=== PATIENT | female | born 1930 | race Caucasian/White ===

== ENCOUNTER → 2016-07-20 | Outpatient (CLI) | payer MEDICARE, OTHER ==
--- NOTE | 2016-07-20 16:40 | WOMENS IMAGING REPORT ---
EXAM DESCRIPTION: BILAT SCREENING MAMMO W/CAD COMPLETED DATE/TIME: 07/20/2016 4:19 pm REASON FOR STUDY: Z12.31, ROUTINE SCREENING MAMMO Z12.31 ENCNTR SCREEN MAMMOGRAM FOR MALIGNANT NEOP LASM OF TAMERA COMPARISON: Annual priors dating back to February 2011. TECHNIQUE: Standard craniocaudal and mediolateral oblique views of each breast recorded using digita l acquisition. LIMITATIONS: Positioning. FINDINGS: Findings present which are benign by mammographic criteria. No suspicious masses, calcifi cations or architectural distortion. Read with the assistance of CAD. .[facility] - R2 Cenova Version 1.3 .[facility] - R2 Cenova Version 1.3 .[facility] - R2 Cenova Version 2.4 .[facility] - R2 Cenova Version 2.4 .[facility] - R2 Ems Educator Version 9.2 Benign mammographic findings may include one or more of the following: Smooth masses, popcorn/rim/co arse calcifications, asymmetries, post-procedure changes, and lesions with long-standing stability. BREAST DENSITY: a. The breasts are almost entirely fatty. BIRAD: 2 BENIGN FINDING(S) RECOMMENDATION: ROUTINE SCREENING COMMENT: PATIENT NOTIFIED BY LETTER. [employer] recommends an annual screening mammogram for women aged 40 years or over. Each patient will receive a reminder prior to the anniversary date of her mammogram. The [employer] [place] [employer] (ACR) has developed recommendations for screening MRI of the breast s in certain patient populations, to be used in conjunction with mammography. Breast MRI surveillanc e may be appropriate for women with more than 20% lifetime risk of developing breast cancer as deter mined by genetic testing, significant family history of the disease, or history of mantle radiation f or Hodgkins Disease. ACR Practice Guidelines 2008. TECHNICAL DOCUMENTATION: FINDING NUMBER: (1) ASSESSMENT: (1) JOB ID: [id number] [employer]- All Rights Reserved
== END ==
LOC: WI 14:49
PROVIDERS: ATTEND Specialist
DX: Z12.31 Encounter for screening mammogram for malignant neoplasm of breast (principal)
CPT/HCPCS: 77067; G0202

== ENCOUNTER 2016-12-11 21:00 | Inpatient (IN) | payer MEDICARE, OTHER ==
[2016-12-11] MEDS ORDERED: CEFEPIME 2 GM/D5W RTU 50 ML IV ONE (21:06)
[2016-12-11] MEDS ORDERED: NORMAL SALINE 1000 ML 1,000 ML IV ONE ×2 (21:06→22:24)
[2016-12-11] MEDS ORDERED: ACETAMINOPHEN 325 MG TABLET PO ONE (21:06)
[2016-12-11] MEDS ORDERED: ACETAMINOPHEN 650 MG SUPP.RECT PR ONE (21:08)
[2016-12-11] MEDS ORDERED: VANCOMYCIN HCL INJ 1000 MG VIAL IV ONE (21:23)
--- NOTE | 2016-12-11 21:26 | ER Document Report ---
ED General - General Stated Complaint: ALTERED MENTAL STATUS Time Seen by Provider: 12/11/16 21:04 Cannot obtain history due to: Unstable vital signs, Altered mental status Notes: Patient is an 86-year-old female presenting by EMS with altered mental status and a fever. Patient herself is unable to provide any meaningful history secondary to altered mental status at time of arrival. EMS reports that apparently they were called to the patient's house earlier this morning for episode of hypotension but transport was declined for unclear reasons. They state on arrival to the patient's house today she was effectively unresponsive, extremely ill in appearance. They note that she became somewhat more responsive , at least opening her eyes spontaneously after beginning to receive IV fluids. Her reports that she has a history of similar presentations in the past secondary to sepsis due to urinary tract infections. TRAVEL OUTSIDE OF THE [place] IN LAST 30 DAYS: No - Related Data Allergies/Adverse Reactions: diazepam [From Valium] Allergy (Verified 12/12/16 00:50) Past Medical History - General Information source: Emergency Med Personnel Cannot obtain history due to: Unstable vital signs, Altered mental status - Social History Smoking Status: Unknown if Ever Smoked Lives with: Family Family History: Reviewed & Not Pertinent - Past Medical History Cardiac Medical History: Reports: Hx Hypercholesterolemia, Hx Hypertension Denies: Hx Coronary Artery Disease, Hx Heart Attack Pulmonary Medical History: Reports: Hx Pneumonia Denies: Hx Asthma, Hx Bronchitis, Hx COPD, Hx Tuberculosis Neurological Medical History: Reports: Hx Cerebrovascular Accident. 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 HEAD: Atraumatic, normocephalic. EYES: Pupils equal round and reactive to light, extraocular movements intact, sclera anicteric, conjunctiva are normal. ENT: nares patent, oropharynx clear without exudates. Extremely dry mucous membranes. NECK: Normal range of motion, supple without lymphadenopathy LUNGS: Breath sounds clear to auscultation bilaterally and equal. No wheezes rales or rhonchi. HEART: Regular tachycardia without murmurs ABDOMEN: Soft, nontender, normoactive bowel sounds. No guarding, no rebound. No masses appreciated. EXTREMITIES: Normal range of motion, no pitting or edema. No cyanosis. NEUROLOGICAL: No focal neurological deficits. Moves all extremities spontaneously and on command. PSYCH: Lethargic, seems quite confused. Oriented to person only. SKIN: Warm, Dry, poor skin turgor Course - Re-evaluation Re-evalutation: 12/11/16 21:24 Patient presents altered, lethargic, ill in appearance with tachycardia, tachypnea, fever consistent with sepsis possibly severe sepsis given her altered mental status and apparent hypotension for EMS. Immediately upon arrival to point of access were obtained. Rectal acetaminophen administered. She will be started on both cefepime and vancomycin for broad-spectrum coverage. Blood cultures, venous gas, lactate, and appropriate laboratories have been drawn. A stat portable chest x-ray to be obtained. We will catheterized for a urine specimen as patient has been ill in the past for pyelonephritis with similar presentation. However, given her ill appearance and vitals at time of arrival she is critically ill and will require frequent reassessments. 12/11/16 22:23 Urinalysis demonstrates findings consistent with an acute pyelonephritis. Patient tachycardia has improved although she remains profoundly confused beyond her baseline. Will continue to assess frequently. 12/12/16 00:26 Patient's tachycardia remains improved, heart rate currently is 90. Blood pressure is also normalized at 119 and 79. Patient is no longer tachypneic. Mental status is improving closer to her baseline per her at the bedside. She is in stable condition at this time. Pending admission to the hospitalist - Vital Signs Vital signs: Temp Pulse Resp BP Pulse Ox 100.6 F H 19 103/66 97 12/12/16 00:11 12/12/16 02:00 12/12/16 02:00 12/12/16 02:00 - Laboratory Result Diagrams: 12/11/16 21:32 12/11/16 21:32 Laboratory results interpreted by me: 12/11/16 12/11/16 12/11/16 21:32 21:32 21:32 RDW 19.5 H Seg Neuts % (Manual) 90 H Lymphocytes % (Manual) 5 L Monocytes % (Manual) 2 L Abs Neuts (Manual) 9.0 H BUN 22 H Glucose 138 H Lactic Acid 2.3 H Urine Protein Urine Nitrite Ur Leukocyte Esterase Urine Ascorbic Acid 12/11/16 21:32 RDW Seg Neuts % (Manual) Lymphocytes % (Manual) Monocytes % (Manual) Abs Neuts (Manual) BUN Glucose Lactic Acid Urine Protein 100 H Urine Nitrite POSITIVE H Ur Leukocyte Esterase MODERATE H Urine Ascorbic Acid 40 H - Diagnostic Test Radiology reviewed: Image reviewed, Reports reviewed Radiology results interpreted by me: 12/12/16 02:44 Chest x-ray: No acute infiltrate or pneumothorax Critical Care Note - Critical Care Note Total time excluding time spent on procedures (mins): 40 Comments: Critical care time spent obtaining history from patient or surrogate, discussions with consultants, development of treatment plan with patient or surrogate, evaluation of patient's response to treatment, examination of patient , ordering and performing treatments and interventions, ordering and review of laboratory studies, re-evaluation of patient's condition, ordering and review of radiographic studies and review of old charts Discharge - Discharge Clinical Impression: Pyelonephritis, Encephalopathy Sepsis Qualifiers: Sepsis type: sepsis due to unspecified organism Qualified Code(s): A41.9 - Sepsis, unspecified organism Condition: Fair Disposition: ADMITTED INPATIENT Admitting Provider: [facility] Unit Admitted: [facility]
--- NOTE | 2016-12-11 21:50 | RADIOLOGY REPORT (SQ) ---
EXAM DESCRIPTION: CHEST SINGLE VIEW COMPLETED DATE/TIME: 12/11/2016 9:38 pm REASON FOR STUDY: fever COMPARISON: 12/29/2015 EXAM PARAMETERS: NUMBER OF VIEWS: One view. TECHNIQUE: Single frontal radiographic view of the chest acquired. RADIATION DOSE: NA LIMITATIONS: None. FINDINGS: LUNGS AND PLEURA: No opacities, masses or pneumothorax. No pleural effusion. MEDIASTINUM AND HILAR STRUCTURES: No masses. Contour normal. HEART AND VASCULAR STRUCTURES: Heart normal in size. Normal vasculature. BONES: No acute findings. HARDWARE: None in the chest. OTHER: No other significant finding. IMPRESSION: NO ACUTE RADIOGRAPHIC FINDING IN THE CHEST. TECHNICAL DOCUMENTATION: JOB ID: [id number]
[2016-12-11 22:00] LABS: HEMATOCRIT 38.7 % (36.0-47.0); HEMOGLOBIN 12.4 g/dL (12.0-15.5); HGB HCT DIFFERENCE -1.5; MEAN CORPUSCULAR HEMOGLOBIN 29.5 pg (27.0-33.4); MEAN CORPUSCULAR HGB CONC 32.1 g/dL (32.0-36.0); MEAN CORPUSCULAR VOLUME 92 fl (80-97); RED BLOOD COUNT 4.21 10^6/uL (3.72-5.28); RED CELL DISTRIBUTION WIDTH 19.5 % (11.5-14.0); WHITE BLOOD COUNT 9.7 10^3/uL (4.0-10.5)
[2016-12-11 22:02] LABS: VENOUS BLOOD BASE EXCESS -2.9 mmol/L; VENOUS BLOOD HCO3 22.3 mmol/L (20-32); VENOUS BLOOD PCO2 40.5 mmHg (35-63); VENOUS BLOOD PH 7.36 (7.30-7.42)
[2016-12-11 22:11] LABS: ANION GAP 13 (5-19); BLOOD UREA NITROGEN 22 mg/dL (7-20); CARBON DIOXIDE 22 mmol/L (22-30); CHLORIDE 104 mmol/L (98-107); CREATININE RESULT 0.69 mg/dL (0.52-1.25); GLUCOSE 138 mg/dL (75-110); POTASSIUM 4.2 mmol/L (3.6-5.0); SODIUM 139.3 mmol/L (137-145)
[2016-12-11 22:21] LABS: APPEARANCE,URINE CLOUDY; BILIRUBIN,URINE NEGATIVE (NEGATIVE); GLUCOSE, URINE NEGATIVE (NEGATIVE); KETONES,URINE NEGATIVE (NEGATIVE); LEUKOCYTE ESTERASE,URINE MODERATE (NEGATIVE); NITRITE,URINE POSITIVE (NEGATIVE); PROTEIN,URINE 100 mg/dL (NEGATIVE); URINE SPECIFIC GRAVITY 1.013; UROBILINOGEN,URINE NEGATIVE mg/dL (<2.0)
[2016-12-11 22:24] LABS: BAND NEUTROPHILS % (MANUAL) 3 % (3-5); BASOPHILS % (MANUAL) 0 % (0-2); EOSINOPHILS % (MANUAL) 0 % (0-6); LYMPHOCYTES % (MANUAL) 5 % (13-45); TOTAL CELLS COUNTED 100
[2016-12-11 22:27] LABS: ANISOCYTOSIS 2+; OVALOCYTES SLIGHT; POIKILOCYTOSIS 1+; SCHISTOCYTES SLIGHT; TOXIC GRANULATION SLIGHT; TOXIC VACUOLATION PRESENT
[2016-12-12] MEDS ORDERED: GLUCAGON,HUMAN RECOMB 1 MG INJ IM PRN (04:28)
[2016-12-12] MEDS ORDERED: DEXTROSE 40% GEL 15 GM TUBE PO PRN ×2 (04:28)
[2016-12-12] MEDS ORDERED: DEXTROSE 50%-WATER 25 GM/50 ML DISP.SYRIN IV PRN ×2 (04:28)
[2016-12-12] MEDS ORDERED: NORMAL SALINE 1000 ML 1,000 ML IV PRN (04:30)
[2016-12-12] MEDS ORDERED: MAGNESIUM HYDROXIDE SUSP 30 ML UDCUP PO PRN (04:31)
[2016-12-12] MEDS ORDERED: PROMETHAZINE HCL 25 MG TABLET PO PRN (04:33)
[2016-12-12] MEDS ORDERED: VANCOMYCIN HCL 0 MG in DEXTROSE 5%-WATER 250 ML IV NR (04:45)
--- NOTE | 2016-12-12 04:47 | PDOC H&P ---
History of Present Illness Admission Date/PCP: 12/12/16 03:38 CORAZON CARRION PA-C Patient complains of: ams History of Present Illness: SANDY DANG is a 86 year old female with underlying hyperlipidemia, hypertension, hypothyroidism, and restless leg syndrome, along with a history of sepsis secondary to urinary tract infections, who presents to the emergency room for evaluation of above complaints. Patient has been discussed with emergency room physician who evaluated the patient. Patient is oriented to location and year, but not sure why she is in the hospital and is able to provide no history whatsoever in terms of acute or chronic events, review of systems, personal habits, family history, etc. No friends or family are present. Old inpatient records are reviewed. Intermittent confused answers to basic questions. EMS reportedly called to patient's house earlier the morning of December 11 for an episode of hypotension, but transport was declined for unclear reasons. EMS stated on arrival to the patient's house for their second trip, she was effectively unresponsive, extremely ill in appearance. She became somewhat more responsive, at least opening her eyes spontaneously, after IV fluids were started. Initial clinical picture upon emergency room arrival remained quite concerning, consistent with sepsis of unknown origin. Per emergency room physician and nursing staff, she has improved considerably with treatment. reportedly stated patient has had similar appearances in the past with sepsis due to urinary tract infections. She currently denies pain. Hospitalized on our service December 22- of last year, with final diagnoses including hypoglycemia in setting of patient with diabetes mellitus type 2, and urinary tract infection, responsive to Levaquin. History and physical and discharge summary have been reviewed Laboratory results are listed in [facility] and are reviewed. X-ray summary results are listed below, with full report(s) reviewed. . Social history/personal habits: . Reportedly no use of tobacco alcohol or illicit drugs. No further information available this point in time. Allergies/adverse reactions are listed in [facility] and are reviewed. Home medications initially autopopulated into IM5 may not accurately reflect patient's true medications, dosages, and/or frequencies. dyno technician to reconcile medications. Unfortunately, patient not able to provide any information related to medications/dosages/frequencies. REVIEW OF SYSTEMS: See history and present illness. No further information available this point in time. PHYSICAL EXAMINATION: 5 feet tall. 72.6 kg. BMI 31.2 kg/m. Blood pressure 129/58. Pulse 75 and regular. 97% saturation on 3 L oxygen per nasal cannula. Respirations are 22 and unlabored. Slightly obese otherwise well-nourished well-developed female appearing a number of years younger than her stated age. Pleasant awake alert and cooperative. Appears somewhat anxious, and to feel a bit under the weather , so to speak. Female emergency room nurse Mary Ellen is present, along with male emergency room nursing educator Tavo. Skin is warm and dry. No grossly obvious evidence of rash in areas of skin examined. No subcutaneous nodules palpated. ENT: Hearing grossly normal to normal conversation. Tongue midline on protrusion pink and slightly tacky. Eyes: No scleral icterus. Pupils equal and reactive to light at 4 mm. [place] conjunctivae. No raccoon eyes. Neck is supple and nontender to gentle active range of motion and palpation. Midline trachea. No palpable thyroid nodule mass enlargement or tenderness. Lymphatic: No palpable cervical or clavicular nodes. Neck and lymphatic exams limited by patient body habitus. Psychiatric: Somewhat limited evaluation, due to above issues. Please see History and present illness. Lungs: Auscultation reveals clear and equal breath sounds bilaterally. No use of accessory respiratory muscles. Patient is noted to have an intermittent slightly productive cough. Cardiovascular: Heart regular rate and rhythm, without gallop murmur or rub. No carotid or abdominal aortic bruits. Mild bilateral slightly pitting symmetric calf ankle and pedal edema. Faintly palpable dorsalis pedis pulses. Abdomen:soft somewhat obese nontender with positive bowel sounds. Unable to adequately evaluate abdomen for masses or organomegaly due to body habitus. Extremities: Feet are warm and dry. No calf tenderness to compression. Gentle manipulation of lower extremities fails to reveal any obvious evidence of injury or instability to knees hips or ankles. Neurologic: Moves all 4 extremities grossly normally. Patellar reflexes absent. Absent Babinski. Light touch somewhat difficult to adequately determine due to her mental status. Dorsiflexion and plantarflexion of feet 5 / 5 and symmetric. Past Medical History Past Medical History: Information obtained from review of current and old records. Patient not able to provide any information herself. Cardiac Medical History: Reports: Hyperlipidema, Hypertension Denies: Coronary Artery Disease, Myocardial Infarction Pulmonary Medical History: Reports: Pneumonia Denies: Asthma, Bronchitis, Chronic Obstructive Pulmonary Disease (COPD), Tuberculosis Neurological Medical History: Denies: Seizures Endocrine Medical History: Reports: Diabetes Mellitus Type 2 Musculoskeltal Medical History: Reports: Arthritis - Neck Hematology: Denies: Anemia Past Surgical History Past Surgical History: Information obtained from review of current and old records. Patient not able to provide any information herself. Past Surgical History: Reports: Appendectomy, Cholecystectomy Social History Information Source: Emergency Med Personnel, [facility] Records Lives with: Family Smoking Status: Unknown if Ever Smoked Frequency of Alcohol Use: None Hx Recreational Drug Use: No Hx Prescription Drug Abuse: No - Advance Directive Resuscitation Status: Full Code Surrogate healthcare decision maker:: Uncertain; likely . Family History Family History: Reviewed & Not Pertinent Parental Family History Reviewed: Yes - Father of coronary artery disease. Mother of complications of DM Children Family History Reviewed: No - No further information available this point in time. Sibling(s) Family History Reviewed.: No - No further information available this point in time. Medication/Allergy Home Medications: Amlodipine Besylate [Norvasc 10 mg Tablet] 10 mg PO QHS 12/12/16 Anastrozole [Arimidex 1 mg Tablet] 1 mg PO DAILY 12/12/16 Ascorbic Acid [Vitamin C 500 mg Tablet] 500 mg PO BID 12/12/16 Aspirin [Aspirin 325 mg Tablet] 325 mg PO QHS 12/12/16 Atorvastatin Calcium [Lipitor 20 mg Tablet] 20 mg PO QHS 12/12/16 Calcium Carbonate/Vitamin D3 [Oyster Shell 500-Vit D3 200 Tb] 1 tab PO QPM 12/12 Donepezil HCl [Aricept] 10 mg PO QPM 12/12/16 Eplerenone [Inspra] 50 mg PO QAM 12/12/16 Escitalopram Oxalate [Lexapro] 20 mg PO QPM 12/12/16 Ferrous Sulfate [Feosol 325 mg Tablet] 325 mg PO BID 12/12/16 Glimepiride [Amaryl 1 mg Tablet] 1 mg PO BID 12/12/16 Levothyroxine Sodium [Synthroid] 137 mcg PO QAM 12/12/16 Losartan Potassium [Cozaar 50 mg Tablet] 50 mg PO QHS 12/12/16 Metformin HCl [Glucophage] 500 mg PO BID 12/12/16 Omeprazole 20 mg PO QHS 12/12/16 Ropinirole HCl [Requip 2 mg Tablet] 2 mg PO BID 07/01/17 Sitagliptin Phosphate [Januvia 50 mg Tablet] 50 mg PO BID 12/12/16 Allergies/Adverse Reactions: diazepam [From Valium] Allergy (Verified 12/12/16 00:50) Physical Exam Vital Signs: Temp Pulse Resp BP Pulse Ox 100.6 F H 19 103/66 97 12/12/16 00:11 12/12/16 02:00 12/12/16 02:00 12/12/16 02:00 Results Impressions: Chest X-Ray 12/11/16 21:06 IMPRESSION: NO ACUTE RADIOGRAPHIC FINDING IN THE CHEST. Assessment & Plan - Diagnosis (1) Acute encephalopathy Is this a current diagnosis for this admission?: YesPlan: Likely secondary to underlying urinary tract infection. Should clear with time and treatment. (2) UTI (urinary tract infection) Qualifiers: Urinary tract infection type: site unspecified Is this a current diagnosis for this admission?: YesPlan: Urine culture results from December 2015 revealed. Antibiotics will consist of cefepime and intravenous vancomycin; pharmacy to assist with vancomycin dosing. I have strongly encouraged patient not to get out of bed, to avoid a fall with injury. Knee high SCDs for DVT prophylaxis, along with subcutaneous Lovenox. Impression and plans were discussed with patient. Time spent in evaluation and management of patient: 59 minutes. (3) HLD (hyperlipidemia) Qualifiers: Hyperlipidemia type: unspecified Qualified Code(s): E78.5 - Hyperlipidemia, unspecified Is this a current diagnosis for this admission?: YesPlan: Resume home medications as appropriate once these have been determined and reviewed. (4) HTN (hypertension) Qualifiers: Hypertension type: essential hypertension Qualified Code(s): I10 - Essential (primary) hypertension Is this a current diagnosis for this admission?: YesPlan: Resume home medications as appropriate once these have been determined and reviewed. - Inpatient Certification Based on my medical assessment, after consideration of the patient's comorbidities, presenting symptoms, or acuity I expect that the services needed warrant INPATIENT care.: Yes I certify that my determination is in accordance with my understanding of Medicare's requirements for reasonable and necessary INPATIENT services [42 CFR 412.3e].: Yes Medical Necessity: Need Close Monitoring Due to Risk of Patient Decompensation, Need For IV Fluids, Need For Continuous Telemetry Monitoring, Need for IV Antibiotics, Risk of Complication if Not Cared For in Hospital, Risk of Diagnosis Which Will Require Inpatient Eval/Care/Monitoring Post Hospital Care: D/C or Transfer Summary
[2016-12-12 07:03] LABS: ABSOLUTE LYMPHOCYTES (AUTO) 1.2 10^3/uL (0.5-4.7); BASOPHILS % (AUTO) 0.1 % (0-2); EOSINOPHILS % (AUTO) 0.1 % (0-6); HEMATOCRIT 35.6 % (36.0-47.0); HEMOGLOBIN 11.4 g/dL (12.0-15.5); HGB HCT DIFFERENCE -1.4; LYMPHOCYTES % (AUTO) 7.7 % (13-45); MEAN CORPUSCULAR HEMOGLOBIN 29.2 pg (27.0-33.4); MEAN CORPUSCULAR HGB CONC 31.9 g/dL (32.0-36.0); MEAN CORPUSCULAR VOLUME 92 fl (80-97); MONOCYTES % (AUTO) 12.3 % (3-13); RED CELL DISTRIBUTION WIDTH 20.1 % (11.5-14.0); SEGMENTED NEUTROPHILS % (AUTO) 79.8 % (42-78); WHITE BLOOD COUNT 16.3 10^3/uL (4.0-10.5)
[2016-12-12 07:14] LABS: ALANINE AMINOTRANSFERASE 105 U/L (9-52); ALBUMIN 3.3 g/dL (3.5-5.0); ALKALINE PHOSPHATASE 129 U/L (38-126); ANION GAP 7 (5-19); ASPARTATE AMINO TRANSFERASE 102 U/L (14-36); BILIRUBIN,DIRECT 0.3 mg/dL (0.0-0.4); BILIRUBIN,TOTAL 0.5 mg/dL (0.2-1.3); BLOOD UREA NITROGEN 17 mg/dL (7-20); CALCIUM 8.8 mg/dL (8.4-10.2); CARBON DIOXIDE 27 mmol/L (22-30); CHLORIDE 105 mmol/L (98-107); CREATININE RESULT 0.68 mg/dL (0.52-1.25); GLUCOSE 148 mg/dL (75-110); MAGNESIUM 1.8 mg/dL (1.6-2.3); TOTAL PROTEIN 5.9 g/dL (6.3-8.2)
[2016-12-12 07:18] LABS: ANISOCYTOSIS 2+; POIKILOCYTOSIS SLIGHT; POLYCHROMASIA SLIGHT; TARGET CELLS SLIGHT; TOXIC GRANULATION 1+
[2016-12-12] MEDS: DOCUSATE SODIUM 100 MG CAPSULE PO SCH ×2 (10:30→17:54)
[2016-12-12] MEDS: ENOXAPARIN SODIUM INJ 40 MG/0.4 ML DISP.SYRIN SUBCUT SCH (10:31)
[2016-12-12] MEDS: CEFEPIME 2 GM/D5W RTU 50 ML IV SCH ×2 (10:35→22:04)
[2016-12-12] MEDS ORDERED: LEVOTHYROXINE SODIUM 0.025 MG TABLET PO ONE (14:30)
[2016-12-12] MEDS ORDERED: LEVOTHYROXINE SODIUM 0.112 MG TABLET PO ONE (14:30)
[2016-12-12] MEDS: ACETAMINOPHEN 325 MG TABLET PO PRN (15:38)
[2016-12-12] MEDS: DONEPEZIL HCL 5 MG TABLET PO SCH (17:53)
[2016-12-12] MEDS: ESCITALOPRAM OXALATE 10 MG TABLET PO SCH (17:54)
[2016-12-12] MEDS ORDERED: (PENDING PHARMACY ID) (Donepezil Hcl [Aricept] 10 MG) PO SCH (18:00)
[2016-12-12] MEDS: ASPIRIN 325 MG TABLET PO SCH (22:03)
[2016-12-13 07:04] LABS: ALANINE AMINOTRANSFERASE 79 U/L (9-52); ALBUMIN 3.5 g/dL (3.5-5.0); ALKALINE PHOSPHATASE 107 U/L (38-126); ANION GAP 7 (5-19); ASPARTATE AMINO TRANSFERASE 64 U/L (14-36); BILIRUBIN,DIRECT 0.3 mg/dL (0.0-0.4); BILIRUBIN,TOTAL 0.5 mg/dL (0.2-1.3); BLOOD UREA NITROGEN 16 mg/dL (7-20); CALCIUM 8.9 mg/dL (8.4-10.2); CARBON DIOXIDE 27 mmol/L (22-30); CHLORIDE 106 mmol/L (98-107); CREATININE RESULT 0.64 mg/dL (0.52-1.25); GLUCOSE 118 mg/dL (75-110); POTASSIUM 4.4 mmol/L (3.6-5.0); SODIUM 140.4 mmol/L (137-145); TOTAL PROTEIN 6.4 g/dL (6.3-8.2)
[2016-12-13 07:15] LABS: ABSOLUTE EOSINOPHILS # (AUTO) 0.1 10^3/uL (0.0-0.6); ABSOLUTE LYMPHOCYTES (AUTO) 1.2 10^3/uL (0.5-4.7); ABSOLUTE MONOCYTES (AUTO) 1.6 10^3/uL (0.1-1.4); ABSOLUTE NEUT (AUTO) 6.4 10^3/uL (1.7-8.2); BASOPHILS % (AUTO) 0.4 % (0-2); EOSINOPHILS % (AUTO) 0.9 % (0-6); HEMATOCRIT 39.5 % (36.0-47.0); HEMOGLOBIN 12.7 g/dL (12.0-15.5); HGB HCT DIFFERENCE -1.4; LYMPHOCYTES % (AUTO) 13.1 % (13-45); MEAN CORPUSCULAR HEMOGLOBIN 29.7 pg (27.0-33.4); MEAN CORPUSCULAR HGB CONC 32.1 g/dL (32.0-36.0); MEAN CORPUSCULAR VOLUME 92 fl (80-97); MONOCYTES % (AUTO) 16.9 % (3-13); RED BLOOD COUNT 4.27 10^6/uL (3.72-5.28); RED CELL DISTRIBUTION WIDTH 19.8 % (11.5-14.0); SEGMENTED NEUTROPHILS % (AUTO) 68.7 % (42-78); WHITE BLOOD COUNT 9.3 10^3/uL (4.0-10.5)
[2016-12-13 07:23] LABS: ANISOCYTOSIS 2+; BURR CELLS SLIGHT; OVALOCYTES SLIGHT; PLATELET CLUMPS PRESENT; POIKILOCYTOSIS 1+
[2016-12-13] MEDS ORDERED: (PENDING PHARMACY ID) (Levothyroxine Sodium [Synthroid] 137 MCG) PO SCH (08:00)
[2016-12-13] MEDS: LEVOTHYROXINE SODIUM 0.025 MG TABLET PO SCH (08:02)
[2016-12-13] MEDS: LEVOTHYROXINE SODIUM 0.112 MG TABLET PO SCH (08:02)
[2016-12-13] MEDS: CEFEPIME 2 GM/D5W RTU 50 ML IV SCH ×2 (09:05→21:46)
[2016-12-13] MEDS: DOCUSATE SODIUM 100 MG CAPSULE PO SCH ×2 (09:06→17:08)
[2016-12-13] MEDS: ENOXAPARIN SODIUM INJ 40 MG/0.4 ML DISP.SYRIN SUBCUT SCH (09:07)
--- NOTE | 2016-12-13 14:04 | PDOC PROGRESS REPORT ---
Subjective Progress Note for:: 12/13/16 Subjective:: reason for visit: f/u bacteremia, UTI, encephalopathy hospital course: per H&P "SANDY DANG is a 86 year old female with underlying hyperlipidemia, hypertension, hypothyroidism, and restless leg syndrome, along with a history of sepsis secondary to urinary tract infections, who presents to the emergency room for evaluation of above complaints. Patient has been discussed with emergency room physician who evaluated the patient. Patient is oriented to location and year, but not sure why she is in the hospital and is able to provide no history whatsoever in terms of acute or chronic events, review of systems, personal habits, family history, etc. No friends or family are present. Old inpatient records are reviewed. Intermittent confused answers to basic questions. EMS reportedly called the patient's house earlier the morning of December 11 for an episode of hypotension, but transport was declined for unclear reasons. EMS stated on arrival to the patient's house for her second trip, she was effectively unresponsive, extremely ill in appearance. She became somewhat more responsive, at least opening her eyes spontaneously, after IV fluids were started. Initial clinical picture upon emergency room arrival remained quite concerning, consistent with sepsis of unknown origin. Per emergency room physician and nursing staff, she has improved considerably with treatment. reportedly stated patient has had similar appearances in the past with sepsis due to urinary tract infections. She currently denies pain. Hospitalized on our service December 22- of last year, with final diagnoses including hypoglycemia in setting of patient with diabetes mellitus type 2, and urinary tract infection, responsive to Levaquin. History and physical and discharge summary have been reviewed. " cultures are showing a probable ecoli as the source for her ills. she has returned to baseline with treatment as for her strength and mental state. she is now afebrile. I suspect she can d/c home in the morning, once her final cultures are noted. ROS: denies chest pain, palpitations, n/v/d; all systems reviewed, see above, remaining systems negative. Physical Exam Vital Signs: Temp Pulse Resp BP Pulse Ox 99.0 F 69 20 120/85 100 12/13/16 12:08 12/13/16 12:08 12/13/16 12:08 12/13/16 12:08 12/13/16 12:08 Intake & Output 12/12/16 12/13/16 12/14/16 06:59 06:59 06:59 Intake Total 2160 500 Balance 2160 500 Weight 75 kg General appearance: PRESENT: no acute distress, well-developed, well-nourished Head exam: PRESENT: atraumatic, normocephalic Eye exam: PRESENT: EOMI. ABSENT: conjunctival injection, scleral icterus Mouth exam: PRESENT: moist, neck supple Neck exam: ABSENT: carotid bruit, JVD, lymphadenopathy, tenderness Respiratory exam: PRESENT: clear to auscultation stella. ABSENT: accessory muscle use Cardiovascular exam: PRESENT: RRR. ABSENT: systolic murmur Pulses: PRESENT: normal radial pulses, normal dorsalis pedis pul GI/Abdominal exam: PRESENT: normal bowel sounds, soft. ABSENT: tenderness Extremities exam: ABSENT: calf tenderness, pedal edema Musculoskeletal exam: PRESENT: ambulatory, full ROM Neurological exam: PRESENT: alert, awake, oriented to person, oriented to place , oriented to time Psychiatric exam: PRESENT: appropriate affect, normal mood Skin exam: PRESENT: warm, other - pale Results Laboratory Results: 12/13/16 06:25 12/13/16 06:25 12/13/16 12/13/16 12/13/16 06:25 06:25 06:25 WBC 9.3 RBC 4.27 Hgb 12.7 Hct 39.5 MCV 92 MCH 29.7 MCHC 32.1 RDW 19.8 H Plt Count 218 Seg Neutrophils % 68.7 Lymphocytes % 13.1 Monocytes % 16.9 H Eosinophils % 0.9 Basophils % 0.4 Absolute Neutrophils 6.4 Absolute Lymphocytes 1.2 Absolute Monocytes 1.6 H Absolute Eosinophils 0.1 Absolute Basophils 0.0 Sodium 140.4 Potassium 4.4 Chloride 106 Carbon Dioxide 27 Anion Gap 7 BUN 16 Creatinine 0.64 Est GFR ( Amer) > 60 Est GFR (Non-Af Amer) > 60 Glucose 118 H Calcium 8.9 Total Bilirubin 0.5 AST 64 H ALT 79 H Alkaline Phosphatase 107 Ammonia 9.5 Total Protein 6.4 Albumin 3.5 Assessment & Plan - Diagnosis (1) Bacteremia Is this a current diagnosis for this admission?: YesPlan: probable e coli from UTI. continue cefepime until final culx's negative. will need 2 wks abx (2) Acute encephalopathy Is this a current diagnosis for this admission?: YesPlan: resolved; 2/2 above (3) UTI (urinary tract infection) Qualifiers: Urinary tract infection type: site unspecified Is this a current diagnosis for this admission?: YesPlan: e coli; continue abx - Time Time Spent with patient: 25-34 minutes Medications reviewed and adjusted accordingly: Yes Anticipated discharge: Home Within: within 24 hours
[2016-12-13] MEDS: DONEPEZIL HCL 5 MG TABLET PO SCH (17:08)
[2016-12-13] MEDS: ESCITALOPRAM OXALATE 10 MG TABLET PO SCH (17:08)
[2016-12-13] MEDS: ASPIRIN 325 MG TABLET PO SCH (21:45)
[2016-12-14] MEDS ORDERED: GUAIFENESIN SYRP 200 MG/10 ML UDC PO PRN (00:44)
[2016-12-14] MEDS: LEVOTHYROXINE SODIUM 0.112 MG TABLET PO SCH (07:34)
[2016-12-14] MEDS: LEVOTHYROXINE SODIUM 0.025 MG TABLET PO SCH (07:34)
--- NOTE | 2016-12-14 08:28 | EKG REPORT ---
SEVERITY:- OTHERWISE NORMAL ECG - SINUS RHYTHM LEFT AXIS DEVIATION : Confirmed by: Regino Aguayo MD 14-Dec-2016 08:28:04
[2016-12-14] MEDS ORDERED: MAGNESIUM HYDROXIDE SUSP 30 ML UDCUP PO PRN (08:57)
[2016-12-14 09:20] LABS: BLOOD UREA NITROGEN 12 mg/dL (7-20); CALCIUM 9.1 mg/dL (8.4-10.2); CARBON DIOXIDE 29 mmol/L (22-30); CHLORIDE 100 mmol/L (98-107); CREATININE RESULT 0.58 mg/dL (0.52-1.25); GLUCOSE 119 mg/dL (75-110); POTASSIUM 4.1 mmol/L (3.6-5.0)
[2016-12-14 09:21] LABS: ANION GAP 8 (5-19); SODIUM 137.4 mmol/L (137-145)
[2016-12-14 09:31] LABS: TROPONIN I 0.067 ng/mL
[2016-12-14] MEDS: DOCUSATE SODIUM 100 MG CAPSULE PO SCH ×2 (10:12→17:32)
[2016-12-14] MEDS: CEFEPIME 2 GM/D5W RTU 50 ML IV SCH ×2 (10:12→22:22)
[2016-12-14] MEDS: ENOXAPARIN SODIUM INJ 40 MG/0.4 ML DISP.SYRIN SUBCUT SCH (10:12)
--- NOTE | 2016-12-14 10:32 | RADIOLOGY REPORT (SQ) ---
EXAM DESCRIPTION: CHEST PA/LAT COMPLETED DATE/TIME: 12/14/2016 9:50 am REASON FOR STUDY: wheezing COMPARISON: 12/29/2015 EXAM PARAMETERS: NUMBER OF VIEWS: two views TECHNIQUE: Digital Frontal and Lateral radiographic views of the chest acquired. RADIATION DOSE: NA LIMITATIONS: none FINDINGS: LUNGS AND PLEURA: No opacities, masses or pneumothorax. No pleural effusion. MEDIASTINUM AND HILAR STRUCTURES: No masses or contour abnormalities. HEART AND VASCULAR STRUCTURES: Mild cardiomegaly. No evidence failure. BONES: No acute findings. HARDWARE: None in the chest. OTHER: Chronic elevation of the right hemidiaphragm. IMPRESSION: Mild cardiomegaly without evidence of acute cardiopulmonary disease. TECHNICAL DOCUMENTATION: JOB ID: [id number] [employer]- All Rights Reserved
[2016-12-14] MEDS: IPRATROPIUM/ALBUTEROL 0.5-2.5 MG/3 ML AMPUL NEB PRN (11:43)
--- NOTE | 2016-12-14 12:48 | EKG REPORT ---
SEVERITY:- ABNORMAL ECG - SINUS RHYTHM LEFT AXIS DEVIATION LEFT VENTRICULAR HYPERTROPHY CONSIDER ANTERIOR INFARCT NONSPECIFIC ST-T CHANGES- INFERIOR LEADS : Confirmed by: Regino Aguayo MD 14-Dec-2016 12:47:49
--- NOTE | 2016-12-14 14:40 | PDOC PROGRESS REPORT ---
Subjective Progress Note for:: 12/14/16 Subjective:: reason for visit: f/u bacteremia, UTI, encephalopathy hospital course: per H&P "SANDY DANG is a 86 year old female with underlying hyperlipidemia, hypertension, hypothyroidism, and restless leg syndrome, along with a history of sepsis secondary to urinary tract infections, who presents to the emergency room for evaluation of above complaints. Patient has been discussed with emergency room physician who evaluated the patient. Patient is oriented to location and year, but not sure why she is in the hospital and is able to provide no history whatsoever in terms of acute or chronic events, review of systems, personal habits, family history, etc. No friends or family are present. Old inpatient records are reviewed. Intermittent confused answers to basic questions. EMS reportedly called the patient's house earlier the morning of December 11 for an episode of hypotension, but transport was declined for unclear reasons. EMS stated on arrival to the patient's house for her second trip, she was effectively unresponsive, extremely ill in appearance. She became somewhat more responsive, at least opening her eyes spontaneously, after IV fluids were started. Initial clinical picture upon emergency room arrival remained quite concerning, consistent with sepsis of unknown origin. Per emergency room physician and nursing staff, she has improved considerably with treatment. reportedly stated patient has had similar appearances in the past with sepsis due to urinary tract infections. She currently denies pain. Hospitalized on our service December 22- of last year, with final diagnoses including hypoglycemia in setting of patient with diabetes mellitus type 2, and urinary tract infection, responsive to Levaquin. History and physical and discharge summary have been reviewed. " cultures are showing a pansens ecoli as the source for her ills. she has returned to baseline with treatment as for her strength and mental state. she is now afebrile. she had a very difficult night, nursing reports she was confused and became combative however she reports to me that she lost IV access and the staff had a very difficult time replacing and she got tired of being a pin cushion and told them to stop. She reports they continued to press her and ultimately restrained her with soft wrist restraints until they could get a Rt AC line in place. she has clear recollection of the night's events, at least her version. Night nurse not available to me but report given to day shift was that she pulled her IV's out repeatedly prompting the multiple needle sticks to replace them and finally restrained to keep her from doing so again. Nevertheless she is awake, alert and appropriate for me this morning and out of restraints for several hours. unfortunately she is now wheezing and dyspneic. she denies chest pain, palpitations, cough with phlegm, fevers have broken. ROS: denies chest pain, palpitations, n/v/d; all systems reviewed, see above, remaining systems negative. Physical Exam Vital Signs: Temp Pulse Resp BP Pulse Ox 98.2 F 60 20 130/40 H 96 12/14/16 11:58 12/14/16 11:58 12/14/16 11:58 12/14/16 11:58 12/14/16 11:58 Intake & Output 12/13/16 12/14/16 12/15/16 06:59 06:59 06:59 Intake Total 2160 1533 480 Balance 2160 1533 480 Weight 75 kg 75.2 kg General appearance: PRESENT: no acute distress, well-developed, well-nourished, appropriate Head exam: PRESENT: atraumatic, normocephalic Eye exam: PRESENT: EOMI. ABSENT: conjunctival injection, scleral icterus Mouth exam: PRESENT: moist, neck supple Neck exam: ABSENT: carotid bruit, JVD, lymphadenopathy, tenderness Respiratory exam: PRESENT: bilat exp wheezes and crackles, no rales or dullness to percusion Cardiovascular exam: PRESENT: RRR. ABSENT: systolic murmur Pulses: PRESENT: normal radial pulses, normal dorsalis pedis pul GI/Abdominal exam: PRESENT: normal bowel sounds, soft. ABSENT: tenderness Extremities exam: ABSENT: calf tenderness, pedal edema Musculoskeletal exam: PRESENT: ambulatory, full ROM Neurological exam: PRESENT: alert, awake, oriented to person, oriented to place , oriented to time Psychiatric exam: PRESENT: appropriate affect, normal mood Skin exam: PRESENT: warm, other - pale Results Laboratory Results: 12/13/16 06:25 12/14/16 08:56 12/14/16 08:56 Sodium 137.4 Potassium 4.1 Chloride 100 Carbon Dioxide 29 Anion Gap 8 BUN 12 Creatinine 0.58 Est GFR ( Amer) > 60 Est GFR (Non-Af Amer) > 60 Glucose 119 H Calcium 9.1 12/14/16 08:56 Troponin I 0.067 NT-Pro-B Natriuret Pep 2230 H Impressions: Chest X-Ray 12/14/16 00:00 IMPRESSION: Mild cardiomegaly without evidence of acute cardiopulmonary disease. Status: Imported from PACS Assessment & Plan - Diagnosis (1) Wheezing Is this a current diagnosis for this admission?: YesPlan: new; unclear source, cxr unrevealing. start nebs, IS and monitor for improvement (2) Bacteremia Is this a current diagnosis for this admission?: YesPlan: probable e coli from UTI. continue cefepime, repeat bld culxs to confirm adequate treatment. will need 2 wks abx, consider chg to levaquin at d/c. (3) UTI (urinary tract infection) Qualifiers: Urinary tract infection type: site unspecified Is this a current diagnosis for this admission?: YesPlan: e coli; continue abx (4) Acute encephalopathy Is this a current diagnosis for this admission?: YesPlan: resolved; 2/2 above. It is not clear to me what happened last night, will continue to monitor. (5) Elevated troponin Is this a current diagnosis for this admission?: YesPlan: unclear significance as she is chest pain free and only nonspecific findings on her ecg. will repeat in am but likely related to the infection and troponin leak. - Time Time Spent with patient: 25-34 minutes Medications reviewed and adjusted accordingly: Yes Within: within 24 hours - Plan Summary Plan Summary: hopefully home in am if resp status clears back to normal; if not may need ct scan to further investigate
[2016-12-14] MEDS ORDERED: ALBUTEROL SULFATE 0.083% NEB 2.5 MG/3 ML AMPUL NEB ONE (15:00)
[2016-12-14] MEDS: ESCITALOPRAM OXALATE 10 MG TABLET PO SCH (17:31)
[2016-12-14] MEDS: DONEPEZIL HCL 5 MG TABLET PO SCH (17:32)
[2016-12-14] MEDS: ALBUTEROL SULFATE 0.083% NEB 2.5 MG/3 ML AMPUL NEB SCH (20:47)
[2016-12-14] MEDS: ASPIRIN 325 MG TABLET PO SCH (22:22)
[2016-12-15 06:15] LABS: ANION GAP 9 (5-19); BLOOD UREA NITROGEN 13 mg/dL (7-20); CALCIUM 9.4 mg/dL (8.4-10.2); CARBON DIOXIDE 29 mmol/L (22-30); CHLORIDE 104 mmol/L (98-107); CREATININE RESULT 0.66 mg/dL (0.52-1.25); GLUCOSE 137 mg/dL (75-110); SODIUM 142.4 mmol/L (137-145)
[2016-12-15 06:30] LABS: TROPONIN I 0.043 ng/mL
[2016-12-15 06:53] LABS: ABSOLUTE EOSINOPHILS # (AUTO) 0.1 10^3/uL (0.0-0.6); ABSOLUTE LYMPHOCYTES (AUTO) 1.6 10^3/uL (0.5-4.7); ABSOLUTE MONOCYTES (AUTO) 1.2 10^3/uL (0.1-1.4); ABSOLUTE NEUT (AUTO) 4.7 10^3/uL (1.7-8.2); BASOPHILS % (AUTO) 0.4 % (0-2); EOSINOPHILS % (AUTO) 0.8 % (0-6); HEMATOCRIT 35.3 % (36.0-47.0); HEMOGLOBIN 11.6 g/dL (12.0-15.5); HGB HCT DIFFERENCE -0.5; LYMPHOCYTES % (AUTO) 21.2 % (13-45); MEAN CORPUSCULAR HEMOGLOBIN 29.8 pg (27.0-33.4); MEAN CORPUSCULAR HGB CONC 32.9 g/dL (32.0-36.0); MEAN CORPUSCULAR VOLUME 90 fl (80-97); MONOCYTES % (AUTO) 15.3 % (3-13); RED CELL DISTRIBUTION WIDTH 15.4 % (11.5-14.0); SEGMENTED NEUTROPHILS % (AUTO) 62.3 % (42-78); WHITE BLOOD COUNT 7.6 10^3/uL (4.0-10.5)
[2016-12-15 07:04] LABS: ANISOCYTOSIS SLIGHT; OVALOCYTES SLIGHT; POLYCHROMASIA SLIGHT
[2016-12-15 07:06] LABS: TARGET CELLS SLIGHT; TEAR DROP CELLS SLIGHT
[2016-12-15] MEDS: LEVOTHYROXINE SODIUM 0.112 MG TABLET PO SCH (07:54)
[2016-12-15] MEDS: LEVOTHYROXINE SODIUM 0.025 MG TABLET PO SCH (07:55)
[2016-12-15] MEDS: DOCUSATE SODIUM 100 MG CAPSULE PO SCH ×2 (09:51→17:45)
[2016-12-15] MEDS: ENOXAPARIN SODIUM INJ 40 MG/0.4 ML DISP.SYRIN SUBCUT SCH (09:52)
[2016-12-15] MEDS: CEFEPIME 2 GM/D5W RTU 50 ML IV SCH ×2 (09:53→21:17)
[2016-12-15] MEDS: ALBUTEROL SULFATE 0.083% NEB 2.5 MG/3 ML AMPUL NEB SCH ×3 (10:31→20:57)
[2016-12-15] MEDS: ESCITALOPRAM OXALATE 10 MG TABLET PO SCH (17:45)
[2016-12-15] MEDS: DONEPEZIL HCL 5 MG TABLET PO SCH (17:45)
--- NOTE | 2016-12-15 18:41 | PDOC PROGRESS REPORT ---
Subjective Progress Note for:: 12/15/16 Subjective:: Patient presented to the hospital with sepsis consisting of altered mental status. She has E. coli in her urine and bacteremia. Her admission troponin is positive. Physical Exam Vital Signs: Temp Pulse Resp BP Pulse Ox 97.7 F 66 18 142/49 H 97 12/15/16 16:12 12/15/16 16:12 12/15/16 16:12 12/15/16 16:12 12/15/16 16:12 Intake & Output 12/14/16 12/15/16 12/16/16 06:59 06:59 06:59 Intake Total 1533 1272 708 Output Total 200 Balance 1533 1072 708 Weight 75.2 kg 81.3 kg Additional comments: Skin appears healthy for her age. She does have a right sided facial droop. She denies dyspnea but she is mildly tachypneic with conversation. Per the patient and her this is her baseline. She does have bibasilar crackles about a third of the way up. Her cardiac exam is regular without murmurs, gallops or rubs. The abdomen is soft and flat. Bowel sounds are present. The lower extremities demonstrate only trace edema. The skin is warm dry and intact. Review of systems. Overnight, the patient did have a night sweats and she has been coughing up some yellow-green phlegm. Results Laboratory Results: 12/15/16 05:11 12/15/16 05:11 12/15/16 12/15/16 05:11 05:11 WBC 7.6 RBC 3.90 Hgb 11.6 L Hct 35.3 L MCV 90 MCH 29.8 MCHC 32.9 RDW 15.4 H Plt Count 270 Seg Neutrophils % 62.3 Lymphocytes % 21.2 Monocytes % 15.3 H Eosinophils % 0.8 Basophils % 0.4 Absolute Neutrophils 4.7 Absolute Lymphocytes 1.6 Absolute Monocytes 1.2 Absolute Eosinophils 0.1 Absolute Basophils 0.0 Sodium 142.4 Potassium 5.0 Chloride 104 Carbon Dioxide 29 Anion Gap 9 BUN 13 Creatinine 0.66 Est GFR ( Amer) > 60 Est GFR (Non-Af Amer) > 60 Glucose 137 H Calcium 9.4 12/14/16 06:50 Sputum Gram Stain - Final 12/14/16 12/15/16 08:56 05:11 Troponin I 0.067 0.043 NT-Pro-B Natriuret Pep 2230 H 1640 H Impressions: Chest X-Ray 12/14/16 00:00 IMPRESSION: Mild cardiomegaly without evidence of acute cardiopulmonary disease. Assessment & Plan - Diagnosis (1) Bacteremia Is this a current diagnosis for this admission?: Yes (2) Wheezing Is this a current diagnosis for this admission?: Yes (3) Elevated troponin Is this a current diagnosis for this admission?: Yes (4) HLD (hyperlipidemia) Qualifiers: Hyperlipidemia type: unspecified Qualified Code(s): E78.5 - Hyperlipidemia, unspecified Is this a current diagnosis for this admission?: Yes (5) HTN (hypertension) Qualifiers: Hypertension type: essential hypertension Qualified Code(s): I10 - Essential (primary) hypertension Is this a current diagnosis for this admission?: Yes (6) UTI (urinary tract infection) Qualifiers: Urinary tract infection type: site unspecified Is this a current diagnosis for this admission?: Yes (7) Acute encephalopathy Is this a current diagnosis for this admission?: Yes (8) Acute UTI Is this a current diagnosis for this admission?: Yes - Time Time Spent with patient: 15-24 minutes - Inpatient Certification Medical Necessity: Need for IV Antibiotics - Plan Summary Plan Summary: Patient's encephalopathy appears to have cleared. At this point in time she will remain on intravenous antibiotics secondary to the fact that she had a drenching night sweats. Hopefully, I will be able to transition her to oral antibiotics possibly tomorrow. The patient has had frequent urinary tract infections. The is currently unhappy with their current urologist. I suggested that he discuss this and the patient discuss this with their primary prompt care rn and perhaps she can recommend a new urologist. Discharge is anticipated in 24-48 hours.
[2016-12-15] MEDS: ASPIRIN 325 MG TABLET PO SCH (21:17)
[2016-12-15] MEDS: INSULIN LISPRO 100 UNIT/ML 3 ML VIAL SUBCUT PRN (22:22)
[2016-12-16 06:31] LABS: ANION GAP 10 (5-19); BLOOD UREA NITROGEN 13 mg/dL (7-20); CARBON DIOXIDE 29 mmol/L (22-30); CHLORIDE 99 mmol/L (98-107); CREATININE RESULT 0.59 mg/dL (0.52-1.25); GLUCOSE 137 mg/dL (75-110); POTASSIUM 4.8 mmol/L (3.6-5.0); SODIUM 137.8 mmol/L (137-145)
[2016-12-16] MEDS: ALBUTEROL SULFATE 0.083% NEB 2.5 MG/3 ML AMPUL NEB SCH ×3 (08:05→20:21)
[2016-12-16] MEDS: LEVOTHYROXINE SODIUM 0.025 MG TABLET PO SCH (08:25)
[2016-12-16] MEDS: LEVOTHYROXINE SODIUM 0.112 MG TABLET PO SCH (08:25)
[2016-12-16] MEDS: DOCUSATE SODIUM 100 MG CAPSULE PO SCH ×2 (10:31→17:12)
[2016-12-16] MEDS: ENOXAPARIN SODIUM INJ 40 MG/0.4 ML DISP.SYRIN SUBCUT SCH (10:33)
[2016-12-16] MEDS: CEFEPIME 2 GM/D5W RTU 50 ML IV SCH ×2 (10:34→22:49)
--- NOTE | 2016-12-16 11:33 | PDOC PROGRESS REPORT ---
Subjective Progress Note for:: 12/16/16 Subjective:: Patient presented to the hospital with sepsis consisting of altered mental status. She has E. coli in her urine and bacteremia. Her admission troponin is positive. The patient has been receiving cefepime. Her encephalopathy has cleared. I was preparing to discharge the patient, but, reviewing her culture data again she is now growing Enterobacter cloaca PA in her sputum. I do not have the susceptibilities back. The patient continues to have wheezing and rales. She has an elevated pro and BNP. I have ordered an echocardiogram. However, the patient and her called me that Dr. Berman in [place] told her that her heart is normal during evaluation in August 2016. On review of systems the patient does cough with eating. This has been going on since her strokes. She denies wanting an evaluation from speech therapy. Physical Exam Vital Signs: Temp Pulse Resp BP Pulse Ox 98.9 F 62 18 122/48 L 98 12/16/16 08:18 12/16/16 08:18 12/16/16 08:18 12/16/16 08:18 12/16/16 08:18 Intake & Output 12/15/16 12/16/16 12/17/16 06:59 06:59 06:59 Intake Total 1272 1473 Output Total 200 200 Balance 1072 1273 Weight 81.3 kg 80.7 kg General appearance: PRESENT: no acute distress, cooperative Head exam: PRESENT: atraumatic Eye exam: PRESENT: EOMI Mouth exam: PRESENT: neck supple Respiratory exam: PRESENT: accessory muscle use, crackles, wheezes Cardiovascular exam: PRESENT: RRR GI/Abdominal exam: PRESENT: normal bowel sounds, soft Rectal exam: PRESENT: deferred Neurological exam: PRESENT: alert, awake Psychiatric exam: PRESENT: appropriate affect Skin exam: PRESENT: normal color Results Laboratory Results: 12/15/16 05:11 12/16/16 05:09 12/16/16 05:09 Sodium 137.8 Potassium 4.8 Chloride 99 Carbon Dioxide 29 Anion Gap 10 BUN 13 Creatinine 0.59 Est GFR ( Amer) > 60 Est GFR (Non-Af Amer) > 60 Glucose 137 H Calcium 9.0 12/14/16 06:50 Sputum Gram Stain - Final 12/14/16 06:50 Sputum Sputum Culture - Final Enterobacter Cloacae C.albicans/C.dubliniensis Normal [place] Absent 12/14/16 12/15/16 08:56 05:11 Troponin I 0.067 0.043 NT-Pro-B Natriuret Pep 2230 H 1640 H Impressions: Chest X-Ray 12/14/16 00:00 IMPRESSION: Mild cardiomegaly without evidence of acute cardiopulmonary disease. Assessment & Plan - Diagnosis (1) Bacteremia Is this a current diagnosis for this admission?: YesPlan: Was hoping to switch the patient to oral antibiotics today, however, based on the sputum culture results I will continue cefepime for now. (2) Wheezing Is this a current diagnosis for this admission?: YesPlan: Patient may have a component of acute bronchitis and/or asthma. Alternatively, she may also have a component of aspiration. We will continue bronchodilators. I will try to avoid corticosteroids. (3) Elevated troponin Is this a current diagnosis for this admission?: YesPlan: Not significantly elevated. Echocardiogram has been ordered not continue to the troponin but due to the clinical exam. (4) HLD (hyperlipidemia) Qualifiers: Hyperlipidemia type: unspecified Qualified Code(s): E78.5 - Hyperlipidemia, unspecified Is this a current diagnosis for this admission?: Yes (5) HTN (hypertension) Qualifiers: Hypertension type: essential hypertension Qualified Code(s): I10 - Essential (primary) hypertension Is this a current diagnosis for this admission?: Yes (6) UTI (urinary tract infection) Qualifiers: Urinary tract infection type: site unspecified Is this a current diagnosis for this admission?: YesPlan: Continue cefepime. (7) Acute encephalopathy Is this a current diagnosis for this admission?: YesPlan: Resolved (8) Acute UTI Is this a current diagnosis for this admission?: Yes (9) Enterobacter cloacae pneumonia Is this a current diagnosis for this admission?: YesPlan: Fortunately, this precludes discharge. Will continue cefepime. Await culture and sensitivity results. Repeat chest x-ray performed on December 14, 2016. There was no evidence of acute infiltrate. Therefore, the diagnosis is possibly most consistent with tracheobronchitis.. - Time Time Spent with patient: 25-34 minutes - Inpatient Certification Medical Necessity: Need for IV Antibiotics, Risk of Complication if Not Cared For in Hospital
[2016-12-16] MEDS: INSULIN LISPRO 100 UNIT/ML 3 ML VIAL SUBCUT PRN ×3 (12:43→23:46)
[2016-12-16] MEDS: IPRATROPIUM/ALBUTEROL 0.5-2.5 MG/3 ML AMPUL NEB PRN (14:43)
[2016-12-16] MEDS: ACETAMINOPHEN 325 MG TABLET PO PRN (15:54)
[2016-12-16] MEDS: DONEPEZIL HCL 5 MG TABLET PO SCH (17:13)
[2016-12-16] MEDS: ESCITALOPRAM OXALATE 10 MG TABLET PO SCH (17:13)
[2016-12-16] MEDS ORDERED: POLYETHYLENE GLYCOL 3350 POWDER 17 GM/1 PACKET PO PRN (17:19)
[2016-12-16] MEDS ORDERED: POLYETHYLENE GLYCOL 3350 POWDER 17 GM/1 PACKET PO ONE (17:30)
--- NOTE | 2016-12-16 17:46 | XCELERA REPORT ---
[address] [address] Transthoracic Echocardiogram Report Name: SANDY DANG Age: 86 yrs Gender: Female : 1930 Patient Status: Inpatient Patient Location: [id number]\S\334\S\A Study Date: 12/16/2016 11:09 AM Height: 63 in Weight: 179 lb BSA: 1.8 m2 Reason For Study: dyspnea Ordering Physician: ALVIN PHILLIPS Performed By: Deirdre Ng Interpretation Summary AV showed calcified 3 cusps with mild , peak grad 23 mm Hg, with mild AR PHT 445 ms, no LV enlargement. Mod mitral annular calcification, with no MS, no MVP, some thickening of MV leaflets, mild MR with mod LA enlargment by M-Mode 49 mm, no LA clot. LV is abnormal showing asymmetric septal hypertrophy of the LV with subaortic hypertrophy and LVOT gradient 6 mm Hg. No segmental regional wall motion abnormality. LVEF 70-75% with stage I LV diastolic dysfunction. RH not enlarged, mod TR with RVSP 47 mm Hg. MMode/2D Measurements \T\ Calculations RVDd: 3.6 cm LVIDd: 5.2 cm FS: 51.1 % Ao root diam: 3.3 cm IVSd: 1.1 cm LVIDs: 2.6 cm EDV(Teich): 130.9 ml LVPWd: 1.0 cm ESV(Teich): 23.6 ml Ao root area: 8.3 cm2 EF(Teich): 82.0 % Doppler Measurements \T\ Calculations MV E max mathew: MV dec slope: Ao V2 max: AI max mathew: 88.5 cm/sec 237.6 cm/sec 429.6 cm/sec MV A max mathew: 345.9 cm/sec2 Ao max PG: AI max P.0 cm/sec MV dec time: 22.6 mmHg 73.8 mmHg MV E/A: 0.68 0.26 sec AI dec slope: 254.7 cm/sec2 AI P1/2t: 493.9 msec LV V1 max PG: PA V2 max: PI end-d mathew: TR max mathew: 6.4 mmHg 139.4 cm/sec 115.8 cm/sec 309.8 cm/sec LV V1 max: PA max P.8 mmHg TR max P.8 cm/sec 38.6 mmHg Left Ventricle The left ventricle is normal in size. There is moderate asymmetric left ventricular hypertrophy. Proximal septal thickening is noted. IVS 13, subaortic IVS 17mm. Post wall 11. The left ventricle is hyperdynamic. Doppler measurements suggest impaired left ventricular relaxation, which is associated with grade I/IV or mild diastolic dysfunction. No regional wall motion abnormalities noted. There is no thrombus. Right Ventricle The right ventricle is normal size. The right ventricular systolic function is normal. Atria The right atrium is normal in size. The left atrium is moderately dilated. The interatrial septum is intact with no evidence for an atrial septal defect. Mitral Valve There is moderate mitral annular calcification. The mitral valve leaflets are sclerotic and show some degree of functional abnormality. There is no evidence of mitral valve prolapse. There is no vegetation seen on the mitral valve. There is no mitral valve stenosis. There is a mild amount of mitral regurgitation. Aortic Valve The aortic valve is trileaflet. There is systolic doming of the aortic valve leaflets(s). The aortic valve is moderately calcified. There is no aortic valvular vegetation. There is moderate aortic stenosis. There is a peak gradient of 23 mm of Hg. There is a mild amount of aortic regurgitation. PHT 445ms. Tricuspid Valve The tricuspid valve is not well visualized, but is grossly normal. There is no tricuspid valve prolapse. There is no tricuspid stenosis. There is a moderate amount of tricuspid regurgitation. Right ventricular systolic pressure is estimated to be elevated at 40-50mmHg. Pulmonic Valve The pulmonic valve is not well seen, but is grossly normal. There is a mild amount of pulmonic regurgitation. Great Vessels The aortic root is normal size. Effusions There is no pericardial effusion. I WMSI = 1.00 % Normal = 100 Segments Size X - Cannot 2 - 4 - 1-2 small Interpret 1 - Normal Hypokinetic 3 - AkineticDyskinetic 3-5 moderate 5 - 6-14 large Aneurysmal 15-16 diffuse : ALVIN PHILLIPS > Regino Aguayo
[2016-12-16] MEDS: ASPIRIN 325 MG TABLET PO SCH (22:49)
[2016-12-17] MEDS: ALBUTEROL SULFATE 0.083% NEB 2.5 MG/3 ML AMPUL NEB SCH ×2 (07:45→13:55)
[2016-12-17] MEDS: LEVOTHYROXINE SODIUM 0.112 MG TABLET PO SCH (09:48)
[2016-12-17] MEDS: DOCUSATE SODIUM 100 MG CAPSULE PO SCH (09:48)
[2016-12-17] MEDS: CEFEPIME 2 GM/D5W RTU 50 ML IV SCH (09:49)
[2016-12-17] MEDS: LEVOTHYROXINE SODIUM 0.025 MG TABLET PO SCH (09:49)
[2016-12-17] MEDS: ENOXAPARIN SODIUM INJ 40 MG/0.4 ML DISP.SYRIN SUBCUT SCH (09:49)
[2016-12-17] MEDS: INSULIN LISPRO 100 UNIT/ML 3 ML VIAL SUBCUT PRN (11:58)
[2016-12-17 12:58] VITALS: BP 145/51
--- NOTE | 2016-12-17 14:03 | PDOC DISCHARGE SUMMARY ---
General - Admit/Disc Date/PCP Admission Date/Primary Care Provider: 12/12/16 04:31 CORAZON ARANGO PA-C Discharge Date: 12/17/16 - Discharge Diagnosis (1) Bacteremia Is this a current diagnosis for this admission?: Yes (2) Wheezing Is this a current diagnosis for this admission?: Yes (3) Elevated troponin Is this a current diagnosis for this admission?: Yes (4) HLD (hyperlipidemia) Is this a current diagnosis for this admission?: Yes (5) HTN (hypertension) Is this a current diagnosis for this admission?: Yes (6) UTI (urinary tract infection) Is this a current diagnosis for this admission?: Yes (7) Acute encephalopathy Is this a current diagnosis for this admission?: Yes (8) Acute UTI Is this a current diagnosis for this admission?: Yes (9) Enterobacter cloacae pneumonia Is this a current diagnosis for this admission?: Yes - Additional Information Resuscitation Status: Full Code Discharge Diet: Regular Discharge Activity: Activity As Tolerated Home Medications: Amlodipine Besylate [Norvasc 10 mg Tablet] 10 mg PO QHS 12/12/16 Anastrozole [Arimidex 1 mg Tablet] 1 mg PO DAILY 12/12/16 Ascorbic Acid [Vitamin C 500 mg Tablet] 500 mg PO BID 12/12/16 Aspirin [Aspirin 325 mg Tablet] 325 mg PO QHS 12/12/16 Atorvastatin Calcium [Lipitor 20 mg Tablet] 20 mg PO QHS 12/12/16 Calcium Carbonate/Vitamin D3 [Oyster Shell 500-Vit D3 200 Tb] 1 tab PO QPM 12/12 Donepezil HCl [Aricept] 10 mg PO QPM 12/12/16 Eplerenone [Inspra] 50 mg PO QAM 12/12/16 Escitalopram Oxalate [Lexapro] 20 mg PO QPM 12/12/16 Ferrous Sulfate [Feosol 325 mg Tablet] 325 mg PO BID 12/12/16 Glimepiride [Amaryl 1 mg Tablet] 1 mg PO BID 12/12/16 Levothyroxine Sodium [Synthroid] 137 mcg PO QAM 12/12/16 Losartan Potassium [Cozaar 50 mg Tablet] 50 mg PO QHS 12/12/16 Metformin HCl [Glucophage] 500 mg PO BID 12/12/16 Omeprazole 20 mg PO QHS 12/12/16 Ropinirole HCl [Requip 2 mg Tablet] 2 mg PO BID 12/12/16 Sitagliptin Phosphate [Januvia 50 mg Tablet] 50 mg PO BID 12/12/16 Sulfamethoxazole/Trimethoprim [Bactrim Ds Tablet] 2 each PO BID #28 tablet 12/17 History of Present Illness Patient complains of: SANDY DANG is a 86 year old female with underlying hyperlipidemia, hypertension, hypothyroidism, and restless leg syndrome, along with a history of sepsis secondary to urinary tract infections, who presents to the emergency room for evaluation of above complaints. Patient has been discussed with emergency room physician who evaluated the patient. Patient is oriented to location and year, but not sure why she is in the hospital and is able to provide no history whatsoever in terms of acute or chronic events, review of systems, personal habits, family history, etc. No friends or family are present. Old inpatient records are reviewed. Intermittent confused answers to basic questions. EMS reportedly called to patient's house earlier the morning of December 11 for an episode of hypotension, but transport was declined for unclear reasons. EMS stated on arrival to the patient's house for their second trip, she was effectively unresponsive, extremely ill in appearance. She became somewhat more responsive, at least opening her eyes spontaneously, after IV fluids were started. Initial clinical picture upon emergency room arrival remained quite concerning, consistent with sepsis of unknown origin. Per emergency room physician and nursing staff, she has improved considerably with treatment. reportedly stated patient has had similar appearances in the past with sepsis due to urinary tract infections. She currently denies pain. History of Present Illness: SANDY DANG is a 86 year old female Hospital Course Hospital Course: Patient is an 86-year-old female who presented to the hospital with encephalopathy due to a urinary tract infection. Her blood cultures were positive. Her urine and blood cultures grew E. coli. The patient was treated with cefepime to good effect. The patient was being prepared for discharge yesterday, however, she did have a fever at approximately 3 PM. In addition, her respiratory culture demonstrated Enterobacter cloaca PA. I elected to keep the patient overnight to watch her fever and to ensure that I have the sensitivities back to the Enterobacter species. The Enterobacter species was sensitive to Bactrim. The E. coli species was sensitive to Bactrim. I could not place the patient on a fluoroquinolone secondary to a drug interaction with donezepil. Patient evidence of mild tachypnea during this hospitalization.. Her chest x-ray showed mild cardiomegaly but no infiltrates. On admission her troponins were slightly elevated. I did elect to order an echocardiogram. This demonstrated grade 1 diastolic dysfunction, moderate aortic stenosis and an elevated RVSP. The patient recently had an evaluation by a linter operator in [place]. I do not think that any further evaluation is needed. The patient denied any trouble with shortness of breath. She may have had some mild bronchitis. She did receive nebulizer treatments in the hospital but they will not be continued on discharge. Upon discharge she did have a repeat blood culture. It is negative at this time but it has not yet been finalized. This was taken yesterday during her fever. Physical Exam Vital Signs: Temp Pulse Resp BP Pulse Ox 97.6 F 65 21 H 145/51 H 97 12/17/16 11:55 12/17/16 11:55 12/17/16 11:55 12/17/16 11:55 12/17/16 11:55 Intake & Output 12/16/16 12/17/16 12/18/16 06:59 06:59 06:59 Intake Total 1473 975 353 Output Total 200 200 Balance 1273 775 353 Weight 80.7 kg 80.6 kg 80.6 kg Additional comments: Patient is an extremely pleasant 86-year-old female. Her cognition is normal. She is noted to be mildly hearing impaired. She has a slight right facial weakness which is old. She has slight right sided upper extremity weakness. She has not been having any difficulty with ambulation. Her facial appearance is otherwise normal. Her neck is supple. She does not have any JVD. The patient's lungs show some scattered rhonchi particularly in the posterior lung acosta at the bases. Her cardiac exam demonstrates a regular rate and rhythm without murmurs, gallops or rubs. The abdomen is soft and flat. Bowel sounds are present in the lower quadrants. She does not have any guarding or rebound present and there are no hernias or masses present. The lower extremities are warm to touch without any edema. The skin is warm, dry, intact. Results Laboratory Results: 12/15/16 05:11 12/16/16 05:09 12/14/16 12/15/16 08:56 05:11 Troponin I 0.067 0.043 NT-Pro-B Natriuret Pep 2230 H 1640 H Impressions: Chest X-Ray 12/14/16 00:00 IMPRESSION: Mild cardiomegaly without evidence of acute cardiopulmonary disease. Plan Discharge Plan: . Follow-up with patient's primary care provider Corazon arango in 1 week. The patient will be discharged on a 7 day course of Bactrim. This will complete 10 days of therapy. The patient will need to follow-up for the final results of the blood culture obtained on 12/16/[address] alfaro office. The patient will be counseled to avoid the sun secondary to Bactrim. Time Spent: Greater than 30 Minutes
[2016-12-17] MEDS ORDERED: SULFAMETHOXAZOLE/TRIMETHOPRIM 800-160 MG TABLET PO SCH (18:00)
== END 2016-12-17 15:26 | disposition home or self-care (01) | DRG 871 ==
LOC: ER 21:00 → EH 12-12 03:38 → UNDOADMIN 12-12 03:38 → EH 12-12 04:31 → 3S 12-12 07:29
PROVIDERS: ADMIT Family Medicine; ATTEND Family Medicine
DX: A41.9 Sepsis, unspecified organism (principal); G93.40 Encephalopathy, unspecified; J15.6 Pneumonia due to other Gram-negative bacteria; N10 Acute pyelonephritis; R41.82 Altered mental status, unspecified; E78.5 Hyperlipidemia, unspecified; I10 Essential (primary) hypertension; E11.9 Type 2 diabetes mellitus without complications; B96.20 Unspecified Escherichia coli [E. coli] as the cause of diseases classified elsewhere; B96.89 Other specified bacterial agents as the cause of diseases classified elsewhere; J45.909 Unspecified asthma, uncomplicated; M19.90 Unspecified osteoarthritis, unspecified site; Z86.73 Personal history of transient ischemic attack (TIA), and cerebral infarction without residual deficits; Z79.82 Long term (current) use of aspirin; Z79.84 Long term (current) use of oral hypoglycemic drugs; Z79.4 Long term (current) use of insulin; Z79.899 Other long term (current) drug therapy
CPT/HCPCS: 36415; 71010; 71020; 80048; 80053; 81001; 82140; 82803; 82962; 83605; 83735; 83880; 84443; 84484; 85025; 87040; 87070; 87077; 87086; 87088; 87186; 87205; 93005; 93010; 93306; 94640; 94799; 96361; 96365; 96366; 96367; 99291; J0692; J1650; J1815; J3370; J3490; J7030; J7620

== ENCOUNTER 2017-01-07 13:12 | Emergency (ER) | payer MEDICARE, OTHER ==
--- NOTE | 2017-01-07 13:40 | ER Document Report ---
ED Medical Screen (RME) - General Chief Complaint: Abnormal Lab Results Stated Complaint: ABNORMAL RESULTS Time Seen by Provider: 01/07/17 13:38 Notes: states that patient was recently diagnosed with a urinary tract infection. Patient states she has been on several different antibiotics but tests continue to show infection. He states patient continues to be weak and dizzy and off balance. He states talked with the primary care physician today who recommended that the patient be sent to the emergency department. TRAVEL OUTSIDE OF THE [place] IN LAST 30 DAYS: No - Related Data Allergies/Adverse Reactions: diazepam [From Valium] Allergy (Verified 01/07/17 13:15) Past Medical History - Past Medical History Cardiac Medical History: Reports: Hx Hypercholesterolemia, Hx Hypertension Denies: Hx Coronary Artery Disease, Hx Heart Attack Pulmonary Medical History: Reports: Hx Pneumonia Denies: Hx Asthma, Hx Bronchitis, Hx COPD, Hx Tuberculosis Neurological Medical History: Reports: Hx Cerebrovascular Accident. 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
[2017-01-07 14:10] LABS: APPEARANCE,URINE SLIGHTLY-CLOUDY; BILIRUBIN,URINE NEGATIVE (NEGATIVE); CALCIUM OXALATE CRYSTALS,URINE FEW /HPF; GLUCOSE, URINE NEGATIVE (NEGATIVE); KETONES,URINE NEGATIVE (NEGATIVE); LEUKOCYTE ESTERASE,URINE NEGATIVE (NEGATIVE); NITRITE,URINE NEGATIVE (NEGATIVE); PROTEIN,URINE NEGATIVE (NEGATIVE); URINE SPECIFIC GRAVITY 1.019; UROBILINOGEN,URINE NEGATIVE mg/dL (<2.0)
[2017-01-07 14:17] LABS: ABSOLUTE LYMPHOCYTES (AUTO) 1.9 10^3/uL (0.5-4.7); ABSOLUTE MONOCYTES (AUTO) 0.7 10^3/uL (0.1-1.4); ABSOLUTE NEUT (AUTO) 2.4 10^3/uL (1.7-8.2); BASOPHILS % (AUTO) 0.4 % (0-2); EOSINOPHILS % (AUTO) 0.4 % (0-6); HEMATOCRIT 39.3 % (36.0-47.0); HEMOGLOBIN 13.4 g/dL (12.0-15.5); HGB HCT DIFFERENCE 0.9; MEAN CORPUSCULAR HEMOGLOBIN 31.7 pg (27.0-33.4); MEAN CORPUSCULAR HGB CONC 34.2 g/dL (32.0-36.0); MEAN CORPUSCULAR VOLUME 93 fl (80-97); MONOCYTES % (AUTO) 13.4 % (3-13); RED BLOOD COUNT 4.24 10^6/uL (3.72-5.28); RED CELL DISTRIBUTION WIDTH 15.1 % (11.5-14.0); SEGMENTED NEUTROPHILS % (AUTO) 48.8 % (42-78)
[2017-01-07 14:32] LABS: ALANINE AMINOTRANSFERASE 37 U/L (9-52); ALBUMIN 4.5 g/dL (3.5-5.0); ALKALINE PHOSPHATASE 116 U/L (38-126); ANION GAP 14 (5-19); ASPARTATE AMINO TRANSFERASE 33 U/L (14-36); BILIRUBIN,DIRECT 0.5 mg/dL (0.0-0.4); BILIRUBIN,TOTAL 0.6 mg/dL (0.2-1.3); BLOOD UREA NITROGEN 49 mg/dL (7-20); CALCIUM 10.9 mg/dL (8.4-10.2); CARBON DIOXIDE 21 mmol/L (22-30); CHLORIDE 101 mmol/L (98-107); CREATININE RESULT 1.32 mg/dL (0.52-1.25); GLUCOSE 124 mg/dL (75-110); POTASSIUM 5.2 mmol/L (3.6-5.0); SODIUM 136.3 mmol/L (137-145); TOTAL PROTEIN 7.3 g/dL (6.3-8.2)
[2017-01-07] MEDS ORDERED: NORMAL SALINE 1000 ML 1,000 ML IV PRN (14:46)
[2017-01-07] MEDS ORDERED: ONDANSETRON HCL INJ/PF 4 MG/2 ML SDV IV ONE (14:54)
--- NOTE | 2017-01-07 14:54 | ER Document Report ---
ED General - General Chief Complaint: Abnormal Lab Results Stated Complaint: ABNORMAL RESULTS Time Seen by Provider: 01/07/17 13:38 Mode of Arrival: Ambulatory Information source: Patient TRAVEL OUTSIDE OF THE [place] IN LAST 30 DAYS: No - HPI Patient complains to provider of: Generalized weakness Onset: This morning Quality of pain: No pain Associated symptoms: Productive cough, Nausea, Vomiting, Weakness Similar symptoms previously: Yes Recently seen / treated by doctor: Yes Notes: Patient is an 86-year-old female who presents to the emergency room for complaints of generalized weakness, when I asked her why she came to the emergency room she stated "because I feel lousy", however she was unable to provide me with any specific details as to what was bothering her, she does report one episode of vomiting upon awakening this morning but has been tolerating p.o. intake since, she denies a fever, she reports a cough that is productive of clear phlegm, patient denies any abdominal pain, she denies any dysuria or hematuria, she denies urinary frequency, her does report that she was recently treated for a urinary tract infection but he does not believe that the medication is working because she continues to have generalized weakness - Related Data Allergies/Adverse Reactions: diazepam [From Valium] Allergy (Verified 01/07/17 13:15) Past Medical History - General Information source: Patient - Social History Smoking Status: Never Smoker Family History: Reviewed & Not Pertinent Patient has suicidal ideation: No Patient has homicidal ideation: No - Past Medical History Cardiac Medical History: Reports: Hx Hypercholesterolemia, Hx Hypertension Denies: Hx Coronary Artery Disease, Hx Heart Attack Pulmonary Medical History: Reports: Hx Pneumonia Denies: Hx Asthma, Hx Bronchitis, Hx COPD, Hx Tuberculosis Neurological Medical History: Reports: Hx Cerebrovascular Accident. 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 Past Surgical History: Reports: Hx Appendectomy, Hx Breast Surgery - R breast, Hx Cholecystectomy, Hx Mastectomy - right - Immunizations Hx Diphtheria, Pertussis, Tetanus Vaccination: No Hx Pneumococcal Vaccination: 06/14/12 Review of Systems - Review of Systems Constitutional: See HPI EENT: No symptoms reported Cardiovascular: No symptoms reported Respiratory: No symptoms reported Gastrointestinal: See HPI Genitourinary: No symptoms reported Female Genitourinary: No symptoms reported Musculoskeletal: No symptoms reported Skin: No symptoms reported Hematologic/Lymphatic: No symptoms reported Neurological/Psychological: No symptoms reported -: Yes All other systems reviewed and negative Physical Exam - Vital signs Vitals: Pulse Resp BP Pulse Ox 87 20 105/49 L 95 01/07/17 13:25 01/07/17 13:25 01/07/17 13:25 01/07/17 13:25 Interpretation: Normal - General General appearance: Appears well, Alert - HEENT Head: Normocephalic, Atraumatic Eyes: Normal Pupils: PERRL - Respiratory Respiratory status: No respiratory distress Chest status: Nontender Breath sounds: Normal Chest palpation: Normal - Cardiovascular Rhythm: Regular Heart sounds: Normal auscultation Murmur: No - Abdominal Inspection: Normal Distension: No distension Bowel sounds: Normal Tenderness: Nontender Organomegaly: No organomegaly - Back Back: Normal, Nontender - Extremities General upper extremity: Normal inspection, Nontender, Normal color, Normal ROM , Normal temperature General lower extremity: Normal inspection, Nontender, Normal color, Normal ROM , Normal temperature, Normal weight bearing. No: Desmond's sign - Neurological Neuro grossly intact: Yes Cognition: Normal Orientation: AAOx4 Fide Coma Scale Eye Opening: Spontaneous [place] Coma Scale Verbal: Oriented [place] Coma Scale Motor: Obeys Commands Fide Coma Scale Total: 15 Speech: Normal Motor strength normal: LUE, RUE, LLE, RLE Sensory: Normal - Psychological Associated symptoms: Normal affect, Normal mood - Skin Skin Temperature: Warm Skin Moisture: Dry Skin Color: Normal Course - Re-evaluation Re-evalutation: 01/07/17 17:24 Patient was able to ambulate with assistance in the department, she does report feeling better after receiving IV fluids, labs are consistent with dehydration, she was advised to drink plenty of fluids at home, follow-up with her primary care provider or return if symptoms worsen, patient and at bedside acknowledge understanding and agreement with this plan - Vital Signs Vital signs: Temp Pulse Resp BP Pulse Ox 97.2 F 65 17 105/82 100 01/07/17 17:36 01/07/17 17:36 01/07/17 17:36 01/07/17 17:36 01/07/17 17:36 - Laboratory Result Diagrams: 01/07/17 13:15 01/07/17 13:15 Laboratory results interpreted by me: 01/07/17 01/07/17 01/07/17 13:15 13:15 13:15 RDW 15.1 H Monocytes % 13.4 H Sodium 136.3 L Potassium 5.2 H Carbon Dioxide 21 L BUN 49 H Creatinine 1.32 H Est GFR ( Amer) 46 L Est GFR (Non-Af Amer) 38 L Glucose 124 H Calcium 10.9 H Direct Bilirubin 0.5 H Urine Ascorbic Acid 40 H Discharge - Discharge Clinical Impression: Weakness, Dehydration Condition: Stable Disposition: HOME, SELF-CARE Instructions: Dehydration ([facility]), Weakness ([facility]) Additional Instructions: Follow up with your primary care provider in one to 2 days. Return to the emergency room immediately if symptoms worsen or any additional concerns. Referrals: CORAZON CARRION PA-C [Primary Care Provider] - Follow up as needed
[2017-01-07 17:37] VITALS: BP 105/82
== END 2017-01-07 17:37 | disposition home or self-care (01) ==
LOC: ER 13:12
DX: E86.0 Dehydration (principal); R53.1 Weakness; R05 Cough; R11.2 Nausea with vomiting, unspecified; I10 Essential (primary) hypertension; E11.9 Type 2 diabetes mellitus without complications; Z87.440 Personal history of urinary (tract) infections; Z88.8 Allergy status to other drugs, medicaments and biological substances; Z87.01 Personal history of pneumonia (recurrent)
CPT/HCPCS: 99284; 96361; 96374; 36415; 87086; 85025; 87088; 80053; 81001; 87186; J2405; J7030

== ENCOUNTER 2017-03-07 18:19 | Emergency (ER) | payer MEDICARE, OTHER ==
--- NOTE | 2017-03-07 18:39 | ER Document Report ---
ED Medical Screen (RME) - General Chief Complaint: Leg Swelling Stated Complaint: LEG PAIN, SWELLING Time Seen by Provider: 03/07/17 18:37 Mode of Arrival: Wheelchair Information source: Patient, Relative Notes: 87-year-old female presents with concerns of bilateral lower extremity swelling. Patient notes symptoms have been ongoing for 1 week right worse than left I have greeted and performed a rapid initial assessment of this patient. A comprehensive ED assessment and evaluation of the patient, analysis of test results and completion of the medical decision making process will be conducted by additional ED providers. PHYSICAL EXAMINATION: GENERAL: Well-appearing, well-nourished and in no acute distress. HEAD: Atraumatic, normocephalic. EYES: Pupils equal round extraocular movements intact, conjunctiva are normal. ENT: Nares patent NECK: Normal range of motion LUNGS: No respiratory distress Musculoskeletal: Normal range of motion NEUROLOGICAL: Normal speech, normal gait. PSYCH: Normal mood, normal affect. SKIN: right leg edema erythema TRAVEL OUTSIDE OF THE [place] IN LAST 30 DAYS: No - Related Data Allergies/Adverse Reactions: diazepam [From Valium] Allergy (Verified 03/07/17 18:24) Past Medical History - Past Medical History Cardiac Medical History: Reports: Hx Hypercholesterolemia, Hx Hypertension Denies: Hx Coronary Artery Disease, Hx Heart Attack Pulmonary Medical History: Reports: Hx Pneumonia Denies: Hx Asthma, Hx Bronchitis, Hx COPD, Hx Tuberculosis Neurological Medical History: Reports: Hx Cerebrovascular Accident. 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
[2017-03-07 19:15] LABS: ABSOLUTE EOSINOPHILS # (AUTO) 0.1 10^3/uL (0.0-0.6); ABSOLUTE LYMPHOCYTES (AUTO) 1.4 10^3/uL (0.5-4.7); ABSOLUTE MONOCYTES (AUTO) 0.7 10^3/uL (0.1-1.4); ABSOLUTE NEUT (AUTO) 2.6 10^3/uL (1.7-8.2); BASOPHILS % (AUTO) 0.9 % (0-2); EOSINOPHILS % (AUTO) 2.3 % (0-6); HEMATOCRIT 31.5 % (36.0-47.0); HEMOGLOBIN 10.4 g/dL (12.0-15.5); HGB HCT DIFFERENCE -0.3; LYMPHOCYTES % (AUTO) 28.8 % (13-45); MEAN CORPUSCULAR HEMOGLOBIN 29.8 pg (27.0-33.4); MEAN CORPUSCULAR HGB CONC 33.1 g/dL (32.0-36.0); MEAN CORPUSCULAR VOLUME 90 fl (80-97); RED CELL DISTRIBUTION WIDTH 15.3 % (11.5-14.0); WHITE BLOOD COUNT 4.8 10^3/uL (4.0-10.5)
[2017-03-07 19:26] LABS: ALANINE AMINOTRANSFERASE 27 U/L (9-52); ALBUMIN 3.4 g/dL (3.5-5.0); ALKALINE PHOSPHATASE 133 U/L (38-126); ANION GAP 11 (5-19); ASPARTATE AMINO TRANSFERASE 28 U/L (14-36); BILIRUBIN,DIRECT 0.2 mg/dL (0.0-0.4); BILIRUBIN,TOTAL 0.3 mg/dL (0.2-1.3); BLOOD UREA NITROGEN 10 mg/dL (7-20); CALCIUM 8.9 mg/dL (8.4-10.2); CARBON DIOXIDE 34 mmol/L (22-30); CHLORIDE 99 mmol/L (98-107); CREATINE KINASE 127 U/L (30-135); CREATININE RESULT 0.61 mg/dL (0.52-1.25); GLUCOSE 157 mg/dL (75-110); SODIUM 143.9 mmol/L (137-145); TOTAL PROTEIN 5.3 g/dL (6.3-8.2)
[2017-03-07 19:28] LABS: POTASSIUM 2.9 mmol/L (3.6-5.0)
[2017-03-07 19:38] LABS: CREATINE KINASE MB 1.63 ng/mL (<4.55)
[2017-03-07 19:40] LABS: TROPONIN I < 0.012 ng/mL
[2017-03-07] MEDS ORDERED: POTASSIUM CHLORIDE 10 MEQ TABLET.SA PO ONE (19:50)
--- NOTE | 2017-03-07 19:56 | EKG REPORT ---
SEVERITY:- ABNORMAL ECG - SINUS RHYTHM VENTRICULAR PREMATURE COMPLEX INCOMPLETE RIGHT BUNDLE BRANCH BLOCK CONSIDER ANTERIOR INFARCT : Confirmed by: Regino Aguayo MD 07-Mar-2017 19:55:51
--- NOTE | 2017-03-07 20:02 | ER Document Report ---
ED General - General Chief Complaint: Leg Swelling Stated Complaint: LEG PAIN, SWELLING Time Seen by Provider: 03/07/17 18:37 Mode of Arrival: Wheelchair Information source: Patient TRAVEL OUTSIDE OF THE [place] IN LAST 30 DAYS: No - HPI Notes: Patient is a 87-year-old female history of recently being seen for dehydration a month and a half ago and was cut back on her diuretic presents with report of lower extremity swelling right greater than left with some redness to the right leg. She denies any pain to the leg or injury. She reports no chest pain or difficulty breathing or fever or chills or nausea or vomiting. No insect bites. - Related Data Allergies/Adverse Reactions: diazepam [From Valium] Allergy (Verified 03/07/17 18:24) Past Medical History - General Information source: Patient, Relative - Social History Smoking Status: Never Smoker Chew tobacco use (# tins/day): No Frequency of alcohol use: None Drug Abuse: None Family History: Reviewed & Not Pertinent - Past Medical History Cardiac Medical History: Reports: Hx Hypercholesterolemia, Hx Hypertension Denies: Hx Coronary Artery Disease, Hx Heart Attack Pulmonary Medical History: Reports: Hx Pneumonia Denies: Hx Asthma, Hx Bronchitis, Hx COPD, Hx Tuberculosis Neurological Medical History: Reports: Hx Cerebrovascular Accident. 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 Denies recent illness. EENT: Denies eye, ear, throat, or mouth pain or symptoms. Denies nasal or sinus congestion or discharge. Denies throat, tongue, or mouth swelling or difficulty swallowing. CARDIOVASCULAR: Denies chest pain. Denies palpitations or racing or irregular heart beat. Reports increasing lower extremity swelling. RESPIRATORY: Denies cough, cold, or chest congestion. Denies shortness of breath, difficulty breathing, or wheezing. GASTROINTESTINAL: Denies abdominal pain or distention. Denies nausea, vomiting , or diarrhea. Denies blood in vomitus, stools, or per rectum. Denies black, tarry stools. Denies constipation. GENITOURINARY: Denies difficulty urinating, painful urination, burning, frequency, blood in urine, or discharge. FEMALE GENITOURINARY: Denies vaginal bleeding, heavy or abnormal periods, irregular periods. Denies vaginal discharge or odor. MUSCULOSKELETAL: Denies back or neck pain or stiffness. Denies joint pain or swelling. SKIN: Denies rash, lesions or sores. HEMATOLOGIC : Denies easy bruising or bleeding. LYMPHATIC: Denies swollen, enlarged glands. NEUROLOGICAL: Denies confusion or altered mental status. Denies passing out or loss of consciousness. Denies dizziness or lightheadedness. Denies headache. Denies weakness or paralysis or loss of use of either side. Denies problems with gait or speech. Denies sensory loss, numbness, or tingling. Denies seizures. PSYCHIATRIC: Denies anxiety or stress. Denies depression, suicidal ideation, or homicidal ideation. ALL OTHER SYSTEMS REVIEWED AND NEGATIVE. Dictation was performed using [employer] voice recognition software Physical Exam - Vital signs Vitals: Temp Pulse Resp BP Pulse Ox 97.3 F 71 20 132/58 H 97 03/07/17 18:24 03/07/17 18:24 03/07/17 18:24 03/07/17 18:24 03/07/17 18:24 - Notes Notes: PHYSICAL EXAMINATION: GENERAL: Well-appearing, well-nourished and in no acute distress. HEAD: Atraumatic, normocephalic. EYES: Pupils equal round and reactive to light, extraocular movements intact, conjunctiva are normal. ENT: Nares patent, oropharynx clear without exudates. Moist mucous membranes. NECK: Normal range of motion, supple without lymphadenopathy LUNGS: Breath sounds clear to auscultation bilaterally and equal. No wheezes rales or rhonchi. HEART: Regular rate and rhythm without murmurs ABDOMEN: Soft, nontender, nondistended abdomen. No guarding, no rebound. No masses appreciated. Female : deferred Musculoskeletal: Normal range of motion. No cyanosis. Patient has 1+ edema left lower extremity and 2+ edema right lower extremity. Negative Homans. No palpable cord. No proximal erythema or adenopathy. Patient does have some mild erythema and cellulitis to the right lower extremity. Distally, patient is neurovascularly intact. NEUROLOGICAL: Cranial nerves grossly intact. Normal speech, normal gait. Normal sensory, motor exams PSYCH: Normal mood, normal affect. SKIN: Warm, Dry, normal turgor, no rashes or lesions noted. Course - Re-evaluation Re-evalutation: 03/07/17 20:02 Renal insufficiency was corrected from a month and a half ago on repeat lab testing done today. No evidence for diabetic complication. 03/07/17 20:02 Potassium replaced by mouth. No evidence for congestive heart failure or significant renal insufficiency or DVT or abscess or neurovascular compromise. Patient has adequate distal pulses. No evidence for significant skin breakdown. 03/07/17 20:49 - Vital Signs Vital signs: Temp Pulse Resp BP Pulse Ox 97.3 F 71 20 132/58 H 97 03/07/17 18:24 03/07/17 18:24 03/07/17 18:24 03/07/17 18:24 03/07/17 18:24 - Laboratory Result Diagrams: 03/07/17 19:00 03/07/17 19:00 Laboratory results interpreted by me: 03/07/17 03/07/17 19:00 19:00 RBC 3.50 L Hgb 10.4 L Hct 31.5 L RDW 15.3 H Plt Count 481 H Monocytes % 14.0 H Potassium 2.9 L* Carbon Dioxide 34 H Glucose 157 H Alkaline Phosphatase 133 H Total Protein 5.3 L Albumin 3.4 L - EKG Interpretation by Tn EKG shows normal: Sinus rhythm Additional EKG results interpreted by me: 03/07/17 20:03 EKG as interpreted by vt showed normal sinus rhythm heart rate of 65 there is a incomplete right bundle branch block which is unchanged from previous. There are no acute ST or T segment changes noted. There is 1 PVC appreciated. There is no change from previous EKG reviewed from 12/14/16. Discharge - Discharge Clinical Impression: Hypokalemia Edema Qualifiers: Edema type: unspecified Qualified Code(s): R60.9 - Edema, unspecified Cellulitis Qualifiers: Site of cellulitis: extremity Site of cellulitis of extremity: lower extremity Laterality: right Qualified Code(s): L03.115 - Cellulitis of right lower limb Condition: Stable Disposition: HOME, SELF-CARE Instructions: Cellulitis ([facility]), Dependent Edema ([facility]) Additional Instructions: Elevate your legs for swelling. Consider using support hose on the legs for continued swelling. Return to the emergency department case of fever, severe pain or redness. Start taking your potassium supplement tomorrow. Prescriptions: Cephalexin Monohydrate [Keflex 500 mg Capsule] 500 mg PO TID 10 Days capsule Referrals: CORAZON CARRION PA-C [Primary Care Provider] - Follow up as needed
--- NOTE | 2017-03-07 20:32 | RADIOLOGY REPORT (SQ) ---
EXAM DESCRIPTION: CHEST PA/LAT COMPLETED DATE/TIME: 03/07/2017 8:11 pm REASON FOR STUDY: bilateral lower extremity edema COMPARISON: 12/14/2016, 11/29/2012 NUMBER OF VIEWS: Two view. TECHNIQUE: Frontal and lateral radiographic views of the chest acquired. LIMITATIONS: None. FINDINGS: LUNGS AND PLEURA: No opacities, masses or pneumothorax. No pleural effusion. MEDIASTINUM AND HILAR STRUCTURES: No masses. No contour abnormalities. Elevated right hemidiaphragm . HEART AND VASCULAR STRUCTURES: Heart enlarged without failure. Aorta normal for age. BONES: No acute findings. HARDWARE: None in the chest. OTHER: No other significant finding. IMPRESSION: CARDIAC ENLARGEMENT WITHOUT FAILURE. TECHNICAL DOCUMENTATION: JOB ID: [id number] [employer]- All Rights Reserved
[2017-03-07] MEDS ORDERED: CEPHALEXIN 500 MG CAPSULE PO ONE (20:44)
[2017-03-07 21:13] VITALS: BP 155/88
--- NOTE | 2017-03-08 07:20 | XCELERA REPORT ---
[address] [address] Lower Extremity Venous Evaluation Name: SANDY DANG Age: 87 yrs Gender: Female : 1930 Patient Status: Emergency Patient Location: ER Study Date: 03/07/2017 08:07 PM Procedure: Color flow and duplex imaging of the veins of the right lower extremity as well as the left Common Femoral vein. Reason For Study: RLE edema Ordering Physician: TOM FAITH Performed By: Mercedez Thompson Right Sided Venous Evaluation Normal vessel filling wall to wall, compression and augmentation as well as Colour flow down to the infrageniculate veins. Mild subcutaneous edema is noted in the leg. Left Sided Venous Evaluation The left common femoral vein is fully compressible. Spontaneous and phasic flow is present in the left common femoral vein. Interpretation Summary No duplex evidence of DVT or obstruction in the right lower extremity nor in the left Common Femoral vein. : TOM FAITH > Elijah Garcia
== END 2017-03-07 21:21 | disposition home or self-care (01) ==
LOC: ER 18:19
DX: E87.6 Hypokalemia (principal); R60.9 Edema, unspecified; L03.115 Cellulitis of right lower limb; M79.89 Other specified soft tissue disorders; E78.00 Pure hypercholesterolemia, unspecified; I10 Essential (primary) hypertension; E11.9 Type 2 diabetes mellitus without complications; E88.09 Other disorders of plasma-protein metabolism, not elsewhere classified; Z90.49 Acquired absence of other specified parts of digestive tract; Z90.11 Acquired absence of right breast and nipple
CPT/HCPCS: 93005; 99284; 36415; 82553; 82550; 85025; 80053; 84484; 83880; 93971 ×2; 71020; 93010; A9270 ×2

== ENCOUNTER 2017-03-13 00:19 | Emergency (ER) | payer MEDICARE, OTHER ==
--- NOTE | 2017-03-13 01:12 | ER Document Report ---
ED General - General TRAVEL OUTSIDE OF THE [place] IN LAST 30 DAYS: No <PASQUALE MASON - Last Filed: 03/13/17 05:51> <GABRIELA TOWNSEND - Last Filed: 03/13/17 05:54> - General Chief Complaint: Leg Pain Stated Complaint: RIGHT LEG PAIN Time Seen by Provider: 03/13/17 00:31 - Related Data Allergies/Adverse Reactions: diazepam [From Valium] Allergy (Verified 03/07/17 18:24) Past Medical History - Social History Smoking Status: Unknown if Ever Smoked Family History: Reviewed & Not Pertinent - Past Medical History Cardiac Medical History: Reports: Hx Hypercholesterolemia, Hx Hypertension Denies: Hx Coronary Artery Disease, Hx Heart Attack Pulmonary Medical History: Reports: Hx Pneumonia Denies: Hx Asthma, Hx Bronchitis, Hx COPD, Hx Tuberculosis Neurological Medical History: Reports: Hx Cerebrovascular Accident. 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 Past Surgical History: Reports: Hx Appendectomy, Hx Breast Surgery - R breast, Hx Cholecystectomy, Hx Mastectomy - right - Immunizations Hx Diphtheria, Pertussis, Tetanus Vaccination: No Hx Pneumococcal Vaccination: 06/14/12 <PASQUALE MASON - Last Filed: 03/13/17 05:51> - Vital signs Vitals: Temp Pulse Resp BP Pulse Ox 98.2 F 73 16 149/58 H 100 03/13/17 00:38 03/13/17 00:38 03/13/17 00:38 03/13/17 00:38 03/13/17 00:38 Course - Laboratory Result Diagrams: 03/13/17 01:35 03/13/17 01:35 <PASQUALE MASON - Last Filed: 03/13/17 05:51> - Laboratory Result Diagrams: 03/13/17 01:35 03/13/17 01:35 <GABRIELA TOWNSEND - Last Filed: 03/13/17 05:54> - Re-evaluation Re-evalutation: 03/13/17 1:35 (PASQUALE MASON) 03/13/17 01:30 Pt seen and evaluated with PA. Patient presents with fatigue. Labs, urine, chest x-ray are all unremarkable. is at bedside is the primary caregiver. He said that she is back to baseline and she has no complaints at this time. Patient has oxygen at home and told to wear it. Offered admission, but would like to take patient home. No emergent condition identified at this time. (GABRIELA TOWNSEND) - Vital Signs Vital signs: Temp Pulse Resp BP Pulse Ox 98.4 F 69 22 H 139/59 H 94 03/13/17 03:55 03/13/17 03:55 03/13/17 03:55 03/13/17 03:55 03/13/17 03:55 - Laboratory Laboratory results interpreted by me: 03/13/17 03/13/17 03/13/17 01:35 01:35 03:10 RBC 3.15 L Hgb 9.5 L Hct 28.0 L RDW 15.6 H Monocytes % 15.0 H Potassium 3.4 L Carbon Dioxide 35 H AST 40 H Total Protein 5.7 L Albumin 3.3 L Urine Protein 100 H Urine Ascorbic Acid 40 H Discharge <PASQUALE MASON - Last Filed: 03/13/17 05:51> <GABRIELA TOWNSEND - Last Filed: 03/13/17 05:54> - Discharge Clinical Impression: Cellulitis Qualifiers: Site of cellulitis: extremity Site of cellulitis of extremity: lower extremity Laterality: right Qualified Code(s): L03.115 - Cellulitis of right lower limb Edema Qualifiers: Edema type: unspecified Qualified Code(s): R60.9 - Edema, unspecified COPD (chronic obstructive pulmonary disease) Qualifiers: COPD type: unspecified COPD Qualified Code(s): J44.9 - Chronic obstructive pulmonary disease, unspecified Instructions: Cellulitis ([facility]) Additional Instructions: Continue to wear oxygen as prescribed at home. Please take your antibiotic as prescribed. Please follow-up with your primary care provider as scheduled on Wednesday. Please return to the emergency department with any worsening shortness of breath, altered mental status, confusion, fever, chills.
[2017-03-13 01:57] LABS: ABSOLUTE BASOPHILS # (AUTO) 0.1 10^3/uL (0.0-0.2); ABSOLUTE EOSINOPHILS # (AUTO) 0.1 10^3/uL (0.0-0.6); ABSOLUTE LYMPHOCYTES (AUTO) 0.9 10^3/uL (0.5-4.7); ABSOLUTE MONOCYTES (AUTO) 0.7 10^3/uL (0.1-1.4); ABSOLUTE NEUT (AUTO) 2.9 10^3/uL (1.7-8.2); BASOPHILS % (AUTO) 1.4 % (0-2); EOSINOPHILS % (AUTO) 2.3 % (0-6); HEMOGLOBIN 9.5 g/dL (12.0-15.5); HGB HCT DIFFERENCE 0.5; LYMPHOCYTES % (AUTO) 19.9 % (13-45); MEAN CORPUSCULAR HGB CONC 33.8 g/dL (32.0-36.0); MEAN CORPUSCULAR VOLUME 89 fl (80-97); RED BLOOD COUNT 3.15 10^6/uL (3.72-5.28); RED CELL DISTRIBUTION WIDTH 15.6 % (11.5-14.0); SEGMENTED NEUTROPHILS % (AUTO) 61.4 % (42-78); WHITE BLOOD COUNT 4.8 10^3/uL (4.0-10.5)
[2017-03-13 02:13] LABS: ALANINE AMINOTRANSFERASE 32 U/L (9-52); ALBUMIN 3.3 g/dL (3.5-5.0); ALKALINE PHOSPHATASE 114 U/L (38-126); ANION GAP 6 (5-19); ASPARTATE AMINO TRANSFERASE 40 U/L (14-36); BILIRUBIN,DIRECT 0.3 mg/dL (0.0-0.4); BILIRUBIN,TOTAL 0.4 mg/dL (0.2-1.3); BLOOD UREA NITROGEN 13 mg/dL (7-20); CARBON DIOXIDE 35 mmol/L (22-30); CHLORIDE 102 mmol/L (98-107); CREATININE RESULT 0.61 mg/dL (0.52-1.25); GLUCOSE 103 mg/dL (75-110); MAGNESIUM 1.7 mg/dL (1.6-2.3); POTASSIUM 3.4 mmol/L (3.6-5.0); SODIUM 142.5 mmol/L (137-145); TOTAL PROTEIN 5.7 g/dL (6.3-8.2)
--- NOTE | 2017-03-13 02:30 | RADIOLOGY REPORT (SQ) ---
EXAM DESCRIPTION: CT HEAD WITHOUT COMPLETED DATE/TIME: 03/13/2017 2:18 am REASON FOR STUDY: lethargic COMPARISON: 01/07/2014 TECHNIQUE: Axial images acquired through the brain without intravenous contrast. Images reviewed wi th bone, brain and subdural windows. Images stored on PACS. All CT scanners at this facility use dose modulation, iterative reconstruction, and/or weight based d osing when appropriate to reduce radiation dose to as low as reasonably achievable (ALARA). [facility]: Dose Right [facility]: CareDose [facility]: Dose Right [facility]: Teradose 4D [facility]: Smart [employer] RADIATION DOSE: Up-to-date CT equipment and radiation dose reduction techniques were employed. CTDIv ol: 64.6 mGy. DLP: 1163 mGy-cm. mGy. LIMITATIONS: Mild to moderate motion artifact FINDINGS: VENTRICLES: Normal size and contour. CEREBRUM: No masses. No hemorrhage. No midline shift. No evidence for acute infarction. Moderate c erebral volume loss, moderate confluent white matter microangiopathy pattern, multiple lacunar infarc ts of bilateral basal ganglia including the right external capsule and bilateral parietal white matte r, chronic. CEREBELLUM: No masses. No hemorrhage. No alteration of density. No evidence for acute infarction. EXTRAAXIAL SPACES: No fluid collections. No masses. Atherosclerosis. ORBITS AND GLOBE: No intra- or extraconal masses. Normal contour of globe without masses. CALVARIUM: No fracture. PARANASAL SINUSES: No fluid or mucosal thickening. SOFT TISSUES: No mass or hematoma. OTHER: No other significant finding. IMPRESSION: No acute findings. Limitation. EVIDENCE OF ACUTE STROKE: NO. COMMENT: Quality ID # [id number]: Final reports with documentation of one or more dose reduction techniques (e.g., Automated exposure control, adjustment of the mA and/or kV according to patient size, use of iterative reconstruction technique) TECHNICAL DOCUMENTATION: JOB ID: [id number] [employer]- All Rights Reserved
--- NOTE | 2017-03-13 03:18 | RADIOLOGY REPORT (SQ) ---
CORRECTED REPORT EXAM DESCRIPTION: CHEST SINGLE VIEW COMPLETED DATE/TIME: 03/13/2017 2:18 am REASON FOR STUDY: lethargic COMPARISON: 03/07/2017. CT, 11/14/2013. EXAM PARAMETERS: NUMBER OF VIEWS: One view TECHNIQUE: Digital Frontal radiographic view of the chest acquired. RADIATION DOSE: NA LIMITATIONS: none FINDINGS: LUNGS AND PLEURA: Moderate interstitial markings. MEDIASTINUM AND HILAR STRUCTURES: Mild bi hilar fullness. HEART AND VASCULAR STRUCTURES: Prominent cardiac silhouette. Atherosclerosis. BONES: No acute findings. HARDWARE: Surgical clips of the right axilla. OTHER: No other significant finding. IMPRESSION: No significant interval change. TECHNICAL DOCUMENTATION: JOB ID: [id number] [employer]- All Rights Reserved <Electronically signed by THIERRY LUND MD in [place]> 03/13/17 0318 MTDD
[2017-03-13 03:29] LABS: APPEARANCE,URINE SLIGHTLY-CLOUDY; BILIRUBIN,URINE NEGATIVE (NEGATIVE); GLUCOSE, URINE NEGATIVE (NEGATIVE); KETONES,URINE NEGATIVE (NEGATIVE); LEUKOCYTE ESTERASE,URINE NEGATIVE (NEGATIVE); NITRITE,URINE NEGATIVE (NEGATIVE); PROTEIN,URINE 100 mg/dL (NEGATIVE); URINE SPECIFIC GRAVITY 1.013; UROBILINOGEN,URINE NEGATIVE mg/dL (<2.0)
[2017-03-13 03:59] VITALS: BP 139/59
--- NOTE | 2017-03-13 09:51 | EKG REPORT ---
SEVERITY:- ABNORMAL ECG - SINUS RHYTHM INCOMPLETE RIGHT BUNDLE BRANCH BLOCK LEFT VENTRICULAR HYPERTROPHY : Confirmed by: Roel Cordero 13-Mar-2017 09:49:57
== END 2017-03-13 05:30 | disposition home or self-care (01) ==
LOC: ER 00:19
DX: L03.115 Cellulitis of right lower limb (principal); J44.9 Chronic obstructive pulmonary disease, unspecified; R60.9 Edema, unspecified; M79.604 Pain in right leg
CPT/HCPCS: 36415; 70450; 71010; 71020; 80053; 81001; 83735; 85025; 87086; 87088; 87186; 93005; 93010; 99284

== ENCOUNTER → 2017-03-15 | Outpatient (CLI) | payer MEDICARE, OTHER ==
--- NOTE | 2017-03-15 15:51 | RADIOLOGY REPORT (SQ) ---
EXAM DESCRIPTION: CT RT LOWER EXTREMITY WITH COMPLETED DATE/TIME: 03/15/2017 3:30 pm REASON FOR STUDY: LOCALIZED SWELLING, MASS AND LUMP R22.41 LOCALIZED SWELLING, MASS AND LUMP, RIGHT LOWER LIMB COMPARISON: None. TECHNIQUE: Axial imaging performed through the right lower extremity after intravenous contrast with reformatted coronal and sagittal imaging windowed for bone and soft tissues. Images saved to PACS. 3D IMAGING: Were 3D images as MIP, SSD, or volume rendering performed at the work station? Yes. Contrast dose not recorded by technologist. BUN [address] scanners at this facility use dose modulation, iterative reconstruction, and/or weight based d osing when appropriate to reduce radiation dose to as low as reasonably achievable (ALARA). [facility]: Dose Right [facility]: CareDose [facility]: Dose Right [facility]: Teradose 4D [facility]: [employer] LIMITATIONS: None. RADIATION DOSE: Up-to-date CT equipment and radiation dose reduction techniques were employed. CTDIv ol: 4.7 mGy. DLP: 263 mGy-cm. mGy. FINDINGS: SOFT TISSUES: Diffuse subcutaneous edema. No gas fluid collection. Superficial varicosit ies. Extensive vascular calcifications. BONES: No evidence of periosteal reaction or bone abscess. MINERALIZATION: Osteopenia. OTHER: No other significant finding. IMPRESSION: No evidence of abscess or osteomyelitis. TECHNICAL DOCUMENTATION: JOB ID: [id number] Quality ID # [id number]: Final reports with documentation of one or more dose reduction techniques (e.g., Au tomated exposure control, adjustment of the mA and/or kV according to patient size, use of iterative reconstruction technique) 2010 [employer]- All Rights Reserved
== END ==
LOC: RAD 14:36
PROVIDERS: ATTEND Physician Assistant
DX: R22.41 Localized swelling, mass and lump, right lower limb (principal)

== ENCOUNTER 2017-03-25 11:56 | Inpatient (IN) | payer MEDICARE, OTHER ==
--- NOTE | 2017-03-25 12:06 | ER Document Report ---
ED Respiratory Problem - General Mode of Arrival: Ambulatory Information source: Patient TRAVEL OUTSIDE OF THE [place] IN LAST 30 DAYS: No <SHILOH LENTZ - Last Filed: 03/25/17 13:48> <STEPHENIE GARCIA - Last Filed: 03/25/17 15:23> - General Stated Complaint: DIFFICULTY BREATHING Time Seen by Provider: 03/25/17 12:01 Notes: Patient is an 87-year-old female who presents to the emergency department today secondary to possible aspiration. states that this morning the patient was normal however today at around 1100 the patient was in bed with difficulty breathing. According to , the patient vomited prior to this. Patient has yellow staining around her mouth consistent with bilious vomiting. (SHILOH LENTZ) - Related Data Allergies/Adverse Reactions: diazepam [From Valium] Allergy (Verified 03/07/17 18:24) Home Medications: Current Home Medications Amlodipine Besylate [Norvasc 10 mg Tablet] 10 mg PO DAILY 03/25/17 [History] Anastrozole [Arimidex 1 mg Tablet] 1 mg PO DAILY 03/25/17 [History] Atorvastatin Calcium [Lipitor 20 mg Tablet] 20 mg PO QHS 03/25/17 [History] Calcium Carbonate/Vitamin D3 [Calcium 500 + Vit D Caplet] 1 tab PO DAILY [History] Donepezil HCl [Aricept] 10 mg PO QHS 03/25/17 [History] Glimepiride [Amaryl 1 mg Tablet] 1 mg PO BID 03/25/17 [History] Ketotifen Fumarate [Refresh] 1 drop OU QIDP PRN 03/25/17 [History] Losartan Potassium [Cozaar 50 mg Tablet] 50 mg PO DAILY 03/25/17 [History] Omeprazole 20 mg PO DAILY 03/25/17 [History] Potassium Chloride [Klor-Con 10 Meq Tablet.sa] 10 meq PO BID 03/25/17 [History] Sitagliptin Phosphate [Januvia] 50 mg PO BID 03/25/17 [History] Solifenacin Succinate [Vesicare] 10 mg PO DAILY 03/25/17 [History] Past Medical History - General Information source: Patient - Social History Smoking Status: Never Smoker Cigarette use (# per day): No Frequency of alcohol use: None Drug Abuse: None Lives with: Family Family History: Reviewed & Not Pertinent - Past Medical History Cardiac Medical History: Reports: Hx Hypercholesterolemia, Hx Hypertension Pulmonary Medical History: Reports: Hx Pneumonia Neurological Medical History: Reports: Hx Cerebrovascular Accident Endocrine Medical History: Reports: Hx Diabetes Mellitus Type 2 Musculoskeltal Medical History: 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 Past Surgical History: Reports: Hx Appendectomy, Hx Breast Surgery - R breast, Hx Cholecystectomy, Hx Mastectomy - right - Immunizations Hx Diphtheria, Pertussis, Tetanus Vaccination: No Hx Pneumococcal Vaccination: 06/14/12 <SHILOH LENTZ - Last Filed: 03/25/17 13:48> Review of Systems - Review of Systems -: Yes ROS unobtainable due to patient's medical condition <SHILOH LENTZ - Last Filed: 03/25/17 13:48> Physical Exam <SHILOH LENTZ - Last Filed: 03/25/17 13:48> <STEPHENIE GARCIA - Last Filed: 03/25/17 15:23> - Notes Notes: Physical Exam: General: Alert, appears short of breath and uncomfortable. HEENT: Normocephalic. Atraumatic. PERRL. Extraocular movements intact. Oropharynx clear. Yellow staining around mouth consistent with bilious vomiting. Neck: Supple. Non-tender. Respiratory: Moderate respiratory distress. Rhonchi in the upper airway consistent with aspiration. Cardiovascular: Regular rate and rhythm. Abdominal: Normal Inspection. Non-tender. No distension. Normal Bowel Sounds. Back: Non-tender. No deformity or step off. Extremities: Moves all four extremities. Upper extremities: Normal inspection. Normal ROM. Lower extremities: Normal inspection. No edema. Normal ROM. Neurological: unable to assess Psychological: unable to assess Skin: Warm. Dry. Normal color. (SHILOH LENTZ) Course - Laboratory Result Diagrams: 03/25/17 12:05 03/25/17 12:05 <SHILOH LENTZ - Last Filed: 03/25/17 13:48> - Laboratory Result Diagrams: 03/25/17 12:05 03/25/17 12:05 - Diagnostic Test Radiology reviewed: Image reviewed - Appears to be a rather dense right upper lobe infiltrate consistent with aspiration pneumonia - EKG Interpretation by Ia EKG shows normal: Sinus rhythm, [place], Intervals, QRS Complexes. abnormal: ST-T Waves - Lateral T-wave abnormalities Rate: Tachycardia - 108 Rhythm: APC's [place]/QRS: RBBB P Waves: LAE <STEPHENIE GARCIA - Last Filed: 03/25/17 15:23> - Re-evaluation Re-evalutation: 03/25/17 14:39 The patient was changed from the nonrebreather mask to a nasal cannula at 3-1/2 L. She is maintaining O2 sats at 95% on this regimen. She does mostly mouth breathe. We had her sit up fully where she could breathe deep and take big breaths and cough. She states that she does feel better like this and particularly prefers the nasal cannula over the mask. 03/25/17 15:23 The nurse just informed me that the patient was vomiting greenish appearing liquid whenever she is stimulated. An NG tube suction was ordered and an upright abdominal film was ordered. (STEPHENIE GARCIA) - Laboratory Laboratory results interpreted by me: 03/25/17 03/25/17 03/25/17 12:05 12:05 12:05 WBC 17.2 H RBC 3.61 L Hgb 10.4 L Hct 32.0 L RDW 16.4 H Plt Count 497 H Seg Neuts % (Manual) 84 H Band Neutrophils % 9 H Lymphocytes % (Manual) 5 L Monocytes % (Manual) 2 L Abs Neuts (Manual) 16.0 H ABG pO2 ABG Total CO2 ABG O2 Saturation Potassium 2.9 L* Glucose 130 H Lactic Acid 2.6 H Alkaline Phosphatase 152 H Total Protein 5.9 L Urine Protein 03/25/17 03/25/17 12:15 12:50 WBC RBC Hgb Hct RDW Plt Count Seg Neuts % (Manual) Band Neutrophils % Lymphocytes % (Manual) Monocytes % (Manual) Abs Neuts (Manual) ABG pO2 174.2 H ABG Total CO2 26.1 H ABG O2 Saturation 99.2 H Potassium Glucose Lactic Acid Alkaline Phosphatase Total Protein Urine Protein 100 H Critical Care Note - Critical Care Note Total time excluding time spent on procedures (mins): 40 <STEPHENIE GARCIA - Last Filed: 03/25/17 15:23> Discharge <SHILOH LENTZ - Last Filed: 03/25/17 13:48> - Discharge Admitting Provider: Hospitalist Unit Admitted: IMCU <STEPHENIE GARCIA - Last Filed: 03/25/17 15:23> - Discharge Clinical Impression: Hypokalemia Fever Qualifiers: Fever type: unspecified Qualified Code(s): R50.9 - Fever, unspecified Aspiration pneumonia due to regurgitated gastric secretions Qualifiers: Laterality: right Lung location: upper lobe of lung Qualified Code(s): J69.0 - Pneumonitis due to inhalation of food and vomit Leukocytosis Qualifiers: Leukocytosis type: bandemia Qualified Code(s): D72.825 - Bandemia Condition: Stable Disposition: ADMITTED INPATIENT
[2017-03-25] MEDS ORDERED: ACETAMINOPHEN 650 MG SUPP.RECT PR ONE (12:19)
[2017-03-25 12:25] LABS: HEMOGLOBIN 10.4 g/dL (12.0-15.5); HGB HCT DIFFERENCE -0.8; MEAN CORPUSCULAR HEMOGLOBIN 28.9 pg (27.0-33.4); MEAN CORPUSCULAR HGB CONC 32.6 g/dL (32.0-36.0); MEAN CORPUSCULAR VOLUME 89 fl (80-97); RED BLOOD COUNT 3.61 10^6/uL (3.72-5.28); RED CELL DISTRIBUTION WIDTH 16.4 % (11.5-14.0); WHITE BLOOD COUNT 17.2 10^3/uL (4.0-10.5)
[2017-03-25 12:34] LABS: PROTHROMBIN TIME 13.6 SEC (11.4-15.4)
[2017-03-25] MEDS ORDERED: LEVOFLOXACIN 750 MG/D5W RTU 750 MG/150 ML RTUPB IV ONE (12:39)
[2017-03-25 12:40] LABS: BAND NEUTROPHILS % (MANUAL) 9 % (3-5); BASOPHILS % (MANUAL) 0 % (0-2); EOSINOPHILS % (MANUAL) 0 % (0-6); LYMPHOCYTES % (MANUAL) 5 % (13-45); NUCLEATED RED BLOOD CELLS 1 /100 WBC (0); TOTAL CELLS COUNTED 100
[2017-03-25 12:41] LABS: ALANINE AMINOTRANSFERASE 30 U/L (9-52); ALBUMIN 3.5 g/dL (3.5-5.0); ALKALINE PHOSPHATASE 152 U/L (38-126); ANION GAP 15 (5-19); ANISOCYTOSIS 1+; ASPARTATE AMINO TRANSFERASE 36 U/L (14-36); BILIRUBIN,DIRECT 0.3 mg/dL (0.0-0.4); BILIRUBIN,TOTAL 0.6 mg/dL (0.2-1.3); BLOOD UREA NITROGEN 9 mg/dL (7-20); CALCIUM 8.8 mg/dL (8.4-10.2); CARBON DIOXIDE 27 mmol/L (22-30); CHLORIDE 102 mmol/L (98-107); CREATININE RESULT 0.69 mg/dL (0.52-1.25); GLUCOSE 130 mg/dL (75-110); OVALOCYTES 1+; POIKILOCYTOSIS 1+; POLYCHROMASIA SLIGHT; SODIUM 144.3 mmol/L (137-145); TOTAL PROTEIN 5.9 g/dL (6.3-8.2); TOXIC GRANULATION 1+; TOXIC VACUOLATION PRESENT
[2017-03-25 12:45] LABS: ARTERIAL BLOOD BASE EXCESS 0.5 mmol/L; ARTERIAL BLOOD O2 SATURATION 99.2 % (94-98)
[2017-03-25] MEDS ORDERED: POTASSI CL 20 MEQ/50 ML RIDER 20 MEQ/50 ML RTUPB IV ONE (12:45)
[2017-03-25 12:46] LABS: POTASSIUM 2.9 mmol/L (3.6-5.0)
[2017-03-25 13:23] LABS: APPEARANCE,URINE CLEAR; BILIRUBIN,URINE NEGATIVE (NEGATIVE); GLUCOSE, URINE NEGATIVE (NEGATIVE); KETONES,URINE NEGATIVE (NEGATIVE); LEUKOCYTE ESTERASE,URINE NEGATIVE (NEGATIVE); NITRITE,URINE NEGATIVE (NEGATIVE); PROTEIN,URINE 100 mg/dL (NEGATIVE); URINE SPECIFIC GRAVITY 1.008; UROBILINOGEN,URINE NEGATIVE mg/dL (<2.0)
--- NOTE | 2017-03-25 13:57 | RADIOLOGY REPORT (SQ) ---
EXAM DESCRIPTION: CHEST SINGLE VIEW COMPLETED DATE/TIME: 03/25/2017 12:45 pm REASON FOR STUDY: t1 sepsis protocol COMPARISON: Chest films 12/14/2016, 03/13/2017 CT chest 11/14/2013 EXAM PARAMETERS: NUMBER OF VIEWS: One view. TECHNIQUE: Single frontal radiographic view of the chest acquired. RADIATION DOSE: NA LIMITATIONS: None. FINDINGS: LUNGS AND PLEURA: Dense consolidation in the anterior aspect right upper lobe from pneumon ia. This should be followed to radiographic clearing to ensure no underlying right hilar mass or end obronchial lesion. Lungs are otherwise well inflated and free of focal infiltrates. No pleural effusion. No pneumothor ax. MEDIASTINUM AND HILAR STRUCTURES: No masses. Contour normal. HEART AND VASCULAR STRUCTURES: Heart normal in size. Normal vasculature. BONES: No acute findings. HARDWARE: None in the chest. Clips right upper quadrant post cholecystectomy. OTHER: No other significant finding. IMPRESSION: Anterior right upper lobe pneumonia. TECHNICAL DOCUMENTATION: JOB ID: [id number]
[2017-03-25] MEDS ORDERED: ACETAMINOPHEN 325 MG TABLET PO PRN (14:48)
[2017-03-25] MEDS ORDERED: ONDANSETRON 4 MG TAB.RAPDIS PO PRN (14:48)
[2017-03-25] MEDS ORDERED: ONDANSETRON HCL INJ/PF 4 MG/2 ML SDV IV PRN (14:48)
[2017-03-25] MEDS ORDERED: (PENDING PHARMACY ID) (Ketotifen Fumarate [Refresh] 1 DROP) OU PRN (14:58)
[2017-03-25] MEDS ORDERED: DEXTROSE 50%-WATER 25 GM/50 ML DISP.SYRIN IV PRN ×2 (15:06)
[2017-03-25] MEDS ORDERED: GLUCAGON,HUMAN RECOMB 1 MG INJ IM PRN (15:06)
[2017-03-25] MEDS ORDERED: DEXTROSE 40% GEL 15 GM TUBE PO PRN ×2 (15:06)
--- NOTE | 2017-03-25 15:17 | PDOC H&P ---
History of Present Illness Admission Date/PCP: 03/25/17 13:47 CORAZON CARRION PA-C Patient complains of: Vomiting History of Present Illness: SANDY DANG is a 87 year old female with mild dementia who presented to the emergency room after vomiting. The patient's reports that this morning she woke up she was feeling fine and then she vomited and aspirated. She was having some shortness of breath and cough. She was found to have some hypoxia and some relatively low blood pressures. Chest x-ray shows her to have a right middle lobe consistent with aspiration. Patient has been given Levaquin already in the emergency room. The patient has mild dementia and she denies any chest pain. She does report feeling short of breath and has had a productive cough. She denies having any fevers or chills. She denies any orthopnea PND or lower extremity edema. 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 Psychiatric Medical History: Reports: Dementia Hematology: Denies: Anemia Infectious Medical History: Reports: None Past Surgical History Past Surgical History: Reports: Appendectomy, Cholecystectomy, Mastectomy - right Social History Information Source: Patient Lives with: Family, Spouse/Significant other Smoking Status: Never Smoker Frequency of Alcohol Use: None Hx Recreational Drug Use: No Drugs: None Hx Prescription Drug Abuse: No - Advance Directive Resuscitation Status: Full Code Surrogate healthcare decision maker:: Her Family History Family History: Congestive heart failure and coronary artery disease Parental Family History Reviewed: Yes Children Family History Reviewed: No Sibling(s) Family History Reviewed.: No Medication/Allergy Home Medications: Amlodipine Besylate [Norvasc 10 mg Tablet] 10 mg PO DAILY 03/25/17 Anastrozole [Arimidex 1 mg Tablet] 1 mg PO DAILY 03/25/17 Atorvastatin Calcium [Lipitor 20 mg Tablet] 20 mg PO QHS 03/25/17 Calcium Carbonate/Vitamin D3 [Calcium 500 + Vit D Caplet] 1 tab PO DAILY Donepezil HCl [Aricept] 10 mg PO QHS 03/25/17 Glimepiride [Amaryl 1 mg Tablet] 1 mg PO BID 03/25/17 Ketotifen Fumarate [Refresh] 1 drop OU QIDP PRN 03/25/17 Losartan Potassium [Cozaar 50 mg Tablet] 50 mg PO DAILY 03/25/17 Omeprazole 20 mg PO DAILY 03/25/17 Potassium Chloride [Klor-Con 10 Meq Tablet.sa] 10 meq PO BID 03/25/17 Sitagliptin Phosphate [Januvia] 50 mg PO BID 03/25/17 Solifenacin Succinate [Vesicare] 10 mg PO DAILY 03/25/17 Allergies/Adverse Reactions: diazepam [From Valium] Allergy (Verified 03/07/17 18:24) Review of Systems Constitutional: ABSENT: chills, fever(s), headache(s), weight gain, weight loss Eyes: ABSENT: visual disturbances Ears: ABSENT: hearing changes Cardiovascular: ABSENT: chest pain, dyspnea on exertion, edema, orthropnea, palpitations Respiratory: PRESENT: as per HPI Gastrointestinal: ABSENT: abdominal pain, constipation, diarrhea, hematemesis, hematochezia, nausea, vomiting Genitourinary: ABSENT: dysuria, hematuria Musculoskeletal: ABSENT: joint swelling Integumentary: ABSENT: rash, wounds Neurological: PRESENT: memory loss. ABSENT: abnormal gait, abnormal speech, confusion, dizziness, focal weakness, syncope Psychiatric: ABSENT: anxiety, depression Endocrine: ABSENT: cold intolerance, heat intolerance, polydipsia, polyuria Hematologic/Lymphatic: ABSENT: easy bleeding, easy bruising Physical Exam Vital Signs: Intake & Output 03/24/17 03/25/17 03/26/17 06:59 06:59 06:59 Weight 87 kg General appearance: PRESENT: no acute distress, obese Head exam: PRESENT: atraumatic, normocephalic Eye exam: PRESENT: conjunctiva pink, EOMI, PERRLA. ABSENT: scleral icterus Ear exam: PRESENT: normal external ear exam Mouth exam: PRESENT: moist, tongue midline Neck exam: ABSENT: carotid bruit, JVD, lymphadenopathy, thyromegaly Respiratory exam: PRESENT: rales - Right basilar inspiratory rales. ABSENT: rhonchi, wheezes Cardiovascular exam: PRESENT: RRR. ABSENT: diastolic murmur, rubs, systolic murmur GI/Abdominal exam: PRESENT: normal bowel sounds, soft. ABSENT: distended, guarding, mass, organolmegaly, rebound, tenderness Rectal exam: PRESENT: deferred Extremities exam: ABSENT: calf tenderness, clubbing, pedal edema Neurological exam: PRESENT: alert, awake, oriented to person, oriented to place , CN II-XII grossly intact. ABSENT: oriented to time, oriented to situation, motor sensory deficit Psychiatric exam: PRESENT: flat affect Skin exam: PRESENT: dry, intact, warm. ABSENT: cyanosis, rash Results Impressions: Chest X-Ray 03/25/17 12:01 IMPRESSION: Anterior right upper lobe pneumonia. Assessment & Plan - Diagnosis (1) Aspiration pneumonia due to regurgitated gastric secretions Qualifiers: Laterality: right Lung location: upper lobe of lung Qualified Code(s): J69.0 - Pneumonitis due to inhalation of food and vomit Is this a current diagnosis for this admission?: Yes Plan: Patient has what appears to be right middle lobe pneumonia secondary to aspiration. Will treat with Levaquin. Will give oxygen and nebulizers as needed. (2) Diabetes mellitus Is this a current diagnosis for this admission?: Yes Plan: We will cover with sliding scale insulin. (3) Dementia Is this a current diagnosis for this admission?: Yes Plan: Patient has mild dementia but has been more confused today according to the . (4) Acute encephalopathy Is this a current diagnosis for this admission?: Yes Plan: Most likely secondary to the underlying infection. (5) HLD (hyperlipidemia) Qualifiers: Hyperlipidemia type: unspecified Qualified Code(s): E78.5 - Hyperlipidemia , unspecified Is this a current diagnosis for this admission?: Yes (6) HTN (hypertension) Qualifiers: Hypertension type: essential hypertension Qualified Code(s): I10 - Essential (primary) hypertension Is this a current diagnosis for this admission?: Yes (7) Hypokalemia Is this a current diagnosis for this admission?: Yes Plan: We will replace and continue to monitor. - Time Time Spent: 50 to 70 Minutes - Inpatient Certification Medical Necessity: Need For IV Fluids, Need for IV Antibiotics
[2017-03-25] MEDS ORDERED: POLYVINYL ALCOHOL 1.4% OPH SOLN 15 ML OU PRN (15:21)
--- NOTE | 2017-03-25 16:42 | RADIOLOGY REPORT (SQ) ---
EXAM DESCRIPTION: KUB/ABDOMEN (SINGLE VIEW) COMPLETED DATE/TIME: 03/25/2017 4:24 pm REASON FOR STUDY: upright/NGT PLACEMENT COMPARISON: Chest films 03/13/2017, 03/07/2017, , 12/29/2015 NUMBER OF VIEWS: One view. TECHNIQUE: Supine film of the chest and abdomen for nasogastric tube placement LIMITATIONS: None. FINDINGS: Nasogastric tube tip and side port in the stomach. Small amount of air in the stomach fun dus. There is mass versus consolidation in the right perihilar region. Lungs are otherwise grossly clear. Stable moderate cardiomegaly. IMPRESSION: Nasogastric tube tip and side port in the stomach TECHNICAL DOCUMENTATION: JOB ID: [id number] [email or web address]- All Rights Reserved
[2017-03-25] MEDS: NORMAL SALINE 1000 ML 1,000 ML IV PRN (17:05)
[2017-03-25] MEDS ORDERED: POTASSIUM CHLORIDE 10 MEQ TABLET.SA PO SCH (18:00)
[2017-03-25] MEDS: SITAGLIPTIN PHOSPHATE 50 MG TABLET PO SCH (18:13)
--- NOTE | 2017-03-25 19:57 | EKG REPORT ---
SEVERITY:- ABNORMAL ECG - SINUS TACHYCARDIA MULTIPLE ATRIAL PREMATURE COMPLEXES PROBABLE LEFT ATRIAL ABNORMALITY INCOMPLETE RIGHT BUNDLE BRANCH BLOCK ABNORMAL T, CONSIDER ISCHEMIA, LATERAL LEADS : Confirmed by: Regino Aguayo MD 25-Mar-2017 19:56:39
[2017-03-25] MEDS: DONEPEZIL HCL 5 MG TABLET PO SCH (21:22)
[2017-03-25] MEDS: TOLTERODINE TARTRATE 1 MG TABLET PO SCH (21:22)
[2017-03-25] MEDS: ATORVASTATIN CALCIUM 20 MG TABLET PO SCH (21:22)
[2017-03-25] MEDS: FAMOTIDINE 20 MG TABLET PO SCH (21:22)
[2017-03-25] MEDS ORDERED: (PENDING PHARMACY ID) (Donepezil Hcl [Aricept] 10 MG) PO SCH (22:00)
[2017-03-25] MEDS ORDERED: FAMOTIDINE 20 MG TABLET PO SCH (22:00)
[2017-03-26] MEDS ORDERED: ACETAMINOPHEN 650 MG SUPP.RECT PR PRN (01:18)
[2017-03-26 05:31] LABS: HEMATOCRIT 28.6 % (36.0-47.0); HEMOGLOBIN 9.2 g/dL (12.0-15.5); MEAN CORPUSCULAR HEMOGLOBIN 28.6 pg (27.0-33.4); MEAN CORPUSCULAR HGB CONC 32.2 g/dL (32.0-36.0); MEAN CORPUSCULAR VOLUME 89 fl (80-97); RED BLOOD COUNT 3.21 10^6/uL (3.72-5.28); RED CELL DISTRIBUTION WIDTH 16.7 % (11.5-14.0); WHITE BLOOD COUNT 28.8 10^3/uL (4.0-10.5)
[2017-03-26 05:40] LABS: ANION GAP 11 (5-19); BLOOD UREA NITROGEN 13 mg/dL (7-20); CALCIUM 8.3 mg/dL (8.4-10.2); CARBON DIOXIDE 28 mmol/L (22-30); CHLORIDE 106 mmol/L (98-107); CREATININE RESULT 0.72 mg/dL (0.52-1.25); GLUCOSE 87 mg/dL (75-110); POTASSIUM 3.3 mmol/L (3.6-5.0); SODIUM 145.1 mmol/L (137-145)
[2017-03-26 06:00] LABS: BASOPHILS % (MANUAL) 0 % (0-2); EOSINOPHILS % (MANUAL) 0 % (0-6); LYMPHOCYTES % (MANUAL) 2 % (13-45); TOTAL CELLS COUNTED 100
[2017-03-26 06:05] LABS: TOXIC GRANULATION 1+
[2017-03-26 06:06] LABS: ANISOCYTOSIS 1+; HYPOCHROMASIA SLIGHT; OVALOCYTES SLIGHT; POIKILOCYTOSIS SLIGHT; POLYCHROMASIA SLIGHT; TARGET CELLS 1+; TEAR DROP CELLS SLIGHT; TOXIC VACUOLATION PRESENT
[2017-03-26 06:07] LABS: BAND NEUTROPHILS % (MANUAL) 23 % (3-5)
[2017-03-26] MEDS: LANSOPRAZOLE 15 MG TAB.RAP.DR PO SCH (06:49)
[2017-03-26] MEDS: CALCIUM CARBONATE 250 MG/VITAMIN D3 125 UNIT TABLET PO SCH (07:44)
[2017-03-26] MEDS ORDERED: POTASSI CL 20 MEQ/50 ML RIDER 20 MEQ/50 ML RTUPB IV ONE (09:00)
[2017-03-26] MEDS: NORMAL SALINE 1000 ML 1,000 ML IV PRN (09:23)
[2017-03-26] MEDS ORDERED: DEXTROSE IV SCH (10:00)
[2017-03-26] MEDS ORDERED: (PENDING PHARMACY ID) (Solifenacin Succinate [Vesicare] 10 MG) PO SCH (10:00)
[2017-03-26] MEDS ORDERED: LEVOFLOXACIN IV SCH (10:00)
[2017-03-26] MEDS ORDERED: (PENDING PHARMACY ID) (Calcium Carbonate/Vitamin D3 [Calcium 500 + Vit D Caplet] 1 TAB) PO SCH (10:00)
[2017-03-26] MEDS: LEVOFLOXACIN 750 MG/D5W RTU 750 MG/150 ML RTUPB IV SCH (10:55)
[2017-03-26] MEDS: ENOXAPARIN SODIUM INJ 40 MG/0.4 ML DISP.SYRIN SUBCUT SCH (10:57)
[2017-03-26] MEDS: FAMOTIDINE 20 MG TABLET PO SCH ×2 (11:16→22:03)
[2017-03-26] MEDS: SITAGLIPTIN PHOSPHATE 50 MG TABLET PO SCH ×2 (11:16→17:28)
[2017-03-26] MEDS: TOLTERODINE TARTRATE 1 MG TABLET PO SCH ×2 (11:16→22:03)
[2017-03-26] MEDS: POTASSIUM CHLORIDE 10 MEQ TABLET.SA PO SCH ×2 (11:17→17:28)
[2017-03-26] MEDS: LOSARTAN POTASSIUM 50 MG TABLET PO SCH (11:18)
[2017-03-26] MEDS: AMLODIPINE BESYLATE 10 MG TABLET PO SCH (11:18)
[2017-03-26] MEDS: ANASTROZOLE 1 MG TABLET PO SCH (11:19)
--- NOTE | 2017-03-26 11:54 | PDOC PROGRESS REPORT ---
Subjective Progress Note for:: 03/26/17 Subjective:: Patient is more alert and denies any nausea or vomiting. She wants to see if she can eat. Physical Exam Vital Signs: Temp Pulse Resp BP Pulse Ox 100.0 F 95 24 H 146/57 H 94 03/26/17 07:35 03/26/17 07:35 03/26/17 07:35 03/26/17 07:35 03/26/17 07:35 Intake & Output 03/25/17 03/26/17 03/27/17 06:59 06:59 06:59 Intake Total 2513 Output Total 1360 Balance 1153 Weight 89.7 kg General appearance: PRESENT: no acute distress Eye exam: PRESENT: conjunctiva pink. ABSENT: scleral icterus Mouth exam: PRESENT: moist, tongue midline Neck exam: ABSENT: JVD Respiratory exam: PRESENT: rhonchi - Right lower rhonchi.. ABSENT: rales, wheezes Cardiovascular exam: PRESENT: RRR. ABSENT: diastolic murmur, rubs, systolic murmur GI/Abdominal exam: PRESENT: normal bowel sounds, soft. ABSENT: distended, guarding, mass, organolmegaly, rebound, tenderness Extremities exam: ABSENT: calf tenderness, clubbing, pedal edema Neurological exam: PRESENT: alert, awake, oriented to person, oriented to place , oriented to time, oriented to situation, CN II-XII grossly intact. ABSENT: motor sensory deficit Psychiatric exam: PRESENT: appropriate affect Skin exam: PRESENT: dry, intact, warm. ABSENT: cyanosis, rash Results Laboratory Results: 03/26/17 04:43 03/26/17 04:43 03/25/17 03/26/17 03/26/17 16:13 04:43 04:43 WBC 28.8 H RBC 3.21 L Hgb 9.2 L Hct 28.6 L MCV 89 MCH 28.6 MCHC 32.2 RDW 16.7 H Plt Count 415 Seg Neutrophils % Not Reportable Lymphocytes % Not Reportable Monocytes % Not Reportable Eosinophils % Not Reportable Basophils % Not Reportable Absolute Neutrophils Not Reportable Absolute Lymphocytes Not Reportable Absolute Monocytes Not Reportable Absolute Eosinophils Not Reportable Absolute Basophils Not Reportable Sodium 145.1 H Potassium 3.3 L Chloride 106 Carbon Dioxide 28 Anion Gap 11 BUN 13 Creatinine 0.72 Est GFR ( Amer) > 60 Est GFR (Non-Af Amer) > 60 Glucose 87 Lactic Acid 3.9 H Calcium 8.3 L Impressions: Chest X-Ray 03/25/17 12:01 IMPRESSION: Anterior right upper lobe pneumonia. KUB X-Ray 03/25/17 15:22 IMPRESSION: Nasogastric tube tip and side port in the stomach Assessment & Plan - Diagnosis (1) Aspiration pneumonia due to regurgitated gastric secretions Qualifiers: Laterality: right Lung location: upper lobe of lung Qualified Code(s): J69.0 - Pneumonitis due to inhalation of food and vomit Is this a current diagnosis for this admission?: Yes Plan: Patient has what appears to be right middle lobe pneumonia secondary to aspiration. Will continue with Levaquin. Will also continue oxygen and nebulizers as needed. Patient is feeling much better and would like to try to eat. Will start with liquids and see how she does. (2) Diabetes mellitus Is this a current diagnosis for this admission?: Yes Plan: We will cover with sliding scale insulin. (3) Dementia Is this a current diagnosis for this admission?: Yes Plan: Patient has mild dementia but is much more alert today. (4) Acute encephalopathy Is this a current diagnosis for this admission?: Yes Plan: Most likely secondary to the underlying infection. It has improved since yesterday. (5) HLD (hyperlipidemia) Qualifiers: Hyperlipidemia type: unspecified Qualified Code(s): E78.5 - Hyperlipidemia , unspecified Is this a current diagnosis for this admission?: Yes (6) HTN (hypertension) Qualifiers: Hypertension type: essential hypertension Qualified Code(s): I10 - Essential (primary) hypertension Is this a current diagnosis for this admission?: Yes (7) Hypokalemia Is this a current diagnosis for this admission?: Yes Plan: We will replace and continue to monitor. - Time Time Spent with patient: 25-34 minutes - Inpatient Certification Medical Necessity: Need for IV Antibiotics
[2017-03-26] MEDS: IPRATROPIUM/ALBUTEROL 0.5-2.5 MG/3 ML AMPUL NEB PRN (12:26)
[2017-03-26 13:04] LABS: PATH REVIEW PATHOLOGIST REVIEWED
[2017-03-26] MEDS: ROPINIROLE HCL 2 MG TABLET PO SCH (17:28)
[2017-03-26] MEDS: DONEPEZIL HCL 5 MG TABLET PO SCH (22:02)
[2017-03-26] MEDS: ATORVASTATIN CALCIUM 20 MG TABLET PO SCH (22:03)
[2017-03-27] MEDS: IPRATROPIUM/ALBUTEROL 0.5-2.5 MG/3 ML AMPUL NEB PRN ×2 (01:56→17:38)
[2017-03-27] MEDS ORDERED: FUROSEMIDE INJ/PF 20 MG/2 ML SDV ONE (03:57)
[2017-03-27] MEDS ORDERED: FUROSEMIDE INJ/PF 20 MG/2 ML SDV IV ONE (04:00)
[2017-03-27 05:13] LABS: HEMATOCRIT 28.9 % (36.0-47.0); HEMOGLOBIN 9.2 g/dL (12.0-15.5); HGB HCT DIFFERENCE -1.3; MEAN CORPUSCULAR HEMOGLOBIN 28.6 pg (27.0-33.4); MEAN CORPUSCULAR HGB CONC 31.9 g/dL (32.0-36.0); MEAN CORPUSCULAR VOLUME 90 fl (80-97); RED BLOOD COUNT 3.23 10^6/uL (3.72-5.28); RED CELL DISTRIBUTION WIDTH 16.2 % (11.5-14.0); WHITE BLOOD COUNT 24.9 10^3/uL (4.0-10.5)
[2017-03-27 05:39] LABS: ANION GAP 11 (5-19); BLOOD UREA NITROGEN 20 mg/dL (7-20); CALCIUM 8.9 mg/dL (8.4-10.2); CARBON DIOXIDE 29 mmol/L (22-30); CHLORIDE 105 mmol/L (98-107); CREATININE RESULT 0.72 mg/dL (0.52-1.25); GLUCOSE 121 mg/dL (75-110); POTASSIUM 4.1 mmol/L (3.6-5.0); SODIUM 144.5 mmol/L (137-145)
[2017-03-27 06:19] LABS: BAND NEUTROPHILS % (MANUAL) 12 % (3-5); BASOPHILS % (MANUAL) 0 % (0-2); EOSINOPHILS % (MANUAL) 0 % (0-6); LYMPHOCYTES % (MANUAL) 4 % (13-45); TOTAL CELLS COUNTED 100
[2017-03-27 06:21] LABS: HYPOCHROMASIA 1+; MICROCYTOSIS 1+; POLYCHROMASIA 1+
[2017-03-27 06:22] LABS: ANISOCYTOSIS 1+; POIKILOCYTOSIS 1+
[2017-03-27 06:23] LABS: SCHISTOCYTES SLIGHT
[2017-03-27] MEDS: LANSOPRAZOLE 15 MG TAB.RAP.DR PO SCH (06:50)
--- NOTE | 2017-03-27 10:57 | PDOC PROGRESS REPORT ---
Subjective Progress Note for:: 03/27/17 Subjective:: Complains of pain in her bilateral feet. Physical Exam Vital Signs: Temp Pulse Resp BP Pulse Ox 100.4 F 59 L 24 H 121/56 L 94 03/27/17 07:24 03/27/17 07:24 03/27/17 07:24 03/27/17 07:24 03/27/17 07:24 Intake & Output 03/26/17 03/27/17 03/28/17 06:59 06:59 06:59 Intake Total 2513 2467 Output Total 1360 1600 Balance 1153 867 Weight 89.7 kg 91.6 kg General appearance: PRESENT: no acute distress Eye exam: PRESENT: conjunctiva pink. ABSENT: scleral icterus Mouth exam: PRESENT: moist, tongue midline Neck exam: ABSENT: JVD Respiratory exam: PRESENT: rhonchi - Bibasilar rhonchi. ABSENT: rales, wheezes Cardiovascular exam: PRESENT: RRR. ABSENT: diastolic murmur, rubs, systolic murmur GI/Abdominal exam: PRESENT: normal bowel sounds, soft. ABSENT: distended, guarding, mass, organolmegaly, rebound, tenderness Extremities exam: ABSENT: calf tenderness, clubbing, pedal edema Neurological exam: PRESENT: alert, awake, oriented to person, oriented to place. ABSENT: oriented to time, oriented to situation Psychiatric exam: PRESENT: appropriate affect Skin exam: PRESENT: dry, intact, warm. ABSENT: cyanosis, rash Results Laboratory Results: 03/27/17 04:16 03/27/17 04:16 03/27/17 03/27/17 04:16 04:16 WBC 24.9 H RBC 3.23 L Hgb 9.2 L Hct 28.9 L MCV 90 MCH 28.6 MCHC 31.9 L RDW 16.2 H Plt Count 407 Seg Neutrophils % Not Reportable Lymphocytes % Not Reportable Monocytes % Not Reportable Eosinophils % Not Reportable Basophils % Not Reportable Absolute Neutrophils Not Reportable Absolute Lymphocytes Not Reportable Absolute Monocytes Not Reportable Absolute Eosinophils Not Reportable Absolute Basophils Not Reportable Sodium 144.5 Potassium 4.1 Chloride 105 Carbon Dioxide 29 Anion Gap 11 BUN 20 Creatinine 0.72 Est GFR ( Amer) > 60 Est GFR (Non-Af Amer) > 60 Glucose 121 H Calcium 8.9 03/27/17 02:38 NT-Pro-B Natriuret Pep 3040 H Impressions: Chest X-Ray 03/25/17 12:01 IMPRESSION: Anterior right upper lobe pneumonia. KUB X-Ray 03/25/17 15:22 IMPRESSION: Nasogastric tube tip and side port in the stomach Assessment & Plan - Diagnosis (1) Aspiration pneumonia due to regurgitated gastric secretions Qualifiers: Laterality: right Lung location: upper lobe of lung Qualified Code(s): J69.0 - Pneumonitis due to inhalation of food and vomit Is this a current diagnosis for this admission?: Yes Plan: Patient has what appears to be right middle lobe pneumonia secondary to aspiration. Will continue with Levaquin. Will also continue oxygen and nebulizers as needed. Growing E. coli from blood cultures (2) Diabetes mellitus Is this a current diagnosis for this admission?: Yes Plan: We will cover with sliding scale insulin. (3) Dementia Is this a current diagnosis for this admission?: Yes Plan: Patient has mild dementia but is much more alert today. (4) Acute encephalopathy Is this a current diagnosis for this admission?: Yes Plan: Most likely secondary to the underlying infection. It has improved (5) HLD (hyperlipidemia) Qualifiers: Hyperlipidemia type: unspecified Qualified Code(s): E78.5 - Hyperlipidemia , unspecified Is this a current diagnosis for this admission?: Yes (6) HTN (hypertension) Qualifiers: Hypertension type: essential hypertension Qualified Code(s): I10 - Essential (primary) hypertension Is this a current diagnosis for this admission?: Yes (7) Hypokalemia Is this a current diagnosis for this admission?: Yes Plan: Resolved (8) Neuropathy Is this a current diagnosis for this admission?: Yes Plan: Patient complains of bilateral foot pain that suggestive of peripheral neuropathy. Will try her on gabapentin. - Time Time Spent with patient: 25-34 minutes - Inpatient Certification Medical Necessity: Need for IV Antibiotics
[2017-03-27] MEDS: POTASSIUM CHLORIDE 10 MEQ TABLET.SA PO SCH ×2 (11:01→17:24)
[2017-03-27] MEDS: SITAGLIPTIN PHOSPHATE 50 MG TABLET PO SCH ×2 (11:01→17:24)
[2017-03-27] MEDS: FAMOTIDINE 20 MG TABLET PO SCH ×2 (11:01→22:04)
[2017-03-27] MEDS: AMLODIPINE BESYLATE 10 MG TABLET PO SCH (11:02)
[2017-03-27] MEDS: LOSARTAN POTASSIUM 50 MG TABLET PO SCH (11:02)
[2017-03-27] MEDS: TOLTERODINE TARTRATE 1 MG TABLET PO SCH ×2 (11:03→22:04)
[2017-03-27] MEDS: ENOXAPARIN SODIUM INJ 40 MG/0.4 ML DISP.SYRIN SUBCUT SCH (11:03)
[2017-03-27] MEDS: LEVOFLOXACIN 750 MG/D5W RTU 750 MG/150 ML RTUPB IV SCH (11:04)
[2017-03-27] MEDS: CALCIUM CARBONATE 250 MG/VITAMIN D3 125 UNIT TABLET PO SCH (11:05)
[2017-03-27] MEDS: ROPINIROLE HCL 2 MG TABLET PO SCH ×2 (11:06→17:24)
[2017-03-27] MEDS: ANASTROZOLE 1 MG TABLET PO SCH (11:06)
[2017-03-27] MEDS: DONEPEZIL HCL 5 MG TABLET PO SCH (22:04)
[2017-03-27] MEDS: GABAPENTIN 100 MG CAPSULE PO SCH (22:04)
[2017-03-27] MEDS: ATORVASTATIN CALCIUM 20 MG TABLET PO SCH (22:04)
[2017-03-27] MEDS: INSULIN LISPRO 100 UNIT/ML 3 ML VIAL SUBCUT PRN (22:04)
[2017-03-28] MEDS: LANSOPRAZOLE 15 MG TAB.RAP.DR PO SCH (05:28)
[2017-03-28] MEDS: AMLODIPINE BESYLATE 10 MG TABLET PO SCH (10:55)
[2017-03-28] MEDS: CALCIUM CARBONATE 250 MG/VITAMIN D3 125 UNIT TABLET PO SCH (10:55)
[2017-03-28] MEDS: FAMOTIDINE 20 MG TABLET PO SCH ×2 (10:55→21:38)
[2017-03-28] MEDS: POTASSIUM CHLORIDE 10 MEQ TABLET.SA PO SCH ×2 (10:56→18:03)
[2017-03-28] MEDS: GABAPENTIN 100 MG CAPSULE PO SCH ×2 (10:56→21:39)
[2017-03-28] MEDS: LOSARTAN POTASSIUM 50 MG TABLET PO SCH (10:57)
[2017-03-28] MEDS: ENOXAPARIN SODIUM INJ 40 MG/0.4 ML DISP.SYRIN SUBCUT SCH (10:57)
[2017-03-28] MEDS: ANASTROZOLE 1 MG TABLET PO SCH (10:57)
[2017-03-28] MEDS: TOLTERODINE TARTRATE 1 MG TABLET PO SCH ×2 (10:57→21:39)
[2017-03-28] MEDS: SITAGLIPTIN PHOSPHATE 50 MG TABLET PO SCH ×2 (10:58→18:03)
[2017-03-28] MEDS: ROPINIROLE HCL 2 MG TABLET PO SCH ×2 (10:58→18:03)
[2017-03-28] MEDS: LEVOFLOXACIN 750 MG/D5W RTU 750 MG/150 ML RTUPB IV SCH (10:58)
[2017-03-28] MEDS: IPRATROPIUM/ALBUTEROL 0.5-2.5 MG/3 ML AMPUL NEB PRN (12:22)
--- NOTE | 2017-03-28 13:36 | PDOC PROGRESS REPORT ---
Subjective Progress Note for:: 03/28/17 Subjective:: Reports that her foot pain is improved. Physical Exam Vital Signs: Temp Pulse Resp BP Pulse Ox 98.5 F 78 20 141/60 H 95 03/28/17 11:39 03/28/17 12:24 03/28/17 12:24 03/28/17 11:39 03/28/17 12:24 Intake & Output 03/27/17 03/28/17 03/29/17 06:59 06:59 06:59 Intake Total 2467 1009 Output Total 1600 1150 Balance 867 -141 Weight 91.6 kg 90.8 kg General appearance: PRESENT: no acute distress Eye exam: PRESENT: conjunctiva pink. ABSENT: scleral icterus Mouth exam: PRESENT: moist, tongue midline Neck exam: ABSENT: JVD Respiratory exam: PRESENT: clear to auscultation stella. ABSENT: rales, rhonchi, wheezes Cardiovascular exam: PRESENT: RRR. ABSENT: diastolic murmur, rubs, systolic murmur GI/Abdominal exam: PRESENT: normal bowel sounds, soft. ABSENT: distended, guarding, mass, organolmegaly, rebound, tenderness Extremities exam: ABSENT: calf tenderness, clubbing, pedal edema Neurological exam: PRESENT: alert, awake, oriented to person, oriented to place , oriented to time, CN II-XII grossly intact. ABSENT: oriented to situation, motor sensory deficit Psychiatric exam: PRESENT: appropriate affect Skin exam: PRESENT: dry, intact, warm. ABSENT: cyanosis, rash Results Laboratory Results: 03/27/17 04:16 03/27/17 04:16 03/27/17 02:38 NT-Pro-B Natriuret Pep 3040 H Impressions: Chest X-Ray 03/25/17 12:01 IMPRESSION: Anterior right upper lobe pneumonia. KUB X-Ray 03/25/17 15:22 IMPRESSION: Nasogastric tube tip and side port in the stomach Assessment & Plan - Diagnosis (1) Aspiration pneumonia due to regurgitated gastric secretions Qualifiers: Laterality: right Lung location: upper lobe of lung Qualified Code(s): J69.0 - Pneumonitis due to inhalation of food and vomit Is this a current diagnosis for this admission?: Yes Plan: Patient has what appears to be right middle lobe pneumonia secondary to aspiration. Will continue with Levaquin. Will also continue oxygen and nebulizers as needed. Growing E. coli from blood cultures (2) Diabetes mellitus Is this a current diagnosis for this admission?: Yes Plan: We will cover with sliding scale insulin. (3) Dementia Is this a current diagnosis for this admission?: Yes Plan: Patient has mild dementia but is alert today. (4) Acute encephalopathy Is this a current diagnosis for this admission?: Yes Plan: Most likely secondary to the underlying infection. It has improved (5) HLD (hyperlipidemia) Qualifiers: Hyperlipidemia type: unspecified Qualified Code(s): E78.5 - Hyperlipidemia , unspecified Is this a current diagnosis for this admission?: Yes (6) HTN (hypertension) Qualifiers: Hypertension type: essential hypertension Qualified Code(s): I10 - Essential (primary) hypertension Is this a current diagnosis for this admission?: Yes (7) Hypokalemia Is this a current diagnosis for this admission?: Yes Plan: Resolved (8) Neuropathy Is this a current diagnosis for this admission?: Yes Plan: Patient complains of bilateral foot pain that suggestive of peripheral neuropathy. Will continue her on gabapentin. - Time Time Spent with patient: 25-34 minutes - Inpatient Certification Medical Necessity: Need for IV Antibiotics
[2017-03-28] MEDS: ATORVASTATIN CALCIUM 20 MG TABLET PO SCH (21:38)
[2017-03-28] MEDS: DONEPEZIL HCL 5 MG TABLET PO SCH (21:38)
[2017-03-29 05:16] LABS: ABSOLUTE BASOPHILS # (AUTO) 0.1 10^3/uL (0.0-0.2); ABSOLUTE MONOCYTES (AUTO) 1.5 10^3/uL (0.1-1.4); ABSOLUTE NEUT (AUTO) 10.1 10^3/uL (1.7-8.2); BASOPHILS % (AUTO) 0.9 % (0-2); EOSINOPHILS % (AUTO) 0.4 % (0-6); HEMATOCRIT 26.8 % (36.0-47.0); HEMOGLOBIN 8.6 g/dL (12.0-15.5); LYMPHOCYTES % (AUTO) 7.7 % (13-45); MEAN CORPUSCULAR HEMOGLOBIN 28.6 pg (27.0-33.4); MEAN CORPUSCULAR HGB CONC 32.3 g/dL (32.0-36.0); MEAN CORPUSCULAR VOLUME 89 fl (80-97); MONOCYTES % (AUTO) 11.7 % (3-13); RED BLOOD COUNT 3.02 10^6/uL (3.72-5.28); RED CELL DISTRIBUTION WIDTH 16.6 % (11.5-14.0); SEGMENTED NEUTROPHILS % (AUTO) 79.3 % (42-78); WHITE BLOOD COUNT 12.8 10^3/uL (4.0-10.5)
[2017-03-29 05:40] LABS: ANION GAP 5 (5-19); BLOOD UREA NITROGEN 12 mg/dL (7-20); CALCIUM 8.9 mg/dL (8.4-10.2); CARBON DIOXIDE 34 mmol/L (22-30); CHLORIDE 102 mmol/L (98-107); CREATININE RESULT 0.57 mg/dL (0.52-1.25); GLUCOSE 142 mg/dL (75-110); POTASSIUM 4.3 mmol/L (3.6-5.0); SODIUM 141.4 mmol/L (137-145)
[2017-03-29] MEDS: LANSOPRAZOLE 15 MG TAB.RAP.DR PO SCH (06:18)
[2017-03-29] MEDS: IPRATROPIUM/ALBUTEROL 0.5-2.5 MG/3 ML AMPUL NEB PRN (08:49)
[2017-03-29] MEDS: ENOXAPARIN SODIUM INJ 40 MG/0.4 ML DISP.SYRIN SUBCUT SCH (10:22)
[2017-03-29] MEDS: LEVOFLOXACIN 750 MG/D5W RTU 750 MG/150 ML RTUPB IV SCH (10:22)
[2017-03-29] MEDS: CALCIUM CARBONATE 250 MG/VITAMIN D3 125 UNIT TABLET PO SCH (10:23)
[2017-03-29] MEDS: SITAGLIPTIN PHOSPHATE 50 MG TABLET PO SCH ×2 (10:23→17:38)
[2017-03-29] MEDS: ROPINIROLE HCL 2 MG TABLET PO SCH ×2 (10:23→17:38)
[2017-03-29] MEDS: LACTULOSE SYRUP 20 GM/30 ML UDCUP PO PRN ×2 (10:23→17:50)
[2017-03-29] MEDS: AMLODIPINE BESYLATE 10 MG TABLET PO SCH (10:23)
[2017-03-29] MEDS: TOLTERODINE TARTRATE 1 MG TABLET PO SCH ×2 (10:24→21:56)
[2017-03-29] MEDS: GABAPENTIN 100 MG CAPSULE PO SCH ×2 (10:24→21:56)
[2017-03-29] MEDS: FAMOTIDINE 20 MG TABLET PO SCH ×2 (10:24→21:56)
[2017-03-29] MEDS: LOSARTAN POTASSIUM 50 MG TABLET PO SCH (10:24)
--- NOTE | 2017-03-29 10:24 | PDOC PROGRESS REPORT ---
Subjective Progress Note for:: 03/29/17 Subjective:: Patient denies any complaints. Physical Exam Vital Signs: Temp Pulse Resp BP Pulse Ox 98.1 F 81 24 H 140/64 H 98 03/29/17 07:25 03/29/17 08:49 03/29/17 09:00 03/29/17 07:25 03/29/17 09:00 Intake & Output 03/28/17 03/29/17 03/30/17 06:59 06:59 06:59 Intake Total 1009 1312 Output Total 1150 1200 Balance -141 112 Weight 90.8 kg 91.6 kg General appearance: PRESENT: no acute distress Eye exam: PRESENT: conjunctiva pink. ABSENT: scleral icterus Mouth exam: PRESENT: moist, tongue midline Neck exam: ABSENT: JVD Respiratory exam: PRESENT: rhonchi - Coarse rhonchi bilaterally.. ABSENT: rales , wheezes Cardiovascular exam: PRESENT: RRR. ABSENT: diastolic murmur, rubs, systolic murmur GI/Abdominal exam: PRESENT: normal bowel sounds, soft. ABSENT: distended, guarding, mass, organolmegaly, rebound, tenderness Extremities exam: ABSENT: calf tenderness, clubbing, pedal edema Neurological exam: PRESENT: alert, awake, oriented to person, oriented to place , oriented to time, oriented to situation, CN II-XII grossly intact. ABSENT: motor sensory deficit Psychiatric exam: PRESENT: appropriate affect Skin exam: PRESENT: dry, intact, warm. ABSENT: cyanosis, rash Results Laboratory Results: 03/29/17 04:49 03/29/17 04:49 03/29/17 03/29/17 04:49 04:49 WBC 12.8 H RBC 3.02 L Hgb 8.6 L Hct 26.8 L MCV 89 MCH 28.6 MCHC 32.3 RDW 16.6 H Plt Count 338 Seg Neutrophils % 79.3 H Lymphocytes % 7.7 L Monocytes % 11.7 Eosinophils % 0.4 Basophils % 0.9 Absolute Neutrophils 10.1 H Absolute Lymphocytes 1.0 Absolute Monocytes 1.5 H Absolute Eosinophils 0.0 Absolute Basophils 0.1 Sodium 141.4 Potassium 4.3 Chloride 102 Carbon Dioxide 34 H Anion Gap 5 BUN 12 Creatinine 0.57 Est GFR ( Amer) > 60 Est GFR (Non-Af Amer) > 60 Glucose 142 H Calcium 8.9 03/27/17 02:38 NT-Pro-B Natriuret Pep 3040 H Impressions: Chest X-Ray 03/25/17 12:01 IMPRESSION: Anterior right upper lobe pneumonia. KUB X-Ray 03/25/17 15:22 IMPRESSION: Nasogastric tube tip and side port in the stomach Assessment & Plan - Diagnosis (1) Aspiration pneumonia due to regurgitated gastric secretions Qualifiers: Laterality: right Lung location: upper lobe of lung Qualified Code(s): J69.0 - Pneumonitis due to inhalation of food and vomit Is this a current diagnosis for this admission?: Yes Plan: Patient has what appears to be right middle lobe pneumonia secondary to aspiration. Will continue with Levaquin. Will also continue oxygen and nebulizers as needed. Patient is still requiring BiPAP intermittently. Growing E. coli from blood cultures (2) Diabetes mellitus Is this a current diagnosis for this admission?: Yes Plan: We will cover with sliding scale insulin. (3) Dementia Is this a current diagnosis for this admission?: Yes Plan: Patient has mild dementia but is alert today. (4) Acute encephalopathy Is this a current diagnosis for this admission?: Yes Plan: Most likely secondary to the underlying infection. It has improved (5) HLD (hyperlipidemia) Qualifiers: Hyperlipidemia type: unspecified Qualified Code(s): E78.5 - Hyperlipidemia , unspecified Is this a current diagnosis for this admission?: Yes (6) HTN (hypertension) Qualifiers: Hypertension type: essential hypertension Qualified Code(s): I10 - Essential (primary) hypertension Is this a current diagnosis for this admission?: Yes (7) Hypokalemia Is this a current diagnosis for this admission?: Yes Plan: Resolved (8) Neuropathy Is this a current diagnosis for this admission?: Yes Plan: Patient had complains of bilateral foot pain that suggestive of peripheral neuropathy. Will continue her on gabapentin. (9) Optic neuritis Is this a current diagnosis for this admission?: Yes Plan: Patient was diagnosed with optic neuritis as an outpatient. We will get a head CT along with orbital and sella CT. - Time Time Spent with patient: 25-34 minutes - Inpatient Certification Medical Necessity: Need for IV Antibiotics
[2017-03-29] MEDS: POTASSIUM CHLORIDE 10 MEQ TABLET.SA PO SCH ×2 (10:25→17:18)
[2017-03-29] MEDS: ANASTROZOLE 1 MG TABLET PO SCH (10:25)
--- NOTE | 2017-03-29 14:51 | RADIOLOGY REPORT (SQ) ---
EXAM DESCRIPTION: CT HEAD WITH COMPLETED DATE/TIME: 03/29/2017 2:31 pm REASON FOR STUDY: optic neuritis COMPARISON: 03/13/2017 TECHNIQUE: Axial images acquired through the brain with intravenous contrast. Images reviewed with b one, brain and subdural windows. Images stored on PACS. All CT scanners at this facility use dose modulation, iterative reconstruction, and/or weight based d osing when appropriate to reduce radiation dose to as low as reasonably achievable (ALARA). [facility]: Dose Right [facility]: CareDose [facility]: Dose Right [facility]: Teradose 4D [facility]: [facility] CONTRAST TYPE AND DOSE: contrast/concentration: Isovue 370.00 mg/ml; Total Contrast Delivered: 50.0 ml; Total Saline Delivered: 55.0 ml RENAL FUNCTION: BUN 12 creatinine 0.6 RADIATION DOSE: Up-to-date CT equipment and radiation dose reduction techniques were employed. CTDIv ol: 14.3 - 49.0 mGy. DLP: 993 mGy-cm.. LIMITATIONS: None. FINDINGS: VENTRICLES: Prominent. CEREBRUM: No masses. No hemorrhage. No midline shift. Areas of low density in the white matter mos t likely due to chronic micro-vascular ischemic change. No evidence for acute infarction. No enhanci ng lesions. CEREBELLUM: No masses. No hemorrhage. No alteration of density. No evidence for acute infarction. N o enhancing lesions. EXTRAAXIAL SPACES: Age-related involutional change. No fluid collections. No masses. ORBITS AND GLOBE: No intra- or extraconal masses. Normal contour of globe without masses. CALVARIUM: No fracture. PARANASAL SINUSES: No fluid or mucosal thickening. SOFT TISSUES: No mass or hematoma. OTHER: No other significant finding. IMPRESSION: CHRONIC CHANGES OF ATROPHY AND MICROVASCULAR ISCHEMIA. NO ACUTE PROCESS. EVIDENCE OF ACUTE STROKE: NO. TECHNICAL DOCUMENTATION: JOB ID: [id number] Quality ID # [id number]: Final reports with documentation of one or more dose reduction techniques (e.g., Au tomated exposure control, adjustment of the mA and/or kV according to patient size, use of iterative reconstruction technique) 2010 [employer]- All Rights Reserved
--- NOTE | 2017-03-29 15:03 | RADIOLOGY REPORT (SQ) ---
EXAM DESCRIPTION: CT ORBIT/SELLA WITH COMPLETED DATE/TIME: 03/29/2017 2:31 pm REASON FOR STUDY: optic neuritis COMPARISON: CT facial bones 01/19/2012 CT brain 03/09/2010, 01/19/2012, 01/07/2014, 03/29/2017 TECHNIQUE: Post contrast images through the orbits windowed for bone and soft tissue. Additional co ivette and sagittal reconstructed images reviewed. All images stored on PACS. All CT scanners at this facility use dose modulation, iterative reconstruction, and/or weight based d osing when appropriate to reduce radiation dose to as low as reasonably achievable (ALARA). [facility]: Dose Right [facility]: CareDose [facility]: Dose Right [facility]: Teradose 4D [facility]: [employer] CONTRAST TYPE AND DOSE: 15 mL Isovue 370- low osmolar. RENAL FUNCTION: Creatinine 0.6 RADIATION DOSE: 14.3 mGy . LIMITATIONS: None. FINDINGS: FACIAL BONES: Old bilateral nasal bone fractures. No acute facial fractures. ORBITS: Intact. No fracture. Symmetric intact globes and retroorbital soft tissues. Globes are pos t cataract surgery. Slight asymmetric prominence of the right superior ophthalmic vein is present si milar compared to multiple previous studies. This is of doubtful clinical significance. PARANASAL SINUSES: Clear. No significant mucosal thickening, mass or fluid. SOFT TISSUES: No mass or edema. No abnormal enhancement. No CT evidence of acute sinusitis. 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 IMPRESSION: NORMAL STUDY. TECHNICAL DOCUMENTATION: JOB ID: [id number] Quality ID # [id number]: Final reports with documentation of one or more dose reduction techniques (e.g., Au tomated exposure control, adjustment of the mA and/or kV according to patient size, use of iterative reconstruction technique) 2010 [employer]- All Rights Reserved
[2017-03-29] MEDS: DONEPEZIL HCL 5 MG TABLET PO SCH (21:55)
[2017-03-29] MEDS: ATORVASTATIN CALCIUM 20 MG TABLET PO SCH (21:56)
[2017-03-30 05:47] LABS: ANION GAP 8 (5-19); BLOOD UREA NITROGEN 9 mg/dL (7-20); CARBON DIOXIDE 32 mmol/L (22-30); CHLORIDE 99 mmol/L (98-107); CREATININE RESULT 0.49 mg/dL (0.52-1.25); GLUCOSE 141 mg/dL (75-110); POTASSIUM 4.2 mmol/L (3.6-5.0); SODIUM 139.2 mmol/L (137-145)
[2017-03-30 05:54] LABS: HEMATOCRIT 28.1 % (36.0-47.0); HEMOGLOBIN 9.1 g/dL (12.0-15.5); HGB HCT DIFFERENCE -0.8; MEAN CORPUSCULAR HEMOGLOBIN 28.1 pg (27.0-33.4); MEAN CORPUSCULAR HGB CONC 32.3 g/dL (32.0-36.0); MEAN CORPUSCULAR VOLUME 87 fl (80-97); RED BLOOD COUNT 3.23 10^6/uL (3.72-5.28); RED CELL DISTRIBUTION WIDTH 16.4 % (11.5-14.0); WHITE BLOOD COUNT 12.9 10^3/uL (4.0-10.5)
[2017-03-30] MEDS: LANSOPRAZOLE 15 MG TAB.RAP.DR PO SCH (06:09)
[2017-03-30 07:03] LABS: BASOPHILS % (MANUAL) 0 % (0-2); EOSINOPHILS % (MANUAL) 0 % (0-6); LYMPHOCYTES % (MANUAL) 6 % (13-45); TOTAL CELLS COUNTED 100
[2017-03-30 07:04] LABS: ANISOCYTOSIS 1+; HYPOCHROMASIA SLIGHT; POLYCHROMASIA SLIGHT
[2017-03-30 07:05] LABS: TARGET CELLS SLIGHT
[2017-03-30] MEDS: POTASSIUM CHLORIDE 10 MEQ TABLET.SA PO SCH ×2 (10:18→18:05)
[2017-03-30] MEDS: CALCIUM CARBONATE 250 MG/VITAMIN D3 125 UNIT TABLET PO SCH (10:18)
[2017-03-30] MEDS: ENOXAPARIN SODIUM INJ 40 MG/0.4 ML DISP.SYRIN SUBCUT SCH (10:18)
[2017-03-30] MEDS: GABAPENTIN 100 MG CAPSULE PO SCH ×2 (10:19→21:31)
[2017-03-30] MEDS: LOSARTAN POTASSIUM 50 MG TABLET PO SCH (10:19)
[2017-03-30] MEDS: TOLTERODINE TARTRATE 1 MG TABLET PO SCH ×2 (10:19→21:31)
[2017-03-30] MEDS: FAMOTIDINE 20 MG TABLET PO SCH ×2 (10:19→21:31)
[2017-03-30] MEDS: ROPINIROLE HCL 2 MG TABLET PO SCH ×2 (10:20→18:05)
[2017-03-30] MEDS: ANASTROZOLE 1 MG TABLET PO SCH (10:20)
[2017-03-30] MEDS: SITAGLIPTIN PHOSPHATE 50 MG TABLET PO SCH ×2 (10:20→18:05)
[2017-03-30] MEDS: AMLODIPINE BESYLATE 10 MG TABLET PO SCH (10:20)
[2017-03-30] MEDS: LEVOFLOXACIN 750 MG/D5W RTU 750 MG/150 ML RTUPB IV SCH (10:27)
--- NOTE | 2017-03-30 11:57 | PDOC PROGRESS REPORT ---
Subjective Progress Note for:: 03/30/17 Subjective:: Patient reports he is doing better. He denies shortness of breath, chills or fever, nausea or vomiting, nor diarrhea. Patient noted with increasing edema on the left hand and wrist as well as the forearm. Mild edema noted on the right side. Patient reports pain on the wrist. Physical Exam Vital Signs: Temp Pulse Resp BP Pulse Ox 99.1 F 79 22 H 149/57 H 92 03/30/17 08:44 03/30/17 08:44 03/30/17 08:44 03/30/17 08:44 03/30/17 08:44 Intake & Output 03/29/17 03/30/17 03/31/17 06:59 06:59 06:59 Intake Total 1312 710 Output Total 1200 1250 Balance 112 -540 Weight 91.6 kg 91 kg General appearance: PRESENT: no acute distress, cooperative Eye exam: PRESENT: EOMI Mouth exam: PRESENT: moist, neck supple Neck exam: ABSENT: JVD Respiratory exam: PRESENT: rhonchi - Bilateral, unlabored. ABSENT: wheezes Cardiovascular exam: PRESENT: RRR. ABSENT: gallop GI/Abdominal exam: PRESENT: normal bowel sounds, soft. ABSENT: distended - Obese Extremities exam: PRESENT: +1 edema - Left upper extremity more than the right Neurological exam: PRESENT: alert, awake Skin exam: PRESENT: dry, warm. ABSENT: cyanosis Results Laboratory Results: 03/30/17 05:05 03/30/17 05:05 03/30/17 03/30/17 05:05 05:05 WBC 12.9 H RBC 3.23 L Hgb 9.1 L Hct 28.1 L MCV 87 MCH 28.1 MCHC 32.3 RDW 16.4 H Plt Count 343 Seg Neutrophils % Not Reportable Lymphocytes % Not Reportable Monocytes % Not Reportable Eosinophils % Not Reportable Basophils % Not Reportable Absolute Neutrophils Not Reportable Absolute Lymphocytes Not Reportable Absolute Monocytes Not Reportable Absolute Eosinophils Not Reportable Absolute Basophils Not Reportable Sodium 139.2 Potassium 4.2 Chloride 99 Carbon Dioxide 32 H Anion Gap 8 BUN 9 Creatinine 0.49 L Est GFR ( Amer) > 60 Est GFR (Non-Af Amer) > 60 Glucose 141 H Calcium 9.0 03/27/17 02:38 NT-Pro-B Natriuret Pep 3040 H Impressions: Chest X-Ray 03/25/17 12:01 IMPRESSION: Anterior right upper lobe pneumonia. KUB X-Ray 03/25/17 15:22 IMPRESSION: Nasogastric tube tip and side port in the stomach Head CT 03/29/17 00:00 IMPRESSION: CHRONIC CHANGES OF ATROPHY AND MICROVASCULAR ISCHEMIA. NO ACUTE PROCESS. EVIDENCE OF ACUTE STROKE: NO. Orbit CT 03/29/17 00:00 IMPRESSION: NORMAL STUDY. Assessment & Plan - Diagnosis (1) Sepsis Qualifiers: Sepsis type: sepsis due to unspecified organism Qualified Code(s): A41.9 - Sepsis, unspecified organism Is this a current diagnosis for this admission?: Yes (2) Aspiration pneumonia due to regurgitated gastric secretions Qualifiers: Laterality: right Lung location: upper lobe of lung Qualified Code(s): J69.0 - Pneumonitis due to inhalation of food and vomit Is this a current diagnosis for this admission?: Yes (3) Metabolic encephalopathy Is this a current diagnosis for this admission?: Yes (4) Anemia of chronic disease Is this a current diagnosis for this admission?: Yes (5) Dementia Qualifiers: Dementia type: unspecified type Dementia behavioral disturbance: without behavioral disturbance Qualified Code(s): F03.90 - Unspecified dementia without behavioral disturbance Is this a current diagnosis for this admission?: Yes (6) Diabetes mellitus Qualifiers: Diabetes mellitus type: type 2 Diabetes mellitus complication status: with unspecified complications Diabetes mellitus long term care pharmacist insulin use: with long term care pharmacist use Qualified Code(s): E11.8 - Type 2 diabetes mellitus with unspecified complications; Z79.4 - exterminator (current) use of insulin; Z79.4 - penitentiary ( current) use of insulin; Z79.4 - exterminator (current) use of insulin; Z79.4 - exterminator (current) use of insulin Is this a current diagnosis for this admission?: Yes (7) Neuropathy Is this a current diagnosis for this admission?: Yes (8) Optic neuritis Is this a current diagnosis for this admission?: Yes (9) HLD (hyperlipidemia) Qualifiers: Hyperlipidemia type: unspecified Qualified Code(s): E78.5 - Hyperlipidemia , unspecified Is this a current diagnosis for this admission?: Yes (10) HTN (hypertension) Qualifiers: Hypertension type: essential hypertension Qualified Code(s): I10 - Essential (primary) hypertension Is this a current diagnosis for this admission?: Yes - Time Time Spent with patient: 25-34 minutes - Plan Summary Plan Summary: Obtain x-ray of the extremity. Continue antibiotics. Increase activity and begin physical therapy. Continue other medications and supportive care. Resume Synthroid.
[2017-03-30] MEDS: IPRATROPIUM/ALBUTEROL 0.5-2.5 MG/3 ML AMPUL NEB PRN (13:45)
--- NOTE | 2017-03-30 18:37 | RADIOLOGY REPORT (SQ) ---
EXAM DESCRIPTION: WRIST LEFT 2 VIEWS COMPLETED DATE/TIME: 03/30/2017 6:10 pm REASON FOR STUDY: wrist swelling COMPARISON: None. NUMBER OF VIEWS: Two views. TECHNIQUE: AP and lateral radiographic images acquired of the left wrist. LIMITATIONS: None. FINDINGS: MINERALIZATION: Osteopenia. BONES: No fracture is seen. On the lateral view erosions can be seen at the 1st carpometacarpal join t. SOFT TISSUES: No soft tissue swelling. No foreign body. OTHER: No other significant finding. IMPRESSION: Cannot exclude an inflammatory arthritis at 1st carpometacarpal joint. TECHNICAL DOCUMENTATION: JOB ID: [id number] 1903 [employer]- All Rights Reserved
[2017-03-30] MEDS: DONEPEZIL HCL 5 MG TABLET PO SCH (21:31)
[2017-03-30] MEDS: ATORVASTATIN CALCIUM 20 MG TABLET PO SCH (21:31)
[2017-03-31] MEDS: LANSOPRAZOLE 15 MG TAB.RAP.DR PO SCH (05:25)
[2017-03-31] MEDS ORDERED: (PENDING PHARMACY ID) (Levothyroxine Sodium [Synthroid] 137 MCG) PO SCH (08:00)
[2017-03-31] MEDS: LEVOTHYROXINE SODIUM 0.112 MG TABLET PO SCH (08:07)
[2017-03-31] MEDS: CALCIUM CARBONATE 250 MG/VITAMIN D3 125 UNIT TABLET PO SCH (08:07)
[2017-03-31] MEDS: LEVOTHYROXINE SODIUM 0.025 MG TABLET PO SCH (08:07)
[2017-03-31] MEDS: LOSARTAN POTASSIUM 50 MG TABLET PO SCH (09:41)
[2017-03-31] MEDS: POTASSIUM CHLORIDE 10 MEQ TABLET.SA PO SCH ×2 (09:41→17:19)
[2017-03-31] MEDS: TOLTERODINE TARTRATE 1 MG TABLET PO SCH ×2 (09:42→21:29)
[2017-03-31] MEDS: AMLODIPINE BESYLATE 10 MG TABLET PO SCH (09:42)
[2017-03-31] MEDS: ROPINIROLE HCL 2 MG TABLET PO SCH ×2 (09:42→17:20)
[2017-03-31] MEDS: GABAPENTIN 100 MG CAPSULE PO SCH ×2 (09:42→21:29)
[2017-03-31] MEDS: FAMOTIDINE 20 MG TABLET PO SCH ×2 (09:43→21:29)
[2017-03-31] MEDS: SITAGLIPTIN PHOSPHATE 50 MG TABLET PO SCH ×2 (09:43→17:19)
[2017-03-31] MEDS: ANASTROZOLE 1 MG TABLET PO SCH (09:43)
[2017-03-31] MEDS: ENOXAPARIN SODIUM INJ 40 MG/0.4 ML DISP.SYRIN SUBCUT SCH (09:44)
[2017-03-31] MEDS: LEVOFLOXACIN 750 MG/D5W RTU 750 MG/150 ML RTUPB IV SCH (09:51)
--- NOTE | 2017-03-31 11:51 | PDOC PROGRESS REPORT ---
Subjective Progress Note for:: 03/31/17 Subjective:: Patient is doing well. No reported diarrhea, in particular spikes, worsening respirations, nausea or vomiting, nor any pain and discomfort. Left upper extremity edema persist. Patient's breathing reportedly back to baseline. Physical Exam Vital Signs: Temp Pulse Resp BP Pulse Ox 98.8 F 72 22 H 144/46 H 95 03/31/17 07:54 03/31/17 07:54 03/31/17 07:54 03/31/17 07:54 03/31/17 07:54 Intake & Output 03/30/17 03/31/17 04/01/17 06:59 06:59 06:59 Intake Total 710 870 Output Total 1250 450 Balance -540 420 Weight 91 kg 91.2 kg General appearance: PRESENT: morbidly obese Head exam: PRESENT: normocephalic Eye exam: PRESENT: EOMI Mouth exam: PRESENT: moist, neck supple Neck exam: ABSENT: JVD Respiratory exam: PRESENT: rhonchi - Bilateral. ABSENT: wheezes Cardiovascular exam: PRESENT: RRR. ABSENT: gallop GI/Abdominal exam: PRESENT: hypoactive bowel sounds, soft. ABSENT: distended - Obese Extremities exam: PRESENT: +1 edema - Left upper extremity, other - Trace pretibial edema, lower extremities Neurological exam: PRESENT: alert, awake Skin exam: PRESENT: dry, warm. ABSENT: cyanosis Results Laboratory Results: 03/30/17 05:05 03/30/17 05:05 03/27/17 02:38 NT-Pro-B Natriuret Pep 3040 H Impressions: Chest X-Ray 03/25/17 12:01 IMPRESSION: Anterior right upper lobe pneumonia. KUB X-Ray 03/25/17 15:22 IMPRESSION: Nasogastric tube tip and side port in the stomach Head CT 03/29/17 00:00 IMPRESSION: CHRONIC CHANGES OF ATROPHY AND MICROVASCULAR ISCHEMIA. NO ACUTE PROCESS. EVIDENCE OF ACUTE STROKE: NO. Orbit CT 03/29/17 00:00 IMPRESSION: NORMAL STUDY. Wrist X-Ray 03/30/17 17:14 IMPRESSION: Cannot exclude an inflammatory arthritis at 1st carpometacarpal joint. Assessment & Plan - Diagnosis (1) Sepsis Qualifiers: Sepsis type: sepsis due to unspecified organism Qualified Code(s): A41.9 - Sepsis, unspecified organism Is this a current diagnosis for this admission?: Yes (2) Aspiration pneumonia due to regurgitated gastric secretions Qualifiers: Laterality: right Lung location: upper lobe of lung Qualified Code(s): J69.0 - Pneumonitis due to inhalation of food and vomit Is this a current diagnosis for this admission?: Yes (3) Metabolic encephalopathy Is this a current diagnosis for this admission?: Yes (4) Anemia of chronic disease Is this a current diagnosis for this admission?: Yes (5) Dementia Qualifiers: Dementia type: unspecified type Dementia behavioral disturbance: without behavioral disturbance Qualified Code(s): F03.90 - Unspecified dementia without behavioral disturbance Is this a current diagnosis for this admission?: Yes (6) Diabetes mellitus Qualifiers: Diabetes mellitus type: type 2 Diabetes mellitus complication status: with unspecified complications Diabetes mellitus skilled nursing insulin use: with skilled nursing use Qualified Code(s): E11.8 - Type 2 diabetes mellitus with unspecified complications; Z79.4 - 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 wrapping 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 (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) use of insulin; Z79.4 - long-term ( current) use of insulin; Z79.4 - candy wrapping 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 (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) 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 of insulin; Z79.4 - candy wrapping 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 (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) 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 of insulin Is this a current diagnosis for this admission?: Yes (7) Neuropathy Is this a current diagnosis for this admission?: Yes (8) Optic neuritis Is this a current diagnosis for this admission?: Yes (9) HLD (hyperlipidemia) Qualifiers: Hyperlipidemia type: unspecified Qualified Code(s): E78.5 - Hyperlipidemia , unspecified Is this a current diagnosis for this admission?: Yes (10) HTN (hypertension) Qualifiers: Hypertension type: essential hypertension Qualified Code(s): I10 - Essential (primary) hypertension Is this a current diagnosis for this admission?: Yes - Time Time Spent with patient: 25-34 minutes - Plan Summary Plan Summary: Continue antibiotics for now. Check a follow-up chest x-ray. Obtain left upper extremity ultrasound. Continue other medications and supportive care.
[2017-03-31] MEDS ORDERED: MELOXICAM 15 MG TABLET PO ONE (11:53)
[2017-03-31] MEDS: IPRATROPIUM/ALBUTEROL 0.5-2.5 MG/3 ML AMPUL NEB PRN (12:21)
--- NOTE | 2017-03-31 13:31 | RADIOLOGY REPORT (SQ) ---
EXAM DESCRIPTION: CHEST SINGLE VIEW COMPLETED DATE/TIME: 03/31/2017 12:38 pm REASON FOR STUDY: Follow-up pneumonia COMPARISON: 03/25/2017 EXAM PARAMETERS: NUMBER OF VIEWS: One view. TECHNIQUE: Single frontal radiographic view of the chest acquired. RADIATION DOSE: NA LIMITATIONS: None. FINDINGS: LUNGS AND PLEURA: Extensive airspace disease is present in both upper lobes and in the lef t lower lobe. The infiltrates on the left have increased since the earlier study. There is slight i mprovement the appearance of the right upper lobe. MEDIASTINUM AND HILAR STRUCTURES: No masses. Contour normal. HEART AND VASCULAR STRUCTURES: Heart normal in size. Normal vasculature. BONES: No acute findings. HARDWARE: None in the chest. OTHER: No other significant finding. IMPRESSION: Multicentric pneumonia. TECHNICAL DOCUMENTATION: JOB ID: [id number]
[2017-03-31] MEDS ORDERED: ACETAMINOPHEN 325 MG TABLET PO PRN (16:23)
[2017-03-31] MEDS: INSULIN LISPRO 100 UNIT/ML 3 ML VIAL SUBCUT PRN (18:40)
[2017-03-31] MEDS: DONEPEZIL HCL 5 MG TABLET PO SCH (21:29)
[2017-03-31] MEDS: ATORVASTATIN CALCIUM 20 MG TABLET PO SCH (21:29)
[2017-04-01] MEDS: LANSOPRAZOLE 15 MG TAB.RAP.DR PO SCH (05:18)
[2017-04-01 05:52] LABS: HEMATOCRIT 26.9 % (36.0-47.0); HEMOGLOBIN 9.1 g/dL (12.0-15.5); HGB HCT DIFFERENCE 0.4; MEAN CORPUSCULAR VOLUME 85 fl (80-97); RED BLOOD COUNT 3.15 10^6/uL (3.72-5.28); RED CELL DISTRIBUTION WIDTH 16.5 % (11.5-14.0); WHITE BLOOD COUNT 7.2 10^3/uL (4.0-10.5)
[2017-04-01] MEDS: LEVOTHYROXINE SODIUM 0.025 MG TABLET PO SCH (08:09)
[2017-04-01] MEDS: CALCIUM CARBONATE 250 MG/VITAMIN D3 125 UNIT TABLET PO SCH (08:09)
[2017-04-01] MEDS: LEVOTHYROXINE SODIUM 0.112 MG TABLET PO SCH (08:09)
--- NOTE | 2017-04-01 08:13 | XCELERA REPORT ---
[address] [address] Upper Extremity Venous Evaluation Name: SANDY DANG Age: 87 yrs Gender: Female : 1930 Patient Status: Inpatient Patient Location: [address] [place], [place] [address] Study Date: 03/31/2017 03:13 PM Procedure: Unilateral duplex scan of the left upper extremity veins was performed, including responses to compression and other maneuvers. Reason For Study: (LEFT) Edema of the upper extremity Ordering Physician: KIMI CONTRERAS Performed By: Deirdre Ng Left Sided Venous Evaluation Normal vessel filling wall to wall, compression and augmentation as well as Colour flow down to the forearm veins. Interpretation Summary No duplex evidence of DVT or obstruction in the left upper extremity. : KIMI CONTRERAS > Elijah Garcia
[2017-04-01] MEDS: SITAGLIPTIN PHOSPHATE 50 MG TABLET PO SCH ×2 (09:29→17:11)
[2017-04-01] MEDS: ROPINIROLE HCL 2 MG TABLET PO SCH ×2 (09:29→17:11)
[2017-04-01] MEDS: TOLTERODINE TARTRATE 1 MG TABLET PO SCH ×2 (09:29→21:35)
[2017-04-01] MEDS: GABAPENTIN 100 MG CAPSULE PO SCH ×2 (09:30→21:35)
[2017-04-01] MEDS: POTASSIUM CHLORIDE 10 MEQ TABLET.SA PO SCH ×2 (09:30→17:11)
[2017-04-01] MEDS: AMLODIPINE BESYLATE 10 MG TABLET PO SCH (09:30)
[2017-04-01] MEDS: LOSARTAN POTASSIUM 50 MG TABLET PO SCH (09:30)
[2017-04-01] MEDS: ANASTROZOLE 1 MG TABLET PO SCH (09:31)
[2017-04-01] MEDS: FAMOTIDINE 20 MG TABLET PO SCH ×2 (09:31→21:36)
[2017-04-01] MEDS: ENOXAPARIN SODIUM INJ 40 MG/0.4 ML DISP.SYRIN SUBCUT SCH (09:32)
[2017-04-01] MEDS: LEVOFLOXACIN 750 MG/D5W RTU 750 MG/150 ML RTUPB IV SCH (09:33)
--- NOTE | 2017-04-01 10:48 | PDOC PROGRESS REPORT ---
Subjective Progress Note for:: 04/01/17 Subjective:: Patient's breathing is about the same no worsening was reported. No reported temperature spikes nor diarrhea. No nausea or vomiting. Patient reports she is doing okay. She voices no complaints at this time. Family does not want her to go to rehabilitation or subacute care. Physical Exam Vital Signs: Temp Pulse Resp BP Pulse Ox 97.8 F 62 20 129/50 H 90 L 04/01/17 08:11 04/01/17 08:11 04/01/17 08:11 04/01/17 08:11 04/01/17 08:11 Intake & Output 03/31/17 04/01/17 04/02/17 06:59 06:59 06:59 Intake Total 870 1806 Output Total 450 3075 Balance 420 -1269 Weight 91.2 kg 89.9 kg General appearance: PRESENT: cooperative, obese Head exam: PRESENT: normocephalic Eye exam: PRESENT: EOMI Mouth exam: PRESENT: moist, neck supple Neck exam: ABSENT: JVD Respiratory exam: PRESENT: rhonchi. ABSENT: wheezes Cardiovascular exam: PRESENT: RRR. ABSENT: gallop GI/Abdominal exam: PRESENT: hypoactive bowel sounds, soft. ABSENT: distended - Obese Extremities exam: PRESENT: other - Left upper extremity edema +1 is less Neurological exam: PRESENT: alert, awake Skin exam: PRESENT: dry, warm. ABSENT: cyanosis Results Laboratory Results: 04/01/17 05:00 03/30/17 05:05 04/01/17 05:00 WBC 7.2 RBC 3.15 L Hgb 9.1 L Hct 26.9 L MCV 85 MCH 29.0 MCHC 34.0 RDW 16.5 H Plt Count 428 03/27/17 02:38 NT-Pro-B Natriuret Pep 3040 H Impressions: KUB X-Ray 03/25/17 15:22 IMPRESSION: Nasogastric tube tip and side port in the stomach Head CT 03/29/17 00:00 IMPRESSION: CHRONIC CHANGES OF ATROPHY AND MICROVASCULAR ISCHEMIA. NO ACUTE PROCESS. EVIDENCE OF ACUTE STROKE: NO. Orbit CT 03/29/17 00:00 IMPRESSION: NORMAL STUDY. Wrist X-Ray 03/30/17 17:14 IMPRESSION: Cannot exclude an inflammatory arthritis at 1st carpometacarpal joint. Chest X-Ray 03/31/17 00:00 IMPRESSION: Multicentric pneumonia. Assessment & Plan - Diagnosis (1) Sepsis Qualifiers: Sepsis type: sepsis due to unspecified organism Qualified Code(s): A41.9 - Sepsis, unspecified organism Is this a current diagnosis for this admission?: Yes (2) Aspiration pneumonia due to regurgitated gastric secretions Qualifiers: Laterality: right Lung location: upper lobe of lung Qualified Code(s): J69.0 - Pneumonitis due to inhalation of food and vomit Is this a current diagnosis for this admission?: Yes (3) Metabolic encephalopathy Is this a current diagnosis for this admission?: Yes (4) Anemia of chronic disease Is this a current diagnosis for this admission?: Yes (5) Dementia Qualifiers: Dementia type: unspecified type Dementia behavioral disturbance: without behavioral disturbance Qualified Code(s): F03.90 - Unspecified dementia without behavioral disturbance Is this a current diagnosis for this admission?: Yes (6) Diabetes mellitus Qualifiers: Diabetes mellitus type: type 2 Diabetes mellitus complication status: with unspecified complications Diabetes mellitus terminal carman insulin use: with terminal carman use Qualified Code(s): E11.8 - Type 2 diabetes mellitus with unspecified complications; Z79.4 - superintendent marine oil terminal (current) use of insulin; Z79.4 - [facility] ( current) use of insulin; Z79.4 - [facility] (current) use of insulin; Z79.4 - superintendent marine oil terminal (current) use of insulin Is this a current diagnosis for this admission?: Yes (7) Neuropathy Is this a current diagnosis for this admission?: Yes (8) Optic neuritis Is this a current diagnosis for this admission?: Yes (9) HLD (hyperlipidemia) Qualifiers: Hyperlipidemia type: unspecified Qualified Code(s): E78.5 - Hyperlipidemia , unspecified Is this a current diagnosis for this admission?: Yes (10) HTN (hypertension) Qualifiers: Hypertension type: essential hypertension Qualified Code(s): I10 - Essential (primary) hypertension Is this a current diagnosis for this admission?: Yes - Time Time Spent with patient: 25-34 minutes - Plan Summary Plan Summary: Continue current antibiotics. We are going to begin the patient on Lasix and recheck chest x-ray in 48 hours. In the meantime begin physical therapy. Continue supportive care. We will try to arrange for home health if family agrees. Continue supportive care. Recheck electrolytes in the morning.
[2017-04-01] MEDS ORDERED: FUROSEMIDE INJ/PF 40 MG/4 ML SDV IV ONE (11:30)
[2017-04-01] MEDS: ATORVASTATIN CALCIUM 20 MG TABLET PO SCH (21:36)
[2017-04-01] MEDS: DONEPEZIL HCL 5 MG TABLET PO SCH (21:36)
[2017-04-02 05:27] LABS: ANION GAP 7 (5-19); BLOOD UREA NITROGEN 10 mg/dL (7-20); CALCIUM 8.5 mg/dL (8.4-10.2); CARBON DIOXIDE 31 mmol/L (22-30); CHLORIDE 96 mmol/L (98-107); CREATININE RESULT 0.62 mg/dL (0.52-1.25); GLUCOSE 101 mg/dL (75-110); POTASSIUM 4.9 mmol/L (3.6-5.0); SODIUM 133.8 mmol/L (137-145)
[2017-04-02] MEDS: LANSOPRAZOLE 15 MG TAB.RAP.DR PO SCH (05:57)
[2017-04-02] MEDS: TOLTERODINE TARTRATE 1 MG TABLET PO SCH ×2 (09:50→22:35)
[2017-04-02] MEDS: CALCIUM CARBONATE 250 MG/VITAMIN D3 125 UNIT TABLET PO SCH (09:50)
[2017-04-02] MEDS: AMLODIPINE BESYLATE 10 MG TABLET PO SCH (09:51)
[2017-04-02] MEDS: FAMOTIDINE 20 MG TABLET PO SCH ×2 (09:51→22:36)
[2017-04-02] MEDS: POTASSIUM CHLORIDE 10 MEQ TABLET.SA PO SCH ×2 (09:51→19:01)
[2017-04-02] MEDS: GABAPENTIN 100 MG CAPSULE PO SCH ×2 (09:51→22:35)
[2017-04-02] MEDS: LOSARTAN POTASSIUM 50 MG TABLET PO SCH (09:51)
[2017-04-02] MEDS: FUROSEMIDE INJ/PF 40 MG/4 ML SDV IV SCH (09:52)
[2017-04-02] MEDS: LEVOTHYROXINE SODIUM 0.112 MG TABLET PO SCH (09:52)
[2017-04-02] MEDS: LEVOTHYROXINE SODIUM 0.025 MG TABLET PO SCH (09:52)
[2017-04-02] MEDS: SITAGLIPTIN PHOSPHATE 50 MG TABLET PO SCH ×2 (09:52→19:02)
[2017-04-02] MEDS: ENOXAPARIN SODIUM INJ 40 MG/0.4 ML DISP.SYRIN SUBCUT SCH (09:53)
[2017-04-02] MEDS: ROPINIROLE HCL 2 MG TABLET PO SCH ×2 (10:02→19:02)
[2017-04-02] MEDS: ANASTROZOLE 1 MG TABLET PO SCH (10:03)
--- NOTE | 2017-04-02 11:30 | PDOC PROGRESS REPORT ---
Subjective Progress Note for:: 04/02/17 Subjective:: Patient respiration is better. Patient denies any shortness of breath, proximal nocturnal dyspnea, chest pain, diarrhea nausea or vomiting. No temperature spikes reported. Patient is not on oxygen at home. Physical Exam Vital Signs: Temp Pulse Resp BP Pulse Ox 98.1 F 70 20 141/53 H 95 04/02/17 07:32 04/02/17 07:32 04/02/17 07:32 04/02/17 07:32 04/02/17 07:32 Intake & Output 04/01/17 04/02/17 04/03/17 06:59 06:59 06:59 Intake Total 1806 2777 Output Total 3075 4050 Balance -1269 -1273 Weight 89.9 kg 88.9 kg General appearance: PRESENT: no acute distress, cooperative Head exam: PRESENT: normocephalic Eye exam: PRESENT: EOMI Mouth exam: PRESENT: moist, neck supple Neck exam: ABSENT: JVD Respiratory exam: PRESENT: rhonchi - Few bilateral. ABSENT: wheezes Cardiovascular exam: PRESENT: RRR. ABSENT: gallop GI/Abdominal exam: PRESENT: hypoactive bowel sounds, soft. ABSENT: distended Extremities exam: ABSENT: pedal edema Neurological exam: PRESENT: alert, awake Skin exam: PRESENT: dry, warm. ABSENT: cyanosis Results Laboratory Results: 04/01/17 05:00 04/02/17 04:49 04/02/17 04:49 Sodium 133.8 L Potassium 4.9 Chloride 96 L Carbon Dioxide 31 H Anion Gap 7 BUN 10 Creatinine 0.62 Est GFR ( Amer) > 60 Est GFR (Non-Af Amer) > 60 Glucose 101 Calcium 8.5 03/27/17 02:38 NT-Pro-B Natriuret Pep 3040 H Impressions: KUB X-Ray 03/25/17 15:22 IMPRESSION: Nasogastric tube tip and side port in the stomach Head CT 03/29/17 00:00 IMPRESSION: CHRONIC CHANGES OF ATROPHY AND MICROVASCULAR ISCHEMIA. NO ACUTE PROCESS. EVIDENCE OF ACUTE STROKE: NO. Orbit CT 03/29/17 00:00 IMPRESSION: NORMAL STUDY. Wrist X-Ray 03/30/17 17:14 IMPRESSION: Cannot exclude an inflammatory arthritis at 1st carpometacarpal joint. Chest X-Ray 03/31/17 00:00 IMPRESSION: Multicentric pneumonia. Assessment & Plan - Diagnosis (1) Sepsis Qualifiers: Sepsis type: sepsis due to unspecified organism Qualified Code(s): A41.9 - Sepsis, unspecified organism Is this a current diagnosis for this admission?: Yes (2) Aspiration pneumonia due to regurgitated gastric secretions Qualifiers: Laterality: right Lung location: upper lobe of lung Qualified Code(s): J69.0 - Pneumonitis due to inhalation of food and vomit Is this a current diagnosis for this admission?: Yes (3) Metabolic encephalopathy Is this a current diagnosis for this admission?: Yes (4) Anemia of chronic disease Is this a current diagnosis for this admission?: Yes (5) Dementia Qualifiers: Dementia type: unspecified type Dementia behavioral disturbance: without behavioral disturbance Qualified Code(s): F03.90 - Unspecified dementia without behavioral disturbance Is this a current diagnosis for this admission?: Yes (6) Diabetes mellitus Qualifiers: Diabetes mellitus type: type 2 Diabetes mellitus complication status: with unspecified complications Diabetes mellitus prison insulin use: with prison use Qualified Code(s): E11.8 - Type 2 diabetes mellitus with unspecified complications; Z79.4 - tank terminal 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 (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) 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 of insulin; Z79.4 - tank terminal gauger ( current) use of insulin; Z79.4 - tank terminal gauger (current) use of insulin; Z79.4 - intermediate (current) use of insulin Is this a current diagnosis for this admission?: Yes (7) Neuropathy Is this a current diagnosis for this admission?: Yes (8) Optic neuritis Is this a current diagnosis for this admission?: Yes (9) HLD (hyperlipidemia) Qualifiers: Hyperlipidemia type: unspecified Qualified Code(s): E78.5 - Hyperlipidemia , unspecified Is this a current diagnosis for this admission?: Yes (10) HTN (hypertension) Qualifiers: Hypertension type: essential hypertension Qualified Code(s): I10 - Essential (primary) hypertension Is this a current diagnosis for this admission?: Yes - Time Time Spent with patient: 25-34 minutes - Plan Summary Plan Summary: We are going to wean the oxygen. We will transition to oral antibiotics. Patient continues to improve and stable be able to be discharged home in the morning. Continue supportive care. Family does not want patient to go to any facility for subacute care or rehab.
[2017-04-02] MEDS: DONEPEZIL HCL 5 MG TABLET PO SCH (22:35)
[2017-04-02] MEDS: ATORVASTATIN CALCIUM 20 MG TABLET PO SCH (22:36)
[2017-04-03] MEDS: LANSOPRAZOLE 15 MG TAB.RAP.DR PO SCH (06:39)
[2017-04-03] MEDS: LEVOTHYROXINE SODIUM 0.025 MG TABLET PO SCH (09:20)
[2017-04-03] MEDS: CALCIUM CARBONATE 250 MG/VITAMIN D3 125 UNIT TABLET PO SCH (09:20)
[2017-04-03] MEDS: ANASTROZOLE 1 MG TABLET PO SCH (09:21)
[2017-04-03] MEDS: TOLTERODINE TARTRATE 1 MG TABLET PO SCH ×2 (09:21→21:33)
[2017-04-03] MEDS: GABAPENTIN 100 MG CAPSULE PO SCH ×2 (09:24→21:32)
[2017-04-03] MEDS: SITAGLIPTIN PHOSPHATE 50 MG TABLET PO SCH ×2 (09:24→18:37)
[2017-04-03] MEDS: AMLODIPINE BESYLATE 10 MG TABLET PO SCH (09:24)
[2017-04-03] MEDS: FAMOTIDINE 20 MG TABLET PO SCH ×2 (09:24→21:32)
[2017-04-03] MEDS: ROPINIROLE HCL 2 MG TABLET PO SCH ×2 (09:25→18:37)
[2017-04-03] MEDS: POTASSIUM CHLORIDE 10 MEQ TABLET.SA PO SCH ×2 (09:25→18:37)
[2017-04-03] MEDS: LOSARTAN POTASSIUM 50 MG TABLET PO SCH (09:25)
[2017-04-03] MEDS: LEVOTHYROXINE SODIUM 0.112 MG TABLET PO SCH (09:25)
[2017-04-03] MEDS: FUROSEMIDE INJ/PF 40 MG/4 ML SDV IV SCH (09:25)
[2017-04-03] MEDS: ENOXAPARIN SODIUM INJ 40 MG/0.4 ML DISP.SYRIN SUBCUT SCH (09:26)
[2017-04-03] MEDS ORDERED: LEVOFLOXACIN 750 MG TABLET PO SCH (10:00)
--- NOTE | 2017-04-03 10:41 | EKG REPORT ---
SEVERITY:- ABNORMAL ECG - SINUS RHYTHM LEFT AXIS DEVIATION LEFT VENTRICULAR HYPERTROPHY : Confirmed by: Sharron Borrero MD 03-Apr-2017 10:40:28
--- NOTE | 2017-04-03 11:06 | PDOC PROGRESS REPORT ---
Subjective Progress Note for:: 04/03/17 Subjective:: Patient overall improved. However oxygen saturation on room air is low. Reportedly in the 80s. No temperature spikes, respiratory distress, nausea or vomiting, no diarrhea. Physical Exam Vital Signs: Temp Pulse Resp BP Pulse Ox 98.4 F 64 18 133/52 H 97 04/03/17 07:08 04/03/17 07:08 04/03/17 07:08 04/03/17 07:08 04/03/17 07:08 Intake & Output 04/02/17 04/03/17 04/04/17 06:59 06:59 06:59 Intake Total 2777 1530 Output Total 4050 9175 Balance -1273 -2245 Weight 88.9 kg 90.1 kg General appearance: PRESENT: no acute distress, cooperative Head exam: PRESENT: normocephalic Eye exam: PRESENT: EOMI Mouth exam: PRESENT: moist, neck supple Neck exam: ABSENT: JVD Respiratory exam: PRESENT: decreased breath sounds - Bilateral but with poor effort Cardiovascular exam: PRESENT: RRR. ABSENT: gallop GI/Abdominal exam: PRESENT: hypoactive bowel sounds, soft Extremities exam: ABSENT: pedal edema Neurological exam: PRESENT: alert, awake Skin exam: PRESENT: dry, warm. ABSENT: cyanosis Results Laboratory Results: 04/01/17 05:00 04/02/17 04:49 03/27/17 02:38 NT-Pro-B Natriuret Pep 3040 H Impressions: KUB X-Ray 03/25/17 15:22 IMPRESSION: Nasogastric tube tip and side port in the stomach Head CT 03/29/17 00:00 IMPRESSION: CHRONIC CHANGES OF ATROPHY AND MICROVASCULAR ISCHEMIA. NO ACUTE PROCESS. EVIDENCE OF ACUTE STROKE: NO. Orbit CT 03/29/17 00:00 IMPRESSION: NORMAL STUDY. Wrist X-Ray 03/30/17 17:14 IMPRESSION: Cannot exclude an inflammatory arthritis at 1st carpometacarpal joint. Chest X-Ray 03/31/17 00:00 IMPRESSION: Multicentric pneumonia. Assessment & Plan - Diagnosis (1) Sepsis Qualifiers: Sepsis type: sepsis due to unspecified organism Qualified Code(s): A41.9 - Sepsis, unspecified organism Is this a current diagnosis for this admission?: Yes (2) Aspiration pneumonia due to regurgitated gastric secretions Qualifiers: Laterality: right Lung location: upper lobe of lung Qualified Code(s): J69.0 - Pneumonitis due to inhalation of food and vomit Is this a current diagnosis for this admission?: Yes (3) Metabolic encephalopathy Is this a current diagnosis for this admission?: Yes (4) Anemia of chronic disease Is this a current diagnosis for this admission?: Yes (5) Dementia Qualifiers: Dementia type: unspecified type Dementia behavioral disturbance: without behavioral disturbance Qualified Code(s): F03.90 - Unspecified dementia without behavioral disturbance Is this a current diagnosis for this admission?: Yes (6) Diabetes mellitus Qualifiers: Diabetes mellitus type: type 2 Diabetes mellitus complication status: with unspecified complications Diabetes mellitus shelter insulin use: with shelter use Qualified Code(s): E11.8 - Type 2 diabetes mellitus with unspecified complications; Z79.4 - assisted (current) use of insulin; Z79.4 - supervisor intermediates ( current) use of insulin; Z79.4 - supervisor intermediates (current) use of insulin; Z79.4 - supervisor intermediates (current) use of insulin Is this a current diagnosis for this admission?: Yes (7) Neuropathy Is this a current diagnosis for this admission?: Yes (8) Optic neuritis Is this a current diagnosis for this admission?: Yes (9) HLD (hyperlipidemia) Qualifiers: Hyperlipidemia type: unspecified Qualified Code(s): E78.5 - Hyperlipidemia , unspecified Is this a current diagnosis for this admission?: Yes (10) HTN (hypertension) Qualifiers: Hypertension type: essential hypertension Qualified Code(s): I10 - Essential (primary) hypertension Is this a current diagnosis for this admission?: Yes - Time Time Spent with patient: 25-34 minutes - Plan Summary Plan Summary: Continue oral antibiotics. Consult development planner for home oxygen. Repeat chest x-ray. IV Lasix. Continue supportive care.
--- NOTE | 2017-04-03 12:30 | RADIOLOGY REPORT (SQ) ---
EXAM DESCRIPTION: CHEST SINGLE VIEW COMPLETED DATE/TIME: 04/03/2017 12:03 pm REASON FOR STUDY: hypoxia COMPARISON: 03/31/2017 EXAM PARAMETERS: NUMBER OF VIEWS: One view. TECHNIQUE: Single frontal radiographic view of the chest acquired. RADIATION DOSE: NA LIMITATIONS: Patient has made a shallow inspiration FINDINGS: LUNGS AND PLEURA: The previously described multicentric pneumonia appears minimally improv ed with decreasing confluence. Extensive residual changes are identified. MEDIASTINUM AND HILAR STRUCTURES: No masses. Contour normal. HEART AND VASCULAR STRUCTURES: The configuration of the heart mediastinal structures is unchanged. BONES: No acute findings. HARDWARE: None in the chest. OTHER: No other significant finding. IMPRESSION: The previously described multicentric pneumonia appears minimally improved with decreasi ng confluence. Extensive residual changes are identified. Other findings as noted above TECHNICAL DOCUMENTATION: JOB ID: [id number]
[2017-04-03] MEDS: ATORVASTATIN CALCIUM 20 MG TABLET PO SCH (21:33)
[2017-04-03] MEDS: DONEPEZIL HCL 5 MG TABLET PO SCH (21:33)
[2017-04-04] MEDS: LANSOPRAZOLE 15 MG TAB.RAP.DR PO SCH (05:30)
[2017-04-04] MEDS: LEVOTHYROXINE SODIUM 0.112 MG TABLET PO SCH (08:25)
[2017-04-04] MEDS: CALCIUM CARBONATE 250 MG/VITAMIN D3 125 UNIT TABLET PO SCH (08:25)
[2017-04-04] MEDS: LEVOTHYROXINE SODIUM 0.025 MG TABLET PO SCH (08:25)
[2017-04-04] MEDS: INSULIN LISPRO 100 UNIT/ML 3 ML VIAL SUBCUT PRN (08:26)
--- NOTE | 2017-04-04 11:01 | PDOC DISCHARGE SUMMARY ---
General - Admit/Disc Date/PCP Admission Date/Primary Care Provider: 03/25/17 14:48 CORAZON CARRION PA-C Discharge Date: 04/04/17 - Discharge Diagnosis (1) Sepsis Is this a current diagnosis for this admission?: Yes (2) Aspiration pneumonia due to regurgitated gastric secretions Is this a current diagnosis for this admission?: Yes (3) Metabolic encephalopathy Is this a current diagnosis for this admission?: Yes (4) Anemia of chronic disease Is this a current diagnosis for this admission?: Yes (5) Dementia Is this a current diagnosis for this admission?: Yes (6) Diabetes mellitus Is this a current diagnosis for this admission?: Yes (7) Neuropathy Is this a current diagnosis for this admission?: Yes (8) Optic neuritis Is this a current diagnosis for this admission?: Yes (9) HLD (hyperlipidemia) Is this a current diagnosis for this admission?: Yes (10) HTN (hypertension) Is this a current diagnosis for this admission?: Yes - Additional Information Resuscitation Status: Full Code Home Medications: Amlodipine Besylate [Norvasc 10 mg Tablet] 10 mg PO DAILY 03/25/17 Anastrozole [Arimidex 1 mg Tablet] 1 mg PO DAILY 03/25/17 Atorvastatin Calcium [Lipitor 20 mg Tablet] 20 mg PO QHS 03/25/17 Calcium Carbonate/Vitamin D3 [Calcium 500 + Vit D Caplet] 1 tab PO DAILY Donepezil HCl [Aricept] 10 mg PO QHS 03/25/17 Eplerenone [Inspra] 50 mg PO QAM 03/25/17 Ketotifen Fumarate [Refresh] 1 drop OU QIDP PRN 03/25/17 Levothyroxine Sodium [Synthroid] 137 mcg PO QAM 03/25/17 Losartan Potassium [Cozaar 50 mg Tablet] 50 mg PO DAILY 03/25/17 Metformin HCl [Glucophage 500 mg Tablet] 500 mg PO BID 03/25/17 Omeprazole 20 mg PO DAILY 03/25/17 Ropinirole HCl [Requip 2 mg Tablet] 2 mg PO Q12 03/25/17 Sitagliptin Phosphate [Januvia] 50 mg PO BID 03/25/17 Solifenacin Succinate [Vesicare] 10 mg PO DAILY 03/25/17 Levofloxacin [Levaquin 750 mg Tablet] 750 mg PO Q2DAYS #7 tablet 04/04/17 Additional Information: Return to the emergency room if symptoms recur History of Present Illness Patient complains of: Vomiting History of Present Illness: SANDY DANG is a 87 year old female with mild dementia who presented to the emergency room after vomiting. The patient's reports that this morning she woke up she was feeling fine and then she vomited and aspirated. She was having some shortness of breath and cough. She was found to have some hypoxia and some relatively low blood pressures. Chest x-ray shows her to have a right middle lobe consistent with aspiration. Patient has been given Levaquin already in the emergency room. The patient has mild dementia and she denies any chest pain. She does report feeling short of breath and has had a productive cough. She denies having any fevers or chills. She denies any orthopnea PND or lower extremity edema. For details please refer to history and physical examination performed by the admitting physician. Hospital Course Hospital Course: The patient was admitted to [facility]. The patient was placed on supplemental oxygen. Patient reportedly aspirated and therefore started on antibiotics. Chest x-ray showed infiltrates suggestive of pneumonia. Nasogastric tube was placed. Patient was kept n.p.o. given laxatives and patient did have bowel movement. Bronchodilators were likewise given cultures were performed showing E. coli in the blood. Antibiotics were therefore tailored towards culture result. Subsequently the patient improved. Patient nasogastric tube was discontinued and patient was tried on oral intake and did well. Course was noted for swelling on the upper extremity where an x-ray of the wrist on the left suggestive of inflammation. Patient was given anti-inflammatory and it started to improve. Ultrasound was likewise performed showing no deep venous thrombosis. Patient still requires oxygen and therefore started on diuretics. Follow-up chest x-ray shows persistence of the infiltrate but is improving. The patient then was transitioned to oral antibiotic after a week of IV antibiotics. Patient had significant debility and the recommendation of subacute rehabilitation was made to the family if not long-term care but refused totally. Other workups include head CT and orbital CT scan which did not reveal any acute abnormality. The rest of the hospital stay is unremarkable. Physical Exam Vital Signs: Temp Pulse Resp BP Pulse Ox 98.4 F 63 18 125/36 L 100 04/04/17 07:35 04/04/17 07:35 04/04/17 07:35 04/04/17 07:35 04/04/17 07:35 Intake & Output 04/03/17 04/04/17 04/05/17 06:59 06:59 06:59 Intake Total 1530 2109 Output Total 3775 4000 Balance -2245 -1897 Weight 90.1 kg 85.2 kg General appearance: PRESENT: no acute distress, cooperative, other - Nasal cannula oxygen Head exam: PRESENT: normocephalic Eye exam: PRESENT: EOMI Mouth exam: PRESENT: moist, neck supple Neck exam: ABSENT: JVD Respiratory exam: PRESENT: rhonchi - Few bilateral Cardiovascular exam: PRESENT: RRR. ABSENT: gallop GI/Abdominal exam: PRESENT: soft. ABSENT: distended, tenderness Extremities exam: PRESENT: other - Trace edema Neurological exam: PRESENT: alert, awake Skin exam: PRESENT: dry, warm. ABSENT: cyanosis Results Laboratory Results: 04/01/17 05:00 04/02/17 04:49 03/27/17 02:38 NT-Pro-B Natriuret Pep 3040 H Impressions: KUB X-Ray 03/25/17 15:22 IMPRESSION: Nasogastric tube tip and side port in the stomach Head CT 03/29/17 00:00 IMPRESSION: CHRONIC CHANGES OF ATROPHY AND MICROVASCULAR ISCHEMIA. NO ACUTE PROCESS. EVIDENCE OF ACUTE STROKE: NO. Orbit CT 03/29/17 00:00 IMPRESSION: NORMAL STUDY. Wrist X-Ray 03/30/17 17:14 IMPRESSION: Cannot exclude an inflammatory arthritis at 1st carpometacarpal joint. Chest X-Ray 04/03/17 00:00 IMPRESSION: The previously described multicentric pneumonia appears minimally improved with decreasing confluence. Extensive residual changes are identified. Other findings as noted above Qualifiers PATEINT BEING DISCHARGED WITH ANY OF THE FOLLOWING DIAGNOSIS?: No Plan Discharge Plan: Follow-up with primary care physician in 1 week. Time Spent: Less than 30 Minutes
[2017-04-04] MEDS: ANASTROZOLE 1 MG TABLET PO SCH (12:06)
[2017-04-04] MEDS: ENOXAPARIN SODIUM INJ 40 MG/0.4 ML DISP.SYRIN SUBCUT SCH (12:07)
[2017-04-04] MEDS: FAMOTIDINE 20 MG TABLET PO SCH (12:08)
[2017-04-04] MEDS: SITAGLIPTIN PHOSPHATE 50 MG TABLET PO SCH (12:08)
[2017-04-04] MEDS: LOSARTAN POTASSIUM 50 MG TABLET PO SCH (12:08)
[2017-04-04] MEDS: GABAPENTIN 100 MG CAPSULE PO SCH (12:09)
[2017-04-04] MEDS: AMLODIPINE BESYLATE 10 MG TABLET PO SCH (12:09)
[2017-04-04] MEDS: TOLTERODINE TARTRATE 1 MG TABLET PO SCH (12:09)
[2017-04-04] MEDS: POTASSIUM CHLORIDE 10 MEQ TABLET.SA PO SCH (12:09)
[2017-04-04] MEDS: ROPINIROLE HCL 2 MG TABLET PO SCH (12:09)
[2017-04-04] MEDS: FUROSEMIDE INJ/PF 40 MG/4 ML SDV IV SCH (12:10)
[2017-04-04 15:44] VITALS: BP 110/50
== END 2017-04-04 16:07 | disposition home or self-care (01) | DRG 871 ==
LOC: ER 11:56 → EH 13:47 → UNDOADMIN 13:47 → EH 14:48 → 3W 16:44
PROVIDERS: ADMIT Internal Medicine; ATTEND Internal Medicine
PROC: 3E0F73Z Introduction of Anti-inflammatory into Respiratory Tract, Via Natural or Artificial Opening (ICD-10-PCS; 2017-03-25)
PROC: 5A09457 Assistance with Respiratory Ventilation, 24-96 Consecutive Hours, Continuous Positive Airway Pressure (ICD-10-PCS; principal; 2017-03-27)
DX: A41.9 Sepsis, unspecified organism (principal); J69.0 Pneumonitis due to inhalation of food and vomit; G93.41 Metabolic encephalopathy; H46.9 Unspecified optic neuritis; D63.8 Anemia in other chronic diseases classified elsewhere; F03.90 Unspecified dementia, unspecified severity, without behavioral disturbance, psychotic disturbance, mood disturbance, and anxiety; E11.42 Type 2 diabetes mellitus with diabetic polyneuropathy; E78.5 Hyperlipidemia, unspecified; I10 Essential (primary) hypertension; B96.20 Unspecified Escherichia coli [E. coli] as the cause of diseases classified elsewhere; E87.6 Hypokalemia; Z79.4 Long term (current) use of insulin; Z79.899 Other long term (current) drug therapy; Z90.11 Acquired absence of right breast and nipple; Z90.49 Acquired absence of other specified parts of digestive tract; Z86.73 Personal history of transient ischemic attack (TIA), and cerebral infarction without residual deficits; Z88.8 Allergy status to other drugs, medicaments and biological substances; Z82.49 Family history of ischemic heart disease and other diseases of the circulatory system
CPT/HCPCS: 36415; 70460; 70481; 71010; 74000; 80048; 80053; 81001; 82803; 82962; 83605; 83735; 83880; 85025; 85027; 85610; 87040; 87077; 87086; 87186; 93005; 93010; 93971; 94640; 94660; 96365; 96368; 99291; G8978-GP; G8979-GP; G8996-GN; G8997-GN; G8998-GN; J1650; J1815; J1940; J1956; J3480; J3490; J7030; J7620

== ENCOUNTER 2017-05-14 09:56 | Emergency (ER) | payer MEDICARE, OTHER ==
--- NOTE | 2017-05-14 10:27 | RADIOLOGY REPORT (SQ) ---
EXAM DESCRIPTION: WRIST LEFT 3 VIEWS COMPLETED DATE/TIME: 05/14/2017 10:15 am REASON FOR STUDY: fall COMPARISON: None. NUMBER OF VIEWS: Three views. TECHNIQUE: AP, lateral, and oblique radiographic images acquired of the left wrist. LIMITATIONS: None. FINDINGS: MINERALIZATION: Normal. BONES: There is a comminuted fracture of the distal radius with radial displacement of distal fragmen ts and with volar angulation SOFT TISSUES: No soft tissue swelling. No foreign body. OTHER: No other significant finding. IMPRESSION: Comminuted fracture of the distal radius. TECHNICAL DOCUMENTATION: JOB ID: [id number] [employer]- All Rights Reserved
--- NOTE | 2017-05-14 10:41 | RADIOLOGY REPORT (SQ) ---
EXAM DESCRIPTION: CHEST PA/LAT COMPLETED DATE/TIME: 05/14/2017 10:28 am REASON FOR STUDY: aspiration pneumonia COMPARISON: 04/03/2017, 03/31/2017, and 03/09/2010. EXAM PARAMETERS: NUMBER OF VIEWS: two views TECHNIQUE: Digital Frontal and Lateral radiographic views of the chest acquired. RADIATION DOSE: NA LIMITATIONS: none FINDINGS: LUNGS AND PLEURA: Chronic elevation of the right hemidiaphragm. Generally improved aerati on with clearing of the previously seen parenchymal infiltrates. There is a residual spiculated area in the right mid lung. No large pleural effusion. No pneumothorax. MEDIASTINUM AND HILAR STRUCTURES: No masses or contour abnormalities. Right paratracheal fullness st able since 2009 and presumably due to overlapping soft tissue structures. HEART AND VASCULAR STRUCTURES: Heart normal size. No evidence for failure. BONES: No acute findings. HARDWARE: None in the chest. OTHER: No other significant finding. IMPRESSION: IMPROVED AERATION WITH CLEARING OF THE PREVIOUSLY SEEN PARENCHYMAL INFILTRATES. RESIDUA L SPICULATED AREA IN THE RIGHT MID LUNG COULD REPRESENT SCARRING OR FOCAL RESIDUAL INFILTRATE ALTHOUG H UNDERLYING LUNG MASS CANNOT BE EXCLUDED. SHOULD CONSIDER CT OF THE CHEST FOR FURTHER EVALUATION IF CLINICALLY INDICATED. TECHNICAL DOCUMENTATION: JOB ID: [id number] [employer]- All Rights Reserved
--- NOTE | 2017-05-14 11:19 | ER Document Report ---
ED Fall - General Chief Complaint: Fall Stated Complaint: FALL LEFT WRIST PAIN Time Seen by Provider: 05/14/17 10:33 Mode of Arrival: Ambulatory Information source: Patient TRAVEL OUTSIDE OF THE [place] IN LAST 30 DAYS: No - HPI Patient complains to provider of: fall Occurred: Just prior to arrival Where: Home Context: Tripped Associated symptoms: None Location of injury/pain: Wrist Quality of pain: Dull, Throbbing Severity: Moderate Pain Level: 3 - Related data Allergies/Adverse Reactions: diazepam [From Valium] Allergy (Verified 05/14/17 09:58) Past Medical History - Social History Smoking Status: Never Smoker Chew tobacco use (# tins/day): No Frequency of alcohol use: None Drug Abuse: None Lives with: Family Family History: Reviewed & Not Pertinent Patient has suicidal ideation: No Patient has homicidal ideation: No - Past Medical History Cardiac Medical History: Reports: Hx Hypercholesterolemia, Hx Hypertension Denies: Hx Coronary Artery Disease, Hx Heart Attack Pulmonary Medical History: Reports: Hx Pneumonia Denies: Hx Asthma, Hx Bronchitis, Hx COPD, Hx Tuberculosis Neurological Medical History: Reports: Hx Cerebrovascular Accident. 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 Psychiatric Medical History: Reports: Hx Dementia Past Surgical History: Reports: Hx Appendectomy, Hx Breast Surgery - R breast, Hx Cholecystectomy, Hx Mastectomy - right - Immunizations Hx Diphtheria, Pertussis, Tetanus Vaccination: No Hx Pneumococcal Vaccination: 06/14/12 Review of Systems - Review of Systems Constitutional: No symptoms reported EENT: No symptoms reported Cardiovascular: No symptoms reported Respiratory: No symptoms reported Gastrointestinal: No symptoms reported Genitourinary: No symptoms reported Musculoskeletal: Joint swelling Skin: No symptoms reported Hematologic/Lymphatic: No symptoms reported Neurological/Psychological: No symptoms reported Physical Exam - Vital signs Vitals: Pulse Resp BP Pulse Ox 72 20 179/62 H 94 05/14/17 10:05 05/14/17 10:05 05/14/17 10:05 05/14/17 10:05 - Notes Notes: PHYSICAL EXAMINATION: GENERAL: Well-appearing, well-nourished and in no acute distress. HEAD: Atraumatic, normocephalic. EYES: Pupils equal round and reactive to light, extraocular movements intact, conjunctiva are normal. ENT: Nares patent, oropharynx clear without exudates. Moist mucous membranes. NECK: Normal range of motion, supple without lymphadenopathy LUNGS: Breath sounds clear to auscultation bilaterally and equal. No wheezes rales or rhonchi. HEART: Regular rate and rhythm without murmurs ABDOMEN: Soft, nontender, nondistended abdomen. No guarding, no rebound. No masses appreciated. Female : deferred Musculoskeletal: The wrist grossly deformed. Positive radial pulse neurovascularly intact. NEUROLOGICAL: Cranial nerves grossly intact. Normal speech, normal gait. Normal sensory, motor exams PSYCH: Normal mood, normal affect. SKIN: Warm, Dry, normal turgor, no rashes or lesions noted. Course - Vital Signs Vital signs: Temp Pulse Resp BP Pulse Ox 77 16 180/66 H 99 05/14/17 14:26 05/14/17 14:26 05/14/17 14:26 05/14/17 14:26 - Transfer of Care Notes: 05/14/17 11:28 I did speak with Lauren Liang's office and they will see her Wednesday at 930, patient and were notified 05/14/17 14:57 Also did talk to the as well as the patient in regards to the chest x- ray that was ordered. Corazon SELBY had ordered this as an outpatient and the patient's had it done while he was here in the emergency department. I did tell him that it was abnormal results and he needs to follow-up with Corazon SELBY to have further studies done. I did attempt to call her but she was off today. I discussed xray findings with the [facility] nurse Linette (read impression to her)and she is to let Corazon know regarding the results and need for further follow up. 05/14/17 15:02 Procedures - Joint Reduction/Fracture Care Left Wrist Consent obtained: Yes Conscious sedation: No Pre-procedure NV exam: Yes - nv intact Fracture: Closed Post-procedure NV exam: Yes Post-reduction x-ray: Joint reduced Reduction attempts: 1 Notes: 05/14/17 14:52 Hematoma block to left wrist performed with 10cc 1% lido under sterile conditions. Traction applied ten minutes after block performed. Wrist reduced. N /V intact following reduction. Volar splint applied by RN with my direct observation. N/v intact following splint application. 05/14/17 14:53 Discharge - Discharge Clinical Impression: fracture, Fracture of left wrist Condition: Stable Disposition: HOME, SELF-CARE Instructions: Fractured Radius ([facility]), Splint Pending Casting ([facility]) Additional Instructions: Please follow-up with your nurse practitioner Corazon arango regarding your chest x -ray results. You may need further studies. Prescriptions: Hydrocodone/Acetaminophen [Vicodin 5-300 mg Tablet] 1 tab PO Q4HP PRN #20 tab PRN Reason: Referrals: CORAZON ARANGO PA-C [Primary Care Provider] - Follow up as needed THOM LIANG DO [ACTIVE STAFF] - 05/17/17 9:30 am
[2017-05-14] MEDS ORDERED: LIDOCAINE 1% INJ (10 MG/ML) 10 ML MDV INJ ONE (11:25)
[2017-05-14] MEDS ORDERED: HYDROCODONE/ACETAMINOPHEN 10-325 MG TABLET PO ONE (11:27)
[2017-05-14] MEDS ORDERED: LIDOCAINE 2% INJ (20 MG/ML) 20 ML MDV INJ ONE (11:54)
--- NOTE | 2017-05-14 13:51 | RADIOLOGY REPORT (SQ) ---
EXAM DESCRIPTION: WRIST LEFT 2 VIEWS COMPLETED DATE/TIME: 05/14/2017 1:41 pm REASON FOR STUDY: post reduction COMPARISON: 05/14/2017. NUMBER OF VIEWS: Two views. TECHNIQUE: AP and lateral radiographic images acquired of the left wrist. LIMITATIONS: None. FINDINGS: MINERALIZATION: Normal. BONES: Comminuted fracture of the distal radius. Alignment slightly improved. SOFT TISSUES: No soft tissue swelling. No foreign body. OTHER: No other significant finding. IMPRESSION: COMMINUTED FRACTURE OF THE DISTAL RADIUS WITH SLIGHT IMPROVEMENT OF ALIGNMENT. TECHNICAL DOCUMENTATION: JOB ID: [id number] [employer]- All Rights Reserved
[2017-05-14 14:27] VITALS: BP 180/66
== END 2017-05-14 14:27 | disposition home or self-care (01) ==
LOC: ER 09:56
PROC: 0PSJXZZ Reposition Left Radius, External Approach (ICD-10-PCS; principal; 2017-05-14)
DX: S62.102A Fracture of unspecified carpal bone, left wrist, initial encounter for closed fracture (principal); W01.0XXA Fall on same level from slipping, tripping and stumbling without subsequent striking against object, initial encounter; Y92.009 Unspecified place in unspecified non-institutional (private) residence as the place of occurrence of the external cause; E78.00 Pure hypercholesterolemia, unspecified; I10 Essential (primary) hypertension; E11.9 Type 2 diabetes mellitus without complications; Z86.73 Personal history of transient ischemic attack (TIA), and cerebral infarction without residual deficits
CPT/HCPCS: 99283; 71020; 73100; 73110; 25605; J3490; A9270

== ENCOUNTER → 2017-06-04 | Outpatient (CLI) | payer MEDICARE, OTHER ==
--- NOTE | 2017-06-04 12:27 | RADIOLOGY REPORT (SQ) ---
EXAM DESCRIPTION: CHEST PA/LAT COMPLETED DATE/TIME: 06/04/2017 12:17 pm REASON FOR STUDY: J69.0 PNEUMONITIS DUE TO INHALATION OF FOOD AND VOMIT COMPARISON: 05/14/2017 and 04/03/2017. EXAM PARAMETERS: NUMBER OF VIEWS: two views TECHNIQUE: Digital Frontal and Lateral radiographic views of the chest acquired. RADIATION DOSE: NA LIMITATIONS: none FINDINGS: LUNGS AND PLEURA: Chronic interstitial changes chronic elevation of the right hemidiaphrag m. Again seen are irregular prominent densities in the right hilar region. No lobar infiltrates. N o large pleural effusion. No pneumothorax. MEDIASTINUM AND HILAR STRUCTURES: Stable right paratracheal fullness. HEART AND VASCULAR STRUCTURES: Heart normal size. No evidence for failure. BONES: No acute findings. HARDWARE: None in the chest. OTHER: No other significant finding. IMPRESSION: CHRONIC INTERSTITIAL CHANGES. NO APPARENT ACUTE FINDINGS. IRREGULAR DENSITIES IN THE M EDIAL RIGHT LUNG. RECOMMEND FOLLOW-UP CHEST CT. TECHNICAL DOCUMENTATION: JOB ID: [id number]- All Rights Reserved
== END ==
LOC: RAD 12:03
PROVIDERS: ATTEND Physician Assistant
DX: J69.0 Pneumonitis due to inhalation of food and vomit (principal)
CPT/HCPCS: 71020

== ENCOUNTER → 2017-06-15 | Outpatient (CLI) | payer MEDICARE, OTHER ==
--- NOTE | 2017-06-15 16:34 | RADIOLOGY REPORT (SQ) ---
EXAM DESCRIPTION: CT CHEST WITH COMPLETED DATE/TIME: 06/15/2017 2:12 pm REASON FOR STUDY: ABN CXR (R93.8) R93.8 ABNORMAL FINDINGS ON DIAGNOSTIC IMAGING OF BODY STRUCT COMPARISON: Chest x-ray dated 06/04/2017. Chest CT dated 11/14/2013. TECHNIQUE: CT scan of the chest performed using helical scanning technique with dynamic intravenous contrast injection. Images reviewed with lung, soft tissue and bone windows. Reconstructed coronal and sagittal MPR images reviewed. All images stored on PACS. All CT scanners at this facility use dose modulation, iterative reconstruction, and/or weight based d osing when appropriate to reduce radiation dose to as low as reasonably achievable (ALARA). [facility]: Dose Right [facility]: CareDose [facility]: Dose Right [facility]: Teradose 4D [facility]: [employer] [facility] CONTRAST TYPE AND DOSE: contrast/concentration: Isovue 370.00 mg/ml; Total Contrast Delivered: 68.2 ml; Total Saline Delivered: 20.0 ml RENAL FUNCTION: Creatinine 0.6. RADIATION DOSE: CT Rad equipment meets quality standard of care and radiation dose reduction techniq ues were employed. CTDIvol: 11.6 mGy. DLP: 393 mGy-cm. . LIMITATIONS: Limited by motion artifact. FINDINGS: LUNGS AND PLEURA: Chronic elevation of the right hemidiaphragm. Extensive parenchymal sca rring. No focal nodules or masses. No focal infiltrates. No pleural effusion, pleural thickening, or pleural calcification. HILAR AND MEDIASTINAL STRUCTURES: No identified masses or abnormal nodes. HEART AND VASCULAR STRUCTURES: Cardiomegaly. No aneurysm or dissection. No central pulmonary emboli . No pericardial effusion. HARDWARE: None in the chest. Surgical clips in the soft tissues of the right breast. UPPER ABDOMEN: No significant findings. Numerous calcified granulomas in the spleen. Limited exam. THYROID AND OTHER SOFT TISSUES: No masses. No adenopathy. BONES: No significant finding. OTHER: No other significant finding. IMPRESSION: STUDY SOMEWHAT LIMITED BY MOTION ARTIFACT. THERE IS CARDIOMEGALY. THERE IS CHRONIC WINTER VATION OF THE RIGHT HEMIDIAPHRAGM WITH EXTENSIVE CHRONIC SCARRING. NO FOCAL MASSES OR ACUTE FINDINGS . FULLNESS IN THE RIGHT HILUM ON RECENT CHEST X-RAY APPEARS TO BE DUE TO PROMINENT PULMONARY VESSELS . TECHNICAL DOCUMENTATION: JOB ID: [id number] Quality ID # [id number]: Final reports with documentation of one or more dose reduction techniques (e.g., Au tomated exposure control, adjustment of the mA and/or kV according to patient size, use of iterative reconstruction technique) 2010 [employer]- All Rights Reserved
== END ==
LOC: RAD 13:04
PROVIDERS: ATTEND Physician Assistant
DX: R93.8 Abnormal findings on diagnostic imaging of other specified body structures (principal)
CPT/HCPCS: 71260; 82565

== ENCOUNTER 2017-10-08 01:18 | Inpatient (IN) | payer MEDICARE, OTHER ==
[2017-10-08] MEDS ORDERED: CEFTRIAXONE 1 GM/D5W RTU 1 GM/50 ML RTUPB IV ONE (01:27)
--- NOTE | 2017-10-08 01:29 | ER Document Report ---
ED Respiratory Problem - General Chief Complaint: Shortness Of Breath Stated Complaint: SHORTNESS OF BREATH Time Seen by Provider: 10/08/17 01:26 Notes: The patient is an 87-year-old female, past medical history mild dementia, hypertension, diabetes, CHF (EF 70-75%), presents with 1 day of worsening shortness of breath and dry cough. EMS arrived and her oxygen was 70% on room air. She does not wear oxygen at home. She was placed on 5 L nasal cannula with improvement of her oxygen saturation to 95%. Patient has outpatient labs and urine from 2 days ago that shows evidence of a UTI, but she is not on any antibiotics. Her primary care provider is Soraida Tee. She is full code. Patient denies chest pain, fevers, abdominal pain, nausea, vomiting, headache, neck stiffness or rash. TRAVEL OUTSIDE OF THE [place] IN LAST 30 DAYS: No - Related Data Allergies/Adverse Reactions: diazepam [From Valium] Allergy (Verified 05/14/17 09:58) Past Medical History - General Information source: Patient - Social History Smoking Status: Unknown if Ever Smoked Family History: Reviewed & Not Pertinent - Past Medical History Cardiac Medical History: Reports: Hx Hypercholesterolemia, Hx Hypertension Denies: Hx Coronary Artery Disease, Hx Heart Attack Pulmonary Medical History: Reports: Hx Pneumonia Denies: Hx Asthma, Hx Bronchitis, Hx COPD, Hx Tuberculosis Neurological Medical History: Reports: Hx Cerebrovascular Accident. 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 RESPIRATORY: +cough, +SOB GASTROINTESTINAL: -abdominal pain, -nausea, -vomiting, -diarrhea GENITOURINARY: -dysuria, -hematuria MUSCULOSKELETAL: -back pain, -neck pain SKIN: -rash or skin lesions. HEMATOLOGIC: -easy bruising or bleeding. LYMPHATIC: -swollen, enlarged glands. NEUROLOGICAL: -altered mental status or loss of consciousness, -headache, - neurologic symptoms PSYCHIATRIC: -anxiety, -depression. ALL OTHER SYSTEMS REVIEWED AND NEGATIVE. Physical Exam - Vital signs Vitals: Temp Pulse Ox 97.5 F 82 L 10/08/17 01:25 10/08/17 01:25 - Notes Notes: PHYSICAL EXAMINATION: GENERAL: Elderly-appearing. HEAD: Atraumatic, normocephalic. EYES: Pupils equal round and reactive to light, extraocular movements intact, sclera anicteric, conjunctiva are normal. ENT: nares patent, oropharynx clear without exudates. Moist mucous membranes. NECK: Normal range of motion, supple without lymphadenopathy LUNGS: Tachypnea, diffuse crackles HEART: Regular rate and rhythm with murmur ABDOMEN: Soft, nontender, normoactive bowel sounds. No guarding, no rebound. No masses appreciated. EXTREMITIES: Normal range of motion, no pitting or edema. No cyanosis. NEUROLOGICAL: Cranial nerves grossly intact. Normal sensory and motor exams. SKIN: Warm, Dry, normal turgor, no rashes or lesions noted. Course - Re-evaluation Re-evalutation: Patient arrives mildly tachypneic and hypoxic down to 70% on room air, which improved with 5 L nasal cannula. Chest x-ray showed diffuse multi-airspace disease. CTA ordered due to her history of lung cancer, tachypnea and hypoxia, but no evidence of PE was seen. With her elevated proBNP, suspect that her CTA results are consistent with pulmonary edema and pulmonary artery hypertension. No fever, leukocytosis, elevated lactate or productive cough to suggest pneumonia. Patient also has a UTI and will begin Rocephin. Her primary care provider is Soraida Tee. Patient requires admission for diuresis for her CHF and due to her hypoxia. 10/08/17 04:[address] Parada and will admit patient to [facility] as Inpatient. - Vital Signs Vital signs: Temp Pulse Resp BP Pulse Ox 97.5 F 14 163/78 H 96 10/08/17 01:25 10/08/17 05:01 10/08/17 05:01 10/08/17 05:01 - Laboratory Result Diagrams: 10/08/17 02:22 10/08/17 02:22 Laboratory results interpreted by me: 10/08/17 10/08/17 10/08/17 02:22 02:22 02:22 RBC 3.43 L Hgb 10.2 L Hct 31.4 L RDW 23.4 H Plt Count 556 H Carbon Dioxide 31 H Creatinine 0.49 L Glucose 118 H NT-Pro-B Natriuret Pep 5970 H Total Protein 5.4 L Albumin 3.0 L Urine Protein Urine Nitrite Ur Leukocyte Esterase Urine Ascorbic Acid 10/08/17 03:42 RBC Hgb Hct RDW Plt Count Carbon Dioxide Creatinine Glucose NT-Pro-B Natriuret Pep Total Protein Albumin Urine Protein >=500 H Urine Nitrite POSITIVE H Ur Leukocyte Esterase TRACE H Urine Ascorbic Acid 40 H - Diagnostic Test Radiology reviewed: Image reviewed, Reports reviewed Radiology results interpreted by me: CXR: Moderate airspace opacities. Differential diagnosis includes CHF, pulmonary edema and multifocal pneumonia. CTA Chest: 1. Moderate airspace opacities. Differential diagnosis includes CHF, pulmonary edema and multifocal pneumonia. 2. Pulmonary arterial hypertension pattern. No pulmonary embolus. - EKG Interpretation by Me EKG shows normal: Sinus rhythm, [place], Intervals, QRS Complexes, ST-T Waves When compared to previous EKG there are: No significant change Critical Care Note - Critical Care Note Total time excluding time spent on procedures (mins): 35 Discharge - Discharge Clinical Impression: Hypoxia UTI (urinary tract infection) Qualifiers: Urinary tract infection type: acute cystitis Hematuria presence: without hematuria Qualified Code(s): N30.00 - Acute cystitis without hematuria Pulmonary edema Qualifiers: Chronicity: acute Qualified Code(s): J81.0 - Acute pulmonary edema Condition: Stable Disposition: ADMITTED INPATIENT Admitting Provider: [facility] Unit Admitted: [facility]
[2017-10-08] MEDS ORDERED: LEVOFLOXACIN 750 MG/D5W RTU 750 MG/150 ML RTUPB IV ONE (02:08)
[2017-10-08] MEDS ORDERED: AZITHROMYCIN INJ 500 MG VIAL IV ONE (02:08)
--- NOTE | 2017-10-08 02:09 | RADIOLOGY REPORT (SQ) ---
EXAM DESCRIPTION: CHEST SINGLE VIEW CLINICAL HISTORY: 87 years Female, SOB COMPARISON: 12.22.17. NUMBER OF VIEWS/TECHNIQUE: 1/AP FINDINGS: Moderate airspace and mild interstitial opacities worse in the right upper lobe, mild enlargement of the cardiac silhouette, atherosclerosis, lateral right hemithoracic clips, and mild scoliotic curvature. IMPRESSION: Moderate airspace opacities. Differential diagnosis includes CHF, pulmonary edema and multifocal pneumonia.
[2017-10-08 02:41] LABS: INTERNATIONAL RATION (INR) 0.92; PROTHROMBIN TIME 12.8 SEC (11.4-15.4)
[2017-10-08 02:43] LABS: VENOUS BLOOD BASE EXCESS 4.2 mmol/L; VENOUS BLOOD HCO3 30.1 mmol/L (20-32); VENOUS BLOOD PCO2 51.3 mmHg (35-63); VENOUS BLOOD PH 7.39 (7.30-7.42)
[2017-10-08 02:44] LABS: ABSOLUTE BASOPHILS # (AUTO) 0.1 10^3/uL (0.0-0.2); ABSOLUTE EOSINOPHILS # (AUTO) 0.2 10^3/uL (0.0-0.6); ABSOLUTE LYMPHOCYTES (AUTO) 1.3 10^3/uL (0.5-4.7); ABSOLUTE MONOCYTES (AUTO) 0.9 10^3/uL (0.1-1.4); ABSOLUTE NEUT (AUTO) 6.4 10^3/uL (1.7-8.2); BASOPHILS % (AUTO) 0.7 % (0-2); EOSINOPHILS % (AUTO) 1.9 % (0-6); HEMATOCRIT 31.4 % (36.0-47.0); HEMOGLOBIN 10.2 g/dL (12.0-15.5); LYMPHOCYTES % (AUTO) 14.2 % (13-45); MEAN CORPUSCULAR HEMOGLOBIN 29.7 pg (27.0-33.4); MEAN CORPUSCULAR HGB CONC 32.5 g/dL (32.0-36.0); MEAN CORPUSCULAR VOLUME 92 fl (80-97); MONOCYTES % (AUTO) 10.7 % (3-13); PLATELET COUNT 556 10^3/uL (150-450); RED BLOOD COUNT 3.43 10^6/uL (3.72-5.28); RED CELL DISTRIBUTION WIDTH 23.4 % (11.5-14.0); SEGMENTED NEUTROPHILS % (AUTO) 72.5 % (42-78); TOTAL CELLS COUNTED % (AUTO) 100 %; WHITE BLOOD COUNT 8.9 10^3/uL (4.0-10.5)
[2017-10-08 02:55] LABS: ALANINE AMINOTRANSFERASE 37 U/L (9-52); ALKALINE PHOSPHATASE 121 U/L (38-126); ANION GAP 9 (5-19); ASPARTATE AMINO TRANSFERASE 27 U/L (14-36); BILIRUBIN,DIRECT 0.2 mg/dL (0.0-0.4); BILIRUBIN,TOTAL 0.3 mg/dL (0.2-1.3); BLOOD UREA NITROGEN 18 mg/dL (7-20); CALCIUM 9.3 mg/dL (8.4-10.2); CARBON DIOXIDE 31 mmol/L (22-30); CHLORIDE 103 mmol/L (98-107); GLUCOSE 118 mg/dL (75-110); SODIUM 143.2 mmol/L (137-145); TOTAL PROTEIN 5.4 g/dL (6.3-8.2)
[2017-10-08 04:01] LABS: APPEARANCE,URINE SLIGHTLY-CLOUDY; BILIRUBIN,URINE NEGATIVE (NEGATIVE); COLOR,URINE YELLOW; GLUCOSE, URINE NEGATIVE (NEGATIVE); KETONES,URINE NEGATIVE (NEGATIVE); LEUKOCYTE ESTERASE,URINE TRACE (NEGATIVE); NITRITE,URINE POSITIVE (NEGATIVE); PROTEIN,URINE >=500 mg/dL (NEGATIVE); URINE SPECIFIC GRAVITY 1.058; UROBILINOGEN,URINE NEGATIVE mg/dL (<2.0)
--- NOTE | 2017-10-08 04:05 | RADIOLOGY REPORT (SQ) ---
EXAM DESCRIPTION: CTA CHEST CLINICAL HISTORY: 87 years Female, hypoxia, Hx breast cancer, SOB COMPARISON: 1.2.18 TECHNIQUE: IV contrast. Multiplanar reformat. This exam was performed according to our departmental dose-optimization program, which includes automated exposure control, adjustment of the mA and/or kV according to patient size and/or use of iterative reconstruction technique. FINDINGS: Bilateral confluent airspace opacities of both lung acosta worse in the right upper lobe new compared with prior CT from June 2017. Small right pleural effusion. No pulmonary embolus. No right ventricular strain. Prominent pulmonary arterial system includes a 3.2 cm diameter left main pulmonary artery suggests pulmonary arterial hypertension. Moderate cardiac enlargement. Moderate coronary arterial calcification. Splenic calcified granulomata. Cholecystectomy clips. IMPRESSION: 1. Moderate airspace opacities. Differential diagnosis includes CHF, pulmonary edema and multifocal pneumonia. 2. Pulmonary arterial hypertension pattern. No pulmonary embolus.
[2017-10-08] MEDS ORDERED: FUROSEMIDE INJ/PF 40 MG/4 ML SDV IV ONE (04:11)
[2017-10-08] MEDS ORDERED: CEFTRIAXONE INJ 1000 MG VIAL IV ONE (04:25)
[2017-10-08] MEDS ORDERED: ENALAPRILAT DIHYDRATE INJ/PF 1.25 MG/1 ML SDV IV PRN (04:34)
[2017-10-08] MEDS ORDERED: ACETAMINOPHEN 325 MG TABLET PO PRN (04:34)
[2017-10-08] MEDS ORDERED: MAGNESIUM HYDROXIDE SUSP 30 ML UDCUP PO PRN (04:34)
[2017-10-08] MEDS ORDERED: MAG HYDROX/AL HYDROX/SIMETH SUSP 30 ML UDCUP PO PRN (04:34)
[2017-10-08] MEDS ORDERED: NITROGLYCERIN 5 MG (0.2 MG/HR) PATCH.TD24 TD ONE (05:00)
[2017-10-08] MEDS: HEPARIN SOD (PORCINE) 5,000 UNIT/ML 1 ML SYRINGE SUBCUT SCH ×3 (05:01→21:33)
--- NOTE | 2017-10-08 05:40 | PDOC H&P ---
History of Present Illness Admission Date/PCP: 10/08/17 04:47 CORAZON CARRION PA-C Patient complains of: Shortness of breath History of Present Illness: SANDY DANG is a 87 year old female with a past medical history of dementia , diastolic heart failure, hypertension, diabetes, generalized debility and remote breast cancer. She presents with 12 hours of shortness of breath and a nonproductive cough denying chest pain, palpitations, nausea vomiting or diaphoresis. Spouse at bedside verifies blood pressure in the 140 range systolic, blood sugars 160-120. No new medications. In the emergency room she is found to have pulmonary edema and receives supplemental oxygen and Lasix. She further denies rhinorrhea, sore throat, acid reflux and is admittedly feeling better. 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 Psychiatric Medical History: Reports: Dementia Hematology: Denies: Anemia Past Surgical History Past Surgical History: Reports: Appendectomy, Cholecystectomy, Mastectomy - right Social History Information Source: Patient, Relative Lives with: Spouse/Significant other Smoking Status: Never Smoker Frequency of Alcohol Use: None Hx Recreational Drug Use: No Drugs: None Hx Prescription Drug Abuse: No - Advance Directive Resuscitation Status: Full Code Family History Family History: CAD Parental Family History Reviewed: Yes Children Family History Reviewed: Yes Sibling(s) Family History Reviewed.: Yes Medication/Allergy Home Medications: Amlodipine Besylate [Norvasc 10 mg Tablet] 10 mg PO DAILY 03/25/17 Anastrozole [Arimidex 1 mg Tablet] 1 mg PO DAILY 03/25/17 Atorvastatin Calcium [Lipitor 20 mg Tablet] 20 mg PO QHS 03/25/17 Calcium Carbonate/Vitamin D3 [Calcium 500 + Vit D Caplet] 1 tab PO DAILY Donepezil HCl [Aricept] 10 mg PO QHS 03/25/17 Eplerenone [Inspra] 50 mg PO QAM 03/25/17 Ketotifen Fumarate [Refresh] 1 drop OU QIDP PRN 03/25/17 Levothyroxine Sodium [Synthroid] 137 mcg PO QAM 03/25/17 Losartan Potassium [Cozaar 50 mg Tablet] 50 mg PO DAILY 03/25/17 Metformin HCl [Glucophage 500 mg Tablet] 500 mg PO BID 03/25/17 Omeprazole 20 mg PO DAILY 03/25/17 Ropinirole HCl [Requip 2 mg Tablet] 2 mg PO Q12 03/25/17 Sitagliptin Phosphate [Januvia] 50 mg PO BID 03/25/17 Solifenacin Succinate [Vesicare] 10 mg PO DAILY 03/25/17 Levofloxacin [Levaquin 750 mg Tablet] 750 mg PO Q2DAYS #7 tablet 04/04/17 Hydrocodone/Acetaminophen [Vicodin 5-300 mg Tablet] 1 tab PO Q4HP PRN #20 tab Allergies/Adverse Reactions: diazepam [From Valium] Allergy (Verified 05/14/17 09:58) Review of Systems Constitutional: ABSENT: chills, fever(s), headache(s), weight gain, weight loss Eyes: ABSENT: visual disturbances Ears: ABSENT: hearing changes Cardiovascular: ABSENT: chest pain, dyspnea on exertion, edema, orthropnea, palpitations Respiratory: ABSENT: cough, hemoptysis Gastrointestinal: ABSENT: abdominal pain, constipation, diarrhea, hematemesis, hematochezia, nausea, vomiting Genitourinary: ABSENT: dysuria, hematuria Musculoskeletal: ABSENT: joint swelling Integumentary: ABSENT: rash, wounds Neurological: ABSENT: abnormal gait, abnormal speech, confusion, dizziness, focal weakness, syncope Psychiatric: ABSENT: anxiety, depression, homidical ideation, suicidal ideation Endocrine: ABSENT: cold intolerance, heat intolerance, polydipsia, polyuria Hematologic/Lymphatic: ABSENT: easy bleeding, easy bruising Physical Exam Vital Signs: Temp Pulse Resp BP Pulse Ox 97.5 F 14 163/78 H 96 10/08/17 01:25 10/08/17 05:01 10/08/17 05:01 10/08/17 05:01 General appearance: PRESENT: cooperative, mild distress, obese Head exam: PRESENT: atraumatic, normocephalic Eye exam: PRESENT: conjunctiva pink, EOMI, PERRLA. ABSENT: scleral icterus Ear exam: PRESENT: normal external ear exam Mouth exam: PRESENT: moist, tongue midline Neck exam: ABSENT: carotid bruit, JVD, lymphadenopathy, thyromegaly Respiratory exam: PRESENT: accessory muscle use, crackles, tachypnea. ABSENT: rales, rhonchi, symmetrical, wheezes Cardiovascular exam: PRESENT: RRR. ABSENT: diastolic murmur, rubs, systolic murmur Pulses: PRESENT: normal dorsalis pedis pul Vascular exam: PRESENT: normal capillary refill GI/Abdominal exam: PRESENT: normal bowel sounds, soft. ABSENT: distended, guarding, mass, organolmegaly, rebound, tenderness Rectal exam: PRESENT: deferred Extremities exam: PRESENT: +1 edema Neurological exam: PRESENT: alert, awake, oriented to person, oriented to place , oriented to situation, CN II-XII grossly intact. ABSENT: motor sensory deficit Psychiatric exam: PRESENT: appropriate affect, normal mood. ABSENT: homicidal ideation, suicidal ideation Skin exam: PRESENT: dry, intact, skin tears, warm. ABSENT: cyanosis, rash Results Impressions: Chest X-Ray 10/08/17 01:27 IMPRESSION: Moderate airspace opacities. Differential diagnosis includes CHF, pulmonary edema and multifocal pneumonia. Chest/Abdomen CTA 10/08/17 01:44 IMPRESSION: 1. Moderate airspace opacities. Differential diagnosis includes CHF, pulmonary edema and multifocal pneumonia. 2. Pulmonary arterial hypertension pattern. No pulmonary embolus. Assessment & Plan - Diagnosis (1) Acute exacerbation of congestive heart failure Is this a current diagnosis for this admission?: Yes Plan: CHF care set, BiPAP, supplemental oxygen, serial cardiac enzymes. She has a new prolonged QT, medications are under reconciliation. (2) Dementia Qualifiers: Dementia type: unspecified type Dementia behavioral disturbance: without behavioral disturbance Qualified Code(s): F03.90 - Unspecified dementia without behavioral disturbance Is this a current diagnosis for this admission?: Yes Plan: Supportive care (3) Diabetes mellitus Qualifiers: Diabetes mellitus type: type 2 Diabetes mellitus terminologist insulin use: with terminologist use Diabetes mellitus complication status: with unspecified complications Qualified Code(s): E11.8 - Type 2 diabetes mellitus with unspecified complications; Z79.4 - [employer] (current) use of insulin; Z79.4 - [facility] (current) use of insulin; Z79.4 - [employer] (current) use of insulin; Z79.4 - [facility] (current) use of insulin Is this a current diagnosis for this admission?: Yes Plan: Outpatient regiment and Humalog sliding scale. (4) HTN (hypertension) Qualifiers: Hypertension type: essential hypertension Qualified Code(s): I10 - Essential (primary) hypertension Is this a current diagnosis for this admission?: Yes Plan: Nitrates, hydralazine and Lasix initiated - Time Time Spent: 30 to 50 Minutes - Inpatient Certification Medical Necessity: Need Close Monitoring Due to Risk of Patient Decompensation
--- NOTE | 2017-10-08 07:52 | EKG REPORT ---
SEVERITY:- ABNORMAL ECG - SINUS RHYTHM VENTRICULAR PREMATURE COMPLEX LEFT AXIS DEVIATION CONSIDER ANTERIOR INFARCT BORDERLINE T ABNORMALITIES, ANTERIOR LEADS BORDERLINE PROLONGED QT INTERVAL : Confirmed by: Regino Aguayo MD 08-Oct-2017 07:51:15
[2017-10-08] MEDS ORDERED: LEVOTHYROXINE SODIUM 0.112 MG TABLET PO SCH (08:00)
[2017-10-08] MEDS ORDERED: (PENDING PHARMACY ID) (Levothyroxine Sodium [Synthroid] 137 MCG) PO SCH (08:00)
[2017-10-08] MEDS ORDERED: LEVOTHYROXINE SODIUM 0.025 MG TABLET PO SCH (08:00)
[2017-10-08] MEDS ORDERED: LEVOTHYROXINE SODIUM 0.025 MG TABLET PO ONE (09:00)
[2017-10-08] MEDS ORDERED: LEVOTHYROXINE SODIUM 0.112 MG TABLET PO ONE (09:00)
[2017-10-08] MEDS: DOCUSATE SODIUM 100 MG CAPSULE PO SCH (09:28)
[2017-10-08] MEDS: FUROSEMIDE INJ/PF 40 MG/4 ML SDV IV SCH (09:28)
[2017-10-08] MEDS: POTASSIUM CHLORIDE 10 MEQ TABLET.SA PO SCH ×2 (09:28→21:32)
[2017-10-08] MEDS: ASPIRIN 81 MG TABLET, ENT COATED PO SCH (09:28)
[2017-10-08] MEDS: ANASTROZOLE 1 MG TABLET PO SCH (09:40)
[2017-10-08] MEDS: EPLERENONE 25 MG TABLET PO SCH (09:41)
--- NOTE | 2017-10-08 18:27 | EKG REPORT ---
SEVERITY:- ABNORMAL ECG - SINUS RHYTHM MULTIPLE ATRIAL PREMATURE COMPLEXES BORDERLINE LEFT AXIS DEVIATION CONSIDER ANTERIOR INFARCT BORDERLINE T ABNORMALITIES, ANTERIOR LEADS BORDERLINE PROLONGED QT INTERVAL : Confirmed by: Regino Aguayo MD 08-Oct-2017 18:26:56
[2017-10-08] MEDS ORDERED: CEFTRIAXONE 1 GM/D5W RTU 1 GM/50 ML RTUPB IV SCH (19:00)
[2017-10-08] MEDS: CEFTRIAXONE SODIUM 1,000 MG in DEXTROSE 5%-WATER 100 ML IV SCH (21:31)
[2017-10-08] MEDS: DONEPEZIL HCL 5 MG TABLET PO SCH (21:31)
[2017-10-08] MEDS: ATORVASTATIN CALCIUM 20 MG TABLET PO SCH (21:32)
[2017-10-09 05:59] LABS: ABSOLUTE BASOPHILS # (AUTO) 0.1 10^3/uL (0.0-0.2); ABSOLUTE EOSINOPHILS # (AUTO) 0.1 10^3/uL (0.0-0.6); ABSOLUTE LYMPHOCYTES (AUTO) 1.1 10^3/uL (0.5-4.7); ABSOLUTE MONOCYTES (AUTO) 1.3 10^3/uL (0.1-1.4); BASOPHILS % (AUTO) 0.7 % (0-2); HEMATOCRIT 33.2 % (36.0-47.0); HEMOGLOBIN 10.9 g/dL (12.0-15.5); LYMPHOCYTES % (AUTO) 10.4 % (13-45); MEAN CORPUSCULAR HEMOGLOBIN 29.8 pg (27.0-33.4); MEAN CORPUSCULAR HGB CONC 32.9 g/dL (32.0-36.0); MEAN CORPUSCULAR VOLUME 91 fl (80-97); MONOCYTES % (AUTO) 12.4 % (3-13); PLATELET COUNT 600 10^3/uL (150-450); RED BLOOD COUNT 3.66 10^6/uL (3.72-5.28); RED CELL DISTRIBUTION WIDTH 22.2 % (11.5-14.0); SEGMENTED NEUTROPHILS % (AUTO) 75.5 % (42-78); TOTAL CELLS COUNTED % (AUTO) 100 %; WHITE BLOOD COUNT 10.6 10^3/uL (4.0-10.5)
[2017-10-09 06:25] LABS: ANION GAP 13 (5-19); BLOOD UREA NITROGEN 9 mg/dL (7-20); CALCIUM 8.8 mg/dL (8.4-10.2); CARBON DIOXIDE 32 mmol/L (22-30); CHLORIDE 95 mmol/L (98-107); CREATINE KINASE 40 U/L (30-135); GLUCOSE 199 mg/dL (75-110); POTASSIUM 4.5 mmol/L (3.6-5.0); SODIUM 139.7 mmol/L (137-145)
[2017-10-09] MEDS: LEVOTHYROXINE SODIUM 0.025 MG TABLET PO SCH (06:46)
[2017-10-09] MEDS: LEVOTHYROXINE SODIUM 0.112 MG TABLET PO SCH (06:46)
[2017-10-09] MEDS: HEPARIN SOD (PORCINE) 5,000 UNIT/ML 1 ML SYRINGE SUBCUT SCH ×3 (06:46→22:24)
[2017-10-09] MEDS: EPLERENONE 25 MG TABLET PO SCH (07:34)
[2017-10-09] MEDS: DOCUSATE SODIUM 100 MG CAPSULE PO SCH (09:49)
[2017-10-09] MEDS: POTASSIUM CHLORIDE 10 MEQ TABLET.SA PO SCH ×2 (09:49→22:23)
[2017-10-09] MEDS: ASPIRIN 81 MG TABLET, ENT COATED PO SCH (09:49)
[2017-10-09] MEDS: NITROGLYCERIN 5 MG (0.2 MG/HR) PATCH.TD24 TD SCH (09:49)
[2017-10-09] MEDS: FUROSEMIDE INJ/PF 40 MG/4 ML SDV IV SCH (09:50)
[2017-10-09] MEDS: ANASTROZOLE 1 MG TABLET PO SCH (09:52)
--- NOTE | 2017-10-09 10:15 | PDOC PROGRESS REPORT ---
Subjective Progress Note for:: 10/09/17 Subjective:: Difficulty breathing Reason For Visit: DIASTOLIC HEART FAILURE, PULMONARY HTN is a 87 year old female with a past medical history of dementia, diastolic heart failure, hypertension, diabetes, generalized debility and remote breast cancer. She presents with 12 hours of shortness of breath and a nonproductive cough denying chest pain, palpitations, nausea vomiting or diaphoresis. Spouse at bedside verifies blood pressure in the 140 range systolic, blood sugars 160- 120. No new medications. In the emergency room she is found to have pulmonary edema and receives supplemental oxygen and Lasix. She further denies rhinorrhea , sore throat, acid reflux and is admittedly feeling better. Physical Exam Vital Signs: Temp Pulse Resp BP Pulse Ox 98.3 F 80 16 101/59 L 96 10/09/17 07:23 10/09/17 07:23 10/09/17 07:23 10/09/17 07:23 10/09/17 07:23 Intake & Output 10/08/17 10/09/17 10/10/17 06:59 06:59 06:59 Intake Total 1322 Balance 1322 Weight 77.9 kg 77 kg General appearance: PRESENT: no acute distress, thin, other - elderly, kyphotic and frail Head exam: PRESENT: atraumatic Neck exam: ABSENT: carotid bruit, JVD Respiratory exam: PRESENT: rales - R >L, tachypnea Cardiovascular exam: PRESENT: RRR, +S1, +S2 GI/Abdominal exam: PRESENT: normal bowel sounds, soft. ABSENT: distended, guarding, mass, organolmegaly, rebound, tenderness Rectal exam: PRESENT: deferred Extremities exam: PRESENT: full ROM. ABSENT: calf tenderness, clubbing, pedal edema Neurological exam: PRESENT: alert, awake, oriented to situation Psychiatric exam: PRESENT: appropriate affect Results Laboratory Results: 10/09/17 05:24 10/09/17 05:24 10/09/17 10/09/17 05:24 05:24 WBC 10.6 H RBC 3.66 L Hgb 10.9 L Hct 33.2 L MCV 91 MCH 29.8 MCHC 32.9 RDW 22.2 H Plt Count 600 H Seg Neutrophils % 75.5 Lymphocytes % 10.4 L Monocytes % 12.4 Eosinophils % 1.0 Basophils % 0.7 Absolute Neutrophils 8.0 Absolute Lymphocytes 1.1 Absolute Monocytes 1.3 Absolute Eosinophils 0.1 Absolute Basophils 0.1 Sodium 139.7 Potassium 4.5 Chloride 95 L Carbon Dioxide 32 H Anion Gap 13 BUN 9 Creatinine 0.45 L Est GFR ( Amer) > 60 Est GFR (Non-Af Amer) > 60 Glucose 199 H Calcium 8.8 10/08/17 10/09/17 10/09/17 09:33 05:24 05:24 Creatine Kinase 40 CK-MB (CK-2) 1.59 Troponin I 0.024 Impressions: Chest X-Ray 10/08/17 01:27 IMPRESSION: Moderate airspace opacities. Differential diagnosis includes CHF, pulmonary edema and multifocal pneumonia. Chest/Abdomen CTA 10/08/17 01:44 IMPRESSION: 1. Moderate airspace opacities. Differential diagnosis includes CHF, pulmonary edema and multifocal pneumonia. 2. Pulmonary arterial hypertension pattern. No pulmonary embolus. Assessment & Plan - Diagnosis (1) Acute exacerbation of congestive heart failure Is this a current diagnosis for this admission?: Yes (3) Acute UTI Is this a current diagnosis for this admission?: Yes Plan: Urine culture from PCP office 10/05 yielded Klebsiella with good sensitivities to FQ, and Ceftriaxone. (4) Dementia Qualifiers: Dementia type: unspecified type Dementia behavioral disturbance: without behavioral disturbance Qualified Code(s): F03.90 - Unspecified dementia without behavioral disturbance Is this a current diagnosis for this admission?: Yes - Time Time Spent with patient: 15-24 minutes Medications reviewed and adjusted accordingly: Yes Anticipated discharge: Home Within: within 72 hours - Inpatient Certification Based on my medical assessment, after consideration of the patient's comorbidities, presenting symptoms, or acuity I expect that the services needed warrant INPATIENT care.: Yes Medical Necessity: Risk of Complication if Not Cared For in Hospital, Risk of Diagnosis Which Will Require Inpatient Eval/Care/Monitoring
[2017-10-09] MEDS: CEFTRIAXONE SODIUM 1,000 MG in DEXTROSE 5%-WATER 100 ML IV SCH (20:31)
[2017-10-09] MEDS: ATORVASTATIN CALCIUM 20 MG TABLET PO SCH (22:23)
[2017-10-09] MEDS: DONEPEZIL HCL 5 MG TABLET PO SCH (22:23)
[2017-10-10] MEDS: LEVOTHYROXINE SODIUM 0.025 MG TABLET PO SCH (06:15)
[2017-10-10] MEDS: HEPARIN SOD (PORCINE) 5,000 UNIT/ML 1 ML SYRINGE SUBCUT SCH ×3 (06:15→22:30)
[2017-10-10] MEDS: LEVOTHYROXINE SODIUM 0.112 MG TABLET PO SCH (06:15)
[2017-10-10] MEDS: EPLERENONE 25 MG TABLET PO SCH (08:55)
[2017-10-10] MEDS: DOCUSATE SODIUM 100 MG CAPSULE PO SCH (09:33)
[2017-10-10] MEDS: NITROGLYCERIN 5 MG (0.2 MG/HR) PATCH.TD24 TD SCH (09:33)
[2017-10-10] MEDS: POTASSIUM CHLORIDE 10 MEQ TABLET.SA PO SCH ×2 (09:33→22:28)
[2017-10-10] MEDS: ASPIRIN 81 MG TABLET, ENT COATED PO SCH (09:34)
[2017-10-10] MEDS: FUROSEMIDE INJ/PF 40 MG/4 ML SDV IV SCH (09:34)
[2017-10-10] MEDS: ANASTROZOLE 1 MG TABLET PO SCH (09:36)
--- NOTE | 2017-10-10 12:00 | PDOC PROGRESS REPORT ---
Subjective Progress Note for:: 10/10/17 Subjective:: Seems more lethargic today although answering questions appropriately and arousable No reports of nausea vomiting or fever. Reason For Visit: DIASTOLIC HEART FAILURE, PULMONARY HTN Physical Exam Vital Signs: Temp Pulse Resp BP Pulse Ox 100.5 F H 82 18 131/65 H 97 10/10/17 08:19 10/10/17 08:19 10/10/17 08:19 10/10/17 08:19 10/10/17 08:19 Intake & Output 10/09/17 10/10/17 10/11/17 06:59 06:59 06:59 Intake Total 1322 528 Balance 1322 528 Weight 77 kg 69.8 kg General appearance: PRESENT: no acute distress, other - Elderly and frail Head exam: PRESENT: atraumatic Eye exam: PRESENT: conjunctiva pink, EOMI, PERRLA. ABSENT: scleral icterus Respiratory exam: PRESENT: decreased breath sounds, rhonchi. ABSENT: unlabored , wheezes Cardiovascular exam: PRESENT: RRR. ABSENT: diastolic murmur, rubs, systolic murmur GI/Abdominal exam: PRESENT: normal bowel sounds, soft. ABSENT: distended, guarding, mass, organolmegaly, rebound, tenderness Rectal exam: PRESENT: deferred Neurological exam: PRESENT: other - Easily arousable. ABSENT: oriented to place , oriented to time Psychiatric exam: PRESENT: appropriate affect Results Laboratory Results: 10/09/17 05:24 10/09/17 05:24 10/08/17 10/09/17 10/09/17 09:33 05:24 05:24 Creatine Kinase 40 CK-MB (CK-2) 1.59 Troponin I 0.024 Impressions: Chest X-Ray 10/08/17 01:27 IMPRESSION: Moderate airspace opacities. Differential diagnosis includes CHF, pulmonary edema and multifocal pneumonia. Chest/Abdomen CTA 10/08/17 01:44 IMPRESSION: 1. Moderate airspace opacities. Differential diagnosis includes CHF, pulmonary edema and multifocal pneumonia. 2. Pulmonary arterial hypertension pattern. No pulmonary embolus. Assessment & Plan - Diagnosis (1) Acute exacerbation of congestive heart failure Qualifiers: Heart failure type: diastolic Qualified Code(s): I50.33 - Acute on chronic diastolic (congestive) heart failure Is this a current diagnosis for this admission?: Yes Plan: We will decrease Lasix to once a day.Echocardiogram done in December 2016 reveals an ejection fraction of 70% with mild aortic stenosis or regurgitation and stage I diastolic dysfunction. At this point I see no need to repeat echo patient appears to be euvolemic (2) Hypoxia Is this a current diagnosis for this admission?: Yes Plan: This has improved (3) Acute UTI Is this a current diagnosis for this admission?: Yes Plan: Urine culture from PCP office 10/05 yielded Klebsiella with good sensitivities to FQ, and Ceftriaxone. Current culture also yielded Klebsiella and have changed her antibiotics to ciprofloxacin as this appears to be more appropriate than ceftriaxone given the SUDHA (4) Dementia Qualifiers: Dementia type: unspecified type Dementia behavioral disturbance: without behavioral disturbance Qualified Code(s): F03.90 - Unspecified dementia without behavioral disturbance Is this a current diagnosis for this admission?: Yes Plan: Chronic - Time Time Spent with patient: 15-24 minutes Smoking Cessation Education: 3 to 10 minutes Medications reviewed and adjusted accordingly: Yes Anticipated discharge: Home with Homehealth Within: within 48 hours - Inpatient Certification Based on my medical assessment, after consideration of the patient's comorbidities, presenting symptoms, or acuity I expect that the services needed warrant INPATIENT care.: Yes Medical Necessity: Significant Comorbidiites Make Outpatient Treatment Too Risky , Need for IV Antibiotics, Risk of Complication if Not Cared For in Hospital
[2017-10-10] MEDS: CIPROFLOXACIN 400 MG/D5W RTU 400 MG/200 ML RTUPB IV SCH (22:27)
[2017-10-10] MEDS: DONEPEZIL HCL 5 MG TABLET PO SCH (22:29)
[2017-10-10] MEDS: ATORVASTATIN CALCIUM 20 MG TABLET PO SCH (22:29)
[2017-10-11 05:48] LABS: ABSOLUTE BASOPHILS # (AUTO) 0.1 10^3/uL (0.0-0.2); ABSOLUTE EOSINOPHILS # (AUTO) 0.1 10^3/uL (0.0-0.6); ABSOLUTE MONOCYTES (AUTO) 1.7 10^3/uL (0.1-1.4); ABSOLUTE NEUT (AUTO) 7.4 10^3/uL (1.7-8.2); BASOPHILS % (AUTO) 0.7 % (0-2); EOSINOPHILS % (AUTO) 0.6 % (0-6); HEMATOCRIT 34.5 % (36.0-47.0); LYMPHOCYTES % (AUTO) 9.7 % (13-45); MEAN CORPUSCULAR HEMOGLOBIN 29.5 pg (27.0-33.4); MEAN CORPUSCULAR VOLUME 92 fl (80-97); MONOCYTES % (AUTO) 16.9 % (3-13); PLATELET COUNT 551 10^3/uL (150-450); RED BLOOD COUNT 3.74 10^6/uL (3.72-5.28); SEGMENTED NEUTROPHILS % (AUTO) 72.1 % (42-78); TOTAL CELLS COUNTED % (AUTO) 100 %; WHITE BLOOD COUNT 10.3 10^3/uL (4.0-10.5)
[2017-10-11] MEDS: LEVOTHYROXINE SODIUM 0.112 MG TABLET PO SCH (05:55)
[2017-10-11] MEDS: LEVOTHYROXINE SODIUM 0.025 MG TABLET PO SCH (05:55)
[2017-10-11] MEDS: HEPARIN SOD (PORCINE) 5,000 UNIT/ML 1 ML SYRINGE SUBCUT SCH ×3 (05:56→22:20)
[2017-10-11 06:13] LABS: ANION GAP 9 (5-19); BLOOD UREA NITROGEN 19 mg/dL (7-20); CALCIUM 8.8 mg/dL (8.4-10.2); CARBON DIOXIDE 32 mmol/L (22-30); CHLORIDE 99 mmol/L (98-107); GLUCOSE 138 mg/dL (75-110); POTASSIUM 4.9 mmol/L (3.6-5.0); SODIUM 139.8 mmol/L (137-145)
[2017-10-11] MEDS: FUROSEMIDE INJ/PF 40 MG/4 ML SDV IV SCH (09:34)
[2017-10-11] MEDS: EPLERENONE 25 MG TABLET PO SCH (09:34)
[2017-10-11] MEDS: ASPIRIN 81 MG TABLET, ENT COATED PO SCH (10:53)
[2017-10-11] MEDS: CIPROFLOXACIN 400 MG/D5W RTU 400 MG/200 ML RTUPB IV SCH ×2 (10:53→22:20)
[2017-10-11] MEDS: DOCUSATE SODIUM 100 MG CAPSULE PO SCH (10:53)
[2017-10-11] MEDS: POTASSIUM CHLORIDE 10 MEQ TABLET.SA PO SCH ×2 (10:53→22:20)
[2017-10-11] MEDS: ANASTROZOLE 1 MG TABLET PO SCH (10:54)
--- NOTE | 2017-10-11 12:29 | PDOC PROGRESS REPORT ---
Subjective Progress Note for:: 10/11/17 Subjective:: Patient is awke and alert today. She states she sleeps a lot. She denies any chest pain nausea vomiting. No reports of nausea vomiting or fever. Reason For Visit: DIASTOLIC HEART FAILURE, PULMONARY HTN Physical Exam Vital Signs: Temp Pulse Resp BP Pulse Ox 98.1 F 82 20 112/62 100 10/11/17 10:49 10/11/17 10:49 10/11/17 10:49 10/11/17 10:49 10/11/17 10:49 Intake & Output 10/10/17 10/11/17 10/12/17 06:59 06:59 06:59 Intake Total 528 1301 585 Balance 528 1301 585 Weight 69.8 kg 70.9 kg General appearance: PRESENT: thin - Kyphotic elderly and frail Mouth exam: PRESENT: dry mucosa, other - Mouth breather Respiratory exam: PRESENT: clear to auscultation stella. ABSENT: rales, rhonchi, wheezes Cardiovascular exam: PRESENT: RRR, +S1, +S2. ABSENT: tachycardia Pulses: PRESENT: normal dorsalis pedis pul GI/Abdominal exam: PRESENT: normal bowel sounds, soft. ABSENT: distended, guarding, mass, organolmegaly, rebound, tenderness Rectal exam: PRESENT: deferred Neurological exam: PRESENT: alert, awake, oriented to place. ABSENT: oriented to person, oriented to time Psychiatric exam: PRESENT: appropriate affect Results Laboratory Results: 10/11/17 04:37 10/11/17 04:37 10/11/17 10/11/17 04:37 04:37 WBC 10.3 RBC 3.74 Hgb 11.0 L Hct 34.5 L MCV 92 MCH 29.5 MCHC 32.0 RDW 20.0 H Plt Count 551 H Seg Neutrophils % 72.1 Lymphocytes % 9.7 L Monocytes % 16.9 H Eosinophils % 0.6 Basophils % 0.7 Absolute Neutrophils 7.4 Absolute Lymphocytes 1.0 Absolute Monocytes 1.7 H Absolute Eosinophils 0.1 Absolute Basophils 0.1 Sodium 139.8 Potassium 4.9 Chloride 99 Carbon Dioxide 32 H Anion Gap 9 BUN 19 Creatinine 0.50 L Est GFR ( Amer) > 60 Est GFR (Non-Af Amer) > 60 Glucose 138 H Calcium 8.8 10/08/17 10/09/1718 09:33 05:24 05:24 Creatine Kinase 40 CK-MB (CK-2) 1.59 Troponin I 0.024 NT-Pro-B Natriuret Pep 10/11/17 04:37 Creatine Kinase CK-MB (CK-2) Troponin I NT-Pro-B Natriuret Pep 2550 H Impressions: Chest X-Ray 10/08/17 01:27 IMPRESSION: Moderate airspace opacities. Differential diagnosis includes CHF, pulmonary edema and multifocal pneumonia. Chest/Abdomen CTA 10/08/17 01:44 IMPRESSION: 1. Moderate airspace opacities. Differential diagnosis includes CHF, pulmonary edema and multifocal pneumonia. 2. Pulmonary arterial hypertension pattern. No pulmonary embolus. Assessment & Plan - Diagnosis (1) Acute exacerbation of congestive heart failure Qualifiers: Heart failure type: diastolic Qualified Code(s): I50.33 - Acute on chronic diastolic (congestive) heart failure Is this a current diagnosis for this admission?: Yes Plan: Lasix held today due to borderline hypotension. Have discontinued her Nitropaste as there is no indication for this at this time.Echocardiogram done in December 2016 reveals an ejection fraction of 70% with mild aortic stenosis or regurgitation and stage I diastolic dysfunction. At this point I see no need to repeat echo patient appears to be euvolemic. I will reduce her Lasix to 20 mg daily however this needs to be reevaluated as full needs to discharge home on Lasix (2) Hypoxia Is this a current diagnosis for this admission?: Yes Plan: This has improved (3) Acute UTI Is this a current diagnosis for this admission?: Yes Plan: Urine culture from PCP office 10/05 yielded Klebsiella with good sensitivities to FQ, and Ceftriaxone. Current culture also yielded Klebsiella and have changed her antibiotics to ciprofloxacin as this appears to be more appropriate than ceftriaxone given the SUDHA (4) Dementia Qualifiers: Dementia type: unspecified type Dementia behavioral disturbance: without behavioral disturbance Qualified Code(s): F03.90 - Unspecified dementia without behavioral disturbance Is this a current diagnosis for this admission?: Yes Plan: Chronic - Time Time Spent with patient: 15-24 minutes Medications reviewed and adjusted accordingly: Yes Anticipated discharge: Home Within: within 48 hours - Plan Summary Plan Summary: Disposition?- will possible want to take her home. Will consult PT and discharge planning in preparation for home hopefully in another day or 2
[2017-10-11] MEDS: ATORVASTATIN CALCIUM 20 MG TABLET PO SCH (22:20)
[2017-10-11] MEDS: DONEPEZIL HCL 5 MG TABLET PO SCH (22:20)
[2017-10-12] MEDS: LEVOTHYROXINE SODIUM 0.025 MG TABLET PO SCH (05:51)
[2017-10-12] MEDS: LEVOTHYROXINE SODIUM 0.112 MG TABLET PO SCH (05:51)
[2017-10-12] MEDS: HEPARIN SOD (PORCINE) 5,000 UNIT/ML 1 ML SYRINGE SUBCUT SCH ×3 (05:51→21:49)
[2017-10-12] MEDS: EPLERENONE 25 MG TABLET PO SCH (08:38)
[2017-10-12] MEDS: ANASTROZOLE 1 MG TABLET PO SCH (10:32)
[2017-10-12] MEDS: ASPIRIN 81 MG TABLET, ENT COATED PO SCH (10:34)
[2017-10-12] MEDS: DOCUSATE SODIUM 100 MG CAPSULE PO SCH (10:34)
[2017-10-12] MEDS: CIPROFLOXACIN 400 MG/D5W RTU 400 MG/200 ML RTUPB IV SCH (10:35)
[2017-10-12] MEDS: POTASSIUM CHLORIDE 10 MEQ TABLET.SA PO SCH ×2 (10:35→21:49)
[2017-10-12] MEDS: FUROSEMIDE INJ/PF 40 MG/4 ML SDV IV SCH (10:35)
[2017-10-12] MEDS ORDERED: ALBUTEROL SULFATE 0.083% NEB 2.5 MG/3 ML AMPUL NEB PRN (12:18)
[2017-10-12] MEDS ORDERED: DEXTROSE 40% GEL 15 GM TUBE PO PRN ×2 (12:30)
[2017-10-12] MEDS ORDERED: GLUCAGON,HUMAN RECOMB 1 MG INJ IM PRN (12:30)
[2017-10-12] MEDS ORDERED: DEXTROSE 50%-WATER 25 GM/50 ML DISP.SYRIN IV PRN ×2 (12:30)
--- NOTE | 2017-10-12 12:37 | PDOC PROGRESS REPORT ---
Subjective Progress Note for:: 10/12/17 Subjective:: Patient refers that feels better. When inquired she states that she wants to go back home since her is the best nurse Review of systems All organ systems evaluated and negative except as in subjective All laboratories and diagnostics had reviewed. Reason For Visit: DIASTOLIC HEART FAILURE, PULMONARY HTN Physical Exam Vital Signs: Temp Pulse Resp BP Pulse Ox 97.5 F 78 22 H 114/67 95 10/12/17 03:14 10/12/17 03:14 10/12/17 03:14 10/12/17 03:14 10/12/17 03:14 Intake & Output 10/11/17 10/12/17 10/13/17 06:59 06:59 06:59 Intake Total 1301 1715 Balance 1301 1715 Weight 70.9 kg 68.9 kg General appearance: PRESENT: no acute distress, cooperative, well-developed, well-nourished Head exam: PRESENT: atraumatic, normocephalic Eye exam: PRESENT: conjunctiva pink, EOMI, PERRLA Ear exam: PRESENT: normal external ear exam Mouth exam: PRESENT: moist Neck exam: PRESENT: full ROM. ABSENT: JVD, lymphadenopathy, tenderness Respiratory exam: PRESENT: clear to auscultation stella Cardiovascular exam: PRESENT: RRR. ABSENT: diastolic murmur, systolic murmur Vascular exam: PRESENT: normal capillary refill GI/Abdominal exam: PRESENT: normal bowel sounds, soft. ABSENT: tenderness Extremities exam: PRESENT: full ROM. ABSENT: pedal edema Musculoskeletal exam: PRESENT: ambulatory Neurological exam: PRESENT: alert, awake, oriented to person, oriented to place Psychiatric exam: PRESENT: appropriate affect, normal mood Skin exam: PRESENT: intact, normal color Results Laboratory Results: 10/11/17 04:37 10/11/17 04:37 10/08/17 10/09/17 10/09/17 09:33 05:24 05:24 Creatine Kinase 40 CK-MB (CK-2) 1.59 Troponin I 0.024 NT-Pro-B Natriuret Pep 10/11/17 04:37 Creatine Kinase CK-MB (CK-2) Troponin I NT-Pro-B Natriuret Pep 2550 H Impressions: Chest X-Ray 10/08/17 01:27 IMPRESSION: Moderate airspace opacities. Differential diagnosis includes CHF, pulmonary edema and multifocal pneumonia. Chest/Abdomen CTA 10/08/17 01:44 IMPRESSION: 1. Moderate airspace opacities. Differential diagnosis includes CHF, pulmonary edema and multifocal pneumonia. 2. Pulmonary arterial hypertension pattern. No pulmonary embolus. Assessment & Plan - Diagnosis (1) Acute respiratory failure Qualifiers: Respiratory failure complication: hypoxia Qualified Code(s): J96.01 - Acute respiratory failure with hypoxia Is this a current diagnosis for this admission?: Yes Plan: Wean off oxygen as tolerated (2) Acute exacerbation of congestive heart failure Qualifiers: Heart failure type: diastolic Qualified Code(s): I50.33 - Acute on chronic diastolic (congestive) heart failure Is this a current diagnosis for this admission?: Yes Plan: Continue current management. Order echocardiogram to evaluate for any changes (3) UTI (urinary tract infection) Qualifiers: Urinary tract infection type: acute cystitis Hematuria presence: without hematuria Qualified Code(s): N30.00 - Acute cystitis without hematuria Is this a current diagnosis for this admission?: Yes Plan: To change to Ceftin and discontinue Cipro (4) Diabetes mellitus Qualifiers: Diabetes mellitus type: type 2 Diabetes mellitus long wall mining machine helper insulin use: with chcf use Diabetes mellitus complication status: with unspecified complications Qualified Code(s): E11.8 - Type 2 diabetes mellitus with unspecified complications; Z79.4 - [facility] (current) use of insulin; Z79.4 - [facility] (current) use of insulin; Z79.4 - [facility] (current) use of insulin; Z79.4 - remote computer terminal operator (current) use of insulin Is this a current diagnosis for this admission?: Yes Plan: Patient will be placed on Humalog sliding scale and check bedside glucose before meals and at bedtime (5) Dementia Qualifiers: Dementia type: unspecified type Dementia behavioral disturbance: without behavioral disturbance Qualified Code(s): F03.90 - Unspecified dementia without behavioral disturbance Is this a current diagnosis for this admission?: Yes Plan: Continue outpatient regimen (6) HTN (hypertension) Qualifiers: Hypertension type: essential hypertension Qualified Code(s): I10 - Essential (primary) hypertension Is this a current diagnosis for this admission?: Yes Plan: Patient is off amlodipine which she uses as outpatient and blood pressure had been fairly controlled. Will add low-dose lisinopril and will follow up response (7) Pulmonary hypertension Is this a current diagnosis for this admission?: Yes Plan: Continue diuresis. Will order echocardiogram to evaluate for worsening of pulmonary hypertension when compared to 2017. Patient will be placed on DuoNeb' s. She states that she quit smoking many years ago. - Time Time Spent with patient: 15-24 minutes Medications reviewed and adjusted accordingly: Yes Anticipated discharge: Home with Homehealth Within: within 48 hours - Inpatient Certification Based on my medical assessment, after consideration of the patient's comorbidities, presenting symptoms, or acuity I expect that the services needed warrant INPATIENT care.: Yes I certify that my determination is in accordance with my understanding of Medicare's requirements for reasonable and necessary INPATIENT services [42 CFR 412.3e].: Yes Medical Necessity: Significant Comorbidiites Make Outpatient Treatment Too Risky , Need Close Monitoring Due to Risk of Patient Decompensation, Need for Nebulizer Therapy and Monitoring of Response
[2017-10-12] MEDS: IPRATROPIUM/ALBUTEROL 0.5-2.5 MG/3 ML AMPUL NEB SCH ×2 (14:24→20:10)
[2017-10-12] MEDS: INSULIN LISPRO 100 UNIT/ML 3 ML VIAL SUBCUT PRN ×2 (16:53→21:49)
[2017-10-12] MEDS: CEFUROXIME 500 MG TABLET PO SCH (17:11)
[2017-10-12] MEDS: ATORVASTATIN CALCIUM 20 MG TABLET PO SCH (21:49)
[2017-10-12] MEDS: DONEPEZIL HCL 5 MG TABLET PO SCH (21:50)
[2017-10-13] MEDS: LEVOTHYROXINE SODIUM 0.025 MG TABLET PO SCH (06:26)
[2017-10-13] MEDS: LEVOTHYROXINE SODIUM 0.112 MG TABLET PO SCH (06:26)
[2017-10-13] MEDS: HEPARIN SOD (PORCINE) 5,000 UNIT/ML 1 ML SYRINGE SUBCUT SCH ×3 (06:26→21:32)
[2017-10-13] MEDS: EPLERENONE 25 MG TABLET PO SCH (07:49)
[2017-10-13] MEDS: IPRATROPIUM/ALBUTEROL 0.5-2.5 MG/3 ML AMPUL NEB SCH ×3 (08:10→19:53)
[2017-10-13] MEDS: ANASTROZOLE 1 MG TABLET PO SCH (10:25)
[2017-10-13] MEDS: DOCUSATE SODIUM 100 MG CAPSULE PO SCH (10:25)
[2017-10-13] MEDS: INSULIN LISPRO 100 UNIT/ML 3 ML VIAL SUBCUT PRN ×3 (10:25→21:57)
[2017-10-13] MEDS: LISINOPRIL 5 MG TABLET PO SCH (10:25)
[2017-10-13] MEDS: CEFUROXIME 500 MG TABLET PO SCH ×2 (10:26→17:23)
[2017-10-13] MEDS: ASPIRIN 81 MG TABLET, ENT COATED PO SCH (10:26)
[2017-10-13] MEDS: FUROSEMIDE INJ/PF 40 MG/4 ML SDV IV SCH (10:27)
[2017-10-13] MEDS: POTASSIUM CHLORIDE 10 MEQ TABLET.SA PO SCH ×2 (10:27→21:33)
--- NOTE | 2017-10-13 11:13 | PDOC PROGRESS REPORT ---
Subjective Progress Note for:: 10/13/17 Subjective:: No complaints. is at bedside and is concerned about fluid buildup in her legs. He would like to be checked before she gets discharged. Patient still uses oxygen and accordingly she does not use oxygen at home Review of systems All organ systems evaluated and negative except as in subjective All laboratories and diagnostics had reviewed. Reason For Visit: DIASTOLIC HEART FAILURE, PULMONARY HTN Physical Exam Vital Signs: Temp Pulse Resp BP Pulse Ox 97.5 F 64 16 132/67 H 100 10/13/17 08:16 10/13/17 08:16 10/13/17 08:16 10/13/17 08:16 10/13/17 08:16 Intake & Output 10/12/17 10/13/17 10/14/17 06:59 06:59 06:59 Intake Total 1715 1398 Balance 1715 1398 Weight 68.9 kg 70.2 kg General appearance: PRESENT: cooperative, well-developed, well-nourished Head exam: PRESENT: atraumatic, normocephalic Eye exam: PRESENT: conjunctiva pink, EOMI, PERRLA Mouth exam: PRESENT: moist Neck exam: PRESENT: full ROM. ABSENT: JVD, lymphadenopathy, tenderness Respiratory exam: PRESENT: crackles - crackles noted left sided Cardiovascular exam: PRESENT: RRR. ABSENT: diastolic murmur, systolic murmur Vascular exam: PRESENT: normal capillary refill GI/Abdominal exam: PRESENT: normal bowel sounds, soft. ABSENT: tenderness Extremities exam: PRESENT: full ROM. ABSENT: pedal edema Musculoskeletal exam: PRESENT: ambulatory Neurological exam: PRESENT: alert, awake, oriented to person Psychiatric exam: PRESENT: appropriate affect, normal mood Skin exam: PRESENT: intact, normal color Results Laboratory Results: 10/11/17 04:37 10/11/17 04:37 10/08/17 10/09/17 10/09/17 09:33 05:24 05:24 Creatine Kinase 40 CK-MB (CK-2) 1.59 Troponin I 0.024 NT-Pro-B Natriuret Pep 10/11/17 04:37 Creatine Kinase CK-MB (CK-2) Troponin I NT-Pro-B Natriuret Pep 2550 H Impressions: Chest X-Ray 10/08/17 01:27 IMPRESSION: Moderate airspace opacities. Differential diagnosis includes CHF, pulmonary edema and multifocal pneumonia. Chest/Abdomen CTA 10/08/17 01:44 IMPRESSION: 1. Moderate airspace opacities. Differential diagnosis includes CHF, pulmonary edema and multifocal pneumonia. 2. Pulmonary arterial hypertension pattern. No pulmonary embolus. Assessment & Plan - Diagnosis (1) Acute respiratory failure Qualifiers: Respiratory failure complication: hypoxia Qualified Code(s): J96.01 - Acute respiratory failure with hypoxia Is this a current diagnosis for this admission?: Yes Plan: Wean off oxygen as tolerated (2) Acute exacerbation of congestive heart failure Qualifiers: Heart failure type: diastolic Qualified Code(s): I50.33 - Acute on chronic diastolic (congestive) heart failure Is this a current diagnosis for this admission?: Yes Plan: Continue current management. Echocardiogram pending. 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 insulin use: with petroleum terminal plant operator use Diabetes mellitus complication status: with unspecified complications Qualified Code(s): E11.8 - Type 2 diabetes mellitus with unspecified complications; Z79.4 - termite exterminator helper (current) use of insulin; Z79.4 - termite exterminator helper (current) use of insulin; Z79.4 - termite exterminator helper (current) use of insulin; Z79.4 - termite exterminator helper (current) use of insulin Is this a current diagnosis for this admission?: Yes Plan: Continue current treatment (5) Dementia Qualifiers: Dementia type: unspecified type Dementia behavioral disturbance: without behavioral disturbance Qualified Code(s): F03.90 - Unspecified dementia without behavioral disturbance Is this a current diagnosis for this admission?: Yes Plan: Continue outpatient regimen (6) HTN (hypertension) Qualifiers: Hypertension type: essential hypertension Qualified Code(s): I10 - Essential (primary) hypertension Is this a current diagnosis for this admission?: Yes Plan: Continue current management and to add amlodipine 5 mg p.o. daily (7) Pulmonary hypertension Is this a current diagnosis for this admission?: Yes Plan: Continue diuresis. Echocardiogram ordered and pending to evaluate for worsening of pulmonary hypertension when compared to 2017. Continue DuoNeb's. She states that she quit smoking many years ago. - Time Time Spent with patient: 15-24 minutes Medications reviewed and adjusted accordingly: Yes Anticipated discharge: Home with Homehealth Within: within 24 hours - Inpatient Certification Based on my medical assessment, after consideration of the patient's comorbidities, presenting symptoms, or acuity I expect that the services needed warrant INPATIENT care.: Yes I certify that my determination is in accordance with my understanding of Medicare's requirements for reasonable and necessary INPATIENT services [42 CFR 412.3e].: Yes Medical Necessity: Need Close Monitoring Due to Risk of Patient Decompensation, Need For Continuous Telemetry Monitoring
--- NOTE | 2017-10-13 12:17 | RADIOLOGY REPORT (SQ) ---
EXAM DESCRIPTION: CHEST SINGLE VIEW COMPLETED DATE/TIME: 10/13/2017 11:37 am REASON FOR STUDY: follow up COMPARISON: CT chest 10/08/2017, 06/15/2017 Chest films 10/08/2017, 06/04/2017 EXAM PARAMETERS: NUMBER OF VIEWS: One view. TECHNIQUE: Single frontal radiographic view of the chest acquired. RADIATION DOSE: NA LIMITATIONS: None. FINDINGS: LUNGS AND PLEURA: Partial clearing of the dense right upper lobe airspace disease compared to CT chest 10/08/2017. Resolved fluid in the major fissures bilaterally. Baseline appearance of the lungs with pulmonary fibrosis and low lung volumes. MEDIASTINUM AND HILAR STRUCTURES: No masses. Contour normal. HEART AND VASCULAR STRUCTURES: Moderate cardiomegaly. BONES: No acute findings. HARDWARE: Clips right breast post surgery. OTHER: No other significant finding. IMPRESSION: Partial clearing of the right upper lobe airspace disease compared to CT chest 10/08/2017 . Resolved bilateral pleural effusions. TECHNICAL DOCUMENTATION: JOB ID: [id number] [employer]- All Rights Reserved Reading location - IP/workstation name: [email or web address]
[2017-10-13] MEDS: AMLODIPINE BESYLATE 5 MG TABLET PO SCH (21:33)
[2017-10-13] MEDS: DONEPEZIL HCL 5 MG TABLET PO SCH (21:33)
[2017-10-13] MEDS: ATORVASTATIN CALCIUM 20 MG TABLET PO SCH (21:33)
[2017-10-14] MEDS: HEPARIN SOD (PORCINE) 5,000 UNIT/ML 1 ML SYRINGE SUBCUT SCH ×3 (05:27→22:31)
[2017-10-14] MEDS: LEVOTHYROXINE SODIUM 0.025 MG TABLET PO SCH (05:29)
[2017-10-14] MEDS: LEVOTHYROXINE SODIUM 0.112 MG TABLET PO SCH (05:30)
[2017-10-14 06:20] LABS: ABSOLUTE EOSINOPHILS # (AUTO) 0.2 10^3/uL (0.0-0.6); ABSOLUTE LYMPHOCYTES (AUTO) 1.2 10^3/uL (0.5-4.7); ABSOLUTE MONOCYTES (AUTO) 0.8 10^3/uL (0.1-1.4); ABSOLUTE NEUT (AUTO) 4.9 10^3/uL (1.7-8.2); BASOPHILS % (AUTO) 0.2 % (0-2); HEMATOCRIT 34.1 % (36.0-47.0); HEMOGLOBIN 11.3 g/dL (12.0-15.5); LYMPHOCYTES % (AUTO) 17.4 % (13-45); MEAN CORPUSCULAR VOLUME 91 fl (80-97); MONOCYTES % (AUTO) 11.5 % (3-13); PLATELET COUNT 676 10^3/uL (150-450); RED BLOOD COUNT 3.76 10^6/uL (3.72-5.28); RED CELL DISTRIBUTION WIDTH 18.7 % (11.5-14.0); SEGMENTED NEUTROPHILS % (AUTO) 67.9 % (42-78); TOTAL CELLS COUNTED % (AUTO) 100 %; WHITE BLOOD COUNT 7.1 10^3/uL (4.0-10.5)
[2017-10-14 06:37] LABS: ANION GAP 8 (5-19); BLOOD UREA NITROGEN 14 mg/dL (7-20); CARBON DIOXIDE 33 mmol/L (22-30); CHLORIDE 100 mmol/L (98-107); GLUCOSE 152 mg/dL (75-110); POTASSIUM 5.1 mmol/L (3.6-5.0); SODIUM 141.4 mmol/L (137-145)
[2017-10-14] MEDS: EPLERENONE 25 MG TABLET PO SCH (08:15)
[2017-10-14] MEDS: IPRATROPIUM/ALBUTEROL 0.5-2.5 MG/3 ML AMPUL NEB SCH ×3 (08:20→20:02)
[2017-10-14] MEDS: INSULIN LISPRO 100 UNIT/ML 3 ML VIAL SUBCUT PRN ×4 (08:25→22:31)
--- NOTE | 2017-10-14 08:40 | XCELERA REPORT ---
[address] [address] Transthoracic Echocardiogram Report Name: SANDY DANG Age: 87 yrs Gender: Female : 1930 Patient Status: Inpatient Patient Location: [address] [place] [address] Study Date: 10/13/2017 01:22 PM Height: 65 in Weight: 151 lb BSA: 1.8 m2 Procedure: A complete two-dimensional transthoracic echocardiogram was performed (2D, M-mode, spectral and color flow Doppler). The study was technically adequate with some images being suboptimal in quality. Reason For Study: eval for pulmonay hypertension Ordering Physician: CINDI GARCIA Performed By: Mercedez Thompson Interpretation Summary The left ventricular ejection fraction is within normal limits. There is moderate concentric left ventricular hypertrophy. The left ventricle is grossly normal size. Doppler measurements suggest pseudonormalized left ventricular relaxation, which is associated with grade II/IV or mild to moderate diastolic dysfunction Wall motion cannot be accurately commented on, but no definite regional wall motion abnormalities noted. The right ventricular systolic function is normal. The left atrium is moderately dilated. The right atrium is mildly dilated. There is a mild to moderate amount of mitral regurgitation There is no mitral valve stenosis. There is mild aortic stenosis There is a peak gradient of 25 mm of Hg. There is a mild amount of aortic regurgitation There is a mild amount of tricuspid regurgitation There is mild pulmonary hypertension by echo Right ventricular systolic pressure is estimated to be elevated at 30- 40mmHg. The aortic root is not well visualized but is probably normal size. The inferior vena cava appeared normal and decreased > 50% with respiration (RAP 5-10 mmHg) There is no pericardial effusion. MMode/2D Measurements & Calculations RVDd: 3.2 cm LVIDd: 4.5 cm FS: 35.0 % Ao root diam: 3.5 cm IVSd: 1.4 cm LVIDs: 2.9 cm EDV(Teich): 92.7 ml LVPWd: 1.4 cm ESV(Teich): 32.9 ml Ao root area: 9.4 cm2 EF(Teich): 64.5 % LA dimension: 5.3 cm LVOT diam: 1.7 cm LVOT area: 2.2 cm2 Doppler Measurements & Calculations MV E max mathew: MV P1/2t max mathew: Ao V2 max: AI max mathew: 72.1 cm/sec 72.1 cm/sec 245.1 cm/sec 417.1 cm/sec MV A max mathew: MV P1/2t: 53.7 msec Ao max PG: AI max P.3 cm/sec MVA(P1/2t): 4.1 cm2 24.0 mmHg 69.6 mmHg MV E/A: 0.54 MV dec slope: Ao V2 mean: AI dec slope: 393.1 cm/sec2 169.0 cm/sec 166.6 cm/sec2 Ao mean PG: AI P1/2t: 13.0 mmHg 733.2 msec Ao V2 VTI: 54.7 cm ROSALBA(I,D): 0.94 cm2 ROSALBA(V,D): 0.90 cm2 LV V1 max PG: SV(LVOT): 51.6 ml PA V2 max: PI end-d mathew: 4.0 mmHg 87.9 cm/sec 115.5 cm/sec LV V1 mean PG: PA max P.0 mmHg 3.1 mmHg LV V1 max: 100.3 cm/sec LV V1 mean: 63.8 cm/sec LV V1 VTI: 23.3 cm TR max mathew: 261.5 cm/sec TR max P.3 mmHg Left Ventricle The left ventricle is grossly normal size. There is moderate concentric left ventricular hypertrophy. The left ventricular ejection fraction is within normal limits. Doppler measurements suggest pseudonormalized left ventricular relaxation, which is associated with grade II/IV or mild to moderate diastolic dysfunction. Wall motion cannot be accurately commented on, but no definite regional wall motion abnormalities noted. Right Ventricle The right ventricle is grossly normal size. There is normal right ventricular wall thickness. The right ventricular systolic function is normal. Atria The right atrium is mildly dilated. The left atrium is moderately dilated. Interarterial septum not well visualized and not well dopplered. Cannot comment on ASD/PFO presence. Mitral Valve There is moderate mitral leaflet calcification. There is moderate mitral annular calcification. There is no mitral valve stenosis. There is a mild to moderate amount of mitral regurgitation. Aortic Valve The aortic valve is moderately calcified. There is mild aortic stenosis. There is a peak gradient of 25 mm of Hg. There is a mild amount of aortic regurgitation. Tricuspid Valve The tricuspid valve is not well visualized, but is grossly normal. There is no tricuspid stenosis. There is a mild amount of tricuspid regurgitation. There is mild pulmonary hypertension by echo. Right ventricular systolic pressure is estimated to be elevated at 30-40mmHg. Pulmonic Valve The pulmonic valve is not well visualized. Great Vessels The aortic root is not well visualized but is probably normal size. The inferior vena cava appeared normal and decreased > 50% with respiration (RAP 5-10 mmHg). Effusions There is no pericardial effusion. : CINDI GARCIA > Roel Cordero
[2017-10-14] MEDS: ANASTROZOLE 1 MG TABLET PO SCH (10:06)
[2017-10-14] MEDS: LISINOPRIL 5 MG TABLET PO SCH (10:07)
[2017-10-14] MEDS: DOCUSATE SODIUM 100 MG CAPSULE PO SCH (10:07)
[2017-10-14] MEDS: ASPIRIN 81 MG TABLET, ENT COATED PO SCH (10:07)
[2017-10-14] MEDS: CEFUROXIME 500 MG TABLET PO SCH ×2 (10:07→17:22)
[2017-10-14] MEDS: FUROSEMIDE INJ/PF 40 MG/4 ML SDV IV SCH ×2 (10:07→22:32)
[2017-10-14] MEDS: POTASSIUM CHLORIDE 10 MEQ TABLET.SA PO SCH (10:08)
--- NOTE | 2017-10-14 17:52 | PDOC PROGRESS REPORT ---
Subjective Progress Note for:: 10/14/17 Subjective:: No complaints. Patient appears to be more confused today than on previous assessment Review of systems All organ systems evaluated and negative except as in subjective All laboratories and diagnostics had reviewed. Reason For Visit: DIASTOLIC HEART FAILURE, PULMONARY HTN Physical Exam Vital Signs: Temp Pulse Resp BP Pulse Ox 97.7 F 88 18 132/61 H 94 10/14/17 16:15 10/14/17 16:15 10/14/17 16:15 10/14/17 16:15 10/14/17 16:15 Intake & Output 10/13/17 10/14/17 10/15/17 06:59 06:59 06:59 Intake Total 1398 1154 473 Balance 1398 1154 473 Weight 70.2 kg 68.1 kg General appearance: PRESENT: no acute distress, cooperative, well-developed, well-nourished Head exam: PRESENT: atraumatic, normocephalic Eye exam: PRESENT: conjunctiva pink, EOMI, PERRLA Ear exam: PRESENT: normal external ear exam Neck exam: PRESENT: full ROM. ABSENT: JVD, lymphadenopathy, tenderness Respiratory exam: PRESENT: crackles, decreased breath sounds Cardiovascular exam: PRESENT: RRR. ABSENT: diastolic murmur, systolic murmur Vascular exam: PRESENT: normal capillary refill GI/Abdominal exam: PRESENT: normal bowel sounds, soft. ABSENT: tenderness Extremities exam: PRESENT: full ROM. ABSENT: pedal edema Musculoskeletal exam: PRESENT: ambulatory Neurological exam: PRESENT: alert, oriented to person, other - Somnolent Psychiatric exam: PRESENT: appropriate affect, normal mood Skin exam: PRESENT: intact, normal color Results Laboratory Results: 10/14/17 05:39 10/14/17 05:39 10/14/17 10/14/17 05:39 05:39 WBC 7.1 RBC 3.76 Hgb 11.3 L Hct 34.1 L MCV 91 MCH 30.0 MCHC 33.0 RDW 18.7 H Plt Count 676 H Seg Neutrophils % 67.9 Lymphocytes % 17.4 Monocytes % 11.5 Eosinophils % 3.0 Basophils % 0.2 Absolute Neutrophils 4.9 Absolute Lymphocytes 1.2 Absolute Monocytes 0.8 Absolute Eosinophils 0.2 Absolute Basophils 0.0 Sodium 141.4 Potassium 5.1 H Chloride 100 Carbon Dioxide 33 H Anion Gap 8 BUN 14 Creatinine 0.48 L Est GFR ( Amer) > 60 Est GFR (Non-Af Amer) > 60 Glucose 152 H Calcium 9.0 Magnesium 1.9 10/08/17 10/09/17 10/09/17 09:33 05:24 05:24 Creatine Kinase 40 CK-MB (CK-2) 1.59 Troponin I 0.024 NT-Pro-B Natriuret Pep 10/11/17 04:37 Creatine Kinase CK-MB (CK-2) Troponin I NT-Pro-B Natriuret Pep 2550 H Impressions: Chest/Abdomen CTA 10/08/17 01:44 IMPRESSION: 1. Moderate airspace opacities. Differential diagnosis includes CHF, pulmonary edema and multifocal pneumonia. 2. Pulmonary arterial hypertension pattern. No pulmonary embolus. Chest X-Ray 10/13/17 00:00 IMPRESSION: Partial clearing of the right upper lobe airspace disease compared to CT chest 10/08/2017. Resolved bilateral pleural effusions. Assessment & Plan - Diagnosis (1) Acute respiratory failure Qualifiers: Respiratory failure complication: hypoxia Qualified Code(s): J96.01 - Acute respiratory failure with hypoxia Is this a current diagnosis for this admission?: Yes Plan: Wean off oxygen as tolerated. Order swallowing study since I am concerned that patient may also be aspirating (2) Acute exacerbation of congestive heart failure Qualifiers: Heart failure type: diastolic Qualified Code(s): I50.33 - Acute on chronic diastolic (congestive) heart failure Is this a current diagnosis for this admission?: Yes Plan: Continue current management. Echocardiogram result noted and demonstrate pulmonary hypertension. Chest x-ray noted demonstrating persistent right-sided infiltrate with some slight improvement (3) UTI (urinary tract infection) Qualifiers: Urinary tract infection type: acute cystitis Hematuria presence: without hematuria Qualified Code(s): N30.00 - Acute cystitis without hematuria Is this a current diagnosis for this admission?: Yes Plan: Continue Ceftin (4) Diabetes mellitus Qualifiers: Diabetes mellitus type: type 2 Diabetes mellitus termite inspector insulin use: with fpc use Diabetes mellitus complication status: with unspecified complications Qualified Code(s): E11.8 - Type 2 diabetes mellitus with unspecified complications; Z79.4 - shelter (current) use of insulin; Z79.4 - shelter (current) use of insulin; Z79.4 - tank terminal gauger (current) use of insulin; Z79.4 - shelter (current) use of insulin Is this a current diagnosis for this admission?: Yes Plan: Continue current treatment (5) Dementia Qualifiers: Dementia type: unspecified type Dementia behavioral disturbance: without behavioral disturbance Qualified Code(s): F03.90 - Unspecified dementia without behavioral disturbance Is this a current diagnosis for this admission?: Yes Plan: Continue outpatient regimen (6) HTN (hypertension) Qualifiers: Hypertension type: essential hypertension Qualified Code(s): I10 - Essential (primary) hypertension Is this a current diagnosis for this admission?: Yes Plan: Continue current management (7) Pulmonary hypertension Is this a current diagnosis for this admission?: Yes Plan: Continue diuresis. Echocardiogram noted. - Time Time Spent with patient: 15-24 minutes Medications reviewed and adjusted accordingly: Yes Anticipated discharge: Home with Homehealth Within: within 48 hours - Inpatient Certification Based on my medical assessment, after consideration of the patient's comorbidities, presenting symptoms, or acuity I expect that the services needed warrant INPATIENT care.: Yes I certify that my determination is in accordance with my understanding of Medicare's requirements for reasonable and necessary INPATIENT services [42 CFR 412.3e].: Yes Medical Necessity: Significant Comorbidiites Make Outpatient Treatment Too Risky , Need Close Monitoring Due to Risk of Patient Decompensation
[2017-10-14] MEDS: AMLODIPINE BESYLATE 5 MG TABLET PO SCH (22:32)
[2017-10-14] MEDS: ATORVASTATIN CALCIUM 20 MG TABLET PO SCH (22:32)
[2017-10-14] MEDS: DONEPEZIL HCL 5 MG TABLET PO SCH (22:32)
[2017-10-15] MEDS: LEVOTHYROXINE SODIUM 0.112 MG TABLET PO SCH (05:30)
[2017-10-15] MEDS: LEVOTHYROXINE SODIUM 0.025 MG TABLET PO SCH (05:30)
[2017-10-15] MEDS: HEPARIN SOD (PORCINE) 5,000 UNIT/ML 1 ML SYRINGE SUBCUT SCH ×3 (05:31→22:16)
[2017-10-15] MEDS: IPRATROPIUM/ALBUTEROL 0.5-2.5 MG/3 ML AMPUL NEB SCH ×3 (08:22→21:04)
[2017-10-15] MEDS: FUROSEMIDE INJ/PF 40 MG/4 ML SDV IV SCH (09:30)
[2017-10-15] MEDS: ANASTROZOLE 1 MG TABLET PO SCH (09:30)
[2017-10-15] MEDS: EPLERENONE 25 MG TABLET PO SCH (09:31)
[2017-10-15] MEDS: CEFUROXIME 500 MG TABLET PO SCH ×2 (09:31→17:44)
[2017-10-15] MEDS: DOCUSATE SODIUM 100 MG CAPSULE PO SCH (09:32)
[2017-10-15] MEDS: LISINOPRIL 5 MG TABLET PO SCH (09:32)
[2017-10-15] MEDS: ASPIRIN 81 MG TABLET, ENT COATED PO SCH (09:32)
[2017-10-15] MEDS ORDERED: FUROSEMIDE INJ/PF 40 MG/4 ML SDV IV SCH (10:52)
--- NOTE | 2017-10-15 14:17 | PDOC PROGRESS REPORT ---
Subjective Progress Note for:: 10/15/17 Subjective:: No complaints. Patient appears quite somnolent Review of systems Unable to obtain due to patient's mental status All laboratories and diagnostics had reviewed. Reason For Visit: DIASTOLIC HEART FAILURE, PULMONARY HTN Physical Exam Vital Signs: Temp Pulse Resp BP Pulse Ox 98.0 F 80 16 119/72 93 10/15/17 04:03 10/15/17 07:00 10/15/17 04:03 10/15/17 04:03 10/15/17 04:03 Intake & Output 10/14/17 10/15/17 10/16/17 06:59 06:59 06:59 Intake Total 1154 1438 Balance 1154 1438 Weight 68.1 kg 68.8 kg General appearance: PRESENT: no acute distress, cooperative, well-developed, well-nourished Head exam: PRESENT: atraumatic, normocephalic Eye exam: PRESENT: conjunctiva pink, EOMI, PERRLA Ear exam: PRESENT: normal external ear exam Mouth exam: PRESENT: moist Neck exam: PRESENT: full ROM. ABSENT: JVD, lymphadenopathy, tenderness Respiratory exam: PRESENT: crackles Cardiovascular exam: PRESENT: RRR. ABSENT: diastolic murmur, systolic murmur Vascular exam: ABSENT: normal capillary refill GI/Abdominal exam: PRESENT: normal bowel sounds, soft. ABSENT: tenderness Extremities exam: PRESENT: full ROM. ABSENT: pedal edema Musculoskeletal exam: ABSENT: ambulatory Neurological exam: PRESENT: altered, oriented to person Psychiatric exam: PRESENT: appropriate affect, normal mood Skin exam: PRESENT: normal color Results Laboratory Results: 10/14/17 05:39 10/14/17 05:39 10/08/17 10/09/17 10/09/17 09:33 05:24 05:24 Creatine Kinase 40 CK-MB (CK-2) 1.59 Troponin I 0.024 NT-Pro-B Natriuret Pep 10/11/17 04:37 Creatine Kinase CK-MB (CK-2) Troponin I NT-Pro-B Natriuret Pep 2550 H Impressions: Chest/Abdomen CTA 10/08/17 01:44 IMPRESSION: 1. Moderate airspace opacities. Differential diagnosis includes CHF, pulmonary edema and multifocal pneumonia. 2. Pulmonary arterial hypertension pattern. No pulmonary embolus. Chest X-Ray 10/13/17 00:00 IMPRESSION: Partial clearing of the right upper lobe airspace disease compared to CT chest 10/08/2017. Resolved bilateral pleural effusions. Assessment & Plan - Diagnosis (1) Acute respiratory failure Qualifiers: Respiratory failure complication: hypoxia Qualified Code(s): J96.01 - Acute respiratory failure with hypoxia Is this a current diagnosis for this admission?: Yes Plan: Patient saturating well at room air. Evaluated by speech therapy and recommended changing consistency of food. (2) Acute exacerbation of congestive heart failure Qualifiers: Heart failure type: diastolic Qualified Code(s): I50.33 - Acute on chronic diastolic (congestive) heart failure Is this a current diagnosis for this admission?: Yes Plan: Continue current management. Echocardiogram result noted and demonstrated pulmonary hypertension. Repeat chest x-ray to follow-up on right-sided infiltrate however suspect that may be long-standing finding due to advanced pulmonary hypertension. Anticipate to discharge in a.m. (3) UTI (urinary tract infection) Qualifiers: Urinary tract infection type: acute cystitis Hematuria presence: without hematuria Qualified Code(s): N30.00 - Acute cystitis without hematuria Is this a current diagnosis for this admission?: Yes Plan: Grew higher than 100,000 colonies of Klebsiella pneumonia. Continue Ceftin (4) Diabetes mellitus Qualifiers: Diabetes mellitus type: type 2 Diabetes mellitus mcfp insulin use: with mcfp use Diabetes mellitus complication status: with unspecified complications Qualified Code(s): E11.8 - Type 2 diabetes mellitus with unspecified complications; Z79.4 - superintendent marine oil terminal (current) use of insulin; Z79.4 - detention (current) use of insulin; Z79.4 - superintendent marine oil terminal (current) use of insulin; Z79.4 - superintendent marine oil terminal (current) use of insulin Is this a current diagnosis for this admission?: Yes Plan: Continue current treatment (5) Dementia Qualifiers: Dementia type: unspecified type Dementia behavioral disturbance: without behavioral disturbance Qualified Code(s): F03.90 - Unspecified dementia without behavioral disturbance Is this a current diagnosis for this admission?: Yes Plan: Continue outpatient regimen (6) HTN (hypertension) Qualifiers: Hypertension type: essential hypertension Qualified Code(s): I10 - Essential (primary) hypertension Is this a current diagnosis for this admission?: Yes Plan: Continue current management (7) Pulmonary hypertension Is this a current diagnosis for this admission?: Yes Plan: Continue diuresis. Echocardiogram noted. - Time Time Spent with patient: 15-24 minutes Medications reviewed and adjusted accordingly: Yes Anticipated discharge: Home with Homehealth Within: within 24 hours - Inpatient Certification Based on my medical assessment, after consideration of the patient's comorbidities, presenting symptoms, or acuity I expect that the services needed warrant INPATIENT care.: Yes I certify that my determination is in accordance with my understanding of Medicare's requirements for reasonable and necessary INPATIENT services [42 CFR 412.3e].: Yes Medical Necessity: Need Close Monitoring Due to Risk of Patient Decompensation
[2017-10-15] MEDS: AMLODIPINE BESYLATE 5 MG TABLET PO SCH (21:55)
[2017-10-15] MEDS: DONEPEZIL HCL 5 MG TABLET PO SCH (22:16)
[2017-10-15] MEDS: ATORVASTATIN CALCIUM 20 MG TABLET PO SCH (22:16)
[2017-10-15] MEDS: INSULIN LISPRO 100 UNIT/ML 3 ML VIAL SUBCUT PRN (22:16)
[2017-10-16 05:40] LABS: ABSOLUTE EOSINOPHILS # (AUTO) 0.2 10^3/uL (0.0-0.6); ABSOLUTE LYMPHOCYTES (AUTO) 1.1 10^3/uL (0.5-4.7); ABSOLUTE MONOCYTES (AUTO) 1.2 10^3/uL (0.1-1.4); ABSOLUTE NEUT (AUTO) 5.7 10^3/uL (1.7-8.2); BASOPHILS % (AUTO) 0.6 % (0-2); EOSINOPHILS % (AUTO) 2.4 % (0-6); HEMATOCRIT 31.4 % (36.0-47.0); HEMOGLOBIN 10.5 g/dL (12.0-15.5); LYMPHOCYTES % (AUTO) 13.4 % (13-45); MEAN CORPUSCULAR HEMOGLOBIN 30.6 pg (27.0-33.4); MEAN CORPUSCULAR HGB CONC 33.6 g/dL (32.0-36.0); MEAN CORPUSCULAR VOLUME 91 fl (80-97); PLATELET COUNT 722 10^3/uL (150-450); RED BLOOD COUNT 3.45 10^6/uL (3.72-5.28); RED CELL DISTRIBUTION WIDTH 18.5 % (11.5-14.0); SEGMENTED NEUTROPHILS % (AUTO) 69.6 % (42-78); TOTAL CELLS COUNTED % (AUTO) 100 %; WHITE BLOOD COUNT 8.2 10^3/uL (4.0-10.5)
[2017-10-16 06:00] LABS: ANION GAP 9 (5-19); BLOOD UREA NITROGEN 24 mg/dL (7-20); CARBON DIOXIDE 30 mmol/L (22-30); CHLORIDE 101 mmol/L (98-107); GLUCOSE 172 mg/dL (75-110); POTASSIUM 4.9 mmol/L (3.6-5.0); SODIUM 140.4 mmol/L (137-145)
[2017-10-16] MEDS: LEVOTHYROXINE SODIUM 0.025 MG TABLET PO SCH (06:02)
[2017-10-16] MEDS: LEVOTHYROXINE SODIUM 0.112 MG TABLET PO SCH (06:02)
[2017-10-16] MEDS: HEPARIN SOD (PORCINE) 5,000 UNIT/ML 1 ML SYRINGE SUBCUT SCH (06:02)
--- NOTE | 2017-10-16 08:13 | RADIOLOGY REPORT (SQ) ---
EXAM DESCRIPTION: CHEST SINGLE VIEW COMPLETED DATE/TIME: 10/16/2017 7:27 am REASON FOR STUDY: follow up COMPARISON: 10/13/2017 EXAM PARAMETERS: NUMBER OF VIEWS: One view. TECHNIQUE: Single frontal radiographic view of the chest acquired. RADIATION DOSE: NA LIMITATIONS: None. FINDINGS: LUNGS AND PLEURA: Stable patchy right upper lobe airspace disease. No new opacities. No significant pleural effusion or pneumothorax. MEDIASTINUM AND HILAR STRUCTURES: No masses. Contour normal. HEART AND VASCULAR STRUCTURES: Heart stable in size. Normal vasculature. BONES: No acute findings. HARDWARE: None in the chest. OTHER: No other significant finding. IMPRESSION: STABLE PATCHY RIGHT UPPER LOBE AIRSPACE DISEASE. TECHNICAL DOCUMENTATION: JOB ID: [id number] [employer]- All Rights Reserved Reading location - IP/workstation name: [email or web address]
[2017-10-16] MEDS: IPRATROPIUM/ALBUTEROL 0.5-2.5 MG/3 ML AMPUL NEB SCH (08:41)
[2017-10-16] MEDS: CEFUROXIME 500 MG TABLET PO SCH (09:52)
[2017-10-16] MEDS: LISINOPRIL 5 MG TABLET PO SCH (09:52)
[2017-10-16] MEDS: ASPIRIN 81 MG TABLET, ENT COATED PO SCH (09:52)
[2017-10-16] MEDS: ANASTROZOLE 1 MG TABLET PO SCH (09:55)
[2017-10-16] MEDS: EPLERENONE 25 MG TABLET PO SCH (09:58)
[2017-10-16] MEDS: DOCUSATE SODIUM 100 MG CAPSULE PO SCH (09:58)
[2017-10-16] MEDS ORDERED: FUROSEMIDE INJ/PF 40 MG/4 ML SDV IV SCH (10:00)
[2017-10-16 11:13] VITALS: BP 124/50
[2017-10-16] MEDS ORDERED: AMLODIPINE BESYLATE 5 MG TABLET PO SCH (22:00)
--- NOTE | 2017-10-17 18:33 | PDOC DISCHARGE SUMMARY ---
General - Admit/Disc Date/PCP Admission Date/Primary Care Provider: 10/08/17 04:47 CORAZON CARRION PA-C Discharge Date: 10/16/17 - Discharge Diagnosis (1) Acute on chronic diastolic CHF (congestive heart failure) Is this a current diagnosis for this admission?: Yes (2) Pulmonary hypertension Is this a current diagnosis for this admission?: Yes (3) Acute respiratory failure Is this a current diagnosis for this admission?: Yes (4) UTI (urinary tract infection) Is this a current diagnosis for this admission?: Yes (5) Diabetes mellitus Is this a current diagnosis for this admission?: Yes (6) Dementia Is this a current diagnosis for this admission?: Yes (7) HTN (hypertension) Is this a current diagnosis for this admission?: Yes (8) Debility Is this a current diagnosis for this admission?: Yes (9) HTN (hypertension) Is this a current diagnosis for this admission?: Yes - Additional Information Resuscitation Status: Full Code Discharge Diet: Cardiac, Diabetic Discharge Activity: Activity As Tolerated, Balance Activity w/Rest, Weigh Daily Prescriptions: Cefuroxime Axetil [Ceftin 500 mg Tablet] 500 mg PO BID #12 tablet Furosemide 20 mg PO DAILY #30 tablet Home Medications: Amlodipine Besylate [Norvasc 10 mg Tablet] 10 mg PO DAILY 10/08/17 Calcium Carbonate/Vitamin D3 [Oyster Shell 500-Vit D3 200 Tb] 1 tab PO DAILY Cholestyramine/Aspartame [Prevalite Packet] 4 gm PO DAILY 10/08/17 Donepezil HCl [Aricept] 10 mg PO QHS 10/08/17 Glimepiride [Amaryl 1 mg Tablet] 1 mg PO BID 10/08/17 Levothyroxine Sodium [Synthroid] 137 mcg PO DAILY 10/08/17 Losartan Potassium [Cozaar 100 mg Tablet] 100 mg PO DAILY 10/08/17 Metformin HCl [Glucophage 500 mg Tablet] 500 mg PO BIDBS 10/08/17 Omeprazole 20 mg PO DAILY 10/08/17 Potassium Chloride [Klor-Con Sprinkle] 10 meq PO DAILY 10/08/17 Anastrozole [Arimidex 1 mg Tablet] 1 mg PO DAILY tablet 10/16/17 Atorvastatin Calcium [Lipitor 20 mg Tablet] 20 mg PO QHS tablet 10/16/17 Cefuroxime Axetil [Ceftin 500 mg Tablet] 500 mg PO BID #12 tablet 10/16/17 Donepezil HCl [Aricept 5 mg Tablet] 10 mg PO QHS tablet 10/16/17 Eplerenone [Inspra 25 mg Tablet] 50 mg PO QAM tablet 10/16/17 Furosemide 20 mg PO DAILY #30 tablet 10/16/17 History of Present Illness History of Present Illness: SANDY DANG is a 87 year old female with a past medical history of dementia , diastolic heart failure, hypertension, diabetes, generalized debility and remote breast cancer. She presented with 12 hours of shortness of breath and a nonproductive cough denying chest pain, palpitations, nausea vomiting or diaphoresis. Spouse was at bedside verifies blood pressure in the 140 range systolic, blood sugars 160-120. No new medications. In the emergency room she is found to have pulmonary edema and received supplemental oxygen and Lasix. Hospital Course Hospital Course: Patient was admitted to [facility] with an initial impression of acute on chronic diastolic congestive heart failure. Patient was diuresed and blood pressure was controlled improving complaints of shortness of breath and edema. Patient also has pulmonary hypertension which is deemed to be due to diastolic dysfunction. Patient was treated for urinary tract infection due to Klebsiella pneumonia. She was transitioned to Ceftin 500 mg 1 p.o. twice daily and she is to continue on this medicine for 5 days following discharge. Swallowing was evaluated and food consistency was changed to soft mechanical.Patient suffers from chronic debility and patient was offered as well as for her to go to half-way facility versus home health.Her declined both avenues since he felt he was perfectly capable of taking care of his and did not want any intruders in the home. Since patient had achieved maximum benefit of hospitalization stay prompted to discharge Physical Exam Vital Signs: Temp Pulse Resp BP Pulse Ox 98.2 F 72 16 131/57 H 93 10/16/17 07:17 10/16/17 08:41 10/16/17 08:41 10/16/17 07:17 10/16/17 07:17 Intake & Output 10/15/17 10/16/17 10/17/17 06:59 06:59 06:59 Intake Total 1438 1974 Balance 1438 1974 Weight 68.8 kg 67.4 kg General appearance: PRESENT: no acute distress, cooperative, well-developed, well-nourished Head exam: PRESENT: atraumatic, normocephalic Eye exam: PRESENT: conjunctiva pink, EOMI, PERRLA Ear exam: PRESENT: normal external ear exam Mouth exam: PRESENT: moist Neck exam: PRESENT: full ROM. ABSENT: JVD, lymphadenopathy, tenderness Respiratory exam: PRESENT: other - Soft crackles heard throughout right side with adequate movement of air Cardiovascular exam: PRESENT: RRR. ABSENT: diastolic murmur, systolic murmur Vascular exam: PRESENT: normal capillary refill GI/Abdominal exam: PRESENT: normal bowel sounds, soft. ABSENT: tenderness Extremities exam: PRESENT: full ROM. ABSENT: pedal edema Musculoskeletal exam: ABSENT: ambulatory Neurological exam: PRESENT: alert, awake, oriented to person, oriented to place. ABSENT: oriented to time Psychiatric exam: PRESENT: appropriate affect, normal mood Skin exam: PRESENT: intact, normal color Results Laboratory Results: 10/16/17 05:19 10/16/17 05:19 10/16/17 10/16/17 05:19 05:19 WBC 8.2 RBC 3.45 L Hgb 10.5 L Hct 31.4 L MCV 91 MCH 30.6 MCHC 33.6 RDW 18.5 H Plt Count 722 H Seg Neutrophils % 69.6 Lymphocytes % 13.4 Monocytes % 14.0 H Eosinophils % 2.4 Basophils % 0.6 Absolute Neutrophils 5.7 Absolute Lymphocytes 1.1 Absolute Monocytes 1.2 Absolute Eosinophils 0.2 Absolute Basophils 0.0 Sodium 140.4 Potassium 4.9 Chloride 101 Carbon Dioxide 30 Anion Gap 9 BUN 24 H Creatinine 0.46 L Est GFR ( Amer) > 60 Est GFR (Non-Af Amer) > 60 Glucose 172 H Calcium 9.0 10/08/17 10/09/17 10/09/17 09:33 05:24 05:24 Creatine Kinase 40 CK-MB (CK-2) 1.59 Troponin I 0.024 NT-Pro-B Natriuret Pep 10/11/17 04:37 Creatine Kinase CK-MB (CK-2) Troponin I NT-Pro-B Natriuret Pep 2550 H Impressions: Chest/Abdomen CTA 10/08/17 01:44 IMPRESSION: 1. Moderate airspace opacities. Differential diagnosis includes CHF, pulmonary edema and multifocal pneumonia. 2. Pulmonary arterial hypertension pattern. No pulmonary embolus. Chest X-Ray 10/16/17 00:00 IMPRESSION: STABLE PATCHY RIGHT UPPER LOBE AIRSPACE DISEASE. Qualifiers - * PATIENT BEING DISCHARGED WITH ANY OF THE FOLLOWING DIAGNOSIS: Heart Failure HF Pt being discharged on ACEI for LVEF less than 40%?: Yes HF Pt being discharged on ARBS for LVEF less than 40%?: No Reason(s) for not prescribing ARBS:: Tx not tolerated HF Pt with Afib discharged with Warfarin?: No Reason(s) for not prescribing Warfarin:: Procedure Contraindicated HF Pt discharged on evidence-based Beta Kofi:: Yes Plan Discharge Plan: Discharge to home Time Spent: Greater than 30 Minutes
== END 2017-10-16 12:20 | disposition home or self-care (01) | DRG 189 ==
LOC: ER 01:18 → EH 04:47 → 3W 06:17
PROVIDERS: ADMIT Internal Medicine; ATTEND Internal Medicine
DX: J96.01 Acute respiratory failure with hypoxia (principal); J81.0 Acute pulmonary edema; I50.33 Acute on chronic diastolic (congestive) heart failure; N30.00 Acute cystitis without hematuria; I11.0 Hypertensive heart disease with heart failure; E11.9 Type 2 diabetes mellitus without complications; E78.00 Pure hypercholesterolemia, unspecified; F03.90 Unspecified dementia, unspecified severity, without behavioral disturbance, psychotic disturbance, mood disturbance, and anxiety; I27.20 Pulmonary hypertension, unspecified; C50.911 Malignant neoplasm of unspecified site of right female breast; B96.1 Klebsiella pneumoniae [K. pneumoniae] as the cause of diseases classified elsewhere; Z90.11 Acquired absence of right breast and nipple; Z79.84 Long term (current) use of oral hypoglycemic drugs; Z79.899 Other long term (current) drug therapy
CPT/HCPCS: 36415; 51701; 71045; 71275; 80048; 80053; 81001; 82550; 82553; 82803; 82962; 83605; 83735; 83880; 84484; 85025; 85610; 87040; 87086; 87088; 87186; 93005; 93010; 93306; 94640; 99291; G8978-GP; G8979-GP; G8996-GN; G8997-GN; G8998-GN; J0696; J0744; J1644; J1815; J1940; J3490; J7620

== ENCOUNTER 2017-12-14 02:28 | Inpatient (IN) | payer MEDICARE, OTHER ==
--- NOTE | 2017-12-14 02:36 | ER Document Report ---
ED Respiratory Problem - General Chief Complaint: Shortness Of Breath Stated Complaint: SHORTNESS OF BREATH Time Seen by Provider: 12/14/17 02:33 Notes: The patient is a 87 year old female with a past medical history of dementia, diastolic heart failure, hypertension, diabetes, generalized debility and remote breast cancer, presents with increased shortness of breath over the past hour, according to EMS and her . Her placed a home pulse ox, which revealed a O2 sat of 70%. This improved when EMS placed a NRB. Patient denies cough, fevers, chest pain or increased leg swelling. History is difficult to obtain from the patient due to her underlying dementia. TRAVEL OUTSIDE OF THE [place] IN LAST 30 DAYS: No - Related Data Allergies/Adverse Reactions: diazepam [From Valium] Allergy (Verified 05/14/17 09:58) Past Medical History - General Information source: Patient, Relative, Emergency Med Personnel Cannot obtain history due to: Dementia - Social History Smoking Status: Unknown if Ever Smoked Family History: CAD - Past Medical History Cardiac Medical History: Reports: Hx Congestive Heart Failure, Hx Hypercholesterolemia, Hx Hypertension Denies: Hx Coronary Artery Disease, Hx Heart Attack Pulmonary Medical History: Reports: Hx Pneumonia Denies: Hx Asthma, Hx Bronchitis, Hx COPD, Hx Tuberculosis Neurological Medical History: Reports: Hx Cerebrovascular Accident. 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 RESPIRATORY: -cough, +SOB GASTROINTESTINAL: -abdominal pain, -nausea, -vomiting, -diarrhea NEUROLOGICAL: -altered mental status or loss of consciousness, -headache, - neurologic symptoms ALL OTHER SYSTEMS REVIEWED AND NEGATIVE. -: Yes ROS unobtainable due to patient's medical condition Physical Exam - Vital signs Vitals: Pulse Resp BP Pulse Ox 81 20 165/71 H 100 12/14/17 02:37 12/14/17 02:37 12/14/17 02:37 12/14/17 02:37 - Notes Notes: PHYSICAL EXAMINATION: GENERAL: Elderly-appearing. No acute distress. HEAD: Atraumatic, normocephalic. EYES: Pupils equal round and reactive to light, extraocular movements intact, sclera anicteric, conjunctiva are normal. ENT: nares patent, oropharynx clear without exudates. Moist mucous membranes. NECK: Normal range of motion, supple without lymphadenopathy LUNGS: Rhonchi and rales in B/L lung acosta. HEART: Regular rate and rhythm without murmurs ABDOMEN: Soft, nontender, normoactive bowel sounds. No guarding, no rebound. No masses appreciated. EXTREMITIES: Normal range of motion, 3+ pitting edema up to knees in B/L legs. No cyanosis. NEUROLOGICAL: Moving all 4 extremities. AAOx3. SKIN: Warm, Dry, normal turgor, no rashes or lesions noted. Course - Re-evaluation Re-evalutation: Pt with hypoxia down to the low 80s on room air. She does not wear oxygen at home. She does not appear to be in any respiratory distress. Suspect a component of her pulmonary hypertension and pulmonary edema. Provided her with IV Lasix. She is afebrile and does not have a leukocytosis. Do not suspect multifocal pneumonia at this time. Spoke to Dr. Parada and he has accepted patient to IMCU. - Vital Signs Vital signs: Temp Pulse Resp BP Pulse Ox 97.6 F 80 18 132/61 H 98 12/14/17 04:10 12/14/17 04:10 12/14/17 06:00 12/14/17 06:01 12/14/17 06:01 - Laboratory Result Diagrams: 12/14/17 02:43 12/14/17 02:43 Laboratory results interpreted by me: 12/14/17 12/14/17 12/14/17 02:43 02:43 02:43 Hgb 11.7 L RDW 16.8 H Plt Count 633 H Seg Neutrophils % 80.3 H Lymphocytes % 11.0 L Creatinine 0.44 L Glucose 187 H Magnesium Alkaline Phosphatase 182 H NT-Pro-B Natriuret Pep 483 H Total Protein 6.1 L TSH Urine Protein Urine Glucose (UA) Urine Ketones 12/14/17 12/14/17 12/14/17 02:43 02:43 03:25 Hgb RDW Plt Count Seg Neutrophils % Lymphocytes % Creatinine Glucose Magnesium 1.5 L Alkaline Phosphatase NT-Pro-B Natriuret Pep Total Protein TSH 28.50 H Urine Protein 100 H Urine Glucose (UA) 50 H Urine Ketones TRACE H - Diagnostic Test Radiology reviewed: Image reviewed, Reports reviewed Radiology results interpreted by me: CXR (Prelim read by ED MD): Pulmonary edema Discharge - Discharge Clinical Impression: Hypoxia Condition: Stable Disposition: ADMITTED INPATIENT Admitting Provider: Hospitalist - [facility] Unit Admitted: [facility]
[2017-12-14 03:01] LABS: ABSOLUTE EOSINOPHILS # (AUTO) 0.2 10^3/uL (0.0-0.6); ABSOLUTE LYMPHOCYTES (AUTO) 1.1 10^3/uL (0.5-4.7); ABSOLUTE MONOCYTES (AUTO) 0.7 10^3/uL (0.1-1.4); BASOPHILS % (AUTO) 0.3 % (0-2); EOSINOPHILS % (AUTO) 1.8 % (0-6); HEMATOCRIT 36.4 % (36.0-47.0); HEMOGLOBIN 11.7 g/dL (12.0-15.5); MEAN CORPUSCULAR HEMOGLOBIN 28.2 pg (27.0-33.4); MEAN CORPUSCULAR HGB CONC 32.2 g/dL (32.0-36.0); MEAN CORPUSCULAR VOLUME 88 fl (80-97); MONOCYTES % (AUTO) 6.6 % (3-13); PLATELET COUNT 633 10^3/uL (150-450); RED BLOOD COUNT 4.16 10^6/uL (3.72-5.28); RED CELL DISTRIBUTION WIDTH 16.8 % (11.5-14.0); SEGMENTED NEUTROPHILS % (AUTO) 80.3 % (42-78); TOTAL CELLS COUNTED % (AUTO) 100 %; WHITE BLOOD COUNT 9.9 10^3/uL (4.0-10.5)
[2017-12-14 03:02] LABS: VENOUS BLOOD HCO3 27.5 mmol/L (20-32); VENOUS BLOOD PCO2 51.6 mmHg (35-63); VENOUS BLOOD PH 7.35 (7.30-7.42)
[2017-12-14 03:16] LABS: ALANINE AMINOTRANSFERASE 40 U/L (9-52); ALBUMIN 3.7 g/dL (3.5-5.0); ALKALINE PHOSPHATASE 182 U/L (38-126); ANION GAP 12 (5-19); ASPARTATE AMINO TRANSFERASE 34 U/L (14-36); BILIRUBIN,DIRECT 0.3 mg/dL (0.0-0.4); BILIRUBIN,TOTAL 0.4 mg/dL (0.2-1.3); BLOOD UREA NITROGEN 10 mg/dL (7-20); CALCIUM 9.1 mg/dL (8.4-10.2); CARBON DIOXIDE 29 mmol/L (22-30); CHLORIDE 99 mmol/L (98-107); GLUCOSE 187 mg/dL (75-110); INTERNATIONAL RATION (INR) 0.98; POTASSIUM 3.6 mmol/L (3.6-5.0); PROTHROMBIN TIME 13.5 SEC (11.4-15.4); TOTAL PROTEIN 6.1 g/dL (6.3-8.2)
[2017-12-14 03:27] LABS: TROPONIN I 0.012 ng/mL
[2017-12-14 03:41] LABS: APPEARANCE,URINE CLEAR; BILIRUBIN,URINE NEGATIVE (NEGATIVE); COLOR,URINE STRAW; GLUCOSE, URINE 50 mg/dL (NEGATIVE); KETONES,URINE TRACE mg/dL (NEGATIVE); LEUKOCYTE ESTERASE,URINE NEGATIVE (NEGATIVE); NITRITE,URINE NEGATIVE (NEGATIVE); PROTEIN,URINE 100 mg/dL (NEGATIVE); URINE SPECIFIC GRAVITY 1.009; UROBILINOGEN,URINE NEGATIVE mg/dL (<2.0)
[2017-12-14] MEDS ORDERED: FUROSEMIDE INJ/PF 40 MG/4 ML SDV IV ONE (05:01)
[2017-12-14] MEDS ORDERED: HYDRALAZINE HCL INJ/PF 20 MG/1 ML SDV IV PRN (05:25)
[2017-12-14] MEDS ORDERED: HYDRALAZINE HCL 10 MG TABLET PO ONE (05:25)
[2017-12-14] MEDS ORDERED: DEXTROSE 40% GEL 15 GM TUBE PO PRN ×2 (05:27)
[2017-12-14] MEDS ORDERED: IPRATROPIUM/ALBUTEROL 0.5-2.5 MG/3 ML AMPUL NEB PRN (05:27)
[2017-12-14] MEDS ORDERED: GLUCAGON,HUMAN RECOMB 1 MG INJ IM PRN (05:27)
[2017-12-14] MEDS ORDERED: ACETAMINOPHEN 325 MG TABLET PO PRN (05:27)
[2017-12-14] MEDS ORDERED: MAG HYDROX/AL HYDROX/SIMETH SUSP 30 ML UDCUP PO PRN (05:27)
[2017-12-14] MEDS ORDERED: DEXTROSE 50%-WATER 25 GM/50 ML DISP.SYRIN IV PRN ×2 (05:27)
--- NOTE | 2017-12-14 05:49 | PDOC H&P ---
History of Present Illness Admission Date/PCP: 12/14/17 05:13 CORAZON CARRION PA-C Patient complains of: Shortness of breath History of Present Illness: SANDY DANG is a 87 year old female with a past medical history of dementia, diastolic heart failure, hypertension, generalized debility and remote breast cancer. She presents with 8 hours of uncontrolled blood pressure and shortness of breath with a nonproductive cough. Her is at bedside and able to verify history as the patient herself is unable to provide meaningful history secondary to dementia. He denies her complaining of pain, recent change in medications or diet. In the emergency room she is found to have a systolic blood pressure in the 180s and severely tachypneic and hypoxic off supplemental oxygen. She receives IV Lasix and referred to the hospitalist for admission. 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 Psychiatric Medical History: Reports: Dementia Hematology: Denies: Anemia Past Surgical History Past Surgical History: Reports: Appendectomy, Cholecystectomy, Mastectomy - right Social History Information [facility] Lives with: Spouse/Significant other Smoking Status: Unknown if Ever Smoked Frequency of Alcohol Use: None Hx Recreational Drug Use: No Drugs: None Hx Prescription Drug Abuse: No - Advance Directive Resuscitation Status: Full Code Family History Family History: CAD, Hypertension Parental Family History Reviewed: Yes Children Family History Reviewed: Yes Sibling(s) Family History Reviewed.: Yes Medication/Allergy Home Medications: Amlodipine Besylate [Norvasc 10 mg Tablet] 10 mg PO DAILY 10/08/17 Calcium Carbonate/Vitamin D3 [Oyster Shell 500-Vit D3 200 Tb] 1 tab PO DAILY Cholestyramine/Aspartame [Prevalite Packet] 4 gm PO DAILY 10/08/17 Donepezil HCl [Aricept] 10 mg PO QHS 10/08/17 Glimepiride [Amaryl 1 mg Tablet] 1 mg PO BID 10/08/17 Levothyroxine Sodium [Synthroid] 137 mcg PO DAILY 10/08/17 Losartan Potassium [Cozaar 100 mg Tablet] 100 mg PO DAILY 10/08/17 Metformin HCl [Glucophage 500 mg Tablet] 500 mg PO BIDBS 10/08/17 Omeprazole 20 mg PO DAILY 10/08/17 Potassium Chloride [Klor-Con Sprinkle] 10 meq PO DAILY 10/08/17 Anastrozole [Arimidex 1 mg Tablet] 1 mg PO DAILY tablet 10/16/17 Atorvastatin Calcium [Lipitor 20 mg Tablet] 20 mg PO QHS tablet 10/16/17 Cefuroxime Axetil [Ceftin 500 mg Tablet] 500 mg PO BID #12 tablet 10/16/17 Donepezil HCl [Aricept 5 mg Tablet] 10 mg PO QHS tablet 10/16/17 Eplerenone [Inspra 25 mg Tablet] 50 mg PO QAM tablet 10/16/17 Furosemide 20 mg PO DAILY #30 tablet 10/16/17 Allergies/Adverse Reactions: diazepam [From Valium] Allergy (Verified 05/14/17 09:58) Review of Systems ROS unobtainable: Due to mental status Physical Exam Vital Signs: Temp Pulse Resp BP Pulse Ox 97.6 F 80 20 173/70 H 99 12/14/17 04:10 12/14/17 04:10 12/14/17 04:10 12/14/17 04:10 12/14/17 04:10 General appearance: PRESENT: cooperative, disheveled, severe distress. ABSENT: hard of hearing Head exam: PRESENT: atraumatic, normocephalic Eye exam: PRESENT: conjunctiva pink, EOMI, PERRLA. ABSENT: scleral icterus Ear exam: PRESENT: normal external ear exam Mouth exam: PRESENT: moist, tongue midline Neck exam: PRESENT: JVD. ABSENT: meningismus, tenderness, thyromegaly, tracheal deviation Respiratory exam: PRESENT: accessory muscle use, crackles, prolonged expiratory phas, retraction, symmetrical, tachypnea. ABSENT: rhonchi, stridor, wheezes Cardiovascular exam: PRESENT: gallop, RRR. ABSENT: diastolic murmur, rubs, systolic murmur Pulses: PRESENT: normal dorsalis pedis pul Vascular exam: PRESENT: normal capillary refill GI/Abdominal exam: PRESENT: normal bowel sounds, soft Rectal exam: PRESENT: deferred Extremities exam: PRESENT: full ROM, +1 edema. ABSENT: calf tenderness, clubbing, pedal edema, tenderness Neurological exam: PRESENT: alert, awake, oriented to person, CN II-XII grossly intact. ABSENT: motor sensory deficit Psychiatric exam: PRESENT: appropriate affect, normal mood. ABSENT: homicidal ideation, suicidal ideation Skin exam: PRESENT: dry, intact, warm. ABSENT: cyanosis, rash Assessment & Plan - Diagnosis (1) Hypoxia Is this a current diagnosis for this admission?: Yes Plan: Secondary to exacerbation of diastolic heart failure.. Optimize blood pressure control, loop diuretic, supplemental oxygen as needed BiPAP (2) Acute encephalopathy Is this a current diagnosis for this admission?: Yes Plan: Secondary to #1, supplemental oxygen and supportive care (3) Acute on chronic diastolic CHF (congestive heart failure) Is this a current diagnosis for this admission?: Yes Plan: Secondary to uncontrolled blood pressure. Optimize outpatient regiment, as needed IV hydralazine and was diuresis. Follow-up cardiac enzymes and TSH (4) Dementia Qualifiers: Is this a current diagnosis for this admission?: Yes Plan: Supportive care - Time Time Spent: 30 to 50 Minutes - Inpatient Certification Medical Necessity: Need Close Monitoring Due to Risk of Patient Decompensation
[2017-12-14 05:57] LABS: PHOSPHORUS 3.5 mg/dL (2.5-4.5)
--- NOTE | 2017-12-14 06:18 | EKG REPORT ---
SEVERITY:- ABNORMAL ECG - SINUS RHYTHM MULTIPLE ATRIAL PREMATURE COMPLEXES PROBABLE LEFT ATRIAL ABNORMALITY INCOMPLETE RBBB AND LAFB LEFT VENTRICULAR HYPERTROPHY : Confirmed by: Regino Aguayo MD 14-Dec-2017 06:17:24
[2017-12-14] MEDS: HEPARIN SOD (PORCINE) 5,000 UNIT/ML 1 ML SYRINGE SUBCUT SCH ×3 (06:22→22:37)
[2017-12-14] MEDS: HYDRALAZINE HCL 50 MG TABLET PO SCH ×3 (06:23→17:34)
[2017-12-14] MEDS: EPLERENONE 25 MG TABLET PO SCH (08:12)
[2017-12-14] MEDS: IPRATROPIUM/ALBUTEROL 0.5-2.5 MG/3 ML AMPUL NEB SCH ×2 (08:13→19:46)
--- NOTE | 2017-12-14 09:06 | RADIOLOGY REPORT (SQ) ---
EXAM DESCRIPTION: XR CHEST 1 VIEW COMPLETED DATE/TME: 12/14/2017 02:37 CLINICAL HISTORY: 87 years Female, hypoxia COMPARISON: 5.5.18 NUMBER OF VIEWS/TECHNIQUE: 1/AP FINDINGS: Moderate mixed interstitial and airspace opacity, moderate right lung volume, moderately enlarged cardiac silhouette, atherosclerosis. Right lateral hemithoracic clips. Intact bony thorax. IMPRESSION: Mild/moderate CHF pattern. Differential diagnosis includes multifocal pneumonia.
[2017-12-14 11:49] LABS: CREATINE KINASE MB 1.95 ng/mL (<4.55); TROPONIN I 0.018 ng/mL
[2017-12-14] MEDS: AMLODIPINE BESYLATE 10 MG TABLET PO SCH (12:03)
[2017-12-14] MEDS: DOCUSATE SODIUM 100 MG CAPSULE PO SCH ×2 (12:04→17:34)
[2017-12-14] MEDS: LOSARTAN POTASSIUM 50 MG TABLET PO SCH (12:05)
--- NOTE | 2017-12-14 13:44 | Physician Advisory Note ---
Physician Advisor ProgressNote .: Pursuant to the plan for Ivanna Gutierrez, I have reviewed the medical record for this patient. Physician Advisor Statement: Very nice documentation of "Ac on chr diast CHF" w/ supporting findings of BLE edema, crackles, CXR showing cardiomegaly ("enlarged cardiac silhouette") w/" CHF pattern". Please consider documenting, if you agree: 1. "Acute hypoxemic respiratory failure, evidenced by " (H&P notes hypoxemia off O2, accessory muscle use/retractions. ED note states O2 sats low 80s on RA, pt doesn't need O2 at home.) 2. "mild pulmonary hypertension" & "mild-mod mitral regurg" (per ECHO 10/13/17) 3. Supportive findings for dx of "acute ___ type encephalopathy" (explicitly stating what has been acutely different about her mental status compared to her baseline level of dementia) - or whether this dx is ruled out. 4. Medical necessity (see below) Status: Medicare pt, has stayed no midnights yet in hospital, has Ac on chr diast CHF (=Obs to start), possible acute encephalopathy (= Obs to start), & Acute Resp Failure requiring low amounts of O2. Given 1 dose IV LAsix in ED, but the only diuretic ordered by attending so far is pt's esplerenone 50mg qam ( which he usually takes bid); there is as yet no order for further IV Lasix or pt 's usual Lasix 20mg po qday. - Should be Obs status 'til she shows she doesn't improve quickly enough for safe d/c home 12/14 PM or 12/15, unless attending can document clear clinical reasons he/she definitely expects pt to require 2 MNs of hospital care & monitoring (through ). - IF attending can document, today or tomorrow, full expectation of pt needing continued hospital care & monitoring 'til at least 12/16 (clinical reasons/ concerns), THEN pt will be appropriate for Inpatient status. Thanks! CK
--- NOTE | 2017-12-14 14:46 | Progress Note ---
Provider Note Provider Note: I seen patient while she is resting in bed comfortably she is not in pain or distress but admitted this morning for hypertensive urgency and diastolic congestive heart failure. Results mentions that patient hypoxia her ABG is normal and for her congestive heart failure there is no lab work for BNP. Her blood pressure is normalized at. I will assume primary attending role.
[2017-12-14 17:33] LABS: ARTERIAL BLOOD BASE EXCESS 9.7 mmol/L; ARTERIAL BLOOD H2CO3 1.41 mmol/L (1.05-1.35); ARTERIAL BLOOD HCO3 34.4 mmol/L (20-26); ARTERIAL BLOOD O2 SATURATION 94.7 % (94-98); ARTERIAL BLOOD PH 7.48 (7.35-7.45); ARTERIAL BLOOD PO2 68.6 mmHg (80-100); ARTERIAL BLOOD TOTAL CO2 35.8 mmol/L (21-25)
[2017-12-14 17:35] LABS: ARTERIAL BLOOD FIO2 28%
[2017-12-14 18:15] LABS: CREATINE KINASE MB 2.13 ng/mL (<4.55); TROPONIN I 0.023 ng/mL
[2017-12-14 21:39] LABS: CREATINE KINASE MB 2.03 ng/mL (<4.55); TROPONIN I 0.022 ng/mL
[2017-12-14] MEDS: ATORVASTATIN CALCIUM 20 MG TABLET PO SCH (22:37)
[2017-12-15] MEDS: HYDRALAZINE HCL 50 MG TABLET PO SCH ×4 (00:19→17:15)
[2017-12-15] MEDS: HEPARIN SOD (PORCINE) 5,000 UNIT/ML 1 ML SYRINGE SUBCUT SCH ×3 (06:02→22:00)
[2017-12-15 07:39] LABS: ABSOLUTE BASOPHILS # (AUTO) 0.1 10^3/uL (0.0-0.2); ABSOLUTE EOSINOPHILS # (AUTO) 0.2 10^3/uL (0.0-0.6); ABSOLUTE LYMPHOCYTES (AUTO) 1.5 10^3/uL (0.5-4.7); ABSOLUTE NEUT (AUTO) 7.1 10^3/uL (1.7-8.2); BASOPHILS % (AUTO) 0.8 % (0-2); EOSINOPHILS % (AUTO) 2.2 % (0-6); HEMOGLOBIN 12.2 g/dL (12.0-15.5); LYMPHOCYTES % (AUTO) 15.3 % (13-45); MEAN CORPUSCULAR HEMOGLOBIN 28.8 pg (27.0-33.4); MEAN CORPUSCULAR HGB CONC 32.9 g/dL (32.0-36.0); MEAN CORPUSCULAR VOLUME 87 fl (80-97); MONOCYTES % (AUTO) 10.5 % (3-13); PLATELET COUNT 648 10^3/uL (150-450); RED BLOOD COUNT 4.23 10^6/uL (3.72-5.28); RED CELL DISTRIBUTION WIDTH 16.9 % (11.5-14.0); SEGMENTED NEUTROPHILS % (AUTO) 71.2 % (42-78); TOTAL CELLS COUNTED % (AUTO) 100 %; WHITE BLOOD COUNT 9.9 10^3/uL (4.0-10.5)
[2017-12-15 07:52] LABS: ANION GAP 11 (5-19); BLOOD UREA NITROGEN 10 mg/dL (7-20); CALCIUM 8.6 mg/dL (8.4-10.2); CARBON DIOXIDE 36 mmol/L (22-30); CHLORIDE 93 mmol/L (98-107); GLUCOSE 116 mg/dL (75-110); POTASSIUM 4.1 mmol/L (3.6-5.0)
[2017-12-15] MEDS: EPLERENONE 25 MG TABLET PO SCH (08:46)
[2017-12-15] MEDS: IPRATROPIUM/ALBUTEROL 0.5-2.5 MG/3 ML AMPUL NEB SCH ×2 (09:26→20:28)
[2017-12-15] MEDS: AMLODIPINE BESYLATE 10 MG TABLET PO SCH (10:04)
[2017-12-15] MEDS: DOCUSATE SODIUM 100 MG CAPSULE PO SCH ×2 (10:04→17:15)
[2017-12-15] MEDS: LOSARTAN POTASSIUM 50 MG TABLET PO SCH (10:05)
[2017-12-15] MEDS: INSULIN LISPRO 100 UNIT/ML 3 ML VIAL SUBCUT PRN (18:11)
[2017-12-15] MEDS: ATORVASTATIN CALCIUM 20 MG TABLET PO SCH (21:10)
[2017-12-16] MEDS: HYDRALAZINE HCL 50 MG TABLET PO SCH ×4 (00:48→17:04)
[2017-12-16] MEDS: HEPARIN SOD (PORCINE) 5,000 UNIT/ML 1 ML SYRINGE SUBCUT SCH ×3 (05:12→21:22)
[2017-12-16] MEDS: IPRATROPIUM/ALBUTEROL 0.5-2.5 MG/3 ML AMPUL NEB SCH ×2 (07:35→20:09)
[2017-12-16] MEDS: EPLERENONE 25 MG TABLET PO SCH (08:34)
[2017-12-16] MEDS: LOSARTAN POTASSIUM 50 MG TABLET PO SCH (09:28)
[2017-12-16] MEDS: AMLODIPINE BESYLATE 10 MG TABLET PO SCH (09:28)
[2017-12-16] MEDS: DOCUSATE SODIUM 100 MG CAPSULE PO SCH ×2 (10:18→17:04)
--- NOTE | 2017-12-16 13:31 | PDOC PROGRESS REPORT ---
Subjective Progress Note for:: 12/15/17 Subjective:: I seen patient resting in bed. She has been doing relatively better but still she has some dyspnea. No nausea vomiting, diarrhea, fever, chest pain or abdominal pain. Hopefully she is potential discharge for tomorrow. Reason For Visit: HTN URGENCY DIATOLIC HF, SOB DIABETES, DEMENTIA Physical Exam Vital Signs: Temp Pulse Resp BP Pulse Ox 99.0 F 97 16 115/59 L 94 12/15/17 12:00 12/15/17 12:00 12/15/17 12:00 12/15/17 12:00 12/15/17 12:00 Intake & Output 12/14/17 12/15/17 12/16/17 06:59 06:59 06:59 Intake Total 1305 Balance 1305 Weight 70.2 kg General appearance: PRESENT: mild distress Head exam: PRESENT: atraumatic Mouth exam: PRESENT: moist Neck exam: ABSENT: carotid bruit, JVD, lymphadenopathy, thyromegaly Respiratory exam: PRESENT: clear to auscultation stella. ABSENT: rales, rhonchi, wheezes Cardiovascular exam: PRESENT: RRR. ABSENT: diastolic murmur, rubs, systolic murmur Neurological exam: PRESENT: alert, awake Results Laboratory Results: 12/15/17 05:25 12/15/17 05:25 12/14/17 12/15/17 12/15/17 16:55 05:25 05:25 WBC 9.9 RBC 4.23 Hgb 12.2 Hct 37.0 MCV 87 MCH 28.8 MCHC 32.9 RDW 16.9 H Plt Count 648 H Seg Neutrophils % 71.2 Lymphocytes % 15.3 Monocytes % 10.5 Eosinophils % 2.2 Basophils % 0.8 Absolute Neutrophils 7.1 Absolute Lymphocytes 1.5 Absolute Monocytes 1.0 Absolute Eosinophils 0.2 Absolute Basophils 0.1 Carbonic Acid 1.41 H HCO3/H2CO3 Ratio 24:1 ABG pH 7.48 H ABG pCO2 47.0 H ABG pO2 68.6 L ABG HCO3 34.4 H ABG O2 Saturation 94.7 ABG Base Excess 9.7 FiO2 28% Sodium Potassium Chloride Carbon Dioxide Anion Gap BUN Creatinine Est GFR ( Amer) Est GFR (Non-Af Amer) Glucose Calcium Free T4 0.70 L 12/15/17 05:25 WBC RBC Hgb Hct MCV MCH MCHC RDW Plt Count Seg Neutrophils % Lymphocytes % Monocytes % Eosinophils % Basophils % Absolute Neutrophils Absolute Lymphocytes Absolute Monocytes Absolute Eosinophils Absolute Basophils Carbonic Acid HCO3/H2CO3 Ratio ABG pH ABG pCO2 ABG pO2 ABG HCO3 ABG O2 Saturation ABG Base Excess FiO2 Sodium 140.0 Potassium 4.1 Chloride 93 L Carbon Dioxide 36 H Anion Gap 11 BUN 10 Creatinine 0.45 L Est GFR ( Amer) > 60 Est GFR (Non-Af Amer) > 60 Glucose 116 H Calcium 8.6 Free T4 12/14/17 12/14/17 12/14/17 11:06 11:06 17:19 Creatine Kinase 35 61 CK-MB (CK-2) 1.95 Troponin I 0.018 NT-Pro-B Natriuret Pep 12/14/17 12/14/17 12/14/17 17:19 20:47 20:47 Creatine Kinase 60 CK-MB (CK-2) 2.13 2.03 Troponin I 0.023 0.022 NT-Pro-B Natriuret Pep 12/15/17 05:25 Creatine Kinase CK-MB (CK-2) Troponin I NT-Pro-B Natriuret Pep 756 H Impressions: Chest X-Ray 12/14/17 02:37 IMPRESSION: Mild/moderate CHF pattern. Differential diagnosis includes multifocal pneumonia. Assessment & Plan - Diagnosis (1) Acute respiratory failure with hypoxia Is this a current diagnosis for this admission?: Yes Plan: Patient has been on supplemental oxygen. (2) Altered mental status Qualifiers: Altered mental status type: disorientation Qualified Code(s): R41.0 - Disorientation, unspecified Is this a current diagnosis for this admission?: Yes Plan: Probably due to metabolic encephalopathy secondary to hypoxia. (3) Acute on chronic diastolic congestive heart failure, NYHA class 2 Is this a current diagnosis for this admission?: Yes Plan: Patient has been on Lasix and cardioprotective medications (4) Hypertensive urgency Is this a current diagnosis for this admission?: Yes Plan: Continue current regimen. (5) Type 2 diabetes mellitus Is this a current diagnosis for this admission?: Yes Plan: Continue sliding scale (6) Dementia Qualifiers: Dementia type: unspecified type Is this a current diagnosis for this admission?: Yes Plan: Stable
--- NOTE | 2017-12-16 13:35 | PDOC PROGRESS REPORT ---
Subjective Progress Note for:: 12/16/17 Subjective:: Patient is somewhat sleepy. No significant changes overnight except this morning patient become hypoxic after they try to remove her oxygen and her oxygen saturation dropped to 87%. Since patient is not wearing oxygen at home, I stop her oxygen and observe her overnight. Reason For Visit: HTN URGENCY DIATOLIC HF, SOB DIABETES, DEMENTIA Physical Exam Vital Signs: Temp Pulse Resp BP Pulse Ox 98.7 F 80 20 104/40 L 98 12/16/17 08:06 12/16/17 08:06 12/16/17 08:06 12/16/17 08:06 12/16/17 08:06 Intake & Output 12/15/17 12/16/17 12/17/17 06:59 06:59 06:59 Intake Total 1305 Balance 1305 Weight 70.2 kg 67.6 kg General appearance: PRESENT: no acute distress Head exam: PRESENT: atraumatic Eye exam: PRESENT: conjunctiva pink Neck exam: ABSENT: carotid bruit, JVD, lymphadenopathy, thyromegaly Respiratory exam: PRESENT: clear to auscultation stella. ABSENT: rales, rhonchi, wheezes Cardiovascular exam: PRESENT: RRR. ABSENT: diastolic murmur, rubs, systolic murmur GI/Abdominal exam: PRESENT: normal bowel sounds, soft. ABSENT: distended, guarding, mass, organolmegaly, rebound, tenderness Neurological exam: PRESENT: alert, awake Psychiatric exam: PRESENT: normal mood Results Laboratory Results: 12/15/17 05:25 12/15/17 05:25 12/14/17 12/14/17 12/14/17 11:06 11:06 17:19 Creatine Kinase 35 61 CK-MB (CK-2) 1.95 Troponin I 0.018 NT-Pro-B Natriuret Pep 12/14/17 12/14/17 12/14/17 17:19 20:47 20:47 Creatine Kinase 60 CK-MB (CK-2) 2.13 2.03 Troponin I 0.023 0.022 NT-Pro-B Natriuret Pep 12/15/17 05:25 Creatine Kinase CK-MB (CK-2) Troponin I NT-Pro-B Natriuret Pep 756 H Impressions: Chest X-Ray 12/14/17 02:37 IMPRESSION: Mild/moderate CHF pattern. Differential diagnosis includes multifocal pneumonia. Assessment & Plan - Diagnosis (1) Acute respiratory failure with hypoxia Is this a current diagnosis for this admission?: Yes Plan: Her O2 saturation dropped to 87% when her oxygen is removed. We will keep her without oxygen and observe her overnight if she remains stable she is potential discharge for tomorrow. (2) Altered mental status Qualifiers: Altered mental status type: disorientation Qualified Code(s): R41.0 - Disorientation, unspecified Is this a current diagnosis for this admission?: Yes Plan: Currently patient is at her baseline (3) Acute on chronic diastolic congestive heart failure, NYHA class 2 Is this a current diagnosis for this admission?: Yes Plan: Continue current regimen (4) Hypertensive urgency Is this a current diagnosis for this admission?: Yes Plan: Improved (5) Type 2 diabetes mellitus Is this a current diagnosis for this admission?: Yes Plan: Continue sliding scale (6) Dementia Qualifiers: Dementia type: unspecified type Is this a current diagnosis for this admission?: Yes Plan: Stable
[2017-12-16] MEDS: INSULIN LISPRO 100 UNIT/ML 3 ML VIAL SUBCUT PRN (17:04)
[2017-12-16] MEDS: ATORVASTATIN CALCIUM 20 MG TABLET PO SCH (21:22)
[2017-12-17] MEDS: HYDRALAZINE HCL 50 MG TABLET PO SCH ×2 (00:20→06:28)
[2017-12-17] MEDS: HEPARIN SOD (PORCINE) 5,000 UNIT/ML 1 ML SYRINGE SUBCUT SCH (06:28)
[2017-12-17] MEDS: EPLERENONE 25 MG TABLET PO SCH (08:14)
[2017-12-17] MEDS: IPRATROPIUM/ALBUTEROL 0.5-2.5 MG/3 ML AMPUL NEB SCH (08:15)
--- NOTE | 2017-12-17 08:42 | PDOC DISCHARGE SUMMARY ---
General - Admit/Disc Date/PCP Admission Date/Primary Care Provider: 12/14/17 05:13 CORAZON CARRION PA-C Discharge Date: 12/17/17 - Discharge Diagnosis (1) Acute respiratory failure with hypoxia Is this a current diagnosis for this admission?: Yes (2) Altered mental status Is this a current diagnosis for this admission?: Yes (3) Acute on chronic diastolic congestive heart failure, NYHA class 2 Is this a current diagnosis for this admission?: Yes (4) Hypertensive urgency Is this a current diagnosis for this admission?: Yes (5) Type 2 diabetes mellitus Is this a current diagnosis for this admission?: Yes (6) Dementia Is this a current diagnosis for this admission?: Yes - Additional Information Resuscitation Status: Full Code Home Medications: Amlodipine Besylate [Norvasc 10 mg Tablet] 10 mg PO DAILY 12/14/17 Anastrozole [Arimidex 1 mg Tablet] 1 mg PO DAILY 12/14/17 Ascorbic Acid [Vitamin C 500 mg Tablet] 500 mg PO DAILY 12/14/17 Aspirin [Aspirin 325 mg Tablet] 325 mg PO DAILY 12/14/17 Atorvastatin Calcium [Lipitor 20 mg Tablet] 20 mg PO DAILY 12/14/17 Calcium Carbonate/Vitamin D3 [Calcium 500 + Vit D Caplet] 1 tab PO DAILY Cholestyramine (with Sugar) [Cholestyramine Packet] 4 gm PO MEALS 12/14/17 Donepezil HCl [Aricept] 10 mg PO QPM 12/14/17 Eplerenone [Inspra] 50 mg PO Q12 12/14/17 Ergocalciferol (Vitamin D2) [Drisdol 50,000 unit (1.25MG) Capsule] 50,000 unit PO [id number] 12/14/17 Escitalopram Oxalate [Lexapro] 20 mg PO DAILY 12/14/17 Ferrous Sulfate [Feosol 325 mg Tablet] 325 mg PO DAILY 12/14/17 Furosemide [Lasix 20 mg Tablet] 20 mg PO DAILY 12/14/17 Glimepiride 2 mg PO BID 12/14/17 Levothyroxine Sodium [Synthroid] 137 mcg PO Q6AM 12/14/17 Losartan Potassium [Cozaar 100 mg Tablet] 100 mg PO DAILY 12/14/17 Metformin HCl [Glucophage 500 mg Tablet] 500 mg PO BIDBS 12/14/17 Multivitamin [Tab-A-Amrik (Multiple Vitamin) Tablet] 1 tab PO DAILY 12/14/17 Omeprazole 20 mg PO DAILY 12/14/17 Potassium Chloride [Klor-Con 10 Meq Capsule ER] 10 meq PO DAILY 12/14/17 Ropinirole HCl [Requip] 2 mg PO Q12 12/14/17 History of Present Illness History of Present Illness: SANDY DANG is a 87 year old female with a past medical history of dementia, diastolic heart failure, hypertension, generalized debility and remote breast cancer. She presents with 8 hours of uncontrolled blood pressure and shortness of breath with a nonproductive cough. Her is at bedside and able to verify history as the patient herself is unable to provide meaningful history secondary to dementia. He denies her complaining of pain, recent change in medications or diet. In the emergency room she is found to have a systolic blood pressure in the 180s and severely tachypneic and hypoxic off supplemental oxygen. She receives IV Lasix and referred to the hospitalist for admission. Hospital Course Hospital Course: This is 87 years old female patient admitted with the impression of acute hypoxic respiratory failure and also hypertensive emergency. Patient has been managed with supplemental oxygen and bronchodilators. Yesterday she had an episode of hypoxia her O2 saturation desaturated to 87% when she is taken off her oxygen but today on the day of discharge her O2 saturation is 95% on room air. Her blood pressure also normalized. Patient is awake alert and responsive. Her vital signs are within normal limits and her labs are okay and patient is good to go home. I will continue all her home medications. Physical Exam Vital Signs: Temp Pulse Resp BP Pulse Ox 98.5 F 92 22 H 119/52 L 93 12/17/17 03:25 12/17/17 03:25 12/17/17 03:25 12/17/17 03:25 12/17/17 03:25 Intake & Output 12/16/17 12/17/17 12/18/17 06:59 06:59 06:59 Intake Total 758 Balance 758 Weight 67.6 kg 67.5 kg General appearance: PRESENT: no acute distress, well-developed, well-nourished Head exam: PRESENT: atraumatic Eye exam: PRESENT: conjunctiva pink Mouth exam: PRESENT: moist Respiratory exam: PRESENT: clear to auscultation stella. ABSENT: rales, rhonchi, wheezes Cardiovascular exam: PRESENT: RRR. ABSENT: diastolic murmur, rubs, systolic murmur GI/Abdominal exam: PRESENT: normal bowel sounds, soft. ABSENT: distended, guarding, mass, organolmegaly, rebound, tenderness Neurological exam: PRESENT: alert, awake Psychiatric exam: PRESENT: normal mood Results Laboratory Results: 12/15/17 05:25 12/15/17 05:25 12/14/17 12/14/17 12/14/17 11:06 11:06 17:19 Creatine Kinase 35 61 CK-MB (CK-2) 1.95 Troponin I 0.018 NT-Pro-B Natriuret Pep 12/14/17 12/14/17 12/14/17 17:19 20:47 20:47 Creatine Kinase 60 CK-MB (CK-2) 2.13 2.03 Troponin I 0.023 0.022 NT-Pro-B Natriuret Pep 12/15/17 05:25 Creatine Kinase CK-MB (CK-2) Troponin I NT-Pro-B Natriuret Pep 756 H Impressions: Chest X-Ray 12/14/17 02:37 IMPRESSION: Mild/moderate CHF pattern. Differential diagnosis includes multifocal pneumonia. Qualifiers - * PATIENT BEING DISCHARGED WITH ANY OF THE FOLLOWING DIAGNOSIS: Heart Failure VTE patient discharged on overlapping Therapy?: No Reason(s) for not prescribing Overlap Therapy:: Not indicated Stroke Pt being discharged on Anti-thrombolytic therapy?: No Reason(s) for not prescribing Anti-thrombolytic therapy:: Not indicated Stroke Pt being discharged on Anti-coagulation therapy?: No Reason(s) for not prescribing Anti-coagulation therapy:: Not indicated Stroke Pt being discharged on Statins?: No Reason(s) for not prescribing Statins therapy:: Not indicated W[place] Pt being discharged on Aspirin therapy?: No Reason(s) for not prescribing Aspirin therapy:: Not indicated W[place] Pt being discharged on Statins?: No Reason(s) for not prescribing Statin therapy:: Not indicated [place] Pt discharged ACEI/ARBS?: No Reason(s) for not prescribing ACEI/ARBS:: Not indicated HF Pt being discharged on ACEI for LVEF less than 40%?: No Reason(s) for not prescribing ACEI:: Not indicated HF Pt being discharged on ARBS for LVEF less than 40%?: No Reason(s) for not prescribing ARBS:: Not indicated HF Pt with Afib discharged with Warfarin?: No Reason(s) for not prescribing Warfarin:: Not indicated HF Pt discharged on evidence-based Beta Kofi:: Yes
[2017-12-17] MEDS: DOCUSATE SODIUM 100 MG CAPSULE PO SCH (09:59)
[2017-12-17] MEDS: LOSARTAN POTASSIUM 50 MG TABLET PO SCH (09:59)
[2017-12-17] MEDS: AMLODIPINE BESYLATE 10 MG TABLET PO SCH (09:59)
[2017-12-17 10:45] VITALS: BP 110/52
== END 2017-12-17 11:00 | disposition home or self-care (01) | DRG 291 ==
LOC: ER 02:28 → EH 05:13 → 4W 10:03 → 4S 12:30
PROVIDERS: ADMIT Internal Medicine; ATTEND Internal Medicine
DX: I11.0 Hypertensive heart disease with heart failure (principal); J96.01 Acute respiratory failure with hypoxia; G93.40 Encephalopathy, unspecified; I50.33 Acute on chronic diastolic (congestive) heart failure; F03.90 Unspecified dementia, unspecified severity, without behavioral disturbance, psychotic disturbance, mood disturbance, and anxiety; E11.9 Type 2 diabetes mellitus without complications; M19.90 Unspecified osteoarthritis, unspecified site; I16.0 Hypertensive urgency; Z85.3 Personal history of malignant neoplasm of breast; Z88.8 Allergy status to other drugs, medicaments and biological substances; Z86.73 Personal history of transient ischemic attack (TIA), and cerebral infarction without residual deficits; Z90.49 Acquired absence of other specified parts of digestive tract
CPT/HCPCS: 36415; 36600; 71045; 80048; 80053; 81001; 82550; 82553; 82803; 82962; 83036; 83605; 83735; 83880; 84100; 84439; 84443; 84484; 85025; 85610; 87040; 87086; 87088; 87186; 93005; 93010; 99285; J1644; J1815; J1940; J3490; J7620

== ENCOUNTER → 2018-01-05 | Outpatient (CLI) | payer MEDICARE ==
--- NOTE | 2018-01-05 13:39 | WOMENS IMAGING REPORT ---
EXAM DESCRIPTION: BONE DENSITY HIP/SPINE COMPLETED DATE/TIME: 01/05/2018 1:24 pm REASON FOR STUDY: OSTEOPOROSIS M81.0 AGE-RELATED OSTEOPOROSIS W/O CURRENT PATHOLOGICAL FRAC COMPARISON: June 2015 TECHNIQUE: Dual-Energy X-ray Absorptiometry (DEXA) of the AP Spine and Hip. LIMITATIONS: None. FINDINGS: LUMBAR SPINE: The bone mineral density (BMD) measured from L1-L4 in the AP projection correlates with a T-score of 1.2, which is normal as defined by the World Health Organization. 0.3% increase as compared to the p revious study HIP: The bone mineral density (BMD) measured in the left hip correlates with a T-score of -0.5, which is n ormal as defined by the World Health Organization. 4.0% increase as compared to the previous study. IMPRESSION: 1. LUMBAR SPINE: Normal 2. HIP: Normal COMMENT: The World Health Organization defines low BMD as follows: T-score: Normal: Greater than -1.0 Osteopenia: Between -1.0 and -2.5 Osteoporosis: Less than -2.5 without fractures Established osteoporosis: Less than -2.5 with fractures In general, you may wish to consider: Diagnosis Treatment Follow-up DEXA Normal BMD Prevention 2-3 years Osteopenia Prevention/Therapy 1-2 years Osteoporosis Therapy Yearly TECHNICAL DOCUMENTATION: JOB ID: [id number] [employer]- All Rights Reserved Reading location - IP/workstation name: [email or web address]
--- NOTE | 2018-01-05 13:56 | WOMENS IMAGING REPORT ---
EXAM DESCRIPTION: 3D SCREENING MAMMO BILAT COMPLETED DATE/TIME: 01/05/2018 1:24 pm REASON FOR STUDY: SCREENING MAMMO M81.0 AGE-RELATED OSTEOPOROSIS W/O CURRENT PATHOLOGICAL FRAC COMPARISON: July 2016 and March 20062015 TECHNIQUE: Standard craniocaudal and mediolateral oblique views of each breast recorded using digita l acquisition and breast tomosynthesis. LIMITATIONS: None. FINDINGS: Findings present which are benign by mammographic criteria. No suspicious masses, calcifi cations or architectural distortion. Pertinent benign findings: Postsurgical and postradiation changes are identified in the right breast Read with the assistance of CAD. .[facility] - R2 Cenova Version 1.3 .[facility] - R2 Cenova Version 1.3 .[facility] - R2 Cenova Version 2.4 .[facility] - R2 Cenova Version 2.4 .[facility] - R2 Funder Version 9.2 Benign mammographic findings may include one or more of the following: Smooth masses, popcorn/rim/co arse calcifications, asymmetries, post-procedure changes, and lesions with long-standing stability. IMPRESSION: BENIGN MAMMOGRAPHIC FINDINGS. BIRADS 2 BREAST DENSITY: b. There are scattered areas of fibroglandular density. BIRAD: 2 BENIGN FINDING(S) RECOMMENDATION: RECOMMENDATION: ROUTINE SCREENING COMMENT: The patient has been notified of the results by letter per MQSA requirements. Additional no tification policies are in place for contacting patient with suspicious or incomplete findings. Quality ID #225: The [employer] recommends an annual screening mammogram for women aged 40 years or over. This facility utilizes a reminder system to ensure that all patients receive reminder letters, and/or direct phone calls for appointments. This includes reminders for routine scr eening mammograms, diagnostic mammograms, or other Breast Imaging Interventions when appropriate. Th is patient will be placed in the appropriate reminder system. The [employer] (ACR) has developed recommendations for screening MRI of the breast s in certain patient populations, to be used in conjunction with mammography. Breast MRI surveillanc e may be appropriate for women with more than 20% lifetime risk of developing breast cancer as deter mined by genetic testing, significant family history of the disease, or history of mantle radiation f or Hodgkins Disease. ACR Practice Guidelines 2008. DBT Technology DBT is a type of tomographic mammography. With conventional mammography, overlapping breast tissue ma y make lesions difficult to detect, even with good compression. DBT uses an x-ray tube that rotates a round the breast, taking images at different angles. These images are then combined to create thin sl ices of the breast that the radiologist can view as a 3D reconstruction. The [employer] unit can perform full-field digital mammograms (2D imaging); or DBT (3D imaging); or both, in a combination mode that quickly performs both the mammogram and the tomosynthesis scan while the breast is still compressed. PQRS 6045F: Fluoroscopic imaging is not utilized for breast tomosynthesis. TECHNICAL DOCUMENTATION: FINDING NUMBER: (1) ASSESSMENT: (1) JOB ID: [id number] [employer]- All Rights Reserved Reading location - IP/workstation name: [email or web address]
== END ==
LOC: WI 12:55
PROVIDERS: ATTEND Internal Medicine Hematology & Oncology
DX: Z12.31 Encounter for screening mammogram for malignant neoplasm of breast (principal); M81.0 Age-related osteoporosis without current pathological fracture
CPT/HCPCS: 77063; 77067; 77080

== ENCOUNTER 2018-02-15 09:34 | Emergency (ER) | payer MEDICARE, OTHER ==
[2018-02-15 09:55] VITALS: BP 134/51
--- NOTE | 2018-02-15 10:36 | RADIOLOGY REPORT (SQ) ---
EXAM DESCRIPTION: HAND LEFT 3 VIEWS COMPLETED DATE/TIME: 02/15/2018 10:23 am REASON FOR STUDY: left hand injury fell over the weekend, continued pain and swelling COMPARISON: Left wrist films 05/14/2017, 02/15/2018 EXAM PARAMETERS: NUMBER OF VIEWS: Three views. TECHNIQUE: AP, lateral and oblique radiographic images acquired of the left hand. LIMITATIONS: None. FINDINGS: MINERALIZATION: Osteopenic BONES: Hairline nondisplaced fracture, base left 5th metacarpal extending into the CMC joint. Old comminuted distal left radius metaphysis fracture JOINTS: No effusions. SOFT TISSUES: Diffuse dorsal left hand soft tissue swelling. No radiopaque foreign body or soft tiss ue gas OTHER: No other significant finding. IMPRESSION: Old healed distal left radius fracture Acute hairline nondisplaced fracture, left 5th metacarpal base extending into the CMC joint TECHNICAL DOCUMENTATION: JOB ID: [id number] [employer]- All Rights Reserved Reading location - IP/workstation name: [email or web address]
--- NOTE | 2018-02-15 10:37 | RADIOLOGY REPORT (SQ) ---
EXAM DESCRIPTION: WRIST LEFT 3 VIEWS COMPLETED DATE/TIME: 02/15/2018 10:23 am REASON FOR STUDY: left wrist injury COMPARISON: 05/14/2017 NUMBER OF VIEWS: Three views. TECHNIQUE: AP, lateral, and oblique radiographic images acquired of the left wrist. LIMITATIONS: None. FINDINGS: MINERALIZATION: Osteopenic BONES: Acute hairline nondisplaced fracture, left 5th metacarpal base extending into the CMC joint. Old healed comminuted left distal radius metaphysis fracture SOFT TISSUES: Diffuse left wrist soft tissue swelling. No soft tissue gas or radiopaque foreign body OTHER: No other significant finding. IMPRESSION: Acute hairline nondisplaced fracture, left 5th metacarpal base extending into the CMC john int TECHNICAL DOCUMENTATION: JOB ID: [id number] [employer]- All Rights Reserved Reading location - IP/workstation name: [email or web address]
--- NOTE | 2018-02-15 10:41 | ER Document Report ---
ED General - General Chief Complaint: Hand Injury Stated Complaint: LEFT HAND SWELLING Time Seen by Provider: 02/15/18 10:06 Notes: Patient is a an 88 year old female that presents to the emergency department for chief complaint of left hand pain and swelling after a fall. The patient reports that she fell yesterday morning. She tried to catch herself with her hands when she fell. She denies any significant pain, but noticed more swelling in her hand today so they decided to come to the emergency department to have this evaluated. She denies any loss of consciousness, head injury, or neck injury. She denies any numbness, tingling, or weakness in any limb. 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 Past Medical History: CHF, CAD, HTN, HLD, hypothyroidism, dementia, TIA Past Surgical History: appendectomy, mastectomy, cholecystectomy Social History: denies tobacco, ETOH, or drug use. Family History: Reviewed and noncontributory for presenting illness Allergies: Reviewed, see documented allergy list. REVIEW OF SYSTEMS: Unless otherwise stated in this report the patient's positive and negative responses for review of systems for constitutional, eyes, ENT, cardiovascular, respiratory, gastrointestinal, neurological, genitourinary, musculoskeletal, and integumentary systems and related systems to the presenting problem are either as stated in the HPI or were not pertinent or were negative for the symptoms and/or complaints related to the presenting medical problem. PHYSICAL EXAMINATION: Vital signs reviewed, nursing noted reviewed. GENERAL: Elderly female, no acute distress, wearing chronic oxygen therapy HEAD: Atraumatic, normocephalic. EYES: Eyes appear normal, extraocular movements intact, sclera anicteric, conjunctiva are normal. ENT: nares patent, oropharynx clear without exudates. Moist mucous membranes. NECK: Normal range of motion, supple without lymphadenopathy LUNGS: Breath sounds clear, slightly diminished to auscultation bilaterally and equal. No wheezes rales or rhonchi. HEART: Regular rate and rhythm without murmurs ABDOMEN: Soft, nontender, normoactive bowel sounds. No rebound, guarding, or rigidity. No masses appreciated. EXTREMITIES: Left hand is ecchymotic and edematous, there is tenderness with palpation over the mid to lateral palm. Noted is a deformity to the left distal radius, however there is no tenderness or ecchymosis to this area. Sensation intact distally in all fingers, ROM of the fingers is intact. MMS +5/ 5 in all digits. The remainder of the patient's extremity exam is grossly unremarkable. Good ROM of all other limbs and joints without tenderness or pain with ROM. NEUROLOGICAL: No focal neurological deficits. Moves all extremities spontaneously Motor and sensory grossly intact on exam. PSYCH: Normal mood, normal affect. SKIN: Warm, Dry, normal turgor, no rashes or lesions noted on exposed skin, some areas of ecchymosis in varying degrees of healing on the arms. TRAVEL OUTSIDE OF THE [place] IN LAST 30 DAYS: No - Related Data Allergies/Adverse Reactions: diazepam [From Valium] Allergy (Verified 02/15/18 09:37) Past Medical History - Social History Smoking Status: Never Smoker Family History: CAD, None, Reviewed & Not Pertinent Patient has suicidal ideation: No Patient has homicidal ideation: No - Past Medical History Cardiac Medical History: Reports: Hx Congestive Heart Failure, Hx Hypercholesterolemia, Hx Hypertension Denies: Hx Coronary Artery Disease, Hx Heart Attack Pulmonary Medical History: Reports: Hx Pneumonia Denies: Hx Asthma, Hx Bronchitis, Hx COPD, Hx Tuberculosis Neurological Medical History: Reports: Hx Cerebrovascular Accident. 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 Denies: Hx Hysterectomy - Immunizations Hx Diphtheria, Pertussis, Tetanus Vaccination: No Hx Pneumococcal Vaccination: 06/14/12 Review of Systems - Review of Systems Notes: dictated. Physical Exam - Vital signs Vitals: Pulse Resp BP Pulse Ox 64 24 H 134/51 H 93 02/15/18 09:53 02/15/18 09:53 02/15/18 09:53 02/15/18 09:53 - Notes Notes: dictated Course - Re-evaluation Re-evalutation: Patient seen and examined. Left hand swelling and ecchymosis as noted above. Patient declined any need for pain medication during her entire ED course. Xray obtained of the left hand and wrist and demonstrated an acute fracture of the 5th metacarpal, non-displaced. Patient was placed in an ulnar gutter splint and sling, and given referral to orthopedic surgery. Patient was offered a prescription for pain medication, but declined at this time and would prefer to take tylenol if needed for pain. at bedside vocalized he will assist her in the home and is familiar with splint care from her prior fracture. Hand X-Ray 02/15/18 10:14 IMPRESSION: Old healed distal left radius fracture Acute hairline nondisplaced fracture, left 5th metacarpal base extending into the CMC joint Wrist X-Ray 02/15/18 10:14 IMPRESSION: Acute hairline nondisplaced fracture, left 5th metacarpal base extending into the CMC joint - Vital Signs Vital signs: Temp Pulse Resp BP Pulse Ox 98.7 F 64 24 H 134/51 H 93 02/15/18 10:29 02/15/18 09:53 02/15/18 09:53 02/15/18 09:53 02/15/18 09:53 - Diagnostic Test Radiology reviewed: Image reviewed, Reports reviewed Procedures - Additional Procedures Splinting Notes: 02/15/18 11:12 Left ulnar gutter splint placed, neurovascular intact after placing splint, patient placed in a sling as well. Tolerated well. Discharge - Discharge Clinical Impression: Fracture of fifth metacarpal bone of left hand Qualifiers: Encounter type: initial encounter Fracture type: closed Metacarpal location: unspecified portion of metacarpal Fracture alignment: nondisplaced Qualified Code(s): S62.307A - Unspecified fracture of fifth metacarpal bone, left hand, initial encounter for closed fracture Condition: Good Disposition: HOME, SELF-CARE Instructions: Fractured Fifth Metacarpal ([facility]) Additional Instructions: Please return to the emergency department if you have any worsening, or concern of your symptoms. Please return to the emergency department if you develop chest pain, difficulty breathing, severe abdominal pain, or ongoing vomiting. Please follow-up with your primary care physician in 2-3 days and any other recommended physicians. If prescribed, take all medications as directed. If you have any questions or concerns do not hesitate to return the emergency department for evaluation. Please keep your left arm elevated as much as possible, please follow-up with orthopedic surgery. Referrals: CORAZON CARRION PA-C [Primary Care Provider] - Follow up as needed AC GUNTER MD [ACTIVE STAFF] - Follow up as needed
== END 2018-02-15 11:25 | disposition home or self-care (01) ==
LOC: ER 09:34
PROC: 2W3DX1Z Immobilization of Left Lower Arm using Splint (ICD-10-PCS; principal; 2018-02-15)
DX: S62.307A Unspecified fracture of fifth metacarpal bone, left hand, initial encounter for closed fracture (principal); W18.30XA Fall on same level, unspecified, initial encounter
CPT/HCPCS: 99283

== ENCOUNTER 2018-03-01 01:48 | Inpatient (IN) | payer MEDICARE, OTHER ==
--- NOTE | 2018-03-01 02:21 | ER Document Report ---
ED General - General Stated Complaint: BLOOD PRESSURE PROBLEMS Time Seen by Provider: 03/01/18 02:04 Notes: Patient is an 88-year-old female that comes to the emergency department for chief complaint of vomiting, diarrhea, and weakness. She comes by EMS, she lives at home with her who called EMS. Patient states that she feels bad but she denies any area of particular pain, she specifically denies headache , chest pain, abdominal pain, she denies shortness of breath. She is unable to tell me how much diarrhea or vomiting she has had. Past medical history includes hypertension, CHF, type 2 diabetes, dementia. TRAVEL OUTSIDE OF THE [place] IN LAST 30 DAYS: No - Related Data Allergies/Adverse Reactions: diazepam [From Valium] Allergy (Verified 02/15/18 09:37) Past Medical History - General Information source: Patient, Relative - Social History Smoking Status: Never Smoker Frequency of alcohol use: None Drug Abuse: None Lives with: Family Family History: CAD, None, Reviewed & Not Pertinent - Past Medical History Cardiac Medical History: Reports: Hx Congestive Heart Failure, Hx Hypercholesterolemia, Hx Hypertension Denies: Hx Coronary Artery Disease, Hx Heart Attack Pulmonary Medical History: Reports: Hx Pneumonia Denies: Hx Asthma, Hx Bronchitis, Hx COPD, Hx Tuberculosis Neurological Medical History: Reports: Hx Cerebrovascular Accident. 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 Denies: Hx Hysterectomy - Immunizations Hx Diphtheria, Pertussis, Tetanus Vaccination: No Hx Pneumococcal Vaccination: 06/14/12 Review of Systems - Review of Systems Constitutional: See HPI EENT: No symptoms reported Cardiovascular: No symptoms reported Respiratory: No symptoms reported Gastrointestinal: See HPI Genitourinary: No symptoms reported Female Genitourinary: No symptoms reported Musculoskeletal: No symptoms reported Skin: No symptoms reported Hematologic/Lymphatic: No symptoms reported Neurological/Psychological: No symptoms reported Physical Exam - Vital signs Vitals: Temp Pulse Resp BP Pulse Ox 96.0 F L 91 24 H 227/89 H 95 03/01/18 01:58 03/01/18 01:58 03/01/18 01:58 03/01/18 01:58 03/01/18 01:58 - Notes Notes: GENERAL: Patient pale, diaphoretic, and well-appearing, she still responsive and cooperative HEAD: Normocephalic, atraumatic. EYES: Pupils equal, round, and reactive to light. Extraocular movements intact. ENT: Oral mucosa dry, tongue midline. NECK: Full range of motion. Supple. Trachea midline. LUNGS: Clear to auscultation bilaterally, no wheezes, rales, or rhonchi. No respiratory distress. HEART: Regular rate and rhythm. No murmur ABDOMEN: Soft, non-tender. Non-distended. Bowel sounds present in all 4 quadrants. EXTREMITIES: Moves all 4 extremities spontaneously. No edema, normal radial and dorsalis pedis pulses bilaterally. No cyanosis. BACK: no cervical, thoracic, lumbar midline tenderness. No saddle anesthesia, normal distal neurovascular exam. NEUROLOGICAL: Alert and oriented x3. Normal speech. [cranial nerves II through XII grossly intact]. SKIN: Pale and diaphoretic Course - Re-evaluation Re-evalutation: On my initial evaluation patient is pale, diaphoretic, marked hypertension noted , unable to obtain oral temperature, will obtain rectal temperature. She is denying anything other than feeling generally "bad" and weak. Her abdomen is soft. Switching from pediatric cuff to regular cuff to reobtain blood pressure , workup initiated. 03/01/18 02:49 came to bedside, he states that she started vomiting and having diarrhea persistently, about 5 episodes, nonbloody, her blood pressure started trending up, he called the ambulance. He denies any other symptoms or any other abnormalities noted. He does state that she has a history of C. difficile. CBC shows mild leukocytosis, no shift, nonspecific. Chemistry showing minimal elevation of LFTs and alk phos, bilirubin is normal. Lipase is significantly elevated at 1400. Urinalysis unremarkable. Chest x-ray unremarkable. Troponin is not elevated. Patient has already had a cholecystectomy. CAT scan was performed, does not show abscess or acute concerning abnormality. Patient much more comfortable after pain and nausea medication, she was given 500 cc bolus but not more fluids because of her congestive heart failure. Blood pressure initially markedly elevated, this improved down to 170 systolic, it is starting to trend upwards again. No chest pain or headache reported. Because of patient's age, pancreatitis, and ill appearance discussed with , will discuss with hospitalist for admission. Discussed with Dr. Parada, patient will be admitted to telemetry full admission. - Vital Signs Vital signs: Temp Pulse Resp BP Pulse Ox 96.0 F L 67 22 H 194/84 H 98 03/01/18 01:58 03/01/18 05:07 03/01/18 05:07 03/01/18 05:07 03/01/18 05:07 - Laboratory Result Diagrams: 03/01/18 02:00 03/01/18 06:37 Laboratory results interpreted by me: 03/01/18 03/01/18 03/01/18 02:00 02:00 02:00 WBC 10.7 H RDW 19.0 H Carbon Dioxide 31 H Creatinine 0.49 L Glucose 280 H AST 72 H ALT 54 H Alkaline Phosphatase 245 H Lipase 1322.7 H TSH 10.60 H Urine Protein Urine Glucose (UA) 03/01/18 02:32 WBC RDW Carbon Dioxide Creatinine Glucose AST ALT Alkaline Phosphatase Lipase TSH Urine Protein >=500 H Urine Glucose (UA) 500 H Discharge - Discharge Clinical Impression: Nausea vomiting and diarrhea Acute pancreatitis Qualifiers: Pancreatitis type: unspecified pancreatitis type Acute pancreatitis complication: unspecified Qualified Code(s): K85.90 - Acute pancreatitis without necrosis or infection, unspecified Condition: Stable Disposition: ADMITTED INPATIENT Admitting Provider: Hospitalist Unit Admitted: Telemetry
[2018-03-01 02:24] LABS: ABSOLUTE BASOPHILS # (AUTO) 0.1 10^3/uL (0.0-0.2); ABSOLUTE EOSINOPHILS # (AUTO) 0.1 10^3/uL (0.0-0.6); ABSOLUTE LYMPHOCYTES (AUTO) 1.8 10^3/uL (0.5-4.7); ABSOLUTE MONOCYTES (AUTO) 0.7 10^3/uL (0.1-1.4); BASOPHILS % (AUTO) 0.7 % (0-2); HEMATOCRIT 45.3 % (36.0-47.0); MEAN CORPUSCULAR HEMOGLOBIN 28.5 pg (27.0-33.4); MEAN CORPUSCULAR HGB CONC 33.2 g/dL (32.0-36.0); MEAN CORPUSCULAR VOLUME 86 fl (80-97); MONOCYTES % (AUTO) 6.4 % (3-13); PLATELET COUNT 427 10^3/uL (150-450); RED BLOOD COUNT 5.27 10^6/uL (3.72-5.28); SEGMENTED NEUTROPHILS % (AUTO) 74.9 % (42-78); TOTAL CELLS COUNTED % (AUTO) 100 %; WHITE BLOOD COUNT 10.7 10^3/uL (4.0-10.5)
[2018-03-01 02:52] LABS: ALANINE AMINOTRANSFERASE 54 U/L (9-52); ALBUMIN 4.2 g/dL (3.5-5.0); ALKALINE PHOSPHATASE 245 U/L (38-126); ANION GAP 9 (5-19); ASPARTATE AMINO TRANSFERASE 72 U/L (14-36); BILIRUBIN,DIRECT 0.4 mg/dL (0.0-0.4); BILIRUBIN,TOTAL 0.5 mg/dL (0.2-1.3); BLOOD UREA NITROGEN 8 mg/dL (7-20); CALCIUM 9.3 mg/dL (8.4-10.2); CARBON DIOXIDE 31 mmol/L (22-30); CHLORIDE 101 mmol/L (98-107); GLUCOSE 280 mg/dL (75-110); LIPASE 1322.7 U/L (23-300); POTASSIUM 3.6 mmol/L (3.6-5.0); SODIUM 141.3 mmol/L (137-145); TOTAL PROTEIN 7.4 g/dL (6.3-8.2)
--- NOTE | 2018-03-01 03:00 | RADIOLOGY REPORT (SQ) ---
EXAM DESCRIPTION: XR CHEST 1 VIEW COMPLETED DATE/TME: 03/01/2018 02:09 CLINICAL HISTORY: diaphoresis, abnormal right lung sounds COMPARISON: 12/14/2017 FINDINGS: Single frontal view of the chest. Atherosclerotic calcification aortic arch. Cardiomegaly. Elevation the right hemidiaphragm. Leads overlie the chest. Postoperative change in the right axillary region. No consolidation, pneumothorax, or pleural effusion. No acute osseous abnormalities. Upper abdominal soft tissues are unremarkable. IMPRESSION: 1. No acute pulmonary process identified. Cardiomegaly.
[2018-03-01 03:08] LABS: APPEARANCE,URINE CLEAR; BILIRUBIN,URINE NEGATIVE (NEGATIVE); COLOR,URINE STRAW; GLUCOSE, URINE 500 mg/dL (NEGATIVE); KETONES,URINE NEGATIVE (NEGATIVE); PROTEIN,URINE >=500 mg/dL (NEGATIVE); URINE SPECIFIC GRAVITY 1.009; UROBILINOGEN,URINE NEGATIVE mg/dL (<2.0)
[2018-03-01 03:09] LABS: LEUKOCYTE ESTERASE,URINE NEGATIVE (NEGATIVE); NITRITE,URINE NEGATIVE (NEGATIVE)
[2018-03-01] MEDS ORDERED: ONDANSETRON HCL INJ/PF 4 MG/2 ML SDV IV ONE (03:59)
[2018-03-01] MEDS ORDERED: NORMAL SALINE 1000 ML 500 ML IV ONE (04:00)
[2018-03-01] MEDS ORDERED: MORPHINE SULFATE 10 MG/ML INJ IV ONE (04:04)
--- NOTE | 2018-03-01 05:31 | RADIOLOGY REPORT (SQ) ---
EXAM DESCRIPTION: CT ABDOMEN PELVIS WITH IV CONTRAST COMPLETED DATE/TME: 03/01/2018 03:59 CLINICAL HISTORY: elevated lipase, abdominal pain, vomiting. CREAT 0.49 COMPARISON: None Available. TECHNIQUE: CT of the abdomen and pelvis performed following IV administration of 69 mL of Omnipaque 350. DLP: 1081.90 mGycm FINDINGS: Lung Bases: Chronic appearing interstitial opacities in the lung bases bilaterally. Cardiomegaly. Enlarged pulmonary arteries to be seen with pulmonary arterial hypertension. Coronary artery atherosclerosis. Calcified hilar lymph nodes. Bones: No destructive bone lesions identified. Degenerative change of the spine. Ill-defined cyst in the right lumbar paraspinous musculature which may represent a synovial cyst. Abdomen: Liver: The liver has normal size and density. No intrahepatic mass. Mild intrahepatic biliary dilatation . Dilation of the common bile duct measuring 0.9 cm. Calcified granulomas. Gallbladder: Prior cholecystectomy. Spleen, Pancreas, and Adrenal Glands: Calcified splenic granulomas. Mild prominence of the pancreatic duct. No abnormalities of the adrenal glands. No peripancreatic inflammatory change identified. Kidneys: The kidneys have normal size and contour without evidence of solid mass or hydronephrosis. Bosniak class I bilateral renal cysts. No hydronephrosis. Vasculature: Aortoiliac atherosclerosis. IVC is unremarkable. The portal vein is patent. The proximal visceral and renal arteries are patent. Stomach: The stomach and duodenum have normal course. Other: No free intraperitoneal air. No free fluid or lymphadenopathy. Pelvis: Bladder: Urinary bladder is unremarkable. Bowel: No dilated loops of large or small bowel. Scattered diverticula throughout the colon. No definite pericolic inflammatory change. Appendix: Not visualized. Pelvis: Uterus is not enlarged. IMPRESSION: 1. Mild dilatation of the common bile duct measuring 0.9 cm as well as mild intrahepatic biliary dilatation and mild dilatation of the pancreatic duct. These findings could be related to prior cholecystectomy. If there is concern for biliary obstruction MRCP could provide additional characterization. 2. No peripancreatic inflammatory change. 3. Cardiomegaly with coronary artery atherosclerosis. 4. Diverticulosis without evidence of acute diverticulitis. 5. Cystic structure in the right lumbar paraspinous muscles measuring 2.9 cm. This could represent a synovial cyst. This exam was performed according to our departmental dose-optimization program, which includes automated exposure control, adjustment of the mA and/or kV according to patient size and/or use of iterative reconstruction technique.
[2018-03-01] MEDS ORDERED: NITROGLYCERIN 2% OINTMENT 1 GM PACKET TP ONE (05:44)
[2018-03-01] MEDS ORDERED: KETOROLAC TROMETHAMINE INJ/PF 30 MG/1 ML SDV IV PRN (05:51)
[2018-03-01] MEDS ORDERED: ACETAMINOPHEN 650 MG SUPP.RECT PR PRN (05:52)
[2018-03-01] MEDS ORDERED: ENALAPRILAT DIHYDRATE INJ/PF 2.5 MG/2 ML SDV IV ONE (05:52)
[2018-03-01] MEDS ORDERED: MAG HYDROX/AL HYDROX/SIMETH SUSP 30 ML UDCUP PO PRN (05:52)
--- NOTE | 2018-03-01 06:41 | PDOC H&P ---
History of Present Illness Admission Date/PCP: 03/01/18 06:00 CORAZON CARRION PA-C History of Present Illness: SANDY DANG is a 88 year old female with a past medical history of moderate diastolic heart failure, hypertension, dyslipidemia, COPD, diabetes, generalized debility, dementia and remote breast cancer. She presents with her who is able to provide history stating 24 hours of nausea and epigastric pain associated with foul-smelling loose stool. She denies prior complaints, fever, suspect meals, infectious contacts or new medication. In the emergency room she is found to have hyperglycemia, hypertensive urgency and acute pancreatitis. She started on Nitropaste and referred to the hospitalist for admission. 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 Psychiatric Medical History: Reports: Dementia Denies: Depression Hematology: Reports: Anemia Past Surgical History Past Surgical History: Reports: Appendectomy, Cholecystectomy, Mastectomy - right, Other - Unknown Denies: Hysterectomy Social History Information Source: Relative, Emergency Med Personnel, [facility] Records Lives with: Spouse/Significant other Smoking Status: Unknown if Ever Smoked Frequency of Alcohol Use: None Hx Recreational Drug Use: No Drugs: None Hx Prescription Drug Abuse: No - Advance Directive Resuscitation Status: Do Not Resuscitate Family History Family History: CAD Parental Family History Reviewed: Yes Children Family History Reviewed: Yes Sibling(s) Family History Reviewed.: Yes Medication/Allergy Home Medications: Amlodipine Besylate [Norvasc 10 mg Tablet] 10 mg PO QHS 07/06/17 Anastrozole [Arimidex 1 mg Tablet] 1 mg PO DAILY 07/06/17 Atorvastatin Calcium [Lipitor 20 mg Tablet] 20 mg PO QHS 07/06/17 Calcium Carbonate/Vitamin D3 [Oyster Shell 500-Vit D3 200 Tb] 1 each PO QPM Donepezil HCl [Aricept] 10 mg PO QPM 07/06/17 Eplerenone [Inspra] 50 mg PO DAILY 07/06/17 Escitalopram Oxalate [Lexapro 10 mg Tablet] 10 mg PO QPM 07/06/17 Levothyroxine Sodium [Synthroid] 137 mcg PO Q6AM 07/06/17 Losartan Potassium [Cozaar 50 mg Tablet] 50 mg PO QHS 07/06/17 Metformin HCl [Glucophage 500 mg Tablet] 500 mg PO BID 07/06/17 Ropinirole HCl [Requip 2 mg Tablet] 2 mg PO Q12 07/06/17 Acetaminophen [Tylenol Soln 325 mg/10.15 ml Udcup] 325 mg NG Q4HP PRN udc 07/22 Docusate Sodium [Colace 100 mg Capsule] 100 mg PO DAILY capsule 07/22/17 Ferrous Sulfate 325 mg PO BID 60 Days tablet 07/22/17 Ferrous Sulfate [Feosol 325 mg Tablet] 325 mg PO BIDPCBS tablet 07/22/17 Insulin Glargine,Hum.rec.anlog [Lantus Insulin 100 Unit/mL] 8 unit SUBCUT DAILY insuln.pen 07/22/17 Insulin Lispro [Humalog Insulin (Lispro) 100 unit/mL] 0 - 12 unit SUBCUT ACHSP PRN unit 07/22/17 Ipratropium/Albuterol Sulfate [Duoneb 3 ml Ampul] 3 ml NEB RTQ6 vial.neb Vancomycin HCl 250 mg PO Q6H #40 capsule 07/22/17 Amlodipine Besylate [Norvasc 10 mg Tablet] 10 mg PO DAILY 12/14/17 Anastrozole [Arimidex 1 mg Tablet] 1 mg PO DAILY 12/14/17 Ascorbic Acid [Vitamin C 500 mg Tablet] 500 mg PO DAILY 12/14/17 Aspirin [Aspirin 325 mg Tablet] 325 mg PO DAILY 12/14/17 Atorvastatin Calcium [Lipitor 20 mg Tablet] 20 mg PO DAILY 12/14/17 Calcium Carbonate/Vitamin D3 [Calcium 500 + Vit D Caplet] 1 tab PO DAILY Cholestyramine (with Sugar) [Cholestyramine Packet] 4 gm PO MEALS 12/14/17 Donepezil HCl [Aricept] 10 mg PO QPM 12/14/17 Eplerenone [Inspra] 50 mg PO Q12 12/14/17 Ergocalciferol (Vitamin D2) [Drisdol 50,000 unit (1.25MG) Capsule] 50,000 unit PO [id number] 12/14/17 Escitalopram Oxalate [Lexapro] 20 mg PO DAILY 12/14/17 Ferrous Sulfate [Feosol 325 mg Tablet] 325 mg PO DAILY 12/14/17 Furosemide [Lasix 20 mg Tablet] 20 mg PO DAILY 12/14/17 Glimepiride 2 mg PO BID 12/14/17 Levothyroxine Sodium [Synthroid] 137 mcg PO Q6AM 12/14/17 Losartan Potassium [Cozaar 100 mg Tablet] 100 mg PO DAILY 12/14/17 Metformin HCl [Glucophage 500 mg Tablet] 500 mg PO BIDBS 12/14/17 Multivitamin [Tab-A-Amrik (Multiple Vitamin) Tablet] 1 tab PO DAILY 12/14/17 Omeprazole 20 mg PO DAILY 12/14/17 Potassium Chloride [Klor-Con 10 Meq Capsule ER] 10 meq PO DAILY 12/14/17 Ropinirole HCl [Requip] 2 mg PO Q12 12/14/17 Carvedilol [Coreg 12.5 mg Tablet] 12.5 mg PO Q12 #60 tablet 12/17/17 Anastrozole [Arimidex] 1 mg PO DAILY 01/06/18 Aspirin [Aspirin 81 mg Chewable Tablet] 81 mg PO QHS 01/06/18 Atorvastatin Calcium [Lipitor 20 mg Tablet] 20 mg PO QHS 01/06/18 Calcium Carbonate/Vitamin D3 [Oyster Shell 500-Vit D3 200 Tb] 1 each PO QPM Carvedilol [Coreg] 12.5 mg PO Q12 01/06/18 Donepezil HCl [Aricept] 10 mg PO QPM 01/06/18 Eplerenone [Inspra] 50 mg PO DAILY 01/06/18 Escitalopram Oxalate [Lexapro] 20 mg PO QPM 01/06/18 Furosemide [Lasix 20 mg Tablet] 20 mg PO DAILY 01/06/18 Glimepiride [Amaryl 1 mg Tablet] 1 mg PO BID 01/06/18 Levothyroxine Sodium [Synthroid] 150 mcg PO Q6AM 01/06/18 Losartan Potassium [Cozaar 100 mg Tablet] 100 mg PO QHS 01/06/18 Metformin HCl [Glucophage] 500 mg PO BIDACBS 01/06/18 Nifedipine [Nifedipine ER] 30 mg PO QHS 07/26/18 Omeprazole 20 mg PO QHS 01/06/18 Ropinirole HCl [Requip 2 mg Tablet] 2 mg PO Q12 01/06/18 Sulfamethoxazole/Trimethoprim [Septra-Ds 800-160 mg Tablet] 1 tab PO Q12A #10 tablet 01/09/18 Allergies/Adverse Reactions: diazepam [From Valium] Allergy (Verified 02/15/18 09:37) Review of Systems ROS unobtainable: Due to mental status Constitutional: ABSENT: chills, fever(s), headache(s), weight gain, weight loss Eyes: ABSENT: visual disturbances Ears: ABSENT: hearing changes Cardiovascular: ABSENT: chest pain, dyspnea on exertion, edema, orthropnea, palpitations Respiratory: ABSENT: cough, hemoptysis Gastrointestinal: ABSENT: abdominal pain, constipation, diarrhea, hematemesis, hematochezia, nausea, vomiting Genitourinary: ABSENT: dysuria, hematuria Musculoskeletal: ABSENT: joint swelling Integumentary: ABSENT: rash, wounds Neurological: ABSENT: abnormal gait, abnormal speech, confusion, dizziness, focal weakness, syncope Psychiatric: ABSENT: anxiety, depression, homidical ideation, suicidal ideation Endocrine: ABSENT: cold intolerance, heat intolerance, polydipsia, polyuria Hematologic/Lymphatic: ABSENT: easy bleeding, easy bruising Physical Exam Vital Signs: Temp Pulse Resp BP Pulse Ox 96.0 F L 67 22 H 194/84 H 98 03/01/18 01:58 03/01/18 05:07 03/01/18 05:07 03/01/18 05:07 03/01/18 05:07 General appearance: PRESENT: cooperative, disheveled, hard of hearing, mild distress, thin, other - Chronically ill appearing with cachexia and temporal wasting Head exam: PRESENT: atraumatic, normocephalic Eye exam: PRESENT: conjunctiva pink, EOMI, PERRLA. ABSENT: scleral icterus Ear exam: PRESENT: normal external ear exam Mouth exam: PRESENT: dry mucosa, tongue midline Neck exam: ABSENT: carotid bruit, JVD, lymphadenopathy, thyromegaly Respiratory exam: PRESENT: clear to auscultation stella. ABSENT: rales, rhonchi, wheezes Cardiovascular exam: PRESENT: RRR. ABSENT: diastolic murmur, rubs, systolic murmur Pulses: PRESENT: normal dorsalis pedis pul Vascular exam: PRESENT: normal capillary refill GI/Abdominal exam: PRESENT: hyperactive bowel sounds, tenderness - Epigastric. ABSENT: distended, firm, guarding Rectal exam: PRESENT: deferred Extremities exam: PRESENT: full ROM. ABSENT: calf tenderness, clubbing, pedal edema Neurological exam: PRESENT: alert, altered, awake, oriented to person, CN II- XII grossly intact. ABSENT: motor sensory deficit Psychiatric exam: PRESENT: appropriate affect, normal mood. ABSENT: homicidal ideation, suicidal ideation Skin exam: PRESENT: dry, intact, warm. ABSENT: cyanosis, rash Results Impressions: Chest X-Ray 03/01/18 02:09 IMPRESSION: 1. No acute pulmonary process identified. Cardiomegaly. Abdomen/Pelvis CT 03/01/18 03:59 IMPRESSION: 1. Mild dilatation of the common bile duct measuring 0.9 cm as well as mild intrahepatic biliary dilatation and mild dilatation of the pancreatic duct. These findings could be related to prior cholecystectomy. If there is concern for biliary obstruction MRCP could provide additional characterization. 2. No peripancreatic inflammatory change. 3. Cardiomegaly with coronary artery atherosclerosis. 4. Diverticulosis without evidence of acute diverticulitis. 5. Cystic structure in the right lumbar paraspinous muscles measuring 2.9 cm. This could represent a synovial cyst. This exam was performed according to our departmental dose-optimization program, which includes automated exposure control, adjustment of the mA and/or kV according to patient size and/or use of iterative reconstruction technique. Assessment & Plan - Diagnosis (1) Acute pancreatitis Qualifiers: Pancreatitis type: unspecified pancreatitis type Acute pancreatitis complication: unspecified Qualified Code(s): K85.90 - Acute pancreatitis without necrosis or infection, unspecified Is this a current diagnosis for this admission?: Yes Plan: Unclear cause, evaluate triglycerides, bowel rest, IV fluids and symptomatic management (2) Nausea vomiting and diarrhea Is this a current diagnosis for this admission?: Yes Plan: Secondary to #1, symptomatic management, follow-up chemistry electrolyte repletion as needed (3) Hypertensive urgency Is this a current diagnosis for this admission?: Yes Plan: Comp gated by dementia, IV PEPE inhibitor, hydralazine and nitrates. (4) Dyslipidemia Is this a current diagnosis for this admission?: Yes Plan: Evaluate triglycerides for possible cause of acute pancreatitis. 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 (6) Aspiration into lower respiratory tract Is this a current diagnosis for this admission?: No Plan: Patient has risk of aspiration when p.o. resumed requires nectar thickened liquids and pured diet - Time Time Spent: 50 to 70 Minutes - Inpatient Certification Medical Necessity: Need Close Monitoring Due to Risk of Patient Decompensation
[2018-03-01] MEDS: LEVOTHYROXINE SODIUM 0.075 MG TABLET PO SCH (06:48)
[2018-03-01] MEDS: HEPARIN SOD (PORCINE) 5,000 UNIT/ML 1 ML SYRINGE SUBCUT SCH ×3 (06:49→21:52)
[2018-03-01] MEDS ORDERED: CARVEDILOL 12.5 MG TABLET PO ONE (07:00)
[2018-03-01] MEDS ORDERED: AMLODIPINE BESYLATE 10 MG TABLET PO ONE (07:00)
[2018-03-01 07:09] LABS: ALANINE AMINOTRANSFERASE 70 U/L (9-52); ALBUMIN 3.2 g/dL (3.5-5.0); ALKALINE PHOSPHATASE 198 U/L (38-126); ANION GAP 8 (5-19); ASPARTATE AMINO TRANSFERASE 145 U/L (14-36); BILIRUBIN,DIRECT 0.4 mg/dL (0.0-0.4); BILIRUBIN,TOTAL 0.4 mg/dL (0.2-1.3); BLOOD UREA NITROGEN 8 mg/dL (7-20); CALCIUM 8.3 mg/dL (8.4-10.2); CARBON DIOXIDE 30 mmol/L (22-30); CHLORIDE 101 mmol/L (98-107); GLUCOSE 176 mg/dL (75-110); POTASSIUM 3.8 mmol/L (3.6-5.0); SODIUM 138.9 mmol/L (137-145)
[2018-03-01] MEDS ORDERED: EPLERENONE 50 MG PO SCH (08:30)
[2018-03-01] MEDS: LEVOTHYROXINE SODIUM 0.1 MG TABLET PO SCH (09:18)
[2018-03-01] MEDS: NORMAL SALINE 1000 ML 1,000 ML IV PRN ×2 (09:34→20:23)
[2018-03-01] MEDS ORDERED: (PENDING PHARMACY ID) (Eplerenone [Inspra] 50 MG) PO SCH (10:00)
[2018-03-01] MEDS ORDERED: EPLERENONE 25 MG TABLET PO SCH (10:00)
[2018-03-01] MEDS: DOCUSATE SODIUM 100 MG CAPSULE PO SCH (11:50)
[2018-03-01] MEDS: ASPIRIN 325 MG TABLET PO SCH (11:50)
[2018-03-01] MEDS: ATORVASTATIN CALCIUM 20 MG TABLET PO SCH (11:50)
[2018-03-01] MEDS: EPLERENONE 25 MG TABLET PO SCH (11:51)
--- NOTE | 2018-03-01 15:33 | EKG REPORT ---
SEVERITY:- ABNORMAL ECG - SINUS RHYTHM VENTRICULAR BIGEMINY INCOMPLETE RIGHT BUNDLE BRANCH BLOCK LVH WITH IVCD AND SECONDARY REPOL ABNRM : Confirmed by: Sharron Borrero MD 01-Mar-2018 15:32:28
[2018-03-01] MEDS: ESCITALOPRAM OXALATE 10 MG TABLET PO SCH (18:38)
[2018-03-01] MEDS: HYDRALAZINE HCL INJ/PF 20 MG/1 ML SDV IV PRN (18:38)
--- NOTE | 2018-03-01 19:01 | PDOC PROGRESS REPORT ---
Subjective Progress Note for:: 03/01/18 Subjective:: SANDY DANG is a 88 year old female who presented with her who was able to detail 24 hours of nausea and epigastric pain associated with foul- smelling loose stool. He denied prior complaints, fever, suspect meals, infectious contacts or new medication. In the emergency room she was found to have hyperglycemia, hypertensive urgency and acute pancreatitis. She started on Nitropaste and referred to the hospitalist for admission. She has continued to improve symptomatically since her admission with reduction in her abdominal pain and a significant desire to eat. Her nausea and vomiting have resolved. Will be started on an oral diet today and further evaluation will be undertaken as appropriate. Reason For Visit: HTN EMERGENCY PANCREATITIS, DEMENTIA Physical Exam Vital Signs: Temp Pulse Resp BP Pulse Ox 98.0 F 56 L 16 167/74 H 99 03/01/18 17:23 03/01/18 17:23 03/01/18 17:23 03/01/18 17:23 03/01/18 17:23 Intake & Output 02/28/18 03/01/18 03/02/18 06:59 06:59 06:59 Intake Total 1100 Balance 1100 General appearance: PRESENT: no acute distress, cooperative Head exam: PRESENT: atraumatic, normocephalic Eye exam: PRESENT: conjunctiva pink. ABSENT: conjunctival injection Ear exam: PRESENT: normal external ear exam. ABSENT: bleeding, drainage Mouth exam: PRESENT: neck supple, tongue midline Neck exam: ABSENT: thyromegaly, tracheal deviation Respiratory exam: PRESENT: clear to auscultation stella, symmetrical, unlabored Cardiovascular exam: PRESENT: RRR. ABSENT: clicks, diastolic murmur, gallop, rubs, systolic murmur Pulses: PRESENT: normal carotid pulses, normal radial pulses, normal dorsalis pedis pul Vascular exam: PRESENT: normal capillary refill. ABSENT: pallor GI/Abdominal exam: PRESENT: normal bowel sounds, soft Rectal exam: PRESENT: deferred Extremities exam: ABSENT: joint swelling, pedal edema Musculoskeletal exam: PRESENT: full ROM, normal inspection Neurological exam: PRESENT: alert, awake, oriented to person, CN II-XII grossly intact. ABSENT: oriented to place, oriented to time, oriented to situation, motor sensory deficit Psychiatric exam: PRESENT: appropriate affect, normal mood, other - Seems somewhat confused. Skin exam: ABSENT: jaundice, rash, urticaria Results Laboratory Results: 03/01/18 06:37 03/01/18 03/01/18 06:37 06:37 Sodium 138.9 Potassium 3.8 Chloride 101 Carbon Dioxide 30 Anion Gap 8 BUN 8 Creatinine 0.43 L Est GFR ( Amer) > 60 Est GFR (Non-Af Amer) > 60 Glucose 176 H Lactic Acid 2.2 H Calcium 8.3 L Total Bilirubin 0.4 AST 145 H ALT 70 H Alkaline Phosphatase 198 H Total Protein 6.0 L Albumin 3.2 L Impressions: Chest X-Ray 03/01/18 02:09 IMPRESSION: 1. No acute pulmonary process identified. Cardiomegaly. Abdomen/Pelvis CT 03/01/18 03:59 IMPRESSION: 1. Mild dilatation of the common bile duct measuring 0.9 cm as well as mild intrahepatic biliary dilatation and mild dilatation of the pancreatic duct. These findings could be related to prior cholecystectomy. If there is concern for biliary obstruction MRCP could provide additional characterization. 2. No peripancreatic inflammatory change. 3. Cardiomegaly with coronary artery atherosclerosis. 4. Diverticulosis without evidence of acute diverticulitis. 5. Cystic structure in the right lumbar paraspinous muscles measuring 2.9 cm. This could represent a synovial cyst. This exam was performed according to our departmental dose-optimization program, which includes automated exposure control, adjustment of the mA and/or kV according to patient size and/or use of iterative reconstruction technique. Assessment & Plan - Diagnosis (1) Acute pancreatitis Qualifiers: Pancreatitis type: unspecified pancreatitis type Acute pancreatitis complication: unspecified Qualified Code(s): K85.90 - Acute pancreatitis without necrosis or infection, unspecified Is this a current diagnosis for this admission?: Yes Plan: Patient appears to be recovering nicely from her nausea and vomiting symptoms of her pancreatitis. She was started on oral diet and observe for continued resolution. (2) Hypothyroidism Qualifiers: Hypothyroidism type: unspecified Qualified Code(s): E03.9 - Hypothyroidism , unspecified Is this a current diagnosis for this admission?: Yes Plan: We will recheck thyroid levels in the morning and initiate/adjust therapy as appropriate - Time Time Spent with patient: 25-34 minutes Medications reviewed and adjusted accordingly: Yes
[2018-03-02] MEDS: AMLODIPINE BESYLATE 10 MG TABLET PO SCH ×2 (00:37→22:08)
[2018-03-02] MEDS: CARVEDILOL 12.5 MG TABLET PO SCH ×3 (00:38→22:08)
[2018-03-02 04:51] LABS: ABSOLUTE EOSINOPHILS # (AUTO) 0.1 10^3/uL (0.0-0.6); ABSOLUTE LYMPHOCYTES (AUTO) 1.8 10^3/uL (0.5-4.7); ABSOLUTE MONOCYTES (AUTO) 0.7 10^3/uL (0.1-1.4); ABSOLUTE NEUT (AUTO) 3.2 10^3/uL (1.7-8.2); BASOPHILS % (AUTO) 0.8 % (0-2); EOSINOPHILS % (AUTO) 1.6 % (0-6); HEMATOCRIT 35.5 % (36.0-47.0); LYMPHOCYTES % (AUTO) 30.6 % (13-45); MEAN CORPUSCULAR HEMOGLOBIN 28.5 pg (27.0-33.4); MEAN CORPUSCULAR HGB CONC 33.4 g/dL (32.0-36.0); MEAN CORPUSCULAR VOLUME 85 fl (80-97); MONOCYTES % (AUTO) 12.3 % (3-13); PLATELET COUNT 307 10^3/uL (150-450); RED BLOOD COUNT 4.17 10^6/uL (3.72-5.28); SEGMENTED NEUTROPHILS % (AUTO) 54.7 % (42-78); TOTAL CELLS COUNTED % (AUTO) 100 %; WHITE BLOOD COUNT 5.9 10^3/uL (4.0-10.5)
[2018-03-02 04:52] LABS: HEMOGLOBIN 11.9 g/dL (12.0-15.5)
[2018-03-02 05:06] LABS: ALANINE AMINOTRANSFERASE 108 U/L (9-52); ALBUMIN 2.5 g/dL (3.5-5.0); ALKALINE PHOSPHATASE 151 U/L (38-126); AMYLASE 56 U/L (30-110); ASPARTATE AMINO TRANSFERASE 199 U/L (14-36); BILIRUBIN,DIRECT 0.4 mg/dL (0.0-0.4); BILIRUBIN,TOTAL 0.4 mg/dL (0.2-1.3); BLOOD UREA NITROGEN 9 mg/dL (7-20); CALCIUM 8.2 mg/dL (8.4-10.2); CHOLESTEROL 93.75 mg/dL (0-200); GLUCOSE 99 mg/dL (75-110); POTASSIUM 3.4 mmol/L (3.6-5.0); TOTAL PROTEIN 4.9 g/dL (6.3-8.2); TRIGLYCERIDES 99 mg/dL (<150)
[2018-03-02 05:11] LABS: CARBON DIOXIDE 32 mmol/L (22-30); CHLORIDE 102 mmol/L (98-107); SODIUM 138.1 mmol/L (137-145)
[2018-03-02 05:17] LABS: DIRECT LDL 34 mg/dL (<100)
[2018-03-02 05:18] LABS: ANION GAP 4 (5-19)
[2018-03-02] MEDS: LEVOTHYROXINE SODIUM 0.1 MG TABLET PO SCH (06:28)
[2018-03-02] MEDS: LEVOTHYROXINE SODIUM 0.075 MG TABLET PO SCH (06:28)
[2018-03-02] MEDS: HEPARIN SOD (PORCINE) 5,000 UNIT/ML 1 ML SYRINGE SUBCUT SCH ×3 (06:29→22:08)
[2018-03-02] MEDS: HYDRALAZINE HCL INJ/PF 20 MG/1 ML SDV IV PRN (08:36)
[2018-03-02] MEDS: LIPASE/PROTEASE/AMYLASE 1 CAP CAPSULE.DR PO SCH ×3 (08:36→19:14)
[2018-03-02] MEDS: DOCUSATE SODIUM 100 MG CAPSULE PO SCH (11:24)
[2018-03-02] MEDS: ATORVASTATIN CALCIUM 20 MG TABLET PO SCH (11:24)
[2018-03-02] MEDS: EPLERENONE 25 MG TABLET PO SCH (11:25)
[2018-03-02] MEDS: ASPIRIN 325 MG TABLET PO SCH (11:25)
[2018-03-02 14:15] LABS: FREE T3 2.68 pg/mL (2.77-5.27); FREE T4 (FREE THYROXINE) 0.97 ng/dL (0.78-2.19)
[2018-03-02] MEDS ORDERED: INSULIN LISPRO 100 UNIT/ML 3 ML VIAL SUBCUT PRN (14:16)
--- NOTE | 2018-03-02 17:40 | PDOC PROGRESS REPORT ---
Subjective Progress Note for:: 03/02/18 Subjective:: ARIANA DANG is a 88 year old female who presented with her who was able to detail 24 hours of nausea and epigastric pain associated with foul- smelling loose stool. He denied prior complaints, fever, suspect meals, infectious contacts or new medication. In the emergency room she was found to have hyperglycemia, hypertensive urgency and acute pancreatitis. She started on Nitropaste and referred to the hospitalist for admission. She has continued to improve symptomatically since her admission with reduction in her abdominal pain and a significant desire to eat. Her nausea and vomiting have resolved. Will be started on an oral diet today and further evaluation will be undertaken as appropriate. 03/02/18: Ariana continues to show good improvement and her lipase is back to near normal levels. She is tolerating oral diet well and is ready to be discharged as soon as discharge planning determines that she has either a safe place to be discharged to at home or make arrangements for her to be discharged to an appropriate facility. Reason For Visit: HTN EMERGENCY PANCREATITIS, DEMENTIA Physical Exam Vital Signs: Temp Pulse Resp BP Pulse Ox 98.6 F 67 17 183/67 H 96 03/02/18 15:41 03/02/18 15:41 03/02/18 15:41 03/02/18 15:41 03/02/18 15:41 Intake & Output 03/01/18 03/02/18 03/03/18 06:59 06:59 06:59 Intake Total 2700 0 Balance 2700 0 Weight 64.5 kg General appearance: PRESENT: no acute distress, cooperative Head exam: PRESENT: atraumatic, normocephalic Eye exam: PRESENT: conjunctiva pink. ABSENT: conjunctival injection Ear exam: PRESENT: normal external ear exam. ABSENT: drainage Mouth exam: PRESENT: moist, neck supple Neck exam: ABSENT: thyromegaly, tracheal deviation Respiratory exam: PRESENT: clear to auscultation stella, symmetrical, unlabored Cardiovascular exam: PRESENT: RRR. ABSENT: clicks, diastolic murmur, gallop, rubs, systolic murmur, tachycardia Pulses: PRESENT: normal radial pulses, normal dorsalis pedis pul Vascular exam: PRESENT: normal capillary refill. ABSENT: pallor GI/Abdominal exam: PRESENT: normal bowel sounds, soft. ABSENT: distended, tenderness Rectal exam: PRESENT: deferred Extremities exam: ABSENT: joint swelling, pedal edema Musculoskeletal exam: PRESENT: full ROM, normal inspection Neurological exam: PRESENT: alert, awake, oriented to person, CN II-XII grossly intact. ABSENT: oriented to place, oriented to time, oriented to situation, motor sensory deficit Psychiatric exam: PRESENT: appropriate affect - Affable and smiling, other - Significantly confused with short and long-term memory deficits Skin exam: ABSENT: jaundice, rash, urticaria Results Laboratory Results: 03/02/18 04:06 03/02/18 04:06 03/02/18 03/02/18 03/02/18 04:06 04:06 04:06 WBC 5.9 RBC 4.17 Hgb 11.9 L D Hct 35.5 L MCV 85 MCH 28.5 MCHC 33.4 RDW 19.0 H Plt Count 307 Seg Neutrophils % 54.7 Lymphocytes % 30.6 Monocytes % 12.3 Eosinophils % 1.6 Basophils % 0.8 Absolute Neutrophils 3.2 Absolute Lymphocytes 1.8 Absolute Monocytes 0.7 Absolute Eosinophils 0.1 Absolute Basophils 0.0 Sodium 138.1 Potassium 3.4 L Chloride 102 Carbon Dioxide 32 H Anion Gap 4 L BUN 9 Creatinine 0.56 Est GFR ( Amer) > 60 Est GFR (Non-Af Amer) > 60 Glucose 99 Calcium 8.2 L Total Bilirubin 0.4 AST 199 H ALT 108 H Alkaline Phosphatase 151 H Total Protein 4.9 L Albumin 2.5 L Triglycerides 99 Cholesterol 93.75 LDL Cholesterol Direct 34 VLDL Cholesterol 20.0 HDL Cholesterol 45 Amylase 56 Lipase 332.0 H Free T4 0.97 Free T3 pg/mL 2.68 L Impressions: Chest X-Ray 03/01/18 02:09 IMPRESSION: 1. No acute pulmonary process identified. Cardiomegaly. Abdomen/Pelvis CT 03/01/18 03:59 IMPRESSION: 1. Mild dilatation of the common bile duct measuring 0.9 cm as well as mild intrahepatic biliary dilatation and mild dilatation of the pancreatic duct. These findings could be related to prior cholecystectomy. If there is concern for biliary obstruction MRCP could provide additional characterization. 2. No peripancreatic inflammatory change. 3. Cardiomegaly with coronary artery atherosclerosis. 4. Diverticulosis without evidence of acute diverticulitis. 5. Cystic structure in the right lumbar paraspinous muscles measuring 2.9 cm. This could represent a synovial cyst. This exam was performed according to our departmental dose-optimization program, which includes automated exposure control, adjustment of the mA and/or kV according to patient size and/or use of iterative reconstruction technique. Assessment & Plan - Diagnosis (1) Acute pancreatitis Qualifiers: Pancreatitis type: unspecified pancreatitis type Acute pancreatitis complication: unspecified Qualified Code(s): K85.90 - Acute pancreatitis without necrosis or infection, unspecified Is this a current diagnosis for this admission?: Yes Plan: Patient symptoms have resolved and her pancreatic enzymes have returned to or near normal. She is tolerating diet very well and is appropriate for discharge as soon as discharge planning can determine a safe environment upon her arrival at home or to whatever facility she will be sent. (2) Hypothyroidism Qualifiers: Hypothyroidism type: unspecified Qualified Code(s): E03.9 - Hypothyroidism , unspecified Is this a current diagnosis for this admission?: Yes Plan: We will recheck thyroid levels in the morning and initiate/adjust therapy as appropriate. Thyroid level was slightly low for the free T3 and on the low end of normal for the free T4. With an elevated TSH is appropriate to increase the patient's levothyroxine dosage at this time and follow this up again in 3-6 weeks. - Time Time Spent with patient: 25-34 minutes Medications reviewed and adjusted accordingly: Yes Within: within 24 hours
[2018-03-02] MEDS: ESCITALOPRAM OXALATE 10 MG TABLET PO SCH (19:13)
[2018-03-03] MEDS: HYDRALAZINE HCL INJ/PF 20 MG/1 ML SDV IV PRN (00:42)
[2018-03-03] MEDS ORDERED: METOPROLOL TARTRATE PF/INJ 5 MG/5 ML SDV IV ONE (03:30)
[2018-03-03] MEDS ORDERED: LEVOTHYROXINE SODIUM 0.1 MG TABLET PO SCH (06:00)
[2018-03-03] MEDS ORDERED: LEVOTHYROXINE SODIUM 0.075 MG TABLET PO SCH (06:00)
[2018-03-03] MEDS: HEPARIN SOD (PORCINE) 5,000 UNIT/ML 1 ML SYRINGE SUBCUT SCH (06:06)
[2018-03-03 08:48] LABS: ABSOLUTE BASOPHILS # (AUTO) 0.1 10^3/uL (0.0-0.2); ABSOLUTE EOSINOPHILS # (AUTO) 0.1 10^3/uL (0.0-0.6); ABSOLUTE LYMPHOCYTES (AUTO) 1.5 10^3/uL (0.5-4.7); ABSOLUTE NEUT (AUTO) 3.6 10^3/uL (1.7-8.2); EOSINOPHILS % (AUTO) 1.1 % (0-6); HEMATOCRIT 41.4 % (36.0-47.0); HEMOGLOBIN 13.6 g/dL (12.0-15.5); LYMPHOCYTES % (AUTO) 24.1 % (13-45); MEAN CORPUSCULAR HEMOGLOBIN 28.2 pg (27.0-33.4); MEAN CORPUSCULAR HGB CONC 32.9 g/dL (32.0-36.0); MEAN CORPUSCULAR VOLUME 86 fl (80-97); MONOCYTES % (AUTO) 15.5 % (3-13); PLATELET COUNT 322 10^3/uL (150-450); RED BLOOD COUNT 4.83 10^6/uL (3.72-5.28); RED CELL DISTRIBUTION WIDTH 19.6 % (11.5-14.0); SEGMENTED NEUTROPHILS % (AUTO) 58.3 % (42-78); TOTAL CELLS COUNTED % (AUTO) 100 %; WHITE BLOOD COUNT 6.2 10^3/uL (4.0-10.5)
[2018-03-03] MEDS: ASPIRIN 325 MG TABLET PO SCH (09:08)
[2018-03-03] MEDS: ATORVASTATIN CALCIUM 20 MG TABLET PO SCH (09:08)
[2018-03-03] MEDS: CARVEDILOL 12.5 MG TABLET PO SCH (09:08)
[2018-03-03] MEDS: DOCUSATE SODIUM 100 MG CAPSULE PO SCH (09:08)
[2018-03-03] MEDS: EPLERENONE 25 MG TABLET PO SCH (09:09)
[2018-03-03] MEDS: LIPASE/PROTEASE/AMYLASE 1 CAP CAPSULE.DR PO SCH ×2 (09:09→13:12)
[2018-03-03 09:11] LABS: ALANINE AMINOTRANSFERASE 143 U/L (9-52); ALKALINE PHOSPHATASE 180 U/L (38-126); ASPARTATE AMINO TRANSFERASE 204 U/L (14-36); BILIRUBIN,DIRECT 0.4 mg/dL (0.0-0.4); BILIRUBIN,TOTAL 0.6 mg/dL (0.2-1.3); BLOOD UREA NITROGEN 9 mg/dL (7-20); CALCIUM 8.8 mg/dL (8.4-10.2); CARBON DIOXIDE 34 mmol/L (22-30); CHLORIDE 101 mmol/L (98-107); GLUCOSE 149 mg/dL (75-110); POTASSIUM 3.4 mmol/L (3.6-5.0); TOTAL PROTEIN 5.6 g/dL (6.3-8.2)
[2018-03-03 09:17] LABS: SODIUM 138.3 mmol/L (137-145)
[2018-03-03 09:18] LABS: ANION GAP 3 (5-19)
--- NOTE | 2018-03-03 14:42 | PDOC DISCHARGE SUMMARY ---
General - Admit/Disc Date/PCP Admission Date/Primary Care Provider: 03/01/18 06:00 CORAZON CARRION PA-C Discharge Date: 03/03/18 - Discharge Diagnosis (1) Acute pancreatitis Is this a current diagnosis for this admission?: Yes Summary: Patient was admitted with a mildly elevated lipase which resolved with fluid therapy and supportive and symptomatic cares. Early feeding was employed with the use of supplemental pancreatic enzymes. Patient tolerated the treatment quite well and will be discharged home in improved and stable condition with this problem resolved. (2) Hypothyroidism Is this a current diagnosis for this admission?: Yes Summary: Patient was found to have a elevated TSH with a low free T3 and a low normal free T4. This would define "euthyroid sick syndrome" her levothyroxine dosage was adjusted and her lab work should be followed up in 3-6 weeks by her primary care provider. 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 - Additional Information Resuscitation Status: Do Not Resuscitate Discharge Diet: Cardiac, Diabetic Discharge Activity: Activity As Tolerated Prescriptions: Amlodipine Besylate [Norvasc 10 mg Tablet] 10 mg PO QHS 30 Days #30 tablet Docusate Sodium [Colace 100 mg Capsule] 100 mg PO DAILY 30 Days #30 capsule Home Medications: Aspirin [Aspirin EC] 81 mg PO QHS 03/01/18 Atorvastatin Calcium [Lipitor 20 mg Tablet] 20 mg PO QHS 03/01/18 Carvedilol [Coreg 12.5 mg Tablet] 12.5 mg PO Q12 03/01/18 Eplerenone [Inspra] 50 mg PO DAILY 03/01/18 Escitalopram Oxalate [Lexapro] 20 mg PO QPM 03/01/18 Amlodipine Besylate [Norvasc 10 mg Tablet] 10 mg PO QHS 30 Days #30 tablet 03/03 Docusate Sodium [Colace 100 mg Capsule] 100 mg PO DAILY 30 Days #30 capsule History of Present Illness History of Present Illness: SANDY DANG is a 88 year old female who presented with her who was able to detail 24 hours of nausea and epigastric pain associated with foul- smelling loose stool. He denied prior complaints, fever, suspect meals, infectious contacts or new medication. In the emergency room she was found to have hyperglycemia, hypertensive urgency and acute pancreatitis. She was started on Nitropaste and referred to the hospitalist for admission. Hospital Course Hospital Course: She has continued to improve symptomatically since her admission with reduction in her abdominal pain and a significant desire to eat. Her nausea and vomiting have resolved. She was started on an oral diet and tolerated it well. Recommendations were made to the family that she be considered for penitentiary placement. Her insisted that she be discharged home and refused offers of home health care and offers of consideration for hospice care. Given her overall state of improvement is felt she could be discharged home in improved and stable condition and follow-up with her primary care physician in 1-2 weeks for reevaluation. Her indicated that he was not rested and having any surgical evaluation or surgery other procedure related to any of her medical problems. Patient was noted to have a guaiac positive stool 2 prior to discharge but her hemoglobin remained stable and given her 's interest in not having any further procedures or evaluation done it was determined the patient should be discharged home for outpatient follow-up. Physical Exam Vital Signs: Temp Pulse Resp BP Pulse Ox 99.1 F 74 20 170/64 H 93 03/03/18 12:09 03/03/18 14:00 03/03/18 12:09 03/03/18 12:09 03/03/18 12:09 Intake & Output 03/02/18 03/03/18 03/04/18 06:59 06:59 06:59 Intake Total 2700 355 240 Balance 2700 355 240 Weight 64.5 kg 62.4 kg General appearance: PRESENT: no acute distress, cooperative Head exam: PRESENT: atraumatic, normocephalic Eye exam: PRESENT: conjunctiva pink. ABSENT: conjunctival injection Ear exam: PRESENT: normal external ear exam. ABSENT: drainage Mouth exam: PRESENT: moist, tongue midline Neck exam: ABSENT: thyromegaly, tracheal deviation Respiratory exam: PRESENT: clear to auscultation stella, symmetrical, unlabored Cardiovascular exam: PRESENT: RRR. ABSENT: clicks, gallop, rubs Vascular exam: PRESENT: normal capillary refill. ABSENT: pallor GI/Abdominal exam: PRESENT: normal bowel sounds, soft. ABSENT: tenderness Rectal exam: PRESENT: deferred Extremities exam: ABSENT: joint swelling, pedal edema Musculoskeletal exam: PRESENT: full ROM, normal inspection Neurological exam: PRESENT: alert, awake, oriented to person, CN II-XII grossly intact. ABSENT: oriented to place, oriented to time, oriented to situation, motor sensory deficit Psychiatric exam: PRESENT: other - Patient is significantly confused and does not follow commands well and is unable to answer questions meaningfully. Skin exam: ABSENT: jaundice, rash, urticaria Results Laboratory Results: 03/03/18 08:37 03/03/18 08:37 03/03/18 03/03/18 03/03/18 08:37 08:37 09:08 WBC 6.2 RBC 4.83 Hgb 13.6 Hct 41.4 MCV 86 MCH 28.2 MCHC 32.9 RDW 19.6 H Plt Count 322 Seg Neutrophils % 58.3 Lymphocytes % 24.1 Monocytes % 15.5 H Eosinophils % 1.1 Basophils % 1.0 Absolute Neutrophils 3.6 Absolute Lymphocytes 1.5 Absolute Monocytes 1.0 Absolute Eosinophils 0.1 Absolute Basophils 0.1 Sodium 138.3 Potassium 3.4 L Chloride 101 Carbon Dioxide 34 H Anion Gap 3 L BUN 9 Creatinine 0.47 L Est GFR ( Amer) > 60 Est GFR (Non-Af Amer) > 60 Glucose 149 H Calcium 8.8 Total Bilirubin 0.6 AST 204 H ALT 143 H Alkaline Phosphatase 180 H Total Protein 5.6 L Albumin 3.0 L Stool Occult Blood POSITIVE Impressions: Chest X-Ray 03/01/18 02:09 IMPRESSION: 1. No acute pulmonary process identified. Cardiomegaly. Abdomen/Pelvis CT 03/01/18 03:59 IMPRESSION: 1. Mild dilatation of the common bile duct measuring 0.9 cm as well as mild intrahepatic biliary dilatation and mild dilatation of the pancreatic duct. These findings could be related to prior cholecystectomy. If there is concern for biliary obstruction MRCP could provide additional characterization. 2. No peripancreatic inflammatory change. 3. Cardiomegaly with coronary artery atherosclerosis. 4. Diverticulosis without evidence of acute diverticulitis. 5. Cystic structure in the right lumbar paraspinous muscles measuring 2.9 cm. This could represent a synovial cyst. This exam was performed according to our departmental dose-optimization program, which includes automated exposure control, adjustment of the mA and/or kV according to patient size and/or use of iterative reconstruction technique. Qualifiers - * PATIENT BEING DISCHARGED WITH ANY OF THE FOLLOWING DIAGNOSIS: No Plan Discharge Plan: Discharge to home in improved and stable condition. Time Spent: Greater than 30 Minutes
[2018-03-03 15:42] VITALS: BP 149/54
== END 2018-03-03 16:10 | disposition home or self-care (01) | DRG 439 ==
LOC: ER 01:48 → EH 06:00 → 3N 17:48
PROVIDERS: ADMIT Internal Medicine; ATTEND Internal Medicine
DX: K85.90 Acute pancreatitis without necrosis or infection, unspecified (principal); I50.32 Chronic diastolic (congestive) heart failure; Z66 Do not resuscitate; I16.0 Hypertensive urgency; E07.81 Sick-euthyroid syndrome; E03.9 Hypothyroidism, unspecified; I11.0 Hypertensive heart disease with heart failure; E11.8 Type 2 diabetes mellitus with unspecified complications; E78.00 Pure hypercholesterolemia, unspecified; F03.90 Unspecified dementia, unspecified severity, without behavioral disturbance, psychotic disturbance, mood disturbance, and anxiety; Z79.84 Long term (current) use of oral hypoglycemic drugs; Z79.4 Long term (current) use of insulin; Z79.899 Other long term (current) drug therapy
CPT/HCPCS: 36415; 71045; 74177; 80053; 80061; 81001; 82150; 82272; 82962; 83036; 83605; 83690; 84439; 84443; 84481; 84484; 85025; 87040; 87045; 87205; 87493; 93005; 93010; 96361; 96374; 96375; 99285; J0360; J1644; J2270; J2405; J3490

== ENCOUNTER 2018-03-06 20:33 | Emergency (ER) | payer MEDICARE ==
[2018-03-06 20:41] VITALS: BP 155/53
== END 2018-03-06 22:18 | disposition left against medical advice (07) ==
LOC: ER 20:33
DX: Z53.21 Procedure and treatment not carried out due to patient leaving prior to being seen by health care provider (principal)

== ENCOUNTER → 2018-03-11 | Outpatient (CLI) | payer MEDICARE ==
--- NOTE | 2018-03-11 19:30 | RADIOLOGY REPORT (SQ) ---
EXAM DESCRIPTION: HAND LEFT 3 VIEWS COMPLETED DATE/TIME: 03/11/2018 5:56 pm REASON FOR STUDY: R07.81 PLEURODYNIA M9.642 PAIN IN LEFT HAND R07.81 PLEURODYNIA M79.642 PAIN IN L EFT HAND COMPARISON: None. EXAM PARAMETERS: NUMBER OF VIEWS: Three views. TECHNIQUE: AP, lateral and oblique radiographic images acquired of the left hand. LIMITATIONS: None. FINDINGS: MINERALIZATION: Normal. BONES: Fracture of the base of the 5th metacarpal. Degenerative joint changes in the 1st carpometaca rpal joint. There is a small calcification or fragment of bone adjacent to the waist of the navicula r. Cannot entirely exclude a nondisplaced navicular fracture. JOINTS: No effusions. SOFT TISSUES: No soft tissue swelling. No foreign body. OTHER: No other significant finding. IMPRESSION: Fracture at the base of the 5th metacarpal. Cannot exclude fracture of the waist of the navicular. Degenerative joint changes. TECHNICAL DOCUMENTATION: JOB ID: [id number] [employer]- All Rights Reserved Reading location - IP/workstation name: [email or web address]
--- NOTE | 2018-03-11 19:33 | RADIOLOGY REPORT (SQ) ---
EXAM DESCRIPTION: RIBS LEFT W/PA CHEST COMPLETED DATE/TIME: 03/11/2018 5:56 pm REASON FOR STUDY: R07.81 PLEURODYNIA M79.642 PAIN IN LEFT HAND R07.81 PLEURODYNIA M79.642 PAIN IN LEFT HAND COMPARISON: None. TECHNIQUE: Frontal view of the chest and additional views of the left ribs acquired. NUMBER OF VIEWS: Three views LIMITATIONS: None. FINDINGS: FRONTAL CXR: No pneumothorax. No pleural effusion. No atelectasis or infiltrates. RIBS: There are fractures of the left 7th and 8th ribs anteriorly. Possible 9th rib involvement. OTHER: No other significant finding. IMPRESSION: Rib fractures. COMMENT: SITE OF TRAUMA/COMPLAINT MARKED/STAMP COMPLETED: No TECHNICAL DOCUMENTATION: JOB ID: [id number] [employer]- All Rights Reserved Reading location - IP/workstation name: [email or web address]
== END ==
LOC: RAD 17:38
PROVIDERS: ATTEND Physician Assistant
DX: M79.642 Pain in left hand (principal); R07.81 Pleurodynia

== ENCOUNTER → 2018-04-26 | Outpatient (CLI) | payer MEDICARE, OTHER ==
[2018-04-26 14:59] LABS: ABSOLUTE EOSINOPHILS # (AUTO) 0.1 10^3/uL (0.0-0.6); ABSOLUTE LYMPHOCYTES (AUTO) 1.5 10^3/uL (0.5-4.7); ABSOLUTE MONOCYTES (AUTO) 0.5 10^3/uL (0.1-1.4); ABSOLUTE NEUT (AUTO) 2.5 10^3/uL (1.7-8.2); BASOPHILS % (AUTO) 0.6 % (0-2); EOSINOPHILS % (AUTO) 1.4 % (0-6); HEMATOCRIT 37.7 % (36.0-47.0); HEMOGLOBIN 12.8 g/dL (12.0-15.5); LYMPHOCYTES % (AUTO) 32.5 % (13-45); MEAN CORPUSCULAR HEMOGLOBIN 30.7 pg (27.0-33.4); MEAN CORPUSCULAR VOLUME 90 fl (80-97); MONOCYTES % (AUTO) 11.2 % (3-13); PLATELET COUNT 326 10^3/uL (150-450); RED BLOOD COUNT 4.17 10^6/uL (3.72-5.28); RED CELL DISTRIBUTION WIDTH 17.2 % (11.5-14.0); SEGMENTED NEUTROPHILS % (AUTO) 54.3 % (42-78); TOTAL CELLS COUNTED % (AUTO) 100 %; WHITE BLOOD COUNT 4.6 10^3/uL (4.0-10.5)
[2018-04-26 15:15] LABS: ALANINE AMINOTRANSFERASE 32 U/L (9-52); ALBUMIN 3.2 g/dL (3.5-5.0); ALKALINE PHOSPHATASE 177 U/L (38-126); ANION GAP 9 (5-19); ASPARTATE AMINO TRANSFERASE 44 U/L (14-36); BILIRUBIN,DIRECT 0.2 mg/dL (0.0-0.4); BILIRUBIN,TOTAL 0.3 mg/dL (0.2-1.3); BLOOD UREA NITROGEN 10 mg/dL (7-20); CALCIUM 9.4 mg/dL (8.4-10.2); CARBON DIOXIDE 31 mmol/L (22-30); CHLORIDE 102 mmol/L (98-107); GLUCOSE 107 mg/dL (75-110); PHOSPHORUS 4.1 mg/dL (2.5-4.5); POTASSIUM 4.1 mmol/L (3.6-5.0); SODIUM 141.6 mmol/L (137-145); TOTAL PROTEIN 5.7 g/dL (6.3-8.2)
== END ==
LOC: OD 14:15
PROVIDERS: ATTEND Internal Medicine Nephrology
DX: I50.9 Heart failure, unspecified (principal); E11.9 Type 2 diabetes mellitus without complications; I10 Essential (primary) hypertension; R19.7 Diarrhea, unspecified; N39.0 Urinary tract infection, site not specified
CPT/HCPCS: 36415; 80053; 83735; 84100; 85025; 87086; 87088; 87186

== ENCOUNTER 2018-05-18 01:46 | Inpatient (IN) | payer MEDICARE, OTHER ==
--- NOTE | 2018-05-18 01:57 | ER Document Report ---
ED General - General Stated Complaint: SHORTNESS OF BREATH Time Seen by Provider: 05/18/18 01:55 Notes: Patient is a pleasant 88-year-old female who was brought in by ambulance because patient was found to be hypoxic and weak. Patient has been sick for the last several days. She is been more weak than normal according to the patient's . He said that today she developed shortness of breath and difficulty months. When the firefighters arrived there is told the paramedics that she was 66% on room air and therefore they placed her nonrebreather. Paramedics took off the nonrebreather to see what her oxygen would do and her SPO2 went down to 80% therefore they placed her on 6 L nasal cannula and brought her to the ER. Patient denies any recent fevers. She denies any pain at this time. No chest pain or abdominal pain. She had some nausea but no vomiting. She has had recurrent diarrhea the last several days and does have history of C. difficile in the past. says that the patient was recently placed on an antibiotic for UTI. This was started by Dr. Urrutia, her street sprinkler. TRAVEL OUTSIDE OF THE [place] IN LAST 30 DAYS: No - Related Data Allergies/Adverse Reactions: diazepam [From Valium] Allergy (Verified 05/18/18 04:54) Past Medical History - Social History Smoking Status: Unknown if Ever Smoked Frequency of alcohol use: None Drug Abuse: None Family History: CAD, None, Reviewed & Not Pertinent - Past Medical History Cardiac Medical History: Reports: Hx Congestive Heart Failure, Hx Hypercholesterolemia, Hx Hypertension Denies: Hx Coronary Artery Disease, Hx Heart Attack Pulmonary Medical History: Reports: Hx Pneumonia Denies: Hx Asthma, Hx Bronchitis, Hx COPD, Hx Tuberculosis Neurological Medical History: Reports: Hx Cerebrovascular Accident. 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 Denies: Hx Hysterectomy - Immunizations Hx Diphtheria, Pertussis, Tetanus Vaccination: No Hx Pneumococcal Vaccination: 06/14/12 Review of Systems - Review of Systems Notes: My Normal Review Basic REVIEW OF SYSTEMS: CONSTITUTIONAL : Denies fever, chills, or sweats. Generalized weakness EENT: Denies eye, ear, throat, or mouth pain or symptoms. Denies nasal or sinus congestion. CARDIOVASCULAR: Denies chest pain. RESPIRATORY: Breathing starting tonight. GASTROINTESTINAL: Denies abdominal pain. Denies nausea, vomiting, or diarrhea. GENITOURINARY: Some dysuria and recent diagnosis of UTI. MUSCULOSKELETAL: Denies neck or back pain or joint pain or swelling. SKIN: Denies rash or skin lesions. NEUROLOGICAL: Denies altered mental status or loss of consciousness. Denies headache. Denies weakness or paralysis or loss of use of either side. Denies problems with gait or speech. Denies sensory or motor loss. ALL OTHER SYSTEMS REVIEWED AND NEGATIVE. Physical Exam - Vital signs Vitals: Pulse Ox 94 05/18/18 01:49 - Notes Notes: General Appearance: Well nourished, alert, cooperative, no acute distress, moderate obvious discomfort. Vitals: reviewed, See vital signs table. Head: no swelling or tenderness to the head Eyes: PERRL, EOMI, Conjuctiva clear Mouth: No decreasd moisture Throat: No tonsillar inflammation, No airway obstruction, No lymphadenopathy Neck: Supple, no neck tenderness, No thyromegaly Lungs: Rhonchorous breath sounds in the right base. Remainder of lung acosta are clear to auscultation. Mild accessory muscle use. Some tachypnea. Heart: Normal rate, Regular rythm, No murmur, no rub Abdomen: Normal BS, soft, No rigidity, No abdominal tenderness, No guarding, no rebound, no abdominal masses, no organomegaly Extremities: good pulses in all extremities, no swelling or tenderness in the extremities, 1+ bilateral lower extremity edema. Skin: warm, dry, appropriate color, no rash Neuro: speech clear, oriented x 3, normal affect, responds appropriately to questions. Course - Re-evaluation Re-evalutation: 05/18/18 01:57 I suspect patient probably has an underlying pneumonia because she as focal rhoncorous breath sounds in the right base with hypoxemia. She does have some edema in her extremities. We will not do any fluid boluses at this time to see the chest x-ray to confirm that she does not have any type of pulmonary edema associate with this. Currently her blood pressure and heart rate are normal. She is requiring supplemental oxygen. I will place her on BiPAP being that her oxygen saturations anywhere from 88-92% on 6 L nasal cannula. 05/18/18 03:19 Chest x-ray does not show an obvious pneumonia however were here decreased lung sounds and crackles is mainly the right lung base and patient is a large elevated right hemidiaphragm. Patient was recently in the hospital. She does not have a fever or leukocytosis. She does have a UTI on a cath urinalysis. Will start on broad-spectrum antibiotics as she does have returned to suspect she likely will have a pneumonia. Patient does not have a fever white count I will still go forward with CT of the chest to make sure she does not have a PE and also to better evaluate that right lung base. After that patient will be admitted. I did explain this plan to the and he is agreeable to it. 05/18/18 05:46 CTa was negative. I spoke with Dr. Parada, hospitalist, who agreed to evaluate the patient for admission. Dictation of this chart was performed using voice recognition software; therefore, there may be some unintended grammatical errors. - Vital Signs Vital signs: Temp Pulse Resp BP Pulse Ox 98.0 F 18 111/55 L 98 05/18/18 05:05 05/18/18 05:05 05/18/18 05:05 05/18/18 05:05 - Laboratory Result Diagrams: 05/18/18 01:55 05/18/18 01:55 Laboratory results interpreted by me: 05/18/18 05/18/18 05/18/18 01:55 01:55 02:27 RDW 15.8 H Seg Neutrophils % 78.2 H Lymphocytes % 12.2 L Carbon Dioxide 31 H Glucose 152 H AST 46 H Alkaline Phosphatase 136 H Total Protein 5.5 L Albumin 3.1 L Urine Protein 100 H Ur Leukocyte Esterase TRACE H Urine Ascorbic Acid 40 H - EKG Interpretation by Me Additional EKG results interpreted by me: 05/18/18 02:09 EKG is reviewed and interpreted by me. EKG shows sinus rhythm with rate of [address] segment elevation or depression. No ischemic T wave inversions. AL interval, QRS duration are within normal range. QT interval slightly prolonged. Discharge - Discharge Clinical Impression: Hypoxemia Dyspnea Qualifiers: Dyspnea type: unspecified Qualified Code(s): R06.00 - Dyspnea, unspecified UTI (urinary tract infection) Qualifiers: Urinary tract infection type: site unspecified Hematuria presence: without hematuria Qualified Code(s): N39.0 - Urinary tract infection, site not specified Condition: Stable Disposition: ADMITTED INPATIENT Admitting Provider: Hospitalist Unit Admitted: IMCU Referrals: Bartolo URRUTIA MD [Primary Care Provider] - Follow up as needed
[2018-05-18 02:11] LABS: VENOUS BLOOD BASE EXCESS 1.4 mmol/L; VENOUS BLOOD HCO3 27.4 mmol/L (20-32); VENOUS BLOOD PCO2 48.6 mmHg (35-63); VENOUS BLOOD PH 7.37 (7.30-7.42)
[2018-05-18 02:18] LABS: ABSOLUTE EOSINOPHILS # (AUTO) 0.1 10^3/uL (0.0-0.6); ABSOLUTE MONOCYTES (AUTO) 0.7 10^3/uL (0.1-1.4); ABSOLUTE NEUT (AUTO) 6.4 10^3/uL (1.7-8.2); BASOPHILS % (AUTO) 0.5 % (0-2); EOSINOPHILS % (AUTO) 1.2 % (0-6); HEMATOCRIT 36.6 % (36.0-47.0); HEMOGLOBIN 12.1 g/dL (12.0-15.5); LYMPHOCYTES % (AUTO) 12.2 % (13-45); MEAN CORPUSCULAR HEMOGLOBIN 30.9 pg (27.0-33.4); MEAN CORPUSCULAR HGB CONC 33.1 g/dL (32.0-36.0); MEAN CORPUSCULAR VOLUME 93 fl (80-97); MONOCYTES % (AUTO) 7.9 % (3-13); PLATELET COUNT 354 10^3/uL (150-450); RED BLOOD COUNT 3.92 10^6/uL (3.72-5.28); RED CELL DISTRIBUTION WIDTH 15.8 % (11.5-14.0); SEGMENTED NEUTROPHILS % (AUTO) 78.2 % (42-78); TOTAL CELLS COUNTED % (AUTO) 100 %; WHITE BLOOD COUNT 8.2 10^3/uL (4.0-10.5)
[2018-05-18 02:26] LABS: ALANINE AMINOTRANSFERASE 46 U/L (9-52); ALBUMIN 3.1 g/dL (3.5-5.0); ALKALINE PHOSPHATASE 136 U/L (38-126); ANION GAP 8 (5-19); ASPARTATE AMINO TRANSFERASE 46 U/L (14-36); BILIRUBIN,DIRECT 0.2 mg/dL (0.0-0.4); BILIRUBIN,TOTAL 0.6 mg/dL (0.2-1.3); BLOOD UREA NITROGEN 9 mg/dL (7-20); CALCIUM 9.4 mg/dL (8.4-10.2); CARBON DIOXIDE 31 mmol/L (22-30); CHLORIDE 102 mmol/L (98-107); GLUCOSE 152 mg/dL (75-110); SODIUM 141.3 mmol/L (137-145); TOTAL PROTEIN 5.5 g/dL (6.3-8.2)
[2018-05-18 02:58] LABS: APPEARANCE,URINE SLIGHTLY-CLOUDY; BILIRUBIN,URINE NEGATIVE (NEGATIVE); COLOR,URINE YELLOW; GLUCOSE, URINE NEGATIVE (NEGATIVE); KETONES,URINE NEGATIVE (NEGATIVE); LEUKOCYTE ESTERASE,URINE TRACE (NEGATIVE); NITRITE,URINE NEGATIVE (NEGATIVE); PROTEIN,URINE 100 mg/dL (NEGATIVE); URINE SPECIFIC GRAVITY 1.013; UROBILINOGEN,URINE NEGATIVE mg/dL (<2.0)
[2018-05-18] MEDS ORDERED: VANCOMYCIN HCL INJ 1000 MG VIAL IV ONE (03:05)
[2018-05-18] MEDS ORDERED: PIPERACILLIN/TAZOBACTAM 3.375 GM VIAL IV ONE (03:05)
--- NOTE | 2018-05-18 03:10 | RADIOLOGY REPORT (SQ) ---
CLINICAL HISTORY: hypoxia COMPARISON: None. 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 There are mild interstitial changes throughout both lungs. There is no pleural effusion. There is no pneumothorax. There are no acute osseous findings. Right diaphragm is elevated. IMPRESSION: Cardiomegaly with mild interstitial changes throughout both lungs. These could relate to fibrosis or edema.
--- NOTE | 2018-05-18 05:25 | RADIOLOGY REPORT (SQ) ---
CT angiogram chest with contrast on 05/18/2018 at 4:55 AM CLINICAL INDICATION: Hypoxia TECHNIQUE: Multiple axial images are obtained throughout the chest following the administration of IV contrast. Computer generated 3D reconstructions/MIPS were performed. This exam was performed according to our departmental dose-optimization program, which includes automated exposure control, adjustment of the mA and/or kV according to patient size and/or use of iterative reconstruction technique. Total DLP is 668.07 mGy*cm. COMPARISON: 10/08/2017 FINDINGS: There is elevation of the right hemidiaphragm. There is no aortic aneurysm or dissection. Cardiomegaly is noted. There are trace bilateral pleural effusions. The patient is status post cholecystectomy. Limited visualized upper abdomen is otherwise unremarkable. There is no pericardial effusion. There is no thoracic adenopathy. There are no filling defects within the pulmonary arteries to suggest pulmonary embolus. There is evidence of calcified granulomatous disease in the chest. There is anterior to posterior narrowing of the trachea again noted consistent with changes of tracheomalacia. Patchy bilateral groundglass opacities with septal thickening is suggestive of mild edema. There is mild bilateral lower lung atelectasis. No acute bony abnormality is noted. IMPRESSION: 1. No evidence of pulmonary embolus. 2. Findings suggesting mild changes of CHF. 3. Findings suggestive of tracheomalacia.
[2018-05-18] MEDS ORDERED: IPRATROPIUM/ALBUTEROL 0.5-2.5 MG/3 ML AMPUL NEB PRN (05:34)
[2018-05-18] MEDS ORDERED: ACETAMINOPHEN 325 MG TABLET PO PRN (05:34)
[2018-05-18 06:13] LABS: CREATINE KINASE MB 1.45 ng/mL (<4.55); TROPONIN I 0.017 ng/mL
[2018-05-18] MEDS: HEPARIN SOD (PORCINE) 5,000 UNIT/ML 1 ML SYRINGE SUBCUT SCH ×3 (06:39→22:34)
--- NOTE | 2018-05-18 07:39 | PDOC H&P ---
History of Present Illness Admission Date/PCP: 05/18/18 06:33 K Anne DANG MD Patient complains of: Shortness of breath History of Present Illness: SANDY DANG is a 88 year old female with a past medical history of moderate diastolic heart failure, hypertension, dyslipidemia, COPD, diabetes, generalized debility, pancreatitis, remote breast cancer and dementia. She presents with 24 hours of shortness of breath and a nonproductive cough. In the emergency room she is found to have upper airway rhonchi, CTA chest negative for infiltrate, pulmonary emboli but suggestive of congestive heart failure and tracheomalacia. Patient has moderate dementia and is unhelpful as a historian but comfortable on BiPAP. History is obtained by the record 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 Psychiatric Medical History: Reports: Dementia Denies: Depression Hematology: Reports: Anemia Past Surgical History Past Surgical History: Reports: Appendectomy, Cholecystectomy, Mastectomy - right, Other - Unknown Denies: Hysterectomy Social History Information Source: Emergency Med Personnel, [facility] Records Lives with: Family Smoking Status: Unknown if Ever Smoked Frequency of Alcohol Use: None Hx Recreational Drug Use: No Drugs: None Hx Prescription Drug Abuse: No - Advance Directive Resuscitation Status: Full Code Family History Family History: CAD Parental Family History Reviewed: Yes - Unobtainable Children Family History Reviewed: Yes - Unobtainable Sibling(s) Family History Reviewed.: Yes Medication/Allergy Home Medications: Aspirin [Aspirin EC] 81 mg PO QHS 03/01/18 Atorvastatin Calcium [Lipitor 20 mg Tablet] 20 mg PO QHS 03/01/18 Carvedilol [Coreg 12.5 mg Tablet] 12.5 mg PO Q12 03/01/18 Eplerenone [Inspra] 50 mg PO DAILY 03/01/18 Escitalopram Oxalate [Lexapro] 20 mg PO QPM 03/01/18 Amlodipine Besylate [Norvasc 10 mg Tablet] 10 mg PO QHS 30 Days #30 tablet 03/03 Docusate Sodium [Colace 100 mg Capsule] 100 mg PO DAILY 30 Days #30 capsule Allergies/Adverse Reactions: diazepam [From Valium] Allergy (Verified 05/18/18 04:54) Review of Systems ROS unobtainable: Due to mental status Physical Exam Vital Signs: Temp Pulse Resp BP Pulse Ox 97.4 F 14 116/60 92 05/18/18 06:01 05/18/18 06:01 05/18/18 06:00 05/18/18 06:01 General appearance: PRESENT: cooperative, hard of hearing, mild distress Head exam: PRESENT: atraumatic, normocephalic Eye exam: PRESENT: conjunctiva pink, EOMI, PERRLA. ABSENT: scleral icterus Ear exam: PRESENT: normal external ear exam Mouth exam: PRESENT: moist, tongue midline Neck exam: ABSENT: carotid bruit, JVD, lymphadenopathy, thyromegaly Respiratory exam: PRESENT: accessory muscle use, crackles, rales, rhonchi, tachypnea. ABSENT: chest wall tenderness Cardiovascular exam: PRESENT: RRR. ABSENT: diastolic murmur, rubs, systolic murmur Pulses: PRESENT: normal dorsalis pedis pul Vascular exam: PRESENT: normal capillary refill GI/Abdominal exam: PRESENT: normal bowel sounds, soft. ABSENT: distended, guarding, mass, organolmegaly, rebound, tenderness Rectal exam: PRESENT: deferred Extremities exam: PRESENT: full ROM. ABSENT: calf tenderness, clubbing, pedal edema Neurological exam: PRESENT: alert, altered, oriented to person, CN II-XII grossly intact. ABSENT: oriented to place, oriented to time, oriented to situation Psychiatric exam: PRESENT: appropriate affect, normal mood. ABSENT: homicidal ideation, suicidal ideation Skin exam: PRESENT: dry, intact, warm. ABSENT: cyanosis, rash Results Impressions: Chest X-Ray 05/18/18 01:55 IMPRESSION: Cardiomegaly with mild interstitial changes throughout both lungs. These could relate to fibrosis or edema. Chest/Abdomen CTA 05/18/18 03:17 IMPRESSION: 1. No evidence of pulmonary embolus. 2. Findings suggesting mild changes of CHF. 3. Findings suggestive of tracheomalacia. Assessment & Plan - Diagnosis (1) Hypoxemia Is this a current diagnosis for this admission?: Yes Plan: Likely multifactorial secondary to tracheomalacia, COPD and congestive heart failure exacerbation. Supplemental oxygen, BiPAP and supportive care. (2) Dyspnea Qualifiers: Dyspnea type: unspecified Qualified Code(s): R06.00 - Dyspnea, unspecified Is this a current diagnosis for this admission?: Yes Plan: Supplemental oxygen, consider hospice or palliative care given advanced comorbidities (3) Acute exacerbation of congestive heart failure Qualifiers: Is this a current diagnosis for this admission?: Yes Plan: Follow-up BNP, fluid restriction, trial of IV Lasix. - Time Time Spent: 50 to 70 Minutes - Inpatient Certification Medical Necessity: Need Close Monitoring Due to Risk of Patient Decompensation
[2018-05-18] MEDS ORDERED: LEVOFLOXACIN 750 MG/D5W RTU 750 MG/150 ML RTUPB IV SCH (08:00)
[2018-05-18] MEDS: IPRATROPIUM/ALBUTEROL 0.5-2.5 MG/3 ML AMPUL NEB SCH ×2 (08:32→16:58)
[2018-05-18] MEDS: FUROSEMIDE INJ/PF 40 MG/4 ML SDV IV SCH ×2 (08:47→22:31)
[2018-05-18 08:56] LABS: CREATINE KINASE MB 1.03 ng/mL (<4.55)
[2018-05-18 09:02] LABS: TROPONIN I < 0.012 ng/mL
[2018-05-18] MEDS: EPLERENONE 25 MG TABLET PO SCH (12:00)
[2018-05-18] MEDS: CARVEDILOL 12.5 MG TABLET PO SCH ×2 (12:01→22:32)
--- NOTE | 2018-05-18 12:01 | EKG REPORT ---
SEVERITY:- ABNORMAL ECG - SINUS RHYTHM INCOMPLETE RIGHT BUNDLE BRANCH BLOCK CONSIDER ANTERIOR INFARCT : Confirmed by: Roel Cordero 18-May-2018 12:00:36
[2018-05-18] MEDS: DOCUSATE SODIUM 100 MG CAPSULE PO SCH (12:02)
[2018-05-18 15:44] LABS: CREATINE KINASE MB 1.16 ng/mL (<4.55)
[2018-05-18 15:48] LABS: TROPONIN I < 0.012 ng/mL
[2018-05-18] MEDS: ESCITALOPRAM OXALATE 10 MG TABLET PO SCH (20:11)
[2018-05-18] MEDS: ATORVASTATIN CALCIUM 20 MG TABLET PO SCH (22:32)
[2018-05-18] MEDS: ASPIRIN 81 MG TABLET, ENT COATED PO SCH (22:32)
[2018-05-19] MEDS: IPRATROPIUM/ALBUTEROL 0.5-2.5 MG/3 ML AMPUL NEB SCH ×4 (00:25→23:51)
[2018-05-19] MEDS ORDERED: HYDRALAZINE HCL INJ/PF 20 MG/1 ML SDV IV PRN (03:42)
[2018-05-19] MEDS: HEPARIN SOD (PORCINE) 5,000 UNIT/ML 1 ML SYRINGE SUBCUT SCH ×3 (06:27→23:37)
[2018-05-19 07:02] LABS: ABSOLUTE BASOPHILS # (AUTO) 0.1 10^3/uL (0.0-0.2); ABSOLUTE EOSINOPHILS # (AUTO) 0.1 10^3/uL (0.0-0.6); ABSOLUTE LYMPHOCYTES (AUTO) 1.3 10^3/uL (0.5-4.7); ABSOLUTE MONOCYTES (AUTO) 0.9 10^3/uL (0.1-1.4); ABSOLUTE NEUT (AUTO) 5.5 10^3/uL (1.7-8.2); BASOPHILS % (AUTO) 0.9 % (0-2); HEMOGLOBIN 12.3 g/dL (12.0-15.5); LYMPHOCYTES % (AUTO) 16.3 % (13-45); MEAN CORPUSCULAR HEMOGLOBIN 31.4 pg (27.0-33.4); MEAN CORPUSCULAR HGB CONC 34.1 g/dL (32.0-36.0); MEAN CORPUSCULAR VOLUME 92 fl (80-97); PLATELET COUNT 373 10^3/uL (150-450); RED BLOOD COUNT 3.91 10^6/uL (3.72-5.28); RED CELL DISTRIBUTION WIDTH 15.2 % (11.5-14.0); SEGMENTED NEUTROPHILS % (AUTO) 69.8 % (42-78); TOTAL CELLS COUNTED % (AUTO) 100 %; WHITE BLOOD COUNT 7.8 10^3/uL (4.0-10.5)
[2018-05-19 07:24] LABS: BLOOD UREA NITROGEN 8 mg/dL (7-20); CALCIUM 8.5 mg/dL (8.4-10.2); CHLORIDE 96 mmol/L (98-107); GLUCOSE 127 mg/dL (75-110); POTASSIUM 3.3 mmol/L (3.6-5.0); SODIUM 141.4 mmol/L (137-145)
[2018-05-19 07:38] LABS: ANION GAP 7 (5-19)
[2018-05-19 07:44] LABS: CARBON DIOXIDE 38 mmol/L (22-30)
[2018-05-19] MEDS: DOCUSATE SODIUM 100 MG CAPSULE PO SCH (11:09)
[2018-05-19] MEDS: EPLERENONE 25 MG TABLET PO SCH (11:22)
[2018-05-19] MEDS: CARVEDILOL 12.5 MG TABLET PO SCH ×2 (11:22→23:37)
[2018-05-19] MEDS: FUROSEMIDE INJ/PF 40 MG/4 ML SDV IV SCH (11:23)
[2018-05-19] MEDS ORDERED: POTASSIUM CHLORIDE 10 MEQ CAPSULE.ER PO ONE ×3 (12:00→23:59)
[2018-05-19] MEDS: VANCOMYCIN HCL INJ 500 MG VIAL PO SCH ×3 (13:13→23:37)
[2018-05-19 14:56] LABS: INTERNATIONAL RATION (INR) 0.95; PROTHROMBIN TIME 13.2 SEC (11.4-15.4)
[2018-05-19 14:57] LABS: PARTIAL THROMBOPLASTIN TIME 27.8 SEC (23.5-35.8)
--- NOTE | 2018-05-19 17:28 | PDOC PROGRESS REPORT ---
Subjective Progress Note for:: 05/19/18 Subjective:: MS. DANG is a 88 year old female with a past medical history of moderate diastolic heart failure, hypertension, dyslipidemia, COPD, diabetes, generalized debility, pancreatitis, remote breast cancer and dementia who presented with increasing shortness of breath and nonproductive cough. Chest CT showed congestive changes. Patient was admitted for CHF exacerbation. Patient reportedly had an episode of watery stools overnight. C. difficile testing was sent and came back positive. Per RN, patient's stool this morning was better formed and more chunky. Patient says her breathing has improved from yesterday. He does not appear to be in distress. She currently denies chest pain. Reason For Visit: PNEUMONIA Physical Exam Vital Signs: Temp Pulse Resp BP Pulse Ox 98.3 F 74 20 150/68 H 96 05/19/18 14:00 05/19/18 14:00 05/19/18 14:00 05/19/18 14:00 05/19/18 14:00 Intake & Output 05/18/18 05/19/18 05/20/18 06:59 06:59 06:59 Intake Total 828 Output Total 900 Balance -72 Weight 151 lb 10.848 oz General appearance: PRESENT: no acute distress, well-developed, well-nourished Head exam: PRESENT: atraumatic, normocephalic Eye exam: PRESENT: conjunctiva pink, EOMI, PERRLA. ABSENT: scleral icterus Ear exam: PRESENT: normal external ear exam Mouth exam: PRESENT: moist, tongue midline Neck exam: ABSENT: carotid bruit, JVD, lymphadenopathy, thyromegaly Respiratory exam: PRESENT: clear to auscultation stella, rhonchi - Occasional rhonchi. ABSENT: rales, wheezes Cardiovascular exam: PRESENT: RRR. ABSENT: diastolic murmur, rubs, systolic murmur Pulses: PRESENT: normal dorsalis pedis pul GI/Abdominal exam: PRESENT: normal bowel sounds, soft. ABSENT: distended, guarding, mass, organolmegaly, rebound, tenderness Rectal exam: PRESENT: deferred Neurological exam: PRESENT: alert, awake, oriented to person, CN II-XII grossly intact. ABSENT: motor sensory deficit Results Laboratory Results: 05/19/18 06:41 05/19/18 06:41 05/19/18 05/19/18 06:41 06:41 WBC 7.8 RBC 3.91 Hgb 12.3 Hct 36.0 MCV 92 MCH 31.4 MCHC 34.1 RDW 15.2 H Plt Count 373 Seg Neutrophils % 69.8 Lymphocytes % 16.3 Monocytes % 12.0 Eosinophils % 1.0 Basophils % 0.9 Absolute Neutrophils 5.5 Absolute Lymphocytes 1.3 Absolute Monocytes 0.9 Absolute Eosinophils 0.1 Absolute Basophils 0.1 Sodium 141.4 Potassium 3.3 L Chloride 96 L Carbon Dioxide 38 H Anion Gap 7 BUN 8 Creatinine 0.58 Est GFR ( Amer) > 60 Est GFR (Non-Af Amer) > 60 Glucose 127 H Calcium 8.5 05/18/18 05/18/18 05/18/18 08:04 08:04 15:04 Creatine Kinase < 20 L 31 CK-MB (CK-2) 1.03 Troponin I < 0.012 05/18/18 15:04 Creatine Kinase CK-MB (CK-2) 1.16 Troponin I < 0.012 Impressions: Chest X-Ray 05/18/18 01:55 IMPRESSION: Cardiomegaly with mild interstitial changes throughout both lungs. These could relate to fibrosis or edema. Chest/Abdomen CTA 05/18/18 03:17 IMPRESSION: 1. No evidence of pulmonary embolus. 2. Findings suggesting mild changes of CHF. 3. Findings suggestive of tracheomalacia. Assessment & Plan - Diagnosis (1) Acute on chronic diastolic CHF (congestive heart failure) Is this a current diagnosis for this admission?: Yes Plan: Patient was started on Lasix IV 40 mg every 12. She does appear to have significantly improved. Will decrease Lasix to 40 mg daily. Continue I&O's. Continue fluid restriction. Coreg resumed. Continue eplerenone. Recent echo showed normal EF with grade 2 diastolic dysfunction. (2) C. difficile diarrhea Is this a current diagnosis for this admission?: Yes Plan: Appears to have improved. Per RN, patient's stool this morning was better formed and more chunky. Oral vancomycin started. (3) Hypokalemia Is this a current diagnosis for this admission?: Yes Plan: Likely secondary to diuretics. Ordered oral replacement. Lasix dose reduced today. Will repeat BMP tomorrow. (4) Pyuria Is this a current diagnosis for this admission?: Yes Plan: Patient denies lower urinary tract symptoms. Will not treat pyuria at this time especially in the setting of C. difficile diarrhea. - Time Time Spent with patient: 25-34 minutes
[2018-05-19] MEDS: ESCITALOPRAM OXALATE 10 MG TABLET PO SCH (18:41)
[2018-05-19] MEDS: ATORVASTATIN CALCIUM 20 MG TABLET PO SCH (23:37)
[2018-05-19] MEDS: ASPIRIN 81 MG TABLET, ENT COATED PO SCH (23:37)
[2018-05-20] MEDS: VANCOMYCIN HCL INJ 500 MG VIAL PO SCH ×2 (06:23→12:19)
[2018-05-20] MEDS: HEPARIN SOD (PORCINE) 5,000 UNIT/ML 1 ML SYRINGE SUBCUT SCH ×2 (06:23→15:00)
[2018-05-20 07:02] LABS: ANION GAP 9 (5-19); BLOOD UREA NITROGEN 16 mg/dL (7-20); CALCIUM 8.8 mg/dL (8.4-10.2); CARBON DIOXIDE 35 mmol/L (22-30); CHLORIDE 96 mmol/L (98-107); GLUCOSE 151 mg/dL (75-110); SODIUM 140.3 mmol/L (137-145)
[2018-05-20 07:10] LABS: POTASSIUM 4.6 mmol/L (3.6-5.0)
[2018-05-20] MEDS: IPRATROPIUM/ALBUTEROL 0.5-2.5 MG/3 ML AMPUL NEB SCH ×2 (07:58→15:56)
[2018-05-20] MEDS: DOCUSATE SODIUM 100 MG CAPSULE PO SCH (09:24)
[2018-05-20] MEDS: EPLERENONE 25 MG TABLET PO SCH (09:28)
[2018-05-20] MEDS: CARVEDILOL 12.5 MG TABLET PO SCH (09:28)
[2018-05-20] MEDS ORDERED: FUROSEMIDE INJ/PF 40 MG/4 ML SDV IV SCH (10:00)
[2018-05-20 16:07] VITALS: BP 148/89
--- NOTE | 2018-05-22 18:52 | PDOC DISCHARGE SUMMARY ---
General - Admit/Disc Date/PCP Admission Date/Primary Care Provider: 05/18/18 06:33 K Anne DANG MD Discharge Date: 05/20/18 - Discharge Diagnosis (1) Acute on chronic diastolic CHF (congestive heart failure) Is this a current diagnosis for this admission?: Yes (2) C. difficile diarrhea Is this a current diagnosis for this admission?: Yes (3) Hypokalemia Is this a current diagnosis for this admission?: Yes (4) Pyuria Is this a current diagnosis for this admission?: Yes - Additional Information Resuscitation Status: Full Code Discharge Diet: As Tolerated Discharge Activity: Activity As Tolerated, Balance Activity w/Rest Prescriptions: Vancomycin HCl [Vancocin Inj 500 mg Vial] 250 mg PO Q6 10 Days #20 vial Home Medications: Aspirin [Aspirin EC] 81 mg PO QHS 03/01/18 Atorvastatin Calcium [Lipitor 20 mg Tablet] 20 mg PO QHS 03/01/18 Carvedilol [Coreg 12.5 mg Tablet] 12.5 mg PO Q12 03/01/18 Eplerenone [Inspra] 50 mg PO DAILY 03/01/18 Escitalopram Oxalate [Lexapro] 20 mg PO QPM 03/01/18 Anastrozole [Arimidex 1 mg Tablet] 1 mg PO DAILY 05/18/18 Calcium Carbonate/Vitamin D3 [Oyster Shell 500-Vit D3 200 Tb] 1 each PO DAILY Clonidine HCl [Catapres] 0.1 mg PO DAILY 05/18/18 Donepezil HCl [Aricept] 10 mg PO QPM 05/18/18 Furosemide [Lasix 20 mg Tablet] 20 mg PO QAM 05/18/18 Hydralazine HCl [Apresoline 25 mg Tablet] 50 mg PO TID 05/18/18 Levothyroxine Sodium [Synthroid 0.15 mg Tablet] 0.15 mg PO DAILY 05/18/18 Losartan Potassium [Cozaar 100 mg Tablet] 100 mg PO QHS 05/18/18 Magnesium Oxide [Mag-Ox 400 mg Tablet] 400 mg PO DAILY 05/18/18 Metformin HCl 500 mg PO BID 05/18/18 Nifedipine [Nifedipine ER] 60 mg PO QHS 05/18/18 Omeprazole Magnesium [Prilosec Otc] 20 mg PO QHS 05/18/18 Ropinirole HCl [Requip] 2 mg PO BID 05/18/18 Acetaminophen [Tylenol 325 mg Tablet] 650 mg PO Q4HP PRN tablet 05/20/18 Docusate Sodium [Colace 100 mg Capsule] 100 mg PO DAILY capsule 05/20/18 Vancomycin HCl [Vancocin Inj 500 mg Vial] 250 mg PO Q6 10 Days #20 vial History of Present Illness Patient complains of: SOB History of Present Illness: Admitting hospitalist's H&P: SANDY DANG is a 88 year old female with a past medical history of moderate diastolic heart failure, hypertension, dyslipidemia, COPD, diabetes, generalized debility, pancreatitis, remote breast cancer and dementia. She presents with 24 hours of shortness of breath and a nonproductive cough. In the emergency room she is found to have upper airway rhonchi, CTA chest negative for infiltrate, pulmonary emboli but suggestive of congestive heart failure and tracheomalacia. Patient has moderate dementia and is unhelpful as a historian but comfortable on BiPAP. History is obtained by the record. Hospital Course Hospital Course: MS. DANG is a 88 year old female with a past medical history of moderate diastolic heart failure, hypertension, dyslipidemia, COPD, diabetes, generalized debility, pancreatitis, remote breast cancer and dementia who presented with increasing shortness of breath and nonproductive cough. Chest CT showed congestive changes. Patient was admitted for CHF exacerbation. She was started on IV Lasix. She had a few episodes of loose stools which did resolve. C. difficile testing was sent and came back positive. Patient did significantly improve. Her lung sounds also improved and she had clear breath sounds on day of discharge. Her stools are also became more well formed. She will be sent back on her and will be sent on a prescription for 10- day course of oral vancomycin as well. Physical Exam Vital Signs: Temp Pulse Resp BP Pulse Ox 98.9 F 72 20 148/89 H 99 05/20/18 15:59 05/20/18 15:59 05/20/18 15:59 05/20/18 15:59 05/20/18 15:59 General appearance: PRESENT: no acute distress, well-developed, well-nourished Head exam: PRESENT: atraumatic, normocephalic Eye exam: PRESENT: conjunctiva pink, EOMI, PERRLA. ABSENT: scleral icterus Ear exam: PRESENT: normal external ear exam Mouth exam: PRESENT: moist, tongue midline Neck exam: ABSENT: carotid bruit, JVD, lymphadenopathy, thyromegaly Respiratory exam: PRESENT: clear to auscultation stella. ABSENT: rales, rhonchi, wheezes Cardiovascular exam: PRESENT: RRR. ABSENT: diastolic murmur, rubs, systolic murmur Pulses: PRESENT: normal dorsalis pedis pul GI/Abdominal exam: PRESENT: normal bowel sounds, soft. ABSENT: distended, guarding, mass, organolmegaly, rebound, tenderness Rectal exam: PRESENT: deferred Neurological exam: PRESENT: alert, awake, oriented to person, oriented to place Results Laboratory Results: 05/19/18 06:41 05/20/18 06:18 05/18/18 05/18/18 05/18/18 08:04 08:04 15:04 Creatine Kinase < 20 L 31 CK-MB (CK-2) 1.03 Troponin I < 0.012 05/18/18 15:04 Creatine Kinase CK-MB (CK-2) 1.16 Troponin I < 0.012 Impressions: Chest X-Ray 05/18/18 01:55 IMPRESSION: Cardiomegaly with mild interstitial changes throughout both lungs. These could relate to fibrosis or edema. Chest/Abdomen CTA 05/18/18 03:17 IMPRESSION: 1. No evidence of pulmonary embolus. 2. Findings suggesting mild changes of CHF. 3. Findings suggestive of tracheomalacia. Qualifiers - * PATIENT BEING DISCHARGED WITH ANY OF THE FOLLOWING DIAGNOSIS: No
== END 2018-05-20 16:20 | disposition home or self-care (01) | DRG 292 ==
LOC: ER 01:46 → EH 06:33 → 5 19:28
PROVIDERS: ADMIT Internal Medicine; ATTEND Internal Medicine
DX: I11.0 Hypertensive heart disease with heart failure (principal); A04.72 Enterocolitis due to Clostridium difficile, not specified as recurrent; N39.0 Urinary tract infection, site not specified; I50.33 Acute on chronic diastolic (congestive) heart failure; E78.5 Hyperlipidemia, unspecified; J44.9 Chronic obstructive pulmonary disease, unspecified; E11.9 Type 2 diabetes mellitus without complications; J39.8 Other specified diseases of upper respiratory tract; F03.90 Unspecified dementia, unspecified severity, without behavioral disturbance, psychotic disturbance, mood disturbance, and anxiety; E87.6 Hypokalemia; Z85.3 Personal history of malignant neoplasm of breast; E03.9 Hypothyroidism, unspecified; M47.812 Spondylosis without myelopathy or radiculopathy, cervical region; Z79.899 Other long term (current) drug therapy; Z79.84 Long term (current) use of oral hypoglycemic drugs; Z82.49 Family history of ischemic heart disease and other diseases of the circulatory system; Z79.82 Long term (current) use of aspirin; Z88.8 Allergy status to other drugs, medicaments and biological substances; Z23 Encounter for immunization
CPT/HCPCS: 36415; 51702; 71045; 71275; 80048; 80053; 81001; 82550; 82553; 82803; 83605; 83690; 83880; 84443; 84484; 85025; 85610; 85730; 87040; 87493; 90471; 90686; 93005; 93010; 94640; 94660; 96365; 96366; 96367; 99285; G0008; J0360; J1644; J1940; J2543; J3370; J3490; J7620

== ENCOUNTER → 2018-05-27 | Outpatient (CLI) | payer MEDICARE, OTHER ==
[2018-05-27 15:43] LABS: ANION GAP 7 (5-19); BLOOD UREA NITROGEN 10 mg/dL (7-20); CALCIUM 9.6 mg/dL (8.4-10.2); CARBON DIOXIDE 28 mmol/L (22-30); CHLORIDE 102 mmol/L (98-107); GLUCOSE 126 mg/dL (75-110); POTASSIUM 4.2 mmol/L (3.6-5.0); SODIUM 137.4 mmol/L (137-145)
== END ==
LOC: OD 14:40
PROVIDERS: ATTEND Internal Medicine Nephrology
DX: I11.0 Hypertensive heart disease with heart failure (principal); I50.9 Heart failure, unspecified; E83.42 Hypomagnesemia
CPT/HCPCS: 36415; 80048; 83735

== ENCOUNTER 2018-07-07 12:58 | Inpatient (IN) | payer MEDICARE, OTHER ==
[2018-07-07] MEDS ORDERED: METHYLPREDNISOLONE INJ 125 MG/2 ML SDV IV ONE (13:22)
[2018-07-07] MEDS ORDERED: IPRATROPIUM/ALBUTEROL 0.5-2.5 MG/3 ML AMPUL NEB ONE (13:22)
[2018-07-07] MEDS ORDERED: ALBUTEROL SULFATE 0.083% NEB 2.5 MG/3 ML AMPUL NEB ONE (13:22)
--- NOTE | 2018-07-07 13:29 | ER Document Report ---
ED General - General Chief Complaint: Respiratory Distress Stated Complaint: DIFFICULTY BREATHING Time Seen by Provider: 07/07/18 13:16 Primary Care Provider: Bartolo DANG MD [Primary Care Provider] - Follow up as needed TRAVEL OUTSIDE OF THE [place] IN LAST 30 DAYS: No - HPI Notes: Patient is a 88-year-old female that presents to the emergency department for chief complaint of shortness of breath. Patient presented by EMS for shortness of breath. She called EMS from home and told them she had been feeling more short of breath for a while. EMS states when they found her she was tripoding with a respiratory rate of 35. They state her oxygen was 74% on room air. Patient was started on CPAP and transferred to the emergency room. Patient is currently somnolent which limits HPI. She denies any chest pain to me. She states her shortness of breath has been getting worse for a while. She does not know if she has congestive heart failure or COPD. She also is not sure if she wears home oxygen Past Medical History: COPD, CHF, diabetes, hypertension, hypothyroidism, breast cancer Past Surgical History: Reviewed in chart Social History: Reviewed in chart Family History: Reviewed and noncontributory for presenting illness Allergies: Reviewed, see documented allergy list. REVIEW OF SYSTEMS: CONSTITUTIONAL : No fever No chills No diaphoresis No recent illness EENT: No vision changes No congestion No sore throat CARDIOVASCULAR: No chest pain No palpitations RESPIRATORY: shortness of breath No cough difficulty breathing GASTROINTESTINAL: No abdominal pain No nausea No vomiting No diarrhea GENITOURINARY: No dysuria No hematuria No difficulty urinating MUSCULOSKELETAL: No back pain No leg pain No arm pain SKIN: No rashes No lesions LYMPHATIC: No swollen, enlarged glands. NEUROLOGICAL: No lightheadedness No headache No weakness No paresthesias PSYCHIATRIC: No anxiety No depression PHYSICAL EXAMINATION: Vital signs reviewed, nursing noted reviewed. GENERAL: Somnolent, obese, moderate distress HEAD: Atraumatic, normocephalic. EYES: Eyes appear normal, extraocular movements intact, sclera anicteric, conjunctiva are normal. ENT: nares patent, oropharynx clear without exudates. Moist mucous membranes. NECK: Normal range of motion, supple without lymphadenopathy LUNGS: Breath sounds diminished with wheezing diffusely. Tachypneic. HEART: Tachycardic rate and regular rhythm without murmurs ABDOMEN: Soft, nontender, normoactive bowel sounds. No rebound, guarding, or rigidity. No masses appreciated. EXTREMITIES: Nontender, good range of motion, trace pretibial edema bilaterally NEUROLOGICAL: No focal neurological deficits. Moves all extremities spontaneously Motor and sensory grossly intact on exam. PSYCH: Normal mood, normal affect. SKIN: Warm, Dry, normal turgor, no rashes or lesions noted on exposed skin - Related Data Allergies/Adverse Reactions: diazepam [From Valium] Allergy (Verified 05/18/18 04:54) Past Medical History - Social History Smoking Status: Unknown if Ever Smoked Family History: CAD Patient has suicidal ideation: No Patient has homicidal ideation: No - Past Medical History Cardiac Medical History: Reports: Hx Congestive Heart Failure, Hx Hypercholesterolemia, Hx Hypertension Denies: Hx Coronary Artery Disease, Hx Heart Attack Pulmonary Medical History: Reports: Hx Pneumonia Denies: Hx Asthma, Hx Bronchitis, Hx COPD, Hx Tuberculosis Neurological Medical History: Reports: Hx Cerebrovascular Accident. 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 Denies: Hx Hysterectomy - Immunizations Hx Diphtheria, Pertussis, Tetanus Vaccination: No Hx Pneumococcal Vaccination: 06/14/12 Physical Exam - Vital signs Vitals: Resp Pulse Ox 19 97 07/07/18 13:00 07/07/18 13:00 Course - Re-evaluation Re-evalutation: 07/07/18 13:25 Vitals reviewed. Nursing notes reviewed. Patient presented on CPAP and was transitioned to BiPAP in the ED. When she got on BiPAP she did calm way down and is now somnolent and falling asleep during her conversation. She does wake with minor verbal stimuli. 07/07/18 14:54 Patient reevaluated and is resting comfortably on the BiPAP. She is markedly improved from time of arrival in the emergency room. Her ABG shows no hypercapn ia with a normal pH. Chest x-ray shows some pulmonary vascular congestion and she was given a dose of Lasix for CHF exacerbation. The remainder of her workup is unremarkable. She will be admitted to the hospital for her respiratory failure. Case discussed with Dr. Mcclain who accepts admission. Laboratory 07/07/18 07/07/18 07/07/18 12:44 12:44 12:44 WBC 6.2 RBC 3.73 Hgb 11.8 L Hct 34.6 L MCV 93 MCH 31.6 MCHC 34.0 RDW 14.8 H Plt Count 394 Seg Neutrophils % 71.5 Lymphocytes % 16.1 Monocytes % 10.9 Eosinophils % 0.8 Basophils % 0.7 Absolute Neutrophils 4.4 Absolute Lymphocytes 1.0 Absolute Monocytes 0.7 Absolute Eosinophils 0.0 Absolute Basophils 0.0 Carbonic Acid HCO3/H2CO3 Ratio ABG pH ABG pCO2 ABG pO2 ABG HCO3 ABG Total CO2 ABG O2 Saturation ABG Base Excess FiO2 Sodium 138.8 Potassium 3.5 L Chloride 100 Carbon Dioxide 32 H Anion Gap 7 BUN 11 Creatinine 0.53 Est GFR ( Amer) > 60 Est GFR (Non-Af Amer) > 60 Glucose 151 H Calcium 9.3 Total Bilirubin 0.4 Direct Bilirubin 0.1 Neonat Total Bilirubin Not Reportable Neonat Direct Bilirubin Not Reportable Neonat Indirect Bili Not Reportable AST 40 H ALT 32 Alkaline Phosphatase 101 Troponin I < 0.012 Total Protein 6.6 Albumin 3.9 07/07/18 13:48 WBC RBC Hgb Hct MCV MCH MCHC RDW Plt Count Seg Neutrophils % Lymphocytes % Monocytes % Eosinophils % Basophils % Absolute Neutrophils Absolute Lymphocytes Absolute Monocytes Absolute Eosinophils Absolute Basophils Carbonic Acid 1.29 HCO3/H2CO3 Ratio 20:1 ABG pH 7.41 ABG pCO2 42.9 ABG pO2 83.6 ABG HCO3 26.7 H ABG Total CO2 28.0 H ABG O2 Saturation 96.3 ABG Base Excess 1.8 FiO2 40 Sodium Potassium Chloride Carbon Dioxide Anion Gap BUN Creatinine Est GFR ( Amer) Est GFR (Non-Af Amer) Glucose Calcium Total Bilirubin Direct Bilirubin Neonat Total Bilirubin Neonat Direct Bilirubin Neonat Indirect Bili AST ALT Alkaline Phosphatase Troponin I Total Protein Albumin Chest X-Ray 07/07/18 13:16 IMPRESSION: Cardiomegaly. Cannot exclude mild pulmonary edema. - Vital Signs Vital signs: Temp Pulse Resp BP Pulse Ox 97.7 F 66 18 154/59 H 97 07/07/18 13:15 07/07/18 13:15 07/07/18 13:15 07/07/18 13:15 07/07/18 13:00 - Laboratory Result Diagrams: 07/07/18 12:44 07/07/18 12:44 Laboratory results interpreted by me: 07/07/18 07/07/18 07/07/18 12:44 12:44 13:48 Hgb 11.8 L Hct 34.6 L RDW 14.8 H ABG HCO3 26.7 H ABG Total CO2 28.0 H Potassium 3.5 L Carbon Dioxide 32 H Glucose 151 H AST 40 H - EKG Interpretation by Me Additional EKG results interpreted by me: 07/07/18 13:28 Interpreted by myself 06/16/2002: Normal sinus rhythm, rate 75, incomplete right bundle branch block, normal axis, no significant change from 05/18/18 Critical Care Note - Critical Care Note Total time excluding time spent on procedures (mins): 35 Comments: 35 Minutes of critical care time spent in direct contact evaluating and reevaluating the patient, treating symptoms, reviewing labs and studies and speaking with family and consultants excluding any procedures. Patient in respiratory distress requiring stabilization, potential for respiratory decompensation Discharge - Discharge Clinical Impression: Respiratory distress, COPD exacerbation CHF exacerbation Qualifiers: Heart failure type: unspecified Qualified Code(s): I50.9 - Heart failure, unspecified Pulmonary edema Qualifiers: Chronicity: acute Qualified Code(s): J81.0 - Acute pulmonary edema Condition: Stable Disposition: ADMITTED INPATIENT Admitting Provider: Hospitalist Unit Admitted: IMCU Referrals: Bartolo DANG MD [Primary Care Provider] - Follow up as needed
[2018-07-07 14:07] LABS: ARTERIAL BLOOD BASE EXCESS 1.8 mmol/L; ARTERIAL BLOOD H2CO3 1.29 mmol/L (1.05-1.35); ARTERIAL BLOOD HCO3 26.7 mmol/L (20-24); ARTERIAL BLOOD O2 SATURATION 96.3 % (94-98); ARTERIAL BLOOD PCO2 42.9 mmHg (35-45); ARTERIAL BLOOD PH 7.41 (7.35-7.45); ARTERIAL BLOOD PO2 83.6 mmHg (80-100)
[2018-07-07 14:08] LABS: ARTERIAL BLOOD FIO2 40
[2018-07-07 14:08] LABS: ABSOLUTE MONOCYTES (AUTO) 0.7 10^3/uL (0.1-1.4); ABSOLUTE NEUT (AUTO) 4.4 10^3/uL (1.7-8.2); BASOPHILS % (AUTO) 0.7 % (0-2); EOSINOPHILS % (AUTO) 0.8 % (0-6); HEMATOCRIT 34.6 % (36.0-47.0); HEMOGLOBIN 11.8 g/dL (12.0-15.5); LYMPHOCYTES % (AUTO) 16.1 % (13-45); MEAN CORPUSCULAR HEMOGLOBIN 31.6 pg (27.0-33.4); MEAN CORPUSCULAR VOLUME 93 fl (80-97); MONOCYTES % (AUTO) 10.9 % (3-13); PLATELET COUNT 394 10^3/uL (150-450); RED BLOOD COUNT 3.73 10^6/uL (3.72-5.28); RED CELL DISTRIBUTION WIDTH 14.8 % (11.5-14.0); SEGMENTED NEUTROPHILS % (AUTO) 71.5 % (42-78); TOTAL CELLS COUNTED % (AUTO) 100 %; WHITE BLOOD COUNT 6.2 10^3/uL (4.0-10.5)
--- NOTE | 2018-07-07 14:13 | RADIOLOGY REPORT (SQ) ---
EXAM DESCRIPTION: CHEST SINGLE VIEW COMPLETED DATE/TIME: 07/07/2018 2:04 pm REASON FOR STUDY: sob COMPARISON: 05/18/2018 EXAM PARAMETERS: NUMBER OF VIEWS: One view. TECHNIQUE: Single frontal radiographic view of the chest acquired. RADIATION DOSE: NA LIMITATIONS: None. FINDINGS: LUNGS AND PLEURA: Chronic interstitial changes. Cannot exclude mild pulmonary edema. MEDIASTINUM AND HILAR STRUCTURES: No masses. Contour normal. HEART AND VASCULAR STRUCTURES: Cardiomegaly. BONES: No acute findings. HARDWARE: None in the chest. OTHER: No other significant finding. IMPRESSION: Cardiomegaly. Cannot exclude mild pulmonary edema. TECHNICAL DOCUMENTATION: JOB ID: [id number]- All Rights Reserved Reading location - IP/workstation name: [email or web address]
[2018-07-07 14:19] LABS: ALANINE AMINOTRANSFERASE 32 U/L (9-52); ALBUMIN 3.9 g/dL (3.5-5.0); ALKALINE PHOSPHATASE 101 U/L (38-126); ANION GAP 7 (5-19); ASPARTATE AMINO TRANSFERASE 40 U/L (14-36); BILIRUBIN,DIRECT 0.1 mg/dL (0.0-0.4); BILIRUBIN,TOTAL 0.4 mg/dL (0.2-1.3); BLOOD UREA NITROGEN 11 mg/dL (7-20); CALCIUM 9.3 mg/dL (8.4-10.2); CARBON DIOXIDE 32 mmol/L (22-30); CHLORIDE 100 mmol/L (98-107); GLUCOSE 151 mg/dL (75-110); POTASSIUM 3.5 mmol/L (3.6-5.0); SODIUM 138.8 mmol/L (137-145); TOTAL PROTEIN 6.6 g/dL (6.3-8.2)
[2018-07-07] MEDS ORDERED: FUROSEMIDE INJ/PF 40 MG/4 ML SDV IV ONE (14:50)
[2018-07-07] MEDS ORDERED: LEVALBUTEROL HCL NEB 0.63 MG/3 ML AMPUL NEB PRN (16:33)
[2018-07-07] MEDS ORDERED: ACETAMINOPHEN 325 MG TABLET PO PRN (16:33)
[2018-07-07] MEDS ORDERED: ONDANSETRON HCL INJ/PF 4 MG/2 ML SDV IV PRN (16:33)
[2018-07-07] MEDS ORDERED: IPRATROPIUM/ALBUTEROL 0.5-2.5 MG/3 ML AMPUL NEB PRN (16:33)
--- NOTE | 2018-07-07 16:33 | PDOC H&P ---
History of Present Illness Admission Date/PCP: 07/07/18 15:28 CORAZON CARRION PA-C Patient complains of: Shortness of breath History of Present Illness: SANDY DANG is a 88 year old female 88-year-old female with history of COPD/congestive heart failure history of multiple mini strokes hypertension hyperlipidemia diabetes mellitus right breast cancer status post radiation chemotherapy and mastectomy brought to the emergency room with increased shortness of breath. is providing history. Patient is having the shortness of breath on and off for several months it is getting worse from this morning she has a difficulty in breathing this morning patient is family decided to bring her to the hospital for further evaluation. As per the family no history of cold cough fever no nausea no vomiting no diarrhea no chest pains. He is not on oxygen at home patient is ex- smoker. The emergency room patient was placed on BiPAP and chest x-ray does not show any fluid overload ABG shows PCO2 42 and medical consult was called for admission. Went to the ER evaluated the patient spoke to extensively he is telling me the patient has a living will she is a DNR/DNI. 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 Psychiatric Medical History: Reports: Dementia Denies: Depression Hematology: Reports: Anemia Past Surgical History Past Surgical History: Reports: Appendectomy, Cholecystectomy, Mastectomy - right, Other - Unknown Denies: Hysterectomy Social History Smoking Status: Unknown if Ever Smoked Frequency of Alcohol Use: None Hx Recreational Drug Use: No Drugs: None Hx Prescription Drug Abuse: No - Advance Directive Resuscitation Status: Do Not Resuscitate Family History Family History: CAD Parental Family History Reviewed: Yes Children Family History Reviewed: Yes Sibling(s) Family History Reviewed.: Yes Medication/Allergy Home Medications: Aspirin [Aspirin EC] 81 mg PO QHS 03/01/18 Atorvastatin Calcium [Lipitor 20 mg Tablet] 20 mg PO QHS 03/01/18 Carvedilol [Coreg 12.5 mg Tablet] 12.5 mg PO Q12 03/01/18 Eplerenone [Inspra] 50 mg PO DAILY 03/01/18 Escitalopram Oxalate [Lexapro] 20 mg PO QPM 03/01/18 Anastrozole [Arimidex 1 mg Tablet] 1 mg PO DAILY 05/18/18 Calcium Carbonate/Vitamin D3 [Oyster Shell 500-Vit D3 200 Tb] 1 each PO DAILY 05/18/18 Clonidine HCl [Catapres] 0.1 mg PO DAILY 05/18/18 Donepezil HCl [Aricept] 10 mg PO QPM 05/18/18 Furosemide [Lasix 20 mg Tablet] 20 mg PO QAM 05/18/18 Hydralazine HCl [Apresoline 25 mg Tablet] 50 mg PO TID 05/18/18 Levothyroxine Sodium [Synthroid 0.15 mg Tablet] 0.15 mg PO DAILY 05/18/18 Losartan Potassium [Cozaar 100 mg Tablet] 100 mg PO QHS 05/18/18 Magnesium Oxide [Mag-Ox 400 mg Tablet] 400 mg PO DAILY 05/18/18 Metformin HCl 500 mg PO BID 05/18/18 Nifedipine [Nifedipine ER] 60 mg PO QHS 05/18/18 Omeprazole Magnesium [Prilosec Otc] 20 mg PO QHS 05/18/18 Ropinirole HCl [Requip] 2 mg PO BID 05/18/18 Acetaminophen [Tylenol 325 mg Tablet] 650 mg PO Q4HP PRN tablet 05/20/18 Docusate Sodium [Colace 100 mg Capsule] 100 mg PO DAILY capsule 05/20/18 Vancomycin HCl [Vancocin Inj 500 mg Vial] 250 mg PO Q6 10 Days #20 vial 05/20/18 Allergies/Adverse Reactions: diazepam [From Valium] Allergy (Verified 05/18/18 04:54) Review of Systems Constitutional: ABSENT: fever(s), headache(s) Eyes: ABSENT: visual disturbances Ears: ABSENT: hearing changes Cardiovascular: ABSENT: chest pain Respiratory: PRESENT: dyspnea Gastrointestinal: ABSENT: abdominal pain, constipation, diarrhea, hematemesis, hematochezia, nausea, vomiting Neurological: ABSENT: abnormal gait, abnormal speech, confusion, dizziness, focal weakness, syncope Psychiatric: ABSENT: anxiety, depression, homidical ideation, suicidal ideation Physical Exam Vital Signs: Temp Pulse Resp BP Pulse Ox 97.7 F 66 18 154/59 H 97 07/07/18 13:15 07/07/18 13:15 07/07/18 13:15 07/07/18 13:15 07/07/18 13:00 Intake & Output 07/06/18 07/07/18 07/08/18 06:59 06:59 06:59 Weight 66.678 kg Neck exam: ABSENT: carotid bruit, JVD, lymphadenopathy, thyromegaly Respiratory exam: PRESENT: decreased breath sounds Cardiovascular exam: PRESENT: tachycardia GI/Abdominal exam: PRESENT: normal bowel sounds, soft. ABSENT: distended, guarding, mass, organolmegaly, rebound, tenderness Extremities exam: PRESENT: full ROM. ABSENT: calf tenderness, clubbing, pedal edema Neurological exam: PRESENT: alert, awake, oriented to person, oriented to place, oriented to time, oriented to situation, CN II-XII grossly intact. ABSENT: motor sensory deficit Psychiatric exam: PRESENT: appropriate affect, normal mood. ABSENT: homicidal ideation, suicidal ideation Results Laboratory Results: 07/07/18 12:44 07/07/18 12:44 07/07/18 07/07/18 07/07/18 12:44 12:44 13:48 WBC 6.2 RBC 3.73 Hgb 11.8 L Hct 34.6 L MCV 93 MCH 31.6 MCHC 34.0 RDW 14.8 H Plt Count 394 Seg Neutrophils % 71.5 Lymphocytes % 16.1 Monocytes % 10.9 Eosinophils % 0.8 Basophils % 0.7 Absolute Neutrophils 4.4 Absolute Lymphocytes 1.0 Absolute Monocytes 0.7 Absolute Eosinophils 0.0 Absolute Basophils 0.0 Carbonic Acid 1.29 HCO3/H2CO3 Ratio 20:1 ABG pH 7.41 ABG pCO2 42.9 ABG pO2 83.6 ABG HCO3 26.7 H ABG O2 Saturation 96.3 ABG Base Excess 1.8 FiO2 40 Sodium 138.8 Potassium 3.5 L Chloride 100 Carbon Dioxide 32 H Anion Gap 7 BUN 11 Creatinine 0.53 Est GFR ( Amer) > 60 Est GFR (Non-Af Amer) > 60 Glucose 151 H Calcium 9.3 Total Bilirubin 0.4 AST 40 H ALT 32 Alkaline Phosphatase 101 Total Protein 6.6 Albumin 3.9 07/07/18 07/07/18 12:44 12:44 Troponin I < 0.012 NT-Pro-B Natriuret Pep 2530 H Impressions: Chest X-Ray 07/07/18 13:16 IMPRESSION: Cardiomegaly. Cannot exclude mild pulmonary edema. Assessment & Plan - Diagnosis (1) Acute exacerbation of congestive heart failure Qualifiers: Heart failure type: unspecified Qualified Code(s): I50.9 - Heart failure, unspecified Is this a current diagnosis for this admission?: Yes Plan: 07/07/2018-patient came in with respiratory distress. She was placed on BiPAP pulse ox are in the 70s when she came to the emergency room. Patient is going to be placed in IMCU. Plan is to continue the BiPAP. Plan to do the regular ABGs. Plan to put a consult for cardiology and nephrology. Start on nebulizer treatments. And check for the echocardiogram. I am going to send to serial cardiac enzymes x3 along with a BNP. Plan to arrange for strict input output chart. GI prophylaxis implemented started on DVT prophylaxis. (2) COPD exacerbation Is this a current diagnosis for this admission?: Yes Plan: 07/07/2018-patient has history of COPD not on home oxygen. Going to start her on IV steroids, Xopenex nebulizations ipratropium nebulizations , flutter valve therapy. pt going to put her on a BiPAP on as needed basis. We going to do the follow-up chest x-ray. (3) Stroke Is this a current diagnosis for this admission?: Yes Plan: 07/07/2018-patient has multiple strokes before, patient walks with the help of a rolling walker. No new neurological problems were noticed by the family. We are going to closely follow the patient on regular basis. (4) Diabetes 1.5, managed as type 2 Is this a current diagnosis for this admission?: Yes Plan: 07/07/2018-patient has history of diabetes mellitus type 2 she is on metformin 500 mg p.o. twice a day. We are going to put her on a sliding scale while she was in the hospital will be going to withhold metformin. I am going to check her hemoglobin A1c. (5) Hypothyroidism Is this a current diagnosis for this admission?: Yes Plan: 07/07/2018-patient has history of hypothyroidism she is on Synthyroid 150 mcg p.o. daily at home we plan to resume the medication here. (6) Hypertension Is this a current diagnosis for this admission?: Yes Plan: 07/07/2018-patient has history of hypertension she is on eplerenone 50 mg p.o. daily, Cozaar 100 mg p.o. daily furosemide 20 mg p.o. daily and Coreg 12.5 mg p.o. twice a day, nifedipine 60 mg p.o. daily, clonidine 0.2 mg in the morning 0.1 mg in the p.m. and also hydralazine 100 mg p.o. a day . plan is to resume her home medications during the hospital stay. - Time Time Spent: 50 to 70 Minutes Medications reviewed and adjusted accordingly: Yes Anticipated discharge: Home
[2018-07-07] MEDS ORDERED: (PENDING PHARMACY ID) (Donepezil Hcl [Aricept] 10 MG) PO SCH (18:00)
[2018-07-07] MEDS: HYDRALAZINE HCL 25 MG TABLET PO SCH (18:17)
[2018-07-07] MEDS: ESCITALOPRAM OXALATE 10 MG TABLET PO SCH (18:17)
[2018-07-07] MEDS: DONEPEZIL HCL 5 MG TABLET PO SCH (18:17)
[2018-07-07] MEDS: ROPINIROLE HCL 2 MG TABLET PO SCH (18:17)
[2018-07-07 19:09] LABS: APPEARANCE,URINE SLIGHTLY-CLOUDY; BILIRUBIN,URINE NEGATIVE (NEGATIVE); COLOR,URINE STRAW; GLUCOSE, URINE NEGATIVE (NEGATIVE); KETONES,URINE NEGATIVE (NEGATIVE); LEUKOCYTE ESTERASE,URINE MODERATE (NEGATIVE); NITRITE,URINE NEGATIVE (NEGATIVE); PROTEIN,URINE 30 mg/dL (NEGATIVE); URINE SPECIFIC GRAVITY 1.005; UROBILINOGEN,URINE NEGATIVE mg/dL (<2.0)
[2018-07-07 20:20] LABS: URINE AMPHETAMINES SCREEN NEGATIVE; URINE BARBITURATES SCREEN NEGATIVE; URINE BENZODIAZEPINES SCREEN NEGATIVE; URINE COCAINE SCREEN NEGATIVE; URINE MARIJUANA (THC) SCREEN NEGATIVE; URINE METHADONE SCREEN NEGATIVE; URINE PHENCYCLIDINE SCREEN NEGATIVE
[2018-07-07 20:22] LABS: CREATINE KINASE MB 1.56 ng/mL (<4.55)
[2018-07-07 20:29] LABS: TROPONIN I < 0.012 ng/mL
[2018-07-07] MEDS ORDERED: (PENDING PHARMACY ID) (Nifedipine [Nifedipine Er] 60 MG) PO SCH (22:00)
[2018-07-07] MEDS: NIFEDIPINE 30 MG TAB.ER.24 PO SCH (22:49)
[2018-07-07] MEDS: FAMOTIDINE INJ/PF 20 MG/2 ML SDV IV SCH (22:49)
[2018-07-07] MEDS: METHYLPREDNISOLONE INJ 40 MG/1 ML SDV IV SCH (22:49)
[2018-07-07] MEDS: LOSARTAN POTASSIUM 50 MG TABLET PO SCH (22:50)
[2018-07-07] MEDS: ATORVASTATIN CALCIUM 20 MG TABLET PO SCH (22:50)
[2018-07-07] MEDS: CARVEDILOL 12.5 MG TABLET PO SCH (22:50)
[2018-07-07] MEDS: ASPIRIN 81 MG TABLET, ENT COATED PO SCH (22:50)
[2018-07-08 02:03] LABS: CREATINE KINASE MB 1.88 ng/mL (<4.55)
[2018-07-08 02:06] LABS: TROPONIN I < 0.012 ng/mL
[2018-07-08 06:53] LABS: ARTERIAL BLOOD HCO3 32.3 mmol/L (20-24); ARTERIAL BLOOD O2 SATURATION 90.3 % (94-98); ARTERIAL BLOOD PCO2 49.7 mmHg (35-45); ARTERIAL BLOOD PH 7.43 (7.35-7.45); ARTERIAL BLOOD PO2 57.4 mmHg (80-100); ARTERIAL BLOOD TOTAL CO2 33.8 mmol/L (21-25)
[2018-07-08 06:54] LABS: ARTERIAL BLOOD FIO2 36%
--- NOTE | 2018-07-08 09:08 | EKG REPORT ---
SEVERITY:- ABNORMAL ECG - SINUS RHYTHM VENTRICULAR PREMATURE COMPLEX NONSPECIFIC INTRAVENTRICULAR CONDUCTION DELAY CONSIDER ANTERIOR INFARCT : Confirmed by: Sharron Borrero MD 08-Jul-2018 09:07:21
[2018-07-08] MEDS: HYDRALAZINE HCL 25 MG TABLET PO SCH ×3 (09:28→18:05)
[2018-07-08] MEDS: DOCUSATE SODIUM 100 MG CAPSULE PO SCH (09:29)
[2018-07-08] MEDS: ENOXAPARIN SODIUM INJ 40 MG/0.4 ML DISP.SYRIN SUBCUT SCH (09:29)
[2018-07-08] MEDS: ANASTROZOLE 1 MG TABLET PO SCH (09:29)
[2018-07-08] MEDS: CLONIDINE HCL 0.1 MG TABLET PO SCH (09:29)
[2018-07-08] MEDS: CARVEDILOL 12.5 MG TABLET PO SCH ×2 (09:29→21:56)
[2018-07-08] MEDS: FAMOTIDINE INJ/PF 20 MG/2 ML SDV IV SCH ×2 (09:30→22:02)
[2018-07-08] MEDS: METHYLPREDNISOLONE INJ 40 MG/1 ML SDV IV SCH ×2 (09:30→21:56)
[2018-07-08] MEDS: LEVOTHYROXINE SODIUM 0.15 MG TABLET PO SCH (09:30)
[2018-07-08] MEDS: CALCIUM CARBONATE 250 MG/VITAMIN D3 125 UNIT TABLET PO SCH (09:30)
[2018-07-08] MEDS: ROPINIROLE HCL 2 MG TABLET PO SCH ×2 (09:30→18:36)
[2018-07-08] MEDS ORDERED: DOCUSATE SODIUM 100 MG CAPSULE PO SCH (10:00)
[2018-07-08] MEDS ORDERED: (PENDING PHARMACY ID) (Calcium Carbonate/Vitamin D3 [Oyster Shell 500-Vit D3 200 Tb] 1 EAC PO SCH (10:00)
[2018-07-08] MEDS ORDERED: (PENDING PHARMACY ID) (Eplerenone [Inspra] 50 MG) PO SCH (10:00)
--- NOTE | 2018-07-08 10:38 | RADIOLOGY REPORT (SQ) ---
EXAM DESCRIPTION: CHEST SINGLE VIEW COMPLETED DATE/TIME: 07/08/2018 10:28 am REASON FOR STUDY: resp failure COMPARISON: CT angio chest 05/18/2018 Chest films 07/07/2018, 05/18/2018 EXAM PARAMETERS: NUMBER OF VIEWS: One view. TECHNIQUE: Single frontal radiographic view of the chest acquired. RADIATION DOSE: NA LIMITATIONS: None. FINDINGS: LUNGS AND PLEURA: Chronic elevation right hemidiaphragm. Diffuse alveolar opacities from fluid overload or congestive failure. No pleural effusions. No pneu mothorax. MEDIASTINUM AND HILAR STRUCTURES: No masses. Contour normal. HEART AND VASCULAR STRUCTURES: Stable moderate cardiomegaly BONES: No acute findings. HARDWARE: Clips right axilla. OTHER: No other significant finding. IMPRESSION: Diffuse ground-glass opacities throughout both lungs worrisome for alveolar edema TECHNICAL DOCUMENTATION: JOB ID: [id number] [employer]- All Rights Reserved Reading location - IP/workstation name: [email or web address]
--- NOTE | 2018-07-08 11:51 | PDOC PROGRESS REPORT ---
Subjective Progress Note for:: 07/08/18 Subjective:: 07/08/1997 [id number] female with history of COPD/congestive heart failure, multiple mini strokes hypertension diabetes mellitus right breast cancer status post radiation, chemotherapy and mastectomy came to the emergency room increasing shortness of breath. Chest x-ray shows increasing pulmonary edema. Patient pulse ox is 97% on 4 L. Afebrile. Alert and awake communicating better today. ABG today on 36% oxygen pH 7.43/PCO2 49 PO2 57.4 pulse ox is 90%. Reason For Visit: RESPIRATORY FAILURE Physical Exam Vital Signs: Temp Pulse Resp BP Pulse Ox 98.6 F 37 L 20 118/55 L 97 07/08/18 10:51 07/08/18 10:51 07/08/18 10:51 07/08/18 10:51 07/08/18 10:51 Intake & Output 07/07/18 07/08/18 07/09/18 06:59 06:59 06:59 Intake Total 474 Output Total 1425 325 Balance -1425 149 Weight 67.2 kg General appearance: PRESENT: no acute distress Head exam: PRESENT: atraumatic Eye exam: PRESENT: PERRLA Mouth exam: PRESENT: dry mucosa Neck exam: ABSENT: carotid bruit, JVD, lymphadenopathy, thyromegaly Respiratory exam: PRESENT: crackles, decreased breath sounds Cardiovascular exam: PRESENT: systolic murmur, tachycardia GI/Abdominal exam: PRESENT: normal bowel sounds, soft. ABSENT: distended, guarding, mass, organolmegaly, rebound, tenderness Extremities exam: PRESENT: full ROM. ABSENT: calf tenderness, clubbing, pedal edema Neurological exam: PRESENT: alert, awake, oriented to person, oriented to place, oriented to time, oriented to situation. ABSENT: motor sensory deficit Psychiatric exam: PRESENT: appropriate affect, normal mood. ABSENT: homicidal ideation, suicidal ideation Results Laboratory Results: 07/07/18 12:44 07/07/18 12:44 07/07/18 07/07/18 07/07/18 12:44 12:44 13:48 WBC 6.2 RBC 3.73 Hgb 11.8 L Hct 34.6 L MCV 93 MCH 31.6 MCHC 34.0 RDW 14.8 H Plt Count 394 Seg Neutrophils % 71.5 Lymphocytes % 16.1 Monocytes % 10.9 Eosinophils % 0.8 Basophils % 0.7 Absolute Neutrophils 4.4 Absolute Lymphocytes 1.0 Absolute Monocytes 0.7 Absolute Eosinophils 0.0 Absolute Basophils 0.0 Carbonic Acid 1.29 HCO3/H2CO3 Ratio 20:1 ABG pH 7.41 ABG pCO2 42.9 ABG pO2 83.6 ABG HCO3 26.7 H ABG O2 Saturation 96.3 ABG Base Excess 1.8 FiO2 40 Sodium 138.8 Potassium 3.5 L Chloride 100 Carbon Dioxide 32 H Anion Gap 7 BUN 11 Creatinine 0.53 Est GFR ( Amer) > 60 Est GFR (Non-Af Amer) > 60 Glucose 151 H Calcium 9.3 Total Bilirubin 0.4 AST 40 H ALT 32 Alkaline Phosphatase 101 Total Protein 6.6 Albumin 3.9 Urine Color Urine Appearance Urine pH Ur Specific [place] Urine Protein Urine Glucose (UA) Urine Ketones Urine Blood Urine Nitrite Ur Leukocyte Esterase Urine WBC (Auto) Urine RBC (Auto) 07/07/18 07/08/18 18:50 06:34 WBC RBC Hgb Hct MCV MCH MCHC RDW Plt Count Seg Neutrophils % Lymphocytes % Monocytes % Eosinophils % Basophils % Absolute Neutrophils Absolute Lymphocytes Absolute Monocytes Absolute Eosinophils Absolute Basophils Carbonic Acid 1.50 H HCO3/H2CO3 Ratio 21:1 ABG pH 7.43 ABG pCO2 49.7 H ABG pO2 57.4 L ABG HCO3 32.3 H ABG O2 Saturation 90.3 L ABG Base Excess 7.0 FiO2 36% Sodium Potassium Chloride Carbon Dioxide Anion Gap BUN Creatinine Est GFR ( Amer) Est GFR (Non-Af Amer) Glucose Calcium Total Bilirubin AST ALT Alkaline Phosphatase Total Protein Albumin Urine Color STRAW Urine Appearance SLIGHTLY-CLOUDY Urine pH 5.0 Ur Specific [place] 1.005 Urine Protein 30 H Urine Glucose (UA) NEGATIVE Urine Ketones NEGATIVE Urine Blood NEGATIVE Urine Nitrite NEGATIVE Ur Leukocyte Esterase MODERATE H Urine WBC (Auto) 58 Urine RBC (Auto) 3 07/07/18 07/07/18 07/07/18 12:44 12:44 19:26 CK-MB (CK-2) 1.56 Troponin I < 0.012 < 0.012 NT-Pro-B Natriuret Pep 2530 H 07/08/18 01:18 CK-MB (CK-2) 1.88 Troponin I < 0.012 NT-Pro-B Natriuret Pep Impressions: Chest X-Ray 07/08/18 06:00 IMPRESSION: Diffuse ground-glass opacities throughout both lungs worrisome for alveolar edema Assessment & Plan - Diagnosis (1) Acute exacerbation of congestive heart failure Qualifiers: Heart failure type: unspecified Qualified Code(s): I50.9 - Heart failure, unspecified Is this a current diagnosis for this admission?: Yes Plan: 07/07/2018-patient came in with respiratory distress. She was placed on BiPAP pulse ox are in the 70s when she came to the emergency room. Patient is going to be placed in IMCU. Plan is to continue the BiPAP. Plan to do the regular ABGs. Plan to put a consult for cardiology and nephrology. Start on nebulizer treatments. And check for the echocardiogram. I am going to send to serial cardiac enzymes x3 along with a BNP. Plan to arrange for strict input output chart. GI prophylaxis implemented started on DVT prophylaxis. 07/08/2018-patient pulse ox is a 97% on 4 L. Chest x-ray shows alveolar edema. ABG on 36% oxygen pH is 7.43/PCO2 49/PO2 57.4 oxygen saturation is 90%. Started on Lasix 40 mg p.o. daily. And placed on potassium supplementation 20 mg p.o. daily. BNP is 2530. Cardiac enzymes negative so far. Echocardiogram was requested report is pending. Follow-up chest x-ray will be done tomorrow. (2) COPD exacerbation Is this a current diagnosis for this admission?: Yes Plan: 07/07/2018-patient has history of COPD not on home oxygen. Going to start her on IV steroids, Xopenex nebulizations ipratropium nebulizations , flutter valve therapy. pt going to put her on a BiPAP on as needed basis. We going to do the follow-up chest x-ray. 07/08/2018 patient has history of COPD not on home oxygen. Pulse ox is 97% on 4 L. Chest x-ray shows pulmonary edema. Presently she is on IV steroids, Xopenex, ipratropium nebulizations. Flutter valve therapy is also requested. She is off the BiPAP right now. plan is to continue the present management. During the hospital stay we will check for the home oxygen requirements. (3) Stroke Is this a current diagnosis for this admission?: Yes Plan: 07/07/2018-patient has multiple strokes before, patient walks with the help of a rolling walker. No new neurological problems were noticed by the family. We are going to closely follow the patient on regular basis. 07/08/2018-patient was admitted with multiple strokes as per , patient uses rolling walker at home. Patient neuro status is stable. Managed to continue the present management. (4) Diabetes 1.5, managed as type 2 Is this a current diagnosis for this admission?: Yes Plan: 07/07/2018-patient has history of diabetes mellitus type 2 she is on metformin 500 mg p.o. twice a day. We are going to put her on a sliding scale while she was in the hospital will be going to withhold metformin. I am going to check her hemoglobin A1c. 07/08/2018 patient has history of diabetes mellitus she is on metformin 500 mg twice a day at home old, started on insulin sliding scale. Plan is to check the hemoglobin A1c. Latest blood sugars are 151. Stable. (5) Hypothyroidism Is this a current diagnosis for this admission?: Yes Plan: 07/07/2018-patient has history of hypothyroidism she is on Synthyroid 150 mcg p.o. daily at home we plan to resume the medication here. 07/08/2018 patient has history of hypothyroidism, she is on Synthroid 150 mcg p.o. daily. Plan is to check her TSH levels tomorrow morning. (6) Hypertension Is this a current diagnosis for this admission?: Yes Plan: 07/07/2018-patient has history of hypertension she is on eplerenone 50 mg p.o. daily, Cozaar 100 mg p.o. daily furosemide 20 mg p.o. daily and Coreg 12.5 mg p.o. twice a day, nifedipine 60 mg p.o. daily, clonidine 0.2 mg in the morning 0.1 mg in the p.m. and also hydralazine 100 mg p.o. a day . plan is to resume her home medications during the hospital stay. 07/08/2018 patient is on multiple antihypertensive medications. Dr. Alfie Urrutia is managing the blood pressure medications as an outpatient. Blood p ressure today is 118/55. Stable. Plan is to continue the present management. - Time Time Spent with patient: 15-24 minutes Anticipated discharge: Home
[2018-07-08 12:16] LABS: ABSOLUTE LYMPHOCYTES (AUTO) 0.7 10^3/uL (0.5-4.7); ABSOLUTE MONOCYTES (AUTO) 0.4 10^3/uL (0.1-1.4); ABSOLUTE NEUT (AUTO) 7.2 10^3/uL (1.7-8.2); BASOPHILS % (AUTO) 0.1 % (0-2); HEMATOCRIT 30.4 % (36.0-47.0); HEMOGLOBIN 10.3 g/dL (12.0-15.5); LYMPHOCYTES % (AUTO) 8.5 % (13-45); MEAN CORPUSCULAR HEMOGLOBIN 31.4 pg (27.0-33.4); MEAN CORPUSCULAR HGB CONC 33.8 g/dL (32.0-36.0); MEAN CORPUSCULAR VOLUME 93 fl (80-97); MONOCYTES % (AUTO) 4.8 % (3-13); PLATELET COUNT 357 10^3/uL (150-450); RED BLOOD COUNT 3.27 10^6/uL (3.72-5.28); SEGMENTED NEUTROPHILS % (AUTO) 86.6 % (42-78); TOTAL CELLS COUNTED % (AUTO) 100 %; WHITE BLOOD COUNT 8.3 10^3/uL (4.0-10.5)
[2018-07-08 12:37] LABS: ALANINE AMINOTRANSFERASE 26 U/L (9-52); ALBUMIN 3.1 g/dL (3.5-5.0); ALKALINE PHOSPHATASE 83 U/L (38-126); ANION GAP 7 (5-19); ASPARTATE AMINO TRANSFERASE 26 U/L (14-36); BILIRUBIN,DIRECT 0.2 mg/dL (0.0-0.4); BILIRUBIN,TOTAL 0.3 mg/dL (0.2-1.3); BLOOD UREA NITROGEN 15 mg/dL (7-20); CALCIUM 8.3 mg/dL (8.4-10.2); CARBON DIOXIDE 33 mmol/L (22-30); CHLORIDE 96 mmol/L (98-107); CHOLESTEROL 78.28 mg/dL (0-200); GLUCOSE 242 mg/dL (75-110); SODIUM 136.2 mmol/L (137-145); TOTAL PROTEIN 5.2 g/dL (6.3-8.2); TRIGLYCERIDES 81 mg/dL (<150)
[2018-07-08] MEDS: POTASSIUM CHLORIDE 20 MEQ/15 ML UDCUP PO SCH (12:42)
[2018-07-08] MEDS: EPLERENONE 25 MG TABLET PO SCH (12:42)
[2018-07-08] MEDS: FUROSEMIDE 40 MG TABLET PO SCH (12:42)
[2018-07-08 12:48] LABS: CREATINE KINASE MB 1.92 ng/mL (<4.55); DIRECT LDL 37 mg/dL (<100); TROPONIN I 0.014 ng/mL
[2018-07-08] MEDS ORDERED: GLUCAGON,HUMAN RECOMB 1 MG INJ IM PRN (14:30)
[2018-07-08] MEDS ORDERED: DEXTROSE 50%-WATER 25 GM/50 ML DISP.SYRIN IV PRN ×2 (14:30)
[2018-07-08] MEDS ORDERED: DEXTROSE 40% GEL 15 GM TUBE PO PRN ×2 (14:30)
[2018-07-08] MEDS: ESCITALOPRAM OXALATE 10 MG TABLET PO SCH (18:36)
[2018-07-08] MEDS: DONEPEZIL HCL 5 MG TABLET PO SCH (18:36)
[2018-07-08] MEDS: LOSARTAN POTASSIUM 50 MG TABLET PO SCH (21:56)
[2018-07-08] MEDS: ASPIRIN 81 MG TABLET, ENT COATED PO SCH (21:56)
[2018-07-08] MEDS: NIFEDIPINE 30 MG TAB.ER.24 PO SCH (21:56)
[2018-07-08] MEDS: ATORVASTATIN CALCIUM 20 MG TABLET PO SCH (21:56)
--- NOTE | 2018-07-08 23:00 | EKG REPORT ---
SEVERITY:- ABNORMAL ECG - SINUS RHYTHM INCOMPLETE RIGHT BUNDLE BRANCH BLOCK CONSIDER ANTERIOR INFARCT : Confirmed by: Sharron Borrero MD 08-Jul-2018 22:59:20
[2018-07-09] MEDS ORDERED: CARVEDILOL 12.5 MG TABLET PO ONE (01:00)
[2018-07-09] MEDS: HYDRALAZINE HCL 25 MG TABLET PO SCH ×3 (09:36→18:12)
[2018-07-09] MEDS: POTASSIUM CHLORIDE 20 MEQ/15 ML UDCUP PO SCH (09:37)
[2018-07-09] MEDS: FAMOTIDINE INJ/PF 20 MG/2 ML SDV IV SCH ×2 (09:37→23:17)
[2018-07-09] MEDS: FUROSEMIDE 40 MG TABLET PO SCH (09:37)
[2018-07-09] MEDS: DOCUSATE SODIUM 100 MG CAPSULE PO SCH (09:37)
[2018-07-09] MEDS: CALCIUM CARBONATE 250 MG/VITAMIN D3 125 UNIT TABLET PO SCH (09:37)
[2018-07-09] MEDS: METHYLPREDNISOLONE INJ 40 MG/1 ML SDV IV SCH (09:37)
[2018-07-09] MEDS: INSULIN REG, HUMAN 100 UNIT/ML 3 ML VIAL (PYX) SUBCUT PRN ×4 (09:37→23:17)
[2018-07-09] MEDS: ENOXAPARIN SODIUM INJ 40 MG/0.4 ML DISP.SYRIN SUBCUT SCH (09:38)
[2018-07-09] MEDS: ANASTROZOLE 1 MG TABLET PO SCH (09:38)
[2018-07-09] MEDS: ROPINIROLE HCL 2 MG TABLET PO SCH ×2 (09:38→18:18)
[2018-07-09] MEDS: CLONIDINE HCL 0.1 MG TABLET PO SCH (09:38)
[2018-07-09] MEDS: LEVOTHYROXINE SODIUM 0.15 MG TABLET PO SCH (09:38)
[2018-07-09] MEDS: EPLERENONE 25 MG TABLET PO SCH (09:38)
[2018-07-09] MEDS ORDERED: CARVEDILOL 12.5 MG TABLET PO SCH (10:00)
[2018-07-09] MEDS: CARVEDILOL 12.5 MG TABLET PO SCH ×2 (10:05→23:17)
--- NOTE | 2018-07-09 13:08 | RADIOLOGY REPORT (SQ) ---
EXAM DESCRIPTION: CHEST SINGLE VIEW COMPLETED DATE/TIME: 07/09/2018 12:11 pm REASON FOR STUDY: pul edema COMPARISON: CT angio chest 05/18/2018 Chest films 03/01/2018, 07/07/2018, 07/08/2018 EXAM PARAMETERS: NUMBER OF VIEWS: One view. TECHNIQUE: Single frontal radiographic view of the chest acquired. RADIATION DOSE: NA LIMITATIONS: None. FINDINGS: LUNGS AND PLEURA: Partial clearing of the pulmonary edema pattern compared to chest film . No pleural effusion or pneumothorax. MEDIASTINUM AND HILAR STRUCTURES: No masses. Contour normal. HEART AND VASCULAR STRUCTURES: Stable marked cardiomegaly BONES: No acute findings. HARDWARE: Old surgical clips right axilla OTHER: No other significant finding. IMPRESSION: Partial clearing of the pulmonary edema pattern compared to yesterday's films TECHNICAL DOCUMENTATION: JOB ID: [id number] [employer]- All Rights Reserved Reading location - IP/workstation name: [email or web address]
--- NOTE | 2018-07-09 13:30 | PDOC PROGRESS REPORT ---
Subjective Progress Note for:: 07/09/18 Subjective:: 07/08/2018- 88-year-old female with history of COPD/congestive heart failure, multiple mini strokes hypertension diabetes mellitus right breast cancer status post radiation, chemotherapy and mastectomy came to the emergency room increasing shortness of breath. Chest x-ray shows increasing pulmonary edema. Patient pulse ox is 97% on 4 L. Afebrile. Alert and awake communicating better today. ABG today on 36% oxygen pH 7.43/PCO2 49 PO2 57.4 pulse ox is 90%. 07/09/[id number]-syxz-old female admitted for shortness of breath. Chest x-ray shows yesterday increased pulmonary edema. Follow-up chest x-ray was done waiting for the official results. Patient pulse oxes 100% on 4 L. Comfortably in the bed eating her lunch. No acute events in the last 24 hours. Afebrile. Reason For Visit: RESPIRATORY FAILURE Physical Exam Vital Signs: Temp Pulse Resp BP Pulse Ox 97.8 F 57 L 18 114/61 98 07/09/18 10:48 07/09/18 10:48 07/09/18 10:48 07/09/18 10:48 07/09/18 10:48 Intake & Output 07/08/18 07/09/18 07/10/18 06:59 06:59 06:59 Intake Total 1189 Output Total 1425 2075 Balance -1425 -886 Weight 67.2 kg 66.8 kg General appearance: PRESENT: no acute distress Head exam: PRESENT: atraumatic Eye exam: PRESENT: PERRLA Mouth exam: PRESENT: moist Neck exam: ABSENT: carotid bruit, JVD, lymphadenopathy, thyromegaly Respiratory exam: PRESENT: decreased breath sounds Cardiovascular exam: PRESENT: systolic murmur, tachycardia GI/Abdominal exam: PRESENT: normal bowel sounds, soft. ABSENT: distended, guarding, mass, organolmegaly, rebound, tenderness Neurological exam: PRESENT: alert, awake, oriented to person, oriented to place, oriented to time, oriented to situation, CN II-XII grossly intact. ABSENT: motor sensory deficit Psychiatric exam: PRESENT: appropriate affect, normal mood. ABSENT: homicidal ideation, suicidal ideation Results Laboratory Results: 07/08/18 11:40 07/08/18 17:35 07/08/18 07/09/18 17:35 06:15 Glucose 168 H Magnesium 1.7 07/07/18 07/07/18 07/07/18 12:44 12:44 19:26 CK-MB (CK-2) 1.56 Troponin I < 0.012 < 0.012 NT-Pro-B Natriuret Pep 2530 H 07/08/18 07/08/18 07/09/18 01:18 11:40 06:15 CK-MB (CK-2) 1.88 1.92 Troponin I < 0.012 0.014 NT-Pro-B Natriuret Pep 3370 H 2410 H Impressions: Chest X-Ray 07/09/18 11:30 IMPRESSION: Partial clearing of the pulmonary edema pattern compared to yesterd ay[facility] films Assessment & Plan - Diagnosis (1) Acute exacerbation of congestive heart failure Qualifiers: Heart failure type: unspecified Qualified Code(s): I50.9 - Heart failure, unspecified Is this a current diagnosis for this admission?: Yes Plan: 07/07/2018-patient came in with respiratory distress. She was placed on BiPAP p ulse ox are in the 70s when she came to the emergency room. Patient is going to be placed in IMCU. Plan is to continue the BiPAP. Plan to do the regular ABGs. Plan to put a consult for cardiology and nephrology. Start on nebulizer treatments. And check for the echocardiogram. I am going to send to serial cardiac enzymes x3 along with a BNP. Plan to arrange for strict input output chart. GI prophylaxis implemented started on DVT prophylaxis. 07/08/2018-patient pulse ox is a 97% on 4 L. Chest x-ray shows alveolar edema. ABG on 36% oxygen pH is 7.43/PCO2 49/PO2 57.4 oxygen saturation is 90%. Started on Lasix 40 mg p.o. daily. And placed on potassium supplementation 20 mg p.o. daily. BNP is 2530. Cardiac enzymes negative so far. Echocardiogram was requested report is pending. Follow-up chest x-ray will be done tomorrow. 07/09/2018-pulse ox on 4 L is 100% today. Patient is comfortably in the bed eating her lunch. Follow-up chest x-ray reports are pending. Patient is on Lasix 40 mg p.o. daily, potassium supplementation 40 mg p.o. daily. Latest BNP is 2400. Echocardiogram report is pending. Plan is to continue the present management. (2) Stroke Is this a current diagnosis for this admission?: Yes Plan: 07/07/2018-patient has multiple strokes before, patient walks with the help of a rolling walker. No new neurological problems were noticed by the family. We are going to closely follow the patient on regular basis. 07/08/2018-patient was admitted with multiple strokes as per , patient uses rolling walker at home. Patient neuro status is stable. Managed to continue the present management. (3) Diabetes 1.5, managed as type 2 Is this a current diagnosis for this admission?: Yes Plan: 07/07/2018-patient has history of diabetes mellitus type 2 she is on metformin 500 mg p.o. twice a day. We are going to put her on a sliding scale while she was in the hospital will be going to withhold metformin. I am going to check her hemoglobin A1c. 07/08/2018 patient has history of diabetes mellitus she is on metformin 500 mg twice a day at home , started on insulin sliding scale. Plan is to check the hemoglobin A1c. Latest blood sugars are 151. Stable. 07/09/2018, patient is on metformin 500 mg p.o. twice daily at home which was on hold presently she is on insulin sliding scale. Latest blood sugar is 185 and hemoglobin A1c is 5.7. Plan is to continue the present management. (4) COPD exacerbation Is this a current diagnosis for this admission?: Yes Plan: 07/07/2018-patient has history of COPD not on home oxygen. Going to start her on IV steroids, Xopenex nebulizations ipratropium nebulizations , flutter valve therapy. pt going to put her on a BiPAP on as needed basis. We going to do the follow-up chest x-ray. 07/08/2018 patient has history of COPD not on home oxygen. Pulse ox is 97% on 4 L. Chest x-ray shows pulmonary edema. Presently she is on IV steroids, Xopenex, ipratropium nebulizations. Flutter valve therapy is also requested. She is off the BiPAP right now. plan is to continue the present management. During the hospital stay we will check for the home oxygen requirements. 07/09/2018-patient has history of COPD not on home oxygen here in the hospital pulse ox is 100% on 4 L. Chest x-ray shows pulmonary edema started on Lasix 40 mg daily and follow-up chest x-ray was done today waiting for the results. Patient is on IV steroids, Xopenex, ipratropium nebulizations, flutter valve therapy. Plan is to discontinue IV Solu-Medrol and start on prednisone 10 mg p.o. twice daily twice daily. Patient is not requiring BiPAP anymore. (5) Hypothyroidism Is this a current diagnosis for this admission?: Yes Plan: 07/07/2018-patient has history of hypothyroidism she is on Synthyroid 150 mcg p.o. daily at home we plan to resume the medication here. 07/08/2018 patient has history of hypothyroidism, she is on Synthroid 150 mcg p.o. daily. Plan is to check her TSH levels tomorrow morning. 07/09/2018-patient has history of hypothyroidism on Synthroid 150 mcg p.o. daily TSH is 2.33 within the therapeutic range plan is to continue the present dose of Synthyroid. (6) Hypertension Is this a current diagnosis for this admission?: Yes Plan: 07/07/2018-patient has history of hypertension she is on eplerenone 50 mg p.o. daily, Cozaar 100 mg p.o. daily furosemide 20 mg p.o. daily and Coreg 12.5 mg p.o. twice a day, nifedipine 60 mg p.o. daily, clonidine 0.2 mg in the morning 0.1 mg in the p.m. and also hydralazine 100 mg p.o. a day . plan is to resume her home medications during the hospital stay. 07/08/2018 patient is on multiple antihypertensive medications. Dr. Alfie Urrutia is managing the blood pressure medications as an outpatient. Blood pressure today is 118/55. Stable. Plan is to continue the present management. 07/09/2018-patient's blood pressure today is 114/61 well-controlled presently on Cozaar 100 mg daily, furosemide 20 mg p.o. daily, Coreg 12.5 mg p.o. twice a day, nifedipine 60 mg p.o. daily, clonidine 0.2 mg in the morning 0.1 mg the evening. Patient is also on hydralazine 100 mg p.o. daily. In addition to these meds pt is on eplerenone 50 mg po daily plan is to continue the present management. - Time Time Spent with patient: 15-24 minutes Medications reviewed and adjusted accordingly: Yes Anticipated discharge: Home
[2018-07-09] MEDS: DONEPEZIL HCL 5 MG TABLET PO SCH (18:12)
[2018-07-09] MEDS: ESCITALOPRAM OXALATE 10 MG TABLET PO SCH (18:12)
[2018-07-09] MEDS: PREDNISONE 10 MG TABLET PO SCH (18:12)
[2018-07-09] MEDS: ASPIRIN 81 MG TABLET, ENT COATED PO SCH (23:16)
[2018-07-09] MEDS: ATORVASTATIN CALCIUM 20 MG TABLET PO SCH (23:17)
[2018-07-09] MEDS: NIFEDIPINE 30 MG TAB.ER.24 PO SCH (23:17)
[2018-07-09] MEDS: LOSARTAN POTASSIUM 50 MG TABLET PO SCH (23:17)
[2018-07-10] MEDS: INSULIN REG, HUMAN 100 UNIT/ML 3 ML VIAL (PYX) SUBCUT PRN ×3 (08:17→17:51)
[2018-07-10] MEDS: DOCUSATE SODIUM 100 MG CAPSULE PO SCH (10:37)
[2018-07-10] MEDS: ENOXAPARIN SODIUM INJ 40 MG/0.4 ML DISP.SYRIN SUBCUT SCH (10:37)
[2018-07-10] MEDS: FAMOTIDINE INJ/PF 20 MG/2 ML SDV IV SCH ×2 (10:38→22:28)
[2018-07-10] MEDS: ROPINIROLE HCL 2 MG TABLET PO SCH ×2 (10:38→17:51)
[2018-07-10] MEDS: CLONIDINE HCL 0.1 MG TABLET PO SCH (10:38)
[2018-07-10] MEDS: PREDNISONE 10 MG TABLET PO SCH ×2 (10:38→17:51)
[2018-07-10] MEDS: LEVOTHYROXINE SODIUM 0.15 MG TABLET PO SCH (10:38)
[2018-07-10] MEDS: CALCIUM CARBONATE 250 MG/VITAMIN D3 125 UNIT TABLET PO SCH (10:38)
[2018-07-10] MEDS: CARVEDILOL 12.5 MG TABLET PO SCH ×2 (10:38→22:29)
[2018-07-10] MEDS: FUROSEMIDE 40 MG TABLET PO SCH (10:38)
[2018-07-10] MEDS: ANASTROZOLE 1 MG TABLET PO SCH (10:39)
[2018-07-10] MEDS: HYDRALAZINE HCL 25 MG TABLET PO SCH (10:39)
[2018-07-10] MEDS: EPLERENONE 25 MG TABLET PO SCH (10:39)
[2018-07-10] MEDS: POTASSIUM CHLORIDE 20 MEQ/15 ML UDCUP PO SCH (10:39)
--- NOTE | 2018-07-10 12:27 | PDOC PROGRESS REPORT ---
Subjective Progress Note for:: 07/10/18 Subjective:: 07/08/2018- 88-year-old female with history of COPD/congestive heart failure, multiple mini strokes hypertension diabetes mellitus right breast cancer status post radiation, chemotherapy and mastectomy came to the emergency room increasing shortness of breath. Chest x-ray shows increasing pulmonary edema. Patient pulse ox is 97% on 4 L. Afebrile. Alert and awake communicating better today. ABG today on 36% oxygen pH 7.43/PCO2 49 PO2 57.4 pulse ox is 90%. 07/09/[id number]-vsit-old female admitted for shortness of breath. Chest x-ray shows yesterday increased pulmonary edema. Follow-up chest x-ray was done waiting for the official results. Patient pulse oxes 100% on 4 L. Comfortably in the bed eating her lunch. No acute events in the last 24 hours. Afebrile. 07/10/[id number] female admitted with shortness of breath COPD and chest x-ray shows pulmonary edema follow-up the chest x-ray was done yesterday shows improvement. Patient is comfortably in the bed reading a book. Pulse ox is 92% on 3 L. No acute events in the last 24 hours. Patient is afebrile. Patient says she is fine. The blood pressures are little bit elevated this morning systolic is around 160s. Reason For Visit: RESPIRATORY FAILURE Physical Exam Vital Signs: Temp Pulse Resp BP Pulse Ox 97.9 F 68 18 144/94 H 92 07/10/18 08:20 07/10/18 10:57 07/10/18 10:57 07/10/18 08:20 07/10/18 10:57 Intake & Output 07/09/18 07/10/18 07/11/18 06:59 06:59 06:59 Intake Total 1189 1475 Output Total 1806 8512 Weight 66.8 kg 66.5 kg General appearance: PRESENT: no acute distress Head exam: PRESENT: atraumatic Eye exam: PRESENT: PERRLA Mouth exam: PRESENT: moist, tongue midline Neck exam: ABSENT: carotid bruit, JVD, lymphadenopathy, thyromegaly Respiratory exam: PRESENT: decreased breath sounds Cardiovascular exam: PRESENT: systolic murmur, tachycardia GI/Abdominal exam: PRESENT: normal bowel sounds, soft. ABSENT: distended, guarding, mass, organolmegaly, rebound, tenderness Extremities exam: PRESENT: full ROM. ABSENT: calf tenderness, clubbing, pedal edema Neurological exam: PRESENT: alert, awake, oriented to person, oriented to place, oriented to time, oriented to situation, CN II-XII grossly intact. ABSENT: motor sensory deficit Psychiatric exam: PRESENT: appropriate affect, normal mood. ABSENT: homicidal ideation, suicidal ideation Results Laboratory Results: 07/08/18 11:40 07/08/18 17:35 07/10/18 06:20 Magnesium 1.8 07/07/18 07/07/18 07/07/18 12:44 12:44 19:26 CK-MB (CK-2) 1.56 Troponin I < 0.012 < 0.012 NT-Pro-B Natriuret Pep 2530 H 07/08/18 07/08/18 07/09/18 01:18 11:40 06:15 CK-MB (CK-2) 1.88 1.92 Troponin I < 0.012 0.014 NT-Pro-B Natriuret Pep 3370 H 2410 H 07/10/18 06:20 CK-MB (CK-2) Troponin I NT-Pro-B Natriuret Pep 2610 H Impressions: Chest X-Ray 07/09/18 11:30 IMPRESSION: Partial clearing of the pulmonary edema pattern compared to [facility] films Assessment & Plan - Diagnosis (1) Acute exacerbation of congestive heart failure Qualifiers: Heart failure type: unspecified Qualified Code(s): I50.9 - Heart failure, unspecified Is this a current diagnosis for this admission?: Yes Plan: 07/07/2018-patient came in with respiratory distress. She was placed on BiPAP pulse ox are in the 70s when she came to the emergency room. Patient is going to be placed in IMCU. Plan is to continue the BiPAP. Plan to do the regular ABGs. Plan to put a consult for cardiology and nephrology. Start on nebulizer treatments. And check for the echocardiogram. I am going to send to serial cardiac enzymes x3 along with a BNP. Plan to arrange for strict input output chart. GI prophylaxis implemented started on DVT prophylaxis. 07/08/2018-patient pulse ox is a 97% on 4 L. Chest x-ray shows alveolar edema. ABG on 36% oxygen pH is 7.43/PCO2 49/PO2 57.4 oxygen saturation is 90%. Started on Lasix 40 mg p.o. daily. And placed on potassium supplementation 20 mg p.o. d aily. BNP is 2530. Cardiac enzymes negative so far. Echocardiogram was requested report is pending. Follow-up chest x-ray will be done tomorrow. 07/09/2018-pulse ox on 4 L is 100% today. Patient is comfortably in the bed eating her lunch. Follow-up chest x-ray reports are pending. Patient is on Lasix 40 mg p.o. daily, potassium supplementation 40 mg p.o. daily. Latest BNP is 2400. Echocardiogram report is pending. Plan is to continue the present management. 07/10/2018-pulse ox is 92% on 3 L. Patient is comfortably in the bed reading a book. Follow-up chest x-ray and indicates improvement in pulmonary edema. Patient is on Lasix 40 mg p.o. daily. BNP is 2610. I am going to put her on fluid restriction. Echocardiogram done last year indicates normal left ventricular systolic function but moderate diastolic heart failure. (2) Stroke Is this a current diagnosis for this admission?: Yes Plan: 07/07/2018-patient has multiple strokes before, patient walks with the help of a rolling walker. No new neurological problems were noticed by the family. We are going to closely follow the patient on regular basis. 07/08/2018-patient was admitted with multiple strokes as per , patient uses rolling walker at home. Patient neuro status is stable. Managed to continue the present management.07/07/2018-patient has multiple strokes before, patient walks with the help of a rolling walker. No new neurological problems were noticed by the family. We are going to closely follow the patient on regular basis. 07/09/2018-patient was admitted with multiple strokes as per , patient uses rolling walker at home. Patient neuro status is stable. Managed to continue the present management. 07/10/2018-patient has history of multiple strokes she uses a rolling walker at home to move around at home. No acute events in the during the hospital stay. Patient is alert and oriented communicating well. (3) Diabetes 1.5, managed as type 2 Is this a current diagnosis for this admission?: Yes Plan: 07/07/2018-patient has history of diabetes mellitus type 2 she is on metformin 500 mg p.o. twice a day. We are going to put her on a sliding scale while she was in the hospital will be going to withhold metformin. I am going to check her hemoglobin A1c. 07/08/2018 patient has history of diabetes mellitus she is on metformin 500 mg twice a day at home , started on insulin sliding scale. Plan is to check the hemoglobin A1c. Latest blood sugars are 151. Stable. 07/09/2018, patient is on metformin 500 mg p.o. twice daily at home which was on hold presently she is on insulin sliding scale. Latest blood sugar is 185 and hemoglobin A1c is 5.7. Plan is to continue the present management. 07/10/2018-patient's blood sugars are 150 today. Hemoglobin A1c is 5.7. We will continue to provde to the insulin sliding scale. (4) COPD exacerbation Is this a current diagnosis for this admission?: Yes Plan: 07/07/2018-patient has history of COPD not on home oxygen. Going to start her on IV steroids, Xopenex nebulizations ipratropium nebulizations , flutter valve therapy. pt going to put her on a BiPAP on as needed basis. We going to do the follow-up chest x-ray. 07/08/2018 patient has history of COPD not on home oxygen. Pulse ox is 97% on 4 L. Chest x-ray shows pulmonary edema. Presently she is on IV steroids, Xopenex, ipratropium nebulizations. Flutter valve therapy is also requested. She is off the BiPAP right now. plan is to continue the present management. During the hospital stay we will check for the home oxygen requirements. 07/09/2018-patient has history of COPD not on home oxygen here in the hospital pulse ox is 100% on 4 L. Chest x-ray shows pulmonary edema started on Lasix 40 mg daily and follow-up chest x-ray was done today waiting for the results. Patient is on IV steroids, Xopenex, ipratropium nebulizations, flutter valve therapy. Plan is to discontinue IV Solu-Medrol and start on prednisone 10 mg p.o. twice daily twice daily. Patient is not requiring BiPAP anymore. 07/10/2018 patient has history of COPD not on home oxygen here pulse ox is 92% on 3 L. Chest x-ray shows pulmonary edema. Presently she is on p.o. prednisone, Xopenex and ipratropium nebulizations along with flutter valve for therapy. Plan is to continue the present management. (5) Hypothyroidism Is this a current diagnosis for this admission?: Yes (6) Hypertension Is this a current diagnosis for this admission?: Yes Plan: 07/07/2018-patient has history of hypertension she is on eplerenone 50 mg p.o. daily, Cozaar 100 mg p.o. daily furosemide 20 mg p.o. daily and Coreg 12.5 mg p.o. twice a day, nifedipine 60 mg p.o. daily, clonidine 0.2 mg in the morning 0.1 mg in the p.m. and also hydralazine 100 mg p.o. a day . plan is to resume her home medications during the hospital stay. 07/08/2018 patient is on multiple antihypertensive medications. Dr. Alfie Urrutia is managing the blood pressure medications as an outpatient. Blood p ressure today is 118/55. Stable. Plan is to continue the present management. 07/09/2018-patient's blood pressure today is 114/61 well-controlled presently on Cozaar 100 mg daily, furosemide 20 mg p.o. daily, Coreg 12.5 mg p.o. twice a day, nifedipine 60 mg p.o. daily, clonidine 0.2 mg in the morning 0.1 mg the evening. Patient is also on hydralazine 100 mg p.o. daily. In addition to these meds pt is on eplerenone 50 mg po daily plan is to continue the present management. 2018 patient latest blood pressure is 144/94. She is on multiple blood pressure medications. Plan is to continue the present management and check the blood sugars every shift. - Time Time Spent with patient: 15-24 minutes Medications reviewed and adjusted accordingly: Yes Anticipated discharge: Home
[2018-07-10] MEDS: HYDRALAZINE HCL 50 MG TABLET PO SCH ×2 (14:47→22:28)
[2018-07-10] MEDS: DONEPEZIL HCL 5 MG TABLET PO SCH (17:51)
[2018-07-10] MEDS: ESCITALOPRAM OXALATE 10 MG TABLET PO SCH (17:51)
[2018-07-10] MEDS: ATORVASTATIN CALCIUM 20 MG TABLET PO SCH (22:28)
[2018-07-10] MEDS: NIFEDIPINE 30 MG TAB.ER.24 PO SCH (22:28)
[2018-07-10] MEDS: LOSARTAN POTASSIUM 50 MG TABLET PO SCH (22:28)
[2018-07-10] MEDS: ASPIRIN 81 MG TABLET, ENT COATED PO SCH (22:29)
[2018-07-11 04:43] LABS: ABSOLUTE BASOPHILS # (AUTO) 0.1 10^3/uL (0.0-0.2); ABSOLUTE MONOCYTES (AUTO) 0.6 10^3/uL (0.1-1.4); ABSOLUTE NEUT (AUTO) 4.4 10^3/uL (1.7-8.2); BASOPHILS % (AUTO) 0.9 % (0-2); EOSINOPHILS % (AUTO) 0.2 % (0-6); HEMATOCRIT 34.1 % (36.0-47.0); HEMOGLOBIN 11.4 g/dL (12.0-15.5); LYMPHOCYTES % (AUTO) 16.9 % (13-45); MEAN CORPUSCULAR HEMOGLOBIN 30.9 pg (27.0-33.4); MEAN CORPUSCULAR HGB CONC 33.4 g/dL (32.0-36.0); MEAN CORPUSCULAR VOLUME 93 fl (80-97); MONOCYTES % (AUTO) 9.8 % (3-13); PLATELET COUNT 336 10^3/uL (150-450); RED BLOOD COUNT 3.68 10^6/uL (3.72-5.28); RED CELL DISTRIBUTION WIDTH 14.2 % (11.5-14.0); SEGMENTED NEUTROPHILS % (AUTO) 72.2 % (42-78); TOTAL CELLS COUNTED % (AUTO) 100 %; WHITE BLOOD COUNT 6.1 10^3/uL (4.0-10.5)
[2018-07-11 05:11] LABS: ALANINE AMINOTRANSFERASE 50 U/L (9-52); ALBUMIN 3.2 g/dL (3.5-5.0); ALKALINE PHOSPHATASE 89 U/L (38-126); ASPARTATE AMINO TRANSFERASE 67 U/L (14-36); BILIRUBIN,DIRECT 0.2 mg/dL (0.0-0.4); BILIRUBIN,TOTAL 0.3 mg/dL (0.2-1.3); BLOOD UREA NITROGEN 18 mg/dL (7-20); CALCIUM 8.6 mg/dL (8.4-10.2); GLUCOSE 188 mg/dL (75-110); TOTAL PROTEIN 5.4 g/dL (6.3-8.2)
[2018-07-11 05:12] LABS: POTASSIUM 4.5 mmol/L (3.6-5.0)
[2018-07-11 05:22] LABS: CHLORIDE 93 mmol/L (98-107); SODIUM 138.3 mmol/L (137-145)
[2018-07-11 05:36] LABS: ANION GAP 2 (5-19)
[2018-07-11 05:38] LABS: CARBON DIOXIDE 43 mmol/L (22-30)
[2018-07-11] MEDS: HYDRALAZINE HCL 50 MG TABLET PO SCH ×3 (06:29→21:47)
[2018-07-11] MEDS: ROPINIROLE HCL 2 MG TABLET PO SCH ×2 (10:35→18:00)
[2018-07-11] MEDS: EPLERENONE 25 MG TABLET PO SCH (10:35)
[2018-07-11] MEDS: ANASTROZOLE 1 MG TABLET PO SCH (10:35)
[2018-07-11] MEDS: CARVEDILOL 12.5 MG TABLET PO SCH ×2 (10:36→21:48)
[2018-07-11] MEDS: POTASSIUM CHLORIDE 20 MEQ/15 ML UDCUP PO SCH (10:36)
[2018-07-11] MEDS: PREDNISONE 10 MG TABLET PO SCH ×2 (10:36→18:01)
[2018-07-11] MEDS: FUROSEMIDE 40 MG TABLET PO SCH (10:37)
[2018-07-11] MEDS: FAMOTIDINE INJ/PF 20 MG/2 ML SDV IV SCH (10:37)
[2018-07-11] MEDS: CLONIDINE HCL 0.1 MG TABLET PO SCH (10:37)
[2018-07-11] MEDS: LEVOTHYROXINE SODIUM 0.15 MG TABLET PO SCH (10:37)
[2018-07-11] MEDS: CALCIUM CARBONATE 250 MG/VITAMIN D3 125 UNIT TABLET PO SCH (10:37)
[2018-07-11] MEDS: DOCUSATE SODIUM 100 MG CAPSULE PO SCH (10:37)
[2018-07-11] MEDS: ENOXAPARIN SODIUM INJ 40 MG/0.4 ML DISP.SYRIN SUBCUT SCH (10:37)
--- NOTE | 2018-07-11 11:20 | PDOC PROGRESS REPORT ---
Subjective Progress Note for:: 07/11/18 Subjective:: 07/08/2018- 88-year-old female with history of COPD/congestive heart failure, multiple mini strokes hypertension diabetes mellitus right breast cancer status post radiation, chemotherapy and mastectomy came to the emergency room increasing shortness of breath. Chest x-ray shows increasing pulmonary edema. Patient pulse ox is 97% on 4 L. Afebrile. Alert and awake communicating better today. ABG today on 36% oxygen pH 7.43/PCO2 49 PO2 57.4 pulse ox is 90%. 07/09/[id number]-[id number]-old female admitted for shortness of breath. Chest x-ray shows yesterday increased pulmonary edema. Follow-up chest x-ray was done waiting for the official results. Patient pulse oxes 100% on 4 L. Comfortably in the bed eating her lunch. No acute events in the last 24 hours. Afebrile. 07/10/2018 88-year-old female admitted with shortness of breath COPD and chest x- ray shows pulmonary edema follow-up the chest x-ray was done yesterday shows improvement. Patient is comfortably in the bed reading a book. Pulse ox is 92% on 3 L. No acute events in the last 24 hours. Patient is afebrile. Patient says she is fine. The blood pressures are little bit elevated this morning systolic is around 160s. 07/11/[id number]-ffbx-old female admitted with shortness of breath due to COPD exacerbation and chest x-ray shows pulmonary edema follow-up x-ray done on indicate partial clearing of the pulmonary edema I placed for a follow-up chest x-ray today. No acute events in the last 24 hours. Pulse ox is 100% on 1 L. Patient is afebrile comfortably in the bed reading a book denies any complaints. Reason For Visit: RESPIRATORY FAILURE Physical Exam Vital Signs: Temp Pulse Resp BP Pulse Ox 98.4 F 53 L 18 147/44 H 96 07/11/18 05:06 07/11/18 07:00 07/11/18 05:06 07/11/18 05:06 07/11/18 05:06 Intake & Output 07/10/18 07/11/18 07/12/18 06:59 06:59 06:59 Intake Total 1475 1800 Output Total 3450 2400 Balance -1975 -600 Weight 66.5 kg 64 kg General appearance: PRESENT: no acute distress Head exam: PRESENT: atraumatic Eye exam: PRESENT: PERRLA Mouth exam: PRESENT: moist, tongue midline Neck exam: ABSENT: carotid bruit, JVD, lymphadenopathy, thyromegaly Respiratory exam: PRESENT: decreased breath sounds Cardiovascular exam: PRESENT: systolic murmur, tachycardia GI/Abdominal exam: PRESENT: normal bowel sounds, soft. ABSENT: distended, guarding, mass, organolmegaly, rebound, tenderness Extremities exam: PRESENT: full ROM. ABSENT: calf tenderness, clubbing, pedal edema Neurological exam: PRESENT: alert, awake, oriented to person, oriented to place, oriented to time, oriented to situation, CN II-XII grossly intact. ABSENT: motor sensory deficit Psychiatric exam: PRESENT: appropriate affect, normal mood. ABSENT: homicidal ideation, suicidal ideation Results Laboratory Results: 07/11/18 04:14 07/11/18 04:14 07/11/18 07/11/18 04:14 04:14 WBC 6.1 RBC 3.68 L Hgb 11.4 L Hct 34.1 L MCV 93 MCH 30.9 MCHC 33.4 RDW 14.2 H Plt Count 336 Seg Neutrophils % 72.2 Lymphocytes % 16.9 Monocytes % 9.8 Eosinophils % 0.2 Basophils % 0.9 Absolute Neutrophils 4.4 Absolute Lymphocytes 1.0 Absolute Monocytes 0.6 Absolute Eosinophils 0.0 Absolute Basophils 0.1 Sodium 138.3 Potassium 4.5 Chloride 93 L Carbon Dioxide 43 H* Anion Gap 2 L BUN 18 Creatinine 0.52 Est GFR ( Amer) > 60 Est GFR (Non-Af Amer) > 60 Glucose 188 H Calcium 8.6 Magnesium 1.9 Total Bilirubin 0.3 AST 67 H ALT 50 Alkaline Phosphatase 89 Total Protein 5.4 L Albumin 3.2 L 07/07/18 07/07/18 07/07/18 12:44 12:44 19:26 CK-MB (CK-2) 1.56 Troponin I < 0.012 < 0.012 NT-Pro-B Natriuret Pep 2530 H 07/08/18 07/08/18 07/09/18 01:18 11:40 06:15 CK-MB (CK-2) 1.88 1.92 Troponin I < 0.012 0.014 NT-Pro-B Natriuret Pep 3370 H 2410 H 07/10/18 07/11/18 06:20 04:14 CK-MB (CK-2) Troponin I NT-Pro-B Natriuret Pep 2610 H 1350 H Impressions: Chest X-Ray 07/09/18 11:30 IMPRESSION: Partial clearing of the pulmonary edema pattern compared to yesterday's films Assessment & Plan - Diagnosis (1) Acute exacerbation of congestive heart failure Qualifiers: Heart failure type: unspecified Qualified Code(s): I50.9 - Heart failure, unspecified Is this a current diagnosis for this admission?: Yes Plan: 07/07/2018-patient came in with respiratory distress. She was placed on BiPAP pulse ox are in the 70s when she came to the emergency room. Patient is going to be placed in IMCU. Plan is to continue the BiPAP. Plan to do the regular ABGs. Plan to put a consult for cardiology and nephrology. Start on nebulizer treatments. And check for the echocardiogram. I am going to send to serial cardiac enzymes x3 along with a BNP. Plan to arrange for strict input output chart. GI prophylaxis implemented started on DVT prophylaxis. 07/08/2018-patient pulse ox is a 97% on 4 L. Chest x-ray shows alveolar edema. ABG on 36% oxygen pH is 7.43/PCO2 49/PO2 57.4 oxygen saturation is 90%. Started on Lasix 40 mg p.o. daily. And placed on potassium supplementation 20 mg p.o. daily. BNP is 2530. Cardiac enzymes negative so far. Echocardiogram was requested report is pending. Follow-up chest x-ray will be done tomorrow. 07/09/2018-pulse ox on 4 L is 100% today. Patient is comfortably in the bed eating her lunch. Follow-up chest x-ray reports are pending. Patient is on Lasix 40 mg p.o. daily, potassium supplementation 40 mg p.o. daily. Latest BNP is 2400. Echocardiogram report is pending. Plan is to continue the present management. 07/10/2018-pulse ox is 92% on 3 L. Patient is comfortably in the bed reading a book. Follow-up chest x-ray and indicates improvement in pulmonary edema. Patient is on Lasix 40 mg p.o. daily. BNP is 2610. I am going to put her on fluid restriction. Echocardiogram done last year indicates normal left ventricular systolic function but moderate diastolic heart failure. 07/11/2018-today pulse ox is 100% on 1 L nasal cannula. Follow-up chest x-ray indicating partial clearing of the edema. Repeat chest x-ray was requested today. Latest BNP is 1350. Coming down. Patient is comfortably in the bed not in distress. Chest examination bilateral entry was severely decreased few crackles and crepitations at the bases. Patient has chronic diastolic heart failure. (2) Stroke Is this a current diagnosis for this admission?: Yes Plan: 07/07/2018-patient has multiple strokes before, patient walks with the help of a rolling walker. No new neurological problems were noticed by the family. We are going to closely follow the patient on regular basis. 07/08/2018-patient was admitted with multiple strokes as per , patient uses rolling walker at home. Patient neuro status is stable. Managed to continue the present management.07/07/2018-patient has multiple strokes before, patient walks with the help of a rolling walker. No new neurological problems were noticed by the family. We are going to closely follow the patient on regular basis. 07/09/2018-patient was admitted with multiple strokes as per , patient uses rolling walker at home. Patient neuro status is stable. Managed to continue the present management. 07/10/2018-patient has history of multiple strokes she uses a rolling walker at home to move around at home. No acute events in the during the hospital stay. Patient is alert and oriented communicating well. 07/11/2018 patient has history of multiple strokes. But she is alert and awake oriented. No new focal neurological deficits. (3) Diabetes 1.5, managed as type 2 Is this a current diagnosis for this admission?: Yes Plan: 07/07/2018-patient has history of diabetes mellitus type 2 she is on metformin 500 mg p.o. twice a day. We are going to put her on a sliding scale while she w as in the hospital will be going to withhold metformin. I am going to check her hemoglobin A1c. 07/08/2018 patient has history of diabetes mellitus she is on metformin 500 mg twice a day at home , started on insulin sliding scale. Plan is to check the hemoglobin A1c. Latest blood sugars are 151. Stable. 07/09/2018, patient is on metformin 500 mg p.o. twice daily at home which was on hold presently she is on insulin sliding scale. Latest blood sugar is 185 and hemoglobin A1c is 5.7. Plan is to continue the present management. 07/10/2018-patient's blood sugars are 150 today. Hemoglobin A1c is 5.7. We will continue to provide to the insulin sliding scale. 07/11/2018-latest blood sugar is 166. Hemoglobin A1c is 5.7 patient is on insulin sliding scale. Plan is to continue the present management. (4) COPD exacerbation Is this a current diagnosis for this admission?: Yes Plan: 07/07/2018-patient has history of COPD not on home oxygen. Going to start her on IV steroids, Xopenex nebulizations ipratropium nebulizations , flutter valve therapy. pt going to put her on a BiPAP on as needed basis. We going to do the follow-up chest x-ray. 07/08/2018 patient has history of COPD not on home oxygen. Pulse ox is 97% on 4 L. Chest x-ray shows pulmonary edema. Presently she is on IV steroids, Xopenex, ipratropium nebulizations. Flutter valve therapy is also requested. She is off the BiPAP right now. plan is to continue the present management. During the hospital stay we will check for the home oxygen requirements. 07/09/2018-patient has history of COPD not on home oxygen here in the hospital pulse ox is 100% on 4 L. Chest x-ray shows pulmonary edema started on Lasix 40 mg daily and follow-up chest x-ray was done today waiting for the results. Patient is on IV steroids, Xopenex, ipratropium nebulizations, flutter valve therapy. Plan is to discontinue IV Solu-Medrol and start on prednisone 10 mg p. o. twice daily twice daily. Patient is not requiring BiPAP anymore. 07/10/2018 patient has history of COPD not on home oxygen here pulse ox is 92% on 3 L. Chest x-ray shows pulmonary edema. Presently she is on p.o. prednisone, Xopenex and ipratropium nebulizations along with flutter valve for therapy. Plan is to continue the present management. 07/11/2018-patient has history of COPD not on home oxygen. Today pulse ox is 100% on 1 L. Presently she is on prednisone 10 mg p.o. twice daily, Xopenex and ipratropium nebulizations. She is also receiving flutter valve therapy. (5) Hypothyroidism Is this a current diagnosis for this admission?: Yes Plan: 07/07/2018-patient has history of hypothyroidism she is on Synthyroid 150 mcg p.o. daily at home we plan to resume the medication here. 07/08/2018 patient has history of hypothyroidism, she is on Synthroid 150 mcg p.o. daily. Plan is to check her TSH levels tomorrow morning. 07/09/2018-patient has history of hypothyroidism on Synthroid 150 mcg p.o. daily TSH is 2.33 within the therapeutic range plan is to continue the present dose of Synthyroid. (6) Hypertension Is this a current diagnosis for this admission?: Yes Plan: 07/07/2018-patient has history of hypertension she is on eplerenone 50 mg p.o. daily, Cozaar 100 mg p.o. daily furosemide 20 mg p.o. daily and Coreg 12.5 mg p.o. twice a day, nifedipine 60 mg p.o. daily, clonidine 0.2 mg in the morning 0.1 mg in the p.m. and also hydralazine 100 mg p.o. a day . plan is to resume her home medications during the hospital stay. 07/08/2018 patient is on multiple antihypertensive medications. Dr. Alfie Urrutia is managing the blood pressure medications as an outpatient. Blood pressure today is 118/55. Stable. Plan is to continue the present management. 07/09/2018-patient's blood pressure today is 114/61 well-controlled presently on Cozaar 100 mg daily, furosemide 20 mg p.o. daily, Coreg 12.5 mg p.o. twice a day, nifedipine 60 mg p.o. daily, clonidine 0.2 mg in the morning 0.1 mg the evening. Patient is also on hydralazine 100 mg p.o. daily. In addition to these meds pt is on eplerenone 50 mg po daily plan is to continue the present management. 07/10/2018 patient latest blood pressure is 144/94. She is on multiple blood p ressure medications. Plan is to continue the present management and check the blood sugars every shift. 07/11/2018-patient blood pressure is 147/44. Presently she is on Cozaar 100 mg p.o. daily, furosemide 40 mg daily, Coreg 12.5 mg p.o. twice a day, nifedipine 60 mg p.o. daily, clonidine 0.2 mg in the morning and 0.1 mg in the evening. She is also receiving 100 mg p.o. daily along with Char unknown 50 mg p.o. daily. Plan is to continue the present management. - Time Time Spent with patient: 15-24 minutes Medications reviewed and adjusted accordingly: Yes Anticipated discharge: Home
[2018-07-11] MEDS: INSULIN REG, HUMAN 100 UNIT/ML 3 ML VIAL (PYX) SUBCUT PRN ×2 (13:25→21:51)
--- NOTE | 2018-07-11 14:36 | RADIOLOGY REPORT (SQ) ---
EXAM DESCRIPTION: CHEST SINGLE VIEW COMPLETED DATE/TIME: 07/11/2018 1:12 pm REASON FOR STUDY: pul edema COMPARISON: 07/09/2018. EXAM PARAMETERS: NUMBER OF VIEWS: One view. TECHNIQUE: Single frontal radiographic view of the chest acquired. RADIATION DOSE: NA LIMITATIONS: None. FINDINGS: LUNGS AND PLEURA: Low lung volumes. No opacities, masses or pneumothorax. No pleural effu alon. MEDIASTINUM AND HILAR STRUCTURES: No masses. Contour normal. HEART AND VASCULAR STRUCTURES: Stable mild cardiomegaly. Mild vascular congestion. BONES: No acute findings. HARDWARE: Surgical clips. OTHER: No other significant finding. IMPRESSION: MILD CARDIOMEGALY. MILD VASCULAR CONGESTION WHICH HAS IMPROVED SLIGHTLY. TECHNICAL DOCUMENTATION: JOB ID: [id number] [employer]- All Rights Reserved Reading location - IP/workstation name: [email or web address]
[2018-07-11] MEDS: ESCITALOPRAM OXALATE 10 MG TABLET PO SCH (18:01)
[2018-07-11] MEDS: DONEPEZIL HCL 5 MG TABLET PO SCH (18:01)
[2018-07-11] MEDS: ASPIRIN 81 MG TABLET, ENT COATED PO SCH (21:48)
[2018-07-11] MEDS: LOSARTAN POTASSIUM 50 MG TABLET PO SCH (21:48)
[2018-07-11] MEDS: FAMOTIDINE 20 MG TABLET PO SCH (21:48)
[2018-07-11] MEDS: ATORVASTATIN CALCIUM 20 MG TABLET PO SCH (21:48)
[2018-07-11] MEDS: NIFEDIPINE 30 MG TAB.ER.24 PO SCH (21:48)
[2018-07-12] MEDS: HYDRALAZINE HCL 50 MG TABLET PO SCH ×2 (05:09→13:41)
[2018-07-12 06:29] LABS: ABSOLUTE BASOPHILS # (AUTO) 0.1 10^3/uL (0.0-0.2); ABSOLUTE LYMPHOCYTES (AUTO) 1.2 10^3/uL (0.5-4.7); ABSOLUTE MONOCYTES (AUTO) 0.8 10^3/uL (0.1-1.4); ABSOLUTE NEUT (AUTO) 5.6 10^3/uL (1.7-8.2); BASOPHILS % (AUTO) 1.1 % (0-2); EOSINOPHILS % (AUTO) 0.3 % (0-6); HEMATOCRIT 36.1 % (36.0-47.0); HEMOGLOBIN 12.1 g/dL (12.0-15.5); MEAN CORPUSCULAR HGB CONC 33.6 g/dL (32.0-36.0); MEAN CORPUSCULAR VOLUME 92 fl (80-97); PLATELET COUNT 407 10^3/uL (150-450); RED BLOOD COUNT 3.92 10^6/uL (3.72-5.28); RED CELL DISTRIBUTION WIDTH 14.3 % (11.5-14.0); SEGMENTED NEUTROPHILS % (AUTO) 72.6 % (42-78); TOTAL CELLS COUNTED % (AUTO) 100 %; WHITE BLOOD COUNT 7.7 10^3/uL (4.0-10.5)
[2018-07-12 06:47] LABS: ALANINE AMINOTRANSFERASE 48 U/L (9-52); ALBUMIN 3.6 g/dL (3.5-5.0); ALKALINE PHOSPHATASE 118 U/L (38-126); ANION GAP 6 (5-19); ASPARTATE AMINO TRANSFERASE 57 U/L (14-36); BILIRUBIN,DIRECT 0.2 mg/dL (0.0-0.4); BILIRUBIN,TOTAL 0.4 mg/dL (0.2-1.3); BLOOD UREA NITROGEN 21 mg/dL (7-20); CALCIUM 9.4 mg/dL (8.4-10.2); CARBON DIOXIDE 36 mmol/L (22-30); CHLORIDE 96 mmol/L (98-107); GLUCOSE 176 mg/dL (75-110); POTASSIUM 4.2 mmol/L (3.6-5.0); SODIUM 138.4 mmol/L (137-145)
[2018-07-12] MEDS: POTASSIUM CHLORIDE 20 MEQ/15 ML UDCUP PO SCH (10:31)
[2018-07-12] MEDS: PREDNISONE 10 MG TABLET PO SCH (10:31)
[2018-07-12] MEDS: ENOXAPARIN SODIUM INJ 40 MG/0.4 ML DISP.SYRIN SUBCUT SCH (10:31)
[2018-07-12] MEDS: DOCUSATE SODIUM 100 MG CAPSULE PO SCH (10:32)
[2018-07-12] MEDS: CALCIUM CARBONATE 250 MG/VITAMIN D3 125 UNIT TABLET PO SCH (10:32)
[2018-07-12] MEDS: FUROSEMIDE 40 MG TABLET PO SCH (10:32)
[2018-07-12] MEDS: CLONIDINE HCL 0.1 MG TABLET PO SCH (10:33)
[2018-07-12] MEDS: LEVOTHYROXINE SODIUM 0.15 MG TABLET PO SCH (10:33)
[2018-07-12] MEDS: CARVEDILOL 12.5 MG TABLET PO SCH (10:33)
[2018-07-12] MEDS: FAMOTIDINE 20 MG TABLET PO SCH (10:33)
[2018-07-12] MEDS: EPLERENONE 25 MG TABLET PO SCH (10:34)
[2018-07-12] MEDS: ROPINIROLE HCL 2 MG TABLET PO SCH (10:35)
[2018-07-12] MEDS: ANASTROZOLE 1 MG TABLET PO SCH (10:36)
[2018-07-12] MEDS ORDERED: INSULIN REG, HUMAN 100 UNIT/ML 3 ML VIAL (PYX) SUBCUT SCH (12:00)
--- NOTE | 2018-07-12 14:22 | PDOC DISCHARGE SUMMARY ---
General - Admit/Disc Date/PCP Admission Date/Primary Care Provider: 07/07/18 15:28 CORAZON CARRION PA-C Discharge Date: 07/12/18 - Discharge Diagnosis (1) Acute exacerbation of congestive heart failure Is this a current diagnosis for this admission?: Yes Summary: 07/07/2018-patient came in with respiratory distress. She was placed on BiPAP pulse ox are in the 70s when she came to the emergency room. Patient is going to be placed in IMCU. Plan is to continue the BiPAP. Plan to do the regular ABGs. Plan to put a consult for cardiology and nephrology. Start on nebulizer treatments. And check for the echocardiogram. I am going to send to serial cardiac enzymes x3 along with a BNP. Plan to arrange for strict input output chart. GI prophylaxis implemented started on DVT prophylaxis. 07/08/2018-patient pulse ox is a 97% on 4 L. Chest x-ray shows alveolar edema. ABG on 36% oxygen pH is 7.43/PCO2 49/PO2 57.4 oxygen saturation is 90%. Started on Lasix 40 mg p.o. daily. And placed on potassium supplementation 20 mg p.o. daily. BNP is 2530. Cardiac enzymes negative so far. Echocardiogram was requested report is pending. Follow-up chest x-ray will be done tomorrow. 07/09/2018-pulse ox on 4 L is 100% today. Patient is comfortably in the bed eating her lunch. Follow-up chest x-ray reports are pending. Patient is on Lasix 40 mg p.o. daily, potassium supplementation 40 mg p.o. daily. Latest BNP is 2400. Echocardiogram report is pending. Plan is to continue the present management. 07/10/2018-pulse ox is 92% on 3 L. Patient is comfortably in the bed reading a book. Follow-up chest x-ray and indicates improvement in pulmonary edema. Patient is on Lasix 40 mg p.o. daily. BNP is 2610. I am going to put her on fluid restriction. Echocardiogram done last year indicates normal left ventricular systolic function but moderate diastolic heart failure. 07/11/2018-today pulse ox is 100% on 1 L nasal cannula. Follow-up chest x-ray indicating partial clearing of the edema. Repeat chest x-ray was requested today. Latest BNP is 1350. Coming down. Patient is comfortably in the bed not in distress. Chest examination bilateral entry was severely decreased few crackles and crepitations at the bases. Patient has chronic diastolic heart failure. 07/12/2018-patient was admitted with acute exacerbation of congestive heart failure. Initial BNP was 2530. With the Lasix it was improved to 575 today. Follow-up chest x-rays indicating clearing of the pulmonary edema. Echocardiogram that was done last year indicates normal left ventricular systoli c function but moderate diastolic heart failure. So she has a chronic diastolic heart failure. On examination comfortably in the bed not in distress pulse ox is 96% on 2 L. Patient agreed to go home today. (2) Stroke Is this a current diagnosis for this admission?: Yes Summary: 07/07/2018-patient has multiple strokes before, patient walks with the help of a rolling walker. No new neurological problems were noticed by the family. We are going to closely follow the patient on regular basis. 07/08/2018-patient was admitted with multiple strokes as per , patient uses rolling walker at home. Patient neuro status is stable. Managed to continue the present management.07/07/2018-patient has multiple strokes before, p atient walks with the help of a rolling walker. No new neurological problems were noticed by the family. We are going to closely follow the patient on regular basis. 07/09/2018-patient was admitted with multiple strokes as per , patient uses rolling walker at home. Patient neuro status is stable. Managed to continue the present management. 07/10/2018-patient has history of multiple strokes she uses a rolling walker at home to move around at home. No acute events in the during the hospital stay. Patient is alert and oriented communicating well. 07/11/2018 patient has history of multiple strokes. But she is alert and awake oriented. No new focal neurological deficits. 07/12/2018 patient has history of multiple strokes she walks with a rolling walker at home. No complications during the hospital stay. She is alert and oriented communicating very well. No problem with swallowing. (3) Diabetes 1.5, managed as type 2 Is this a current diagnosis for this admission?: Yes Summary: 07/07/2018-patient has history of diabetes mellitus type 2 she is on metformin 500 mg p.o. twice a day. We are going to put her on a sliding scale while she was in the hospital will be going to withhold metformin. I am going to check her hemoglobin A1c. 07/08/2018 patient has history of diabetes mellitus she is on metformin 500 mg twice a day at home , started on insulin sliding scale. Plan is to check the hemoglobin A1c. Latest blood sugars are 151. Stable. 07/09/2018, patient is on metformin 500 mg p.o. twice daily at home which was on hold presently she is on insulin sliding scale. Latest blood sugar is 185 and hemoglobin A1c is 5.7. Plan is to continue the present management. 07/10/2018-patient's blood sugars are 150 today. Hemoglobin A1c is 5.7. We will continue to provide to the insulin sliding scale. 07/11/2018-latest blood sugar is 166. Hemoglobin A1c is 5.7 patient is on insulin sliding scale. Plan is to continue the present management. 07/12/2018 latest blood sugar is 240. Hemoglobin A1c is 5.7 she is on insulin sliding scale here in the hospital she is also on metformin 500 mg p.o. twice daily at home advised her to continue her home medication. (4) COPD exacerbation Is this a current diagnosis for this admission?: Yes Summary: 07/07/2018-patient has history of COPD not on home oxygen. Going to start her on IV steroids, Xopenex nebulizations ipratropium nebulizations , flutter valve therapy. pt going to put her on a BiPAP on as needed basis. We going to do the follow-up chest x-ray. 07/08/2018 patient has history of COPD not on home oxygen. Pulse ox is 97% on 4 L. Chest x-ray shows pulmonary edema. Presently she is on IV steroids, Xopenex, ipratropium nebulizations. Flutter valve therapy is also requested. She is off the BiPAP right now. plan is to continue the present management. During the hospital stay we will check for the home oxygen requirements. 07/09/2018-patient has history of COPD not on home oxygen here in the hospital pulse ox is 100% on 4 L. Chest x-ray shows pulmonary edema started on Lasix 40 mg daily and follow-up chest x-ray was done today waiting for the results. Ritu ent is on IV steroids, Xopenex, ipratropium nebulizations, flutter valve therapy. Plan is to discontinue IV Solu-Medrol and start on prednisone 10 mg p.o. twice daily twice daily. Patient is not requiring BiPAP anymore. 07/10/2018 patient has history of COPD not on home oxygen here pulse ox is 92% on 3 L. Chest x-ray shows pulmonary edema. Presently she is on p.o. prednisone, Xopenex and ipratropium nebulizations along with flutter valve for therapy. Plan is to continue the present management. 07/11/2018-patient has history of COPD not on home oxygen. Today pulse ox is 100% on 1 L. Presently she is on prednisone 10 mg p.o. twice daily, Xopenex and ipratropium nebulizations. She is also receiving flutter valve therapy. 07/12/2018 patient has history of COPD not on home oxygen pulse ox today is 100% on 1.5 L. She was treated with prednisone, Xopenex nebulizations, ipratropium nebulizers during the hospital stay. (5) Hypothyroidism Is this a current diagnosis for this admission?: Yes (6) Hypertension Is this a current diagnosis for this admission?: Yes Summary: 07/07/2018-patient has history of hypertension she is on eplerenone 50 mg p.o. daily, Cozaar 100 mg p.o. daily furosemide 20 mg p.o. daily and Coreg 12.5 mg p.o. twice a day, nifedipine 60 mg p.o. daily, clonidine 0.2 mg in the morning 0.1 mg in the p.m. and also hydralazine 100 mg p.o. a day . plan is to resume her home medications during the hospital stay. 07/08/2018 patient is on multiple antihypertensive medications. Dr. Alfie Urrutia is managing the blood pressure medications as an outpatient. Blood pressure today is 118/55. Stable. Plan is to continue the present management. 07/09/2018-patient's blood pressure today is 114/61 well-controlled presently on Cozaar 100 mg daily, furosemide 20 mg p.o. daily, Coreg 12.5 mg p.o. twice a day, nifedipine 60 mg p.o. daily, clonidine 0.2 mg in the morning 0.1 mg the evening. Patient is also on hydralazine 100 mg p.o. daily. In addition to t hese meds pt is on eplerenone 50 mg po daily plan is to continue the present management. 07/10/2018 patient latest blood pressure is 144/94. She is on multiple blood pressure medications. Plan is to continue the present management and check the blood sugars every shift. 07/11/2018-patient blood pressure is 147/44. Presently she is on Cozaar 100 mg p.o. daily, furosemide 40 mg daily, Coreg 12.5 mg p.o. twice a day, nifedipine 60 mg p.o. daily, clonidine 0.2 mg in the morning and 0.1 mg in the evening. She is also receiving 100 mg p.o. daily along with September unknown 50 mg p.o. daily. Plan is to continue the present management. 07/12/2018-patient's blood pressure is 114/76 well-controlled today. Patient is on several blood pressure medications. She is follows with Dr. Alfie Urrutia as an outpatient for blood pressure management. Patient and was strongly advised to follow-up with Dr. Urrutia in 3-5 days. - Additional Information Resuscitation Status: Do Not Resuscitate Discharge Diet: As Tolerated, Cardiac, Diabetic Discharge Activity: Activity As Tolerated, Balance Activity w/Rest, Weigh Daily Home Medications: Aspirin [Aspirin EC] 81 mg PO QHS 03/01/18 Atorvastatin Calcium [Lipitor 20 mg Tablet] 20 mg PO QHS 03/01/18 Carvedilol [Coreg 12.5 mg Tablet] 12.5 mg PO Q12 03/01/18 Eplerenone [Inspra] 50 mg PO DAILY 03/01/18 Escitalopram Oxalate [Lexapro] 20 mg PO QPM 03/01/18 Calcium Carbonate/Vitamin D3 [Oyster Shell 500-Vit D3 200 Tb] 1 each PO DAILY 05/18/18 Clonidine HCl [Catapres] 0.1 mg PO DAILY 05/18/18 Furosemide [Lasix 20 mg Tablet] 20 mg PO QAM 05/18/18 Hydralazine HCl [Apresoline 25 mg Tablet] 100 mg PO TID 05/18/18 Levothyroxine Sodium [Synthroid 0.15 mg Tablet] 0.15 mg PO DAILY 05/18/18 Losartan Potassium [Cozaar 100 mg Tablet] 100 mg PO QHS 05/18/18 Magnesium Oxide [Mag-Ox 400 mg Tablet] 400 mg PO DAILY 05/18/18 Metformin HCl 500 mg PO BID 05/18/18 Nifedipine [Nifedipine ER] 60 mg PO QHS 05/18/18 Omeprazole Magnesium [Prilosec Otc] 20 mg PO QHS 05/18/18 Ropinirole HCl [Requip] 2 mg PO BID 05/18/18 Acetaminophen [Tylenol 325 mg Tablet] 650 mg PO Q4HP PRN tablet 05/20/18 Docusate Sodium [Colace 100 mg Capsule] 100 mg PO DAILY capsule 05/20/18 Donepezil HCl [Aricept] 10 mg PO QPM 07/07/18 Anastrozole [Arimidex 1 mg Tablet] 1 mg PO DAILY tablet 07/12/18 Carvedilol [Coreg 12.5 mg Tablet] 25 mg PO Q12 tablet 07/12/18 Donepezil HCl [Aricept 5 mg Tablet] 10 mg PO QPM tablet 07/12/18 History of Present Illness History of Present Illness: SANDY URRUTIA is a 88 year old female 88-year-old female with history of COPD/congestive heart failure history of linda juarez hypertension hyperlipidemia diabetes mellitus right breast cancer status post radiation chemotherapy and mastectomy brought to the emergency room with increased shortness of breath. is providing history. Patient is having the shortness of breath on and off for several months it is getting worse from this morning she has a difficulty in breathing this morning patient is family decided to bring her to the hospital for further evaluation. As per the family no history of cold cough fever no nausea no vomiting no diarrhea no chest pains. He is not on oxygen at home patient is ex- smoker. The emergency room patient was placed on BiPAP and chest x-ray does not show any fluid overload ABG shows PCO2 42 and medical consult was called for admission. Went to the ER evaluated the patient spoke to extensively he is telling me the patient has a living will she is a DNR/DNI. Physical Exam Vital Signs: Temp Pulse Resp BP Pulse Ox 98.1 F 68 20 114/76 90 L 07/12/18 07:28 07/12/18 07:28 07/12/18 07:28 07/12/18 07:28 07/12/18 07:28 Intake & Output 07/11/18 07/12/18 07/13/18 06:59 06:59 06:59 Intake Total 1800 2400 Output Total 2400 Balance -600 2400 Weight 64 kg 63.6 kg General appearance: PRESENT: no acute distress Eye exam: PRESENT: PERRLA Mouth exam: PRESENT: dry mucosa Neck exam: ABSENT: carotid bruit, JVD, lymphadenopathy, thyromegaly Respiratory exam: PRESENT: decreased breath sounds Cardiovascular exam: PRESENT: systolic murmur, tachycardia GI/Abdominal exam: PRESENT: normal bowel sounds, soft. ABSENT: distended, guarding, mass, organolmegaly, rebound, tenderness Neurological exam: PRESENT: alert, awake, oriented to person, oriented to place, oriented to time, oriented to situation, CN II-XII grossly intact. ABSENT: motor sensory deficit Results Laboratory Results: 07/12/18 05:33 07/12/18 05:33 07/12/18 07/12/18 05:33 05:33 WBC 7.7 RBC 3.92 Hgb 12.1 Hct 36.1 MCV 92 MCH 31.0 MCHC 33.6 RDW 14.3 H Plt Count 407 Seg Neutrophils % 72.6 Lymphocytes % 16.0 Monocytes % 10.0 Eosinophils % 0.3 Basophils % 1.1 Absolute Neutrophils 5.6 Absolute Lymphocytes 1.2 Absolute Monocytes 0.8 Absolute Eosinophils 0.0 Absolute Basophils 0.1 Sodium 138.4 Potassium 4.2 Chloride 96 L Carbon Dioxide 36 H Anion Gap 6 BUN 21 H Creatinine 0.57 Est GFR ( Amer) > 60 Est GFR (Non-Af Amer) > 60 Glucose 176 H Calcium 9.4 Magnesium 1.9 Total Bilirubin 0.4 AST 57 H ALT 48 Alkaline Phosphatase 118 Total Protein 6.0 L Albumin 3.6 07/07/18 07/07/18 07/07/18 12:44 12:44 19:26 CK-MB (CK-2) 1.56 Troponin I < 0.012 < 0.012 NT-Pro-B Natriuret Pep 2530 H 07/08/18 07/08/18 07/09/18 01:18 11:40 06:15 CK-MB (CK-2) 1.88 1.92 Troponin I < 0.012 0.014 NT-Pro-B Natriuret Pep 3370 H 2410 H 07/10/18 07/11/18 07/12/18 06:20 04:14 05:33 CK-MB (CK-2) Troponin I NT-Pro-B Natriuret Pep 2610 H 1350 H 575 H Impressions: Chest X-Ray 07/11/18 00:00 IMPRESSION: MILD CARDIOMEGALY. MILD VASCULAR CONGESTION WHICH HAS IMPROVED SLIGHTLY. Qualifiers - * PATIENT BEING DISCHARGED WITH ANY OF THE FOLLOWING DIAGNOSIS: No VTE patient discharged on overlapping Therapy?: No
[2018-07-12 15:30] VITALS: BP 128/42
== END 2018-07-12 16:25 | disposition home or self-care (01) | DRG 292 ==
LOC: ER 12:58 → EH 15:28 → 3S 23:40
PROVIDERS: ADMIT Internal Medicine; ATTEND Internal Medicine
PROC: 5A09457 Assistance with Respiratory Ventilation, 24-96 Consecutive Hours, Continuous Positive Airway Pressure (ICD-10-PCS; principal; 2018-07-07)
DX: I11.0 Hypertensive heart disease with heart failure (principal); J44.1 Chronic obstructive pulmonary disease with (acute) exacerbation; I50.33 Acute on chronic diastolic (congestive) heart failure; I50.9 Heart failure, unspecified; E78.5 Hyperlipidemia, unspecified; E11.9 Type 2 diabetes mellitus without complications; Z66 Do not resuscitate; E03.9 Hypothyroidism, unspecified; M47.812 Spondylosis without myelopathy or radiculopathy, cervical region; F03.90 Unspecified dementia, unspecified severity, without behavioral disturbance, psychotic disturbance, mood disturbance, and anxiety; D64.9 Anemia, unspecified; Z85.3 Personal history of malignant neoplasm of breast; Z92.3 Personal history of irradiation; Z92.21 Personal history of antineoplastic chemotherapy; Z86.73 Personal history of transient ischemic attack (TIA), and cerebral infarction without residual deficits; Z90.49 Acquired absence of other specified parts of digestive tract; Z90.11 Acquired absence of right breast and nipple; Z79.82 Long term (current) use of aspirin; Z79.899 Other long term (current) drug therapy; Z82.49 Family history of ischemic heart disease and other diseases of the circulatory system; Z79.890 Hormone replacement therapy; Z79.84 Long term (current) use of oral hypoglycemic drugs
CPT/HCPCS: 36415; 36600; 71045; 80053; 80061; 80307; 81001; 82553; 82803; 82947; 82962; 83036; 83735; 83880; 84443; 84484; 85025; 93005; 93010; 94640; 94660; 96374; 96375; 99291; J1650; J1815; J1940; J2920; J2930; J3490; J7512; J7620; S0028

== ENCOUNTER 2019-01-14 03:07 | Inpatient (IN) | payer MEDICARE, OTHER ==
--- NOTE | 2019-01-14 03:30 | ER Document Report ---
ED General - General Stated Complaint: FALL Time Seen by Provider: 01/14/19 03:14 Primary Care Provider: UDAY NUNEZ MD [ACTIVE STAFF] - Follow up as needed Notes: Patient is an 88-year-old female that comes emergency department for chief c omplaint of fall. She comes by EMS. states that she had accidentally stretched out her arms away from her with her walker and he was trying to help her get the walker back close to her body when they lost balance and she fell to the ground. However he also states that she has been incredibly weak. She just had an iron infusion and he states that did not seem to help. Patient was found to be hypotensive initially by EMS, she was given 400 mL's of normal saline, she was not hypotensive on arrival. Patient denies chest pain, headache, or any current complaints. She has bruising to the left side of her forehead and over the left elbow area. Patient and fever/chills. She is on aspirin but no other blood thinners. Past medical history includes hypertension, CHF, COPD, hypothyroidism. TRAVEL OUTSIDE OF THE [place] IN LAST 30 DAYS: No - Related Data Allergies/Adverse Reactions: diazepam [From Valium] Allergy (Verified 05/18/18 04:54) Past Medical History - General Information source: Patient, Relative - Social History Smoking Status: Former Smoker Frequency of alcohol use: None Drug Abuse: None Lives with: Family Family History: CAD, Hypertension - Past Medical History Cardiac Medical History: Reports: Hx Congestive Heart Failure, Hx Hypercholesterolemia, Hx Hypertension Denies: Hx Coronary Artery Disease, Hx Heart Attack Pulmonary Medical History: Reports: Hx COPD, Hx Pneumonia Denies: Hx Asthma, Hx Bronchitis, Hx Tuberculosis Neurological Medical History: Reports: Hx Cerebrovascular Accident. 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 Denies: Hx Hysterectomy - Immunizations Hx Diphtheria, Pertussis, Tetanus Vaccination: Yes Hx Pneumococcal Vaccination: 06/14/12 Review of Systems - Review of Systems Constitutional: See HPI EENT: No symptoms reported Cardiovascular: See HPI Respiratory: No symptoms reported Gastrointestinal: No symptoms reported Genitourinary: No symptoms reported Female Genitourinary: No symptoms reported Musculoskeletal: See HPI Skin: No symptoms reported Hematologic/Lymphatic: No symptoms reported Neurological/Psychological: See HPI Physical Exam - Vital signs Vitals: Resp Pulse Ox 17 92 01/14/19 03:14 01/14/19 03:14 - Notes Notes: GENERAL: Somewhat probably chronically ill-appearing and weak HEAD: Normocephalic. Contusion with ecchymosis over the left eyebrow area. No other signs of trauma. EYES: Pupils equal, round, and reactive to light. Extraocular movements intact. ENT: Oral mucosa very dry, tongue midline. Oropharynx unremarkable. Airway patent. Nares patent, no nasal septal hematoma, TM's intact. NECK: Full range of motion. Supple. Trachea midline. LUNGS: Clear to auscultation bilaterally, no wheezes, rales, or rhonchi. No respiratory distress. No signs of trauma. HEART: Regular rate and rhythm. No murmur ABDOMEN: Soft, non-tender. Non-distended. Bowel sounds present in all 4 quadrants. GENITOURINARY: No signs of trauma. EXTREMITIES: Moves all 4 extremities spontaneously. No edema, normal radial and dorsalis pedis pulses bilaterally. No cyanosis. Contusion with abrasion over the left lateral elbow. Otherwise unremarkable with no tenderness over the extremities or other signs of trauma. BACK: no cervical, thoracic, lumbar midline tenderness. No saddle anesthesia, normal distal neurovascular exam. Moves all extremities in full range of motion. NEUROLOGICAL: Alert and oriented x3. Normal speech. Cranial nerves II through XII grossly intact except for difficulty hearing. PSYCH: Normal affect, normal mood. SKIN: Warm, dry, normal turgor. No rashes or lesions noted. Course - Re-evaluation Re-evalutation: Patient reportedly was initially hypotensive at 76/39 by EMS, after 400 mL's of normal saline on arrival her blood pressure is normal. Patient does appear dry but she has no complaints. She has a bruise over the left eyebrow and over the left elbow but no other injuries are noted or complained about. Patient did not lose consciousness, vomit, and she is only on aspirin but no other blood thinners. Despite concerns of possible anemia hemoglobin is 11.5, no leukocytosis. BUN is elevated at 68, potassium is 5.9, however QTC is 456. No peak T waves, no concerning acute EKG findings. After IV fluids, BMP was repeated while antibiotic for being initiated for UTI that was found on catheterized urine, however potassium did not change at all at 5.9. Patient is on losartan, however she has never had this problem before. She also takes Lasix. Concerned because of patient's age, collapse/hypotension at home, unresponding hyperkalemia, and urinary tract infection. I discussed with Dr. Pritchard. Discussed with patient and significant other. Patient will be discussed with hospitalist for admission. Discussed with Eriberto Ponce, patient accepted for admission. - Vital Signs Vital signs: Temp Pulse Resp BP Pulse Ox 97.7 F 61 16 112/47 L 96 01/14/19 03:21 01/14/19 03:21 01/14/19 03:33 01/14/19 03:21 01/14/19 03:21 - Laboratory Result Diagrams: 01/14/19 03:35 01/14/19 06:15 Laboratory results interpreted by me: 01/14/19 01/14/19 01/14/19 03:35 03:35 04:30 Hgb 11.5 L Hct 34.1 L RDW 20.5 H Lymphocytes % 12.2 L Potassium 5.9 H BUN 69 H Est GFR (Non-Af Amer) 50 L Glucose 172 H AST 102 H Alkaline Phosphatase 177 H Urine Protein 30 H Ur Leukocyte Esterase LARGE H Urine Ascorbic Acid 40 H 01/14/19 06:15 Hgb Hct RDW Lymphocytes % Potassium 5.9 H BUN 63 H Est GFR (Non-Af Amer) 56 L Glucose 146 H AST Alkaline Phosphatase Urine Protein Ur Leukocyte Esterase Urine Ascorbic Acid - EKG Interpretation by Me Additional EKG results interpreted by me: EKG shows sinus rhythm at a rate of 60, QTC of 456, AK interval of 188. Left axis deviation present. No T wave inversions or ST segment changes in consecutive leads. Discharge - Discharge Clinical Impression: Hyperkalemia Hypotension Qualifiers: Hypotension type: unspecified hypotension type Qualified Code(s): I95.9 - Hypotension, unspecified Facial contusion Qualifiers: Encounter type: initial encounter Qualified Code(s): S00.83XA - Contusion of other part of head, initial encounter Left elbow contusion Qualifiers: Encounter type: initial encounter Qualified Code(s): S50.02XA - Contusion of left elbow, initial encounter UTI (urinary tract infection) Qualifiers: Urinary tract infection type: site unspecified Hematuria presence: without hematuria Qualified Code(s): N39.0 - Urinary tract infection, site not specified Condition: Stable Disposition: ADMITTED INPATIENT Admitting Provider: Pratima Ponce NP Unit Admitted: Telemetry Referrals: UDAY NUNEZ MD [ACTIVE STAFF] - Follow up as needed
[2019-01-14 04:00] LABS: ABSOLUTE EOSINOPHILS # (AUTO) 0.1 10^3/uL (0.0-0.6); ABSOLUTE LYMPHOCYTES (AUTO) 1.1 10^3/uL (0.5-4.7); ABSOLUTE MONOCYTES (AUTO) 0.9 10^3/uL (0.1-1.4); ABSOLUTE NEUT (AUTO) 6.6 10^3/uL (1.7-8.2); BASOPHILS % (AUTO) 0.5 % (0-2); EOSINOPHILS % (AUTO) 1.3 % (0-6); HEMATOCRIT 34.1 % (36.0-47.0); HEMOGLOBIN 11.5 g/dL (12.0-15.5); LYMPHOCYTES % (AUTO) 12.2 % (13-45); MEAN CORPUSCULAR HEMOGLOBIN 29.4 pg (27.0-33.4); MEAN CORPUSCULAR HGB CONC 33.8 g/dL (32.0-36.0); MEAN CORPUSCULAR VOLUME 87 fl (80-97); PLATELET COUNT 300 10^3/uL (150-450); RED BLOOD COUNT 3.92 10^6/uL (3.72-5.28); RED CELL DISTRIBUTION WIDTH 20.5 % (11.5-14.0); TOTAL CELLS COUNTED % (AUTO) 100 %; WHITE BLOOD COUNT 8.7 10^3/uL (4.0-10.5)
[2019-01-14 04:18] LABS: ALBUMIN 4.3 g/dL (3.5-5.0); ALKALINE PHOSPHATASE 177 U/L (38-126); ANION GAP 10 (5-19); ASPARTATE AMINO TRANSFERASE 102 U/L (14-36); BILIRUBIN,DIRECT 0.3 mg/dL (0.0-0.4); BILIRUBIN,TOTAL 0.3 mg/dL (0.2-1.3); BLOOD UREA NITROGEN 69 mg/dL (7-20); CARBON DIOXIDE 29 mmol/L (22-30); CHLORIDE 99 mmol/L (98-107); GLUCOSE 172 mg/dL (75-110); POTASSIUM 5.9 mmol/L (3.6-5.0); TOTAL PROTEIN 7.2 g/dL (6.3-8.2)
[2019-01-14] MEDS ORDERED: NORMAL SALINE 1000 ML 1,000 ML IV ONE (04:51)
--- NOTE | 2019-01-14 05:03 | RADIOLOGY REPORT (SQ) ---
EXAM DESCRIPTION: CT HEAD WITHOUT IV CONTRAST COMPLETED DATE/TME: 01/14/2019 03:27 CLINICAL HISTORY: 88 years, Female, fall, head injury COMPARISON: 03/29/2017 TECHNIQUE: Axial CT images of the brain were obtained without contrast. Sagittal and coronal reformats were performed. [facility] 1056 Images stored on PACS. All CT scanners at this facility use dose modulation, iterative reconstruction, and/or weight based dosing when appropriate to reduce radiation dose to as low as reasonably achievable (ALARA). [facility]: Dose Right [facility]: CareDose [facility]: Dose Right [facility]: Teradose 4D [facility]: [employer] LIMITATIONS: None. FINDINGS: There is no acute cortical infarct, hemorrhage, mass, edema, hydrocephalus, or extra-axial fluid collection. There is diffuse cerebral atrophy with moderate periventricular and deep white matter chronic microvascular changes. There are old lacunar infarcts involving the bilateral basal ganglia. The deal-white matter differentiation is preserved. There are old lacunar infarcts involving the bilateral basal ganglia. The paranasal sinuses and mastoid air cells are clear. There is no acute fracture. IMPRESSION: No acute intracranial abnormality. TECHNICAL DOCUMENTATION: Quality ID # [id number]: Final reports with documentation of one or more dose reduction techniques (e.g., Automated exposure control, adjustment of the mA and/or kV according to patient size, use of iterative reconstruction technique) copyright 2011 [email or web address]- All Rights Reserved
--- NOTE | 2019-01-14 05:07 | RADIOLOGY REPORT (SQ) ---
EXAM DESCRIPTION: CT CERVICAL SPINE WITHOUT IV CONTRAST COMPLETED DATE/TME: 01/14/2019 03:27 CLINICAL HISTORY: 88 years, Female, fall, head injury COMPARISON: None. TECHNIQUE: Axial CT images of the cervical spine were obtained without contrast. Sagittal and coronal reformats were performed. DLP 185 Images stored on PACS. All CT scanners at this facility use dose modulation, iterative reconstruction, and/or weight based dosing when appropriate to reduce radiation dose to as low as reasonably achievable (ALARA). [facility]: Dose Right [facility]: CareDose [facility]: Dose Right [facility]: Teradose 4D [facility]: SellABand LIMITATIONS: None. FINDINGS: There is mild grade 1 anterolisthesis of C6 over C7. The vertebral heights are maintained. There is no acute fracture or subluxation. The craniocervical junction is intact. The odontoid process is intact. There is bilateral facet arthropathy. There is severe left-sided neural foraminal narrowing at C3-C4 and C4-C5 there is moderate right-sided neural foraminal narrowing at C3-C4 and C5-C6. The prevertebral soft tissues are normal. IMPRESSION: No acute fracture or subluxation involving the cervical spine. TECHNICAL DOCUMENTATION: Quality ID # 436: Final reports with documentation of one or more dose reduction techniques (e.g., Automated exposure control, adjustment of the mA and/or kV according to patient size, use of iterative reconstruction technique) copyright 2011 [employer]- All Rights Reserved
--- NOTE | 2019-01-14 05:08 | RADIOLOGY REPORT (SQ) ---
EXAM DESCRIPTION: XR CHEST 1 VIEW COMPLETED DATE/TME: 01/14/2019 03:28 CLINICAL HISTORY: 88 years, Female, hypotension COMPARISON: 10/06/2018 NUMBER OF VIEWS: One TECHNIQUE: AP view of the chest LIMITATIONS: None. FINDINGS: Mild pulmonary vascular congestion. The heart is mildly enlarged. There is no pneumothorax or pleural effusion. There is stable mild elevation the right hemidiaphragm. There is no acute fracture IMPRESSION: Mild pulmonary vascular congestion copyright 2010 [employer]- All Rights Reserved
--- NOTE | 2019-01-14 05:09 | RADIOLOGY REPORT (SQ) ---
EXAM DESCRIPTION: XR ELBOW 3 VIEWS COMPLETED DATE/TME: 01/14/2019 03:27 CLINICAL HISTORY: 88 years, Female, fall, pain COMPARISON: None. NUMBER OF VIEWS: Four TECHNIQUE: Four views of the left elbow LIMITATIONS: None. FINDINGS: No acute fracture or dislocation. There is no joint effusion. No large soft tissue swelling. No radiopaque foreign body. Vascular calcifications are noted. IMPRESSION: No acute fracture or dislocation copyright 2010 [employer]- All Rights Reserved
[2019-01-14] MEDS ORDERED: NORMAL SALINE 500 ML IV ONE (05:23)
[2019-01-14 05:29] LABS: APPEARANCE,URINE CLOUDY; BILIRUBIN,URINE NEGATIVE (NEGATIVE); COLOR,URINE YELLOW; GLUCOSE, URINE NEGATIVE (NEGATIVE); KETONES,URINE NEGATIVE (NEGATIVE); LEUKOCYTE ESTERASE,URINE LARGE (NEGATIVE); NITRITE,URINE NEGATIVE (NEGATIVE); PROTEIN,URINE 30 mg/dL (NEGATIVE); URINE SPECIFIC GRAVITY 1.014; UROBILINOGEN,URINE NEGATIVE mg/dL (<2.0)
[2019-01-14] MEDS ORDERED: CEFTRIAXONE 1 GM/D5W RTU 1 GM/50 ML RTUPB IV ONE (05:45)
[2019-01-14 06:43] LABS: ANION GAP 10 (5-19); BLOOD UREA NITROGEN 63 mg/dL (7-20); CALCIUM 9.6 mg/dL (8.4-10.2); CARBON DIOXIDE 29 mmol/L (22-30); CHLORIDE 100 mmol/L (98-107); GLUCOSE 146 mg/dL (75-110); POTASSIUM 5.9 mmol/L (3.6-5.0)
[2019-01-14] MEDS ORDERED: DEXTROSE 50%-WATER 25 GM/50 ML DISP.SYRIN IV ONE (07:12)
[2019-01-14] MEDS ORDERED: CALCIUM GLUCONATE 1000 MG/10 ML INJ IV ONE (07:12)
[2019-01-14] MEDS ORDERED: INSULIN REG, HUMAN 100 UNIT/ML 3 ML VIAL (PYX) IV ONE (07:12)
[2019-01-14] MEDS ORDERED: ONDANSETRON HCL INJ/PF 4 MG/2 ML SDV IV PRN (07:54)
[2019-01-14] MEDS ORDERED: ACETAMINOPHEN 325 MG TABLET PO PRN (07:54)
[2019-01-14] MEDS ORDERED: CEFTRIAXONE 1 GM/D5W RTU 1 GM/50 ML RTUPB IV SCH (10:00)
--- NOTE | 2019-01-14 11:18 | EKG REPORT ---
SEVERITY:- ABNORMAL ECG - SINUS RHYTHM PROBABLE LEFT ATRIAL ABNORMALITY LEFT AXIS DEVIATION LEFT VENTRICULAR HYPERTROPHY CONSIDER ANTERIOR INFARCT : Confirmed by: Sharron Borrero MD 14-Jan-2019 11:17:59
[2019-01-14] MEDS: NORMAL SALINE 1000 ML 1,000 ML IV PRN (11:53)
[2019-01-14] MEDS ORDERED: DEXTROSE 40% GEL 15 GM TUBE PO PRN ×2 (11:57)
[2019-01-14] MEDS ORDERED: DEXTROSE 50%-WATER 25 GM/50 ML DISP.SYRIN IV PRN ×2 (11:57)
[2019-01-14] MEDS ORDERED: GLUCAGON,HUMAN RECOMB 1 MG INJ IM PRN (11:57)
[2019-01-14] MEDS: DOCUSATE SODIUM 100 MG CAPSULE PO SCH ×2 (12:29→17:15)
[2019-01-14] MEDS: HEPARIN SOD (PORCINE) 5,000 UNIT/ML 1 ML VIAL SUBCUT SCH ×2 (14:50→21:14)
[2019-01-14] MEDS: INSULIN REG, HUMAN 100 UNIT/ML 3 ML VIAL (PYX) SUBCUT SCH ×2 (16:41→21:10)
--- NOTE | 2019-01-14 17:15 | PDOC H&P ---
History of Present Illness Admission Date/PCP: 01/14/19 08:09 CORAZON CARRION PA-C Patient complains of: Fall History of Present Illness: SANDY DANG is a 88 year old female that comes emergency department for chief complaint of fall. She comes by EMS. states that she had accidentally stretched out her arms away from her with her walker and he was try ing to help her get the walker back close to her body when they lost balance and she fell to the ground. However he also states that she has been incredibly weak. She just had an iron infusion and he states that did not seem to help. Patient was found to be hypotensive initially by EMS, she was given 400 mL's of normal saline, she was not hypotensive on arrival. Patient denies chest pain, headache, or any current complaints. She has bruising to the left side of her forehead and over the left elbow area. Patient and fever/chills. She is on aspirin but no other blood thinners. Past medical history includes hypertension, CHF, COPD, hypothyroidism. 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 Psychiatric Medical History: Reports: Dementia Denies: Depression Hematology: Reports: Anemia Past Surgical History Past Surgical History: Reports: Appendectomy, Cholecystectomy, Mastectomy - right, Other - Unknown Denies: Hysterectomy Social History Lives with: Family Smoking Status: Former Smoker Frequency of Alcohol Use: None Hx Recreational Drug Use: No Drugs: None Hx Prescription Drug Abuse: No Family History Family History: CAD, Hypertension Parental Family History Reviewed: Yes Children Family History Reviewed: Yes Sibling(s) Family History Reviewed.: Yes Medication/Allergy Home Medications: Atorvastatin Calcium [Lipitor 20 mg Tablet] 20 mg PO QHS 03/01/18 Carvedilol [Coreg 12.5 mg Tablet] 12.5 mg PO Q12 03/01/18 Eplerenone [Inspra] 50 mg PO Q12 03/01/18 Escitalopram Oxalate [Lexapro] 20 mg PO QPM 03/01/18 Hydralazine HCl [Apresoline 25 mg Tablet] 100 mg PO Q8 05/18/18 Levothyroxine Sodium [Synthroid 0.15 mg Tablet] 0.15 mg PO Q6AM 05/18/18 Losartan Potassium [Cozaar 100 mg Tablet] 100 mg PO QHS 05/18/18 Metformin HCl 500 mg PO BID 05/18/18 Nifedipine [Nifedipine ER] 60 mg PO QHS 05/18/18 Ropinirole HCl [Requip] 2 mg PO Q12 05/18/18 Anastrozole [Arimidex 1 mg Tablet] 1 mg PO DAILY tablet 07/12/18 Furosemide [Lasix] 20 mg PO BID 30 Days #60 tablet 10/08/18 Magnesium Oxide [Mag-Ox 400 mg Tablet] 400 mg PO DAILY tablet 10/08/18 Cholestyramine/Aspartame [Prevalite Packet] 4 gm PO MEALS 01/14/19 Clonidine HCl 0.3 mg PO QHS 01/14/19 Allergies/Adverse Reactions: diazepam [From Valium] Allergy (Verified 05/18/18 04:54) Physical Exam Vital Signs: Temp Pulse Resp BP Pulse Ox 98.5 F 67 18 117/56 L 97 01/14/19 11:02 01/14/19 14:00 01/14/19 11:02 01/14/19 11:02 01/14/19 11:02 Intake & Output 01/13/19 01/14/19 01/15/19 06:59 06:59 06:59 Intake Total 550 Balance 550 Weight 58.06 kg 57.9 kg General appearance: PRESENT: no acute distress, thin, well-developed, well- nourished Head exam: PRESENT: atraumatic, normocephalic Eye exam: PRESENT: conjunctiva pink, EOMI, PERRLA. ABSENT: scleral icterus Ear exam: PRESENT: normal external ear exam Mouth exam: PRESENT: moist, tongue midline Teeth exam: PRESENT: edentulous Respiratory exam: PRESENT: clear to auscultation stella. ABSENT: rales, rhonchi, wheezes Cardiovascular exam: PRESENT: RRR. ABSENT: diastolic murmur, rubs, systolic murmur Pulses: PRESENT: normal dorsalis pedis pul Vascular exam: PRESENT: normal capillary refill GI/Abdominal exam: PRESENT: normal bowel sounds, soft. ABSENT: distended, guarding, mass, organolmegaly, rebound, tenderness Rectal exam: PRESENT: deferred Extremities exam: PRESENT: full ROM. ABSENT: calf tenderness, clubbing, pedal edema Musculoskeletal exam: PRESENT: ambulatory, full ROM Neurological exam: PRESENT: alert, altered, oriented to person, CN II-XII grossly intact Psychiatric exam: PRESENT: appropriate affect Focused psych exam: PRESENT: flight of ideas Skin exam: PRESENT: abrasion, dry - 3 cm abrasion/ecchymosis above left eye from fall, warm, other - Skin tear to left elbow covered with Tegaderm by nursing staff Results Laboratory Results: 01/14/19 03:35 01/14/19 06:15 01/14/19 01/14/19 01/14/19 03:35 03:35 04:30 WBC 8.7 RBC 3.92 Hgb 11.5 L Hct 34.1 L MCV 87 MCH 29.4 MCHC 33.8 RDW 20.5 H Plt Count 300 Seg Neutrophils % 76.0 Lymphocytes % 12.2 L Monocytes % 10.0 Eosinophils % 1.3 Basophils % 0.5 Absolute Neutrophils 6.6 Absolute Lymphocytes 1.1 Absolute Monocytes 0.9 Absolute Eosinophils 0.1 Absolute Basophils 0.0 Sodium 138.1 Potassium 5.9 H Chloride 99 Carbon Dioxide 29 Anion Gap 10 BUN 69 H Creatinine 1.04 Est GFR ( Amer) > 60 Est GFR (Non-Af Amer) 50 L Glucose 172 H Lactic Acid Calcium 10.0 Total Bilirubin 0.3 AST 102 H Alkaline Phosphatase 177 H Total Protein 7.2 Albumin 4.3 Urine Color YELLOW Urine Appearance CLOUDY Urine pH 7.0 Ur Specific [place] 1.014 Urine Protein 30 H Urine Glucose (UA) NEGATIVE Urine Ketones NEGATIVE Urine Blood NEGATIVE Urine Nitrite NEGATIVE Ur Leukocyte Esterase LARGE H Urine WBC (Auto) >182 Urine RBC (Auto) 1 01/14/19 01/14/19 06:15 06:15 WBC RBC Hgb Hct MCV MCH MCHC RDW Plt Count Seg Neutrophils % Lymphocytes % Monocytes % Eosinophils % Basophils % Absolute Neutrophils Absolute Lymphocytes Absolute Monocytes Absolute Eosinophils Absolute Basophils Sodium 138.5 Potassium 5.9 H Chloride 100 Carbon Dioxide 29 Anion Gap 10 BUN 63 H Creatinine 0.94 Est GFR ( Amer) > 60 Est GFR (Non-Af Amer) 56 L Glucose 146 H Lactic Acid 1.3 Calcium 9.6 Total Bilirubin AST Alkaline Phosphatase Total Protein Albumin Urine Color Urine Appearance Urine pH Ur Specific [place] Urine Protein Urine Glucose (UA) Urine Ketones Urine Blood Urine Nitrite Ur Leukocyte Esterase Urine WBC (Auto) Urine RBC (Auto) 01/14/19 03:35 Troponin I < 0.012 Impressions: Cervical Spine CT 01/14/19 03:27 IMPRESSION: No acute fracture or subluxation involving the cervical spine. TECHNICAL DOCUMENTATION: Quality ID # 436: Final reports with documentation of one or more dose reduction techniques (e.g., Automated exposure control, adjustment of the mA and/or kV according to patient size, use of iterative reconstruction technique) copyright 2010 [employer]- All Rights Reserved Elbow X-Ray 01/14/19 03:27 IMPRESSION: No acute fracture or dislocation copyright 2010 [employer]- All Rights Reserved Head CT 01/14/19 03:27 IMPRESSION: No acute intracranial abnormality. TECHNICAL DOCUMENTATION: Quality ID # [id number]: Final reports with documentation of one or more dose reduction techniques (e.g., Automated exposure control, adjustment of the mA and/or kV according to patient size, use of iterative reconstruction technique) copyright 2010 [employer]- All Rights Reserved Chest X-Ray 01/14/19 03:28 IMPRESSION: Mild pulmonary vascular congestion copyright 2010 [employer]- All Rights Reserved Assessment and Plan - Diagnosis (1) Hyperkalemia Is this a current diagnosis for this admission?: Yes Plan: Likely secondary to mild dehydration, losartan and metformin. Will gently hydrate her with IV fluid overnight. She got D 50 and insulin in the ER. Due to dehydration we will avoid Kayexalate for now. Recheck chemistry in the a.m. (2) Hypotension Qualifiers: Hypotension type: unspecified hypotension type Qualified Code(s): I95.9 - Hypotension, unspecified Is this a current diagnosis for this admission?: Yes Plan: states she has been having much lower blood pressures at home over the last several months. She one time was extremely hypertensive and takes a lot of antihypertensive medications. We will hold her losartan and put parameters on her other tie hypertensives to avoid further hypotension. She was also mildly dehydrated. Hypotension resolved with fluid bolus in the ER. (3) Acute UTI Is this a current diagnosis for this admission?: Yes Plan: Patient has a large amount of leukocytes and small amount of blood in urine. Will cover with IV ceftriaxone while cultures pending (4) Diabetes 1.5, managed as type 2 Is this a current diagnosis for this admission?: Yes Plan: Hold metformin. Continue sliding scale insulin. He reports she mostly drinks boost at home. (5) Facial contusion Qualifiers: Encounter type: initial encounter Qualified Code(s): S00.83XA - Contusion of other part of head, initial encounter Is this a current diagnosis for this admission?: Yes Plan: Small abrasion over the left eye. (6) Frequent falls Is this a current diagnosis for this admission?: Yes Plan: reports that she has been falling more frequently lately. He does not want her to go to short-term this time. He states he has been caring for her for many years and is comfortable continuing to do so. - Time Time Spent with patient: 35 or more minutes Total Critical Time (Minutes): 30 Medications reviewed and adjusted accordingly: Yes Anticipated discharge: Home with Homehealth - Inpatient Certification Based on my medical assessment, after consideration of the patient's comorbidities, presenting symptoms, or acuity I expect that the services needed warrant INPATIENT care.: Yes I certify that my determination is in accordance with my understanding of Medicare's requirements for reasonable and necessary INPATIENT services [42 CFR 412.3e].: Yes
[2019-01-14] MEDS: CHOLESTYRAMINE/ASPARTAME 4 GM PACKET PO SCH (18:25)
[2019-01-14] MEDS: HYDRALAZINE HCL 25 MG TABLET PO SCH (21:11)
[2019-01-14] MEDS: ESCITALOPRAM OXALATE 10 MG TABLET PO SCH (21:11)
[2019-01-14] MEDS: ATORVASTATIN CALCIUM 20 MG TABLET PO SCH (21:12)
[2019-01-14] MEDS: NIFEDIPINE 30 MG TAB.ER.24 PO SCH (21:12)
[2019-01-14] MEDS: CARVEDILOL 12.5 MG TABLET PO SCH (21:13)
[2019-01-14] MEDS: CLONIDINE HCL 0.1 MG TABLET PO SCH (21:13)
[2019-01-14] MEDS: EPLERENONE 25 MG TABLET PO SCH (21:19)
[2019-01-14] MEDS: ROPINIROLE HCL 2 MG TABLET PO SCH (21:19)
[2019-01-14] MEDS ORDERED: (PENDING PHARMACY ID) (Clonidine Hcl [Clonidine Hcl] 0.3 MG) PO SCH (22:00)
[2019-01-14] MEDS ORDERED: (PENDING PHARMACY ID) (Nifedipine [Nifedipine Er] 60 MG) PO SCH (22:00)
[2019-01-14] MEDS ORDERED: (PENDING PHARMACY ID) (Eplerenone [Inspra] 50 MG) PO SCH (22:00)
[2019-01-15] MEDS: NORMAL SALINE 1000 ML 1,000 ML IV PRN ×2 (01:24→22:16)
[2019-01-15] MEDS: HEPARIN SOD (PORCINE) 5,000 UNIT/ML 1 ML VIAL SUBCUT SCH ×3 (05:51→21:58)
[2019-01-15] MEDS: HYDRALAZINE HCL 25 MG TABLET PO SCH ×3 (05:51→21:57)
[2019-01-15] MEDS: LEVOTHYROXINE SODIUM 0.15 MG TABLET PO SCH (05:52)
[2019-01-15 05:55] LABS: INTERNATIONAL RATION (INR) 1.03; PROTHROMBIN TIME 13.5 SEC (11.4-15.4)
[2019-01-15 06:12] LABS: ANION GAP 6 (5-19); CALCIUM 9.2 mg/dL (8.4-10.2); CARBON DIOXIDE 28 mmol/L (22-30); CHLORIDE 104 mmol/L (98-107); GLUCOSE 96 mg/dL (75-110); PHOSPHORUS 3.8 mg/dL (2.5-4.5); POTASSIUM 5.2 mmol/L (3.6-5.0)
[2019-01-15 06:37] LABS: BLOOD UREA NITROGEN 35 mg/dL (7-20)
[2019-01-15] MEDS: INSULIN REG, HUMAN 100 UNIT/ML 3 ML VIAL (PYX) SUBCUT SCH ×4 (07:27→21:58)
[2019-01-15] MEDS: CHOLESTYRAMINE/ASPARTAME 4 GM PACKET PO SCH ×3 (09:05→17:41)
[2019-01-15] MEDS: MAGNESIUM OXIDE 400 MG TABLET PO SCH (09:07)
[2019-01-15] MEDS: CARVEDILOL 12.5 MG TABLET PO SCH ×2 (09:07→21:56)
[2019-01-15] MEDS: ROPINIROLE HCL 2 MG TABLET PO SCH ×2 (09:07→21:59)
[2019-01-15] MEDS: EPLERENONE 25 MG TABLET PO SCH ×2 (09:07→21:59)
[2019-01-15] MEDS: ANASTROZOLE 1 MG TABLET PO SCH (09:08)
[2019-01-15] MEDS: CEFTRIAXONE SODIUM 1,000 MG in DEXTROSE 5%-WATER 50 ML IV SCH (09:08)
[2019-01-15] MEDS: DOCUSATE SODIUM 100 MG CAPSULE PO SCH ×2 (09:08→17:41)
--- NOTE | 2019-01-15 16:22 | PDOC PROGRESS REPORT ---
Subjective Progress Note for:: 01/15/19 Subjective:: Patient is seen resting in bed. She is awake and alert. She knows she is in the hospital. She tells me the year is "1916". She denies any chest pain, shortness of breath or dyspnea. She denies any nausea, vomiting or diarrhea. She denies any fevers or chills. She denies any arthralgias or myalgias. Remaining review of systems are negative. is presently not available Reason For Visit: HYPERKALEMIA,DEHYDRATION Physical Exam Vital Signs: Temp Pulse Resp BP Pulse Ox 98.1 F 62 18 116/89 H 98 01/15/19 08:00 01/15/19 08:00 01/15/19 08:00 01/15/19 08:00 01/15/19 08:00 Intake & Output 01/14/19 01/15/19 01/16/19 06:59 06:59 06:59 Intake Total 550 1680 50 Balance 550 1680 50 Weight 58.06 kg 60.1 kg General appearance: PRESENT: no acute distress, thin, well-developed, well- nourished Head exam: PRESENT: atraumatic, normocephalic Eye exam: PRESENT: conjunctiva pink, EOMI, PERRLA. ABSENT: scleral icterus Ear exam: PRESENT: normal external ear exam Mouth exam: PRESENT: moist, tongue midline Teeth exam: PRESENT: edentulous Neck exam: ABSENT: carotid bruit, JVD, lymphadenopathy, thyromegaly Respiratory exam: PRESENT: clear to auscultation stella. ABSENT: rales, rhonchi, wheezes Cardiovascular exam: PRESENT: RRR. ABSENT: diastolic murmur, rubs, systolic murmur Pulses: PRESENT: normal carotid pulses, normal radial pulses Vascular exam: PRESENT: normal capillary refill GI/Abdominal exam: PRESENT: normal bowel sounds, soft. ABSENT: distended, guarding, mass, organolmegaly, rebound, tenderness Rectal exam: PRESENT: deferred Extremities exam: PRESENT: full ROM, tenderness - left elbow, bruised with healing small skin tear. ABSENT: calf tenderness, clubbing, pedal edema Neurological exam: PRESENT: alert, altered, awake, oriented to person, oriented to place, CN II-XII grossly intact Psychiatric exam: PRESENT: appropriate affect, normal mood. ABSENT: homicidal ideation, suicidal ideation Skin exam: PRESENT: abrasion, skin tears - small abrasion and bruise above left eye. Left elbow skin tear healing Results Laboratory Results: 01/14/19 03:35 01/15/19 04:54 01/15/19 04:54 Sodium 138.1 Potassium 5.2 H Chloride 104 Carbon Dioxide 28 Anion Gap 6 BUN 35 H D Creatinine 0.53 Est GFR ( Amer) > 60 Est GFR (Non-Af Amer) > 60 Glucose 96 Calcium 9.2 Phosphorus 3.8 Magnesium 1.9 01/14/19 03:35 Troponin I < 0.012 Impressions: Cervical Spine CT 01/14/19 03:27 IMPRESSION: No acute fracture or subluxation involving the cervical spine. TECHNICAL DOCUMENTATION: Quality ID # 436: Final reports with documentation of one or more dose reduction techniques (e.g., Automated exposure control, adjustment of the mA and/or kV according to patient size, use of iterative reconstruction technique) copyright 2010 [employer]- All Rights Reserved Elbow X-Ray 01/14/19 03:27 IMPRESSION: No acute fracture or dislocation copyright 2010 [employer]- All Rights Reserved Head CT 01/14/19 03:27 IMPRESSION: No acute intracranial abnormality. TECHNICAL DOCUMENTATION: Quality ID # 436: Final reports with documentation of one or more dose reduction techniques (e.g., Automated exposure control, adjustment of the mA and/or kV according to patient size, use of iterative reconstruction technique) copyright 2010 [employer]- All Rights Reserved Chest X-Ray 01/14/19 03:28 IMPRESSION: Mild pulmonary vascular congestion copyright 2010 [employer]- All Rights Reserved Assessment and Plan - Diagnosis (1) Hyperkalemia Is this a current diagnosis for this admission?: Yes Plan: Improved with hydration overnight Likely secondary to mild dehydration, losartan and metformin. (2) Hypotension Qualifiers: Hypotension type: unspecified hypotension type Qualified Code(s): I95.9 - Hypotension, unspecified Is this a current diagnosis for this admission?: Yes Plan: states she has been having much lower blood pressures at home over the last several months. She one time was extremely hypertensive and takes a lot of antihypertensive medications. We will hold her losartan and put parameters on her other tie hypertensives to avoid further hypotension. She was also mildly dehydrated. Hypotension resolved with fluid bolus in the ER. (3) Acute UTI Is this a current diagnosis for this admission?: Yes Plan: Patient has a large amount of leukocytes and small amount of blood in urine. Will cover with IV ceftriaxone while cultures pending (4) Diabetes 1.5, managed as type 2 Is this a current diagnosis for this admission?: Yes Plan: Hold metformin. Continue sliding scale insulin. He reports she mostly drinks boost at home. (5) Facial contusion Qualifiers: Encounter type: initial encounter Qualified Code(s): S00.83XA - Contusion of other part of head, initial encounter Is this a current diagnosis for this admission?: Yes Plan: Small abrasion over the left eye. (6) Frequent falls Is this a current diagnosis for this admission?: Yes Plan: reports that she has been falling more frequently lately. He does not want her to go to short-term this time. He states he has been caring for her for many years and is comfortable continuing to do so. - Time Time Spent with patient: 25-34 minutes Total Critical Time (Minutes): 20 Medications reviewed and adjusted accordingly: Yes Anticipated discharge: Home with Homehealth Within: within 24 hours - Inpatient Certification Based on my medical assessment, after consideration of the patient's comorbidities, presenting symptoms, or acuity I expect that the services needed warrant INPATIENT care.: Yes I certify that my determination is in accordance with my understanding of Medicare's requirements for reasonable and necessary INPATIENT services [42 CFR 412.3e].: Yes Medical Necessity: Need For IV Fluids, Risk of Complication if Not Cared For in Hospital
[2019-01-15] MEDS: NIFEDIPINE 30 MG TAB.ER.24 PO SCH (21:56)
[2019-01-15] MEDS: ATORVASTATIN CALCIUM 20 MG TABLET PO SCH (21:57)
[2019-01-15] MEDS: ESCITALOPRAM OXALATE 10 MG TABLET PO SCH (21:57)
[2019-01-15] MEDS: CLONIDINE HCL 0.1 MG TABLET PO SCH (21:57)
[2019-01-15] MEDS ORDERED: LOSARTAN POTASSIUM 50 MG TABLET PO SCH (22:00)
[2019-01-16] MEDS: HYDRALAZINE HCL 25 MG TABLET PO SCH (06:39)
[2019-01-16] MEDS: HEPARIN SOD (PORCINE) 5,000 UNIT/ML 1 ML VIAL SUBCUT SCH (06:40)
[2019-01-16] MEDS: LEVOTHYROXINE SODIUM 0.15 MG TABLET PO SCH (06:40)
[2019-01-16 06:57] LABS: ANION GAP 6 (5-19); BLOOD UREA NITROGEN 28 mg/dL (7-20); CALCIUM 8.8 mg/dL (8.4-10.2); CARBON DIOXIDE 27 mmol/L (22-30); CHLORIDE 102 mmol/L (98-107); GLUCOSE 140 mg/dL (75-110); POTASSIUM 5.2 mmol/L (3.6-5.0)
[2019-01-16] MEDS: INSULIN REG, HUMAN 100 UNIT/ML 3 ML VIAL (PYX) SUBCUT SCH ×2 (07:50→11:42)
[2019-01-16] MEDS: CHOLESTYRAMINE/ASPARTAME 4 GM PACKET PO SCH ×2 (07:57→11:42)
[2019-01-16] MEDS: EPLERENONE 25 MG TABLET PO SCH (09:06)
[2019-01-16] MEDS: ANASTROZOLE 1 MG TABLET PO SCH (09:08)
[2019-01-16] MEDS: DOCUSATE SODIUM 100 MG CAPSULE PO SCH (09:08)
[2019-01-16] MEDS: MAGNESIUM OXIDE 400 MG TABLET PO SCH (09:08)
[2019-01-16] MEDS: CARVEDILOL 12.5 MG TABLET PO SCH (09:08)
[2019-01-16] MEDS: ROPINIROLE HCL 2 MG TABLET PO SCH (09:08)
[2019-01-16] MEDS: CEFTRIAXONE SODIUM 1,000 MG in DEXTROSE 5%-WATER 50 ML IV SCH (09:12)
[2019-01-16 10:17] VITALS: BP 117/39
[2019-01-16] MEDS ORDERED: CEFPODOXIME 200 MG TABLET PO SCH (11:00)
--- NOTE | 2019-01-16 14:28 | PDOC DISCHARGE SUMMARY ---
General - Admit/Disc Date/PCP Admission Date/Primary Care Provider: 01/15/19 08:01 CORAZON CARRION PA-C Discharge Date: 01/16/19 - Discharge Diagnosis (1) Hyperkalemia Is this a current diagnosis for this admission?: Yes Summary: Likely secondary to mild dehydration and losartan. Resolved with IV hydration. (2) Hypotension Is this a current diagnosis for this admission?: Yes Summary: Secondary to mild dehydration and urinary tract infection. Resolved with (3) Acute UTI Is this a current diagnosis for this admission?: Yes Summary: Sugar greater than 100,000 colonies of gram-negative rods. Patient was placed on oral Vantin for a total of 7 days of coverage. (4) Diabetes 1.5, managed as type 2 Is this a current diagnosis for this admission?: Yes Summary: Continue home medications. Appetite has been good sugars have been stable (5) Facial contusion Is this a current diagnosis for this admission?: Yes Summary: Resolving. (6) Frequent falls Is this a current diagnosis for this admission?: Yes Summary: Has been declines need for home health. He states he has been caring for her for years and will continue to do so without outside help. - Additional Information Resuscitation Status: Do Not Resuscitate Discharge Diet: Diabetic Discharge Activity: Activity As Tolerated, Balance Activity w/Rest Prescriptions: Cefpodoxime Proxetil [Vantin 200 mg Tablet] 200 mg PO Q12 5 Days #9 tablet Home Medications: Atorvastatin Calcium [Lipitor 20 mg Tablet] 20 mg PO QHS 03/01/18 Carvedilol [Coreg 12.5 mg Tablet] 12.5 mg PO Q12 03/01/18 Eplerenone [Inspra] 50 mg PO Q12 03/01/18 Escitalopram Oxalate [Lexapro] 20 mg PO QPM 03/01/18 Hydralazine HCl [Apresoline 25 mg Tablet] 100 mg PO Q8 05/18/18 Levothyroxine Sodium [Synthroid 0.15 mg Tablet] 0.15 mg PO Q6AM 05/18/18 Losartan Potassium [Cozaar 100 mg Tablet] 100 mg PO QHS 05/18/18 Metformin HCl 500 mg PO BID 05/18/18 Nifedipine [Nifedipine ER] 60 mg PO QHS 05/18/18 Ropinirole HCl [Requip] 2 mg PO Q12 05/18/18 Anastrozole [Arimidex 1 mg Tablet] 1 mg PO DAILY tablet 07/12/18 Furosemide [Lasix] 20 mg PO BID 30 Days #60 tablet 10/08/18 Magnesium Oxide [Mag-Ox 400 mg Tablet] 400 mg PO DAILY tablet 10/08/18 Cholestyramine/Aspartame [Prevalite Packet] 4 gm PO MEALS 01/14/19 Clonidine HCl 0.3 mg PO QHS 01/14/19 Acetaminophen [Tylenol 325 mg Tablet] 650 mg PO Q4HP PRN tablet 01/16/19 Cefpodoxime Proxetil [Vantin 200 mg Tablet] 200 mg PO Q12 5 Days #9 tablet 01/16/19 Docusate Sodium [Colace 100 mg Capsule] 100 mg PO BID capsule 01/16/19 History of Present Illness Patient complains of: Fall History of Present Illness: SANDY DANG is a 88 year old female that comes emergency department for chief complaint of fall. She comes by EMS. states that she had accidentally stretched out her arms away from her with her walker and he was t rying to help her get the walker back close to her body when they lost balance and she fell to the ground. However he also states that she has been incredibly weak. She just had an iron infusion and he states that did not seem to help. Patient was found to be hypotensive initially by EMS, she was given 400 mL's of normal saline, she was not hypotensive on arrival. Patient denies chest pain, headache, or any current complaints. She has bruising to the left side of her forehead and over the left elbow area. Patient and fever/chills. She is on aspirin but no other blood thinners. Past medical history includes hypertension, CHF, COPD, hypothyroidism. Hospital Course Hospital Course: Patient was admitted to the hospitalist service on telemetry. She was started on gentle IV hydration and broad-spectrum antibiotics for urinary tract infe ction. Blood cultures x2 remain negative. She was hyperkalemic with a potassium 5.9 on admission. This improved with 1 dose of D50 and insulin and IV hydration. Potassium was down to 5 today. Her appetite was good throughout her hospital stay. She had no fevers. Blood cultures x2 are negative. Urine culture grew rater than 100,000 colonies of gram-negative rods. She was transitioned from IV ceftriaxone to oral Vantin for a total 7-day course of antibiotic coverage. declined the need for home health services post discharge. Her mentation was back to her baseline. She was eating very well and taking her medications without difficulty. She will be discharged home today. She will follow-up with her primary care provider in the next 1 to 2 weeks. Physical Exam Vital Signs: Temp Pulse Resp BP Pulse Ox 97.3 F 51 L 20 117/39 L 97 01/16/19 11:09 01/16/19 11:09 01/16/19 11:09 01/16/19 11:09 01/16/19 11:09 Intake & Output 01/15/19 01/16/19 01/17/19 06:59 06:59 06:59 Intake Total 1680 1780 1050 Balance 1680 1780 1050 Weight 60.1 kg 59.4 kg General appearance: PRESENT: no acute distress, thin, well-developed, well- nourished Head exam: PRESENT: atraumatic, normocephalic, other - 2 cm ecchymotic area above her left eyebrow and fall. This is resolving. Eye exam: PRESENT: conjunctiva pink, EOMI, PERRLA. ABSENT: scleral icterus Ear exam: PRESENT: normal external ear exam Mouth exam: PRESENT: moist, tongue midline Neck exam: ABSENT: carotid bruit, JVD, lymphadenopathy, thyromegaly Respiratory exam: PRESENT: clear to auscultation stella. ABSENT: rales, rhonchi, wheezes Cardiovascular exam: PRESENT: RRR. ABSENT: diastolic murmur, rubs, systolic murmur Pulses: PRESENT: normal dorsalis pedis pul Vascular exam: PRESENT: normal capillary refill GI/Abdominal exam: PRESENT: normal bowel sounds, soft. ABSENT: distended, guarding, mass, organolmegaly, rebound, tenderness Rectal exam: PRESENT: deferred Extremities exam: PRESENT: full ROM. ABSENT: calf tenderness, clubbing, pedal edema Musculoskeletal exam: PRESENT: ambulatory, full ROM, normal inspection Neurological exam: PRESENT: alert, awake, oriented to person, CN II-XII grossly intact. ABSENT: motor sensory deficit Psychiatric exam: PRESENT: appropriate affect, normal mood. ABSENT: homicidal ideation, suicidal ideation Skin exam: PRESENT: abrasion - Left elbow with small skin tear healing. No signs of infection., dry, intact, warm. ABSENT: cyanosis, rash Results Laboratory Results: 01/14/19 03:35 01/16/19 05:42 01/16/19 05:42 Sodium 134.9 L Potassium 5.2 H Chloride 102 Carbon Dioxide 27 Anion Gap 6 BUN 28 H Creatinine 0.54 Est GFR ( Amer) > 60 Est GFR (Non-Af Amer) > 60 Glucose 140 H Calcium 8.8 Magnesium 2.1 01/14/19 03:35 Troponin I < 0.012 Impressions: Cervical Spine CT 01/14/19 03:27 IMPRESSION: No acute fracture or subluxation involving the cervical spine. TECHNICAL DOCUMENTATION: Quality ID # 436: Final reports with documentation of one or more dose reduction techniques (e.g., Automated exposure control, adjustment of the mA and/or kV according to patient size, use of iterative reconstruction technique) copyright 2010 [employer]- All Rights Reserved Elbow X-Ray 01/14/19 03:27 IMPRESSION: No acute fracture or dislocation copyright 2010 [employer]- All Rights Reserved Head CT 01/14/19 03:27 IMPRESSION: No acute intracranial abnormality. TECHNICAL DOCUMENTATION: Quality ID # 436: Final reports with documentation of one or more dose reduction techniques (e.g., Automated exposure control, adjustment of the mA and/or kV according to patient size, use of iterative reconstruction technique) copyright 2010 [employer]- All Rights Reserved Chest X-Ray 01/14/19 03:28 IMPRESSION: Mild pulmonary vascular congestion copyright 2010 [employer]- All Rights Reserved Qualifiers - * PATIENT BEING DISCHARGED WITH ANY OF THE FOLLOWING DIAGNOSIS: No Acute Heart Failure - Is this a Heart Failure Patient?: No Plan Discharge Plan: Home with Time Spent: Less than 30 Minutes
== END 2019-01-16 11:56 | disposition home or self-care (01) | DRG 641 ==
LOC: ER 03:07 → EH 08:09 → 4N 10:50 → OBSVTOIN 01-15 08:01
PROVIDERS: ADMIT Internal Medicine; ATTEND Internal Medicine
DX: E87.5 Hyperkalemia (principal); N39.0 Urinary tract infection, site not specified; E86.0 Dehydration; I95.9 Hypotension, unspecified; E11.9 Type 2 diabetes mellitus without complications; Z79.899 Other long term (current) drug therapy; I11.0 Hypertensive heart disease with heart failure; I50.9 Heart failure, unspecified; H44.9 Unspecified disorder of globe; E03.9 Hypothyroidism, unspecified; R29.6 Repeated falls; S50.312A Abrasion of left elbow, initial encounter; S00.81XA Abrasion of other part of head, initial encounter; W18.30XA Fall on same level, unspecified, initial encounter; M46.92 Unspecified inflammatory spondylopathy, cervical region; F03.90 Unspecified dementia, unspecified severity, without behavioral disturbance, psychotic disturbance, mood disturbance, and anxiety; Z90.79 Acquired absence of other genital organ(s); Z90.11 Acquired absence of right breast and nipple; Z88.8 Allergy status to other drugs, medicaments and biological substances; Z87.891 Personal history of nicotine dependence
CPT/HCPCS: 36415; 70450; 71045; 72125; 80048; 80053; 81001; 82962; 83036; 83605; 83735; 84100; 84484; 85025; 85610; 87040; 87086; 87088; 87186; 93005; 93010; 96365; 96375; 99285; G0378; J0610; J0696; J1644; J1815; J3490; J7030; J7040; J7060

== ENCOUNTER 2019-01-22 01:27 | Emergency (ER) | payer MEDICARE, OTHER ==
--- NOTE | 2019-01-22 02:14 | ER Document Report ---
ED General - General Stated Complaint: GENERALIZED WEAKNESS WITH HYPOTENSION Time Seen by Provider: 01/22/19 01:37 Primary Care Provider: CORAZON CARRION PA-C [Primary Care Provider] - Follow up tomorrow Mode of Arrival: Medic Information source: Patient, Relative, Emergency Med Personnel, [facility] Records Notes: 88-year-old female with dementia, congestive heart failure, hyperlipidemia, hypertension, type 1 diabetes, hypothyroidism presents via EMS from home after the patient's found her to be hypotensive. states that he was attempting to help the patient walked to the bathroom when her knees buckled causing her to fall onto her butt. He was able to get her back onto the bed and when he checked her blood pressure he states the reading was 50/40. He states he did this several times with similar readings and decided to call 911. Upon EMS arrival they report that the patient was mildly hypoxic at 89%. She was hypotensive and did receive 500 cc of LR and upon her arrival blood pressure has improved to 110/57. Patient was recently discharged from [facility] on January 16, 2019 where she was admitted for hypotension, hyperkalemia and a UTI. At that time she was offered home health care but has been declined. Patient has no physical complaints. She denies headache, chest pain, shortness of breath, abdominal pain, nausea, vomiting, dysuria, hematuria. TRAVEL OUTSIDE OF THE [place] IN LAST 30 DAYS: No - HPI Onset: Just prior to arrival Onset/Duration: Sudden Quality of pain: No pain Severity: None Pain Level: Denies Associated symptoms: denies: Body/muscle aches, Chest pain, Nonproductive cough, Productive cough, Fever, Nausea, Vomiting, Shortness of breath Exacerbated by: Denies Relieved by: Denies Similar symptoms previously: Yes Recently seen / treated by doctor: Yes - Related Data Allergies/Adverse Reactions: diazepam [From Valium] Allergy (Verified 05/18/18 04:54) Past Medical History - General Information source: Patient, Relative, Emergency Med Personnel, [facility] Records - Social History Smoking Status: Never Smoker Frequency of alcohol use: None Drug Abuse: None Lives with: Spouse/Significant other Family History: CAD, Hypertension - Past Medical History Cardiac Medical History: Reports: Hx Congestive Heart Failure, Hx Hypercholesterolemia, Hx Hypertension Denies: Hx Coronary Artery Disease, Hx Heart Attack Pulmonary Medical History: Reports: Hx COPD, Hx Pneumonia Denies: Hx Asthma, Hx Bronchitis, Hx Tuberculosis Neurological Medical History: Reports: Hx Cerebrovascular Accident. 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 Denies: Hx Hysterectomy - Immunizations Hx Diphtheria, Pertussis, Tetanus Vaccination: Yes Hx Pneumococcal Vaccination: 06/14/12 Review of Systems - Review of Systems Notes: REVIEW OF SYSTEMS: CONSTITUTIONAL : Denies fever, chills, or sweats. Denies recent illness. Denies weight loss, recent hospitalizations. EENT: Denies visual changes, eye pain. Denies sore throat, oral lesions, difficulty swallowing. CARDIOVASCULAR: Denies chest pain. Denies palpitations. Denies lower extremity edema. RESPIRATORY: Denies cough. Denies shortness of breath, wheezing. GASTROINTESTINAL: Denies abdominal pain or distention. Denies nausea, vomiting, or diarrhea. Denies blood in vomitus, stools, or per rectum. Denies black, tarry stools. Denies constipation. GENITOURINARY: Denies difficulty urinating, painful urination, frequency, blood in urine, or vaginal discharge. MUSCULOSKELETAL: Denies back or neck pain or stiffness. Denies joint pain or swelling. SKIN: Denies rash, lesions or sores. HEMATOLOGIC : Denies easy bruising or bleeding. LYMPHATIC: Denies swollen glands. NEUROLOGICAL: Denies confusion or altered mental status. Denies loss of consciousness. Denies dizziness or lightheadedness. Denies headache. Denies weakness or paralysis. Denies problems difficulty with ambulation, slurred speech. Denies sensory loss, numbness, or tingling. Denies seizures. PSYCHIATRIC: Denies anxiety or stress. Denies depression, suicidal ideation, or homicidal ideation. Denies visual or auditory hallucinations. Physical Exam - Vital signs Vitals: Resp BP Pulse Ox 18 117/49 L 95 01/22/19 01:37 01/22/19 01:37 01/22/19 01:37 - Notes Notes: PHYSICAL EXAMINATION: GENERAL: Well-appearing, well-nourished and in no acute distress. HEAD: Atraumatic, normocephalic. EYES: Pupils equal round and reactive to light, extraocular movements intact, conjunctiva are normal. ENT: Nares patent, oropharynx clear without exudates. Moist mucous membranes. NECK: Normal range of motion, supple without lymphadenopathy LUNGS: Breath sounds clear to auscultation bilaterally and equal. No wheezes rales or rhonchi. HEART: Regular rate and rhythm without murmurs ABDOMEN: Soft, nontender, nondistended abdomen. No guarding, no rebound. No masses appreciated. Female : deferred Musculoskeletal: Contractures of the upper and lower extremity. NEUROLOGICAL: Cranial nerves grossly intact. Normal speech, normal gait. Normal sensory, motor exams PSYCH: Normal mood, normal affect. SKIN: Warm, Dry, normal turgor, no rashes or lesions noted. Course - Re-evaluation Re-evalutation: 01/25/19 09:44 Microbiology 01/22/19 03:19 Blood Culture - Preliminary Blood NO GROWTH AFTER 72 HOURS 01/22/19 02:00 Blood Culture - Preliminary Blood NO GROWTH AFTER 72 HOURS 01/22/19 02:20 Urine Culture - Final Catheterized Urine Enterococcus Faecalis(Group D) Laboratory 01/22/19 01/22/19 01/22/19 02:00 02:00 02:00 WBC 5.9 RBC 3.55 L Hgb 10.6 L Hct 31.5 L MCV 89 MCH 29.9 MCHC 33.7 RDW 21.1 H Plt Count 422 Seg Neutrophils % 57.9 Lymphocytes % 21.6 Monocytes % 15.9 H Eosinophils % 3.4 Basophils % 1.2 Absolute Neutrophils 3.4 Absolute Lymphocytes 1.3 Absolute Monocytes 0.9 Absolute Eosinophils 0.2 Absolute Basophils 0.1 Platelet Comment ADEQUATE Polychromasia 1+ Hypochromasia 1+ Anisocytosis 3+ PT 13.0 INR 0.98 VBG pH VBG pCO2 VBG HCO3 VBG Base Excess Sodium 136.2 L Potassium 5.2 H Chloride 98 Carbon Dioxide 28 Anion Gap 10 BUN 38 H Creatinine 0.74 Est GFR ( Amer) > 60 Est GFR (Non-Af Amer) > 60 Glucose 124 H POC Glucose Lactic Acid Calcium 9.9 Total Bilirubin 0.3 Direct Bilirubin 0.3 Neonat Total Bilirubin Not Reportable Neonat Direct Bilirubin Not Reportable Neonat Indirect Bili Not Reportable AST 34 ALT 50 Alkaline Phosphatase 179 H Troponin I NT-Pro-B Natriuret Pep Total Protein 6.5 Albumin 3.8 Urine Color Urine Appearance Urine pH Ur Specific Goff Urine Protein Urine Glucose (UA) Urine Ketones Urine Blood Urine Nitrite Urine Bilirubin Urine Urobilinogen Ur Leukocyte Esterase Urine WBC (Auto) Urine RBC (Auto) U Hyaline Cast (Auto) Urine Bacteria (Auto) Squamous Epi Cells Auto Urine Ascorbic Acid 01/22/19 01/22/19 01/22/19 02:00 02:00 02:00 WBC RBC Hgb Hct MCV MCH MCHC RDW Plt Count Seg Neutrophils % Lymphocytes % Monocytes % Eosinophils % Basophils % Absolute Neutrophils Absolute Lymphocytes Absolute Monocytes Absolute Eosinophils Absolute Basophils Platelet Comment Polychromasia Hypochromasia Anisocytosis PT INR VBG pH 7.41 VBG pCO2 44.3 VBG HCO3 27.7 VBG Base Excess 2.7 Sodium Potassium Chloride Carbon Dioxide Anion Gap BUN Creatinine Est GFR ( Amer) Est GFR (Non-Af Amer) Glucose POC Glucose Lactic Acid 1.4 Calcium Total Bilirubin Direct Bilirubin Neonat Total Bilirubin Neonat Direct Bilirubin Neonat Indirect Bili AST ALT Alkaline Phosphatase Troponin I 0.012 NT-Pro-B Natriuret Pep 650 H Total Protein Albumin Urine Color Urine Appearance Urine pH Ur Specific Goff Urine Protein Urine Glucose (UA) Urine Ketones Urine Blood Urine Nitrite Urine Bilirubin Urine Urobilinogen Ur Leukocyte Esterase Urine WBC (Auto) Urine RBC (Auto) U Hyaline Cast (Auto) Urine Bacteria (Auto) Squamous Epi Cells Auto Urine Ascorbic Acid 01/22/19 01/22/19 02:08 02:20 WBC RBC Hgb Hct MCV MCH MCHC RDW Plt Count Seg Neutrophils % Lymphocytes % Monocytes % Eosinophils % Basophils % Absolute Neutrophils Absolute Lymphocytes Absolute Monocytes Absolute Eosinophils Absolute Basophils Platelet Comment Polychromasia Hypochromasia Anisocytosis PT INR VBG pH VBG pCO2 VBG HCO3 VBG Base Excess Sodium Potassium Chloride Carbon Dioxide Anion Gap BUN Creatinine Est GFR ( Amer) Est GFR (Non-Af Amer) Glucose POC Glucose 114 H Lactic Acid Calcium Total Bilirubin Direct Bilirubin Neonat Total Bilirubin Neonat Direct Bilirubin Neonat Indirect Bili AST ALT Alkaline Phosphatase Troponin I NT-Pro-B Natriuret Pep Total Protein Albumin Urine Color YELLOW Urine Appearance CLEAR Urine pH 7.0 Ur Specific Goff 1.013 Urine Protein 30 H Urine Glucose (UA) NEGATIVE Urine Ketones NEGATIVE Urine Blood NEGATIVE Urine Nitrite NEGATIVE Urine Bilirubin NEGATIVE Urine Urobilinogen NEGATIVE Ur Leukocyte Esterase TRACE H Urine WBC (Auto) 10 Urine RBC (Auto) 5 U Hyaline Cast (Auto) 8 Urine Bacteria (Auto) 1+ Squamous Epi Cells Auto <1 Urine Ascorbic Acid 40 H Chest X-Ray 01/22/19 01:50 IMPRESSION: Clear lungs. Temp Pulse Resp BP Pulse Ox 97.9 F 19 124/52 L 96 01/22/19 05:01 01/22/19 05:01 01/22/19 05:01 01/22/19 05:01 01/25/19 18:21 88-year-old female with dementia, congestive heart failure, hyperlipidemia, hypertension, type 1 diabetes, hypothyroidism presents via EMS from home after the patient's found her to be hypotensive. states that he was attempting to help the patient walked to the bathroom when her knees buckled causing her to fall onto her butt. He was able to get her back onto the bed and when he checked her blood pressure he states the reading was 50/40. He states he did this several times with similar readings and decided to call 911. Upon EMS arrival they report that the patient was mildly hypoxic at 89%. She was hypotensive and did receive 500 cc of LR and upon her arrival blood pressure has improved to 110/57. Patient was recently discharged from [facility] on January 16, 2019 where she was admitted for hypotension, hyperkalemia and a UTI. At that time she was offered home health care but has been declined. Patient has no physical complaints. CBC is without leukocytosis and does show mild stable anemia. CMP is without electrolyte abnormality. Urinalysis not consistent with infection but urine culture will be sent. Patient's hypotension resolved with fluid administration. On review of previous admission patient's labs are much improved. Upon her last discharge she was offered skilled rehab which the has been refused. feels comfortable with discharge home. - Vital Signs Vital signs: Temp Pulse Resp BP Pulse Ox 97.9 F 19 124/52 L 96 01/22/19 05:01 01/22/19 05:01 01/22/19 05:01 01/22/19 05:01 - Laboratory Result Diagrams: 01/22/19 02:00 01/22/19 02:00 Laboratory results interpreted by me: 01/22/19 01/22/19 01/22/19 02:00 02:00 02:00 RBC 3.55 L Hgb 10.6 L Hct 31.5 L RDW 21.1 H Monocytes % 15.9 H Sodium 136.2 L Potassium 5.2 H BUN 38 H Glucose 124 H POC Glucose Alkaline Phosphatase 179 H NT-Pro-B Natriuret Pep 650 H Urine Protein Ur Leukocyte Esterase Urine Ascorbic Acid 01/22/19 01/22/19 02:08 02:20 RBC Hgb Hct RDW Monocytes % Sodium Potassium BUN Glucose POC Glucose 114 H Alkaline Phosphatase NT-Pro-B Natriuret Pep Urine Protein 30 H Ur Leukocyte Esterase TRACE H Urine Ascorbic Acid 40 H - Diagnostic Test Radiology reviewed: Image reviewed, Reports reviewed Discharge - Discharge Clinical Impression: Weakness Hypotension Qualifiers: Hypotension type: unspecified hypotension type Qualified Code(s): I95.9 - Hypotension, unspecified Condition: Fair Disposition: HOME, SELF-CARE Instructions: Weakness (OM) Additional Instructions: Follow up with your [id number] hours for further care or return to the ED IMMEDIATELY if symptoms worsen or you have any concerns. If you cannot afford to follow up with your primary care physician a list of low cost clinics have been provided at the end of your discharge papers as well. Most prescribed medications have multiple side effects. The safest thing to do is when filling your prescription speak to your pharmacist regarding possible interactions with your normal home medications and over the counter medications such as Ibuprofen, Tylenol, Benadryl. If you experience any symptoms that cause you discomfort or concern you should discontinue the medication immediately and return to the emergency room or call your primary care physician. Forms: Elevated Blood Pressure Referrals: CORAZON CARRION PA-C [Primary Care Provider] - Follow up tomorrow
[2019-01-22 02:21] LABS: VENOUS BLOOD BASE EXCESS 2.7 mmol/L; VENOUS BLOOD HCO3 27.7 mmol/L (20-32); VENOUS BLOOD PCO2 44.3 mmHg (35-63); VENOUS BLOOD PH 7.41 (7.30-7.42)
[2019-01-22 02:22] LABS: ABSOLUTE BASOPHILS # (AUTO) 0.1 10^3/uL (0.0-0.2); ABSOLUTE EOSINOPHILS # (AUTO) 0.2 10^3/uL (0.0-0.6); ABSOLUTE LYMPHOCYTES (AUTO) 1.3 10^3/uL (0.5-4.7); ABSOLUTE MONOCYTES (AUTO) 0.9 10^3/uL (0.1-1.4); ABSOLUTE NEUT (AUTO) 3.4 10^3/uL (1.7-8.2); TOTAL CELLS COUNTED % (AUTO) 100 %
[2019-01-22 02:32] LABS: BASOPHILS % (AUTO) 1.2 % (0-2); EOSINOPHILS % (AUTO) 3.4 % (0-6); HEMATOCRIT 31.5 % (36.0-47.0); HEMOGLOBIN 10.6 g/dL (12.0-15.5); LYMPHOCYTES % (AUTO) 21.6 % (13-45); MEAN CORPUSCULAR HEMOGLOBIN 29.9 pg (27.0-33.4); MEAN CORPUSCULAR HGB CONC 33.7 g/dL (32.0-36.0); MEAN CORPUSCULAR VOLUME 89 fl (80-97); MONOCYTES % (AUTO) 15.9 % (3-13); PLATELET COUNT 422 10^3/uL (150-450); RED BLOOD COUNT 3.55 10^6/uL (3.72-5.28); RED CELL DISTRIBUTION WIDTH 21.1 % (11.5-14.0); SEGMENTED NEUTROPHILS % (AUTO) 57.9 % (42-78); WHITE BLOOD COUNT 5.9 10^3/uL (4.0-10.5)
[2019-01-22 02:33] LABS: INTERNATIONAL RATION (INR) 0.98
[2019-01-22 02:35] LABS: APPEARANCE,URINE CLEAR; BILIRUBIN,URINE NEGATIVE (NEGATIVE); COLOR,URINE YELLOW; GLUCOSE, URINE NEGATIVE (NEGATIVE); KETONES,URINE NEGATIVE (NEGATIVE); LEUKOCYTE ESTERASE,URINE TRACE (NEGATIVE); NITRITE,URINE NEGATIVE (NEGATIVE); PROTEIN,URINE 30 mg/dL (NEGATIVE); URINE SPECIFIC GRAVITY 1.013; UROBILINOGEN,URINE NEGATIVE mg/dL (<2.0)
[2019-01-22 02:40] LABS: ALBUMIN 3.8 g/dL (3.5-5.0); ALKALINE PHOSPHATASE 179 U/L (38-126); ANION GAP 10 (5-19); ASPARTATE AMINO TRANSFERASE 34 U/L (14-36); BILIRUBIN,DIRECT 0.3 mg/dL (0.0-0.4); BILIRUBIN,TOTAL 0.3 mg/dL (0.2-1.3); BLOOD UREA NITROGEN 38 mg/dL (7-20); CALCIUM 9.9 mg/dL (8.4-10.2); CARBON DIOXIDE 28 mmol/L (22-30); CHLORIDE 98 mmol/L (98-107); GLUCOSE 124 mg/dL (75-110); POTASSIUM 5.2 mmol/L (3.6-5.0); TOTAL PROTEIN 6.5 g/dL (6.3-8.2)
[2019-01-22 02:52] LABS: TROPONIN I 0.012 ng/mL
[2019-01-22 03:01] LABS: ANISOCYTOSIS 3+; HYPOCHROMASIA 1+; PLATELET COMMENT ADEQUATE; POLYCHROMASIA 1+
--- NOTE | 2019-01-22 03:15 | RADIOLOGY REPORT (SQ) ---
CLINICAL HISTORY: hypoxia COMPARISON: 01/14/2019. TECHNIQUE: XR CHEST 1 VIEW 01/22/2019 1:50 AM CDT FINDINGS: Cardiac silhouette is normal in size. Lungs are clear without consolidation, atelectasis, mass or edema. There is no pleural effusion. There is no pneumothorax. There are no acute osseous findings. The right diaphragm is elevated. There are surgical clips in the right axilla. IMPRESSION: Clear lungs.
[2019-01-22] MEDS ORDERED: NORMAL SALINE 500 ML IV ONE (03:23)
[2019-01-22 05:16] VITALS: BP 124/52
--- NOTE | 2019-01-22 09:35 | EKG REPORT ---
SEVERITY:- ABNORMAL ECG - SINUS RHYTHM LEFT AXIS DEVIATION LEFT VENTRICULAR HYPERTROPHY : Confirmed by: Regino Aguayo MD 22-Jan-2019 09:34:34
== END 2019-01-22 05:20 | disposition home or self-care (01) ==
LOC: ER 01:27
DX: R53.1 Weakness (principal); I95.9 Hypotension, unspecified; I50.9 Heart failure, unspecified; I11.0 Hypertensive heart disease with heart failure; E10.9 Type 1 diabetes mellitus without complications; F03.90 Unspecified dementia, unspecified severity, without behavioral disturbance, psychotic disturbance, mood disturbance, and anxiety; J44.9 Chronic obstructive pulmonary disease, unspecified
CPT/HCPCS: 93005; 99284; 96360; 36415; 87040; 87086; 82962; 85025; 85610; 87088; 80053; 81001; 84484; 87186; 82803; 83605; 83880; 71045; 93010; J7040

== ENCOUNTER → 2019-02-22 | Outpatient (CLI) | payer MEDICARE, OTHER ==
[2019-02-22 16:52] LABS: HEMATOCRIT 35.3 % (36.0-47.0); HEMOGLOBIN 11.7 g/dL (12.0-15.5); MEAN CORPUSCULAR HEMOGLOBIN 30.5 pg (27.0-33.4); MEAN CORPUSCULAR HGB CONC 33.1 g/dL (32.0-36.0); MEAN CORPUSCULAR VOLUME 92 fl (80-97); PLATELET COUNT 305 10^3/uL (150-450); RED BLOOD COUNT 3.82 10^6/uL (3.72-5.28); WHITE BLOOD COUNT 5.6 10^3/uL (4.0-10.5)
[2019-02-22 17:19] LABS: ANION GAP 11 (5-19); BLOOD UREA NITROGEN 51 mg/dL (7-20); CALCIUM 9.7 mg/dL (8.4-10.2); CARBON DIOXIDE 25 mmol/L (22-30); CHLORIDE 100 mmol/L (98-107); GLUCOSE 115 mg/dL (75-110)
== END ==
LOC: OD 15:20
PROVIDERS: ATTEND Internal Medicine Nephrology
DX: E87.5 Hyperkalemia (principal); E11.9 Type 2 diabetes mellitus without complications; E83.42 Hypomagnesemia; D50.9 Iron deficiency anemia, unspecified
CPT/HCPCS: 36415; 80048; 84132; 85027

== ENCOUNTER → 2019-03-30 | Outpatient (CLI) | payer MEDICARE, OTHER ==
--- NOTE | 2019-03-30 15:31 | RADIOLOGY REPORT (SQ) ---
EXAM DESCRIPTION: CHEST 2 VIEWS COMPLETED DATE/TIME: 03/30/2019 2:24 pm REASON FOR STUDY: J69.0 PNEUMONITIS DUE TO INHALATION OF FOOD AND VOMIT COMPARISON: 01/22/2019 and 05/18/2018. EXAM PARAMETERS: NUMBER OF VIEWS: two views TECHNIQUE: Digital Frontal and Lateral radiographic views of the chest acquired. RADIATION DOSE: NA LIMITATIONS: none FINDINGS: LUNGS AND PLEURA: Chronic elevation of the right hemidiaphragm. Chronic interstitial cerna ges. No focal infiltrates, masses or pneumothorax. No pleural effusion. MEDIASTINUM AND HILAR STRUCTURES: No masses or contour abnormalities. HEART AND VASCULAR STRUCTURES: Heart normal size. No evidence for failure. BONES: No acute findings. HARDWARE: None in the chest. OTHER: No other significant finding. IMPRESSION: STABLE CHRONIC FINDINGS. NO ACUTE RADIOGRAPHIC FINDING IN THE CHEST. TECHNICAL DOCUMENTATION: JOB ID: [id number] [employer]- All Rights Reserved Reading location - IP/workstation name: [email or web address]
== END ==
LOC: RAD 14:03
PROVIDERS: ATTEND Internal Medicine Pulmonary Disease
DX: J69.0 Pneumonitis due to inhalation of food and vomit (principal)
CPT/HCPCS: 71046

== ENCOUNTER 2019-05-30 01:39 | Emergency (ER) | payer MEDICARE, OTHER ==
--- NOTE | 2019-05-30 02:56 | ER Document Report ---
ED General - General Chief Complaint: Weakness Stated Complaint: WEAKNESS Time Seen by Provider: 05/30/19 02:19 Primary Care Provider: Bartolo DANG MD [ACTIVE STAFF] - Follow up as needed Information source: Relative - Is been Notes: This 89-year-old woman presents to the emergency department with a history of generalized weakness and decreased responsiveness which began earlier tonight. Apparently her is concerned that she may have a urinary tract infection, states that the urine has a foul odor. She has a complaint of feeling poorly and history of mini strokes in the past. Past medical history is positive for type 2 diabetes mellitus, hypothyroidism, congestive heart failure, hypertension and restless leg syndrome. TRAVEL OUTSIDE OF THE [place] IN LAST 30 DAYS: No - Related Data Allergies/Adverse Reactions: diazepam [From Valium] Allergy (Verified 05/18/18 04:54) Past Medical History - Social History Smoking Status: Unknown if Ever Smoked Chew tobacco use (# tins/day): No Frequency of alcohol use: None Drug Abuse: None Family History: CAD, Hypertension Patient has suicidal ideation: No Patient has homicidal ideation: No - Past Medical History Cardiac Medical History: Reports: Hx Congestive Heart Failure, Hx Hypercholesterolemia, Hx Hypertension Denies: Hx Coronary Artery Disease, Hx Heart Attack Pulmonary Medical History: Reports: Hx COPD, Hx Pneumonia Denies: Hx Asthma, Hx Bronchitis, Hx Tuberculosis Neurological Medical History: Reports: Hx Cerebrovascular Accident. 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 Denies: Hx Hysterectomy - Immunizations Hx Diphtheria, Pertussis, Tetanus Vaccination: Yes Hx Pneumococcal Vaccination: 06/14/12 Review of Systems - Review of Systems Notes: Constitutional: Negative for fever. HENT: Negative for sore throat. Eyes: Negative for visual changes. Cardiovascular: Negative for chest pain. Respiratory: Negative for shortness of breath. Gastrointestinal: Negative for abdominal pain, vomiting or diarrhea. Genitourinary: Negative for dysuria. Musculoskeletal: Negative for back pain. Skin: Negative for rash. Neurological: + Drowsiness, no headaches, weakness or numbness. 10 point ROS negative except as marked above and in HPI. Physical Exam - Vital signs Vitals: Resp Pulse Ox 14 99 05/30/19 01:51 05/30/19 01:51 - Notes Notes: PHYSICAL EXAMINATION: Physical Exam: General: Elderly female in no acute distress, easily aroused HEENT: NC/AT, pupils equal round and reactive to light, MM moist,nares clear, Neck: supple, no adenopathy, no masses. Lungs: clear, no wheezing, no rales no rhonchi CVS: Regular rate and rhythm no murmur gallop or rub Abdomen: Soft active nontender, no masses, no hepatosplenomegaly Ext: No edema clubbing or cyanosis. Neuro: Drowsy, responsive, moving all 4 extremities on command, cranial nerves intact. Skin: Intact no open lesions, no rash PSYCH: Normal mood, normal affect. Course - Re-evaluation Re-evalutation: 05/30/19 05:24 89-year-old woman with generalized weakness and history of mini strokes, breast CA and increase potassium level found to have urinary tract infection, no elevated white count or fever. She also has a history of CHF and hypertension. We are given a gram of Rocephin in the emergency department and patient will be discharged home on oral antibiotics for 10 days. Discussed the follow-up plan with the who is in agreement with treatment and follow-up. - Vital Signs Vital signs: Temp Pulse Resp BP Pulse Ox 98.1 F 18 88/51 L 97 05/30/19 02:06 05/30/19 04:01 05/30/19 04:01 05/30/19 04:01 - Laboratory Result Diagrams: 05/30/19 01:55 05/30/19 01:55 Laboratory results interpreted by me: 05/30/19 05/30/19 05/30/19 01:55 01:55 04:15 RBC 3.52 L Hgb 10.9 L Hct 32.3 L Cottle % (Auto) 15.8 H Chloride 96 L BUN 23 H Glucose 116 H Alkaline Phosphatase 136 H Urine Protein 30 H Urine Nitrite (Reflex) POSITIVE H Leukocyte Esterase Rfl TRACE H Urine Ascorbic Acid 40 H I have reviewed laboratory data and used this information for the treatment decisions regarding the patient. Discharge - Discharge Clinical Impression: Acute UTI, Generalized weakness Dementia Qualifiers: Dementia type: unspecified type Dementia behavioral disturbance: without behavioral disturbance Qualified Code(s): F03.90 - Unspecified dementia without behavioral disturbance Condition: Good Disposition: HOME, SELF-CARE Instructions: Urinary Tract Infection ([facility]), Cephalexin ([facility]) Additional Instructions: Your urine shows findings consistent with a urinary tract infection. Please take all the antibiotics as directed even if your symptoms have improved. Please follow-up with your primary care physician as needed. Return to emergency room if you develop fever >101F, persistent vomiting, become lethargic, have severe pain in your sides, or any other symptoms that are concerning to you. Referrals: Bartolo DANG MD [ACTIVE STAFF] - Follow up as needed
[2019-05-30 04:15] LABS: ABSOLUTE BASOPHILS # (AUTO) 0.1 10^3/uL (0.0-0.2); ABSOLUTE EOSINOPHILS # (AUTO) 0.1 10^3/uL (0.0-0.6); ABSOLUTE LYMPHOCYTES (AUTO) 1.3 10^3/uL (0.5-4.7); ABSOLUTE MONOCYTES (AUTO) 0.9 10^3/uL (0.1-1.4); ABSOLUTE NEUT (AUTO) 3.1 10^3/uL (1.7-8.2); BASOPHILS % (AUTO) 1.4 % (0-2); EOSINOPHILS % (AUTO) 1.5 % (0-6); HEMATOCRIT 32.3 % (36.0-47.0); HEMOGLOBIN 10.9 g/dL (12.0-15.5); LYMPHOCYTES % (AUTO) 24.2 % (13-45); MEAN CORPUSCULAR HGB CONC 33.7 g/dL (32.0-36.0); MEAN CORPUSCULAR VOLUME 92 fl (80-97); MONOCYTES % (AUTO) 15.8 % (3-13); PLATELET COUNT 368 10^3/uL (150-450); RED BLOOD COUNT 3.52 10^6/uL (3.72-5.28); RED CELL DISTRIBUTION WIDTH 13.6 % (11.5-14.0); SEGMENTED NEUTROPHILS % (AUTO) 57.1 % (42-78); TOTAL CELLS COUNTED % (AUTO) 100 %; WHITE BLOOD COUNT 5.5 10^3/uL (4.0-10.5)
[2019-05-30 04:31] LABS: ALBUMIN 3.5 g/dL (3.5-5.0); ALKALINE PHOSPHATASE 136 U/L (38-126); ANION GAP 13 (5-19); ASPARTATE AMINO TRANSFERASE 29 U/L (14-36); BILIRUBIN,DIRECT 0.2 mg/dL (0.0-0.4); BILIRUBIN,TOTAL 0.3 mg/dL (0.2-1.3); BLOOD UREA NITROGEN 23 mg/dL (7-20); CALCIUM 10.1 mg/dL (8.4-10.2); CARBON DIOXIDE 28 mmol/L (22-30); CHLORIDE 96 mmol/L (98-107); GLUCOSE 116 mg/dL (75-110); TOTAL PROTEIN 6.4 g/dL (6.3-8.2)
[2019-05-30 04:41] LABS: APPEARANCE,URINE SLIGHTLY-CLOUDY; BILIRUBIN,URINE NEGATIVE (NEGATIVE); COLOR,URINE YELLOW; GLUCOSE, URINE NEGATIVE (NEGATIVE); KETONES,URINE NEGATIVE (NEGATIVE); PROTEIN,URINE 30 mg/dL (NEGATIVE); URINE SPECIFIC GRAVITY 1.013; UROBILINOGEN,URINE NEGATIVE mg/dL (<2.0)
[2019-05-30] MEDS ORDERED: CEFTRIAXONE INJ 1000 MG VIAL IV ONE (05:23)
--- NOTE | 2019-05-30 06:42 | RADIOLOGY REPORT (SQ) ---
CT head without contrast on 05/30/2019 at 5:12 AM CLINICAL INDICATION: Altered mental status TECHNIQUE: Multiple axial images are obtained throughout the head without the administration of contrast. This exam was performed according to our departmental dose-optimization program, which includes automated exposure control, adjustment of the mA and/or kV according to patient size and/or use of iterative reconstruction technique. Total DLP is 1043.77 mGy*cm. COMPARISON: 01/14/2019 FINDINGS: There is generalized cerebral atrophy. There is a small old right occipital infarct again noted. There is low-density in the periventricular white matter consistent with chronic small vessel ischemic changes. There is an old right basal ganglia lacunar infarct extending into the moreira radiata again noted. There is no CT evidence of acute infarct. There is no hemorrhage. There are no abnormal extra-axial fluid collections. There is no mass, mass effect or midline shift. No bony abnormality is noted. IMPRESSION: Stable examination with no acute intracranial abnormality.
[2019-05-30 08:35] VITALS: BP 105/52
== END 2019-05-30 08:33 | disposition home or self-care (01) ==
LOC: ER 01:39
DX: N39.0 Urinary tract infection, site not specified (principal); R53.1 Weakness; F03.90 Unspecified dementia, unspecified severity, without behavioral disturbance, psychotic disturbance, mood disturbance, and anxiety; E11.9 Type 2 diabetes mellitus without complications; Z79.84 Long term (current) use of oral hypoglycemic drugs; E03.9 Hypothyroidism, unspecified; I50.9 Heart failure, unspecified; I11.0 Hypertensive heart disease with heart failure; G25.81 Restless legs syndrome; E78.00 Pure hypercholesterolemia, unspecified; Z86.73 Personal history of transient ischemic attack (TIA), and cerebral infarction without residual deficits; Z85.3 Personal history of malignant neoplasm of breast
CPT/HCPCS: 36415; 85025; 80053; 81001; 70450; J0696

== ENCOUNTER → 2019-07-06 | Outpatient (CLI) | payer MEDICARE, OTHER ==
--- NOTE | 2019-07-06 11:37 | RADIOLOGY REPORT (SQ) ---
EXAM DESCRIPTION: YADIRAIE SWALLOW COMPLETED DATE/TIME: 07/06/2019 10:40 am REASON FOR STUDY: DYSPHAGIA R47.02 DYSPHASIA CVA, CHOKING AND COUGHING WITH MEALS COMPARISON: None. TECHNIQUE: Videofluoroscopic swallowing examination was performed in conjunction with speech patholo gy. Videofluoroscopic imaging was obtained and reviewed and these are the findings: RADIATION DOSE: 4.5 minutes of fluoroscopy was used. 1 images saved to PACS. LIMITATIONS: None FINDINGS: The patient was brought into the fluoro room and placed upright on a modified barium swall ow chair. The patient was then given multiple consistencies mixed with barium to swallow under live fluoroscopic video guidance. According to the Speech Pathologist there was laryngeal penetration and aspiration of thin liquids. Post swallow residual contrast within the vallecula and piriform sinuses . IMPRESSION: LARYNGEAL PENETRATION AND ASPIRATION ABOVE. PLEASE SEE SPEECH PATHOLOGIST REPORT FOR OTHER FINDINGS AND RECOMMENDATIONS. COMMENT: Quality ID [id number]: Final reports for procedures using fluoroscopy that document radiation exp osure indices, or exposure time and number of fluorographic images (if radiation exposure indices are not available) TECHNICAL DOCUMENTATION: JOB ID: [id number] [employer]- All Rights Reserved Reading location - IP/workstation name: [email or web address]
--- NOTE | 2019-07-06 15:59 | ST Modified Barium Swallow ---
Recommendation - Recommendations Recommendations: Recommend nectar thick liquids and mechanical soft solids. Patient still at some risk of aspiration on thicker textures due to pharyngeal residue. Medical Diagnoses - Medical Diagnoses Medical Diagnosis Description & ICD-10 Code(s): dysphagia R13.10 Other Medical Diagnoses/Co-Morbidities: patient reports prior CVAs, CHF - ICD-10 Tx Diagnosis Coding (1) Dysphagia status post cerebrovascular accident ICD-10 Code(s): I69.391 - DYSPHAGIA FOLLOWING CEREBRAL INFARCTION ST Modified Barium Swallow - General Date: 07/06/19 Referring Physician: Soraida Tee PA-C Risks/Precautions: Falls, Aspiration Date of Onset: 06/14/18 - unknow exact date of onset Reason for Referral: dysphagia - History History obtained from: Spouse -: Medical - Ms. Urrutia was accompanied by her , who acted as primary historian. The patient's reports that the patient has had "at least 13 mini strokes". He also describes a mobile FEES being performed some time ago, which recommended nectar thick liquids for the patient. Unsure of solid texture recommendations. The reports that recently, the patient does not want thickened liquids, and has been drinking thin for 3-4 weeks. For solids, patient states "she eats whatever she wants". The does endorse a lot of coughing with meals. Medications: no list provided Allergies: per : valium - Functional Status Prior Functional Status: INDEPENDENT: feeding - assisted dysphagia Current Functional Limitations: feeding - signs of aspiration reported - Subjective Patient/caregiver goal(s): safe swallow Cognitive-Linguistic Function: Moderately Impaired Speech Intelligibility: Mildly dysarthric Current Nutritional Means: PO Current PO diet: Regular, Thickened liquids - nectar liquids previously recommended, patient reportedly drinking thin at home Current symptoms: Coughing, other - history of dypshagia post CVA Pain: Patient reports, 0/5 - Objective Assessment: Upright, Left Lateral - Food Trials Used Food trials used: Thin liquids, [place] thick liquids, Pureed, Regular The patient: fed by ST - Oral-Motor Skills Dentition: Edentulous Velo-pharyngeal function: Unremarkable - Assessment Oral prep: Mildly Impaired Labial closure: Adequate Leakage: None Mastication: Lengthy Lingual Movement: Discoordinated Oral stage: Moderately Impaired Oral Stage: perseverative chewing seen, piecemeal swallow - Pharyngeal Stage Initiation of Pharyngeal Stage Reflex: Delayed - swallow triggered with bolus well established in valleculae Decreased laryngeal elevation: Yes Reduced Velopharyngeal Closure: no Reduced pressure generation: Yes reduced tongue-based retraction: Yes Pre-swallow pooling in valleculae: Moderate Pre-Swallow pooling in pyriforms: Mild Reduced Thyro-Hyoid approximation: No Multiple Swallows with: Effective - max cues needed for multiple swallows Post-swallow residulas vallecular: Significant Post-Swallow residuals in pyriforms: Significant Post-Swallow Residuals: throughout pharynx - Fall Risk Assessment Medications/Conditions that increase fall risks include: Antidepressants, sedatives, anti-arrhythmic, diuretic, benzodiazipenes, neuroleptics. BP regulation problems, cardiac problems, balance or gait deficits, neurological problems. Is patient considered at risk for falls: yes Fall Risk Actions Taken: No action needed - Behavioral Observations During evaluation process patient: was cooperative - Treatment / Educational Needs: Treatment/Education Needs: Treatment consisted of patient education on the role of the Speech Pathologist. Patient's plan of care and golas were communicated as well as scheduling and attendance policies. Recommendations for initial home program were shared. Patient demonstrated understanding and verbalized agreement. - Impression/Summary Laryngeal Penetration: Yes Tracheal Aspiration: yes Productive cough: No Compesatory strategies: decreased residue with alternating bites and sips. Patient unable to follow directions well enough for other strategies. Patient presents with: Pharyngeal stage dysph., Severe Risk of Aspiration: Severe Evaluation and Findings: Patient demonstrated aspiration of thin liquids during the swallow due to delayed swallow reflex, reduced airway closure, and reduced pharyngeal constriction. This also resulted in significant residue after the swallow with other, thicker textures. No aspiration seen on nectar liquids, although some penetration was seen. Perseverative chewing seen with solid texutes, requiring external cuing to swallow. Residue partially cleard with liquid wash. - Recommendations Solid diet recommendations: Mechanical Soft Liquid Diet Modification: [place]-Thick Strict aspiration precautions: Yes Pt/Family education and followup with MD: Yes Recommended techniques: Fully Upright During Meal, Small Bites and Sips, Alternate Bites/Sips Supervision: requires assistance Information, Precautions and Recommendations: Family Member (Written), Family Member (Verbal) Other recommendations: Discussed aspiration risk with thin liquids and recommendation for nectar thick liquids. However, patient has previously indicated that she did not want nectar thick liquids. Educational handouts provided for patient and to make informed decision regarding diet textures. - Time Total Time: 30 - Plan of Care Strategies to optimize patient understanding include:: ongoing assessment of educational needs, implementation of educational strategies, and re-education. - - -: Thank you for the opportunity to work with this patient and his/her family. Should you have any questions about this patient's plan or progress, I can be reached at [phone].
== END ==
LOC: RAD 09:16
PROVIDERS: ATTEND Physician Assistant
DX: T17.908A Unspecified foreign body in respiratory tract, part unspecified causing other injury, initial encounter (principal); R47.02 Dysphasia; R13.10 Dysphagia, unspecified
CPT/HCPCS: 74230

== ENCOUNTER 2019-07-11 03:55 | Inpatient (IN) | payer MEDICARE, OTHER ==
[2019-07-11 04:20] LABS: ARTERIAL BLOOD BASE EXCESS 6.2 mmol/L; ARTERIAL BLOOD H2CO3 1.37 mmol/L (1.05-1.35); ARTERIAL BLOOD HCO3 30.8 mmol/L (20-24); ARTERIAL BLOOD O2 SATURATION 95.4 % (94-98); ARTERIAL BLOOD PCO2 45.4 mmHg (35-45); ARTERIAL BLOOD PH 7.45 (7.35-7.45); ARTERIAL BLOOD PO2 74.5 mmHg (80-100); ARTERIAL BLOOD TOTAL CO2 32.2 mmol/L (21-25)
[2019-07-11 04:21] LABS: ARTERIAL BLOOD FIO2 50%
[2019-07-11 04:34] LABS: ABSOLUTE LYMPHOCYTES (AUTO) 0.6 10^3/uL (0.5-4.7); ABSOLUTE MONOCYTES (AUTO) 0.5 10^3/uL (0.1-1.4); ABSOLUTE NEUT (AUTO) 5.9 10^3/uL (1.7-8.2); BASOPHILS % (AUTO) 0.5 % (0-2); EOSINOPHILS % (AUTO) 0.4 % (0-6); HEMATOCRIT 25.1 % (36.0-47.0); HEMOGLOBIN 8.4 g/dL (12.0-15.5); LYMPHOCYTES % (AUTO) 9.1 % (13-45); MEAN CORPUSCULAR HEMOGLOBIN 29.2 pg (27.0-33.4); MEAN CORPUSCULAR HGB CONC 33.4 g/dL (32.0-36.0); MEAN CORPUSCULAR VOLUME 87 fl (80-97); MONOCYTES % (AUTO) 6.7 % (3-13); PLATELET COUNT 501 10^3/uL (150-450); RED BLOOD COUNT 2.88 10^6/uL (3.72-5.28); RED CELL DISTRIBUTION WIDTH 13.8 % (11.5-14.0); SEGMENTED NEUTROPHILS % (AUTO) 83.3 % (42-78); TOTAL CELLS COUNTED % (AUTO) 100 %; WHITE BLOOD COUNT 7.1 10^3/uL (4.0-10.5)
[2019-07-11 04:45] LABS: ALBUMIN 3.2 g/dL (3.5-5.0); ALKALINE PHOSPHATASE 116 U/L (38-126); ANION GAP 11 (5-19); ASPARTATE AMINO TRANSFERASE 30 U/L (14-36); BILIRUBIN,TOTAL 0.5 mg/dL (0.2-1.3); BLOOD UREA NITROGEN 21 mg/dL (7-20); CALCIUM 8.6 mg/dL (8.4-10.2); CARBON DIOXIDE 30 mmol/L (22-30); CHLORIDE 97 mmol/L (98-107); GLUCOSE 167 mg/dL (75-110); POTASSIUM 3.4 mmol/L (3.6-5.0); TOTAL PROTEIN 5.9 g/dL (6.3-8.2)
[2019-07-11 04:45] LABS: APPEARANCE,URINE SLIGHTLY-CLOUDY; BILIRUBIN,URINE NEGATIVE (NEGATIVE); COLOR,URINE YELLOW; GLUCOSE, URINE NEGATIVE (NEGATIVE); KETONES,URINE NEGATIVE (NEGATIVE); PROTEIN,URINE 100 mg/dL (NEGATIVE); URINE SPECIFIC GRAVITY 1.015; UROBILINOGEN,URINE NEGATIVE mg/dL (<2.0)
[2019-07-11 04:50] LABS: INTERNATIONAL RATION (INR) 1.19; PROTHROMBIN TIME 15.2 SEC (11.4-15.4)
[2019-07-11 04:58] LABS: TROPONIN I 0.029 ng/mL
--- NOTE | 2019-07-11 05:22 | RADIOLOGY REPORT (SQ) ---
EXAM: XR Chest, 1 View EXAM DATE/TIME: 07/11/2019 04:39 AM CLINICAL HISTORY: The patient is 89 years old and is Female; dyspnea TECHNIQUE: Frontal view of the chest. COMPARISON: Chest radiograph from 03/30/2019 FINDINGS: LUNGS: Minimal linear densities in the left lung base suggest subsegmental atelectasis or scarring. The lungs are otherwise clear. No consolidation visualized. PLEURAL SPACE: Unremarkable. No pneumothorax. HEART: Mild enlargement of the cardiac silhouette. MEDIASTINUM: Unremarkable. BONES/JOINTS: No acute osseous findings. VASCULATURE: Atherosclerotic calcifications are visualized within the aorta. UPPER ABDOMEN: Persistent mild elevation of the right hemidiaphragm. Calcified granulomas noted in the spleen. IMPRESSION: No acute findings visualized in the chest.
[2019-07-11] MEDS ORDERED: CEFTRIAXONE 1 GM/D5W RTU 1 GM/50 ML RTUPB IV ONE (06:10)
[2019-07-11] MEDS ORDERED: MAGNESIUM HYDROXIDE SUSP 30 ML UDCUP PO PRN (06:38)
[2019-07-11] MEDS ORDERED: MAG HYDROX/AL HYDROX/SIMETH SUSP 30 ML UDCUP PO PRN (06:38)
[2019-07-11] MEDS ORDERED: ONDANSETRON HCL INJ/PF 4 MG/2 ML SDV IV PRN (06:38)
[2019-07-11] MEDS ORDERED: ACETAMINOPHEN 325 MG TABLET PO PRN (06:38)
[2019-07-11] MEDS ORDERED: MORPHINE SULFATE 10 MG/ML INJ IV PRN (06:46)
[2019-07-11] MEDS ORDERED: LEVALBUTEROL HCL NEB 0.63 MG/3 ML AMPUL NEB PRN (06:46)
[2019-07-11] MEDS ORDERED: DEXTROSE 50%-WATER 25 GM/50 ML DISP.SYRIN IV PRN ×2 (06:47)
[2019-07-11] MEDS ORDERED: GLUCAGON,HUMAN RECOMB 1 MG INJ IM PRN (06:47)
[2019-07-11] MEDS ORDERED: DEXTROSE 40% GEL 15 GM TUBE PO PRN ×2 (06:47)
--- NOTE | 2019-07-11 06:56 | ER Document Report ---
ED General - General Chief Complaint: Shortness Of Breath Stated Complaint: TROUBLE BREATHING Time Seen by Provider: 07/11/19 04:02 Primary Care Provider: CORAZON CARRION PA-C [Primary Care Provider] - Follow up as needed TRAVEL OUTSIDE OF THE [place] IN LAST 30 DAYS: No - HPI Notes: Patient is a very pleasant 89-year-old female, extremely hard of hearing, brought to the emergency department for evaluation of weakness and difficulty breathing. Patient's went to get out of bed and she was too weak to move. She seemed short of breath. According to EMS her SPO2 was in the 50s upon arrival. Patient denies any pain of any sort. She had no nausea or vomiting. She has had a diminished appetite. She denies any issues at this time. She has had some frequent urinary tract infections as of late per the . - Related Data Allergies/Adverse Reactions: diazepam [From Valium] Allergy (Verified 05/18/18 04:54) Home Medications: anastrozol 1mg po daily. asa 81mg daily. carvedilol 12.5mg bid. cozaar 100mg po daily]. lasix 20mgm po daily. hyydralazine 100mg po tid. lexapro 20mg po qd. lipitor 20mg po qd. metformin 500mg po bid. prevalite 4gm bid. requip 2mg po qhs. synthroid 137mcg po daily. nifedipine er 60mg po daily. Past Medical History - General Information source: Patient, Relative - Social History Smoking Status: Never Smoker Chew tobacco use (# tins/day): No Frequency of alcohol use: None Drug Abuse: None Family History: CAD, Hypertension Patient has suicidal ideation: No Patient has homicidal ideation: No - Past Medical History Cardiac Medical History: Reports: Hx Congestive Heart Failure, Hx Hypercholesterolemia, Hx Hypertension Denies: Hx Coronary Artery Disease, Hx Heart Attack Pulmonary Medical History: Reports: Hx COPD, Hx Pneumonia Denies: Hx Asthma, Hx Bronchitis, Hx Tuberculosis Neurological Medical History: Reports: Hx Cerebrovascular Accident. 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 Denies: Hx Hysterectomy - Immunizations Hx Diphtheria, Pertussis, Tetanus Vaccination: Yes Hx Pneumococcal Vaccination: 06/14/12 Review of Systems - Review of Systems Constitutional: See HPI EENT: No symptoms reported Cardiovascular: No symptoms reported Respiratory: See HPI Gastrointestinal: No symptoms reported Genitourinary: See HPI Musculoskeletal: No symptoms reported Skin: No symptoms reported Neurological/Psychological: No symptoms reported Physical Exam - Vital signs Vitals: Pulse Ox 100 07/11/19 03:56 - Notes Notes: This is a frail-appearing 89-year-old female who appears her stated age in no acute distress. She is hypoxic, but not showing increased work of breathing initially. Vital signs reviewed, please refer to chart. Head is normocephalic, atraumatic. Pupils equal round, reactive to light. Neck is supple without meningismus. Heart is regular rate and rhythm. Lungs reveal diminished breath sounds at the bases. Abdomen is soft, nontender, normoactive bowel sounds throughout. Extremities without cyanosis, clubbing. Posterior calves are nontender. Peripheral pulses are equal. Skin is warm and dry. Patient is awake, alert, cooperative with examiner. Course - Re-evaluation Re-evalutation: 07/11/19 06:52 Patient presents to the emergency department for evaluation. There is a very pleasant female who has multiple chronic medical conditions. I was concerned, as there was report from EMS, that she was hypotensive. She had been given IV fluids and responded well. She was also reported to be hypoxic. She had been on a nonrebreather, but she has a history of COPD, and I was concerned about her becoming hypercarbic. She was placed on a 50% Ventimask and maintaining oxygen around 92 to 94%. ABG was obtained. She did have some mild hypercarbia and hypoxemia despite this 50% FiO2. Decision was made to transfer her to [facility]. Laboratory investigations otherwise revealed a nitrate positive urine specimen. It was sent off for culture. She is given IV ceftriaxone. Given her comorbidities and hypoxemia, I spoke with Dr. Hodge. The patient will be admitted to medicine for further care. - Vital Signs Vital signs: Temp Pulse Resp BP Pulse Ox 97.4 F 19 105/60 97 07/11/19 04:25 07/11/19 05:01 07/11/19 05:01 07/11/19 05:01 - Laboratory Result Diagrams: 07/11/19 04:10 07/11/19 04:10 Laboratory results interpreted by me: 07/11/19 07/11/19 07/11/19 04:05 04:10 04:10 RBC 2.88 L Hgb 8.4 L Hct 25.1 L Plt Count 501 H Lymph % (Auto) 9.1 L Seg Neutrophils % 83.3 H Carbonic Acid 1.37 H ABG pCO2 45.4 H ABG pO2 74.5 L ABG HCO3 30.8 H ABG Total CO2 32.2 H Potassium 3.4 L Chloride 97 L BUN 21 H Est GFR (MDRD) Non-Af 54 L Glucose 167 H NT-Pro-B Natriuret Pep Total Protein 5.9 L Albumin 3.2 L Urine Protein Urine Nitrite (Reflex) Leukocyte Esterase Rfl 07/11/19 07/11/19 04:10 04:25 RBC Hgb Hct Plt Count Lymph % (Auto) Seg Neutrophils % Carbonic Acid ABG pCO2 ABG pO2 ABG HCO3 ABG Total CO2 Potassium Chloride BUN Est GFR (MDRD) Non-Af Glucose NT-Pro-B Natriuret Pep 4480 H Total Protein Albumin Urine Protein 100 H Urine Nitrite (Reflex) POSITIVE H Leukocyte Esterase Rfl SMALL H - Diagnostic Test Radiology reviewed: Image reviewed, Reports reviewed Radiology results interpreted by me: 07/11/19 06:54 Chest X-Ray 07/11/19 04:03 IMPRESSION: No acute findings visualized in the chest. - EKG Interpretation by Me Additional EKG results interpreted by me: 07/11/19 06:54 Sinus mechanism rate of 76 bpm. Left axis deviation. IVCD. PACs and PVCs noted. No acute ST changes concerning for ischemia or infarction. Discharge - Discharge Clinical Impression: Acute respiratory failure with hypoxemia, Generalized weakness Urinary tract infection Qualifiers: Urinary tract infection type: site unspecified Hematuria presence: without hematuria Qualified Code(s): N39.0 - Urinary tract infection, site not specified Condition: Stable Disposition: ADMITTED INPATIENT Unit Admitted: Telemetry Referrals: CORAZON CARRION PA-C [Primary Care Provider] - Follow up as needed
[2019-07-11 08:28] LABS: VENOUS BLOOD HCO3 33.7 mmol/L (20-32); VENOUS BLOOD PCO2 54.2 mmHg (35-63); VENOUS BLOOD PH 7.41 (7.30-7.42)
[2019-07-11] MEDS: FUROSEMIDE INJ/PF 40 MG/4 ML SDV IV SCH ×2 (08:50→21:31)
--- NOTE | 2019-07-11 09:01 | PDOC H&P ---
History of Present Illness Admission Date/PCP: 07/11/19 07:32 CORAZON CARRION PA-C Patient complains of: Hypoxia History of Present Illness: SANDY DANG is a 89 year old female with a history of diastolic heart failure, hypertension, COPD, diabetes, dementia and difficulty with hearing, who was brought into the hospital this morning after her called EMS after noting her to be difficult to arouse. On arrival of EMS, patient was noted to be significantly hypoxic in the 40s on room air and hypotensive in the 80s systolic. She was subsequently placed on a nonrebreather with reported sats improving to the high 80s and then brought into the hospital. In the ER, patient was de-escalated to a Ventimask at 50% with SPO2 improving to low 90%. Later transitioned to BiPAP with suspicion of fluid overload. Subsequently referred to hospitalist service for admission for acute on chronic congestive heart failure. Apparently, patient's reported that patient had missed some doses of her Lasix. Currently patient is more awake but is not at bedside. Patient denies any shortness of breath, chest pain orthopnea, lower extremity swelling but endorses some occasions of PND. Patient is not an adequate historian. 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 Psychiatric Medical History: Reports: Dementia Denies: Depression Hematology: Reports: Anemia Past Surgical History Past Surgical History: Reports: Appendectomy, Cholecystectomy, Mastectomy - right, Other - Unknown Denies: Hysterectomy Social History Smoking Status: Never Smoker Electronic Cigarette use?: No Frequency of Alcohol Use: None Hx Recreational Drug Use: No Drugs: None Hx Prescription Drug Abuse: No - Advance Directive Resuscitation Status: Full Code Family History Family History: CAD, Hypertension Parental Family History Reviewed: Yes Children Family History Reviewed: NA Sibling(s) Family History Reviewed.: NA Medication/Allergy Home Medications: Anastrozole [Arimidex 1 mg Tablet] 1 mg PO DAILY 07/11/19 Aspirin [Ecotrin 81 mg EC Tablet] 81 mg PO DAILY 07/11/19 Atorvastatin Calcium [Lipitor 20 mg Tablet] 20 mg PO QHS 07/11/19 Carvedilol [Coreg 12.5 mg Tablet] 12.5 mg PO Q12 07/11/19 Escitalopram Oxalate [Lexapro] 20 mg PO DAILY 07/11/19 Furosemide [Lasix 20 mg Tablet] 20 mg PO DAILY 07/11/19 Hydralazine HCl 100 mg PO Q8 07/11/19 Levothyroxine Sodium [Synthroid 0.15 mg Tablet] 0.15 mg PO Q6AM 07/11/19 Losartan Potassium [Cozaar] 100 mg PO DAILY 07/11/19 Metformin HCl [Glucophage 500 mg Tablet] 500 mg PO BID 07/11/19 Nifedipine [Nifedipine ER] 60 mg PO DAILY 07/11/19 Ropinirole HCl [Requip 2 mg Tablet] 2 mg PO QHS 07/11/19 Allergies/Adverse Reactions: diazepam [From Valium] Allergy (Verified 07/11/19 08:14) Review of Systems Constitutional: ABSENT: chills, fever(s) Nose, Mouth, and Throat: ABSENT: headache(s) Cardiovascular: ABSENT: chest pain, orthropnea Respiratory: ABSENT: cough, sputum Gastrointestinal: ABSENT: abdominal pain Genitourinary: PRESENT: nocturia Musculoskeletal: ABSENT: back pain Integumentary: ABSENT: diaphoresis Neurological: ABSENT: dizziness Psychiatric: ABSENT: anxiety Physical Exam Vital Signs: Temp Pulse Resp BP Pulse Ox 97.4 F 19 122/66 99 07/11/19 04:25 07/11/19 08:01 07/11/19 08:01 07/11/19 08:01 Intake & Output 07/10/19 07/11/19 07/12/19 06:59 06:59 06:59 Weight 65.1 kg General appearance: PRESENT: no acute distress - On BiPAP, cooperative Eye exam: PRESENT: PERRLA. ABSENT: scleral icterus Neck exam: PRESENT: JVD Respiratory exam: PRESENT: crackles - Bilaterally, symmetrical, unlabored. ABSENT: rhonchi, tachypnea, wheezes Cardiovascular exam: PRESENT: RRR, +S1, +S2, systolic murmur - 2-3/6 systolic murmur. ABSENT: tachycardia GI/Abdominal exam: PRESENT: normal bowel sounds, soft. ABSENT: distended, rebound, rigid, tenderness Extremities exam: ABSENT: pedal edema Musculoskeletal exam: PRESENT: full ROM Neurological exam: PRESENT: alert, awake, oriented to person, oriented to place, oriented to time. ABSENT: oriented to situation Psychiatric exam: ABSENT: agitated Focused psych exam: ABSENT: pressured speech Results Laboratory Results: 07/11/19 04:10 07/11/19 04:10 07/11/19 07/11/19 07/11/19 04:05 04:10 04:10 WBC 7.1 RBC 2.88 L Hgb 8.4 L Hct 25.1 L MCV 87 MCH 29.2 MCHC 33.4 RDW 13.8 Plt Count 501 H Seg Neutrophils % 83.3 H Carbonic Acid 1.37 H HCO3/H2CO3 Ratio 22:1 ABG pH 7.45 ABG pCO2 45.4 H ABG pO2 74.5 L ABG HCO3 30.8 H ABG O2 Saturation 95.4 ABG Base Excess 6.2 VBG pH VBG pCO2 VBG HCO3 VBG Base Excess FiO2 50% Sodium 137.7 Potassium 3.4 L Chloride 97 L Carbon Dioxide 30 Anion Gap 11 BUN 21 H Creatinine 0.97 Est GFR ( Amer) > 60 Glucose 167 H Lactic Acid Calcium 8.6 Total Bilirubin 0.5 AST 30 Alkaline Phosphatase 116 Total Protein 5.9 L Albumin 3.2 L Urine Color Urine Appearance Urine pH Ur Specific [place] Urine Protein Urine Glucose (UA) Urine Ketones Urine Blood Urine RBC (Auto) 07/11/19 07/11/19 07/11/19 04:10 04:25 08:07 WBC RBC Hgb Hct MCV MCH MCHC RDW Plt Count Seg Neutrophils % Carbonic Acid HCO3/H2CO3 Ratio ABG pH ABG pCO2 ABG pO2 ABG HCO3 ABG O2 Saturation ABG Base Excess VBG pH 7.41 VBG pCO2 54.2 VBG HCO3 33.7 H VBG Base Excess 8.0 FiO2 Sodium Potassium Chloride Carbon Dioxide Anion Gap BUN Creatinine Est GFR ( Amer) Glucose Lactic Acid 1.5 Calcium Total Bilirubin AST Alkaline Phosphatase Total Protein Albumin Urine Color YELLOW Urine Appearance SLIGHTLY-CLOUDY Urine pH 5.0 Ur Specific [place] 1.015 Urine Protein 100 H Urine Glucose (UA) NEGATIVE Urine Ketones NEGATIVE Urine Blood NEGATIVE Urine RBC (Auto) 1 07/11/19 04:10 Troponin I 0.029 NT-Pro-B Natriuret Pep 4480 H Impressions: Chest X-Ray 07/11/19 04:03 IMPRESSION: No acute findings visualized in the chest. Assessment and Plan - Diagnosis (1) Acute hypoxemic respiratory failure Is this a current diagnosis for this admission?: Yes Plan: Likely secondary to CHF exacerbation. Noted SPO2 in the 40s% when found by EMS. Currently improved to high 90s on BiPAP 12/6 FiO2 40%. Hopefully will improve with treatment of CHF (2) Acute on chronic diastolic CHF (congestive heart failure) Is this a current diagnosis for this admission?: Yes Plan: BNP significantly elevated from baseline in the 4000s. Reported that patient missed some doses of her Lasix. Increased pulmonary vascular congestion noted on my review of chest x-ray image Lasix 40 mg IV twice daily Repeat echocardiogram in light of significant heart murmur Continue Coreg, hydralazine and losartan Strict I's and O's, fluid restriction, weigh daily (3) Diabetes mellitus type 2 in nonobese Is this a current diagnosis for this admission?: Yes Plan: Continue metformin. Sliding scale insulin Accu-Cheks. (4) UTI (urinary tract infection) Qualifiers: Urinary tract infection type: site unspecified Hematuria presence: without hematuria Qualified Code(s): N39.0 - Urinary tract infection, site not specified Is this a current diagnosis for this admission?: Yes Plan: Check urine culture [place] (5) Dementia Qualifiers: Is this a current diagnosis for this admission?: Yes Plan: Supportive care (6) HTN (hypertension) Qualifiers: Hypertension type: essential hypertension Qualified Code(s): I10 - Essential (primary) hypertension Is this a current diagnosis for this admission?: Yes Plan: Continue losartan, hydralazine. We will reintroduce patient's nifedipine if BP starts to go high. (7) Heart murmur Is this a current diagnosis for this admission?: Yes Plan: Check echocardiogram (8) Normocytic anemia Is this a current diagnosis for this admission?: Yes Plan: Notably hemoglobin dropped from 10.9-8.4 in the past month Check iron studies, B12, folic acid and TSH Patient tells me the patient is scheduled to get a colonoscopy outpatient which has been set up by primary care provider. Monitor H&H - Time Time Spent with patient: 35 or more minutes
[2019-07-11 09:16] LABS: CREATINE KINASE MB 2.34 ng/mL (<4.55)
[2019-07-11 09:22] LABS: TROPONIN I 0.04 ng/mL
--- NOTE | 2019-07-11 09:50 | EKG REPORT ---
SEVERITY:- ABNORMAL ECG - SINUS RHYTHM NONSPECIFIC IVCD WITH LAD : Confirmed by: Roel Cordero 11-Jul-2019 09:50:16
[2019-07-11] MEDS ORDERED: FUROSEMIDE INJ/PF 40 MG/4 ML SDV IV SCH (10:00)
[2019-07-11] MEDS ORDERED: DOCUSATE SODIUM 100 MG CAPSULE PO SCH (10:00)
[2019-07-11] MEDS: METFORMIN HCL 500 MG TABLET PO SCH ×2 (11:21→18:21)
[2019-07-11] MEDS: ASPIRIN 81 MG TABLET, ENT COATED PO SCH (11:21)
[2019-07-11] MEDS: LOSARTAN POTASSIUM 50 MG TABLET PO SCH (11:22)
[2019-07-11] MEDS: CARVEDILOL 12.5 MG TABLET PO SCH ×2 (11:22→21:31)
[2019-07-11] MEDS: ESCITALOPRAM OXALATE 10 MG TABLET PO SCH (11:27)
[2019-07-11] MEDS: LEVOTHYROXINE SODIUM 0.15 MG TABLET PO SCH (11:36)
[2019-07-11] MEDS: ANASTROZOLE 1 MG TABLET PO SCH (11:36)
[2019-07-11] MEDS: NITROGLYCERIN 2% OINTMENT 1 GM PACKET TP SCH ×3 (12:24→23:50)
[2019-07-11] MEDS: HEPARIN SOD (PORCINE) 5,000 UNIT/ML 1 ML VIAL SUBCUT SCH ×2 (14:03→21:32)
[2019-07-11] MEDS: HYDRALAZINE HCL 50 MG TABLET PO SCH ×2 (14:03→21:31)
[2019-07-11] MEDS ORDERED: INFLUENZA QUAD (6MOS+) 2019-20 VAC 0.5 ML SYR IM ONE (18:30)
--- NOTE | 2019-07-11 18:47 | XCELERA REPORT ---
[address] [address] Transthoracic Echocardiogram Report Name: SANDY DANG Age: 89 yrs Gender: Female : 1930 Patient Status: Inpatient Patient Location: [place] [address]^A Study Date: 07/11/2019 10:13 AM Height: 63 in Weight: 143 lb BSA: 1.7 m2 Procedure: A complete two-dimensional transthoracic echocardiogram was performed (2D, M-mode, spectral and color flow Doppler). The study was technically adequate with some images being suboptimal in quality. Reason For Study: chf, heart murmur Ordering Physician: NEHAL MARINELLI Performed By: Deirdre Ng Interpretation Summary The left ventricular ejection fraction is within normal limits. There is mild concentric left ventricular hypertrophy. The left ventricle is grossly normal size. Doppler measurements suggest reversible restrictive left ventricular relaxation, which is associated with grade III/IV or moderate diastolic dysfunction Wall motion cannot be accurately commented on, but no definite regional wall motion abnormalities noted. The right ventricle is mildly dilated. The right ventricular systolic function is normal. The right atrium is mildly dilated. The left atrium is severely dilated. There is mild mitral stenosis There is a moderate amount of mitral regurgitation There is moderate aortic stenosis There is a peak gradient of 45-50, mean 25-30 mm of Hg. There is a moderate amount of aortic regurgitation There is a mild to moderate amount of tricuspid regurgitation There is moderate to severe pulmonary hypertension by echo Best estimated RVSP is approximately 60-70 mm/Hg. The aortic root is not well visualized. The inferior vena cava appeared dilated and decreased < 50% with respiration (RAP 15-20 mmHg) MMode/2D Measurements & Calculations RVDd: 4.4 cm LVIDd: 5.7 cm FS: 38.2 % Ao root diam: 2.9 cm IVSd: 0.99 cm LVIDs: 3.5 cm EDV(Teich): Ao root area: 157.5 ml LVPWd: 0.87 cm 6.6 cm2 ESV(Teich): 50.7 mlACS: 0.98 cm EF(Teich): 67.8 % LA dimension: 5.3 cm LVOT diam: 2.0 cm LVLd ap4: 7.2 cm SV(MOD-sp4): LVOT area: EDV(MOD-sp4): 46.0 ml 89.0 ml 3.1 cm2 LVLs ap4: 6.3 cm ESV(MOD-sp4): 43.0 ml EF(MOD-sp4): 51.7 % Doppler Measurements & Calculations MV E max mathew: MV P1/2t max mathew: Ao V2 max: AI max mathew: 148.6 cm/sec 148.1 cm/sec 333.4 cm/sec 422.3 cm/sec MV A max mathew: MV P1/2t: 56.3 msec Ao max PG: AI max P.3 cm/sec MVA(P1/2t): 3.9 cm2 44.5 mmHg 71.3 mmHg MV E/A: 1.1 MV dec slope: Ao V2 mean: AI dec slope: 231.0 cm/sec 371.2 cm/sec2 771.0 cm/sec2 Ao mean PG: AI P1/2t: MV dec time: 0.19 sec25.3 mmHg 333.2 msec Ao V2 VTI: 79.3 cm ROSALBA(I,D): 1.2 cm2 ROSALBA(V,D): 1.0 cm2 LV V1 max PG: SV(LVOT): 95.9 ml PA V2 max: PI end-d mathew: 5.1 mmHg 113.0 cm/sec 181.9 cm/sec LV V1 mean PG: PA max P.9 mmHg 5.1 mmHg LV V1 max: 112.5 cm/sec LV V1 mean: 79.0 cm/sec LV V1 VTI: 31.2 cm TR max mathew: AV P1/2t-pr_phl: MV P1/2t-pr_phl: 377.3 cm/sec 333.2 msec 56.3 msec TR max P.0 mmHg Left Ventricle The left ventricle is grossly normal size. There is mild concentric left ventricular hypertrophy. The left ventricular ejection fraction is within normal limits. Doppler measurements suggest reversible restrictive left ventricular relaxation, which is associated with grade III/IV or moderate diastolic dysfunction. Wall motion cannot be accurately commented on, but no definite regional wall motion abnormalities noted. Right Ventricle The right ventricle is mildly dilated. There is normal right ventricular wall thickness. The right ventricular systolic function is normal. Atria The right atrium is mildly dilated. The left atrium is severely dilated. Interarterial septum not well visualized and not well dopplered. Cannot comment on ASD/PFO presence. Mitral Valve The mitral valve leaflets are sclerotic and show some degree of functional abnormality. There is moderate mitral leaflet calcification. There is mild mitral stenosis. There is a moderate amount of mitral regurgitation. Aortic Valve The aortic valve is moderately calcified. There is moderate aortic stenosis. There is a peak gradient of 45-50, mean 25-30 mm of Hg. There is a moderate amount of aortic regurgitation. Tricuspid Valve The tricuspid valve is not well visualized, but is grossly normal. There is no tricuspid stenosis. There is a mild to moderate amount of tricuspid regurgitation. There is moderate to severe pulmonary hypertension by echo. Best estimated RVSP is approximately 60-70 mm/Hg. Pulmonic Valve The pulmonic valve is not well visualized. Great Vessels The aortic root is not well visualized. The inferior vena cava appeared dilated and decreased < 50% with respiration (RAP 15-20 mmHg). Effusions Minimal pericardial effusion. : NEHAL MARINELLI Shyamal
[2019-07-11] MEDS: ATORVASTATIN CALCIUM 20 MG TABLET PO SCH (21:31)
[2019-07-11] MEDS: INSULIN REG, HUMAN 100 UNIT/ML 3 ML VIAL (PYX) SUBCUT PRN (21:32)
[2019-07-11] MEDS: ROPINIROLE HCL 2 MG TABLET PO SCH (22:09)
[2019-07-12 05:07] LABS: ABSOLUTE BASOPHILS # (AUTO) 0.1 10^3/uL (0.0-0.2); ABSOLUTE EOSINOPHILS # (AUTO) 0.1 10^3/uL (0.0-0.6); ABSOLUTE LYMPHOCYTES (AUTO) 1.4 10^3/uL (0.5-4.7); ABSOLUTE MONOCYTES (AUTO) 0.8 10^3/uL (0.1-1.4); ABSOLUTE NEUT (AUTO) 3.8 10^3/uL (1.7-8.2); ABSOLUTE RETICS # 0.126 10^6/uL (0.028-0.122); BASOPHILS % (AUTO) 1.1 % (0-2); EOSINOPHILS % (AUTO) 1.1 % (0-6); LYMPHOCYTES % (AUTO) 23.4 % (13-45); MEAN CORPUSCULAR HEMOGLOBIN 28.5 pg (27.0-33.4); MEAN CORPUSCULAR HGB CONC 33.4 g/dL (32.0-36.0); MEAN CORPUSCULAR VOLUME 86 fl (80-97); MONOCYTES % (AUTO) 13.2 % (3-13); PLATELET COUNT 475 10^3/uL (150-450); RED BLOOD COUNT 2.81 10^6/uL (3.72-5.28); RED CELL DISTRIBUTION WIDTH 13.9 % (11.5-14.0); SEGMENTED NEUTROPHILS % (AUTO) 61.2 % (42-78); TOTAL CELLS COUNTED % (AUTO) 100 %; WHITE BLOOD COUNT 6.2 10^3/uL (4.0-10.5)
[2019-07-12 05:26] LABS: ANION GAP 6 (5-19); BLOOD UREA NITROGEN 18 mg/dL (7-20); CALCIUM 8.1 mg/dL (8.4-10.2); CARBON DIOXIDE 39 mmol/L (22-30); CHLORIDE 94 mmol/L (98-107); CHOLESTEROL 74.25 mg/dL (0-200); GLUCOSE 89 mg/dL (75-110); IRON(TIBC) 18.3 ug/dL (37-170); POTASSIUM 3.1 mmol/L (3.6-5.0); TRIGLYCERIDES 60 mg/dL (<150)
[2019-07-12] MEDS: NITROGLYCERIN 2% OINTMENT 1 GM PACKET TP SCH ×3 (05:27→17:24)
[2019-07-12] MEDS: HEPARIN SOD (PORCINE) 5,000 UNIT/ML 1 ML VIAL SUBCUT SCH ×2 (05:28→13:25)
[2019-07-12] MEDS: HYDRALAZINE HCL 50 MG TABLET PO SCH ×2 (05:28→13:29)
[2019-07-12] MEDS: LEVOTHYROXINE SODIUM 0.15 MG TABLET PO SCH (05:28)
[2019-07-12 05:41] LABS: DIRECT LDL < 30 mg/dL (<100)
[2019-07-12] MEDS ORDERED: PANTOPRAZOLE SODIUM 20 MG TABLET.DR PO SCH (06:00)
[2019-07-12] MEDS: CEFTRIAXONE 1 GM/D5W RTU 1 GM/50 ML RTUPB IV SCH (08:59)
[2019-07-12] MEDS ORDERED: MAGNESIUM SULFATE 4 GM/100 ML RTUPB IV ONE (09:00)
[2019-07-12] MEDS: LOSARTAN POTASSIUM 50 MG TABLET PO SCH (09:06)
[2019-07-12] MEDS: ASPIRIN 81 MG TABLET, ENT COATED PO SCH (09:06)
[2019-07-12] MEDS: CARVEDILOL 12.5 MG TABLET PO SCH (09:06)
[2019-07-12] MEDS: METFORMIN HCL 500 MG TABLET PO SCH ×2 (09:06→17:30)
[2019-07-12] MEDS: ESCITALOPRAM OXALATE 10 MG TABLET PO SCH (09:06)
[2019-07-12] MEDS: ANASTROZOLE 1 MG TABLET PO SCH (09:07)
[2019-07-12] MEDS: FUROSEMIDE INJ/PF 40 MG/4 ML SDV IV SCH (09:37)
[2019-07-12] MEDS: POTASSIUM CHLORIDE 10 MEQ TABLET.ER PO SCH ×2 (09:38→13:25)
--- NOTE | 2019-07-12 14:16 | PDOC PROGRESS REPORT ---
Subjective Progress Note for:: 07/12/19 Subjective:: Patient feels better today. Patient has been improved. Patient has confirms to me that patient again has follow-up planned with gate shear operator for endoscopy in the outpatient setting to evaluate for GI bleed. Reason For Visit: ACUTE ON CHRONIC DIASTOLIC CONGESTIVE HEART Physical Exam Vital Signs: Temp Pulse Resp BP Pulse Ox 97.4 F 64 20 106/38 L 92 07/12/19 11:38 07/12/19 11:38 07/12/19 11:38 07/12/19 11:38 07/12/19 11:38 Intake & Output 07/11/19 07/12/19 07/13/19 06:59 06:59 06:59 Intake Total 236 50 Balance 236 50 Weight 65.1 kg 63.8 kg General appearance: PRESENT: no acute distress, cooperative Neck exam: PRESENT: JVD Respiratory exam: PRESENT: crackles, symmetrical, unlabored. ABSENT: tachypnea, wheezes Cardiovascular exam: PRESENT: RRR, +S1, +S2. ABSENT: tachycardia GI/Abdominal exam: PRESENT: soft. ABSENT: rebound, rigid, tenderness Neurological exam: PRESENT: alert, awake Psychiatric exam: ABSENT: agitated, anxious Results Laboratory Results: 07/12/19 04:39 07/12/19 04:39 07/12/19 07/12/19 07/12/19 04:39 04:39 04:39 WBC 6.2 RBC 2.81 L Hgb 8.0 L Hct 24.0 L MCV 86 MCH 28.5 MCHC 33.4 RDW 13.9 Plt Count 475 H Seg Neutrophils % 61.2 Retic Count (auto) 4.50 H Sodium 138.8 Potassium 3.1 L Chloride 94 L Carbon Dioxide 39 H Anion Gap 6 BUN 18 Creatinine 0.79 Est GFR ( Amer) > 60 Glucose 89 Calcium 8.1 L Magnesium 1.2 L* Iron 18.3 L TIBC 328 % Saturation 6 Ferritin 11.40 Triglycerides 60 Cholesterol 74.25 LDL Cholesterol Direct < 30 VLDL Cholesterol 12.0 HDL Cholesterol 37 L Vitamin B12 > 1000.0 H Folate 18.00 TSH 4.66 07/11/19 07/11/19 07/11/19 04:10 08:07 08:07 Creatine Kinase 97 CK-MB (CK-2) 2.34 Troponin I 0.029 0.040 NT-Pro-B Natriuret Pep 4480 H 07/11/19 07/12/19 20:01 04:39 Creatine Kinase CK-MB (CK-2) Troponin I 0.056 0.060 NT-Pro-B Natriuret Pep Impressions: Chest X-Ray 07/11/19 04:03 IMPRESSION: No acute findings visualized in the chest. Assessment and Plan - Diagnosis (1) Acute hypoxemic respiratory failure Is this a current diagnosis for this admission?: Yes Plan: Likely secondary to CHF exacerbation. Noted SPO2 in the 40s% when found by EMS. Currently improved on successfully weaned off BiPAP to 3 to 4 L on nasal cannula. Anticipates hypoxia should continue to improve with treatment of CHF. (2) Acute on chronic diastolic CHF (congestive heart failure) Is this a current diagnosis for this admission?: Yes Plan: BNP significantly elevated from baseline in the 4000s. Reported that patient missed some doses of her Lasix. Increased pulmonary vascular congestion noted on my review of chest x-ray image Lasix 40 mg IV daily Echocardiogram showing normal ejection fraction with moderate aortic stenosis ROSALBA 1.2 cm, grade 3 diastolic dysfunction with restrictive pattern and moderate to severe pulmonary hypertension with RVSP 60 to 70 mmHg CHF likely worsened by aortic stenosis Continue Coreg, hydralazine and losartan Strict I's and O's, fluid restriction, weigh daily Cardiology consulted (3) Moderate aortic stenosis Is this a current diagnosis for this admission?: Yes Plan: Moderate aortic stenosis noted on echo. Likely also contributing to the patient's grade 3 diastolic heart failure Cardiology consulted for evaluation of this. (4) UTI (urinary tract infection) Qualifiers: Urinary tract infection type: site unspecified Hematuria presence: without hematuria Qualified Code(s): N39.0 - Urinary tract infection, site not specified Is this a current diagnosis for this admission?: Yes Plan: Urine culture growing gram-negative sherie Catrachitoephin day 2 (5) Iron deficiency anemia Qualifiers: Iron deficiency anemia type: chronic blood loss Qualified Code(s): D50.0 - Iron deficiency anemia secondary to blood loss (chronic) Is this a current diagnosis for this admission?: Yes Plan: Notably hemoglobin dropped from 10.9-8.4 in the past month Iron deficiency confirmed on iron studies Patient tells me that patient has had episodes of melena and is scheduled to get an endoscopy outpatient which has been set up by primary care provider and will be done when patient is discharged. I have also cautioned that patient will need to be risk stratified by patient's exhibit builder Dr. Ferrer before endoscopy can be done especially because patient has moderate aortic stenosis and moderate to severe pulmonary hypertension noted on echo at this point and would put her at the increased risk of cardiac event. For this reason, I would hold off on pursuing any endoscopy at this time while inpatient onto patient's current heart failure exacerbation is treated. Monitor H&H and type and screen Pantoprazole twice daily (6) Diabetes mellitus type 2 in nonobese Is this a current diagnosis for this admission?: Yes Plan: Continue metformin. Sliding scale insulin Accu-Cheks. (7) Dementia Qualifiers: Is this a current diagnosis for this admission?: Yes (8) HTN (hypertension) Qualifiers: Hypertension type: essential hypertension Qualified Code(s): I10 - Essential (primary) hypertension Is this a current diagnosis for this admission?: Yes Plan: Continue losartan, hydralazine. - Time Time Spent with patient: 15-24 minutes
--- NOTE | 2019-07-12 14:30 | EKG REPORT ---
SEVERITY:- ABNORMAL ECG - SINUS RHYTHM INCOMPLETE RIGHT BUNDLE BRANCH BLOCK PROLONGED QT INTERVAL : Confirmed by: Roel Cordero 12-Jul-2019 14:29:44
--- NOTE | 2019-07-12 14:31 | EKG REPORT ---
SEVERITY:- ABNORMAL ECG - SINUS TACHYCARDIA MULTIFORM VENTRICULAR AND ATRIAL PREMATURE COMPLEXES INCOMPLETE RIGHT BUNDLE BRANCH BLOCK BORDERLINE R WAVE PROGRESSION, ANTERIOR LEADS : Confirmed by: Roel Cordero 12-Jul-2019 14:30:18
[2019-07-12] MEDS: IRON SUCROSE COMPLEX INJ/PF 100 MG/5 ML SDV IV SCH (17:25)
[2019-07-12] MEDS: PANTOPRAZOLE SODIUM 40 MG TABLET.DR PO SCH (17:30)
[2019-07-12] MEDS: IRON SUCROSE COMPLEX 300 MG in NORMAL SALINE 250 ML IV SCH (17:30)
--- NOTE | 2019-07-12 18:27 | PDOC CONSULTATION ---
Consultation Consult Date: 07/12/19 Attending physician:: JACOBO CONCEPCION Provider Consulted: CHALO TEJEDA Consult reason:: Valvular heart disease History of Present Illness Admission Date/PCP: 07/11/19 07:32 CORAZON CARRION PA-C Patient complains of: Shortness of breath History of Present Illness: SANDY DANG is a 89 year old female with a history of diastolic heart failure, hypertension, COPD, diabetes, dementia and difficulty with hearing, who was brought into the hospital this morning after her called EMS after noting her to be difficult to arouse. On arrival of EMS, patient was noted to be significantly hypoxic in the 40s on room air and hypotensive in the 80s systolic. She was subsequently placed on a nonrebreather with reported sats improving to the high 80s and then brought into the hospital. In the ER, chel ent was de-escalated to a Ventimask at 50% with SPO2 improving to low 90%. Later transitioned to BiPAP with suspicion of fluid overload. Subsequently referred to hospitalist service for admission for acute on chronic congestive heart failure. Apparently, patient's reported that patient had missed some doses of her Lasix. Currently patient is more awake but is not at bedside. Patient denies any shortness of breath, chest pain orthopnea, lower extremity swelling but endorses some occasions of PND. Patient is not an adequate historian. This history obtained by the hospitalist as noted above. Today, when seen in the morning patient was noted to be confused and could not add much to the history. However on direct questioning she denied any ongoing chest pain. She was noted to be comfortable laying in bed flat and eating lunch. Past Medical History Cardiac Medical History: Reports: Congestive Heart Failure, Hyperlipidema, Hyper tension Denies: Coronary Artery Disease, Myocardial Infarction Pulmonary Medical History: Reports: Chronic Obstructive Pulmonary Disease (COPD), Pneumonia Denies: Asthma, Bronchitis, Tuberculosis Neurological Medical History: Denies: Seizures Endocrine Medical History: Reports: Diabetes Mellitus Type 1, Diabetes Mellitus Type 2, Hypothyroidism Malignancy Medical History: Reports: Breast Cancer Musculoskeltal Medical History: Reports: Arthritis - Neck Psychiatric Medical History: Reports: Dementia Denies: Depression Hematology: Reports: Anemia Past Surgical History Past Surgical History: Reports: Appendectomy, Cholecystectomy, Mastectomy - right, Other - Unknown Denies: Hysterectomy Social History Smoking Status: Never Smoker Electronic Cigarette use?: No Frequency of Alcohol Use: None Hx Recreational Drug Use: No Drugs: None Hx Prescription Drug Abuse: No - Advance Directive Resuscitation Status: Full Code Family History Family History: CAD, Hypertension Parental Family History Reviewed: No Children Family History Reviewed: No Sibling(s) Family History Reviewed.: No Medication/Allergy Home Medications: Anastrozole [Arimidex 1 mg Tablet] 1 mg PO DAILY 07/11/19 Aspirin [Ecotrin 81 mg EC Tablet] 81 mg PO DAILY 07/11/19 Atorvastatin Calcium [Lipitor 20 mg Tablet] 20 mg PO QHS 07/11/19 Carvedilol [Coreg 12.5 mg Tablet] 12.5 mg PO Q12 07/11/19 Escitalopram Oxalate [Lexapro] 20 mg PO DAILY 07/11/19 Furosemide [Lasix 20 mg Tablet] 20 mg PO DAILY 07/11/19 Hydralazine HCl 100 mg PO Q8 07/11/19 Levothyroxine Sodium [Synthroid 0.15 mg Tablet] 0.15 mg PO Q6AM 07/11/19 Losartan Potassium [Cozaar] 100 mg PO DAILY 07/11/19 Metformin HCl [Glucophage 500 mg Tablet] 500 mg PO BID 07/11/19 Nifedipine [Nifedipine ER] 60 mg PO DAILY 07/11/19 Ropinirole HCl [Requip 2 mg Tablet] 2 mg PO QHS 07/11/19 Allergies/Adverse Reactions: diazepam [From Valium] Allergy (Verified 07/11/19 08:14) Review of Systems Review of Systems: Most of the system review obtained by direct questioning. System review is generally negative. This was obtained by direct questioning. Constitutional: ABSENT: chills, fever(s), headache(s), weight gain, weight loss Eyes: PRESENT: visual disturbances Ears: PRESENT: hearing changes Cardiovascular: PRESENT: dyspnea on exertion. ABSENT: chest pain, edema, orthropnea, palpitations Respiratory: PRESENT: dyspnea. ABSENT: cough, hemoptysis Gastrointestinal: ABSENT: abdominal pain, constipation, diarrhea, hematemesis, hematochezia, nausea, vomiting Genitourinary: ABSENT: dysuria, hematuria Musculoskeletal: ABSENT: joint swelling Integumentary: ABSENT: rash, wounds Neurological: ABSENT: abnormal gait - Gait was not evaluated. Memory not evalu ated., abnormal speech, confusion, dizziness, focal weakness, syncope Psychiatric: ABSENT: anxiety, depression, homidical ideation, suicidal ideation Endocrine: ABSENT: cold intolerance, heat intolerance, polydipsia, polyuria Hematologic/Lymphatic: ABSENT: easy bleeding, easy bruising Physical Exam Vital Signs: Temp Pulse Resp BP Pulse Ox 99.2 F 58 L 16 122/48 L 99 07/12/19 16:10 07/12/19 16:10 07/12/19 16:10 07/12/19 16:10 07/12/19 16:10 Intake & Output 07/11/19 07/12/19 07/13/19 06:59 06:59 06:59 Intake Total 236 150 Balance 236 150 Weight 65.1 kg 63.8 kg Exam: GENERAL: well-nourished and in no acute distress. Patient is alert but oriented to person. Did not seem oriented to time. HEAD: Atraumatic, normocephalic. EYES: Pupils equal round and reactive to light, extraocular movements intact, sclera anicteric, conjunctiva are normal. ENT: TMs normal, nares patent, oropharynx clear without exudates. Moist mucous membranes. No oral ulcerations or bleeding gums noted NECK: supple without lymphadenopathy or JVD. Trachea is central. No cervical or axillary lymphadenopathy noted. Carotids are 2+ LUNGS: Breath sounds bibasilar fine crackles at bases. No significant dullness noted. CHEST: Palpation of chest wall shows no significant chest wall tenderness. 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 ABDOMEN: Soft, no significant tenderness appreciated, normoactive bowel sounds. No guarding, no rebound. No rigidity noted . No masses appreciated. EXTREMITIES: Pedal pulses are 1-2+, no calf tenderness noted, Trace + pedal edema noted. No clubbing or cyanosis. NEUROLOGICAL: Patient is alert but is not able to participate in neurological exam because of patient's current mental status PSYCH: Patient cannot participate in a neurologic and psych exam because of the patient's current mental status SKIN: No significant ecchymosis, rash, ulcerations or signs of pruritus noted. MUSCULOSKELETAL EXAM: No significant joint swelling noted. Results Laboratory Results: 07/12/19 04:39 07/12/19 04:39 07/12/19 07/12/19 07/12/19 04:39 04:39 04:39 WBC 6.2 RBC 2.81 L Hgb 8.0 L Hct 24.0 L MCV 86 MCH 28.5 MCHC 33.4 RDW 13.9 Plt Count 475 H Seg Neutrophils % 61.2 Retic Count (auto) 4.50 H Sodium 138.8 Potassium 3.1 L Chloride 94 L Carbon Dioxide 39 H Anion Gap 6 BUN 18 Creatinine 0.79 Est GFR ( Amer) > 60 Glucose 89 Calcium 8.1 L Magnesium 1.2 L* Iron 18.3 L TIBC 328 % Saturation 6 Ferritin 11.40 Triglycerides 60 Cholesterol 74.25 LDL Cholesterol Direct < 30 VLDL Cholesterol 12.0 HDL Cholesterol 37 L Vitamin B12 > 1000.0 H Folate 18.00 TSH 4.66 07/11/19 07/11/19 07/11/19 04:10 08:07 08:07 Creatine Kinase 97 CK-MB (CK-2) 2.34 Troponin I 0.029 0.040 NT-Pro-B Natriuret Pep 4480 H 07/11/19 07/12/19 20:01 04:39 Creatine Kinase CK-MB (CK-2) Troponin I 0.056 0.060 NT-Pro-B Natriuret Pep EKG Comments: Sinus rhythm, no acute ST-T wave changes are noted. Impressions: Chest X-Ray 07/11/19 04:03 IMPRESSION: No acute findings visualized in the chest. Assessment & Plan - Diagnosis (1) Dementia Qualifiers: Dementia type: unspecified type Dementia behavioral disturbance: without behavioral disturbance Qualified Code(s): F03.90 - Unspecified dementia without behavioral disturbance (2) Acute hypoxemic respiratory failure Is this a current diagnosis for this admission?: Yes (3) Diabetes mellitus type 2 in nonobese Is this a current diagnosis for this admission?: Yes (4) Moderate aortic stenosis Is this a current diagnosis for this admission?: Yes (5) Acute on chronic diastolic CHF (congestive heart failure) Is this a current diagnosis for this admission?: Yes (6) COPD (chronic obstructive pulmonary disease) Qualifiers: Chronic bronchitis type: unspecified Is this a current diagnosis for this admission?: Yes - Notes Notes: Patient noted to have moderate aortic stenosis, moderate mitral regurgitation. They are not bad enough to need any intervention. Also there is significant doubt if patient will be a candidate for such a intervention in view of other comorbid diagnosis. No endocarditis prophylaxis indicated in the absence of mechanical valve. Patient encouraged to report any worsening of symptoms. Acute hypoxemic respiratory failure: Possibly related to combination of CHF and COPD. This seems to be improving. Continue oxygen supplementation to maintain O2 saturation above 90%. Congestive heart failure: [place] to be predominantly related to diastolic dysfunction with some contribution from valvular heart disease. Continue diuretic therapy. Monitor electrolytes. COPD: Currently stable. Continue current therapeutic regimen. Diabetes: Currently stable. Being excellently managed by hospitalist. Dementia: Patient does have some dementia. We will continue to monitor. - Time Time Spent: 30 to 50 Minutes Medications reviewed and adjusted accordingly: Yes
[2019-07-13] MEDS: POTASSIUM CHLORIDE 10 MEQ TABLET.ER PO SCH ×5 (00:04→22:19)
[2019-07-13] MEDS: ATORVASTATIN CALCIUM 20 MG TABLET PO SCH ×2 (00:04→22:22)
[2019-07-13] MEDS: HEPARIN SOD (PORCINE) 5,000 UNIT/ML 1 ML VIAL SUBCUT SCH ×4 (00:04→22:21)
[2019-07-13] MEDS: ROPINIROLE HCL 2 MG TABLET PO SCH ×2 (00:05→22:23)
[2019-07-13] MEDS: HYDRALAZINE HCL 50 MG TABLET PO SCH ×4 (00:05→22:22)
[2019-07-13] MEDS: NITROGLYCERIN 2% OINTMENT 1 GM PACKET TP SCH ×4 (00:48→17:54)
[2019-07-13] MEDS: CARVEDILOL 12.5 MG TABLET PO SCH ×3 (00:48→22:19)
[2019-07-13 05:33] LABS: ANION GAP 5 (5-19); BLOOD UREA NITROGEN 14 mg/dL (7-20); CALCIUM 7.6 mg/dL (8.4-10.2); CARBON DIOXIDE 37 mmol/L (22-30); CHLORIDE 97 mmol/L (98-107); GLUCOSE 119 mg/dL (75-110); POTASSIUM 3.4 mmol/L (3.6-5.0)
[2019-07-13] MEDS: PANTOPRAZOLE SODIUM 40 MG TABLET.DR PO SCH ×2 (06:13→16:06)
[2019-07-13] MEDS: LEVOTHYROXINE SODIUM 0.15 MG TABLET PO SCH (06:13)
[2019-07-13] MEDS: CEFTRIAXONE 1 GM/D5W RTU 1 GM/50 ML RTUPB IV SCH (08:51)
[2019-07-13] MEDS ORDERED: POTASSIUM CHLORIDE 20 MEQ PACKET PO SCH (10:00)
[2019-07-13] MEDS: METFORMIN HCL 500 MG TABLET PO SCH ×2 (10:23→17:54)
[2019-07-13] MEDS: ANASTROZOLE 1 MG TABLET PO SCH (10:24)
[2019-07-13] MEDS: ESCITALOPRAM OXALATE 10 MG TABLET PO SCH (10:24)
[2019-07-13] MEDS: LOSARTAN POTASSIUM 50 MG TABLET PO SCH (10:24)
[2019-07-13] MEDS: FUROSEMIDE INJ/PF 40 MG/4 ML SDV IV SCH (10:25)
[2019-07-13] MEDS: FERROUS SULFATE 325 MG TABLET PO SCH (10:25)
[2019-07-13] MEDS: ASPIRIN 81 MG TABLET, ENT COATED PO SCH (10:25)
--- NOTE | 2019-07-13 10:33 | PDOC PROGRESS REPORT ---
Subjective Progress Note for:: 07/13/19 Subjective:: Patient has been in the room. Patient was noted to be stable laying in bed eating breakfast. Patient seems to be doing better with gradual improvement. Pt is denying any chest arm or neck discomfort. Patient denying any PND, orthopnea. Patient denied any sustained palpitations, dizziness, syncope, near syncope. Patient denying any fever chills. Patient denying any other significant discomfort. Patient is maintaining sinus rhythm. Review of systems: Rest review of systems negative. Medications: Medications have been reviewed. Reason For Visit: ACUTE ON CHRONIC DIASTOLIC CONGESTIVE HEART Physical Exam Vital Signs: Temp Pulse Resp BP Pulse Ox 99.0 F 62 18 128/46 H 100 07/13/19 07:48 07/13/19 07:48 07/13/19 07:48 07/13/19 07:48 07/13/19 07:48 Intake & Output 07/12/19 07/13/19 07/14/19 06:59 06:59 06:59 Intake Total 236 180 315 Balance 236 180 315 Weight 63.8 kg 61.8 kg Exam: GENERAL: well-nourished and in no acute distress. Alert and orientation not checked. HEAD: Atraumatic, normocephalic. EYES: MAIK, sclera anicteric, conjunctiva are normal. ENT: Moist mucous membranes. No oral ulcerations or bleeding gums noted. No obvious ear, nose or throat abnormalities noted. NECK: supple without lymphadenopathy. Trachea is central. No cervical or axillary lymphadenopathy noted. Carotids are 2+, JVD WNL LUNGS: Breath sounds clear bilaterally. No wheezes rales or rhonchi noted. No significant dullness noted on percussion. CHEST: Palpation of the chest wall shows no significant chest wall tenderness. 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 ABDOMEN: Soft, no significant tenderness appreciated, normoactive bowel sounds. No guarding, no rebound. No rigidity noted . No masses appreciated. EXTREMITIES: Pedal pulses are 1-2+, no calf tenderness noted. No clubbing or cyanosis. negative pedal edema noted NEUROLOGICAL: Focused neurological exam showed no significant neurologic deficit. Normal speech, no focal weakness appreciated. PSYCH: Normal mood, normal affect. Judgment and insight not checked SKIN: No significant ecchymosis, skin is noted to be warm. MUSCULOSKELETAL EXAM: No significant acute joint swelling noted. Results Laboratory Results: 07/12/19 04:39 07/13/19 04:24 07/13/19 07/13/19 04:24 04:24 Sodium 139.3 Potassium 3.4 L Chloride 97 L Carbon Dioxide 37 H Anion Gap 5 BUN 14 Creatinine 0.62 Est GFR ( Amer) > 60 Glucose 119 H Calcium 7.6 L Magnesium 2.1 Blood Type O POSITIVE Antibody Screen NEGATIVE 07/11/19 04:25 Catheterized Urine Urine Culture - Final Escherichia Coli 07/11/19 07/11/19 07/11/19 04:10 08:07 08:07 Creatine Kinase 97 CK-MB (CK-2) 2.34 Troponin I 0.029 0.040 NT-Pro-B Natriuret Pep 4480 H 07/11/19 07/12/19 20:01 04:39 Creatine Kinase CK-MB (CK-2) Troponin I 0.056 0.060 NT-Pro-B Natriuret Pep EKG Comments: Showed sinus rhythm without any sustained tachycardia or bradycardia. Impressions: Chest X-Ray 07/11/19 04:03 IMPRESSION: No acute findings visualized in the chest. Assessment & Plan - Diagnosis (1) Dementia Qualifiers: Dementia type: unspecified type Dementia behavioral disturbance: without behavioral disturbance Qualified Code(s): F03.90 - Unspecified dementia without behavioral disturbance (2) Acute hypoxemic respiratory failure Is this a current diagnosis for this admission?: Yes (3) Diabetes mellitus type 2 in nonobese Is this a current diagnosis for this admission?: Yes (4) Moderate aortic stenosis Is this a current diagnosis for this admission?: Yes (5) Acute on chronic diastolic CHF (congestive heart failure) Is this a current diagnosis for this admission?: Yes (6) COPD (chronic obstructive pulmonary disease) Qualifiers: Chronic bronchitis type: unspecified Is this a current diagnosis for this admission?: Yes - Notes Notes: 2D echo results were reviewed. Do not feel patient needs any intervention. As regards congestive heart failure, patient seems well compensated. Continue current therapeutic regimen. Patient would benefit from salt and fluid restriction. - Time Time with patient: 15-25 minutes Medications reviewed and adjusted accordingly: Yes
[2019-07-13] MEDS: IRON SUCROSE COMPLEX INJ/PF 100 MG/5 ML SDV IV SCH (10:34)
--- NOTE | 2019-07-13 11:08 | PDOC PROGRESS REPORT ---
Subjective Progress Note for:: 07/13/19 Subjective:: Patient was eating at time of my encounter. Patient denies any shortness of breath at the time. Primary nurse verbalized patient occasionally getting more drowsy this morning. Noted to be sometimes drifting off. Otherwise patient denies any chest pain fever chills or nausea. Patient states she does not use oxygen at home. Reason For Visit: ACUTE ON CHRONIC DIASTOLIC CONGESTIVE HEART Physical Exam Vital Signs: Temp Pulse Resp BP Pulse Ox 99.0 F 62 18 128/46 H 100 07/13/19 07:48 07/13/19 07:48 07/13/19 07:48 07/13/19 07:48 07/13/19 07:48 Intake & Output 07/12/19 07/13/19 07/14/19 06:59 06:59 06:59 Intake Total 236 180 315 Balance 236 180 315 Weight 63.8 kg 61.8 kg General appearance: PRESENT: no acute distress, cooperative Neck exam: ABSENT: JVD Respiratory exam: PRESENT: crackles, symmetrical, unlabored. ABSENT: tachypnea, wheezes Cardiovascular exam: PRESENT: diastolic murmur, RRR, +S1, +S2, systolic murmur. ABSENT: tachycardia GI/Abdominal exam: PRESENT: normal bowel sounds, soft. ABSENT: rebound, rigid, tenderness Neurological exam: PRESENT: alert, awake Psychiatric exam: ABSENT: agitated, anxious Results Laboratory Results: 07/12/19 04:39 07/13/19 04:24 07/13/19 07/13/19 04:24 04:24 Sodium 139.3 Potassium 3.4 L Chloride 97 L Carbon Dioxide 37 H Anion Gap 5 BUN 14 Creatinine 0.62 Est GFR ( Amer) > 60 Glucose 119 H Calcium 7.6 L Magnesium 2.1 Blood Type O POSITIVE Antibody Screen NEGATIVE 07/11/19 04:25 Catheterized Urine Urine Culture - Final Escherichia Coli 07/11/19 07/11/19 07/11/19 04:10 08:07 08:07 Creatine Kinase 97 CK-MB (CK-2) 2.34 Troponin I 0.029 0.040 NT-Pro-B Natriuret Pep 4480 H 07/11/19 07/12/19 20:01 04:39 Creatine Kinase CK-MB (CK-2) Troponin I 0.056 0.060 NT-Pro-B Natriuret Pep Impressions: Chest X-Ray 07/11/19 04:03 IMPRESSION: No acute findings visualized in the chest. Assessment and Plan - Diagnosis (1) Acute hypoxemic respiratory failure Is this a current diagnosis for this admission?: Yes Plan: Likely secondary to CHF exacerbation. Noted SPO2 in the 40s% when found by EMS. Patient tolerating being off BiPAP currently and was off it for most of yesterday. We will check ABG today especially giving her being occasionally drowsy We will also try to wean her off oxygen if SPO2 tolerates. Continue with diuresis. (2) Acute on chronic diastolic CHF (congestive heart failure) Is this a current diagnosis for this admission?: Yes Plan: Lasix 40 mg IV daily-we will transition to p.o. Lasix tomorrow Echocardiogram showing normal ejection fraction with moderate aortic stenosis ROSALBA 1.2 cm, grade 3 diastolic dysfunction with restrictive pattern and moderate to severe pulmonary hypertension with RVSP 60 to 70 mmHg CHF likely worsened by aortic stenosis Continue Coreg, hydralazine and losartan Strict I's and O's, fluid restriction, weigh daily. Replete electrolytes. Cardiology following (3) Valvular heart disease Is this a current diagnosis for this admission?: Yes Plan: Characterized by moderate aortic stenosis with ROSALBA of 1.2 cm and moderate mitral regurgitation both of which are significantly contributing to patient's diastolic heart failure. Seen by cardiology and is not a candidate for any intervention at this time. We will continue with diuresis and afterload reduction. Patient will follow-up with Dr. Ferrer is her primary car detailer. (4) UTI (urinary tract infection) Qualifiers: Urinary tract infection type: site unspecified Hematuria presence: without hematuria Qualified Code(s): N39.0 - Urinary tract infection, site not specified Is this a current diagnosis for this admission?: Yes Plan: Urine culture growing [facility]/ (5) Iron deficiency anemia Qualifiers: Iron deficiency anemia type: chronic blood loss Qualified Code(s): D50.0 - Iron deficiency anemia secondary to blood loss (chronic) Is this a current diagnosis for this admission?: Yes Plan: Notably hemoglobin dropped from 10.9-8.4 in the past month Iron deficiency confirmed on iron studies Patient tells me that patient has had episodes of melena and is scheduled to get an endoscopy outpatient which has been set up by primary care provider and will be done when patient is discharged. I have also cautioned that patient will need to be risk stratified by patient's car detailer Dr. Ferrer before endoscopy can be done especially because patient has moderate aortic stenosis and moderate to severe pulmonary hypertension noted on echo at this point and would put her at the increased risk of cardiac event. For this reason, I would hold off on pursuing any endoscopy at this time while inpatient onto patient's current heart failure exacerbation is treated. Monitor H&H and typed and screened Pantoprazole twice daily (6) Diabetes mellitus type 2 in nonobese Is this a current diagnosis for this admission?: Yes Plan: Continue metformin. Sliding scale insulin Accu-Cheks. (7) Dementia Qualifiers: Is this a current diagnosis for this admission?: Yes (8) HTN (hypertension) Qualifiers: Hypertension type: essential hypertension Qualified Code(s): I10 - Essential (primary) hypertension Is this a current diagnosis for this admission?: Yes Plan: Continue losartan, hydralazine reduced to 50 mg every 8 hours to avoid hypotension. - Time Time Spent with patient: 15-24 minutes
[2019-07-13 12:32] LABS: ARTERIAL BLOOD BASE EXCESS 11.4 mmol/L; ARTERIAL BLOOD FIO2 3.5L; ARTERIAL BLOOD HCO3 36.2 mmol/L (20-24); ARTERIAL BLOOD O2 SATURATION 93.9 % (94-98); ARTERIAL BLOOD PCO2 49.7 mmHg (35-45); ARTERIAL BLOOD PH 7.48 (7.35-7.45); ARTERIAL BLOOD PO2 65.7 mmHg (80-100); ARTERIAL BLOOD TOTAL CO2 37.7 mmol/L (21-25)
[2019-07-13] MEDS: ACETAZOLAMIDE 250 MG TABLET PO SCH (16:08)
[2019-07-13] MEDS: IRON SUCROSE COMPLEX 300 MG in NORMAL SALINE 250 ML IV SCH (17:54)
[2019-07-13] MEDS: INSULIN REG, HUMAN 100 UNIT/ML 3 ML VIAL (PYX) SUBCUT PRN (23:11)
[2019-07-14] MEDS: NITROGLYCERIN 2% OINTMENT 1 GM PACKET TP SCH ×5 (00:58→23:32)
[2019-07-14 05:11] LABS: HEMATOCRIT 24.9 % (36.0-47.0); HEMOGLOBIN 8.2 g/dL (12.0-15.5); MEAN CORPUSCULAR HEMOGLOBIN 28.6 pg (27.0-33.4); MEAN CORPUSCULAR HGB CONC 32.9 g/dL (32.0-36.0); MEAN CORPUSCULAR VOLUME 87 fl (80-97); PLATELET COUNT 435 10^3/uL (150-450); RED BLOOD COUNT 2.87 10^6/uL (3.72-5.28); RED CELL DISTRIBUTION WIDTH 14.1 % (11.5-14.0); WHITE BLOOD COUNT 9.4 10^3/uL (4.0-10.5)
[2019-07-14 05:12] LABS: VENOUS BLOOD BASE EXCESS 6.8 mmol/L; VENOUS BLOOD HCO3 32.9 mmol/L (20-32); VENOUS BLOOD PCO2 55.9 mmHg (35-63); VENOUS BLOOD PH 7.39 (7.30-7.42)
[2019-07-14 05:29] LABS: BLOOD UREA NITROGEN 13 mg/dL (7-20); CALCIUM 8.2 mg/dL (8.4-10.2); CARBON DIOXIDE 30 mmol/L (22-30); CHLORIDE 106 mmol/L (98-107); GLUCOSE 100 mg/dL (75-110); POTASSIUM 5.1 mmol/L (3.6-5.0)
[2019-07-14] MEDS: HYDRALAZINE HCL 50 MG TABLET PO SCH (05:31)
[2019-07-14 05:34] LABS: ANION GAP 5 (5-19)
[2019-07-14] MEDS: LEVOTHYROXINE SODIUM 0.15 MG TABLET PO SCH (05:35)
[2019-07-14] MEDS: HEPARIN SOD (PORCINE) 5,000 UNIT/ML 1 ML VIAL SUBCUT SCH ×3 (05:35→21:34)
[2019-07-14] MEDS: PANTOPRAZOLE SODIUM 40 MG TABLET.DR PO SCH ×2 (05:35→17:47)
[2019-07-14] MEDS: CEFTRIAXONE 1 GM/D5W RTU 1 GM/50 ML RTUPB IV SCH (08:42)
[2019-07-14] MEDS ORDERED: POTASSIUM CHLORIDE 10 MEQ TABLET.ER PO SCH (10:00)
[2019-07-14] MEDS: ACETAZOLAMIDE 250 MG TABLET PO SCH (10:35)
[2019-07-14] MEDS: METFORMIN HCL 500 MG TABLET PO SCH ×2 (10:35→17:47)
[2019-07-14] MEDS: ASPIRIN 81 MG TABLET, ENT COATED PO SCH (10:35)
[2019-07-14] MEDS: ANASTROZOLE 1 MG TABLET PO SCH (10:35)
[2019-07-14] MEDS: FERROUS SULFATE 325 MG TABLET PO SCH (10:37)
[2019-07-14] MEDS: ESCITALOPRAM OXALATE 10 MG TABLET PO SCH (10:37)
[2019-07-14] MEDS: CARVEDILOL 12.5 MG TABLET PO SCH ×2 (10:47→21:33)
[2019-07-14] MEDS: LOSARTAN POTASSIUM 50 MG TABLET PO SCH (10:47)
[2019-07-14] MEDS: FUROSEMIDE INJ/PF 40 MG/4 ML SDV IV SCH (10:48)
--- NOTE | 2019-07-14 11:02 | PDOC PROGRESS REPORT ---
Subjective Progress Note for:: 07/14/19 Subjective:: Patient feels better and less drowsy today. Denies any shortness of breath or chest pains. I was notified by staff that yesterday, patient's was called to bring in patient tablespoons of salt for her to apply to her Egyptian toast. Patient was found applying salt to her Egyptian toast and patient is clearly not complying with salt restricted diet. Patient's stated that that is how she has always liked it and that he wants her to keep getting salty food. Patient's made patient DNR DNI status yesterday. Reason For Visit: ACUTE ON CHRONIC DIASTOLIC CONGESTIVE HEART Physical Exam Vital Signs: Temp Pulse Resp BP Pulse Ox 98.3 F 54 L 18 104/44 L 94 07/14/19 07:50 07/14/19 07:50 07/14/19 07:50 07/14/19 07:50 07/14/19 07:50 Intake & Output 07/13/19 07/14/19 07/15/19 06:59 06:59 06:59 Intake Total 180 1180 Balance 180 1180 Weight 61.8 kg 63.3 kg General appearance: PRESENT: no acute distress, cooperative Neck exam: ABSENT: JVD Respiratory exam: PRESENT: crackles, symmetrical, unlabored. ABSENT: tachypnea, wheezes Cardiovascular exam: PRESENT: diastolic murmur, RRR, +S1, +S2, systolic murmur. ABSENT: tachycardia GI/Abdominal exam: PRESENT: normal bowel sounds, soft. ABSENT: rebound, rigid, tenderness Neurological exam: PRESENT: alert, awake Results Laboratory Results: 07/14/19 04:50 07/14/19 04:50 07/13/19 07/13/19 07/14/19 11:05 12:15 04:50 WBC RBC Hgb Hct MCV MCH MCHC RDW Plt Count Carbonic Acid Cancelled 1.50 H HCO3/H2CO3 Ratio Cancelled 24:1 ABG pH Cancelled 7.48 H ABG pCO2 Cancelled 49.7 H ABG pO2 Cancelled 65.7 L ABG HCO3 Cancelled 36.2 H ABG O2 Saturation Cancelled 93.9 L ABG Base Excess Cancelled 11.4 VBG pH VBG pCO2 VBG HCO3 VBG Base Excess FiO2 Cancelled 3.5L Sodium 140.5 Potassium 5.1 H Chloride 106 Carbon Dioxide 30 Anion Gap 5 BUN 13 Creatinine 0.77 Est GFR ( Amer) > 60 Glucose 100 Calcium 8.2 L Magnesium 2.0 07/14/19 07/14/19 04:50 04:50 WBC 9.4 RBC 2.87 L Hgb 8.2 L Hct 24.9 L MCV 87 MCH 28.6 MCHC 32.9 RDW 14.1 H Plt Count 435 Carbonic Acid HCO3/H2CO3 Ratio ABG pH ABG pCO2 ABG pO2 ABG HCO3 ABG O2 Saturation ABG Base Excess VBG pH 7.39 VBG pCO2 55.9 VBG HCO3 32.9 H VBG Base Excess 6.8 FiO2 Sodium Potassium Chloride Carbon Dioxide Anion Gap BUN Creatinine Est GFR ( Amer) Glucose Calcium Magnesium 07/11/19 04:25 Catheterized Urine Urine Culture - Final Escherichia Coli 07/11/19 07/11/19 07/11/19 04:10 08:07 08:07 Creatine Kinase 97 CK-MB (CK-2) 2.34 Troponin I 0.029 0.040 NT-Pro-B Natriuret Pep 4480 H 07/11/19 07/12/19 07/14/19 20:01 04:39 04:50 Creatine Kinase CK-MB (CK-2) Troponin I 0.056 0.060 NT-Pro-B Natriuret Pep 4530 H Impressions: Chest X-Ray 07/11/19 04:03 IMPRESSION: No acute findings visualized in the chest. Assessment and Plan - Diagnosis (1) Acute hypoxemic respiratory failure Is this a current diagnosis for this admission?: Yes Plan: Likely secondary to CHF exacerbation. Noted SPO2 in the 40s% when found by EMS. Discontinue BiPAP We will also try to wean her off oxygen if SPO2 tolerates. Continue with diuresis. Diamox added. (2) Acute on chronic diastolic CHF (congestive heart failure) Is this a current diagnosis for this admission?: Yes Plan: Lasix 40 mg IV daily-we will transition to p.o. Lasix once able to wean off supplemental oxygen. Diamox added given metabolic alkalosis on yesterday's ABG which is improved on today's venous blood gas. Echocardiogram showing normal ejection fraction with moderate aortic stenosis ROSALBA 1.2 cm, moderate MR, grade 3 diastolic dysfunction with restrictive pattern and moderate to severe pulmonary hypertension with RVSP 60 to 70 mmHg CHF likely worsened by valvular heart disease Continue Coreg, and losartan. Hydralazine dose reduced to twice a day Strict I's and O's, fluid restriction, weigh daily. Replete electrolytes. Cardiology following (3) Valvular heart disease Is this a current diagnosis for this admission?: Yes Plan: Characterized by moderate aortic stenosis with ROSALBA of 1.2 cm and moderate mitral regurgitation both of which are significantly contributing to patient's diastolic heart failure. Seen by cardiology and is not a candidate for any intervention at this time. We will continue with diuresis and afterload reduction. Patient will follow-up with Dr. Ferrer is her primary non emergency services ambulance driver. (4) UTI (urinary tract infection) Qualifiers: Urinary tract infection type: site unspecified Hematuria presence: without hematuria Qualified Code(s): N39.0 - Urinary tract infection, site not specified Is this a current diagnosis for this admission?: Yes Plan: Urine culture growing E. 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 I have also cautioned that patient will need to be risk stratified by patient's non emergency services ambulance driver Dr. Ferrer before endoscopy can be done especially because patient has moderate aortic stenosis and moderate to severe pulmonary hypertension noted on echo at this point and would put her at the increased risk of cardiac event. For this reason, I would hold off on pursuing any endoscopy at this time while inpatient onto patient's current heart failure exacerbation is treated. Monitor H&H and typed and screened Pantoprazole twice daily Venofer day 3 of 3. Continue with p.o. iron sulfate. (6) Diabetes mellitus type 2 in nonobese Is this a current diagnosis for this admission?: Yes Plan: Continue metformin. Sliding scale insulin Accu-Cheks. (7) Dementia Qualifiers: Is this a current diagnosis for this admission?: Yes Plan: Supportive care. 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 (8) HTN (hypertension) Qualifiers: Hypertension type: essential hypertension Qualified Code(s): I10 - Essential (primary) hypertension Is this a current diagnosis for this admission?: Yes Plan: Continue losartan, hydralazine reduced to 50 mg twice daily to avoid hypotension. - Time Time Spent with patient: Less than 15 minutes
[2019-07-14] MEDS: INSULIN REG, HUMAN 100 UNIT/ML 3 ML VIAL (PYX) SUBCUT PRN (12:43)
[2019-07-14] MEDS: IRON SUCROSE COMPLEX 300 MG in NORMAL SALINE 250 ML IV SCH (17:47)
[2019-07-14] MEDS ORDERED: HYDRALAZINE HCL 50 MG TABLET PO SCH (18:00)
[2019-07-14] MEDS: ATORVASTATIN CALCIUM 20 MG TABLET PO SCH (21:33)
[2019-07-14] MEDS: ROPINIROLE HCL 2 MG TABLET PO SCH (21:35)
[2019-07-15] MEDS: NITROGLYCERIN 2% OINTMENT 1 GM PACKET TP SCH ×3 (05:06→17:12)
[2019-07-15 05:26] LABS: ANION GAP 8 (5-19); BLOOD UREA NITROGEN 14 mg/dL (7-20); CALCIUM 8.3 mg/dL (8.4-10.2); CARBON DIOXIDE 26 mmol/L (22-30); CHLORIDE 103 mmol/L (98-107); GLUCOSE 107 mg/dL (75-110); POTASSIUM 4.5 mmol/L (3.6-5.0)
[2019-07-15] MEDS: HEPARIN SOD (PORCINE) 5,000 UNIT/ML 1 ML VIAL SUBCUT SCH ×3 (05:35→21:43)
[2019-07-15] MEDS: PANTOPRAZOLE SODIUM 40 MG TABLET.DR PO SCH ×2 (05:35→17:17)
[2019-07-15] MEDS: LEVOTHYROXINE SODIUM 0.15 MG TABLET PO SCH (05:35)
[2019-07-15] MEDS: ACETAZOLAMIDE 250 MG TABLET PO SCH (11:31)
[2019-07-15] MEDS: CARVEDILOL 12.5 MG TABLET PO SCH ×2 (11:32→21:43)
[2019-07-15] MEDS: ANASTROZOLE 1 MG TABLET PO SCH (11:32)
[2019-07-15] MEDS: FERROUS SULFATE 325 MG TABLET PO SCH (11:32)
[2019-07-15] MEDS: LOSARTAN POTASSIUM 50 MG TABLET PO SCH (11:32)
[2019-07-15] MEDS: METFORMIN HCL 500 MG TABLET PO SCH ×2 (11:32→17:17)
[2019-07-15] MEDS: FUROSEMIDE 40 MG TABLET PO SCH (11:32)
[2019-07-15] MEDS: ESCITALOPRAM OXALATE 10 MG TABLET PO SCH (11:32)
[2019-07-15] MEDS: ASPIRIN 81 MG TABLET, ENT COATED PO SCH (11:32)
[2019-07-15] MEDS: INSULIN REG, HUMAN 100 UNIT/ML 3 ML VIAL (PYX) SUBCUT PRN ×2 (12:38→17:17)
--- NOTE | 2019-07-15 14:46 | PDOC PROGRESS REPORT ---
Subjective Progress Note for:: 07/15/19 Subjective:: Patient feels well. Patient's agreeable for patient going to SNF. Reason For Visit: ACUTE ON CHRONIC DIASTOLIC CONGESTIVE HEART Physical Exam Vital Signs: Temp Pulse Resp BP Pulse Ox 98.1 F 53 L 18 113/45 L 93 07/15/19 12:17 07/15/19 12:17 07/15/19 12:17 07/15/19 12:17 07/15/19 12:17 Intake & Output 07/14/19 07/15/19 07/16/19 06:59 06:59 06:59 Intake Total 1180 1495 Balance 1180 1495 Weight 63.3 kg 61.4 kg General appearance: PRESENT: no acute distress, cooperative Neck exam: ABSENT: JVD Respiratory exam: PRESENT: crackles, symmetrical, unlabored. ABSENT: accessory muscle use, retraction, rhonchi, tachypnea Cardiovascular exam: PRESENT: +S1, +S2 GI/Abdominal exam: PRESENT: soft. ABSENT: tenderness Neurological exam: PRESENT: alert, awake Results Laboratory Results: 07/14/19 04:50 07/15/19 03:57 07/15/19 03:57 Sodium 137.2 Potassium 4.5 Chloride 103 Carbon Dioxide 26 Anion Gap 8 BUN 14 Creatinine 0.77 Est GFR ( Amer) > 60 Glucose 107 Calcium 8.3 L Magnesium 1.8 07/11/19 07/11/19 07/11/19 04:10 08:07 08:07 Creatine Kinase 97 CK-MB (CK-2) 2.34 Troponin I 0.029 0.040 NT-Pro-B Natriuret Pep 4480 H 07/11/19 07/12/19 07/14/19 20:01 04:39 04:50 Creatine Kinase CK-MB (CK-2) Troponin I 0.056 0.060 NT-Pro-B Natriuret Pep 4530 H Impressions: Chest X-Ray 07/11/19 04:03 IMPRESSION: No acute findings visualized in the chest. Assessment and Plan - Diagnosis (1) Acute hypoxemic respiratory failure Is this a current diagnosis for this admission?: Yes Plan: Likely secondary to CHF exacerbation. Noted SPO2 in the 40s% when found by EMS. Discontinue BiPAP We will also try to wean her off oxygen if SPO2 tolerates. Continue Lasix and Diamox. (2) Acute on chronic diastolic CHF (congestive heart failure) Is this a current diagnosis for this admission?: Yes Plan: Transition to Lasix p.o. 40 mg daily. Diamox added given metabolic alkalosis on prior blood gas which is resolving. Echocardiogram showing normal ejection fraction with moderate aortic stenosis ROSALBA 1.2 cm, moderate MR, grade 3 diastolic dysfunction with restrictive pattern and moderate to severe pulmonary hypertension with RVSP 60 to 70 mmHg CHF likely worsened by valvular heart disease Continue Coreg, and losartan. Hydralazine dose reduced to twice a day Strict I's and O's, fluid restriction, weigh daily. Replete electrolytes. Cardiology following (3) Valvular heart disease Is this a current diagnosis for this admission?: Yes (4) UTI (urinary tract infection) Qualifiers: Urinary tract infection type: site unspecified Hematuria presence: without hematuria Qualified Code(s): N39.0 - Urinary tract infection, site not specified Is this a current diagnosis for this admission?: Yes Plan: Urine culture growing E. 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 I have also cautioned that patient will need to be risk stratified by patient's mountain bike guide Dr. Ferrer before endoscopy can be done especially because patient has moderate aortic stenosis and moderate to severe pulmonary hypertension noted on echo at this point and would put her at the increased risk of cardiac event. For this reason, I would hold off on pursuing any endoscopy at this time while inpatient onto patient's current heart failure exacerbation is treated. Monitor H&H and typed and screened Pantoprazole twice daily Completed 3 days of Venofer. Continue with p.o. iron sulfate. (6) Diabetes mellitus type 2 in nonobese Is this a current diagnosis for this admission?: Yes (7) Dementia Qualifiers: Is this a current diagnosis for this admission?: Yes (8) HTN (hypertension) Qualifiers: Hypertension type: essential hypertension Qualified Code(s): I10 - Essential (primary) hypertension Is this a current diagnosis for this admission?: Yes - Plan Summary Summary: Planning discharge to SNF. Discharge planning consulted and made aware. - Time Time Spent with patient: 15-24 minutes
[2019-07-15] MEDS: ATORVASTATIN CALCIUM 20 MG TABLET PO SCH (21:43)
[2019-07-15] MEDS: ROPINIROLE HCL 2 MG TABLET PO SCH (21:43)
[2019-07-16] MEDS: NITROGLYCERIN 2% OINTMENT 1 GM PACKET TP SCH ×4 (01:11→17:16)
[2019-07-16] MEDS: HEPARIN SOD (PORCINE) 5,000 UNIT/ML 1 ML VIAL SUBCUT SCH ×3 (05:57→22:09)
[2019-07-16] MEDS: LEVOTHYROXINE SODIUM 0.15 MG TABLET PO SCH (05:58)
[2019-07-16] MEDS: PANTOPRAZOLE SODIUM 40 MG TABLET.DR PO SCH ×2 (05:58→17:25)
[2019-07-16 08:59] LABS: ANION GAP 9 (5-19); BLOOD UREA NITROGEN 14 mg/dL (7-20); CALCIUM 8.7 mg/dL (8.4-10.2); CARBON DIOXIDE 24 mmol/L (22-30); CHLORIDE 104 mmol/L (98-107); GLUCOSE 106 mg/dL (75-110); POTASSIUM 4.4 mmol/L (3.6-5.0)
[2019-07-16] MEDS: ESCITALOPRAM OXALATE 10 MG TABLET PO SCH (10:05)
[2019-07-16] MEDS: LOSARTAN POTASSIUM 50 MG TABLET PO SCH (10:06)
[2019-07-16] MEDS: ASPIRIN 81 MG TABLET, ENT COATED PO SCH (10:06)
[2019-07-16] MEDS: FERROUS SULFATE 325 MG TABLET PO SCH (10:06)
[2019-07-16] MEDS: CARVEDILOL 12.5 MG TABLET PO SCH ×2 (10:06→22:09)
[2019-07-16] MEDS: FUROSEMIDE 40 MG TABLET PO SCH (10:06)
[2019-07-16] MEDS: ACETAZOLAMIDE 250 MG TABLET PO SCH (10:06)
[2019-07-16] MEDS: METFORMIN HCL 500 MG TABLET PO SCH ×2 (10:06→17:24)
[2019-07-16] MEDS: ANASTROZOLE 1 MG TABLET PO SCH (10:06)
--- NOTE | 2019-07-16 13:56 | PDOC PROGRESS REPORT ---
Subjective Progress Note for:: 07/16/19 Subjective:: Patient has remained off oxygen and is comfortable on room air. Denies shortness of breath. Patient still not able to straighten her left knee. Denies any pain in the region but whenever I pull on it attempting to extended the patient stiffens up her leg and flexes it. Patient continues to state that she has no problems with her knee though clearly she does. Patient's confirms that this is a new finding that occurred during the past few days. Reason For Visit: ACUTE ON CHRONIC DIASTOLIC CONGESTIVE HEART Physical Exam Vital Signs: Temp Pulse Resp BP Pulse Ox 98.6 F 58 L 18 138/48 H 98 07/16/19 11:35 07/16/19 11:35 07/16/19 11:35 07/16/19 11:35 07/16/19 11:35 Intake & Output 07/15/19 07/16/19 07/17/19 06:59 06:59 06:59 Intake Total 1495 720 Balance 1495 720 Weight 61.4 kg 64.5 kg General appearance: PRESENT: no acute distress, cooperative, other - Seen while up and awake and she has just finished breakfast. Neck exam: ABSENT: JVD Respiratory exam: PRESENT: crackles - improved, unlabored. ABSENT: tachypnea, wheezes Cardiovascular exam: PRESENT: RRR, +S1, +S2. ABSENT: tachycardia GI/Abdominal exam: PRESENT: soft. ABSENT: normal bowel sounds, rebound, rigid, tenderness Extremities exam: PRESENT: other - Does not endorse any pain or tenderness in left knee but does not seem to be able to straighten it out. Always keeping it flexed. Results Laboratory Results: 07/14/19 04:50 07/16/19 08:19 07/16/19 08:19 Sodium 136.9 L Potassium 4.4 Chloride 104 Carbon Dioxide 24 Anion Gap 9 BUN 14 Creatinine 0.81 Est GFR ( Amer) > 60 Glucose 106 Calcium 8.7 07/11/19 05:38 Blood Blood Culture - Final NO GROWTH IN 5 DAYS 07/11/19 04:10 Blood Blood Culture - Final NO GROWTH IN 5 DAYS 07/11/19 07/11/19 07/11/19 04:10 08:07 08:07 Creatine Kinase 97 CK-MB (CK-2) 2.34 Troponin I 0.029 0.040 NT-Pro-B Natriuret Pep 4480 H 07/11/19 07/12/19 07/14/19 20:01 04:39 04:50 Creatine Kinase CK-MB (CK-2) Troponin I 0.056 0.060 NT-Pro-B Natriuret Pep 4530 H Impressions: Chest X-Ray 07/11/19 04:03 IMPRESSION: No acute findings visualized in the chest. Assessment and Plan - Diagnosis (1) Acute hypoxemic respiratory failure Is this a current diagnosis for this admission?: Yes Plan: Likely secondary to CHF exacerbation. Noted SPO2 in the 40s% when found by EMS. Currently improved significantly with diuresis. Now maintaining SPO2 over 90% on room air. (2) Acute on chronic diastolic CHF (congestive heart failure) Is this a current diagnosis for this admission?: Yes Plan: CHF likely worsened by poor compliance with salt restriction and valvular heart disease Echocardiogram showing normal ejection fraction with moderate aortic stenosis ROSALBA 1.2 cm, moderate MR, grade 3 diastolic dysfunction with restrictive pattern and moderate to severe pulmonary hypertension with RVSP 60 to 70 mmHg Continue on Lasix p.o. 40 mg daily. I will discontinue Diamox now that metabolic alkalosis has resolved. Start on small dose of Aldactone. Continue Coreg, and losartan. Hydralazine discontinued. (3) Valvular heart disease Is this a current diagnosis for this admission?: Yes Plan: Characterized by moderate aortic stenosis with ROSALBA of 1.2 cm and moderate mitral regurgitation both of which are significantly contributing to patient's diastolic heart failure. Seen by cardiology and is not a candidate for any intervention at this time. We will continue with diuresis and afterload reduction. Patient will follow-up with Dr. Ferrer is her primary lining presser. (4) Flexion contracture of left knee Is this a current diagnosis for this admission?: Yes Plan: Check x-rays of left lower extremity (5) UTI (urinary tract infection) Qualifiers: Urinary tract infection type: site unspecified Hematuria presence: without hematuria Qualified Code(s): N39.0 - Urinary tract infection, site not specified Is this a current diagnosis for this admission?: Yes Plan: Urine culture growing E. coli Completed 4 days of Rocephin (6) Iron deficiency anemia Qualifiers: Iron deficiency anemia type: chronic blood loss Qualified Code(s): D50.0 - Iron deficiency anemia secondary to blood loss (chronic) Is this a current diagnosis for this admission?: Yes Plan: Patient tells me that patient has had episodes of melena and is scheduled to get an endoscopy outpatient which has been set up by primary care provider and will be done when patient is discharged. I have also cautioned that patient will need to be risk stratified by patient's lining presser Dr. Ferrer before endoscopy can be done especially because patient has moderate aortic stenosis and moderate to severe pulmonary hypertension noted on echo at this point and would put her at the increased risk of cardiac event. For this reason, I would hold off on pursuing any endoscopy at this time while inpatient onto patient's current heart failure exacerbation is treated. Pantoprazole twice daily Completed 3 days of Venofer. Continue with p.o. iron sulfate. (7) Diabetes mellitus type 2 in nonobese Is this a current diagnosis for this admission?: Yes Plan: Continue metformin. Sliding scale insulin Accu-Cheks. (8) Dementia Qualifiers: Is this a current diagnosis for this admission?: Yes (9) HTN (hypertension) Qualifiers: Hypertension type: essential hypertension Qualified Code(s): I10 - Essential (primary) hypertension Is this a current diagnosis for this admission?: Yes - Plan Summary Summary: Planning discharge to SNF. Discharge planning consulted and made aware. - Time Time Spent with patient: 15-24 minutes
--- NOTE | 2019-07-16 14:15 | RADIOLOGY REPORT (SQ) ---
EXAM DESCRIPTION: TIBIA FIBULA LEFT COMPLETED DATE/TIME: 07/16/2019 2:06 pm REASON FOR STUDY: unable to straighten left knee. include knee COMPARISON: None. NUMBER OF VIEWS: Two views. TECHNIQUE: Two radiographic images acquired of the left tibia and fibula to include the knee and ank le in at least one projection. LIMITATIONS: None. FINDINGS: MINERALIZATION: Osteopenia. BONES: No acute fracture or dislocation. No worrisome bone lesions. SOFT TISSUES: No obvious swelling or foreign body. OTHER: Degenerative changes of the knee. IMPRESSION: NEGATIVE STUDY OF THE LEFT TIBIA AND FIBULA. NO RADIOGRAPHIC EVIDENCE OF ACUTE INJURY. TECHNICAL DOCUMENTATION: JOB ID: [id number] [employer]- All Rights Reserved Reading location - IP/workstation name: [email or web address]
--- NOTE | 2019-07-16 14:16 | RADIOLOGY REPORT (SQ) ---
EXAM DESCRIPTION: KNEE LEFT 3 VIEWS COMPLETED DATE/TIME: 07/16/2019 2:06 pm REASON FOR STUDY: unable to straighten left knee COMPARISON: None. NUMBER OF VIEWS: Three views. TECHNIQUE: AP, lateral, and sunrise patella radiographic images acquired of the left knee. LIMITATIONS: None. FINDINGS: MINERALIZATION: Osteopenia. BONES: No acute fracture or dislocation. No worrisome bone lesions. JOINT: Moderate effusion. Marked medial compartment joint space narrowing. SOFT TISSUES: No soft tissue swelling. No radio-opaque foreign body. OTHER: No other significant finding. IMPRESSION: Osteoarthritis. Joint effusion. TECHNICAL DOCUMENTATION: JOB ID: [id number] [employer]- All Rights Reserved Reading location - IP/workstation name: [email or web address]
--- NOTE | 2019-07-16 14:18 | RADIOLOGY REPORT (SQ) ---
EXAM DESCRIPTION: HIP LEFT AP/LATERAL COMPLETED DATE/TIME: 07/16/2019 2:06 pm REASON FOR STUDY: unable to straighten left knee COMPARISON: None. NUMBER OF VIEWS: Two views. TECHNIQUE: AP pelvis and additional frog-leg view of the left hip. LIMITATIONS: None. FINDINGS: MINERALIZATION: Osteopenia. LEFT HIP: No fracture or dislocation. No worrisome bone lesions. No contour deformity. No joint spa ce narrowing. RIGHT HIP: No fracture or dislocation. No worrisome bone lesions. PUBIS AND ISCHIUM: No fracture. PELVIS: No fracture. SACRUM: No fracture or dislocation. No worrisome bone lesions. LOWER LUMBAR SPINE: No fracture or dislocation. No worrisome bone lesions. No significant disc disea se. SOFT TISSUES: No findings. OTHER: Stimulator. IMPRESSION: Osteopenia. No acute findings. TECHNICAL DOCUMENTATION: JOB ID: [id number] [employer]- All Rights Reserved Reading location - IP/workstation name: [email or web address]
--- NOTE | 2019-07-16 19:19 | PDOC PROGRESS REPORT ---
Subjective Progress Note for:: 07/14/19 Subjective:: Patient has been in the room. Patient was noted to be stable laying in bed eating breakfast. Patient seems to be doing better with gradual improvement. Pt is denying any chest arm or neck discomfort. Patient denying any PND, orthopnea. Patient denied any sustained palpitations, dizziness, syncope, near syncope. Patient denying any fever chills. Patient denying any other significant discomfort. Patient is maintaining sinus rhythm. Review of systems: Rest review of systems negative. Medications: Medications have been reviewed. Reason For Visit: ACUTE ON CHRONIC DIASTOLIC CONGESTIVE HEART Physical Exam Vital Signs: Temp Pulse Resp BP Pulse Ox 98.1 F 64 16 129/39 H 94 07/14/19 11:49 07/14/19 14:00 07/14/19 11:49 07/14/19 11:49 07/14/19 13:03 Intake & Output 07/13/19 07/14/19 07/15/19 06:59 06:59 06:59 Intake Total 180 1180 520 Balance 180 1180 520 Weight 61.8 kg 63.3 kg Exam: GENERAL: well-nourished and in no acute distress. Alert orientation not checked at this patient reported to be confused. HEAD: Atraumatic, normocephalic. EYES: MAIK, sclera anicteric, conjunctiva are normal. ENT: Moist mucous membranes. No oral ulcerations or bleeding gums noted. No obvious ear, nose or throat abnormalities noted. NECK: supple without lymphadenopathy. Trachea is central. No cervical or axillary lymphadenopathy noted. Carotids are 2+, JVD WNL LUNGS: Breath sounds clear bilaterally. No wheezes rales or rhonchi noted. No significant dullness noted on percussion. CHEST: Palpation of the chest wall shows no significant chest wall tenderness. HEART: [place] [employer], No PSH, 1/6 VANCE aortic area, 1/6 [place] systolic murmur mitral area, no rubs, no gallops. ABDOMEN: Soft, no significant tenderness appreciated, normoactive bowel sounds. No guarding, no rebound. No rigidity noted . No masses appreciated. EXTREMITIES: Pedal pulses are 1-2+, no calf tenderness noted. No clubbing or cyanosis. negative pedal edema noted NEUROLOGICAL: Focused neurological exam showed no significant neurologic deficit. Normal speech, no focal weakness appreciated. PSYCH: Judgment and insight not checked. SKIN: No significant ecchymosis, skin is noted to be warm. MUSCULOSKELETAL EXAM: No significant acute joint swelling noted. Results Laboratory Results: 07/14/19 04:50 07/14/19 04:50 07/14/19 07/14/19 07/14/19 04:50 04:50 04:50 WBC 9.4 RBC 2.87 L Hgb 8.2 L Hct 24.9 L MCV 87 MCH 28.6 MCHC 32.9 RDW 14.1 H Plt Count 435 VBG pH 7.39 VBG pCO2 55.9 VBG HCO3 32.9 H VBG Base Excess 6.8 Sodium 140.5 Potassium 5.1 H Chloride 106 Carbon Dioxide 30 Anion Gap 5 BUN 13 Creatinine 0.77 Est GFR ( Amer) > 60 Glucose 100 Calcium 8.2 L Magnesium 2.0 07/11/19 07/11/19 07/11/19 04:10 08:07 08:07 Creatine Kinase 97 CK-MB (CK-2) 2.34 Troponin I 0.029 0.040 NT-Pro-B Natriuret Pep 4480 H 07/11/19 07/12/19 07/14/19 20:01 04:39 04:50 Creatine Kinase CK-MB (CK-2) Troponin I 0.056 0.060 NT-Pro-B Natriuret Pep 4530 H Impressions: Chest X-Ray 07/11/19 04:03 IMPRESSION: No acute findings visualized in the chest. Assessment & Plan - Diagnosis (1) Dementia Qualifiers: Dementia type: unspecified type Dementia behavioral disturbance: without behavioral disturbance Qualified Code(s): F03.90 - Unspecified dementia without behavioral disturbance (2) Acute hypoxemic respiratory failure Is this a current diagnosis for this admission?: Yes (3) Diabetes mellitus type 2 in nonobese Is this a current diagnosis for this admission?: Yes (4) Moderate aortic stenosis Is this a current diagnosis for this admission?: Yes (5) Acute on chronic diastolic CHF (congestive heart failure) Is this a current diagnosis for this admission?: Yes (6) COPD (chronic obstructive pulmonary disease) Qualifiers: Chronic bronchitis type: unspecified Is this a current diagnosis for this admission?: Yes - Notes Notes: Telemetry shows sinus rhythm, no acute ST-T wave changes are noted. No significant tacky or bradycardia arrhythmias noted. I noted that patient has been made a DO NOT RESUSCITATE. Patient has moderate valvular involvement but does not need any intervention. Patient has congestive heart failure related to diastolic dysfunction but currently seems compensated. My previous recommendation remains. Patient can follow-up with me as an outpatient if she and her family desires. - Time Time with patient: 15-25 minutes - More than 50% of the time spent coordinating care, discussing management plans with involved caregivers. Management plans discussed with involved personnels. Medical decision making was of moderate to high complexity, patient's has multiple comorbidities. Medications reviewed and adjusted accordingly: Yes
[2019-07-16] MEDS: ROPINIROLE HCL 2 MG TABLET PO SCH (22:09)
[2019-07-16] MEDS: ATORVASTATIN CALCIUM 20 MG TABLET PO SCH (22:09)
[2019-07-17] MEDS: HEPARIN SOD (PORCINE) 5,000 UNIT/ML 1 ML VIAL SUBCUT SCH ×2 (05:11→13:08)
[2019-07-17] MEDS: LEVOTHYROXINE SODIUM 0.15 MG TABLET PO SCH (05:11)
[2019-07-17] MEDS: PANTOPRAZOLE SODIUM 40 MG TABLET.DR PO SCH ×2 (05:11→17:06)
[2019-07-17] MEDS: FUROSEMIDE 40 MG TABLET PO SCH (09:27)
[2019-07-17] MEDS: ASPIRIN 81 MG TABLET, ENT COATED PO SCH (09:27)
[2019-07-17] MEDS: METFORMIN HCL 500 MG TABLET PO SCH ×2 (09:27→17:06)
[2019-07-17] MEDS: FERROUS SULFATE 325 MG TABLET PO SCH (09:27)
[2019-07-17] MEDS: CARVEDILOL 12.5 MG TABLET PO SCH (09:27)
[2019-07-17] MEDS: ESCITALOPRAM OXALATE 10 MG TABLET PO SCH (09:27)
[2019-07-17] MEDS: LOSARTAN POTASSIUM 50 MG TABLET PO SCH (09:27)
[2019-07-17] MEDS: ANASTROZOLE 1 MG TABLET PO SCH (09:28)
[2019-07-17] MEDS ORDERED: SPIRONOLACTONE 25 MG TABLET PO SCH (10:00)
--- NOTE | 2019-07-17 18:06 | PDOC TRANSFER SUMMARY ---
Impression - Admit/DC Date/PCP Admission Date/Primary Care Provider: 07/11/19 07:32 CORAZON ACRRION PA-C Discharge Date: 07/17/19 - Discharge Diagnosis (1) Acute hypoxemic respiratory failure Is this a current diagnosis for this admission?: Yes (2) Acute on chronic diastolic CHF (congestive heart failure) Is this a current diagnosis for this admission?: Yes (3) Valvular heart disease Is this a current diagnosis for this admission?: Yes (4) Flexion contracture of left knee Is this a current diagnosis for this admission?: Yes (5) UTI (urinary tract infection) Is this a current diagnosis for this admission?: Yes (6) Iron deficiency anemia Is this a current diagnosis for this admission?: Yes (7) Diabetes mellitus type 2 in nonobese Is this a current diagnosis for this admission?: Yes (8) Dementia Is this a current diagnosis for this admission?: Yes (9) HTN (hypertension) Is this a current diagnosis for this admission?: Yes - Additional Information Resuscitation Status: Do Not Resuscitate Referrals: CORAZON CARRION PA-C [Primary Care Provider] - 07/18/19 1:30 pm RC HERNANDEZ MD [ACTIVE PROVISIONAL STAFF] - Home Medications: Anastrozole [Arimidex 1 mg Tablet] 1 mg PO DAILY 07/11/19 Aspirin [Ecotrin 81 mg EC Tablet] 81 mg PO DAILY 07/11/19 Atorvastatin Calcium [Lipitor 20 mg Tablet] 20 mg PO QHS 07/11/19 Escitalopram Oxalate [Lexapro] 20 mg PO DAILY 07/11/19 Levothyroxine Sodium [Synthroid 0.15 mg Tablet] 0.15 mg PO Q6AM 07/11/19 Losartan Potassium [Cozaar] 100 mg PO DAILY 07/11/19 Metformin HCl [Glucophage 500 mg Tablet] 500 mg PO BID 07/11/19 Ropinirole HCl [Requip 2 mg Tablet] 2 mg PO QHS 07/11/19 Acetaminophen [Tylenol 325 mg Tablet] 650 mg PO Q4HP PRN tablet 07/17/19 Ferrous Sulfate [Feosol 325 mg Tablet] 325 mg PO DAILY tablet 07/17/19 Furosemide [Lasix 40 mg Tablet] 40 mg PO DAILY tablet 07/17/19 Pantoprazole Sodium [Protonix [address] Tablet] 40 mg PO BID@0600,1700 tablet.dr 07/17/19 Spironolactone [Aldactone 25 mg Tablet] 25 mg PO DAILY tablet 07/17/19 History of Present Illiness History of Present Illness: SANDY DANG is a 89 year old female with a history of diastolic heart failure, hypertension, COPD, diabetes, dementia and difficulty with hearing, who was brought into the hospital this morning after her called EMS after noting her to be difficult to arouse. On arrival of EMS, patient was noted to be significantly hypoxic in the 40s on room air and hypotensive in the 80s systolic. She was subsequently placed on a nonrebreather with reported sats improving to the high 80s and then brought into the hospital. In the ER, patient was de-escalated to a Ventimask at 50% with SPO2 improving to low 90%. Later transitioned to BiPAP with suspicion of fluid overload. Subsequently referred to hospitalist service for admission for acute on chronic congestive heart failure. Apparently, patient's reported that patient had missed some doses of her Lasix. Currently patient is more awake but is not at bedside. Patient denies any shortness of breath, chest pain orthopnea, lower extremity swelling but endorses some occasions of PND. Patient is not an adequate historian. Hospital Course Hospital Course: (1) Acute hypoxemic respiratory failure Is this a current diagnosis for this admission?: Yes Plan: Likely secondary to CHF exacerbation. Noted SPO2 in the 40s% when found by EMS. Initially required BiPAP on admission 10 de-escalated to nasal cannula. Currently improved significantly with diuresis. Now maintaining SPO2 in the mid 90s on room air for the past few days now. (2) Acute on chronic diastolic CHF (congestive heart failure) Is this a current diagnosis for this admission?: Yes Plan: CHF likely worsened by poor compliance with salt restriction and valvular heart disease Echocardiogram on 07/11/19 showing normal ejection fraction with moderate aortic stenosis ROSALBA 1.2 cm, moderate MR, grade 3 diastolic dysfunction with restrictive pattern and moderate to severe pulmonary hypertension with RVSP 60 to 70 mmHg Continue on Lasix p.o. 40 mg daily. I briefly placed on Diamox due to metabolic alkalosis while diuresing aggressively with Lasix as well. I discontinued Diamox 2 days ago after metabolic alkalosis resolved and stayed resolved and Lasix p.o. continued. I have started her on a small dose of Aldactone. Continue losartan. Hydralazine and nifedipine were discontinued due to low blood pressures. Coreg discontinued today due to sinus bradycardia into the high 40s but asymptomatic and responded to exercise. Heart rate back into the mid to high 50s. (3) Valvular heart disease Is this a current diagnosis for this admission?: Yes Plan: Characterized by moderate aortic stenosis with ROSALBA of 1.2 cm and moderate mitral regurgitation both of which are significantly contributing to patient's diastolic heart failure. Seen by cardiology during hospital stay and was deemed not a candidate for any intervention at this time. Continue gentle diuresis and afterload reduction. Patient will follow-up with Dr. Hernandez is her primary freight hustler. (4) Flexion contracture of left knee Is this a current diagnosis for this admission?: Yes Plan: X-ray of the left leg including hip, knee and tibia/fibula showed no fracture, no dislocation but did show significant osteoarthritis with some effusion. She will benefit from pain control with Tylenol and physical therapy. (5) UTI (urinary tract infection) Qualifiers: Urinary tract infection type: site unspecified Hematuria presence: without hematuria Qualified Code(s): N39.0 - Urinary tract infection, site not specified Is this a current diagnosis for this admission?: Yes Plan: Urine culture growing E. coli Completed 4 days of Rocephin (6) Iron deficiency anemia Qualifiers: Iron deficiency anemia type: chronic blood loss Qualified Code(s): D50.0 - Iron deficiency anemia secondary to blood loss (chronic) Is this a current diagnosis for this admission?: Yes Plan: Patient tells me that patient has had episodes of melena and is scheduled to get an endoscopy outpatient which has been set up by primary care provider and will be done when patient is discharged. I have also cautioned that patient will need to be risk stratified by patient's freight hustler Dr. Hernandez before endoscopy can be done especially because patient has moderate aortic stenosis and moderate to severe pulmonary hypertension noted on echo at this point and would put her at the increased risk of cardiac event. For this reason, I held off on pursuing any endoscopy at this time while inpatient until patient's current heart failure exacerbation was treated. Patient will need to follow-up with Dr. Hernandez for cardiac clearance before being placed under any sedation. Pantoprazole twice daily Completed 3 days of Venofer. Continue with p.o. iron sulfate. (7) Diabetes mellitus type 2 in nonobese Is this a current diagnosis for this admission?: Yes Plan: Continue metformin. Sliding scale insulin Accu-Cheks. (8) Dementia Qualifiers: Is this a current diagnosis for this admission?: Yes (9) HTN (hypertension) Qualifiers: Hypertension type: essential hypertension Qualified Code(s): I10 - Essent ial (primary) hypertension Is this a current diagnosis for this admission?: Yes Physical Exam Vital Signs: Temp Pulse Resp BP Pulse Ox 97.9 F 48 L 18 129/49 H 97 07/17/19 11:33 07/17/19 13:41 07/17/19 11:33 07/17/19 11:33 07/17/19 11:33 Intake & Output 07/16/19 07/17/19 07/18/19 06:59 06:59 06:59 Intake Total 720 720 720 Balance 720 720 720 Weight 64.5 kg 60.4 kg General appearance: PRESENT: no acute distress, cooperative Neck exam: ABSENT: JVD Respiratory exam: PRESENT: clear to auscultation stella, symmetrical, unlabored. ABSENT: tachypnea, wheezes Cardiovascular exam: PRESENT: bradycardia, diastolic murmur, RRR, +S1, +S2, systolic murmur. ABSENT: tachycardia GI/Abdominal exam: PRESENT: soft. ABSENT: normal bowel sounds, rebound, rigid, tenderness Extremities exam: PRESENT: other - Stiffness in the left knee with mild joint effusion Neurological exam: PRESENT: alert, awake, oriented to person, other - Very hard of hearing. Forgetful.. ABSENT: oriented to place, oriented to time, oriented to situation Psychiatric exam: ABSENT: agitated, anxious Results Laboratory Results: WBC 9.4 10^3/uL (4.0-10.5) 07/14/19 04:50 RBC 2.87 10^6/uL (3.72-5.28) L 07/14/19 04:50 Hgb 8.2 g/dL (12.0-15.5) L 07/14/19 04:50 Hct 24.9 % (36.0-47.0) L 07/14/19 04:50 MCV 87 fl (80-97) 07/14/19 04:50 MCH 28.6 pg (27.0-33.4) 07/14/19 04:50 MCHC 32.9 g/dL (32.0-36.0) 07/14/19 04:50 RDW 14.1 % (11.5-14.0) H 07/14/19 04:50 Plt Count 435 10^3/uL (150-450) 07/14/19 04:50 Lymph % (Auto) 23.4 % (13-45) 07/12/19 04:39 Adair % (Auto) 13.2 % (3-13) H 07/12/19 04:39 Eos % (Auto) 1.1 % (0-6) 07/12/19 04:39 Baso % (Auto) 1.1 % (0-2) 07/12/19 04:39 Reticulocyte # 0.126 10^6/uL (0.028-0.122) H 07/12/19 04:39 Absolute Neuts (auto) 3.8 10^3/uL (1.7-8.2) 07/12/19 04:39 Absolute Lymphs (auto) 1.4 10^3/uL (0.5-4.7) 07/12/19 04:39 Absolute Monos (auto) 0.8 10^3/uL (0.1-1.4) 07/12/19 04:39 Absolute Eos (auto) 0.1 10^3/uL (0.0-0.6) 07/12/19 04:39 Absolute Basos (auto) 0.1 10^3/uL (0.0-0.2) 07/12/19 04:39 Seg Neutrophils % 61.2 % (42-78) 07/12/19 04:39 Retic Count (auto) 4.50 % (0.66-2.85) H 07/12/19 04:39 PT 15.2 SEC (11.4-15.4) 07/11/19 04:10 INR 1.19 07/11/19 04:10 Carbonic Acid 1.50 mmol/L (1.05-1.35) H 07/13/19 12:15 HCO3/H2CO3 Ratio 24:1 07/13/19 12:15 ABG pH 7.48 (7.35-7.45) H 07/13/19 12:15 ABG pCO2 49.7 mmHg (35-45) H 07/13/19 12:15 ABG pO2 65.7 mmHg (80-100) L 07/13/19 12:15 ABG HCO3 36.2 mmol/L (20-24) H 07/13/19 12:15 ABG Total CO2 37.7 mmol/L (21-25) H 07/13/19 12:15 ABG O2 Saturation 93.9 % (94-98) L 07/13/19 12:15 ABG Base Excess 11.4 mmol/L 07/13/19 12:15 VBG pH 7.39 (7.30-7.42) 07/14/19 04:50 VBG pCO2 55.9 mmHg (35-63) 07/14/19 04:50 VBG HCO3 32.9 mmol/L (20-32) H 07/14/19 04:50 VBG Base Excess 6.8 mmol/L 07/14/19 04:50 FiO2 3.5L 07/13/19 12:15 Sodium 136.9 mmol/L (137-145) L 07/16/19 08:19 Potassium 4.4 mmol/L (3.6-5.0) 07/16/19 08:19 Chloride 104 mmol/L (98-107) 07/16/19 08:19 Carbon Dioxide 24 mmol/L (22-30) 07/16/19 08:19 Anion Gap 9 (5-19) 07/16/19 08:19 BUN 14 mg/dL (7-20) 07/16/19 08:19 Creatinine 0.81 mg/dL (0.52-1.25) 07/16/19 08:19 Est GFR ( Amer) > 60 (>60) 07/16/19 08:19 Est GFR (MDRD) Non-Af > 60 (>60) 07/16/19 08:19 Glucose 106 mg/dL (75-110) 07/16/19 08:19 POC Glucose 136 mg/dL (70-110) H 07/17/19 16:26 Lactic Acid 1.2 mmol/L (0.7-2.1) 07/11/19 11:30 Calcium 8.7 mg/dL (8.4-10.2) 07/16/19 08:19 Magnesium 1.8 mg/dL (1.6-2.3) 07/15/19 03:57 Iron 18.3 ug/dL (37-170) L 07/12/19 04:39 TIBC 328 ug/dL (250-450) 07/12/19 04:39 % Saturation 6 % 07/12/19 04:39 Ferritin 11.40 ng/mL (11.1-264.0) 07/12/19 04:39 Total Bilirubin 0.5 mg/dL (0.2-1.3) 07/11/19 04:10 Direct Bilirubin 0.0 mg/dL (0.0-0.4) 07/11/19 04:10 Neonat Total Bilirubin Not Reportable 07/11/19 04:10 Neonat Direct Bilirubin Not Reportable 07/11/19 04:10 Neonat Indirect Bili Not Reportable 07/11/19 04:10 AST 30 U/L (14-36) 07/11/19 04:10 ALT 18 U/L (<35) 07/11/19 04:10 Alkaline Phosphatase 116 U/L (38-126) 07/11/19 04:10 Creatine Kinase 97 U/L (30-135) 07/11/19 08:07 CK-MB (CK-2) 2.34 ng/mL (<4.55) 07/11/19 08:07 Troponin I 0.060 ng/mL 07/12/19 04:39 NT-Pro-B Natriuret Pep 4530 pg/mL (<450) H 07/14/19 04:50 Total Protein 5.9 g/dL (6.3-8.2) L 07/11/19 04:10 Albumin 3.2 g/dL (3.5-5.0) L 07/11/19 04:10 Triglycerides 60 mg/dL (<150) 07/12/19 04:39 Cholesterol 74.25 mg/dL (0-200) 07/12/19 04:39 LDL Cholesterol Direct < 30 mg/dL (<100) 07/12/19 04:39 VLDL Cholesterol 12.0 mg/dL (10-31) 07/12/19 04:39 HDL Cholesterol 37 mg/dL (>40) L 07/12/19 04:39 Vitamin B12 > 1000.0 pg/mL (239-931) H 07/12/19 04:39 Folate 18.00 ng/mL (>2.76) 07/12/19 04:39 TSH 4.66 uIU/mL (0.47-4.68) 07/12/19 04:39 Urine Color YELLOW 07/11/19 04:25 Urine Appearance SLIGHTLY-CLOUDY 07/11/19 04:25 Urine pH 5.0 (5.0-9.0) 07/11/19 04:25 Ur Specific Lipscomb 1.015 07/11/19 04:25 Urine Protein 100 mg/dL (NEGATIVE) H 07/11/19 04:25 Urine Glucose (UA) NEGATIVE mg/dL (NEGATIVE) 07/11/19 04:25 Urine Ketones NEGATIVE mg/dL (NEGATIVE) 07/11/19 04:25 Urine Blood NEGATIVE (NEGATIVE) 07/11/19 04:25 Urine Nitrite (Reflex) POSITIVE (NEGATIVE) H 07/11/19 04:25 Urine Bilirubin NEGATIVE (NEGATIVE) 07/11/19 04:25 Urine Urobilinogen NEGATIVE mg/dL (<2.0) 07/11/19 04:25 Leukocyte Esterase Rfl SMALL (NEGATIVE) H 07/11/19 04:25 Urine RBC (Auto) 1 /HPF 07/11/19 04:25 U Hyaline Cast (Auto) 5 /LPF 07/11/19 04:25 Urine Bacteria (Auto) 3+ /HPF 07/11/19 04:25 Urine WBC (Reflex) 38 /HPF 07/11/19 04:25 Urine WBC Clumps FEW /HPF 07/11/19 04:25 Squamous Epi Cells Auto 3 /HPF 07/11/19 04:25 Urine Mucus (Auto) RARE /LPF 07/11/19 04:25 Urine Ascorbic Acid NEGATIVE (NEGATIVE) 07/11/19 04:25 Blood Type O POSITIVE 07/13/19 04:24 Antibody Screen NEGATIVE 07/13/19 04:24 07/11/19 07/11/19 07/11/19 04:10 08:07 20:01 CK-MB (CK-2) 2.34 Troponin I 0.029 0.040 0.056 NT-Pro-B Natriuret Pep 4480 H 07/12/19 07/14/19 04:39 04:50 CK-MB (CK-2) Troponin I 0.060 NT-Pro-B Natriuret Pep 4530 H Impressions: Chest X-Ray 07/11/19 04:03 IMPRESSION: No acute findings visualized in the chest. Hip X-Ray 07/16/19 00:00 IMPRESSION: Osteopenia. No acute findings. Tibia/Fibula X-Ray 07/16/19 00:00 IMPRESSION: NEGATIVE STUDY OF THE LEFT TIBIA AND FIBULA. NO RADIOGRAPHIC EVIDENCE OF ACUTE INJURY. Knee X-Ray 07/16/19 13:22 IMPRESSION: Osteoarthritis. Joint effusion. Plan Plan of Treatment: Continue medications as prescribed. Patient is to follow-up with the appropriate doctors. Repeat BMP in 1 week. Time Spent: Greater than 30 Minutes Stroke Is this a Stroke Patient?: No Acute Heart Failure - Is this a Heart Failure Patient?: Yes Documentation of LVEF assessment?: Yes LVEF < 40%?: No- if no continue to question #3 3. Anticoagulant therapy for permanect/persistent/paraoxysmal Afib or Aflutter: N/A Follow-up Appointment scheduled within 7 days?: Yes
[2019-07-17 19:41] VITALS: BP 141/67
== END 2019-07-17 19:44 | DRG 189 ==
LOC: ER 03:55 → EH 07:32 → 3N 18:01
PROVIDERS: ADMIT Emergency Medicine; ATTEND Emergency Medicine
PROC: 5A09457 Assistance with Respiratory Ventilation, 24-96 Consecutive Hours, Continuous Positive Airway Pressure (ICD-10-PCS; principal; 2019-07-11)
DX: J96.01 Acute respiratory failure with hypoxia (principal); I50.33 Acute on chronic diastolic (congestive) heart failure; N39.0 Urinary tract infection, site not specified; M24.562 Contracture, left knee; E11.9 Type 2 diabetes mellitus without complications; F03.90 Unspecified dementia, unspecified severity, without behavioral disturbance, psychotic disturbance, mood disturbance, and anxiety; I11.0 Hypertensive heart disease with heart failure; J44.9 Chronic obstructive pulmonary disease, unspecified; D50.0 Iron deficiency anemia secondary to blood loss (chronic); I35.0 Nonrheumatic aortic (valve) stenosis; E78.5 Hyperlipidemia, unspecified; B96.20 Unspecified Escherichia coli [E. coli] as the cause of diseases classified elsewhere; Z66 Do not resuscitate; E78.00 Pure hypercholesterolemia, unspecified; Z79.899 Other long term (current) drug therapy; Z79.82 Long term (current) use of aspirin; Z79.84 Long term (current) use of oral hypoglycemic drugs; Z85.3 Personal history of malignant neoplasm of breast; Z90.11 Acquired absence of right breast and nipple; Z88.8 Allergy status to other drugs, medicaments and biological substances; Z79.890 Hormone replacement therapy
CPT/HCPCS: 36415; 36600; 51701; 71045; 80048; 80053; 80061; 81001; 82550; 82553; 82607; 82728; 82746; 82803; 82962; 83540; 83550; 83605; 83735; 83880; 84443; 84484; 85025; 85027; 85045; 85610; 86850; 86900; 86901; 87040; 87086; 87088; 87186; 93005; 93010; 93306; 94660; 96365; 99285; J0696; J1644; J1756; J1815; J1940; J3475; J3490; J7050

== ENCOUNTER 2019-10-07 16:11 | Inpatient (IN) | payer MEDICARE, OTHER ==
[2019-10-07 16:59] LABS: URINE AMPHETAMINES SCREEN NEGATIVE; URINE BARBITURATES SCREEN NEGATIVE; URINE BENZODIAZEPINES SCREEN NEGATIVE; URINE COCAINE SCREEN NEGATIVE; URINE MARIJUANA (THC) SCREEN NEGATIVE; URINE METHADONE SCREEN NEGATIVE; URINE PHENCYCLIDINE SCREEN NEGATIVE
[2019-10-07 17:06] LABS: ALBUMIN 2.7 g/dL (3.5-5.0); ALKALINE PHOSPHATASE 135 U/L (38-126); ANION GAP 6 (5-19); ASPARTATE AMINO TRANSFERASE 33 U/L (14-36); BILIRUBIN,TOTAL 0.3 mg/dL (0.2-1.3); BLOOD UREA NITROGEN 11 mg/dL (7-20); CALCIUM 8.1 mg/dL (8.4-10.2); CARBON DIOXIDE 30 mmol/L (22-30); CHLORIDE 99 mmol/L (98-107); GLUCOSE 155 mg/dL (75-110); POTASSIUM 3.8 mmol/L (3.6-5.0); TOTAL PROTEIN 5.4 g/dL (6.3-8.2)
[2019-10-07 17:10] LABS: APPEARANCE,URINE SLIGHTLY-CLOUDY; BILIRUBIN,URINE NEGATIVE (NEGATIVE); COLOR,URINE YELLOW; GLUCOSE, URINE NEGATIVE (NEGATIVE); KETONES,URINE NEGATIVE (NEGATIVE); LEUKOCYTE ESTERASE,URINE NEGATIVE (NEGATIVE); NITRITE,URINE POSITIVE (NEGATIVE); PROTEIN,URINE 30 mg/dL (NEGATIVE); URINE SPECIFIC GRAVITY 1.011; UROBILINOGEN,URINE NEGATIVE mg/dL (<2.0)
[2019-10-07 17:12] LABS: ALCOHOL < 10 mg/dL (NONE DETECTED)
[2019-10-07 17:22] LABS: ABSOLUTE BASOPHILS # (AUTO) 0.1 10^3/uL (0.0-0.2); ABSOLUTE EOSINOPHILS # (AUTO) 0.1 10^3/uL (0.0-0.6); ABSOLUTE LYMPHOCYTES (AUTO) 1.1 10^3/uL (0.5-4.7); ABSOLUTE MONOCYTES (AUTO) 1.1 10^3/uL (0.1-1.4); ABSOLUTE NEUT (AUTO) 6.6 10^3/uL (1.7-8.2); BASOPHILS % (AUTO) 0.8 % (0-2); EOSINOPHILS % (AUTO) 0.8 % (0-6); HEMATOCRIT 24.1 % (36.0-47.0); HEMOGLOBIN 8.2 g/dL (12.0-15.5); LYMPHOCYTES % (AUTO) 12.6 % (13-45); MEAN CORPUSCULAR HEMOGLOBIN 28.6 pg (27.0-33.4); MEAN CORPUSCULAR HGB CONC 33.9 g/dL (32.0-36.0); MEAN CORPUSCULAR VOLUME 84 fl (80-97); MONOCYTES % (AUTO) 11.9 % (3-13); PLATELET COUNT 791 10^3/uL (150-450); RED BLOOD COUNT 2.86 10^6/uL (3.72-5.28); RED CELL DISTRIBUTION WIDTH 18.2 % (11.5-14.0); SEGMENTED NEUTROPHILS % (AUTO) 73.9 % (42-78); TOTAL CELLS COUNTED % (AUTO) 100 %; WHITE BLOOD COUNT 8.9 10^3/uL (4.0-10.5)
[2019-10-07 17:46] LABS: TROPONIN I 0.015 ng/mL
--- NOTE | 2019-10-07 18:12 | RADIOLOGY REPORT (SQ) ---
EXAM DESCRIPTION: CHEST SINGLE VIEW IMAGES COMPLETED DATE/TIME: 10/07/2019 6:02 pm REASON FOR STUDY: short of breath COMPARISON: 07/11/2019 and 05/18/2018. EXAM PARAMETERS: NUMBER OF VIEWS: One view. TECHNIQUE: Single frontal radiographic view of the chest acquired. RADIATION DOSE: NA LIMITATIONS: None. FINDINGS: LUNGS AND PLEURA: Chronic elevation of the right hemidiaphragm. Chronic interstitial cerna ges. No lobar infiltrates. No pleural effusion or pneumothorax. MEDIASTINUM AND HILAR STRUCTURES: Stable fullness in the right paratracheal tissues, presumably overl apping vascular structures. HEART AND VASCULAR STRUCTURES: Stable cardiomegaly. BONES: No acute findings. HARDWARE: None in the chest. OTHER: No other significant finding. IMPRESSION: STABLE CARDIOMEGALY AND CHRONIC CHANGES. NO APPARENT ACUTE FINDINGS. TECHNICAL DOCUMENTATION: JOB ID: [id number] 2010 [employer]- All Rights Reserved Reading location - IP/workstation name: [email or web address]
[2019-10-07] MEDS ORDERED: CEFEPIME 2 GM/D5W RTU 2 GM/50 ML RTUPB IV ONE (18:15)
[2019-10-07] MEDS ORDERED: NORMAL SALINE 500 ML IV ONE (18:20)
[2019-10-07 18:50] LABS: A TYPE INFLUENZA AG NEGATIVE (NEGATIVE); B INFLUENZA AG NEGATIVE (NEGATIVE)
--- NOTE | 2019-10-07 19:01 | RADIOLOGY REPORT (SQ) ---
EXAM DESCRIPTION: CT HEAD WITHOUT IMAGES COMPLETED DATE/TIME: 10/07/2019 6:37 pm REASON FOR STUDY: altered mental status COMPARISON: 05/30/2019. TECHNIQUE: Axial images acquired through the brain without intravenous contrast. Images reviewed wi th bone, brain and subdural windows. Additional sagittal and coronal reconstructions were generated. Images stored on PACS. All CT scanners at this facility use dose modulation, iterative reconstruction, and/or weight based d osing when appropriate to reduce radiation dose to as low as reasonably achievable (ALARA). [facility]: Dose Right [facility]: CareDose [facility]: Dose Right [facility]: Teradose 4D [facility]: Smart [email or web address] RADIATION DOSE: CT Rad equipment meets quality standard of care and radiation dose reduction techniq ues were employed. CTDIvol: 53.2 mGy. DLP: 1070 mGy-cm.mGy. LIMITATIONS: Motion artifact. FINDINGS: VENTRICLES: Prominent. CEREBRUM: No masses. No hemorrhage. No midline shift. Areas of low density in the white matter mos t likely due to chronic micro-vascular ischemic change. No evidence for acute infarction. CEREBELLUM: No masses. No hemorrhage. No alteration of density. No evidence for acute infarction. EXTRAAXIAL SPACES: Age-related involutional change. No fluid collections. No masses. ORBITS AND GLOBE: No intra- or extraconal masses. Normal contour of globe without masses. CALVARIUM: No fracture. PARANASAL SINUSES: No fluid or mucosal thickening. SOFT TISSUES: No mass or hematoma. OTHER: No other significant finding. IMPRESSION: CHRONIC CHANGES OF ATROPHY AND MICROVASCULAR ISCHEMIA. NO ACUTE PROCESS. EVIDENCE OF ACUTE STROKE: NO. TECHNICAL DOCUMENTATION: JOB ID: [id number] Quality ID # [id number]: Final reports with documentation of one or more dose reduction techniques (e.g., Au tomated exposure control, adjustment of the mA and/or kV according to patient size, use of iterative reconstruction technique) 2010 [employer]- All Rights Reserved Reading location - IP/workstation name: [email or web address]
[2019-10-07] MEDS ORDERED: FUROSEMIDE INJ/PF 40 MG/4 ML SDV IV ONE (20:42)
[2019-10-07 21:28] LABS: ARTERIAL BLOOD BASE EXCESS 6.8 mmol/L; ARTERIAL BLOOD HCO3 31.1 mmol/L (20-24); ARTERIAL BLOOD O2 SATURATION 96.2 % (94-98); ARTERIAL BLOOD PCO2 43.3 mmHg (35-45); ARTERIAL BLOOD PH 7.47 (7.35-7.45); ARTERIAL BLOOD PO2 78.3 mmHg (80-100); ARTERIAL BLOOD TOTAL CO2 32.4 mmol/L (21-25)
[2019-10-07 21:30] LABS: ARTERIAL BLOOD FIO2 4L
[2019-10-07] MEDS ORDERED: ACETAMINOPHEN 325 MG TABLET PO PRN (22:08)
[2019-10-07] MEDS ORDERED: IPRATROPIUM/ALBUTEROL 0.5-2.5 MG/3 ML AMPUL NEB PRN (22:08)
[2019-10-07 22:31] LABS: ABSOLUTE RETICS # 0.134 10^6/uL (0.028-0.122); RETICULOCYTE COUNT (AUTO) 4.67 % (0.66-2.85)
[2019-10-07 22:35] LABS: IRON(TIBC) 20.3 ug/dL (37-170)
--- NOTE | 2019-10-07 23:45 | ER Document Report ---
Entered by JENI FAUST SCRIBE 10/07/19 1717 Acting as scribe for:SAMIA WERNER MD ED General - General Chief Complaint: Altered Mental Status Stated Complaint: ALTERED MENTAL STATUS, RESPIRATORY DISTRESS Primary Care Provider: CORAZON CARRION PA-C [Primary Care Provider] - Follow up as needed Information source: Relative - Notes: This 89-year-old female presents to the emergency department via EMS with an altered mental status that began last night per . reports patient having fatigue, foul smelling urine and generalized weakness for the past couple of days. Patient's also mentions that patient has looked swollen in the face for the past couple of days and has had bloody stool for the past month. Patient denies pain. TRAVEL OUTSIDE OF THE [place] IN LAST 30 DAYS: No - Related Data Allergies/Adverse Reactions: diazepam [From Valium] Allergy (Verified 07/11/19 08:14) Past Medical History - General Information source: Patient - Social History Smoking Status: Former Smoker Cigarette use (# per day): No Chew tobacco use (# tins/day): No Family History: CAD, Hypertension Patient has suicidal ideation: No Patient has homicidal ideation: No - Past Medical History Cardiac Medical History: Reports: Hx Congestive Heart Failure, Hx Hypercholesterolemia, Hx Hypertension Pulmonary Medical History: Reports: Hx COPD, Hx Pneumonia Neurological Medical History: Reports: Hx Cerebrovascular Accident Endocrine Medical History: Reports: Hx Diabetes Mellitus Type 1, Hx Diabetes Mellitus Type 2, Hx Hypothyroidism Malignancy Medical History: Reports: Hx Breast Cancer Musculoskeletal Medical History: 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 Psychiatric Medical History: Reports: Hx Dementia Past Surgical History: Reports: Hx Appendectomy, Hx Cholecystectomy, Hx Mastectomy - right - Immunizations Hx Diphtheria, Pertussis, Tetanus Vaccination: Yes Hx Pneumococcal Vaccination: 06/14/12 Review of Systems - Review of Systems Constitutional: See HPI, Weakness EENT: No symptoms reported Cardiovascular: No symptoms reported Respiratory: No symptoms reported Gastrointestinal: No symptoms reported Genitourinary: See HPI, Other - "foul smell" Female Genitourinary: No symptoms reported Musculoskeletal: See HPI. denies: Back pain, Joint pain, Muscle pain, Neck pain Skin: No symptoms reported Hematologic/Lymphatic: No symptoms reported Neurological/Psychological: See HPI, Confusion, Weakness -: Yes All other systems reviewed and negative Physical Exam - Vital signs Vitals: Resp Pulse Ox 19 92 10/07/19 16:13 10/07/19 16:13 - Notes Notes: Physical Exam: General: Patient shared few words on exam, otherwise appeared stated age. HEENT: Normocephalic. Atraumatic. PERRL. Extraocular movements intact. Oropharynx clear. Conjunctiva is pink. Neck: Supple. Non-tender. Respiratory: No respiratory distress. Diminished in both basis. Cardiovascular: Regular rate and rhythm. Abdominal: Normal Inspection. Non-tender. No distension. Normal Bowel Sounds. Rectal: Anal tone diminished. Brown stool which is coagulase negative. Back: No gross abnormalities. Extremities: Moves all four extremities. Upper extremities: Normal inspection. Normal ROM. Lower extremities: Normal inspection. No edema. Normal ROM. Neurological: Fatigued. AAOx4. Limited speech. Skin: Warm. Dry. Pale. Course - Re-evaluation Re-evalutation: 10/07/19 23:36 Patient has been quietly sleeping with sometimes difficult to arouse. However when patient does arouse she has very little comments to make other than that she denies any chest pain or shortness of breath. - Vital Signs Vital signs: Temp Pulse Resp BP Pulse Ox 99.5 F 78 16 174/61 H 100 10/07/19 21:40 10/07/19 21:00 10/07/19 23:01 10/07/19 23:01 10/07/19 23:01 10/07/19 23:36 Patient has had signs of respiratory distress with pulse oximetry ranging from 88-96 requiring nasal cannula O2. Patient is is being treated for COPD and congestive heart failure. - Laboratory Result Diagrams: 10/07/19 16:28 10/07/19 16:28 Laboratory results interpreted by me: 10/07/19 10/07/19 10/07/19 16:28 16:28 16:28 RBC 2.86 L Hgb 8.2 L Hct 24.1 L RDW 18.2 H Plt Count 791 H Lymph % (Auto) 12.6 L Reticulocyte # Retic Count (auto) ABG pH ABG pO2 ABG HCO3 ABG Total CO2 Sodium 134.8 L Creatinine 0.48 L Glucose 155 H Calcium 8.1 L Magnesium 1.3 L Alkaline Phosphatase 135 H NT-Pro-B Natriuret Pep Total Protein 5.4 L Albumin 2.7 L TSH Urine Protein 30 H Urine Nitrite POSITIVE H 10/07/19 10/07/19 10/07/19 16:28 16:28 16:28 RBC Hgb Hct RDW Plt Count Lymph % (Auto) Reticulocyte # 0.134 H Retic Count (auto) 4.67 H ABG pH ABG pO2 ABG HCO3 ABG Total CO2 Sodium Creatinine Glucose Calcium Magnesium Alkaline Phosphatase NT-Pro-B Natriuret Pep 4740 H Total Protein Albumin TSH 5.02 H Urine Protein Urine Nitrite 10/07/19 21:21 RBC Hgb Hct RDW Plt Count Lymph % (Auto) Reticulocyte # Retic Count (auto) ABG pH 7.47 H ABG pO2 78.3 L ABG HCO3 31.1 H ABG Total CO2 32.4 H Sodium Creatinine Glucose Calcium Magnesium Alkaline Phosphatase NT-Pro-B Natriuret Pep Total Protein Albumin TSH Urine Protein Urine Nitrite - Diagnostic Test Radiology reviewed: Image reviewed, Reports reviewed Radiology results interpreted by me: 10/07/19 23:37 CT scan of head shows chronic micro-ischemic changes but no acute stroke. Chest x-ray shows cardiomegaly and diffuse chronic changes and lung markings no change from prior chest x-ray in June 2019. Patient has cardiomegaly noted. - EKG Interpretation by Me Additional EKG results interpreted by me: 10/07/19 23:38 Twelve-lead EKG shows normal sinus rhythm premature apical atrial complexes. Incomplete right bundle branch block. Consider anterior DC. Borderline prolonged QT interval noted. Discharge - Discharge Clinical Impression: COPD with exacerbation, CHF (congestive heart failure), Hypoxia, Acute UTI, Elevated troponin Condition: Fair Disposition: ADMITTED INPATIENT Admitting Provider: Tal (Hospitalist) Unit Admitted: Telemetry Referrals: CORAZON CARRION PA-C [Primary Care Provider] - Follow up as needed I personally performed the services described in the documentation, reviewed and edited the documentation which was dictated to the scribe in my presence, and it accurately records my words and actions.
[2019-10-08] MEDS: HYDRALAZINE HCL INJ/PF 20 MG/1 ML SDV IV PRN ×2 (00:45→17:36)
[2019-10-08] MEDS ORDERED: IRON SUCROSE COMPLEX INJ/PF 100 MG/5 ML SDV IV ONE (03:28)
--- NOTE | 2019-10-08 03:40 | PDOC H&P ---
History of Present Illness Admission Date/PCP: 10/07/19 23:38 CORAZON CARRION PA-C Patient complains of: Shortness of breath History of Present Illness: SANDY DANG is a 89 year old female with a past medical history of diastolic heart failure, hypertension, diabetes, dementia, deafness and COPD. She is brought to the emergency room for evaluation of malodorous urine, fatigue and shortness of breath over the last 48 hours. In the emergency department she is found to have hypoxia, anemia, volume overload by chest x-ray and urinary tract infection. She receives Lasix, Rocephin, supplemental oxygen and referred to the hospitalist for admission. Patient is a very poor historian unable provide additional history. She is asleep but arousable and denies pain. Past Medical History Cardiac Medical History: Reports: Congestive Heart Failure, Hyperlipidema, Hypertension Denies: Coronary Artery Disease, Myocardial Infarction Pulmonary Medical History: Reports: Chronic Obstructive Pulmonary Disease (COPD), Pneumonia Denies: Asthma, Bronchitis, Tuberculosis Neurological Medical History: Denies: Seizures Endocrine Medical History: Reports: Diabetes Mellitus Type 1, Diabetes Mellitus Type 2, Hypothyroidism Malignancy Medical History: Reports: Breast Cancer GI Medical History: Reports: Gastroesophageal Reflux Disease Musculoskeltal Medical History: Reports: Arthritis - Neck Psychiatric Medical History: Reports: Dementia Denies: Depression Hematology: Reports: Anemia, Bleeding Tendencies Past Surgical History Past Surgical History: Reports: Appendectomy, Cholecystectomy, Mastectomy - right, Other - Unknown Denies: Hysterectomy Social History Information Source: Patient Lives with: Spouse/Significant other Smoking Status: Former Smoker Frequency of Alcohol Use: None Hx Recreational Drug Use: No Drugs: None Hx Prescription Drug Abuse: No - Advance Directive Resuscitation Status: Do Not Resuscitate Family History Family History: CAD, Hypertension Parental Family History Reviewed: Yes Children Family History Reviewed: Yes Sibling(s) Family History Reviewed.: Yes Medication/Allergy Home Medications: Anastrozole [Arimidex 1 mg Tablet] 1 mg PO DAILY 07/11/19 Aspirin [Ecotrin 81 mg EC Tablet] 81 mg PO DAILY 07/11/19 Atorvastatin Calcium [Lipitor 20 mg Tablet] 20 mg PO QHS 07/11/19 Escitalopram Oxalate [Lexapro] 20 mg PO DAILY 07/11/19 Levothyroxine Sodium [Synthroid 0.15 mg Tablet] 0.15 mg PO Q6AM 07/11/19 Losartan Potassium [Cozaar] 100 mg PO DAILY 07/11/19 Metformin HCl [Glucophage 500 mg Tablet] 500 mg PO BID 07/11/19 Ropinirole HCl [Requip 2 mg Tablet] 2 mg PO QHS 07/11/19 Acetaminophen [Tylenol 325 mg Tablet] 650 mg PO Q4HP PRN tablet 07/17/19 Ferrous Sulfate [Feosol 325 mg Tablet] 325 mg PO DAILY tablet 07/17/19 Furosemide [Lasix 40 mg Tablet] 40 mg PO DAILY tablet 07/17/19 Pantoprazole Sodium [Protonix [address] Tablet] 40 mg PO BID@0600,1700 tablet.dr 07/17/19 Spironolactone [Aldactone 25 mg Tablet] 25 mg PO DAILY tablet 07/17/19 Allergies/Adverse Reactions: diazepam [From Valium] Allergy (Verified 07/11/19 08:14) Review of Systems ROS unobtainable: Due to mental status Physical Exam Vital Signs: Temp Pulse Resp BP Pulse Ox 98.9 F 68 18 142/67 H 100 10/08/19 01:05 10/08/19 02:00 10/08/19 01:05 10/08/19 01:05 10/08/19 01:05 Intake & Output 10/06/19 10/07/19 10/08/19 11:59 11:59 11:59 Intake Total 550 Output Total 750 Balance -200 Weight 58.9 kg General appearance: PRESENT: mild distress, thin, well-developed, other - Chronically ill-appearing with cachexia and temporal wasting. ABSENT: disheveled Head exam: PRESENT: atraumatic, normocephalic Eye exam: PRESENT: conjunctiva pink, EOMI, PERRLA. ABSENT: scleral icterus Ear exam: PRESENT: normal external ear exam Mouth exam: PRESENT: moist, tongue midline Neck exam: ABSENT: carotid bruit, JVD, lymphadenopathy, thyromegaly Respiratory exam: PRESENT: crackles, decreased breath sounds, prolonged expirato ry phas, symmetrical, tachypnea. ABSENT: retraction Cardiovascular exam: PRESENT: RRR. ABSENT: diastolic murmur, rubs, systolic murmur Pulses: PRESENT: normal dorsalis pedis pul Vascular exam: PRESENT: normal capillary refill GI/Abdominal exam: PRESENT: normal bowel sounds, soft. ABSENT: distended, guarding, mass, organolmegaly, rebound, tenderness Rectal exam: PRESENT: deferred Extremities exam: PRESENT: full ROM. ABSENT: calf tenderness, clubbing, pedal edema Neurological exam: PRESENT: altered, oriented to person, CN II-XII grossly intact Psychiatric exam: PRESENT: appropriate affect, normal mood. ABSENT: homicidal ideation, suicidal ideation Skin exam: PRESENT: dry, intact, warm. ABSENT: cyanosis, rash Results Laboratory Results: 10/07/19 16:28 10/07/19 16:28 10/07/19 10/07/19 10/07/19 16:28 16:28 16:28 WBC 8.9 RBC 2.86 L Hgb 8.2 L Hct 24.1 L MCV 84 MCH 28.6 MCHC 33.9 RDW 18.2 H Plt Count 791 H Seg Neutrophils % 73.9 Retic Count (auto) Carbonic Acid HCO3/H2CO3 Ratio ABG pH ABG pCO2 ABG pO2 ABG HCO3 ABG O2 Saturation ABG Base Excess FiO2 Sodium 134.8 L Potassium 3.8 Chloride 99 Carbon Dioxide 30 Anion Gap 6 BUN 11 Creatinine 0.48 L Est GFR ( Amer) > 60 Glucose 155 H Lactic Acid Calcium 8.1 L Magnesium 1.3 L Iron TIBC % Saturation Ferritin Total Bilirubin 0.3 AST 33 Alkaline Phosphatase 135 H Total Protein 5.4 L Albumin 2.7 L Lipase Vitamin B12 Folate TSH Urine Color YELLOW Urine Appearance SLIGHTLY-CLOUDY Urine pH 6.0 Ur Specific [place] 1.011 Urine Protein 30 H Urine Glucose (UA) NEGATIVE Urine Ketones NEGATIVE Urine Blood NEGATIVE Urine Nitrite POSITIVE H Ur Leukocyte Esterase NEGATIVE Urine WBC (Auto) 9 Urine RBC (Auto) 0 10/07/19 10/07/19 10/07/19 16:28 16:28 16:28 WBC RBC Hgb Hct MCV MCH MCHC RDW Plt Count Seg Neutrophils % Retic Count (auto) Carbonic Acid HCO3/H2CO3 Ratio ABG pH ABG pCO2 ABG pO2 ABG HCO3 ABG O2 Saturation ABG Base Excess FiO2 Sodium Potassium Chloride Carbon Dioxide Anion Gap BUN Creatinine Est GFR ( Amer) Glucose Lactic Acid 1.5 Calcium Magnesium Iron TIBC % Saturation Ferritin Total Bilirubin AST Alkaline Phosphatase Total Protein Albumin Lipase 102.7 Vitamin B12 Folate TSH 5.02 H Urine Color Urine Appearance Urine pH Ur Specific [place] Urine Protein Urine Glucose (UA) Urine Ketones Urine Blood Urine Nitrite Ur Leukocyte Esterase Urine WBC (Auto) Urine RBC (Auto) 10/07/19 10/07/19 10/07/19 16:28 16:28 16:28 WBC RBC Hgb Hct MCV MCH MCHC RDW Plt Count Seg Neutrophils % Retic Count (auto) 4.67 H Carbonic Acid HCO3/H2CO3 Ratio ABG pH ABG pCO2 ABG pO2 ABG HCO3 ABG O2 Saturation ABG Base Excess FiO2 Sodium Potassium Chloride Carbon Dioxide Anion Gap BUN Creatinine Est GFR ( Amer) Glucose Lactic Acid Calcium Magnesium Iron 20.3 L TIBC 266 % Saturation 8 Ferritin 51.30 Total Bilirubin AST Alkaline Phosphatase Total Protein Albumin Lipase Vitamin B12 > 1000.0 H Folate 11.00 TSH Cancelled Urine Color Urine Appearance Urine pH Ur Specific [place] Urine Protein Urine Glucose (UA) Urine Ketones Urine Blood Urine Nitrite Ur Leukocyte Esterase Urine WBC (Auto) Urine RBC (Auto) 10/07/19 21:21 WBC RBC Hgb Hct MCV MCH MCHC RDW Plt Count Seg Neutrophils % Retic Count (auto) Carbonic Acid 1.30 HCO3/H2CO3 Ratio 23:1 ABG pH 7.47 H ABG pCO2 43.3 ABG pO2 78.3 L ABG HCO3 31.1 H ABG O2 Saturation 96.2 ABG Base Excess 6.8 FiO2 4L Sodium Potassium Chloride Carbon Dioxide Anion Gap BUN Creatinine Est GFR ( Amer) Glucose Lactic Acid Calcium Magnesium Iron TIBC % Saturation Ferritin Total Bilirubin AST Alkaline Phosphatase Total Protein Albumin Lipase Vitamin B12 Folate TSH Urine Color Urine Appearance Urine pH Ur Specific [place] Urine Protein Urine Glucose (UA) Urine Ketones Urine Blood Urine Nitrite Ur Leukocyte Esterase Urine WBC (Auto) Urine RBC (Auto) 10/07/19 10/07/19 16:28 22:25 Troponin I 0.015 0.019 NT-Pro-B Natriuret Pep 4740 H Impressions: Chest X-Ray 10/07/19 17:20 IMPRESSION: STABLE CARDIOMEGALY AND CHRONIC CHANGES. NO APPARENT ACUTE FINDINGS. Head CT 10/07/19 18:16 IMPRESSION: CHRONIC CHANGES OF ATROPHY AND MICROVASCULAR ISCHEMIA. NO ACUTE PROCESS. EVIDENCE OF ACUTE STROKE: NO. Assessment and Plan - Diagnosis (1) CHF (congestive heart failure) Qualifiers: Is this a current diagnosis for this admission?: Yes Plan: Diastolic, CPAP, optimize volume and pressure. Follow serial cardiac enzymes. (2) COPD with exacerbation Is this a current diagnosis for this admission?: Yes Plan: Supplemental oxygen, albuterol, Atrovent, incentive spirometry (3) UTI (urinary tract infection) Qualifiers: Is this a current diagnosis for this admission?: Yes Plan: Trial empiric antibiotic, follow-up blood and urine culture (4) Acute bronchitis Is this a current diagnosis for this admission?: Yes Plan: With atelectasis and poor respiratory effort, trial empiric antibiotics, Flonase, albuterol, Atrovent, incentive spirometry - Time Time Spent with patient: 25-34 minutes - Inpatient Certification Medical Necessity: Need Close Monitoring Due to Risk of Patient Decompensation
[2019-10-08] MEDS: IPRATROPIUM/ALBUTEROL 0.5-2.5 MG/3 ML AMPUL NEB SCH ×2 (03:51→09:38)
[2019-10-08] MEDS ORDERED: CEFEPIME 2 GM/D5W RTU 2 GM/50 ML RTUPB IV ONE (05:42)
[2019-10-08] MEDS: HEPARIN SOD (PORCINE) 5,000 UNIT/ML 1 ML VIAL SUBCUT SCH ×3 (05:51→21:33)
[2019-10-08] MEDS ORDERED: CEFEPIME 2 GM/D5W RTU 2 GM/50 ML RTUPB IV SCH (06:00)
[2019-10-08 06:14] LABS: ABSOLUTE EOSINOPHILS # (AUTO) 0.1 10^3/uL (0.0-0.6); ABSOLUTE LYMPHOCYTES (AUTO) 1.1 10^3/uL (0.5-4.7); ABSOLUTE NEUT (AUTO) 5.6 10^3/uL (1.7-8.2); BASOPHILS % (AUTO) 0.6 % (0-2); EOSINOPHILS % (AUTO) 1.1 % (0-6); HEMATOCRIT 22.3 % (36.0-47.0); LYMPHOCYTES % (AUTO) 13.9 % (13-45); MEAN CORPUSCULAR HEMOGLOBIN 28.1 pg (27.0-33.4); MEAN CORPUSCULAR HGB CONC 34.1 g/dL (32.0-36.0); MEAN CORPUSCULAR VOLUME 82 fl (80-97); MONOCYTES % (AUTO) 12.7 % (3-13); PLATELET COUNT 684 10^3/uL (150-450); RED BLOOD COUNT 2.71 10^6/uL (3.72-5.28); RED CELL DISTRIBUTION WIDTH 17.9 % (11.5-14.0); SEGMENTED NEUTROPHILS % (AUTO) 71.7 % (42-78); TOTAL CELLS COUNTED % (AUTO) 100 %; WHITE BLOOD COUNT 7.8 10^3/uL (4.0-10.5)
[2019-10-08 06:20] LABS: HEMOGLOBIN 7.6 g/dL (12.0-15.5)
[2019-10-08 06:28] LABS: BLOOD UREA NITROGEN 11 mg/dL (7-20); CALCIUM 7.9 mg/dL (8.4-10.2); CHLORIDE 97 mmol/L (98-107); GLUCOSE 101 mg/dL (75-110)
[2019-10-08 06:41] LABS: CARBON DIOXIDE 33 mmol/L (22-30)
[2019-10-08 06:43] LABS: ANION GAP 5 (5-19)
[2019-10-08] MEDS: FLUTICASONE NASAL SPRAY 50 MCG/SPRY 120 SPRAY/16 GM NASL SCH ×2 (09:45→21:34)
--- NOTE | 2019-10-08 11:07 | EKG REPORT ---
SEVERITY:- ABNORMAL ECG - SINUS RHYTHM ATRIAL PREMATURE COMPLEX INCOMPLETE RIGHT BUNDLE BRANCH BLOCK CONSIDER ANTERIOR INFARCT BORDERLINE PROLONGED QT INTERVAL : Confirmed by: Roel Cordero 08-Oct-2019 11:06:35
--- NOTE | 2019-10-08 11:25 | PDOC PROGRESS REPORT ---
Subjective Progress Note for:: 10/08/19 Subjective:: Patient denies any shortness of breath today. Denies any chest pain. States that she feels fine. Reason For Visit: COPD EXACERBATION BRONCHITIS Physical Exam Vital Signs: Temp Pulse Resp BP Pulse Ox 97.5 F 74 18 155/53 H 100 10/08/19 07:00 10/08/19 09:38 10/08/19 09:38 10/08/19 07:00 10/08/19 09:38 Intake & Output 10/07/19 10/08/19 10/09/19 06:59 06:59 06:59 Intake Total 1008 Output Total 1475 Balance -467 Weight 58.9 kg General appearance: PRESENT: no acute distress, cooperative, hard of hearing, thin Respiratory exam: PRESENT: crackles, unlabored. ABSENT: tachypnea, wheezes Cardiovascular exam: PRESENT: RRR, +S1, +S2, systolic murmur GI/Abdominal exam: PRESENT: soft. ABSENT: rebound, rigid, tenderness Neurological exam: PRESENT: alert, awake. ABSENT: altered, aphasic Psychiatric exam: ABSENT: agitated, anxious Focused psych exam: ABSENT: pressured speech Skin exam: ABSENT: jaundice Results Laboratory Results: 10/08/19 05:44 10/08/19 05:44 10/07/19 10/07/19 10/07/19 16:28 16:28 16:28 WBC 8.9 RBC 2.86 L Hgb 8.2 L Hct 24.1 L MCV 84 MCH 28.6 MCHC 33.9 RDW 18.2 H Plt Count 791 H Seg Neutrophils % 73.9 Retic Count (auto) Carbonic Acid HCO3/H2CO3 Ratio ABG pH ABG pCO2 ABG pO2 ABG HCO3 ABG O2 Saturation ABG Base Excess FiO2 Sodium 134.8 L Potassium 3.8 Chloride 99 Carbon Dioxide 30 Anion Gap 6 BUN 11 Creatinine 0.48 L Est GFR ( Amer) > 60 Glucose 155 H Lactic Acid Calcium 8.1 L Magnesium 1.3 L Iron TIBC % Saturation Ferritin Total Bilirubin 0.3 AST 33 Alkaline Phosphatase 135 H Total Protein 5.4 L Albumin 2.7 L Lipase Vitamin B12 Folate TSH Urine Color YELLOW Urine Appearance SLIGHTLY-CLOUDY Urine pH 6.0 Ur Specific [place] 1.011 Urine Protein 30 H Urine Glucose (UA) NEGATIVE Urine Ketones NEGATIVE Urine Blood NEGATIVE Urine Nitrite POSITIVE H Ur Leukocyte Esterase NEGATIVE Urine WBC (Auto) 9 Urine RBC (Auto) 0 10/07/19 10/07/19 10/07/19 16:28 16:28 16:28 WBC RBC Hgb Hct MCV MCH MCHC RDW Plt Count Seg Neutrophils % Retic Count (auto) Carbonic Acid HCO3/H2CO3 Ratio ABG pH ABG pCO2 ABG pO2 ABG HCO3 ABG O2 Saturation ABG Base Excess FiO2 Sodium Potassium Chloride Carbon Dioxide Anion Gap BUN Creatinine Est GFR ( Amer) Glucose Lactic Acid 1.5 Calcium Magnesium Iron TIBC % Saturation Ferritin Total Bilirubin AST Alkaline Phosphatase Total Protein Albumin Lipase 102.7 Vitamin B12 Folate TSH 5.02 H Urine Color Urine Appearance Urine pH Ur Specific [place] Urine Protein Urine Glucose (UA) Urine Ketones Urine Blood Urine Nitrite Ur Leukocyte Esterase Urine WBC (Auto) Urine RBC (Auto) 10/07/19 10/07/19 10/07/19 16:28 16:28 16:28 WBC RBC Hgb Hct MCV MCH MCHC RDW Plt Count Seg Neutrophils % Retic Count (auto) 4.67 H Carbonic Acid HCO3/H2CO3 Ratio ABG pH ABG pCO2 ABG pO2 ABG HCO3 ABG O2 Saturation ABG Base Excess FiO2 Sodium Potassium Chloride Carbon Dioxide Anion Gap BUN Creatinine Est GFR ( Amer) Glucose Lactic Acid Calcium Magnesium Iron 20.3 L TIBC 266 % Saturation 8 Ferritin 51.30 Total Bilirubin AST Alkaline Phosphatase Total Protein Albumin Lipase Vitamin B12 > 1000.0 H Folate 11.00 TSH Cancelled Urine Color Urine Appearance Urine pH Ur Specific [place] Urine Protein Urine Glucose (UA) Urine Ketones Urine Blood Urine Nitrite Ur Leukocyte Esterase Urine WBC (Auto) Urine RBC (Auto) 10/07/19 10/08/19 10/08/19 21:21 05:44 05:44 WBC 7.8 RBC 2.71 L Hgb 7.6 L Hct 22.3 L MCV 82 MCH 28.1 MCHC 34.1 RDW 17.9 H Plt Count 684 H Seg Neutrophils % 71.7 Retic Count (auto) Carbonic Acid 1.30 HCO3/H2CO3 Ratio 23:1 ABG pH 7.47 H ABG pCO2 43.3 ABG pO2 78.3 L ABG HCO3 31.1 H ABG O2 Saturation 96.2 ABG Base Excess 6.8 FiO2 4L Sodium 135.2 L Potassium 4.0 Chloride 97 L Carbon Dioxide 33 H Anion Gap 5 BUN 11 Creatinine 0.53 Est GFR ( Amer) > 60 Glucose 101 Lactic Acid Calcium 7.9 L Magnesium Iron TIBC % Saturation Ferritin Total Bilirubin AST Alkaline Phosphatase Total Protein Albumin Lipase Vitamin B12 Folate TSH Urine Color Urine Appearance Urine pH Ur Specific [place] Urine Protein Urine Glucose (UA) Urine Ketones Urine Blood Urine Nitrite Ur Leukocyte Esterase Urine WBC (Auto) Urine RBC (Auto) 10/07/19 10/07/19 10/08/19 16:28 22:25 05:44 Troponin I 0.015 0.019 0.024 NT-Pro-B Natriuret Pep 4740 H Impressions: Chest X-Ray 10/07/19 17:20 IMPRESSION: STABLE CARDIOMEGALY AND CHRONIC CHANGES. NO APPARENT ACUTE FINDINGS. Head CT 10/07/19 18:16 IMPRESSION: CHRONIC CHANGES OF ATROPHY AND MICROVASCULAR ISCHEMIA. NO ACUTE PROCESS. EVIDENCE OF ACUTE STROKE: NO. Assessment and Plan - Diagnosis (1) Acute on chronic diastolic CHF (congestive heart failure) Is this a current diagnosis for this admission?: Yes Plan: Likely secondary to valvular heart disease and uncontrolled hypertension. Uncertain if patient has been taking her blood pressure medications and Lasix. We will optimize BP, IV diuresis yesterday and today and switch back to oral tomorrow. (2) Acute respiratory failure with hypoxia Is this a current diagnosis for this admission?: Yes Plan: Quite hypoxic when she came in similar to prior presentation 2 months ago. Potentially from CHF. Does have history of COPD and some chronic interstitial changes in her lungs. Will opt for optimal diuresis blood pressure control and will start to wean oxygen as tolerated. Suspicion of admission and COVID-19 test pending. However pretest probability is likely low. (3) Acute UTI Is this a current diagnosis for this admission?: Yes Plan: Cefepime day 2 of 3. (4) Iron deficiency anemia Qualifiers: Iron deficiency anemia type: unspecified iron deficiency Qualified Code(s): D50.9 - Iron deficiency anemia, unspecified Is this a current diagnosis for this admission?: Yes Plan: According to chart, patient's reported some bloody stools for the past few days. Will manage chronic lower GI bleed conservatively with monitoring of CBC. Patient's baseline hemoglobin seems to be around 8. Will give iron supplementation. Received IV iron on admission. Patient receives outpatient transfusions as well. (5) COPD with exacerbation Is this a current diagnosis for this admission?: Yes Plan: Lungs without wheezing today. Potentially mild exacerbation on admission. Managed with albuterol inhalers, incentive spirometer and oxygen supplementation as needed. (6) Valvular heart disease Is this a current diagnosis for this admission?: Yes Plan: Characterized by moderate aortic stenosis with ROSALBA of 1.2 cm and moderate mitral regurgitation both of which are significantly contributing to patient's diastolic heart failure. Continue gentle diuresis and afterload reduction. (7) Dementia Qualifiers: Is this a current diagnosis for this admission?: Yes Plan: Patient reported to have altered mental status on admission but on examination with patient today patient seems to be at her baseline from prior visit. Possibly from some hypoxic encephalopathy from presentation which is now resolved. Supportive care for dementia. - Time Time Spent with patient: Less than 15 minutes
[2019-10-08] MEDS ORDERED: LOSARTAN POTASSIUM 50 MG TABLET PO ONE (11:30)
[2019-10-08] MEDS ORDERED: ALBUTEROL SULFATE HFA (90 MCG/PUFF) 8 GM MDI IH SCH (12:00)
[2019-10-08] MEDS: SPIRONOLACTONE 25 MG TABLET PO SCH (12:15)
[2019-10-08] MEDS: ESCITALOPRAM OXALATE 10 MG TABLET PO SCH (12:15)
[2019-10-08] MEDS: ALBUTEROL SULFATE HFA (90 MCG/PUFF) 200 PUFF/8.5 GM MDI IH SCH ×3 (12:16→23:35)
[2019-10-08] MEDS ORDERED: FUROSEMIDE INJ/PF 40 MG/4 ML SDV IV ONE ×3 (14:00→15:00)
[2019-10-08] MEDS: METFORMIN HCL 500 MG TABLET PO SCH (17:28)
[2019-10-08] MEDS: PANTOPRAZOLE SODIUM 40 MG TABLET.DR PO SCH (17:29)
[2019-10-08] MEDS: CEFEPIME HCL 2 GM in DEXTROSE 5%-WATER 50 ML IV SCH (17:36)
[2019-10-08] MEDS: NIFEDIPINE 30 MG TAB.ER.24 PO SCH (18:10)
[2019-10-08] MEDS: CARVEDILOL 12.5 MG TABLET PO SCH (21:32)
[2019-10-08] MEDS: HYDRALAZINE HCL 50 MG TABLET PO SCH (21:32)
[2019-10-08] MEDS: ROPINIROLE HCL 2 MG TABLET PO SCH (21:32)
[2019-10-08] MEDS: ATORVASTATIN CALCIUM 20 MG TABLET PO SCH (21:33)
[2019-10-08] MEDS ORDERED: DEXTROSE 40% GEL 15 GM TUBE X 2 PO PRN (22:00)
[2019-10-08] MEDS ORDERED: ROPINIROLE HCL 1 MG TABLET PO SCH (22:00)
[2019-10-08] MEDS ORDERED: DEXTROSE 50%-WATER SYRINGE 12.5 GM/25 ML DOSE IV PRN (22:00)
[2019-10-08] MEDS ORDERED: DEXTROSE 40% GEL 15 GM TUBE PO PRN (22:00)
[2019-10-08] MEDS ORDERED: GLUCAGON,HUMAN RECOMB 1 MG INJ IM PRN (22:00)
[2019-10-08] MEDS ORDERED: ROPINIROLE HCL 2 MG TABLET PO SCH (22:00)
[2019-10-08] MEDS ORDERED: DEXTROSE 50%-WATER SYRINGE 25 GM/50 ML DOSE IV PRN (22:00)
[2019-10-09] MEDS ORDERED: VANCOMYCIN HCL INJ 1000 MG VIAL ONE (01:42)
[2019-10-09] MEDS ORDERED: VANCOMYCIN HCL INJ 1000 MG VIAL IV PRN (02:27)
[2019-10-09] MEDS ORDERED: VANCOMYCIN HCL 1,000 MG in DEXTROSE 5%-WATER 250 ML IV ONE (02:30)
[2019-10-09] MEDS ORDERED: NORMAL SALINE 500 ML IV ONE (02:30)
[2019-10-09] MEDS: CEFEPIME HCL 2 GM in DEXTROSE 5%-WATER 50 ML IV SCH ×2 (05:29→17:07)
[2019-10-09] MEDS: HEPARIN SOD (PORCINE) 5,000 UNIT/ML 1 ML VIAL SUBCUT SCH ×3 (05:29→22:08)
[2019-10-09] MEDS: PANTOPRAZOLE SODIUM 40 MG TABLET.DR PO SCH ×2 (05:29→17:08)
[2019-10-09] MEDS: LEVOTHYROXINE SODIUM 0.15 MG TABLET PO SCH (05:29)
[2019-10-09] MEDS: ALBUTEROL SULFATE HFA (90 MCG/PUFF) 200 PUFF/8.5 GM MDI IH SCH ×2 (05:30→12:31)
[2019-10-09 05:42] LABS: HEMATOCRIT 25.3 % (36.0-47.0); HEMOGLOBIN 8.8 g/dL (12.0-15.5); MEAN CORPUSCULAR HEMOGLOBIN 28.9 pg (27.0-33.4); MEAN CORPUSCULAR HGB CONC 34.9 g/dL (32.0-36.0); MEAN CORPUSCULAR VOLUME 83 fl (80-97); PLATELET COUNT 856 10^3/uL (150-450); RED BLOOD COUNT 3.06 10^6/uL (3.72-5.28); RED CELL DISTRIBUTION WIDTH 17.7 % (11.5-14.0); WHITE BLOOD COUNT 10.8 10^3/uL (4.0-10.5)
[2019-10-09 05:59] LABS: ALBUMIN 2.5 g/dL (3.5-5.0); ALKALINE PHOSPHATASE 124 U/L (38-126); ANION GAP 6 (5-19); ASPARTATE AMINO TRANSFERASE 33 U/L (14-36); BILIRUBIN,TOTAL 0.5 mg/dL (0.2-1.3); BLOOD UREA NITROGEN 15 mg/dL (7-20); CALCIUM 7.8 mg/dL (8.4-10.2); CARBON DIOXIDE 32 mmol/L (22-30); CHLORIDE 94 mmol/L (98-107); GLUCOSE 162 mg/dL (75-110); POTASSIUM 3.9 mmol/L (3.6-5.0); TOTAL PROTEIN 5.3 g/dL (6.3-8.2)
[2019-10-09] MEDS: HYDRALAZINE HCL 50 MG TABLET PO SCH (06:45)
[2019-10-09] MEDS: METFORMIN HCL 500 MG TABLET PO SCH ×2 (07:40→15:07)
[2019-10-09] MEDS ORDERED: MAGNESIUM OXIDE 400 MG TABLET PO ONE (09:30)
[2019-10-09] MEDS: ROPINIROLE HCL 2 MG TABLET PO SCH ×2 (10:00→22:07)
[2019-10-09] MEDS: FLUTICASONE NASAL SPRAY 50 MCG/SPRY 120 SPRAY/16 GM NASL SCH ×2 (10:00→22:07)
[2019-10-09] MEDS: ASPIRIN 81 MG TABLET, ENT COATED PO SCH (10:00)
[2019-10-09] MEDS: ACETAZOLAMIDE 250 MG TABLET PO SCH (10:00)
[2019-10-09] MEDS: ANASTROZOLE 1 MG TABLET PO SCH (10:00)
[2019-10-09] MEDS: MAGNESIUM SULFATE/D5W 1 GM/100 ML RTUPB IV SCH ×2 (10:00→12:00)
[2019-10-09] MEDS ORDERED: CARVEDILOL 12.5 MG TABLET PO SCH (10:00)
[2019-10-09] MEDS: FERROUS SULFATE 325 MG TABLET PO SCH (10:00)
[2019-10-09] MEDS: ESCITALOPRAM OXALATE 10 MG TABLET PO SCH (10:00)
[2019-10-09] MEDS: LOSARTAN POTASSIUM 50 MG TABLET PO SCH (11:05)
[2019-10-09] MEDS: CARVEDILOL 12.5 MG TABLET PO SCH ×2 (11:05→22:04)
[2019-10-09] MEDS: SPIRONOLACTONE 25 MG TABLET PO SCH (11:05)
[2019-10-09] MEDS: FUROSEMIDE 40 MG TABLET PO SCH (11:37)
--- NOTE | 2019-10-09 12:46 | PDOC PROGRESS REPORT ---
Subjective Progress Note for:: 10/09/19 Subjective:: Patient denies any shortness of breath today. Denies any chest pain. Denies fever or chills. Reason For Visit: ACUTE CHF,ACUTE EXACERBATION COPD WITH HYPOXIA Physical Exam Vital Signs: Temp Pulse Resp BP Pulse Ox 98.4 F 75 20 100/38 L 91 L 10/09/19 03:32 10/09/19 07:00 10/09/19 03:32 10/09/19 03:32 10/09/19 03:32 Intake & Output 10/08/19 10/09/19 10/10/19 06:59 06:59 06:59 Intake Total 1008 1800 650 Output Total 1475 Balance -467 1800 650 Weight 58.9 kg 56.4 kg General appearance: PRESENT: no acute distress, cooperative, hard of hearing, thin Neck exam: ABSENT: JVD Respiratory exam: PRESENT: symmetrical, unlabored. ABSENT: tachypnea, wheezes Cardiovascular exam: PRESENT: +S1, +S2, systolic murmur. ABSENT: tachycardia GI/Abdominal exam: PRESENT: soft. ABSENT: rebound, rigid, tenderness Neurological exam: PRESENT: alert, awake, oriented to person. ABSENT: oriented to place, oriented to time Results Laboratory Results: 10/09/19 05:20 10/09/19 05:20 10/09/19 10/09/19 05:20 05:20 WBC 10.8 H RBC 3.06 L Hgb 8.8 L Hct 25.3 L MCV 83 MCH 28.9 MCHC 34.9 RDW 17.7 H Plt Count 856 H Sodium 132.0 L Potassium 3.9 Chloride 94 L Carbon Dioxide 32 H Anion Gap 6 BUN 15 Creatinine 0.61 Est GFR ( Amer) > 60 Glucose 162 H Calcium 7.8 L Magnesium 1.3 L Total Bilirubin 0.5 AST 33 Alkaline Phosphatase 124 Total Protein 5.3 L Albumin 2.5 L 10/07/19 18:00 Blood Blood Culture (PCR) - Final 10/07/19 18:30 Throat Throat Culture - Final NORMAL OLMAN 10/07/19 10/07/19 10/08/19 16:28 22:25 05:44 Troponin I 0.015 0.019 0.024 NT-Pro-B Natriuret Pep 4740 H Impressions: Chest X-Ray 04/25/20 17:20 IMPRESSION: STABLE CARDIOMEGALY AND CHRONIC CHANGES. NO APPARENT ACUTE FINDINGS. Head CT 10/07/19 18:16 IMPRESSION: CHRONIC CHANGES OF ATROPHY AND MICROVASCULAR ISCHEMIA. NO ACUTE PROCESS. EVIDENCE OF ACUTE STROKE: NO. Assessment and Plan - Diagnosis (1) Acute on chronic diastolic CHF (congestive heart failure) Is this a current diagnosis for this admission?: Yes Plan: Likely secondary to valvular heart disease and uncontrolled hypertension. Uncertain if patient has been taking her blood pressure medications and Lasix. Goal is to optimize BP and gentle diuresis. Switched back to oral Lasix today. Will give Diamox today to help with metabolic alkalosis-can DC tomorrow if alkalosis improves. (2) Acute respiratory failure with hypoxia Is this a current diagnosis for this admission?: Yes Plan: Quite hypoxic when she came in similar to prior presentation 2 months ago. Potentially from CHF. Does have history of COPD and some chronic interstitial changes in her lungs. Will opt for optimal diuresis, blood pressure control. Patient can be discharged once successfully weaned off oxygen. Still on 3 L today. COVID-19 test was negative. Pretest probability was also low. (3) Acute UTI Is this a current diagnosis for this admission?: Yes Plan: Cefepime day 3 of 4. (4) Iron deficiency anemia Qualifiers: Iron deficiency anemia type: unspecified iron deficiency Qualified Code(s): D50.9 - Iron deficiency anemia, unspecified Is this a current diagnosis for this admission?: Yes Plan: According to chart, patient's reported some bloody stools for the past few days. Will manage chronic lower GI bleed conservatively with monitoring of CBC. Patient's baseline hemoglobin seems to be around 8. Will give iron supplementation. Received IV iron on admission. Patient receives outpatient transfusions as well. (5) COPD with exacerbation Is this a current diagnosis for this admission?: Yes Plan: Potentially mild exacerbation on admission but no active wheezing currently. Managed with albuterol nebs, incentive spirometer and oxygen supplementation as needed. (6) Valvular heart disease Is this a current diagnosis for this admission?: Yes Plan: Characterized by moderate aortic stenosis with ROSALBA of 1.2 cm and moderate mitral regurgitation both of which are significantly contributing to patient's diastolic heart failure. Continue gentle diuresis and afterload reduction. Outpatient follow-up with Dr. Ferrer. (7) Dementia Qualifiers: Is this a current diagnosis for this admission?: Yes Plan: Patient reported to have altered mental status on admission but on examination with patient today patient seems to be at her baseline from prior visit. Possibly from some hypoxic encephalopathy on admission which is now resolved. Supportive care for dementia. - Time Time Spent with patient: Less than 15 minutes
[2019-10-09] MEDS: ALBUTEROL SULFATE 0.083% NEB 2.5 MG/3 ML AMPUL NEB SCH ×2 (13:25→20:14)
[2019-10-09] MEDS: NIFEDIPINE 30 MG TAB.ER.24 PO SCH (17:14)
[2019-10-09] MEDS ORDERED: VANCOMYCIN HCL 1,250 MG in DEXTROSE 5%-WATER 250 ML IV SCH (22:00)
[2019-10-09] MEDS: ATORVASTATIN CALCIUM 20 MG TABLET PO SCH (22:07)
[2019-10-10 05:46] LABS: HEMATOCRIT 25.2 % (36.0-47.0); HEMOGLOBIN 8.7 g/dL (12.0-15.5); MEAN CORPUSCULAR HEMOGLOBIN 28.5 pg (27.0-33.4); MEAN CORPUSCULAR HGB CONC 34.5 g/dL (32.0-36.0); MEAN CORPUSCULAR VOLUME 83 fl (80-97); PLATELET COUNT 821 10^3/uL (150-450); RED BLOOD COUNT 3.05 10^6/uL (3.72-5.28); RED CELL DISTRIBUTION WIDTH 17.9 % (11.5-14.0); WHITE BLOOD COUNT 9.3 10^3/uL (4.0-10.5)
[2019-10-10 06:04] LABS: ALBUMIN 2.7 g/dL (3.5-5.0); ALKALINE PHOSPHATASE 126 U/L (38-126); ANION GAP 6 (5-19); ASPARTATE AMINO TRANSFERASE 47 U/L (14-36); BILIRUBIN,TOTAL 0.5 mg/dL (0.2-1.3); BLOOD UREA NITROGEN 15 mg/dL (7-20); CALCIUM 8.5 mg/dL (8.4-10.2); CARBON DIOXIDE 33 mmol/L (22-30); CHLORIDE 93 mmol/L (98-107); GLUCOSE 114 mg/dL (75-110); POTASSIUM 4.3 mmol/L (3.6-5.0); TOTAL PROTEIN 5.5 g/dL (6.3-8.2)
[2019-10-10] MEDS: HEPARIN SOD (PORCINE) 5,000 UNIT/ML 1 ML VIAL SUBCUT SCH ×3 (06:19→21:22)
[2019-10-10] MEDS: PANTOPRAZOLE SODIUM 40 MG TABLET.DR PO SCH ×2 (06:20→16:34)
[2019-10-10] MEDS: LEVOTHYROXINE SODIUM 0.15 MG TABLET PO SCH (06:20)
[2019-10-10] MEDS: CEFEPIME HCL 2 GM in DEXTROSE 5%-WATER 50 ML IV SCH ×2 (06:26→17:05)
[2019-10-10] MEDS: ALBUTEROL SULFATE 0.083% NEB 2.5 MG/3 ML AMPUL NEB SCH ×3 (07:47→19:34)
[2019-10-10] MEDS: METFORMIN HCL 500 MG TABLET PO SCH ×2 (08:34→16:34)
[2019-10-10] MEDS: ASPIRIN 81 MG TABLET, ENT COATED PO SCH (09:04)
[2019-10-10] MEDS: ROPINIROLE HCL 2 MG TABLET PO SCH ×2 (09:05→21:22)
[2019-10-10] MEDS: FUROSEMIDE 40 MG TABLET PO SCH (09:05)
[2019-10-10] MEDS: ANASTROZOLE 1 MG TABLET PO SCH (09:05)
[2019-10-10] MEDS: ACETAZOLAMIDE 250 MG TABLET PO SCH (09:05)
[2019-10-10] MEDS: ESCITALOPRAM OXALATE 10 MG TABLET PO SCH (09:05)
[2019-10-10] MEDS: FLUTICASONE NASAL SPRAY 50 MCG/SPRY 120 SPRAY/16 GM NASL SCH ×2 (09:05→21:23)
[2019-10-10] MEDS: FERROUS SULFATE 325 MG TABLET PO SCH (09:05)
[2019-10-10] MEDS: CARVEDILOL 12.5 MG TABLET PO SCH ×2 (09:05→21:22)
[2019-10-10] MEDS: SPIRONOLACTONE 25 MG TABLET PO SCH (09:05)
[2019-10-10] MEDS: LOSARTAN POTASSIUM 50 MG TABLET PO SCH (09:05)
--- NOTE | 2019-10-10 15:29 | PDOC PROGRESS REPORT ---
Subjective Reason For Visit: ACUTE CHF,ACUTE EXACERBATION COPD WITH HYPOXIA Physical Exam Vital Signs: Temp Pulse Resp BP Pulse Ox 98.8 F 68 18 148/50 H 94 10/10/19 11:07 10/10/19 14:00 10/10/19 13:40 10/10/19 11:07 10/10/19 13:40 Intake & Output 10/09/19 10/10/19 10/11/19 06:59 06:59 06:59 Intake Total 1800 1580 50 Balance 1800 1580 50 Weight 56.4 kg 57.9 kg Results Laboratory Results: 10/10/19 04:37 10/10/19 04:37 10/10/19 10/10/19 04:37 04:37 WBC 9.3 RBC 3.05 L Hgb 8.7 L Hct 25.2 L MCV 83 MCH 28.5 MCHC 34.5 RDW 17.9 H Plt Count 821 H Sodium 132.0 L Potassium 4.3 Chloride 93 L Carbon Dioxide 33 H Anion Gap 6 BUN 15 Creatinine 0.84 Est GFR ( Amer) > 60 Glucose 114 H Calcium 8.5 Magnesium 2.0 Total Bilirubin 0.5 AST 47 H Alkaline Phosphatase 126 Total Protein 5.5 L Albumin 2.7 L 10/07/19 18:00 Blood Blood Culture (PCR) - Final 10/07/19 10/07/19 10/08/19 16:28 22:25 05:44 Troponin I 0.015 0.019 0.024 NT-Pro-B Natriuret Pep 4740 H Impressions: Chest X-Ray 10/07/19 17:20 IMPRESSION: STABLE CARDIOMEGALY AND CHRONIC CHANGES. NO APPARENT ACUTE FINDINGS. Head CT 10/07/19 18:16 IMPRESSION: CHRONIC CHANGES OF ATROPHY AND MICROVASCULAR ISCHEMIA. NO ACUTE PROCESS. EVIDENCE OF ACUTE STROKE: NO. Assessment and Plan - Diagnosis (1) Acute UTI Is this a current diagnosis for this admission?: Yes Plan: Cefepime completed. Working on placement. (2) COPD with exacerbation Is this a current diagnosis for this admission?: Yes Plan: resolved (3) Acute congestive heart failure Qualifiers: Heart failure type: combined systolic and diastolic Qualified Code(s): I50.41 - Acute combined systolic (congestive) and diastolic (congestive) heart failure Is this a current diagnosis for this admission?: Yes Plan: resolved (4) Acute hypoxemic respiratory failure Is this a current diagnosis for this admission?: Yes Plan: Resolved (5) Dementia Qualifiers: Is this a current diagnosis for this admission?: Yes Plan: Patient reported to have altered mental status on admission but patient seems to be at her baseline. Possibly from some hypoxic encephalopathy on admission which is now resolved. Supportive care for dementia. (6) Valvular heart disease Is this a current diagnosis for this admission?: Yes Plan: Characterized by moderate aortic stenosis with ROSALBA of 1.2 cm and moderate mitral regurgitation both of which are significantly contributing to patient's diastolic heart failure. Continue gentle diuresis and afterload reduction. Outpatient follow-up with Dr. Ferrer. - Time Time Spent with patient: 15-24 minutes
[2019-10-10] MEDS: NIFEDIPINE 30 MG TAB.ER.24 PO SCH (17:05)
[2019-10-10] MEDS: ATORVASTATIN CALCIUM 20 MG TABLET PO SCH (21:22)
[2019-10-11] MEDS: HEPARIN SOD (PORCINE) 5,000 UNIT/ML 1 ML VIAL SUBCUT SCH ×3 (06:34→23:36)
[2019-10-11] MEDS: LEVOTHYROXINE SODIUM 0.15 MG TABLET PO SCH (06:34)
[2019-10-11] MEDS: PANTOPRAZOLE SODIUM 40 MG TABLET.DR PO SCH ×2 (06:34→16:19)
[2019-10-11] MEDS: CEFEPIME HCL 2 GM in DEXTROSE 5%-WATER 50 ML IV SCH ×2 (06:35→17:20)
[2019-10-11] MEDS: METFORMIN HCL 500 MG TABLET PO SCH ×2 (07:56→16:19)
[2019-10-11] MEDS: ALBUTEROL SULFATE 0.083% NEB 2.5 MG/3 ML AMPUL NEB SCH ×3 (08:02→20:05)
[2019-10-11] MEDS: ESCITALOPRAM OXALATE 10 MG TABLET PO SCH (09:15)
[2019-10-11] MEDS: SPIRONOLACTONE 25 MG TABLET PO SCH (09:15)
[2019-10-11] MEDS: CARVEDILOL 12.5 MG TABLET PO SCH ×2 (09:15→23:34)
[2019-10-11] MEDS: FUROSEMIDE 40 MG TABLET PO SCH (09:15)
[2019-10-11] MEDS: FERROUS SULFATE 325 MG TABLET PO SCH (09:15)
[2019-10-11] MEDS: LOSARTAN POTASSIUM 50 MG TABLET PO SCH (09:15)
[2019-10-11] MEDS: ACETAZOLAMIDE 250 MG TABLET PO SCH (09:16)
[2019-10-11] MEDS: ASPIRIN 81 MG TABLET, ENT COATED PO SCH (09:16)
[2019-10-11] MEDS: FLUTICASONE NASAL SPRAY 50 MCG/SPRY 120 SPRAY/16 GM NASL SCH ×2 (09:16→23:34)
[2019-10-11] MEDS: ROPINIROLE HCL 2 MG TABLET PO SCH ×2 (09:16→23:34)
[2019-10-11] MEDS: ANASTROZOLE 1 MG TABLET PO SCH (09:16)
--- NOTE | 2019-10-11 16:42 | PDOC PROGRESS REPORT ---
Subjective Progress Note for:: 10/11/19 Subjective:: No adverse events overnight. No new complaints. Patient's clinical condition is unchanged. We are working on placement for her. She remains comfortable on room air. Reason For Visit: ACUTE CHF,ACUTE EXACERBATION COPD WITH HYPOXIA Physical Exam Vital Signs: Temp Pulse Resp BP Pulse Ox 97.4 F 65 18 133/35 H 96 10/11/19 11:28 10/11/19 14:00 10/11/19 13:51 10/11/19 11:28 10/11/19 13:51 Intake & Output 10/10/19 10/11/19 10/12/19 06:59 06:59 06:59 Intake Total 1580 510 406 Balance 1580 510 406 Weight 57.9 kg 54.3 kg General appearance: PRESENT: no acute distress, cooperative, hard of hearing, thin Neck exam: ABSENT: JVD Respiratory exam: PRESENT: symmetrical, unlabored. ABSENT: tachypnea, wheezes Cardiovascular exam: PRESENT: +S1, +S2, systolic murmur. ABSENT: tachycardia GI/Abdominal exam: PRESENT: soft. ABSENT: rebound, rigid, tenderness Neurological exam: PRESENT: alert, awake, oriented to person. ABSENT: oriented to place, oriented to time Results Laboratory Results: 10/10/19 04:37 10/10/19 04:37 10/07/19 18:00 Blood Blood Culture (PCR) - Final 10/07/19 10/07/19 10/08/19 16:28 22:25 05:44 Troponin I 0.015 0.019 0.024 NT-Pro-B Natriuret Pep 4740 H Impressions: Chest X-Ray 10/07/19 17:20 IMPRESSION: STABLE CARDIOMEGALY AND CHRONIC CHANGES. NO APPARENT ACUTE FINDING S. Head CT 10/07/19 18:16 IMPRESSION: CHRONIC CHANGES OF ATROPHY AND MICROVASCULAR ISCHEMIA. NO ACUTE PROCESS. EVIDENCE OF ACUTE STROKE: NO. Assessment and Plan - Diagnosis (1) Acute UTI Is this a current diagnosis for this admission?: Yes Plan: Cefepime completed. Working on placement. (2) COPD with exacerbation Is this a current diagnosis for this admission?: Yes Plan: resolved (3) Acute congestive heart failure Qualifiers: Heart failure type: combined systolic and diastolic Qualified Code(s): I50.41 - Acute combined systolic (congestive) and diastolic (congestive) heart failure Is this a current diagnosis for this admission?: Yes Plan: resolved (4) Acute hypoxemic respiratory failure Is this a current diagnosis for this admission?: Yes Plan: Resolved (5) Dementia Qualifiers: Is this a current diagnosis for this admission?: Yes Plan: Patient reported to have altered mental status on admission but patient seems to be at her baseline. Possibly from some hypoxic encephalopathy on admission which is now resolved. Supportive care for dementia. (6) Valvular heart disease Is this a current diagnosis for this admission?: Yes Plan: Characterized by moderate aortic stenosis with ROSALBA of 1.2 cm and moderate mitral regurgitation both of which are significantly contributing to patient's diastolic heart failure. Continue gentle diuresis and afterload reduction. Outpatient follow-up with Dr. Ferrer. - Time Time Spent with patient: 15-24 minutes
[2019-10-11] MEDS: NIFEDIPINE 30 MG TAB.ER.24 PO SCH (17:20)
[2019-10-11] MEDS: ATORVASTATIN CALCIUM 20 MG TABLET PO SCH (23:34)
[2019-10-12] MEDS: LEVOTHYROXINE SODIUM 0.15 MG TABLET PO SCH (06:07)
[2019-10-12] MEDS: PANTOPRAZOLE SODIUM 40 MG TABLET.DR PO SCH ×2 (06:10→16:12)
[2019-10-12] MEDS: CEFEPIME HCL 2 GM in DEXTROSE 5%-WATER 50 ML IV SCH ×2 (06:15→17:07)
[2019-10-12] MEDS: HEPARIN SOD (PORCINE) 5,000 UNIT/ML 1 ML VIAL SUBCUT SCH ×2 (06:15→13:33)
[2019-10-12] MEDS: METFORMIN HCL 500 MG TABLET PO SCH ×2 (07:40→16:12)
[2019-10-12] MEDS: ALBUTEROL SULFATE 0.083% NEB 2.5 MG/3 ML AMPUL NEB SCH ×3 (08:50→20:12)
[2019-10-12] MEDS: FERROUS SULFATE 325 MG TABLET PO SCH (09:12)
[2019-10-12] MEDS: FUROSEMIDE 40 MG TABLET PO SCH (09:12)
[2019-10-12] MEDS: ACETAZOLAMIDE 250 MG TABLET PO SCH (09:12)
[2019-10-12] MEDS: ROPINIROLE HCL 2 MG TABLET PO SCH (09:12)
[2019-10-12] MEDS: LOSARTAN POTASSIUM 50 MG TABLET PO SCH (09:12)
[2019-10-12] MEDS: ASPIRIN 81 MG TABLET, ENT COATED PO SCH (09:12)
[2019-10-12] MEDS: CARVEDILOL 12.5 MG TABLET PO SCH (09:12)
[2019-10-12] MEDS: ESCITALOPRAM OXALATE 10 MG TABLET PO SCH (09:12)
[2019-10-12] MEDS: SPIRONOLACTONE 25 MG TABLET PO SCH (09:12)
[2019-10-12] MEDS: FLUTICASONE NASAL SPRAY 50 MCG/SPRY 120 SPRAY/16 GM NASL SCH (09:13)
[2019-10-12] MEDS: ANASTROZOLE 1 MG TABLET PO SCH (09:13)
--- NOTE | 2019-10-12 16:06 | PDOC TRANSFER SUMMARY ---
Impression - Admit/DC Date/PCP Admission Date/Primary Care Provider: 10/07/19 23:38 CORAZON CARRION PA-C Discharge Date: 10/12/19 - Discharge Diagnosis (1) Acute UTI Is this a current diagnosis for this admission?: Yes (2) COPD with exacerbation Is this a current diagnosis for this admission?: Yes (3) Acute congestive heart failure Is this a current diagnosis for this admission?: Yes (4) Acute hypoxemic respiratory failure Is this a current diagnosis for this admission?: Yes (5) Dementia Is this a current diagnosis for this admission?: Yes (6) Valvular heart disease Is this a current diagnosis for this admission?: Yes - Additional Information Resuscitation Status: Do Not Resuscitate Discharge Diet: Cardiac Discharge Activity: Activity As Tolerated, Balance Activity w/Rest, Supervised Activity Referrals: [facility] [Outside] (PATIENT WILL BE FOLLOWED BY [facility]. UPON D/C ON SELF QUARANTINE. ONCE CLEARED BY THEM PATIENT MAY MAKE A FOLLOW UP APPT. WITH PCP.) CORAZON CARRION PA-C [Primary Care Provider] - Follow up as needed Prescriptions: Spironolactone [Aldactone 25 mg Tablet] 25 mg PO DAILY #60 tablet Pantoprazole Sodium [Protonix [address] Tablet] 40 mg PO BID@0600,1700 #60 [address] Home Medications: Anastrozole [Arimidex 1 mg Tablet] 1 mg PO DAILY 07/11/19 Aspirin [Ecotrin 81 mg EC Tablet] 81 mg PO QHS 07/11/19 Atorvastatin Calcium [Lipitor 20 mg Tablet] 20 mg PO QHS 07/11/19 Escitalopram Oxalate [Lexapro] 20 mg PO QPM 07/11/19 Levothyroxine Sodium [Synthroid 0.15 mg Tablet] 0.15 mg PO Q6AM 07/11/19 Losartan Potassium [Cozaar] 100 mg PO DAILY 07/11/19 Metformin HCl [Glucophage 500 mg Tablet] 500 mg PO BID 07/11/19 Ropinirole HCl [Requip 2 mg Tablet] 2 mg PO BID 07/11/19 Carvedilol [Coreg 12.5 mg Tablet] 12.5 mg PO Q12 10/08/19 Nifedipine [Nifedipine ER] 60 mg PO QHS 10/08/19 Ferrous Sulfate [Feosol 325 mg Tablet] 325 mg PO DAILY tablet 10/12/19 Furosemide [Lasix 40 mg Tablet] 40 mg PO DAILY #0 10/12/19 Pantoprazole Sodium [Protonix [address] Tablet] 40 mg PO BID@0600,1700 #60 tablet. 10/12/19 Spironolactone [Aldactone 25 mg Tablet] 25 mg PO DAILY #60 tablet 10/12/19 History of Present Illiness History of Present Illness: SANDY DANG is a 89 year old female with a past medical history of diastolic heart failure, hypertension, diabetes, dementia, deafness and COPD. She is brought to the emergency room for evaluation of malodorous urine, fatigue and shortness of breath over the last 48 hours. In the emergency department she is found to have hypoxia, anemia, volume overload by chest x-ray and urinary tract infection. She receives Lasix, Rocephin, supplemental oxygen and referred to the hospitalist for admission. Patient is a very poor historian unable provide additional history. She is asleep but arousable and denies pain. Hospital Course Hospital Course: Her wheezing had resolved by her first full day in the hospital. She received a few days of IV antibiotics for urinary tract infection. We got her blood pressure under better control and diuresed her. Were not sure if she was taking her medications at home. Her was very reluctant to let her have home health or for her to go to a senior care facility, and has declined to do so in the past. Today, however, he was amenable to get her into a senior care facility for some physical therapy. There her medicines can be monitored as well. She got a bed at [facility]. Her labs and examination were reassuring and she was discharged in stable condition. Physical Exam Vital Signs: Temp Pulse Resp BP Pulse Ox 97.4 F 54 L 16 114/42 L 95 10/12/19 11:07 10/12/19 14:00 10/12/19 13:59 10/12/19 11:07 10/12/19 13:59 Intake & Output 10/11/19 10/12/19 10/13/19 06:59 06:59 06:59 Intake Total 510 556 200 Balance 510 556 200 Weight 54.3 kg 57.4 kg General appearance: PRESENT: no acute distress, cooperative, hard of hearing, thin Neck exam: ABSENT: JVD Respiratory exam: PRESENT: symmetrical, unlabored. ABSENT: tachypnea, wheezes Cardiovascular exam: PRESENT: +S1, +S2, systolic murmur. ABSENT: tachycardia GI/Abdominal exam: PRESENT: soft. ABSENT: rebound, rigid, tenderness Neurological exam: PRESENT: alert, awake, oriented to person. ABSENT: oriented to place, oriented to time Results Laboratory Results: WBC 9.3 10^3/uL (4.0-10.5) 10/10/19 04:37 RBC 3.05 10^6/uL (3.72-5.28) L 10/10/19 04:37 Hgb 8.7 g/dL (12.0-15.5) L 10/10/19 04:37 Hct 25.2 % (36.0-47.0) L 10/10/19 04:37 MCV 83 fl (80-97) 10/10/19 04:37 MCH 28.5 pg (27.0-33.4) 10/10/19 04:37 MCHC 34.5 g/dL (32.0-36.0) 10/10/19 04:37 RDW 17.9 % (11.5-14.0) H 10/10/19 04:37 Plt Count 821 10^3/uL (150-450) H 10/10/19 04:37 Lymph % (Auto) 13.9 % (13-45) 10/08/19 05:44 [place] % (Auto) 12.7 % (3-13) 10/08/19 05:44 Eos % (Auto) 1.1 % (0-6) 10/08/19 05:44 Baso % (Auto) 0.6 % (0-2) 10/08/19 05:44 Reticulocyte # 0.134 10^6/uL (0.028-0.122) H 10/07/19 16:28 Absolute Neuts (auto) 5.6 10^3/uL (1.7-8.2) 10/08/19 05:44 Absolute Lymphs (auto) 1.1 10^3/uL (0.5-4.7) 10/08/19 05:44 Absolute Monos (auto) 1.0 10^3/uL (0.1-1.4) 10/08/19 05:44 Absolute Eos (auto) 0.1 10^3/uL (0.0-0.6) 10/08/19 05:44 Absolute Basos (auto) 0.0 10^3/uL (0.0-0.2) 10/08/19 05:44 Seg Neutrophils % 71.7 % (42-78) 10/08/19 05:44 Retic Count (auto) 4.67 % (0.66-2.85) H 10/07/19 16:28 Carbonic Acid 1.30 mmol/L (1.05-1.35) 10/07/19 21:21 HCO3/H2CO3 Ratio 23:1 10/07/19 21:21 ABG pH 7.47 (7.35-7.45) H 10/07/19 21:21 ABG pCO2 43.3 mmHg (35-45) 10/07/19 21:21 ABG pO2 78.3 mmHg (80-100) L 10/07/19 21:21 ABG HCO3 31.1 mmol/L (20-24) H 10/07/19 21:21 ABG Total CO2 32.4 mmol/L (21-25) H 10/07/19 21:21 ABG O2 Saturation 96.2 % (94-98) 10/07/19 21:21 ABG Base Excess 6.8 mmol/L 10/07/19 21:21 FiO2 4L 10/07/19 21:21 Sodium 132.0 mmol/L (137-145) L 10/10/19 04:37 Potassium 4.3 mmol/L (3.6-5.0) 10/10/19 04:37 Chloride 93 mmol/L (98-107) L 10/10/19 04:37 Carbon Dioxide 33 mmol/L (22-30) H 10/10/19 04:37 Anion Gap 6 (5-19) 10/10/19 04:37 BUN 15 mg/dL (7-20) 10/10/19 04:37 Creatinine 0.84 mg/dL (0.52-1.25) 10/10/19 04:37 Est GFR ( Amer) > 60 (>60) 10/10/19 04:37 Est GFR (MDRD) Non-Af > 60 (>60) 10/10/19 04:37 Glucose 114 mg/dL (75-110) H 10/10/19 04:37 POC Glucose 132 mg/dL (70-110) H 10/12/19 15:25 Lactic Acid 1.5 mmol/L (0.7-2.1) 10/07/19 16:28 Calcium 8.5 mg/dL (8.4-10.2) 10/10/19 04:37 Magnesium 2.0 mg/dL (1.6-2.3) 10/10/19 04:37 Iron 20.3 ug/dL (37-170) L 10/07/19 16:28 TIBC 266 ug/dL (250-450) 10/07/19 16: % Saturation 8 % 10/07/19 16:28 Ferritin 51.30 ng/mL (11.1-264.0) 10/07/19 16:28 Total Bilirubin 0.5 mg/dL (0.2-1.3) 10/10/19 04:37 Direct Bilirubin 0.0 mg/dL (0.0-0.4) 10/10/19 04:37 Neonat Total Bilirubin Not Reportable 10/10/19 04:37 Neonat Direct Bilirubin Not Reportable 10/10/19 04:37 Neonat Indirect Bili Not Reportable 10/10/19 04:37 AST 47 U/L (14-36) H 10/10/19 04:37 ALT 23 U/L (<35) 10/10/19 04:37 Alkaline Phosphatase 126 U/L (38-126) 10/10/19 04:37 Troponin I 0.024 ng/mL 10/08/19 05:44 NT-Pro-B Natriuret Pep 4740 pg/mL (<450) H 10/07/19 16:28 Total Protein 5.5 g/dL (6.3-8.2) L 10/10/19 04:37 Albumin 2.7 g/dL (3.5-5.0) L 10/10/19 04:37 Lipase 102.7 U/L (23-300) 10/07/19 16:28 Vitamin B12 > 1000.0 pg/mL (239-931) H 10/07/19 16:28 Folate 11.00 ng/mL (>2.76) 10/07/19 16:28 TSH 5.02 uIU/mL (0.47-4.68) H 10/07/19 16:28 TSH Cancelled 10/07/19 16:28 Urine Color YELLOW 10/07/19 16:28 Urine Appearance SLIGHTLY-CLOUDY 10/07/19 16:28 Urine pH 6.0 (5.0-9.0) 10/07/19 16:28 Ur Specific [place] 1.011 10/07/19 16:28 Urine Protein 30 mg/dL (NEGATIVE) H 10/07/19 16:28 Urine Glucose (UA) NEGATIVE mg/dL (NEGATIVE) 10/07/19 16:28 Urine Ketones NEGATIVE mg/dL (NEGATIVE) 10/07/19 16:28 Urine Blood NEGATIVE (NEGATIVE) 10/07/19 16:28 Urine Nitrite POSITIVE (NEGATIVE) H 10/07/19 16:28 Urine Bilirubin NEGATIVE (NEGATIVE) 10/07/19 16:28 Urine Urobilinogen NEGATIVE mg/dL (<2.0) 10/07/19 16:28 Ur Leukocyte Esterase NEGATIVE (NEGATIVE) 10/07/19 16:28 Urine WBC (Auto) 9 /HPF 10/07/19 16:28 Urine RBC (Auto) 0 /HPF 10/07/19 16:28 Urine Bacteria (Auto) 3+ /HPF 10/07/19 16:28 Urine Mucus (Auto) RARE /LPF 10/07/19 16:28 Urine Ascorbic Acid NEGATIVE (NEGATIVE) 10/07/19 16:28 POC Stool Occult Blood NEGATIVE (NEGATIVE) 10/07/19 17:47 Urine Opiates Screen NEGATIVE 10/07/19 16:28 Urine Methadone Screen NEGATIVE 10/07/19 16:28 Ur Barbiturates Screen NEGATIVE 10/07/19 16:28 Ur Phencyclidine Scrn NEGATIVE 10/07/19 16:28 Ur Amphetamines Screen NEGATIVE 10/07/19 16:28 U Benzodiazepines Scrn NEGATIVE 10/07/19 16:28 Urine Cocaine Screen NEGATIVE 10/07/19 16:28 U Marijuana (THC) Screen NEGATIVE 10/07/19 16:28 Serum Alcohol < 10 mg/dL (NONE DETECTED) 10/07/19 16:28 COVID-19 Source NASOPHARYNGEAL 10/07/19 18:38 COVID-19 (KT) NOT DETECTED 10/07/19 18:38 Influenza A (Rapid) NEGATIVE (NEGATIVE) 10/07/19 18:15 Influenza B (Rapid) NEGATIVE (NEGATIVE) 10/07/19 18:15 Group A Strep Rapid NEGATIVE (NEGATIVE) 10/07/19 18:15 10/07/19 10/07/19 10/08/19 16:28 22:25 05:44 Troponin I 0.015 0.019 0.024 NT-Pro-B Natriuret Pep 4740 H Impressions: Chest X-Ray 10/07/19 17:20 IMPRESSION: STABLE CARDIOMEGALY AND CHRONIC CHANGES. NO APPARENT ACUTE FINDINGS. Head CT 10/07/19 18:16 IMPRESSION: CHRONIC CHANGES OF ATROPHY AND MICROVASCULAR ISCHEMIA. NO ACUTE PROCESS. EVIDENCE OF ACUTE STROKE: NO. Plan Time Spent: Greater than 30 Minutes Stroke Is this a Stroke Patient?: No Acute Heart Failure - Is this a Heart Failure Patient?: Yes Documentation of LVEF assessment?: Yes LVEF < 40%?: No- if no continue to question #3 3. Anticoagulant therapy for permanect/persistent/paraoxysmal Afib or Aflutter: N/A Follow-up Appointment scheduled within 7 days?: Yes
[2019-10-12] MEDS: NIFEDIPINE 30 MG TAB.ER.24 PO SCH (17:03)
[2019-10-12 21:15] VITALS: BP 140/34
== END 2019-10-12 21:00 | DRG 190 ==
LOC: ER 16:11 → EH 23:38 → UNDOADMOB 23:38 → OBSVTOIN 23:38 → INTOOBSV 23:38 → EH 10-08 01:41 → 5 10-08 01:41 → EH 10-08 14:39 → OBSVTOIN 10-08 14:39 → 5 10-08 14:39 → 4N 10-09 08:40 → 5 10-09 08:40 → UNDODISIN 10-12 21:00
PROVIDERS: ADMIT Internal Medicine; ATTEND Family Medicine
DX: J44.1 Chronic obstructive pulmonary disease with (acute) exacerbation (principal); I50.33 Acute on chronic diastolic (congestive) heart failure; J96.01 Acute respiratory failure with hypoxia; N39.0 Urinary tract infection, site not specified; I38 Endocarditis, valve unspecified; F03.90 Unspecified dementia, unspecified severity, without behavioral disturbance, psychotic disturbance, mood disturbance, and anxiety; Z66 Do not resuscitate; I11.0 Hypertensive heart disease with heart failure; E11.9 Type 2 diabetes mellitus without complications; H91.90 Unspecified hearing loss, unspecified ear; E78.5 Hyperlipidemia, unspecified; E03.9 Hypothyroidism, unspecified; J44.0 Chronic obstructive pulmonary disease with (acute) lower respiratory infection; J20.9 Acute bronchitis, unspecified; Z20.828 Contact with and (suspected) exposure to other viral communicable diseases; D50.9 Iron deficiency anemia, unspecified; K21.9 Gastro-esophageal reflux disease without esophagitis; Z79.82 Long term (current) use of aspirin; Z79.899 Other long term (current) drug therapy; Z79.84 Long term (current) use of oral hypoglycemic drugs; Z85.3 Personal history of malignant neoplasm of breast; Z90.11 Acquired absence of right breast and nipple; Z87.891 Personal history of nicotine dependence; Z79.890 Hormone replacement therapy; Z82.49 Family history of ischemic heart disease and other diseases of the circulatory system; Z88.8 Allergy status to other drugs, medicaments and biological substances
CPT/HCPCS: 36415; 70450; 71045; 80048; 80053; 80307; 81001; 82270; 82607; 82728; 82746; 82803; 82962; 83540; 83550; 83605; 83690; 83735; 83880; 84443; 84484; 85025; 85027; 85045; 87040; 87070; 87077; 87150; 87186; 87635; 87804; 87880; 93005; 93010; 94799; 96361; 96365; 96375; 99285; C1758; G0378; J0360; J0692; J1644; J1756; J1940; J3370; J3475; J3490; J7040; J7060; J7620

== ENCOUNTER 2019-12-10 23:40 | Inpatient (IN) | payer MEDICARE, OTHER ==
[2019-12-11] MEDS ORDERED: FUROSEMIDE INJ/PF 20 MG/2 ML SDV IV ONE (00:16)
[2019-12-11] MEDS ORDERED: NITROGLYCERIN 2% OINTMENT 1 GM PACKET TP ONE (00:16)
[2019-12-11 00:54] LABS: ABSOLUTE BASOPHILS # (AUTO) 0.1 10^3/uL (0.0-0.2); ABSOLUTE EOSINOPHILS # (AUTO) 0.3 10^3/uL (0.0-0.6); ABSOLUTE LYMPHOCYTES (AUTO) 1.4 10^3/uL (0.5-4.7); ABSOLUTE NEUT (AUTO) 6.1 10^3/uL (1.7-8.2); BASOPHILS % (AUTO) 0.9 % (0-2); EOSINOPHILS % (AUTO) 3.3 % (0-6); HEMATOCRIT 28.6 % (36.0-47.0); HEMOGLOBIN 9.1 g/dL (12.0-15.5); LYMPHOCYTES % (AUTO) 15.2 % (13-45); MEAN CORPUSCULAR HEMOGLOBIN 26.1 pg (27.0-33.4); MEAN CORPUSCULAR HGB CONC 31.7 g/dL (32.0-36.0); MEAN CORPUSCULAR VOLUME 82 fl (80-97); MONOCYTES % (AUTO) 11.7 % (3-13); PLATELET COUNT 995 10^3/uL (150-450); RED BLOOD COUNT 3.47 10^6/uL (3.72-5.28); RED CELL DISTRIBUTION WIDTH 16.7 % (11.5-14.0); SEGMENTED NEUTROPHILS % (AUTO) 68.9 % (42-78); TOTAL CELLS COUNTED % (AUTO) 100 %; WHITE BLOOD COUNT 8.9 10^3/uL (4.0-10.5)
--- NOTE | 2019-12-11 00:56 | RADIOLOGY REPORT (SQ) ---
EXAM DESCRIPTION: X-ray, AP portable view of the chest CLINICAL HISTORY: 89 years Female, dyspnea COMPARISON: Single view of the chest 10/07/2019 FINDINGS: Lungs: Asymmetric elevation the right hemidiaphragm is unchanged. Diffuse prominence of the interstitial markings with multifocal opacification is also stable. Given the chronicity of this appearance findings most likely related to chronic interstitial lung disease. When compared to the previous exam there is development of subtle more focal consolidation in the left medial lung base. Mediastinum: Cardiac and mediastinal silhouette are enlarged. There is vascular calcifications in the thoracic aorta. Bones: Osseous structures are stable IMPRESSION: 1. Asymmetric elevation the right hemidiaphragm with chronic changes of interstitial lung disease. 2. Subtle development of focal consolidation the left medial lung base concerning for pneumonia.
[2019-12-11 01:37] LABS: ALBUMIN 3.4 g/dL (3.5-5.0); ALKALINE PHOSPHATASE 230 U/L (38-126); ANION GAP 8 (5-19); ASPARTATE AMINO TRANSFERASE 49 U/L (14-36); BILIRUBIN,TOTAL 0.2 mg/dL (0.2-1.3); BLOOD UREA NITROGEN 27 mg/dL (7-20); CALCIUM 9.3 mg/dL (8.4-10.2); CARBON DIOXIDE 28 mmol/L (22-30); CHLORIDE 104 mmol/L (98-107); GLUCOSE 184 mg/dL (75-110); POTASSIUM 5.4 mmol/L (3.6-5.0); TOTAL PROTEIN 6.6 g/dL (6.3-8.2)
--- NOTE | 2019-12-11 07:22 | ER Document Report ---
Entered by ANGEL SAWYER SCRIBE 12/10/19 [id number] Acting as scribe for:JAHAIRA KEITH IV, MD ED Respiratory Problem - General Chief Complaint: Respiratory Distress Stated Complaint: RESPIRATORY DISTRESS Primary Care Provider: CORAZON CARRION PA-C [Primary Care Provider] - Follow up as needed Mode of Arrival: Medic Information source: Emergency Med Personnel Notes: This 89 year old female patient with a history of COPD, PNA, CHF, respiratory failure, and dementia brought in by EMS from home presents to the ED today with complaints of respiratory distress that occurred just prior to arrival. Per EMS, patient does not wear O2 at home and had a O2 sats of 47% on RA. EMS placed the patient on 15 L O2 via NRB and the patient's O2 sats increased to 79%. Upon arrival to ED, patient was placed on BiPAP with O2 sats 100%. Per ED nurse, patient denies any other symptoms and states that she is a former smoker. TRAVEL OUTSIDE OF THE [place] IN LAST 30 DAYS: No - Related Data Allergies/Adverse Reactions: diazepam [From Valium] Allergy (Verified 07/11/19 08:14) Past Medical History - General Information source: Patient, Emergency Med Personnel - Social History Smoking Status: Former Smoker Cigarette use (# per day): No Chew tobacco use (# tins/day): No Smoking Education Provided: No Lives with: Spouse/Significant other Family History: Reviewed & Not Pertinent, CAD, Hypertension Patient has suicidal ideation: No Patient has homicidal ideation: No - Past Medical History Cardiac Medical History: Reports: Hx Congestive Heart Failure, Hx Hypercholesterolemia, Hx Hypertension Pulmonary Medical History: Reports: Hx COPD, Hx Pneumonia, Hx Respiratory F ailure Neurological Medical History: Reports: Hx Cerebrovascular Accident Endocrine Medical History: Reports: Hx Diabetes Mellitus Type 1, Hx Diabetes Mellitus Type 2, Hx Hypothyroidism Malignancy Medical History: Reports: Hx Breast Cancer GI Medical History: Reports: Hx Gastroesophageal Reflux Disease Musculoskeletal Medical History: 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 Psychiatric Medical History: Reports: Hx Dementia Past Surgical History: Reports: Hx Appendectomy, Hx Cholecystectomy, Hx Mastectomy - right - Immunizations Hx Diphtheria, Pertussis, Tetanus Vaccination: Yes Hx Pneumococcal Vaccination: 06/14/12 Review of Systems - Review of Systems Constitutional: No symptoms reported EENT: No symptoms reported Cardiovascular: See HPI, Dyspnea Respiratory: See HPI, Short of breath Gastrointestinal: No symptoms reported Genitourinary: No symptoms reported Female Genitourinary: No symptoms reported Musculoskeletal: No symptoms reported Skin: No symptoms reported Hematologic/Lymphatic: No symptoms reported Neurological/Psychological: No symptoms reported -: Yes All other systems reviewed and negative Physical Exam - Vital signs Vitals: Resp Pulse Ox 19 100 12/10/19 23:43 12/10/19 23:43 - General General appearance: Alert In distress: None - HEENT Head: Normocephalic, Atraumatic Eyes: Normal Pupils: PERRL - Respiratory Respiratory status: Tachypnea, Other - on BiPAP Chest status: Nontender Breath sounds: Rales Chest palpation: Normal - Cardiovascular Rhythm: Regular, Tachycardia Heart sounds: Normal auscultation Murmur: No Friction rub: No Gallop: None auscultated - Abdominal Inspection: Normal Distension: No distension Bowel sounds: Normal Tenderness: Nontender - Abdomen soft Organomegaly: No organomegaly - Back Back: Normal, Nontender - Extremities General upper extremity: Normal inspection General lower extremity: Normal inspection. No: Edema - Neurological Neuro grossly intact: Yes - Psychological Associated symptoms: Normal affect, Normal mood - Skin Skin Temperature: Warm Skin Moisture: Dry Skin Color: Normal Course - Vital Signs Vital signs: Temp Pulse Resp BP Pulse Ox 97.5 F 17 173/105 H 100 12/10/19 23:49 12/11/19 06:01 12/11/19 06:00 12/11/19 06:01 - Laboratory Result Diagrams: 12/10/19 23:42 12/10/19 23:42 Laboratory results interpreted by me: 12/10/19 12/10/19 12/10/19 23:42 23:42 23:42 RBC 3.47 L Hgb 9.1 L Hct 28.6 L MCH 26.1 L MCHC 31.7 L RDW 16.7 H Plt Count 995 H Potassium 5.4 H BUN 27 H Glucose 184 H AST 49 H Alkaline Phosphatase 230 H NT-Pro-B Natriuret Pep 2170 H Albumin 3.4 L - EKG Interpretation by Me Additional EKG results interpreted by me: 12/11/19 08:36 EKG obtained on 12/10/2019 at 2338 hrs. was interpreted by this MD. Findings: Sinus rhythm, rate 98, P waves preceding QRS complexes, right bundle branch block is present, there are no obvious patterns of ST segment elevation or depression present to suggest acute myocardial ischemia or infarction. Impression: Normal sinus rhythm with right bundle branch block and nonspecific ST segments. - Consults dr. roberto Time consulted: 08:38 - dr roberto agreed to admit pt Reason for consultation: 12/11/19 08:38 chf exacerbation, on bipap Critical Care Note - Critical Care Note Total time excluding time spent on procedures (mins): 120 - pt put on bipap for respiratory distress Discharge - Discharge Clinical Impression: Acute exacerbation of CHF (congestive heart failure) Qualifiers: Heart failure type: unspecified Qualified Code(s): I50.9 - Heart failure, unspecified Condition: Stable Disposition: ADMITTED INPATIENT Admitting Provider: Davina (Hospitalist) Unit Admitted: Telemetry Referrals: CORAZON CARRION PA-C [Primary Care Provider] - Follow up as needed I personally performed the services described in the documentation, reviewed and edited the documentation which was dictated to the scribe in my presence, and it accurately records my words and actions.
--- NOTE | 2019-12-11 08:07 | EKG REPORT ---
SEVERITY:- ABNORMAL ECG - SINUS TACHYCARDIA VENTRICULAR PREMATURE COMPLEX PROBABLE LEFT ATRIAL ABNORMALITY INCOMPLETE RBBB AND LAFB : Confirmed by: Roel Cordero 11-Dec-2019 08:07:05
[2019-12-11] MEDS ORDERED: PROMETHAZINE HCL INJ 25 MG/1 ML VIAL IV PRN (14:34)
[2019-12-11] MEDS ORDERED: LEVALBUTEROL HCL NEB 1.25 MG/3 ML AMPUL NEB PRN (14:34)
[2019-12-11] MEDS ORDERED: ACETAMINOPHEN 325 MG TABLET PO PRN (14:34)
[2019-12-11] MEDS ORDERED: MAGNESIUM HYDROXIDE SUSP 30 ML UDCUP PO PRN (14:34)
[2019-12-11] MEDS ORDERED: MAG HYDROX/AL HYDROX/SIMETH SUSP 30 ML UDCUP PO PRN (14:34)
--- NOTE | 2019-12-11 15:16 | PDOC H&P ---
History of Present Illness Admission Date/PCP: 12/11/19 09:19 CORAZON CARRION PA-C Patient complains of: Shortness of breath History of Present Illness: SANDY DANG is a 89 year old female with multiple admissions for heart failure. She was on BiPAP so it was difficult to get much of a history and the information is more from the emergency department physician records and her last history and physical from her September admission. 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 Upon their arrival they state that the patient does not have oxygen at home. Her saturations were 47% on room air. Nonrebreather mask at 15 L/min was placed on the patient and her O2 sats began to increase. They were 79% at last check and transfer to the emergency department was carried out. In the emergency department she was placed on BiPAP but 100% with saturations reaching 100%. We cannot taper the FiO2 to keep her saturations between 90 and 94%. She does have a past medical history of diastolic heart failure, hypertension and hyperlipidemia. She also has a history of chronic obstructive pulmonary disease and pneumonia. She is diabetic. She is treated for history of breast cancer. She has reflux, arthritis and dementia. She does have bleeding tendencies and is typically anemic. She is currently resting on BiPAP. She is a little restless. Past Medical History Cardiac Medical History: Reports: Congestive Heart Failure, Hyperlipidema, Hypertension Denies: Coronary Artery Disease, Myocardial Infarction Pulmonary Medical History: Reports: Chronic Obstructive Pulmonary Disease (COPD), Pneumonia, Respiratory Failure Denies: Asthma, Bronchitis, Tuberculosis Neurological Medical History: Denies: Seizures Endocrine Medical History: Reports: Diabetes Mellitus Type 2, Hypothyroidism Malignancy Medical History: Reports: Breast Cancer GI Medical History: Reports: Gastroesophageal Reflux Disease Musculoskeltal Medical History: Reports: Arthritis - Neck Psychiatric Medical History: Reports: Dementia, Tobacco Dependency Denies: Depression Traumatic Medical History: Reports: None Hematology: Reports: Anemia, Bleeding Tendencies Past Surgical History Past Surgical History: Reports: Appendectomy, Cholecystectomy, Mastectomy - right, Other - Unknown Denies: Hysterectomy Social History Information Source: Patient, [facility] Records Lives with: Spouse/Significant other Smoking Status: Former Smoker Electronic Cigarette use?: No Frequency of Alcohol Use: None Hx Recreational Drug Use: No Drugs: None Hx Prescription Drug Abuse: No - Advance Directive Resuscitation Status: Do Not Resuscitate Surrogate healthcare decision maker:: [place] consistent with her last admission Family History Family History: CAD, Hypertension Family History: Based on emergency department exam this patient is here was on a magnesium. Case this is during my encounter Parental Family History Reviewed: No Children Family History Reviewed: No Sibling(s) Family History Reviewed.: No Medication/Allergy Home Medications: Anastrozole [Arimidex 1 mg Tablet] 1 mg PO DAILY 07/11/19 Aspirin [Ecotrin 81 mg EC Tablet] 81 mg PO QHS 07/11/19 Atorvastatin Calcium [Lipitor 20 mg Tablet] 20 mg PO QHS 07/11/19 Escitalopram Oxalate [Lexapro] 20 mg PO QPM 07/11/19 Levothyroxine Sodium [Synthroid 0.15 mg Tablet] 0.15 mg PO Q6AM 07/11/19 Losartan Potassium [Cozaar] 100 mg PO DAILY 07/11/19 Metformin HCl [Glucophage 500 mg Tablet] 500 mg PO BID 07/11/19 Ropinirole HCl [Requip 2 mg Tablet] 2 mg PO BID 07/11/19 Carvedilol [Coreg 12.5 mg Tablet] 12.5 mg PO Q12 10/08/19 Nifedipine [Nifedipine ER] 60 mg PO QHS 10/08/19 Ferrous Sulfate [Feosol 325 mg Tablet] 325 mg PO DAILY tablet 10/12/19 Furosemide [Lasix 40 mg Tablet] 40 mg PO DAILY #0 10/12/19 Pantoprazole Sodium [Protonix [address] Tablet] 40 mg PO BID@0600,1700 #60 tablet.dr 10/12/19 Spironolactone [Aldactone 25 mg Tablet] 25 mg PO DAILY #60 tablet 10/12/19 Allergies/Adverse Reactions: diazepam [From Valium] Allergy (Verified 07/11/19 08:14) Review of Systems ROS unobtainable: Due to mental status, Other - Due to BiPaP and tachypnea Physical Exam Vital Signs: Temp Pulse Resp BP Pulse Ox 97.5 F 16 164/57 H 100 12/10/19 23:49 12/11/19 12:29 12/11/19 12:00 12/11/19 12:29 Intake & Output 12/10/19 12/11/19 12/12/19 06:59 06:59 06:59 Weight 60.3 kg General appearance: PRESENT: mild distress - Mild to moderate distress, thin - Frail Eye exam: PRESENT: conjunctiva pale. ABSENT: scleral icterus Ear exam: PRESENT: normal external ear exam. ABSENT: bleeding, drainage Mouth exam: PRESENT: other - Unable to assess Respiratory exam: PRESENT: rales, symmetrical, tachypnea. ABSENT: stridor, wheezes Cardiovascular exam: PRESENT: RRR, +S1, +S2 GI/Abdominal exam: PRESENT: diminished bowel sounds, soft. ABSENT: tenderness Rectal exam: PRESENT: deferred Extremities exam: ABSENT: pedal edema Musculoskeletal exam: PRESENT: other - Decreased muscle mass Neurological exam: PRESENT: alert, awake, oriented to person, other - Difficult to further assess Psychiatric exam: PRESENT: unusual affect - Reflecting her current clinical Focused psych exam: PRESENT: restlessness Skin exam: PRESENT: dry, warm. ABSENT: rash Results Laboratory Results: 12/10/19 23:42 12/10/19 23:42 12/10/19 12/10/19 23:42 23:42 WBC 8.9 RBC 3.47 L Hgb 9.1 L Hct 28.6 L MCV 82 MCH 26.1 L MCHC 31.7 L RDW 16.7 H Plt Count 995 H Seg Neutrophils % 68.9 Sodium 139.6 Potassium 5.4 H Chloride 104 Carbon Dioxide 28 Anion Gap 8 BUN 27 H Creatinine 0.71 Est GFR ( Amer) > 60 Glucose 184 H Calcium 9.3 Total Bilirubin 0.2 AST 49 H Alkaline Phosphatase 230 H Total Protein 6.6 Albumin 3.4 L 12/10/19 12/10/19 23:42 23:42 Troponin I 0.024 NT-Pro-B Natriuret Pep 2170 H Impressions: Chest X-Ray 12/11/19 00:15 IMPRESSION: 1. Asymmetric elevation the right hemidiaphragm with chronic changes of interstitial lung disease. 2. Subtle development of focal consolidation the left medial lung base concerning for pneumonia. Assessment and Plan - Diagnosis (1) Acute hypoxemic respiratory failure Is this a current diagnosis for this admission?: Yes Plan: 12/11/2019 The patient is currently on BiPAP. Will attempt to wean from BiPAP. Respiratory failure is most likely due to exacerbation of her diastolic heart failure however radiology interprets the x-ray is possible pneumonia. There will be treatment plans for both diagnoses. Attempt to wean patient from BiPAP and subsequently oxygen. She is not on home oxygen according to the records. (2) Acute on chronic diastolic CHF (congestive heart failure) Is this a current diagnosis for this admission?: Yes Plan: 12/11/2019 Most recent echo from 2020 shows grade 3/4 diastolic failure with normal ejection fraction. She also has multiple valve pathologies including aortic stenosis. We will try to avoid hypotension and hypovolemia. We will increase furosemide as slightly. We will continue losartan and spironolactone at the current doses. Will monitor intake and output as well as electrolytes. She will be on a cardiac diet. (3) COPD (chronic obstructive pulmonary disease) Qualifiers: Chronic bronchitis type: unspecified Is this a current diagnosis for this admission?: Yes Plan: 12/11/2019 The patient is not on home oxygen. There are no inhalers listed on her medication list from her last admission. I will utilize Xopenex as needed. Taper BiPAP and oxygen as noted above. (4) Dementia Qualifiers: Dementia type: unspecified type Dementia behavioral disturbance: without behavioral disturbance Qualified Code(s): F03.90 - Unspecified dementia without behavioral disturbance Is this a current diagnosis for this admission?: Yes Plan: 12/11/2019 The patient is not on any specific medications for dementia. Will provide supportive care and monitor closely. (5) Pneumonia Qualifiers: Pneumonia type: due to unspecified organism Laterality: unspecified laterality Lung location: unspecified part of lung Qualified Code(s): J18.9 - Pneumonia, unspecified organism Is this a current diagnosis for this admission?: Yes Plan: 12/11/2019 Per x-ray there appears to be an infiltrate. She does not have a typical viral pneumonia presentation by imaging. She has been tested for Covid-19 by the pid test. I will also initiate antibiotic therapy with ceftriaxone and azithromycin. If she does return is: Positive I will add zinc, vitamin C and other supplements typically used to support COVID patients. (6) Hyperglycemia due to type 2 diabetes mellitus Qualifiers: Diabetes mellitus oil heaterman insulin use: without chcf use Qualified Code(s): E11.65 - Type 2 diabetes mellitus with hyperglycemia Is this a current diagnosis for this admission?: Yes Plan: 12/11/2019 We will continue patient's metformin. She will be on her pain control carbohydrate diet. We will check Accu-Cheks before meals and at bedtime. We will also use sliding scale coverage. (7) Anemia of chronic disease Is this a current diagnosis for this admission?: Yes Plan: 12/02/2019 Hemoglobin was 9.1 on admission. We will continue with ferrous sulfate 325 mg daily. We will monitor hemoglobin with routine laboratory studies (8) Hyperkalemia Is this a current diagnosis for this admission?: Yes Plan: 12/11/2019 This could be related to losartan and Spironolactone. Will monitor serum potassium with increased diuresis. If need be we may have to lower the spironolactone or losartan dosing. (9) Pulmonary hypertension Is this a current diagnosis for this admission?: Yes Plan: 12/11/2019 The patient has severe pulmonary hypertension. We will continue her current medication regimen. Oxygen supplementation. Supportive care. This is likely correct for chronic recurrent episodes of respiratory failure. (10) Hypothyroidism Qualifiers: Hypothyroidism type: unspecified Qualified Code(s): E03.9 - Hypothyroidism, unspecified Is this a current diagnosis for this admission?: Yes Plan: 12/11/2019 Continue 150 mcg of levothyroxine daily (11) Gastroesophageal reflux disease Qualifiers: Esophagitis presence: without esophagitis Qualified Code(s): K21.9 - Gastro-esophageal reflux disease without esophagitis Is this a current diagnosis for this admission?: Yes Plan: 12/11/2019 Continue Protonix (12) History of breast cancer Is this a current diagnosis for this admission?: Yes Plan: 12/11/2019 Continue anastrozole - Time Time Spent with patient: 35 or more minutes Medications reviewed and adjusted accordingly: Yes - Inpatient Certification Based on my medical assessment, after consideration of the patient's comorbidities, presenting symptoms, or acuity I expect that the services needed warrant INPATIENT care.: Yes I certify that my determination is in accordance with my understanding of Medicare's requirements for reasonable and necessary INPATIENT services [42 CFR 412.3e].: Yes Medical Necessity: Need Close Monitoring Due to Risk of Patient Decompensation, Need For Continuous Telemetry Monitoring, Need for Nebulizer Therapy and Monitoring of Response, Need for IV Antibiotics Post Hospital Care: D/C Travel Registered Nurse Oncology Documentation
[2019-12-11] MEDS ORDERED: DEXTROSE 50%-WATER 25 GM/50 ML DISP.SYRIN IV PRN ×2 (15:23)
[2019-12-11] MEDS ORDERED: DEXTROSE 40% GEL 15 GM TUBE PO PRN ×2 (15:23)
[2019-12-11] MEDS ORDERED: GLUCAGON,HUMAN RECOMB 1 MG INJ IM PRN (15:23)
[2019-12-11] MEDS: INSULIN REG, HUMAN 100 UNIT/ML 3 ML VIAL (PYX) SUBCUT SCH ×2 (18:29→22:30)
[2019-12-11] MEDS: METFORMIN HCL 500 MG TABLET PO SCH (18:29)
[2019-12-11] MEDS: FUROSEMIDE INJ/PF 20 MG/2 ML SDV IV SCH (18:32)
[2019-12-11] MEDS: AZITHROMYCIN 500 MG in DEXTROSE 5%-WATER 250 ML IV SCH (18:43)
[2019-12-11] MEDS: ASPIRIN 81 MG TABLET, ENT COATED PO SCH (22:29)
[2019-12-11] MEDS: ATORVASTATIN CALCIUM 20 MG TABLET PO SCH (22:29)
[2019-12-11] MEDS: HEPARIN SOD (PORCINE) 5,000 UNIT/ML 1 ML VIAL SUBCUT SCH (22:30)
[2019-12-11] MEDS: ROPINIROLE HCL 2 MG TABLET PO SCH (22:34)
[2019-12-11] MEDS: CEFTRIAXONE 1 GM/D5W RTU 1 GM/50 ML RTUPB IV SCH (22:44)
[2019-12-12] MEDS: FUROSEMIDE INJ/PF 20 MG/2 ML SDV IV SCH ×2 (05:46→18:31)
[2019-12-12] MEDS: LEVOTHYROXINE SODIUM 0.15 MG TABLET PO SCH (05:48)
[2019-12-12] MEDS: PANTOPRAZOLE SODIUM 40 MG TABLET.DR PO SCH (05:48)
[2019-12-12] MEDS: HEPARIN SOD (PORCINE) 5,000 UNIT/ML 1 ML VIAL SUBCUT SCH ×3 (05:49→22:16)
[2019-12-12 07:35] LABS: ABSOLUTE BASOPHILS # (AUTO) 0.1 10^3/uL (0.0-0.2); ABSOLUTE EOSINOPHILS # (AUTO) 0.3 10^3/uL (0.0-0.6); ABSOLUTE LYMPHOCYTES (AUTO) 1.1 10^3/uL (0.5-4.7); ABSOLUTE MONOCYTES (AUTO) 1.2 10^3/uL (0.1-1.4); ABSOLUTE NEUT (AUTO) 6.7 10^3/uL (1.7-8.2); BASOPHILS % (AUTO) 0.7 % (0-2); EOSINOPHILS % (AUTO) 2.9 % (0-6); HEMATOCRIT 29.6 % (36.0-47.0); HEMOGLOBIN 9.4 g/dL (12.0-15.5); LYMPHOCYTES % (AUTO) 12.1 % (13-45); MEAN CORPUSCULAR HEMOGLOBIN 25.6 pg (27.0-33.4); MEAN CORPUSCULAR HGB CONC 31.8 g/dL (32.0-36.0); MEAN CORPUSCULAR VOLUME 81 fl (80-97); MONOCYTES % (AUTO) 12.6 % (3-13); PLATELET COUNT 993 10^3/uL (150-450); RED BLOOD COUNT 3.67 10^6/uL (3.72-5.28); RED CELL DISTRIBUTION WIDTH 16.7 % (11.5-14.0); SEGMENTED NEUTROPHILS % (AUTO) 71.7 % (42-78); TOTAL CELLS COUNTED % (AUTO) 100 %; WHITE BLOOD COUNT 9.4 10^3/uL (4.0-10.5)
[2019-12-12 07:44] LABS: BLOOD UREA NITROGEN 25 mg/dL (7-20); CALCIUM 9.5 mg/dL (8.4-10.2); CARBON DIOXIDE 34 mmol/L (22-30); CHLORIDE 96 mmol/L (98-107); GLUCOSE 131 mg/dL (75-110); POTASSIUM 4.8 mmol/L (3.6-5.0)
[2019-12-12 07:45] LABS: ANION GAP 7 (5-19)
[2019-12-12] MEDS: SPIRONOLACTONE 25 MG TABLET PO SCH (09:37)
[2019-12-12] MEDS: INSULIN REG, HUMAN 100 UNIT/ML 3 ML VIAL (PYX) SUBCUT SCH ×3 (09:37→18:30)
[2019-12-12] MEDS: ANASTROZOLE 1 MG TABLET PO SCH (09:37)
[2019-12-12] MEDS: METFORMIN HCL 500 MG TABLET PO SCH ×2 (09:37→18:28)
[2019-12-12] MEDS: LOSARTAN POTASSIUM 50 MG TABLET PO SCH (09:38)
[2019-12-12] MEDS: FERROUS SULFATE 325 MG TABLET PO SCH (09:38)
[2019-12-12] MEDS: ESCITALOPRAM OXALATE 10 MG TABLET PO SCH (09:38)
[2019-12-12] MEDS: AZITHROMYCIN 500 MG in DEXTROSE 5%-WATER 250 ML IV SCH (18:31)
--- NOTE | 2019-12-12 19:19 | PDOC PROGRESS REPORT ---
Subjective Progress Note for:: 12/12/19 Subjective:: Patient noted to have some trouble swallowing today. Speech therapy consulted. Patient feels well denies any shortness of breath. Reason For Visit: CONGESTIVE HEART FAILURE,ACUTE HYPOXIC RESPIRATORY Physical Exam Vital Signs: Temp Pulse Resp BP Pulse Ox 97.7 F 65 18 146/56 H 100 12/12/19 15:26 12/12/19 16:09 12/12/19 16:09 12/12/19 15:26 12/12/19 16:09 Intake & Output 12/11/19 12/12/19 12/13/19 06:59 06:59 06:59 Intake Total 530 0 Balance 530 0 Weight 60.3 kg 55.8 kg General appearance: PRESENT: no acute distress, cooperative, hard of hearing, thin Neck exam: ABSENT: JVD Respiratory exam: PRESENT: clear to auscultation stella, unlabored. ABSENT: a ccessory muscle use, retraction Cardiovascular exam: PRESENT: RRR, +S1, +S2. ABSENT: tachycardia GI/Abdominal exam: PRESENT: soft. ABSENT: rebound, rigid, tenderness Extremities exam: ABSENT: pedal edema Neurological exam: PRESENT: alert, awake, oriented to person. ABSENT: oriented to place, oriented to time Results Laboratory Results: 12/12/19 06:40 12/12/19 06:40 12/12/19 12/12/19 06:40 06:40 WBC 9.4 RBC 3.67 L Hgb 9.4 L Hct 29.6 L MCV 81 MCH 25.6 L MCHC 31.8 L RDW 16.7 H Plt Count 993 H Seg Neutrophils % 71.7 Sodium 136.9 L Potassium 4.8 Chloride 96 L Carbon Dioxide 34 H Anion Gap 7 BUN 25 H Creatinine 0.63 Est GFR ( Amer) > 60 Glucose 131 H Calcium 9.5 Magnesium 1.8 12/10/19 12/10/19 12/11/19 23:42 23:42 19:06 Troponin I 0.024 0.044 NT-Pro-B Natriuret Pep 2170 H 12/11/19 12/12/19 21:45 06:40 Troponin I 0.041 NT-Pro-B Natriuret Pep 7240 H Impressions: Chest X-Ray 12/11/19 00:15 IMPRESSION: 1. Asymmetric elevation the right hemidiaphragm with chronic changes of interstitial lung disease. 2. Subtle development of focal consolidation the left medial lung base concerning for pneumonia. Assessment and Plan - Diagnosis (1) Acute hypoxemic respiratory failure Is this a current diagnosis for this admission?: Yes (2) Acute on chronic diastolic CHF (congestive heart failure) Is this a current diagnosis for this admission?: Yes (3) Dysphagia Is this a current diagnosis for this admission?: Yes (4) Hyperglycemia due to type 2 diabetes mellitus Qualifiers: Diabetes mellitus usp insulin use: without usp use Qualified Code(s): E11.65 - Type 2 diabetes mellitus with hyperglycemia Is this a current diagnosis for this admission?: Yes (5) COPD (chronic obstructive pulmonary disease) Qualifiers: Chronic bronchitis type: unspecified Is this a current diagnosis for this admission?: Yes (6) Pneumonia Qualifiers: Pneumonia type: due to unspecified organism Laterality: unspecified laterality Lung location: unspecified part of lung Qualified Code(s): J18.9 - Pneumonia, unspecified organism Is this a current diagnosis for this admission?: Yes (7) Pulmonary hypertension Is this a current diagnosis for this admission?: Yes - Plan Summary Summary: Continue diuresis with IV Lasix twice a day. Losartan, spironolactone. Patient's echo few months ago shows grade 3/4 diastolic dysfunction as well as valvulopathy Had been deemed on prior hospitalization that she was not a good candidate for valvular replacement Continue sliding scale insulin, Accu-Cheks and metformin Successfully weaned down to nasal cannula today and appeared comfortable during encounter. Continue ceftriaxone and azithromycin for treatment of pneumonia. Rapid COVID-19 test was negative. Nurse voiced concerns for patient swallowing. Have scheduled modified barium swallow test for tomorrow. - Time Time Spent with patient: Less than 15 minutes
[2019-12-12] MEDS: ASPIRIN 81 MG TABLET, ENT COATED PO SCH (22:14)
[2019-12-12] MEDS: ROPINIROLE HCL 2 MG TABLET PO SCH (22:14)
[2019-12-12] MEDS: ATORVASTATIN CALCIUM 20 MG TABLET PO SCH (22:15)
[2019-12-12] MEDS: CEFTRIAXONE 1 GM/D5W RTU 1 GM/50 ML RTUPB IV SCH (22:15)
[2019-12-13] MEDS: INSULIN REG, HUMAN 100 UNIT/ML 3 ML VIAL (PYX) SUBCUT SCH ×6 (01:11→23:02)
[2019-12-13] MEDS: PANTOPRAZOLE SODIUM 40 MG TABLET.DR PO SCH (06:28)
[2019-12-13] MEDS: LEVOTHYROXINE SODIUM 0.15 MG TABLET PO SCH (06:28)
[2019-12-13] MEDS: FUROSEMIDE INJ/PF 20 MG/2 ML SDV IV SCH ×2 (06:30→18:42)
[2019-12-13] MEDS: HEPARIN SOD (PORCINE) 5,000 UNIT/ML 1 ML VIAL SUBCUT SCH ×3 (06:30→22:54)
[2019-12-13] MEDS: METFORMIN HCL 500 MG TABLET PO SCH ×2 (08:45→18:20)
--- NOTE | 2019-12-13 09:58 | ST Inp Modified Barium Swallow ---
Medical Diagnosis - Medical Diagnoses Medical Diagnosis Description & ICD-10 Code(s): dysphagia R13.10 - ICD-10 Tx Diagnosis Coding (1) Dysphagia ICD-10 Code(s): R13.10 - DYSPHAGIA, UNSPECIFIED (2) Acute respiratory failure ICD-10 Code(s): J96.00 - ACUTE RESPIRATORY FAILURE, UNSP W HYPOXIA OR HYPERCAPNIA (3) Pneumonia ICD-10 Code(s): J18.9 - PNEUMONIA, UNSPECIFIED ORGANISM Inpatient [facility] – [place], [place] - General Date: 12/13/19 - History -: Medical - per EMR: patient admitted 12/10 with shortness of breath, O2 saturation in the 40s. Chest ct showed possible pneumonia in left medial lung base. Prior medical history includes heart failure, hypertension, hyperlipidemia, COPD, diabetes, reflux, arthritis, dementia, breast cancer. Per nursing, the patient was demonstrating some difficulty managing her secretions, and noted "gurgling" quality when trying to give sip of water. Patient then made NPO (had regular diet order in place). Speech therapy previously evaluated this patient by MBSS in June for swallowing difficulties, patient was recommended to be on nectar thick liquids at that time. New MBSS recommended at this time to monitor for changes in swallow function. Medications: Medications Reviewed Allergies: Refer to medical record - Subjective Current Nutritional Means: NPO Current Symptoms: Coughing, Pneumonia, Hx of asp. pneumonia Pain: Patient reports, 0/5 - Objective Assessment: Upright, Left Lateral - Food Trials Food Trials Used: Thin liquids, [place] thick liquids, Pureed The Patient: Required Assist - Assessment Labial Function: Impaired - poor seal Lingual Function: Within Functional Limits Mandibular Function: Within Functional Limits Dentition: Edentulous Velo-Pharyngeal Function: Unremarkable Laryngeal Function: clear voicing - Pharyngeal Stage Initiation of Pharyngeal Stage: Delayed - bolus entered valleculae and into pyriform sinus, remaining for several seconds, before swallow was initiated with pudding trials. Patient required cue to swallow pudding trials as she did not spontaneously initiate swallow. With liquid trials, swallow still delayed, but not as drastically. Small sip of liquid following pudding assisted with triggering swallow and partially cleared pudding from valleculae and pyriform. Reduced Velo-Pharyngeal Closure: no Reduced Pressure Generation: Yes Reduced Tongue Base Retraction: Yes Pre-Swallowing Pooling in Valleculae: Significant Pre-Swallowing Pooling in Pyriforms: Significant Reduced Pharyngeal Peristalsis: Yes Multiple Swallows With: Ineffective Clearance Post Swallow Residuals in Valleculae: Significant Post Swallow Residuals in Pyriforms: Moderate Post Swallow Residuals: tongue-base, throughout pharynx - Impression/Summary Laryngeal Penetration: Yes - seen throughout the study with thin liquids and pudding trials, as well as with residuals from all textures after the swallow due to significant pharyngeal residue. Patient seen to cough x1 with deep penetration. Tracheal Aspiration: no - although not directly observed on this study, patient is at high risk of aspiration due to poor bolus clearance and significiantly impaired swallow initiation. Patient Presents With: Oral-Pharyngeal dysph., Severe Risk of Aspiration: Severe Risk of Nutritional Compromise: Severe - Recommendations Solid Diet Recommendations: Pureed Liquid Diet Recommendations: Thin - patient had fastest swallow trigger and least residue with thin liquids. Patient still at risk of aspiration however. Dysphagia Therapy with CHILDREN'S SERVICE SUPERVISOR: No - patient unable to follow therapist cues for strategy trials Recommended Techniques: Fully Upright During Meal - and for 30 minutes after, Med Crushed in Applesauce - or in thickened liquids (nectar), Small Bites and Sips Supervision: requires assistance Other Recommendations: Patient demonstrates risk of not maintaining nutritional and hydration needs by mouth. Diet recommendations made in this report would still place patient at high risk of aspiration. Physician may wish to discuss with patient and family options for alternative means of nutrition, or pleasure feeds. - Time Total Time: 30 Total Timed Minutes: 30
[2019-12-13 10:15] LABS: ANION GAP 10 (5-19); BLOOD UREA NITROGEN 28 mg/dL (7-20); CALCIUM 9.2 mg/dL (8.4-10.2); CARBON DIOXIDE 31 mmol/L (22-30); CHLORIDE 95 mmol/L (98-107); GLUCOSE 146 mg/dL (75-110); POTASSIUM 4.5 mmol/L (3.6-5.0)
--- NOTE | 2019-12-13 11:08 | RADIOLOGY REPORT (SQ) ---
EXAM DESCRIPTION: COOKIE SWALLOW IMAGES COMPLETED DATE/TIME: 12/13/2019 8:49 am REASON FOR STUDY: hx of aspiration COMPARISON: Cookie swallow 07/06/2019. TECHNIQUE: Videofluoroscopic swallowing examination was performed in conjunction with speech patholo gy. Videofluoroscopic imaging was obtained and reviewed and these are the findings: RADIATION DOSE: 5.50 minutes 1 images saved to PACS. LIMITATIONS: None FINDINGS: The patient was brought into the fluoro room and placed upright on a modified barium swall ow chair. The patient was then given multiple consistencies mixed with barium to swallow under live fluoroscopic video guidance. According to the Speech Pathologist there was deep laryngeal penetratio n seen with thin, nectar thick and pureed consistencies. Probable trace aspiration with residuals. Delay in swallow initiation noted. Please refer to the speech pathology report for further details. IMPRESSION: DEEP LARYNGEAL PENETRATION WITH THIN, NECTAR THICK AND PUREED CONSISTENCIES, WITH PROBAB LE TRACE ASPIRATION. . PLEASE SEE SPEECH PATHOLOGIST REPORT FOR OTHER FINDINGS AND RECOMMENDATIONS. COMMENT: NONE Quality ID [id number]: Final reports for procedures using fluoroscopy that document radiation exposure davy kvng, or exposure time and number of fluorographic images (if radiation exposure indices are not avail able) TECHNICAL DOCUMENTATION: JOB ID: [id number] 2010 [employer]- All Rights Reserved Reading location - IP/workstation name: [email or web address] [id number]
[2019-12-13] MEDS: ANASTROZOLE 1 MG TABLET PO SCH (12:13)
[2019-12-13] MEDS: SPIRONOLACTONE 25 MG TABLET PO SCH (12:13)
[2019-12-13] MEDS: FERROUS SULFATE 325 MG TABLET PO SCH (12:13)
[2019-12-13] MEDS: ESCITALOPRAM OXALATE 10 MG TABLET PO SCH (12:13)
[2019-12-13] MEDS: LOSARTAN POTASSIUM 50 MG TABLET PO SCH (12:13)
[2019-12-13] MEDS: AZITHROMYCIN 500 MG in DEXTROSE 5%-WATER 250 ML IV SCH (18:43)
--- NOTE | 2019-12-13 19:11 | PDOC PROGRESS REPORT ---
Subjective Progress Note for:: 12/13/19 Subjective:: Patient is doing well in terms of her breathing. On nasal cannula today. Otherwise she does not complain of anything at this time. Reason For Visit: CONGESTIVE HEART FAILURE,ACUTE HYPOXIC RESPIRATORY Physical Exam Vital Signs: Temp Pulse Resp BP Pulse Ox 98.0 F 64 18 114/55 L 97 12/13/19 16:00 12/13/19 18:00 12/13/19 18:00 12/13/19 16:00 12/13/19 18:00 Intake & Output 12/12/19 12/13/19 12/14/19 06:59 06:59 06:59 Intake Total 530 0 300 Balance 530 0 300 Weight 55.8 kg 54.6 kg General appearance: PRESENT: no acute distress, cooperative Neck exam: ABSENT: JVD Respiratory exam: PRESENT: clear to auscultation stella, unlabored. ABSENT: tachypnea, wheezes Cardiovascular exam: PRESENT: RRR, +S1, +S2, systolic murmur. ABSENT: tac hycardia GI/Abdominal exam: PRESENT: soft. ABSENT: rebound, rigid, tenderness Neurological exam: PRESENT: alert, awake Results Laboratory Results: 12/12/19 06:40 12/13/19 09:10 12/13/19 09:10 Sodium 136.0 L Potassium 4.5 Chloride 95 L Carbon Dioxide 31 H Anion Gap 10 BUN 28 H Creatinine 0.70 Est GFR ( Amer) > 60 Glucose 146 H Calcium 9.2 Magnesium 1.8 12/10/19 12/10/19 12/11/19 23:42 23:42 19:06 Troponin I 0.024 0.044 NT-Pro-B Natriuret Pep 2170 H 12/11/19 12/12/19 12/13/19 21:45 06:40 09:10 Troponin I 0.041 NT-Pro-B Natriuret Pep 7240 H 3200 H Impressions: Chest X-Ray 12/11/19 00:15 IMPRESSION: 1. Asymmetric elevation the right hemidiaphragm with chronic changes of interstitial lung disease. 2. Subtle development of focal consolidation the left medial lung base concerning for pneumonia. Modified Barium Swallow 12/13/19 00:00 IMPRESSION: DEEP LARYNGEAL PENETRATION WITH THIN, NECTAR THICK AND PUREED CONSISTENCIES, WITH PROBABLE TRACE ASPIRATION. . PLEASE SEE SPEECH PATHOLOGIST REPORT FOR OTHER FINDINGS AND RECOMMENDATIONS. 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 Qualified Code(s): E11.65 - Type 2 diabetes mellitus with hyperglycemia Is this a current diagnosis for this admission?: Yes (5) COPD (chronic obstructive pulmonary disease) Qualifiers: Chronic bronchitis type: unspecified Is this a current diagnosis for this admission?: Yes (6) Pneumonia Qualifiers: Pneumonia type: due to unspecified organism Laterality: unspecified laterality Lung location: unspecified part of lung Qualified Code(s): J18.9 - Pneumonia, unspecified organism Is this a current diagnosis for this admission?: Yes (7) Pulmonary hypertension Is this a current diagnosis for this admission?: Yes - Plan Summary Summary: Continue diuresis with IV Lasix twice a day. Losartan, spironolactone. Patient's echo few months ago shows grade 3/4 diastolic dysfunction as well as valvulopathy Had been deemed on prior hospitalization that she was not a good candidate for valvular replacement Continue sliding scale insulin, Accu-Cheks and metformin Successfully weaned down to nasal cannula today and appeared comfortable during encounter. Continue ceftriaxone and azithromycin for treatment of pneumonia. Rapid COVID-19 test was negative. Nurse voiced concerns for patient swallowing. Have scheduled modified barium swallow test for tomorrow. 12/13/2019 Maintain IV Lasix twice a day, losartan and spironolactone Continue treatment with ceftriaxone and azithromycin for potential pneumonia. Patient underwent modified barium swallow test today which noted the patient was having penetration to the level of the vocal cord but no clear aspiration with thin liquids. However the speech pathologist voiced concern about patient eating adequately to meet nutritional requirements as she tended to hold food in her throat for long periods of time without progressing with the swallowing process. Diet has been adjusted. I will discuss with patient's about if he wants to pursue alternative means of nutrition to meet her nutritional goals. Terms of respiration, patient is currently on 3 L nasal cannula will continue to try to wean. - Time Time Spent with patient: Less than 15 minutes
[2019-12-13] MEDS: ROPINIROLE HCL 2 MG TABLET PO SCH (22:54)
[2019-12-13] MEDS: CEFTRIAXONE 1 GM/D5W RTU 1 GM/50 ML RTUPB IV SCH (22:54)
[2019-12-13] MEDS: ASPIRIN 81 MG TABLET, ENT COATED PO SCH (22:54)
[2019-12-13] MEDS: ATORVASTATIN CALCIUM 20 MG TABLET PO SCH (22:54)
[2019-12-14] MEDS: INSULIN REG, HUMAN 100 UNIT/ML 3 ML VIAL (PYX) SUBCUT SCH ×3 (06:45→17:31)
[2019-12-14] MEDS: LEVOTHYROXINE SODIUM 0.15 MG TABLET PO SCH (06:46)
[2019-12-14] MEDS: FUROSEMIDE INJ/PF 20 MG/2 ML SDV IV SCH ×2 (06:46→17:42)
[2019-12-14] MEDS: HEPARIN SOD (PORCINE) 5,000 UNIT/ML 1 ML VIAL SUBCUT SCH ×3 (06:46→21:19)
[2019-12-14] MEDS: PANTOPRAZOLE SODIUM 40 MG TABLET.DR PO SCH (06:46)
[2019-12-14 08:09] LABS: ABSOLUTE EOSINOPHILS # (AUTO) 0.1 10^3/uL (0.0-0.6); ABSOLUTE LYMPHOCYTES (AUTO) 1.2 10^3/uL (0.5-4.7); ABSOLUTE MONOCYTES (AUTO) 1.3 10^3/uL (0.1-1.4); ABSOLUTE NEUT (AUTO) 5.6 10^3/uL (1.7-8.2); BASOPHILS % (AUTO) 0.5 % (0-2); EOSINOPHILS % (AUTO) 1.6 % (0-6); HEMATOCRIT 30.7 % (36.0-47.0); HEMOGLOBIN 9.9 g/dL (12.0-15.5); LYMPHOCYTES % (AUTO) 14.8 % (13-45); MEAN CORPUSCULAR HEMOGLOBIN 25.7 pg (27.0-33.4); MEAN CORPUSCULAR HGB CONC 32.2 g/dL (32.0-36.0); MEAN CORPUSCULAR VOLUME 80 fl (80-97); MONOCYTES % (AUTO) 15.7 % (3-13); PLATELET COUNT 900 10^3/uL (150-450); RED BLOOD COUNT 3.84 10^6/uL (3.72-5.28); RED CELL DISTRIBUTION WIDTH 16.7 % (11.5-14.0); SEGMENTED NEUTROPHILS % (AUTO) 67.4 % (42-78); TOTAL CELLS COUNTED % (AUTO) 100 %; WHITE BLOOD COUNT 8.3 10^3/uL (4.0-10.5)
[2019-12-14 08:34] LABS: ANION GAP 8 (5-19); BLOOD UREA NITROGEN 38 mg/dL (7-20); CALCIUM 9.2 mg/dL (8.4-10.2); CARBON DIOXIDE 34 mmol/L (22-30); CHLORIDE 95 mmol/L (98-107); GLUCOSE 176 mg/dL (75-110); POTASSIUM 4.5 mmol/L (3.6-5.0)
[2019-12-14] MEDS: METFORMIN HCL 500 MG TABLET PO SCH ×2 (09:00→17:00)
[2019-12-14] MEDS: SPIRONOLACTONE 25 MG TABLET PO SCH (09:18)
[2019-12-14] MEDS: LOSARTAN POTASSIUM 50 MG TABLET PO SCH (09:19)
[2019-12-14] MEDS: ESCITALOPRAM OXALATE 10 MG TABLET PO SCH (09:24)
[2019-12-14] MEDS: FERROUS SULFATE 325 MG TABLET PO SCH (09:24)
[2019-12-14] MEDS: ANASTROZOLE 1 MG TABLET PO SCH (10:20)
--- NOTE | 2019-12-14 16:53 | PDOC PROGRESS REPORT ---
Subjective Progress Note for:: 12/14/19 Subjective:: Patient has no complaints today. Reason For Visit: CONGESTIVE HEART FAILURE,ACUTE HYPOXIC RESPIRATORY Physical Exam Vital Signs: Temp Pulse Resp BP Pulse Ox 97.4 F 73 15 139/66 H 95 12/14/19 14:00 12/14/19 14:00 12/14/19 14:00 12/14/19 14:00 12/14/19 14:00 Intake & Output 12/13/19 12/14/19 12/15/19 06:59 06:59 06:59 Intake Total 0 821 Balance 0 821 Weight 54.6 kg 53.8 kg General appearance: PRESENT: no acute distress, cooperative Neck exam: ABSENT: JVD Respiratory exam: PRESENT: clear to auscultation stella, unlabored. ABSENT: tachypnea, wheezes Cardiovascular exam: PRESENT: diastolic murmur, +S1, +S2, systolic murmur GI/Abdominal exam: PRESENT: soft. ABSENT: rebound, rigid, tenderness Neurological exam: PRESENT: alert, awake, oriented to person. ABSENT: oriented to place, oriented to time, oriented to situation Results Laboratory Results: 12/14/19 07:30 12/14/19 07:30 12/14/19 12/14/19 07:30 07:30 WBC 8.3 RBC 3.84 Hgb 9.9 L Hct 30.7 L MCV 80 MCH 25.7 L MCHC 32.2 RDW 16.7 H Plt Count 900 H Seg Neutrophils % 67.4 Sodium 136.6 L Potassium 4.5 Chloride 95 L Carbon Dioxide 34 H Anion Gap 8 BUN 38 H Creatinine 0.66 Est GFR ( Amer) > 60 Glucose 176 H Calcium 9.2 12/10/19 12/10/19 12/11/19 23:42 23:42 19:06 Troponin I 0.024 0.044 NT-Pro-B Natriuret Pep 2170 H 12/11/19 12/12/19 12/13/19 21:45 06:40 09:10 Troponin I 0.041 NT-Pro-B Natriuret Pep 7240 H 3200 H Impressions: Chest X-Ray 12/11/19 00:15 IMPRESSION: 1. Asymmetric elevation the right hemidiaphragm with chronic changes of interstitial lung disease. 2. Subtle development of focal consolidation the left medial lung base concerning for pneumonia. Modified Barium Swallow 12/13/19 00:00 IMPRESSION: DEEP LARYNGEAL PENETRATION WITH THIN, NECTAR THICK AND PUREED CONSISTENCIES, WITH PROBABLE TRACE ASPIRATION. . PLEASE SEE SPEECH PATHOLOGIST REPORT FOR OTHER FINDINGS AND RECOMMENDATIONS. Assessment and Plan - Diagnosis (1) Acute hypoxemic respiratory failure Is this a current diagnosis for this admission?: Yes (2) Acute on chronic diastolic CHF (congestive heart failure) Is this a current diagnosis for this admission?: Yes (3) Dysphagia Is this a current diagnosis for this admission?: Yes (4) Hyperglycemia due to type 2 diabetes mellitus Qualifiers: Diabetes mellitus intermediate project manager insulin use: without intermediate project manager use Qualified Code(s): E11.65 - Type 2 diabetes mellitus with hyperglycemia Is this a current diagnosis for this admission?: Yes (5) COPD (chronic obstructive pulmonary disease) Qualifiers: Chronic bronchitis type: unspecified Is this a current diagnosis for this admission?: Yes (6) Pneumonia Qualifiers: Pneumonia type: due to unspecified organism Laterality: unspecified laterality Lung location: unspecified part of lung Qualified Code(s): J18.9 - Pneumonia, unspecified organism Is this a current diagnosis for this admission?: Yes (7) Pulmonary hypertension Is this a current diagnosis for this admission?: Yes - Plan Summary Summary: Continue diuresis with IV Lasix twice a day. Losartan, spironolactone. Patient's echo few months ago shows grade 3/4 diastolic dysfunction as well as valvulopathy Had been deemed on prior hospitalization that she was not a good candidate for valvular replacement Continue sliding scale insulin, Accu-Cheks and metformin Successfully weaned down to nasal cannula today and appeared comfortable during encounter. Continue ceftriaxone and azithromycin for treatment of pneumonia. Rapid COVID-19 test was negative. Nurse voiced concerns for patient swallowing. Have scheduled modified barium swallow test for tomorrow. 12/13/2019 Maintain IV Lasix twice a day, losartan and spironolactone Continue treatment with ceftriaxone and azithromycin for potential pneumonia. Patient underwent modified barium swallow test today which noted the patient was having penetration to the level of the vocal cord but no clear aspiration with thin liquids. However the speech pathologist voiced concern about patient eating adequately to meet nutritional requirements as she tended to hold food in her throat for long periods of time without progressing with the swallowing process. Diet has been adjusted. I will discuss with patient's about if he wants to pursue alternative means of nutrition to meet her nutritional goals. Terms of respiration, patient is currently on 3 L nasal cannula will continue to try to wean. 12/14/2019 Continue IV Lasix, losartan and spironolactone. I will add a dose of Diamox given metabolic alkalosis. We will likely also discontinue IV diuresis by tomorrow. Continue to wean off oxygen Continue ceftriaxone and azithromycin We will continue to monitor patient Discharge planning consulted for SNF placement as patient's has voiced concerns about adequately taking care of patient by himself and he is requesting SNF. I believe she should qualify for for SNF given her significant debility and dementia. Patient has been evaluated by physical therapist. As noted before, patient showed penetration on modified barium swallow test all the way to the vocal cords but no aspiration below the vocal cords and has been recommended a diet. Despite initial concerns about patient's nutritional intake, I have been informed by nurse that patient has eaten all of her breakfast and all of her lunch today and as such nutritional intake seems adequate. I have discussed plan with patient's Dex - Time Time Spent with patient: Less than 15 minutes
[2019-12-14] MEDS ORDERED: ACETAZOLAMIDE 250 MG TABLET PO ONE (17:30)
[2019-12-14] MEDS: AZITHROMYCIN 500 MG in DEXTROSE 5%-WATER 250 ML IV SCH (17:41)
[2019-12-14] MEDS: ASPIRIN 81 MG TABLET, ENT COATED PO SCH (21:17)
[2019-12-14] MEDS: ATORVASTATIN CALCIUM 20 MG TABLET PO SCH (21:17)
[2019-12-14] MEDS: ROPINIROLE HCL 2 MG TABLET PO SCH (21:17)
[2019-12-14] MEDS: CEFTRIAXONE 1 GM/D5W RTU 1 GM/50 ML RTUPB IV SCH (21:18)
[2019-12-15] MEDS: INSULIN REG, HUMAN 100 UNIT/ML 3 ML VIAL (PYX) SUBCUT SCH ×2 (00:05→06:55)
[2019-12-15 04:50] LABS: ANION GAP 9 (5-19); BLOOD UREA NITROGEN 38 mg/dL (7-20); CALCIUM 9.1 mg/dL (8.4-10.2); CARBON DIOXIDE 28 mmol/L (22-30); CHLORIDE 98 mmol/L (98-107); GLUCOSE 155 mg/dL (75-110); POTASSIUM 4.1 mmol/L (3.6-5.0)
[2019-12-15] MEDS: HEPARIN SOD (PORCINE) 5,000 UNIT/ML 1 ML VIAL SUBCUT SCH (06:25)
[2019-12-15] MEDS: FUROSEMIDE INJ/PF 20 MG/2 ML SDV IV SCH (06:26)
[2019-12-15] MEDS: PANTOPRAZOLE SODIUM 40 MG TABLET.DR PO SCH (06:27)
[2019-12-15] MEDS: LEVOTHYROXINE SODIUM 0.15 MG TABLET PO SCH (06:27)
[2019-12-15] MEDS: FERROUS SULFATE 325 MG TABLET PO SCH (09:06)
[2019-12-15] MEDS: LOSARTAN POTASSIUM 50 MG TABLET PO SCH (09:43)
[2019-12-15] MEDS: METFORMIN HCL 500 MG TABLET PO SCH (09:43)
[2019-12-15] MEDS: SPIRONOLACTONE 25 MG TABLET PO SCH (09:43)
[2019-12-15] MEDS: ESCITALOPRAM OXALATE 10 MG TABLET PO SCH (09:43)
[2019-12-15] MEDS: ANASTROZOLE 1 MG TABLET PO SCH (09:44)
[2019-12-15] MEDS ORDERED: FUROSEMIDE 20 MG TABLET PO SCH (10:00)
[2019-12-15] MEDS ORDERED: INSULIN REG, HUMAN 100 UNIT/ML 3 ML VIAL (PYX) SUBCUT SCH (11:00)
--- NOTE | 2019-12-15 11:15 | PDOC TRANSFER SUMMARY ---
Impression - Admit/DC Date/PCP Admission Date/Primary Care Provider: 12/11/19 09:19 CORAZON CARRION PA-C Discharge Date: 12/15/19 - Discharge Diagnosis (1) Acute hypoxemic respiratory failure Is this a current diagnosis for this admission?: Yes (2) Acute on chronic diastolic CHF (congestive heart failure) Is this a current diagnosis for this admission?: Yes (3) Dysphagia Is this a current diagnosis for this admission?: Yes (4) Hyperglycemia due to type 2 diabetes mellitus Is this a current diagnosis for this admission?: Yes (5) COPD (chronic obstructive pulmonary disease) Is this a current diagnosis for this admission?: Yes (6) Pneumonia Is this a current diagnosis for this admission?: Yes (7) Pulmonary hypertension Is this a current diagnosis for this admission?: Yes (8) Iron deficiency anemia Is this a current diagnosis for this admission?: Yes (9) Dementia Is this a current diagnosis for this admission?: Yes (10) Valvular heart disease Is this a current diagnosis for this admission?: Yes - Assessment Summary: Continue diuresis with IV Lasix twice a day. Losartan, spironolactone. Patient's echo few months ago shows grade 3/4 diastolic dysfunction as well as valvulopathy Had been deemed on prior hospitalization that she was not a good candidate for valvular replacement Continue sliding scale insulin, Accu-Cheks and metformin Successfully weaned down to nasal cannula today and appeared comfortable during encounter. Continue ceftriaxone and azithromycin for treatment of pneumonia. Rapid COVID-19 test was negative. Nurse voiced concerns for patient swallowing. Have scheduled modified barium swallow test for tomorrow. 12/13/2019 Maintain IV Lasix twice a day, losartan and spironolactone Continue treatment with ceftriaxone and azithromycin for potential pneumonia. Patient underwent modified barium swallow test today which noted the patient was having penetration to the level of the vocal cord but no clear aspiration with thin liquids. However the speech pathologist voiced concern about patient eating adequately to meet nutritional requirements as she tended to hold food in her throat for long periods of time without progressing with the swallowing process. Diet has been adjusted. I will discuss with patient's about if he wants to pursue alternative means of nutrition to meet her nutritional goals. Terms of respiration, patient is currently on 3 L nasal cannula will continue to try to wean. 12/14/2019 Continue IV Lasix, losartan and spironolactone. I will add a dose of Diamox given metabolic alkalosis. We will likely also discontinue IV diuresis by tomorrow. Continue to wean off oxygen Continue ceftriaxone and azithromycin We will continue to monitor patient Discharge planning consulted for SNF placement as patient's has voiced concerns about adequately taking care of patient by himself and he is requesting SNF. I believe she should qualify for for SNF given her significant debility and dementia. Patient has been evaluated by physical therapist. As noted before, patient showed penetration on modified barium swallow test all the way to the vocal cords but no aspiration below the vocal cords and has been recommended a diet. Despite initial concerns about patient's nutritional intake, I have been informed by nurse that patient has eaten all of her breakfast and all of her lunch today and as such nutritional intake seems adequate. I have discussed plan with patient's Dex 12/15/2019 Patient is now completely off oxygen maintaining SPO2 in the low 90s to mid 90s on room air at rest. She is very well awake and in no evidence of respiratory distress whatsoever. Patient ate virtually 100% of her meals yesterday and ate her breakfast comfortably today. Patient is on a pured diet with thin liquids. I believe this patient's episode of acute on chronic CHF was likely exacerbated by poor sodium restriction and diet as, during prior hospitalization, we have noted putting lots of salt in patient's food while she was in the hospital. Plan is to continue patient on p.o. Lasix, losartan and spironolactone. In terms of her Subtle left-sided pneumonia, patient will be discharged on cefdinir for 4 more days. COVID-19 test was negative. Patient has not spiked any fevers. - Additional Information Resuscitation Status: Do Not Resuscitate Referrals: CORAZON CARRION PA-C [Primary Care Provider] - Follow up as needed Prescriptions: Cefdinir 300 mg PO Q12 4 Days #8 capsule Home Medications: Anastrozole [Arimidex 1 mg Tablet] 1 mg PO DAILY 07/11/19 Aspirin [Ecotrin 81 mg EC Tablet] 81 mg PO QHS 07/11/19 Atorvastatin Calcium [Lipitor 20 mg Tablet] 20 mg PO QHS 07/11/19 Escitalopram Oxalate [Lexapro] 20 mg PO QPM 07/11/19 Levothyroxine Sodium [Synthroid 0.15 mg Tablet] 0.15 mg PO Q6AM 07/11/19 Losartan Potassium [Cozaar] 100 mg PO DAILY 07/11/19 Metformin HCl [Glucophage 500 mg Tablet] 500 mg PO BID 07/11/19 Carvedilol [Coreg 12.5 mg Tablet] 12.5 mg PO Q12 10/08/19 Pantoprazole Sodium [Protonix [address] Tablet] 40 mg PO BID@0600,1700 #60 tablet.dr 10/12/19 Spironolactone [Aldactone 25 mg Tablet] 25 mg PO DAILY #60 tablet 10/12/19 Furosemide [Lasix 20 mg Tablet] 20 mg PO BID 12/11/19 Cefdinir 300 mg PO Q12 4 Days #8 capsule 12/15/19 Ferrous Sulfate [Feosol 325 mg Tablet] 325 mg PO DAILY tablet 12/15/19 Ropinirole HCl [Requip 2 mg Tablet] 2 mg PO QHS tablet 12/15/19 History of Present Illiness History of Present Illness: According to admitting provider:SANDY DANG is a 89 year old female with multiple admissions for heart failure. She was on BiPAP so it was difficult to get much of a history and the information is more from the emergency department physician records and her last history and physical from her September admission. Evidently related the patient was having increased shortness of breath her h usband will be a nurse. Upon their arrival they state that the patient does not have oxygen at home. Her saturations were 47% on room air. Nonrebreather mask at 15 L/min was placed on the patient and her O2 sats began to increase. They were 79% at last check and transfer to the emergency department was carried out. In the emergency department she was placed on BiPAP but 100% with saturations reaching 100%. We cannot taper the FiO2 to keep her saturations between 90 and 94%. She does have a past medical history of diastolic heart failure, hypertension and hyperlipidemia. She also has a history of chronic obstructive pulmonary disease and pneumonia. She is diabetic. She is treated for history of breast cancer. She has reflux, arthritis and dementia. She does have bleeding tendencies and is typically anemic. She is currently resting on BiPAP. She is a little restless. Physical Exam Vital Signs: Temp Pulse Resp BP Pulse Ox 97.3 F 70 16 122/59 L 95 12/15/19 07:51 12/15/19 07:51 12/15/19 07:51 12/15/19 07:51 12/15/19 07:51 Intake & Output 12/14/19 12/15/19 12/16/19 06:59 06:59 06:59 Intake Total 821 950 Balance 821 950 Weight 53.8 kg 53.1 kg General appearance: PRESENT: no acute distress, cooperative, hard of hearing Neck exam: ABSENT: JVD Respiratory exam: PRESENT: symmetrical, unlabored. ABSENT: accessory muscle use, retraction, tachypnea, wheezes Cardiovascular exam: PRESENT: diastolic murmur, RRR, +S1, +S2, systolic murmur. ABSENT: tachycardia GI/Abdominal exam: PRESENT: soft. ABSENT: rebound, rigid, tenderness Neurological exam: PRESENT: alert, awake, oriented to person. ABSENT: oriented to place, oriented to time, oriented to situation, aphasic Psychiatric exam: ABSENT: agitated, anxious Results Laboratory Results: WBC 8.3 10^3/uL (4.0-10.5) 12/14/19 07:30 RBC 3.84 10^6/uL (3.72-5.28) 12/14/19 07:30 Hgb 9.9 g/dL (12.0-15.5) L 12/14/19 07:30 Hct 30.7 % (36.0-47.0) L 12/14/19 07:30 MCV 80 fl (80-97) 12/14/19 07:30 MCH 25.7 pg (27.0-33.4) L 12/14/19 07:30 MCHC 32.2 g/dL (32.0-36.0) 12/14/19 07:30 RDW 16.7 % (11.5-14.0) H 12/14/19 07:30 Plt Count 900 10^3/uL (150-450) H 12/14/19 07:30 Lymph % (Auto) 14.8 % (13-45) 12/14/19 07:30 Mcnairy % (Auto) 15.7 % (3-13) H 12/14/19 07:30 Eos % (Auto) 1.6 % (0-6) 12/14/19 07:30 Baso % (Auto) 0.5 % (0-2) 12/14/19 07:30 Absolute Neuts (auto) 5.6 10^3/uL (1.7-8.2) 12/14/19 07:30 Absolute Lymphs (auto) 1.2 10^3/uL (0.5-4.7) 12/14/19 07:30 Absolute Monos (auto) 1.3 10^3/uL (0.1-1.4) 12/14/19 07:30 Absolute Eos (auto) 0.1 10^3/uL (0.0-0.6) 12/14/19 07:30 Absolute Basos (auto) 0.0 10^3/uL (0.0-0.2) 12/14/19 07:30 Seg Neutrophils % 67.4 % (42-78) 12/14/19 07:30 Sodium 135.3 mmol/L (137-145) L 12/15/19 04:19 Potassium 4.1 mmol/L (3.6-5.0) 12/15/19 04:19 Chloride 98 mmol/L (98-107) 12/15/19 04:19 Carbon Dioxide 28 mmol/L (22-30) 12/15/19 04:19 Anion Gap 9 (5-19) 12/15/19 04:19 BUN 38 mg/dL (7-20) H 12/15/19 04:19 Creatinine 0.82 mg/dL (0.52-1.25) 12/15/19 04:19 Est GFR ( Amer) > 60 (>60) 12/15/19 04:19 Est GFR (MDRD) Non-Af > 60 (>60) 12/15/19 04:19 Glucose 155 mg/dL (75-110) H 12/15/19 04:19 POC Glucose 144 mg/dL (70-110) H 12/15/19 06:18 Calcium 9.1 mg/dL (8.4-10.2) 12/15/19 04:19 Magnesium 2.0 mg/dL (1.6-2.3) 12/15/19 04:19 Total Bilirubin 0.2 mg/dL (0.2-1.3) 12/10/19 23:42 Direct Bilirubin 0.0 mg/dL (0.0-0.4) 12/10/19 23:42 Neonat Total Bilirubin Not Reportable 12/10/19 23:42 Neonat Direct Bilirubin Not Reportable 12/10/19 23:42 Neonat Indirect Bili Not Reportable 12/10/19 23:42 AST 49 U/L (14-36) H 12/10/19 23:42 ALT 27 U/L (<35) 12/10/19 23:42 Alkaline Phosphatase 230 U/L (38-126) H 12/10/19 23:42 Troponin I 0.041 ng/mL 12/11/19 21:45 NT-Pro-B Natriuret Pep 3200 pg/mL (<450) H 12/13/19 09:10 Total Protein 6.6 g/dL (6.3-8.2) 12/10/19 23:42 Albumin 3.4 g/dL (3.5-5.0) L 12/10/19 23:42 SARS-CoV-2 (PCR) NEGATIVE (NEGATIVE) 12/11/19 12:45 12/10/19 12/10/19 12/11/19 23:42 23:42 19:06 Troponin I 0.024 0.044 NT-Pro-B Natriuret Pep 2170 H 12/11/19 12/12/19 12/13/19 21:45 06:40 09:10 Troponin I 0.041 NT-Pro-B Natriuret Pep 7240 H 3200 H Impressions: Chest X-Ray 12/11/19 00:15 IMPRESSION: 1. Asymmetric elevation the right hemidiaphragm with chronic changes of interstitial lung disease. 2. Subtle development of focal consolidation the left medial lung base concerning for pneumonia. Modified Barium Swallow 12/13/19 00:00 IMPRESSION: DEEP LARYNGEAL PENETRATION WITH THIN, NECTAR THICK AND PUREED CONSISTENCIES, WITH PROBABLE TRACE ASPIRATION. . PLEASE SEE SPEECH PATHOLOGIST REPORT FOR OTHER FINDINGS AND RECOMMENDATIONS. Plan Time Spent: Less than 30 Minutes Stroke Is this a Stroke Patient?: No Acute Heart Failure - Is this a Heart Failure Patient?: Yes Documentation of LVEF assessment?: Yes LVEF: LVEF Greater Than 40% Anticoagulant Therapy: N/A
[2019-12-15 12:36] VITALS: BP 140/64
== END 2019-12-15 13:43 | DRG 291 ==
LOC: ER 23:40 → EH 12-11 09:19 → 5 12-11 17:02
PROVIDERS: ADMIT Hospitalist; ATTEND Internal Medicine
PROC: 5A09357 Assistance with Respiratory Ventilation, Less than 24 Consecutive Hours, Continuous Positive Airway Pressure (ICD-10-PCS; principal; 2019-12-11)
DX: I11.0 Hypertensive heart disease with heart failure (principal); J96.01 Acute respiratory failure with hypoxia; J18.9 Pneumonia, unspecified organism; I38 Endocarditis, valve unspecified; I50.33 Acute on chronic diastolic (congestive) heart failure; I27.20 Pulmonary hypertension, unspecified; F03.90 Unspecified dementia, unspecified severity, without behavioral disturbance, psychotic disturbance, mood disturbance, and anxiety; D50.9 Iron deficiency anemia, unspecified; E11.65 Type 2 diabetes mellitus with hyperglycemia; J44.9 Chronic obstructive pulmonary disease, unspecified; R53.81 Other malaise; E78.5 Hyperlipidemia, unspecified; K21.9 Gastro-esophageal reflux disease without esophagitis; E03.9 Hypothyroidism, unspecified; I35.0 Nonrheumatic aortic (valve) stenosis; E87.5 Hyperkalemia; M47.819 Spondylosis without myelopathy or radiculopathy, site unspecified; I45.10 Unspecified right bundle-branch block; Z20.828 Contact with and (suspected) exposure to other viral communicable diseases; Z66 Do not resuscitate; R13.10 Dysphagia, unspecified; Z79.84 Long term (current) use of oral hypoglycemic drugs; Z79.899 Other long term (current) drug therapy; Z79.82 Long term (current) use of aspirin; Z85.3 Personal history of malignant neoplasm of breast; Z87.891 Personal history of nicotine dependence; Z82.49 Family history of ischemic heart disease and other diseases of the circulatory system; Z88.8 Allergy status to other drugs, medicaments and biological substances; Z86.73 Personal history of transient ischemic attack (TIA), and cerebral infarction without residual deficits; Z87.01 Personal history of pneumonia (recurrent); Z90.11 Acquired absence of right breast and nipple
CPT/HCPCS: 36415; 71045; 74230; 80048; 80053; 82962; 83735; 83880; 84484; 85025; 87040; 87635; 93005; 93010; 94660; 96374; 99291; 99292; C9803; J0456; J0696; J1644; J1815; J1940; J3490; J7060

== ENCOUNTER → 2020-01-22 | Outpatient (CLI) | payer MEDICARE, OTHER ==
--- NOTE | 2020-01-22 17:31 | RADIOLOGY REPORT (SQ) ---
EXAM DESCRIPTION: CHEST PA/LATERAL IMAGES COMPLETED DATE/TIME: 01/22/2020 4:49 pm REASON FOR STUDY: ACUTE BRONCHITIS, UNSPECIFIED COMPARISON: None. EXAM PARAMETERS: NUMBER OF VIEWS: two views TECHNIQUE: Digital Frontal and Lateral radiographic views of the chest acquired. RADIATION DOSE: NA LIMITATIONS: none FINDINGS: LUNGS AND PLEURA: Chronic interstitial changes. No acute infiltrate or effusion. Elevate d right hemidiaphragm. MEDIASTINUM AND HILAR STRUCTURES: No masses or contour abnormalities. HEART AND VASCULAR STRUCTURES: Cardiomegaly. No chayito pulmonary edema. BONES: No acute findings. HARDWARE: None in the chest. OTHER: No other significant finding. IMPRESSION: Cardiomegaly without pulmonary edema. Chronic lung changes. TECHNICAL DOCUMENTATION: JOB ID: [id number] [employer]- All Rights Reserved Reading location - IP/workstation name: [email or web address]
== END ==
LOC: RAD 15:49
PROVIDERS: ATTEND Internal Medicine Pulmonary Disease
DX: J20.9 Acute bronchitis, unspecified (principal); I51.7 Cardiomegaly
CPT/HCPCS: 71046

== ENCOUNTER 2020-01-28 12:23 | Observation (INO) | payer MEDICARE, OTHER ==
[2020-01-28 12:53] LABS: ABSOLUTE BASOPHILS # (AUTO) 0.1 10^3/uL (0.0-0.2); ABSOLUTE EOSINOPHILS # (AUTO) 0.2 10^3/uL (0.0-0.6); ABSOLUTE LYMPHOCYTES (AUTO) 1.1 10^3/uL (0.5-4.7); ABSOLUTE MONOCYTES (AUTO) 1.1 10^3/uL (0.1-1.4); ABSOLUTE NEUT (AUTO) 5.1 10^3/uL (1.7-8.2); BASOPHILS % (AUTO) 0.9 % (0-2); EOSINOPHILS % (AUTO) 2.5 % (0-6); HEMATOCRIT 27.5 % (36.0-47.0); HEMOGLOBIN 8.9 g/dL (12.0-15.5); LYMPHOCYTES % (AUTO) 14.7 % (13-45); MEAN CORPUSCULAR HEMOGLOBIN 24.7 pg (27.0-33.4); MEAN CORPUSCULAR HGB CONC 32.4 g/dL (32.0-36.0); MEAN CORPUSCULAR VOLUME 76 fl (80-97); MONOCYTES % (AUTO) 15.1 % (3-13); PLATELET COUNT 925 10^3/uL (150-450); RED CELL DISTRIBUTION WIDTH 17.3 % (11.5-14.0); SEGMENTED NEUTROPHILS % (AUTO) 66.8 % (42-78); TOTAL CELLS COUNTED % (AUTO) 100 %; WHITE BLOOD COUNT 7.6 10^3/uL (4.0-10.5)
[2020-01-28 13:15] LABS: ALBUMIN 3.5 g/dL (3.5-5.0); ALKALINE PHOSPHATASE 208 U/L (38-126); ANION GAP 8 (5-19); ASPARTATE AMINO TRANSFERASE 35 U/L (14-36); BILIRUBIN,TOTAL 0.3 mg/dL (0.2-1.3); BLOOD UREA NITROGEN 37 mg/dL (7-20); CALCIUM 9.3 mg/dL (8.4-10.2); CARBON DIOXIDE 28 mmol/L (22-30); CHLORIDE 100 mmol/L (98-107); GLUCOSE 126 mg/dL (75-110); TOTAL PROTEIN 6.9 g/dL (6.3-8.2)
[2020-01-28 13:16] LABS: ALCOHOL < 10 mg/dL (NONE DETECTED)
[2020-01-28 13:17] LABS: POTASSIUM 6.2 mmol/L (3.6-5.0)
[2020-01-28 13:36] LABS: APPEARANCE,URINE CLEAR; BILIRUBIN,URINE NEGATIVE (NEGATIVE); COLOR,URINE STRAW; GLUCOSE, URINE NEGATIVE (NEGATIVE); KETONES,URINE NEGATIVE (NEGATIVE); LEUKOCYTE ESTERASE,URINE NEGATIVE (NEGATIVE); NITRITE,URINE NEGATIVE (NEGATIVE); PROTEIN,URINE NEGATIVE (NEGATIVE); URINE SPECIFIC GRAVITY 1.009; UROBILINOGEN,URINE NEGATIVE mg/dL (<2.0)
[2020-01-28] MEDS ORDERED: SODIUM POLYSTYRENE SULFONATE 15 GM/60 ML PO ONE (13:51)
[2020-01-28 13:56] LABS: URINE AMPHETAMINES SCREEN NEGATIVE; URINE BARBITURATES SCREEN NEGATIVE; URINE BENZODIAZEPINES SCREEN NEGATIVE; URINE COCAINE SCREEN NEGATIVE; URINE MARIJUANA (THC) SCREEN NEGATIVE; URINE METHADONE SCREEN NEGATIVE; URINE PHENCYCLIDINE SCREEN NEGATIVE
--- NOTE | 2020-01-28 14:19 | ER Document Report ---
ED General - General Chief Complaint: Altered Mental Status Stated Complaint: AMD Time Seen by Provider: 01/28/20 13:49 Primary Care Provider: CORAZON CARRION PA-C [Primary Care Provider] - Follow up as needed Mode of Arrival: Medic Cannot obtain history due to: Dementia Notes: Emely notes- Discharge Diagnosis (1) Acute hypoxemic respiratory failure Is this a current diagnosis for this admission?: Yes (2) Acute on chronic diastolic CHF (congestive heart failure) Is this a current diagnosis for this admission?: Yes (3) Dysphagia Is this a current diagnosis for this admission?: Yes (4) Hyperglycemia due to type 2 diabetes mellitus Is this a current diagnosis for this admission?: Yes (5) COPD (chronic obstructive pulmonary disease) Is this a current diagnosis for this admission?: Yes (6) Pneumonia Is this a current diagnosis for this admission?: Yes (7) Pulmonary hypertension Is this a current diagnosis for this admission?: Yes (8) Iron deficiency anemia Is this a current diagnosis for this admission?: Yes (9) Dementia Is this a current diagnosis for this admission?: Yes (10) Valvular heart disease Is this a current diagnosis for this admission?: Yes - Assessment Summary: Continue diuresis with IV Lasix twice a day. Losartan, spironolactone. Patient's echo few months ago shows grade 3/4 diastolic dysfunction as well as valvulopathy Had been deemed on prior hospitalization that she was not a good candidate for valvular replacement Continue sliding scale insulin, Accu-Cheks and metformin Successfully weaned down to nasal cannula today and appeared comfortable during encounter. Continue ceftriaxone and azithromycin for treatment of pneumonia. Rapid COVID-19 test was negative. Nurse voiced concerns for patient swallowing. Have scheduled modified barium swallow test for tomorrow. 12/13/2019 Maintain IV Lasix twice a day, losartan and spironolactone Continue treatment with ceftriaxone and azithromycin for potential pneumonia. Patient underwent modified barium swallow test today which noted the patient was having penetration to the level of the vocal cord but no clear aspiration with thin liquids. However the speech pathologist voiced concern about patient eating adequately to meet nutritional requirements as she tended to hold food in her throat for long periods of time without progressing with the swallowing process. Diet has been adjusted. I will discuss with patient's about if he wants to pursue alternative means of nutrition to meet her nutritional goals. Terms of respiration, patient is currently on 3 L nasal cannula will continue to try to wean. 12/14/2019 Continue IV Lasix, losartan and spironolactone. I will add a dose of Diamox given metabolic alkalosis. We will likely also discontinue IV diuresis by tomorrow. Continue to wean off oxygen Continue ceftriaxone and azithromycin We will continue to monitor patient Discharge planning consulted for SNF placement as patient's has voiced concerns about adequately taking care of patient by himself and he is requesting SNF. I believe she should qualify for for SNF given her significant debility and dementia. Patient has been evaluated by physical therapist. As noted before, patient showed penetration on modified barium swallow test all the way to the vocal cords but no aspiration below the vocal cords and has been recommended a diet. Despite initial concerns about patient's nutritional intake, I have been informed by nurse that patient has eaten all of her breakfast and all of her lunch today and as such nutritional intake seems adequate. I have discussed plan with patient's Dex 12/15/2019 Patient is now completely off oxygen maintaining SPO2 in the low 90s to mid 90s on room air at rest. She is very well awake and in no evidence of respiratory distress whatsoever. Patient ate virtually 100% of her meals yesterday and ate her breakfast comfortably today. Patient is on a pured diet with thin liquids. I believe this patient's episode of acute on chronic CHF was likely exacerbated by poor sodium restriction and diet as, during prior hospitalization, we have noted putting lots of salt in patient's food while she was in the hospital. Plan is to continue patient on p.o. Lasix, losartan and spironolactone. In terms of her Subtle left-sided pneumonia, patient will be discharged on cefdinir for 4 more days. COVID-19 test was negative. Patient has not spiked any fevers. my notes 89-year-old female arrives with chief complaint from family of mental status change. Patient on labs has a 6.2 potassium. Patient was just here on [address] Terrell hospitalist. This was for CHF and later for bronchitis. Patient has a history of acute on chronic CHF respiratory failure with hypoxia bacteremia hypokalemia diabetes dementia hypothyroidism. Today her BUN is 37 as well. Her H&H is 8.9 and 27. Staff was talking to her around 1500 today and he says he found on floor with question of fall. Assessment of patient's hips legs arms wrists shoulders clavicles were examined for any bruises abrasions or ecchymosis and patient denied any pain on palpation of these areas. Questionable as historian however and reliability. Rectal guaiac is negative. Patient is on spironolactone. This is potassium sparing diuretic. TRAVEL OUTSIDE OF THE [place] IN LAST 30 DAYS: No - HPI Onset: This morning Onset/Duration: Sudden Quality of pain: No pain Severity: None Associated symptoms: None, Weakness Exacerbated by: Denies Relieved by: Denies Similar symptoms previously: Yes Recently seen / treated by doctor: Yes - Related Data Allergies/Adverse Reactions: diazepam [From Valium] Allergy (Verified 07/11/19 08:14) Past Medical History - General Information source: Relative - Social History Smoking Status: Unknown if Ever Smoked Cigarette use (# per day): No Chew tobacco use (# tins/day): No Smoking Education Provided: No Frequency of alcohol use: unknown Drug Abuse: None Lives with: Family Family History: Reviewed & Not Pertinent, CAD, Hypertension Patient has suicidal ideation: No Patient has homicidal ideation: No - Past Medical History Cardiac Medical History: Reports: Hx Congestive Heart Failure, Hx Hypercholesterolemia, Hx Hypertension Denies: Hx Coronary Artery Disease, Hx Heart Attack Pulmonary Medical History: Reports: Hx COPD, Hx Pneumonia, Hx Respiratory Failure Denies: Hx Asthma, Hx Bronchitis, Hx Tuberculosis Neurological Medical History: Reports: Hx Cerebrovascular Accident. 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 Denies: Hx Hysterectomy - Immunizations Hx Diphtheria, Pertussis, Tetanus Vaccination: Yes Hx Pneumococcal Vaccination: 06/14/12 Physical Exam - Vital signs Vitals: Pulse Resp BP Pulse Ox 71 15 95/69 L 99 01/28/20 12:23 01/28/20 12:23 01/28/20 12:23 01/28/20 12:23 - HEENT Head: Normocephalic, Atraumatic Eyes: Pale conjunctiva Pupils: PERRL Pharynx: Normal Neck: Normal - Respiratory Respiratory status: No respiratory distress Chest status: Nontender Breath sounds: Normal Chest palpation: Normal - Cardiovascular Murmur: No - Abdominal Inspection: Normal Distension: No distension Bowel sounds: Normal Tenderness: Nontender - Rectal Tenderness: Yes Stool: Heme negative Hemorrhoids: None - Back Back: Normal - Extremities General upper extremity: Normal inspection General lower extremity: Normal inspection - Neurological Neuro grossly intact: Yes Cognition: Normal Orientation: AAOx4 Edwards Coma Scale Eye Opening: Spontaneous Edwards Coma Scale Verbal: Oriented Fide Coma Scale Motor: Obeys Commands Edwards Coma Scale Total: 15 Speech: Normal Motor strength normal: LUE, RUE, LLE, RLE Sensory: Normal - Psychological Associated symptoms: Confused - Skin Skin Temperature: Warm Skin Moisture: Dry Course - Vital Signs Vital signs: Temp Pulse Resp BP Pulse Ox 98.9 F 71 19 122/40 L 93 01/28/20 12:28 01/28/20 12:23 01/28/20 15:00 01/28/20 14:01 01/28/20 15:00 - Laboratory Result Diagrams: 01/28/20 12:37 01/28/20 12:37 Laboratory results interpreted by me: 01/28/20 01/28/20 01/28/20 12:37 12:37 12:37 RBC 3.60 L Hgb 8.9 L Hct 27.5 L MCV 76 L MCH 24.7 L RDW 17.3 H Plt Count 925 H [place] % (Auto) 15.1 H Sodium 135.7 L Potassium 6.2 H* BUN 37 H Glucose 126 H Alkaline Phosphatase 208 H TSH 5.63 H - Diagnostic Test Radiology reviewed: Reports reviewed - EKG Interpretation by Me EKG shows normal: Sinus rhythm Rate: Normal Rhythm: NSR - [address] elevation no ST depression no T wave elevation no T wave depression and axis within normal limits Critical Care Note - Critical Care Note Comments: I discussed this case with Dr. Andrew Johnson hospitalist and he will see the patient tonight for possible admission. Discharge - Discharge Clinical Impression: Metabolic encephalopathy, acute mental status changes, Hyperkalemia Dementia Qualifiers: Dementia type: unspecified type Dementia behavioral disturbance: without behav ioral disturbance Qualified Code(s): F03.90 - Unspecified dementia without behavioral disturbance Condition: Fair Disposition: ADMITTED INPATIENT Admitting Provider: Alex (Hospitalist) Additional Instructions: Transfer this patient to floor. Referrals: CORAZON CARRION PA-C [Primary Care Provider] - Follow up as needed
[2020-01-28] MEDS ORDERED: NORMAL SALINE 1000 ML 1,000 ML IV ONE (15:06)
--- NOTE | 2020-01-28 15:13 | RADIOLOGY REPORT (SQ) ---
EXAM DESCRIPTION: CT HEAD WITHOUT IMAGES COMPLETED DATE/TIME: 01/28/2020 2:44 pm REASON FOR STUDY: ms change COMPARISON: 10/07/2019 TECHNIQUE: Axial images acquired through the brain without intravenous contrast. Images reviewed wit h bone, brain and subdural windows. Images stored on PACS. All CT scanners at this facility use dose modulation, iterative reconstruction, and/or weight based d osing when appropriate to reduce radiation dose to as low as reasonably achievable (ALARA). [facility]: Dose Right [facility]: CareDose [facility]: Dose Right [facility]: Teradose 4D [facility]: [employer] RADIATION DOSE: CT Rad equipment meets quality standard of care and radiation dose reduction techniq ues were employed. CTDIvol: 53.2 mGy. DLP: 991 mGy-cm.. LIMITATIONS: None. FINDINGS: VENTRICLES: Normal size and contour. CEREBRUM: No hemorrhage. No midline shift. Stable appearance of the white matter. No evidence for ac [place] infarction. CEREBELLUM: No masses. No hemorrhage. No alteration of density. No evidence for acute infarction. EXTRA-AXIAL SPACES: No fluid collections. ORBITS AND GLOBE: No intra- or extraconal masses. Normal contour of globe without masses. CALVARIUM: No fracture. PARANASAL SINUSES: No fluid or mucosal thickening. SOFT TISSUES: No mass or hematoma. OTHER: No other significant finding. IMPRESSION: NO ACUTE INTRACRANIAL FINDINGS. EVIDENCE OF ACUTE STROKE: NO. TECHNICAL DOCUMENTATION: JOB ID: [id number] Quality ID # [id number]: Final reports with documentation of one or more dose reduction techniques (e.g., Au tomated exposure control, adjustment of the mA and/or kV according to patient size, use of iterative reconstruction technique) 2010 [employer]- All Rights Reserved Reading location - IP/workstation name: [email or web address]
--- NOTE | 2020-01-28 15:16 | RADIOLOGY REPORT (SQ) ---
EXAM DESCRIPTION: CHEST SINGLE VIEW IMAGES COMPLETED DATE/TIME: 01/28/2020 2:43 pm REASON FOR STUDY: ms changes COMPARISON: 01/22/2020 EXAM PARAMETERS: NUMBER OF VIEWS: One view. TECHNIQUE: Single frontal radiographic view of the chest acquired. RADIATION DOSE: NA LIMITATIONS: None. FINDINGS: LUNGS AND PLEURA: No opacities, masses or pneumothorax. No pleural effusion. MEDIASTINUM AND HILAR STRUCTURES: No masses. Contour normal. HEART AND VASCULAR STRUCTURES: Heart enlarged. No overt failure. BONES: No acute findings. HARDWARE: None in the chest. OTHER: No other significant finding. IMPRESSION: NO ACUTE RADIOGRAPHIC FINDING IN THE CHEST. TECHNICAL DOCUMENTATION: JOB ID: [id number] 2010 [employer]- All Rights Reserved Reading location - IP/workstation name: [email or web address]
[2020-01-28] MEDS ORDERED: LEVOTHYROXINE SODIUM INJ/PF 0.1 MG SDV IV ONE (16:47)
[2020-01-28] MEDS ORDERED: LEVOTHYROXINE SODIUM INJ/PF 0.1 MG SDV ONE (17:11)
--- NOTE | 2020-01-28 20:14 | EKG REPORT ---
SEVERITY:- OTHERWISE NORMAL ECG - SINUS RHYTHM rSr' V1 LEFT AXIS DEVIATION : Confirmed by: Parveen Judge MD 28-Jan-2020 20:14:00
[2020-01-28] MEDS: NORMAL SALINE 1000 ML 1,000 ML IV PRN (20:53)
--- NOTE | 2020-01-28 21:04 | PDOC H&P ---
History of Present Illness Admission Date/PCP: CORAZON CARRION PA-C History of Present Illness: SANDY DANG is a 89 year old female with a history of dementia, CHF, diabetes, and hypothyroidism, and is generally in poor condition overall, was admitted to this hospital last month and sent to a alf. She has been home from the shelter facility for probably a couple of weeks. She seemed to eat pretty well here on a pured diet but does not seem to eat very much at home. She was brought in by her who is her primary caregiver because he said she had a change in her mental status. She has a history of stroke and has some chronic left-sided deficits but does not seem to have anything new compared to previous physical exams. She had an extensive work-up in the ER which was unremarkable except for an elevated potassium. She is on Aldactone and Cozaar at home. Her BUN was also a little elevated suggesting dehydration. Past Medical History Cardiac Medical History: Reports: Congestive Heart Failure, Hyperlipidema, Hypertension Denies: Coronary Artery Disease, Myocardial Infarction Pulmonary Medical History: Reports: Chronic Obstructive Pulmonary Disease (COPD), Pneumonia, Respiratory Failure Denies: Asthma, Bronchitis, Tuberculosis Neurological Medical History: Denies: Seizures Endocrine Medical History: Reports: Diabetes Mellitus Type 1, Diabetes Mellitus Type 2, Hypothyroidism Malignancy Medical History: Reports: Breast Cancer GI Medical History: Reports: Gastroesophageal Reflux Disease Musculoskeltal Medical History: Reports: Arthritis - Neck Psychiatric Medical History: Reports: Dementia Denies: Depression Hematology: Reports: Anemia, Bleeding Tendencies Past Surgical History Past Surgical History: Reports: Appendectomy, Cholecystectomy, Mastectomy - right, Other - Unknown Denies: Hysterectomy Social History Lives with: Family Smoking Status: Unknown if Ever Smoked Frequency of Alcohol Use: None Hx Recreational Drug Use: No Drugs: None Hx Prescription Drug Abuse: No Family History Family History: Reviewed & Not Pertinent, CAD, Hypertension Parental Family History Reviewed: No - Unable to obtain Children Family History Reviewed: No - Unable to obtain Sibling(s) Family History Reviewed.: No - Unable to obtain Medication/Allergy Home Medications: Anastrozole [Arimidex 1 mg Tablet] 1 mg PO DAILY 07/11/19 Aspirin [Ecotrin 81 mg EC Tablet] 81 mg PO QHS 07/11/19 Atorvastatin Calcium [Lipitor 20 mg Tablet] 20 mg PO QHS 07/11/19 Escitalopram Oxalate [Lexapro] 20 mg PO QPM 07/11/19 Levothyroxine Sodium [Synthroid 0.15 mg Tablet] 0.15 mg PO Q6AM 07/11/19 Losartan Potassium [Cozaar] 100 mg PO DAILY 07/11/19 Metformin HCl [Glucophage 500 mg Tablet] 500 mg PO BID 07/11/19 Carvedilol [Coreg 12.5 mg Tablet] 12.5 mg PO Q12 10/08/19 Pantoprazole Sodium [Protonix [address] Tablet] 40 mg PO BID@0600,1700 #60 tablet.dr 10/12/19 Spironolactone [Aldactone 25 mg Tablet] 25 mg PO DAILY #60 tablet 10/12/19 Furosemide [Lasix 20 mg Tablet] 20 mg PO BID 12/11/19 Cefdinir 300 mg PO Q12 4 Days #8 capsule 12/15/19 Ferrous Sulfate [Feosol 325 mg Tablet] 325 mg PO DAILY tablet 12/15/19 Ropinirole HCl [Requip 2 mg Tablet] 2 mg PO QHS tablet 12/15/19 Allergies/Adverse Reactions: diazepam [From Valium] Allergy (Verified 07/11/19 08:14) Review of Systems ROS unobtainable: Due to mental status Physical Exam Vital Signs: Temp Pulse Resp BP Pulse Ox 98.9 F 71 19 122/40 L 93 01/28/20 12:28 01/28/20 12:23 01/28/20 15:00 01/28/20 14:01 01/28/20 15:00 Intake & Output 01/27/20 01/28/20 01/29/20 06:59 06:59 06:59 Intake Total 1000 Balance 1000 Weight 69.1 kg General appearance: PRESENT: no acute distress, disheveled, other - Frail elderly female laying on her left side asleep in the ER arouses to mild st imulation Head exam: PRESENT: atraumatic, normocephalic Eye exam: PRESENT: EOMI. ABSENT: conjunctival injection, nystagmus, scleral icterus Ear exam: PRESENT: normal external ear exam Mouth exam: PRESENT: dry mucosa, neck supple Teeth exam: PRESENT: poor dentation Neck exam: PRESENT: full ROM. ABSENT: carotid bruit, JVD, lymphadenopathy, meningismus, tenderness, thyromegaly Respiratory exam: PRESENT: clear to auscultation stella, symmetrical, unlabored. ABSENT: accessory muscle use, chest wall tenderness, crackles, prolonged expiratory phas, rhonchi, tachypnea, wheezes Cardiovascular exam: PRESENT: RRR, +S1, +S2 Pulses: PRESENT: normal carotid pulses Vascular exam: PRESENT: normal capillary refill GI/Abdominal exam: PRESENT: normal bowel sounds, soft. ABSENT: distended, guarding, rebound, tenderness Extremities exam: ABSENT: clubbing, pedal edema Musculoskeletal exam: PRESENT: normal inspection. ABSENT: deformity Neurological exam: PRESENT: awake, oriented to person, CN II-XII grossly intact, other Psychiatric exam: PRESENT: flat affect Skin exam: PRESENT: dry, warm Results Laboratory Results: 01/28/20 12:37 01/28/20 12:37 01/28/20 01/28/20 01/28/20 12:37 12:37 12:37 WBC 7.6 RBC 3.60 L Hgb 8.9 L Hct 27.5 L MCV 76 L MCH 24.7 L MCHC 32.4 RDW 17.3 H Plt Count 925 H Seg Neutrophils % 66.8 Sodium 135.7 L Potassium 6.2 H* Chloride 100 Carbon Dioxide 28 Anion Gap 8 BUN 37 H Creatinine 0.73 Est GFR ( Amer) > 60 Glucose 126 H Calcium 9.3 Magnesium 2.0 Total Bilirubin 0.3 AST 35 Alkaline Phosphatase 208 H Total Protein 6.9 Albumin 3.5 TSH 5.63 H Urine Color Urine Appearance Urine pH Ur Specific [place] Urine Protein Urine Glucose (UA) Urine Ketones Urine Blood Urine Nitrite Ur Leukocyte Esterase Urine WBC (Auto) 01/28/20 12:59 WBC RBC Hgb Hct MCV MCH MCHC RDW Plt Count Seg Neutrophils % Sodium Potassium Chloride Carbon Dioxide Anion Gap BUN Creatinine Est GFR ( Amer) Glucose Calcium Magnesium Total Bilirubin AST Alkaline Phosphatase Total Protein Albumin TSH Urine Color STRAW Urine Appearance CLEAR Urine pH 5.0 Ur Specific [place] 1.009 Urine Protein NEGATIVE Urine Glucose (UA) NEGATIVE Urine Ketones NEGATIVE Urine Blood NEGATIVE Urine Nitrite NEGATIVE Ur Leukocyte Esterase NEGATIVE Urine WBC (Auto) 0 01/28/20 12:37 Troponin I 0.013 Impressions: Head CT 01/28/20 14:17 IMPRESSION: NO ACUTE INTRACRANIAL FINDINGS. EVIDENCE OF ACUTE STROKE: NO. Chest X-Ray 01/28/20 14:18 IMPRESSION: NO ACUTE RADIOGRAPHIC FINDING IN THE CHEST. Assessment and Plan - Diagnosis (1) Hyperkalemia Is this a current diagnosis for this admission?: Yes Plan: Probably from a combination of dehydration and the fact that she takes Aldactone and Cozaar. We will hydrate her and hold her Cozaar and Aldactone. (2) Dementia Qualifiers: Dementia type: Alzheimer's disease Alzheimer's disease onset: late-onset Dementia behavioral disturbance: without behavioral disturbance Qualified Code(s): G30.1 - Alzheimer's disease with late onset; F02.80 - Dementia in other diseases classified elsewhere without behavioral disturbance Is this a current diagnosis for this admission?: Yes Plan: Mental status at baseline compared to examination of prior presentations (3) CHF (congestive heart failure) Qualifiers: Heart failure type: unspecified Heart failure chronicity: chronic Qualified Code(s): I50.9 - Heart failure, unspecified Is this a current diagnosis for this admission?: Yes Plan: Not acutely exacerbated, monitoring for overload in the setting of hydration (4) Debility Is this a current diagnosis for this admission?: Yes Plan: Chronic longstanding problem (5) Diabetes mellitus Qualifiers: Diabetes mellitus type: type 2 Diabetes mellitus ocean transportation intermediary insulin use: without ocean transportation intermediary use Diabetes mellitus complication status: without complication Qualified Code(s): E11.9 - Type 2 diabetes mellitus without complications Is this a current diagnosis for this admission?: Yes Plan: Continue metformin and glipizide (6) Dysphagia status post cerebrovascular accident Is this a current diagnosis for this admission?: Yes Plan: Pured diet, seem to tolerate thin liquids well on previous speech therapy evaluation (7) Moderate aortic stenosis Is this a current diagnosis for this admission?: Yes - Time Time Spent with patient: 35 or more minutes Anticipated Discharge Disposition: Home with Home Health Anticipated Discharge Timeframe: within 24 hours
[2020-01-28] MEDS: HEPARIN SOD (PORCINE) 5,000 UNIT/ML 1 ML VIAL SUBCUT SCH (23:33)
[2020-01-29] MEDS: HEPARIN SOD (PORCINE) 5,000 UNIT/ML 1 ML VIAL SUBCUT SCH (05:46)
[2020-01-29] MEDS: NORMAL SALINE 1000 ML 1,000 ML IV PRN (05:47)
[2020-01-29 07:22] LABS: BLOOD UREA NITROGEN 24 mg/dL (7-20); GLUCOSE 98 mg/dL (75-110)
[2020-01-29 07:27] LABS: CARBON DIOXIDE 27 mmol/L (22-30); CHLORIDE 105 mmol/L (98-107)
[2020-01-29 07:47] LABS: ANION GAP 5 (5-19)
[2020-01-29 07:49] LABS: POTASSIUM 5.3 mmol/L (3.6-5.0)
--- NOTE | 2020-01-29 08:19 | EKG REPORT ---
SEVERITY:- ABNORMAL ECG - SINUS RHYTHM MULTIPLE ATRIAL PREMATURE COMPLEXES LEFT AXIS DEVIATION : Confirmed by: Roel Cordero 29-Jan-2020 08:18:39
[2020-01-29] MEDS ORDERED: SODIUM POLYSTYRENE SULFONATE 15 GM/60 ML PO ONE (10:28)
[2020-01-29] MEDS ORDERED: AMLODIPINE BESYLATE 5 MG TABLET PO SCH (10:30)
--- NOTE | 2020-01-29 11:50 | PDOC DISCHARGE SUMMARY ---
Impression - Admit/DC Date/PCP Admission Date/Primary Care Provider: 01/28/20 20:20 CORAZON CARRION PA-C Discharge Date: 01/29/20 - Discharge Diagnosis (1) Dementia Is this a current diagnosis for this admission?: Yes (2) Hyperkalemia Is this a current diagnosis for this admission?: Yes (3) Diabetes mellitus type 2 in nonobese Is this a current diagnosis for this admission?: Yes (4) HTN (hypertension) Is this a current diagnosis for this admission?: Yes (5) Moderate aortic stenosis Is this a current diagnosis for this admission?: Yes - Additional Information Resuscitation Status: Do Not Resuscitate Discharge Diet: Cardiac Discharge Activity: Activity As Tolerated Referrals: CORAZON CARRION PA-C [Primary Care Provider] - 02/02/20 10:30 am (Medication review and adjustment as appropriate) Home Medications: Acetaminophen [Tylenol 325 mg Tablet] 650 mg PO Q4HP PRN 01/29/20 Anastrozole [Arimidex 1 mg Tablet] 1 mg PO DAILY 01/29/20 Aspirin [Ecotrin 81 mg EC Tablet] 81 mg PO DAILY 01/29/20 Atorvastatin Calcium [Lipitor 20 mg Tablet] 20 mg PO QHS 01/29/20 C,E,Zinc,Copper 11/Djkdj1x/Lut [Ocuvite Adult 50 Plus Softgel] 1 cap PO DAILY 01/29/20 Calcium Carbonate/Vitamin D3 [Calcium 500 mg-Vit D3 600 Unit] 1 tab PO DAILY 01/29/20 Carvedilol [Coreg 12.5 mg Tablet] 12.5 mg PO Q12 01/29/20 Cholestyramine [Questran 4 gm Packet] 4 gm PO BID 01/29/20 Clonidine HCl [Catapres 0.1 mg Tablet] 0.3 mg PO QHS 01/29/20 Docusate Sodium [Colace 100 mg Capsule] 100 mg PO BID 01/29/20 Eplerenone [Inspra 25 mg Tablet] 25 mg PO DAILY #0 01/29/20 Escitalopram Oxalate [Lexapro 10 mg Tablet] 20 mg PO DAILY 01/29/20 Furosemide [Lasix 20 mg Tablet] 20 mg PO BID 01/29/20 Hydralazine HCl 100 mg PO TID 01/29/20 Levothyroxine Sodium [Synthroid 0.15 mg Tablet] 0.15 mg PO Q6AM 01/29/20 Losartan Potassium [Cozaar 50 mg Tablet] 50 mg PO DAILY #0 01/29/20 Magnesium Oxide [Mag-Ox 400 mg Tablet] 400 mg PO DAILY 01/29/20 Metformin HCl [Glucophage 500 mg Tablet] 500 mg PO BID 01/29/20 Multivitamin 1 tab PO DAILY 01/29/20 Nifedipine [Nifedipine ER] 60 mg PO DAILY 01/29/20 Pantoprazole Sodium [Protonix [address] Tablet] 40 mg PO BID 01/29/20 Ropinirole HCl [Requip 2 mg Tablet] 2 mg PO Q12 01/29/20 History of Present Illiness History of Present Illness: SANDY DANG is a 89 year old female Was admitted overnight after being found to be hypokalemic and dehydrated. Her initial potassium was 6.2. Hospital Course Hospital Course: Patient was given potassium binding resin's. She was found to be on both Inspra as well as Aldactone in addition to Cozaar. This probably a major contributing factor to her hyperkalemia. This was held while in hospital but at this time I have discontinued the Aldactone, decrease the Inspra dose by half as well as the Cozaar dose by half and this will need to be followed as outpatient. Potassium currently is 5.3 and patient received another dose of Kayexalate 15 g after these. She has otherwise remained relatively hemodynamically stable. At this time patient appears to be at baseline and it is felt that she can be discharged home for outpatient follow-up. She will need her medications to be reviewed and readjusted as appropriate Patient recovered very quickly overnight. Her potassium has recovered. Held Aldactone and Cozaar Physical Exam Vital Signs: Temp Pulse Resp BP Pulse Ox 98.2 F 73 20 156/68 H 91 L 01/29/20 07:49 01/29/20 07:49 01/29/20 07:49 01/29/20 07:49 01/29/20 07:49 Intake & Output 01/28/20 01/29/20 01/30/20 06:59 06:59 06:59 Intake Total 1890 100 Balance 1890 100 Weight 59.8 kg General appearance: PRESENT: no acute distress, cooperative, other - Elderly lady with dementia Head exam: PRESENT: atraumatic Neck exam: ABSENT: JVD, tenderness Respiratory exam: PRESENT: clear to auscultation stella Cardiovascular exam: PRESENT: RRR, +S1, +S2, systolic murmur GI/Abdominal exam: PRESENT: normal bowel sounds, soft Rectal exam: PRESENT: deferred Extremities exam: PRESENT: other - Contracted extremities Neurological exam: PRESENT: alert, awake, other - Demented. ABSENT: oriented to person, oriented to place, oriented to time Results Laboratory Results: WBC 7.6 10^3/uL (4.0-10.5) 01/28/20 12:37 RBC 3.60 10^6/uL (3.72-5.28) L 01/28/20 12:37 Hgb 8.9 g/dL (12.0-15.5) L 01/28/20 12:37 Hct 27.5 % (36.0-47.0) L 01/28/20 12:37 MCV 76 fl (80-97) L 01/28/20 12:37 MCH 24.7 pg (27.0-33.4) L 01/28/20 12:37 MCHC 32.4 g/dL (32.0-36.0) 01/28/20 12:37 RDW 17.3 % (11.5-14.0) H 01/28/20 12:37 Plt Count 925 10^3/uL (150-450) H 01/28/20 12:37 Lymph % (Auto) 14.7 % (13-45) 01/28/20 12:37 [place] % (Auto) 15.1 % (3-13) H 01/28/20 12:37 Eos % (Auto) 2.5 % (0-6) 01/28/20 12:37 Baso % (Auto) 0.9 % (0-2) 01/28/20 12:37 Absolute Neuts (auto) 5.1 10^3/uL (1.7-8.2) 01/28/20 12:37 Absolute Lymphs (auto) 1.1 10^3/uL (0.5-4.7) 01/28/20 12:37 Absolute Monos (auto) 1.1 10^3/uL (0.1-1.4) 01/28/20 12:37 Absolute Eos (auto) 0.2 10^3/uL (0.0-0.6) 01/28/20 12:37 Absolute Basos (auto) 0.1 10^3/uL (0.0-0.2) 01/28/20 12:37 Seg Neutrophils % 66.8 % (42-78) 01/28/20 12:37 Sodium 137.2 mmol/L (137-145) 01/29/20 05:38 Potassium 5.3 mmol/L (3.6-5.0) H 01/29/20 05:38 Chloride 105 mmol/L (98-107) 01/29/20 05:38 Carbon Dioxide 27 mmol/L (22-30) 01/29/20 05:38 Anion Gap 5 (5-19) 01/29/20 05:38 BUN 24 mg/dL (7-20) H 01/29/20 05:38 Creatinine 0.69 mg/dL (0.52-1.25) 01/29/20 05:38 Est GFR ( Amer) > 60 (>60) 01/29/20 05:38 Est GFR (MDRD) Non-Af > 60 (>60) 01/29/20 05:38 Glucose 98 mg/dL (75-110) 01/29/20 05:38 Calcium 9.0 mg/dL (8.4-10.2) 01/29/20 05:38 Magnesium 2.0 mg/dL (1.6-2.3) 01/28/20 12:37 Total Bilirubin 0.3 mg/dL (0.2-1.3) 01/28/20 12:37 Direct Bilirubin 0.0 mg/dL (0.0-0.4) 01/28/20 12:37 Neonat Total Bilirubin Not Reportable 01/28/20 12:37 Neonat Direct Bilirubin Not Reportable 01/28/20 12:37 Neonat Indirect Bili Not Reportable 01/28/20 12:37 AST 35 U/L (14-36) 01/28/20 12:37 ALT 17 U/L (<35) 01/28/20 12:37 Alkaline Phosphatase 208 U/L (38-126) H 01/28/20 12:37 Ammonia 9.4 umol/L (9-33) 01/28/20 20:28 Troponin I 0.013 ng/mL 01/28/20 12:37 Total Protein 6.9 g/dL (6.3-8.2) 01/28/20 12:37 Albumin 3.5 g/dL (3.5-5.0) 01/28/20 12:37 TSH 5.63 uIU/mL (0.47-4.68) H 01/28/20 12:37 Urine Color STRAW 01/28/20 12:59 Urine Appearance CLEAR 01/28/20 12:59 Urine pH 5.0 (5.0-9.0) 01/28/20 12:59 Ur Specific [place] 1.009 01/28/20 12:59 Urine Protein NEGATIVE mg/dL (NEGATIVE) 01/28/20 12:59 Urine Glucose (UA) NEGATIVE mg/dL (NEGATIVE) 01/28/20 12:59 Urine Ketones NEGATIVE mg/dL (NEGATIVE) 01/28/20 12:59 Urine Blood NEGATIVE (NEGATIVE) 01/28/20 12:59 Urine Nitrite NEGATIVE (NEGATIVE) 01/28/20 12:59 Urine Bilirubin NEGATIVE (NEGATIVE) 01/28/20 12:59 Urine Urobilinogen NEGATIVE mg/dL (<2.0) 01/28/20 12:59 Ur Leukocyte Esterase NEGATIVE (NEGATIVE) 01/28/20 12:59 Urine WBC (Auto) 0 /HPF 01/28/20 12:59 U Hyaline Cast (Auto) 1 /LPF 01/28/20 12:59 Urine Mucus (Auto) RARE /LPF 01/28/20 12:59 Urine Ascorbic Acid NEGATIVE (NEGATIVE) 01/28/20 12:59 Urine Opiates Screen NEGATIVE 01/28/20 12:59 Urine Methadone Screen NEGATIVE 01/28/20 12:59 Ur Barbiturates Screen NEGATIVE 01/28/20 12:59 Ur Phencyclidine Scrn NEGATIVE 01/28/20 12:59 Ur Amphetamines Screen NEGATIVE 01/28/20 12:59 U Benzodiazepines Scrn NEGATIVE 01/28/20 12:59 Urine Cocaine Screen NEGATIVE 01/28/20 12:59 U Marijuana (THC) Screen NEGATIVE 01/28/20 12:59 Serum Alcohol < 10 mg/dL (NONE DETECTED) 01/28/20 12:37 01/28/20 12:37 Troponin I 0.013 Impressions: Head CT 01/28/20 14:17 IMPRESSION: NO ACUTE INTRACRANIAL FINDINGS. EVIDENCE OF ACUTE STROKE: NO. Chest X-Ray 01/28/20 14:18 IMPRESSION: NO ACUTE RADIOGRAPHIC FINDING IN THE CHEST. Plan Health Concerns: Medication reevaluation and adjustment. Patient was on multiple potassium retaining diuretics and this needs to be adjusted. Time Spent: Less than 30 Minutes Stroke Is this a Stroke Patient?: No Acute Heart Failure - Is this a Heart Failure Patient?: No
[2020-01-29 12:33] VITALS: BP 118/51
== END 2020-01-29 14:11 | disposition home or self-care (01) ==
LOC: ER 12:23 → EH 20:20 → 4N 22:28
PROVIDERS: ADMIT Family Medicine; ATTEND Internal Medicine
DX: G30.1 Alzheimer's disease with late onset (principal); F02.80 Dementia in other diseases classified elsewhere, unspecified severity, without behavioral disturbance, psychotic disturbance, mood disturbance, and anxiety; E87.5 Hyperkalemia; E11.9 Type 2 diabetes mellitus without complications; I11.0 Hypertensive heart disease with heart failure; I50.32 Chronic diastolic (congestive) heart failure; I35.0 Nonrheumatic aortic (valve) stenosis; E86.0 Dehydration; E78.5 Hyperlipidemia, unspecified; R53.81 Other malaise; I69.391 Dysphagia following cerebral infarction; R13.10 Dysphagia, unspecified; K21.9 Gastro-esophageal reflux disease without esophagitis; E03.9 Hypothyroidism, unspecified; Z66 Do not resuscitate; Z79.899 Other long term (current) drug therapy; Z79.82 Long term (current) use of aspirin; Z85.3 Personal history of malignant neoplasm of breast; Z82.49 Family history of ischemic heart disease and other diseases of the circulatory system
CPT/HCPCS: 93005 ×2; 99285; 96361; 96374; 36415 ×2; 80307 ×2; 82140; 83735; 84443; 85025; 80048; 80053; 81001; 84484; 71045; 70450; 93010 ×2; G0378 ×3; J1644 ×2; A9270 ×3; J7030 ×2; J3490

== ENCOUNTER 2020-02-25 19:50 | Emergency (ER) | payer MEDICARE, OTHER ==
--- NOTE | 2020-02-25 21:14 | RADIOLOGY REPORT (SQ) ---
CLINICAL INDICATION: FALL PAIN. . TECHNIQUE: 4 view(s) were obtained of the right knee. Motion artifact COMPARISON: None. FINDINGS: No acute displaced fracture is identified of the knee. Alignment appears anatomic. Osteoarthritis. Chondrocalcinosis. No significant joint effusion. Vascular calcification. IMPRESSION: No evidence of acute displaced fracture of the knee.
--- NOTE | 2020-02-25 21:47 | ER Document Report ---
ED Extremity Problem, Lower - General Chief Complaint: Leg Injury Stated Complaint: FALL/BUMP TO RIGHT LEG Time Seen by Provider: 02/25/20 20:50 Primary Care Provider: CORAZON CARRION PA-C [Primary Care Provider] - Follow up as needed Information source: Patient, Relative TRAVEL OUTSIDE OF THE [place] IN LAST 30 DAYS: No - HPI Patient complains to provider of: Injury Location: Knee Occurred: Just prior to arrival Where: Home Exacerbated by: Nothing Notes: Patient is an 89-year-old female with a past medical history of frequent falls who presents after a fall. She is not on blood thinners. Patient is with her who provides most of the history as she is very hard of hearing. He states that she was ambulating in the bathroom with her walker and fell onto her knee and bumped it. She denies any head injury. She did not have a syncopal event. This was mechanical according to her and her . She is denying any hip pain or lower leg or foot pain. Her states that she is acting appropriately at baseline. Patient is denying any pain anywhere. states he just wants her knee checked out as it had some bruising. - Related Data Allergies/Adverse Reactions: diazepam [From Valium] Allergy (Verified 07/11/19 08:14) Past Medical History - General Information source: Patient, Relative - Social History Smoking Status: Never Smoker Family History: Reviewed & Not Pertinent, CAD, Hypertension - Past Medical History Cardiac Medical History: Reports: Hx Congestive Heart Failure, Hx Hypercholesterolemia, Hx Hypertension Denies: Hx Coronary Artery Disease, Hx Heart Attack Pulmonary Medical History: Reports: Hx COPD, Hx Pneumonia, Hx Respiratory Failure Denies: Hx Asthma, Hx Bronchitis, Hx Tuberculosis Neurological Medical History: Reports: Hx Cerebrovascular Accident. 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 Denies: Hx Hysterectomy - Immunizations Hx Diphtheria, Pertussis, Tetanus Vaccination: Yes Hx Pneumococcal Vaccination: 06/14/12 Review of Systems - Review of Systems Notes: CONSTITUTIONAL: No fever SKIN: No rash. EYES: No recent vision problems or eye pain. CARDIOVASCULAR: No chest pain or edema. RESPIRATORY: No cough GASTROINTESTINAL: No abdominal pain, nausea, vomiting MUSCULOSKELETAL: Positive for right knee pain LYMPHATIC: No swollen glands. NEUROLOGIC: No seizures. No headache, focal weakness or sensory changes. HEMATOLOGIC: No unusual bruising or bleeding. Physical Exam - Vital signs Vitals: BP 160/113 H 02/25/20 20:01 - Notes Notes: VITAL SIGNS: Within normal limits. GENERAL: No acute distress, non-toxic appearance. HEAD: Normal with no signs of head trauma. EOMI, conjunctiva normal, no discharge. EARS: Hard of hearing NOSE: Normal. NECK: Normal range of motion, no tenderness, supple, no lymphadenopathy, No adenopathy, no JVD. No posterior cervical tenderness. CHEST: Clear breath sounds bilaterally. CARDIAC: Regular rate and rhythm. S1 and S2, without murmurs, gallops, or rubs. VASCULAR: No Edema. ABDOMEN: Normal and soft with no tenderness LYMPATHTIC: No lymphadenopathy noted. MUSCULOSKELETAL: Good range of motion of all major joints. Mild swelling and ecchymosis to right anterior knee. Range of motion intact. Tender to palpation. No hip tenderness. NEUROLOGICAL: Alert. No focal sensory or strength deficits. Speech normal. Follows commands appropriately. PSYCHIATRIC: Normal Affect, judgement and mood. SKIN: Normal appearance with no rashes or lesions. Course - Re-evaluation Re-evalutation: 02/26/20 01:46 Patient's knee x-ray was negative. They state that this was a mechanical fall. I did offer blood work and further advanced imaging as patient is a poor historian regarding the fall but adamantly refused. He states they do not want her to have any blood work and she did not hit her head. He just wanted to have her knee evaluated. Patient is also declining any pain. They are requesting discharge. I believe this is reasonable. Patient is denying any hip pain. No other injuries on my exam. Patient was told to follow-up with her PCP. - Vital Signs Vital signs: Temp Pulse Resp BP Pulse Ox 97.7 F 67 18 163/82 H 100 02/25/20 20:07 02/25/20 20:07 02/25/20 20:07 02/25/20 22:01 02/25/20 22:01 Discharge - Discharge Clinical Impression: Knee contusion Qualifiers: Encounter type: initial encounter Laterality: right Qualified Code(s): S80.01XA - Contusion of right knee, initial encounter Condition: Stable Disposition: HOME, SELF-CARE Instructions: [facility] ([facility]) Referrals: CORAZON CARRION PA-C [Primary Care Provider] - Follow up as needed
[2020-02-25 22:49] VITALS: BP 163/82
== END 2020-02-25 22:49 | disposition home or self-care (01) ==
LOC: ER 19:50
DX: S80.01XA Contusion of right knee, initial encounter (principal); W01.0XXA Fall on same level from slipping, tripping and stumbling without subsequent striking against object, initial encounter; Y92.009 Unspecified place in unspecified non-institutional (private) residence as the place of occurrence of the external cause; I50.9 Heart failure, unspecified; E78.00 Pure hypercholesterolemia, unspecified; I11.0 Hypertensive heart disease with heart failure; Z86.73 Personal history of transient ischemic attack (TIA), and cerebral infarction without residual deficits
CPT/HCPCS: 99283

== ENCOUNTER 2020-03-10 13:13 | Emergency (ER) | payer MEDICARE, OTHER ==
--- NOTE | 2020-03-10 15:55 | ER Document Report ---
ED GI/ - General Chief Complaint: Fall Stated Complaint: VAGINAL BLEEDING Time Seen by Provider: 03/10/20 13:24 Primary Care Provider: EFRAÍN CALVERT MD [ACTIVE STAFF] - Follow up as needed Mode of Arrival: Ambulatory Information source: Patient Notes: This 89-year-old woman presents to the emergency department with a history of bleeding vaginally which began last night. She denies pain associated with the episode. States that she has not had any previous symptoms. She also denies dizziness, chest pain or shortness of breath. TRAVEL OUTSIDE OF THE [place] IN LAST 30 DAYS: No - Related Data Allergies/Adverse Reactions: diazepam [From Valium] Allergy (Verified 03/10/20 13:46) Home Medications: SPironolactone 25mg QAM. Arimidex 1 mg QAM. Aspirin EC 81mg QHS. Atorvastatin 20mg QPM. Carvedilol 12.5mg BID. Escitalopram Oxolate 20mg QPM. Lasix 20mg BID. Levothyroxine Sodium 150mcg QPM. Losartan Potassium 50mg QPM. Metformin HCL 500mg BID. Ropinirole HCl 2mg BID Past Medical History - Social History Smoking Status: Unknown if Ever Smoked Chew tobacco use (# tins/day): No Frequency of alcohol use: None Drug Abuse: None Family History: Reviewed & Not Pertinent, CAD, Hypertension Patient has homicidal ideation: No - Past Medical History Cardiac Medical History: Reports: Hx Congestive Heart Failure, Hx Hypercholester olemia, Hx Hypertension Denies: Hx Coronary Artery Disease, Hx Heart Attack Pulmonary Medical History: Reports: Hx COPD, Hx Pneumonia, Hx Respiratory Failure Denies: Hx Asthma, Hx Bronchitis, Hx Tuberculosis Neurological Medical History: Reports: Hx Cerebrovascular Accident. 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 Denies: Hx Hyst erectomy - Immunizations Hx Diphtheria, Pertussis, Tetanus Vaccination: Yes Hx Pneumococcal Vaccination: 06/14/12 Review of Systems - Review of Systems Notes: Constitutional: Negative for fever. HENT: Negative for sore throat. Eyes: Negative for visual changes. Cardiovascular: Negative for chest pain. Respiratory: Negative for shortness of breath. Gastrointestinal: Negative for abdominal pain, vomiting or diarrhea. Genitourinary: See HPI Musculoskeletal: Negative for back pain. Skin: Negative for rash. Neurological: Negative for headaches, weakness or numbness. 10 point ROS negative except as marked above and in HPI. Physical Exam - Vital signs Vitals: Temp 97.6 F 03/10/20 13:14 - Notes Notes: PHYSICAL EXAMINATION: Physical Exam: General: Well-nourished well-developed 89-year-old female no acute distress HEENT: NC/AT, pupils equal round and reactive to light, MM moist,nares clear, oropharynx clear, airway patent Neck: supple, no adenopathy, no masses. Good range of motion Lungs: clear, no wheezing, no rales no rhonchi CVS: Regular rate and rhythm no murmur gallop or rub Abdomen: Soft, active, nontender, no masses, no hepatosplenomegaly : External genitalia revealing atrophic changes, vaginal mucosa is intact, posterior vaginal vault revealed dark blood at the posterior vault, atrophic changes of the cervix and no other lesions identified. Ext: No edema, clubbing or cyanosis. Neuro: Alert and responsive, moving all 4 extremities on command, cranial nerves intact, no focal findings Skin: Intact no open lesions, no rash PSYCH: Normal mood, normal affect. Course - Re-evaluation Re-evalutation: 03/10/20 16:18 I have discussed the findings of the exam with the [employer] on-call Dr. Calvert. She has requested a pelvic ultrasound be performed today if possible, they will see the patient in the office next week regarding her postmenopausal bleeding. Pelvic ultrasound is ordered along with his baseline labs. 03/10/20 17:20 The patient's arrived and I have discussed her clinical findings with him. He states that she traveled to [facility] last week, was seen and had episodes of bleeding at that time. The ER visit in [place], they suggested she had hematuria, she was given medications for infection. The bleeding today appears to be uterine related and she apparently sees Dr. Shepherd at [facility] and has been seen on one prior occasion according to the . The initial potassium was reported at 6.9. A repeat potassium was 6.0. The notes that she has had high potassiums on her lab work on multiple occasions in the past. They discontinued all potassium supplement and she has continued to have elevated lev els. Because she is asymptomatic, no treatment has been offered. With a normal BUN and creatinine and not on supplements, I going to have the patient follow-up with her primary physician. The elevated potassium may be related to the spironolactone which was started after her last hospitalization for congestive heart failure. I have asked the to follow-up with the primary care doctor this week to have a repeat potassium performed and also to inquire regarding the continued use of spironolactone. The ultrasound has been performed, I am discharging the patient with her follow-up as an outpatient. 03/10/20 17:31 03/10/20 17:33 - Vital Signs Vital signs: Temp Pulse Resp BP Pulse Ox 97.6 F 03/10/20 13:14 - Laboratory Result Diagrams: 03/10/20 14:05 03/10/20 16:44 Laboratory results interpreted by me: 03/10/20 03/10/20 03/10/20 14:05 14:05 16:44 Hgb 9.7 L Hct 30.4 L MCV 74 L MCH 23.6 L MCHC 31.9 L RDW 18.2 H Plt Count 667 H [place] % (Auto) 13.9 H Sodium 134.3 L Potassium 6.9 H* 6.0 H* BUN 42 H Est GFR (MDRD) Non-Af 58 L Glucose 135 H Alkaline Phosphatase 182 H Discharge - Discharge Clinical Impression: Postmenopausal vaginal bleeding, High potassium Condition: Good Disposition: HOME, SELF-CARE Instructions: Vaginal Bleeding ([facility]) Additional Instructions: You have presented with postmenopausal vaginal bleeding. I have talked with the [employer] industrial controller Dr. Calvert and you are being instructed to call the office on Wednesday to schedule an appointment to be seen for further evaluation of the bleeding. The office phone number is listed in the referral information below. HOME CARE INSTRUCTIONS & INFORMATION: Thank you for choosing us for your medical needs. We hope you're satisfied with the care you received. After you leave, you must properly care for your problem and, at the same time, observe its progress. Any condition can change. Some illnesses can change rapidly over hours or days. If your condition worsens, return to the Emergency Department or see your physician promptly. ABOUT YOUR X-RAYS AND EKG'S: If you had an EKG or X-rays taken, they have been read by the Emergency Physician. The X-rays and EKG's will also be read by a Radiologist or [employer] within 24 hours. If discrepancies are noted, you will be notified by telephone. Please be certain the ED has a correct telephone number & address where you can be reached. Also, realize that some fractures or abnormalities do not show up on initial X-rays. If your symptoms continue, see your physician. ABOUT YOUR LABORATORY TEST: If you had laboratory tests, the results have been reviewed by the Emergency Physician. Some test results (for example cultures) may not be available for several days. You will be contacted if any test result shows you need additional treatment. Please be certain the ED has a correct telephone number and address where you can be reached. ABOUT YOUR MEDICATIONS: You will receive instructions on how to take your medicine on the prescription label you receive. Additional information may be provided by the Pharmacy. If you have questions afterwards, call the ED for clarification or further instructions. Some prescribed medications may cause drowsiness. Do not perform tasks such as driving a car or operating machinery without consulting your Pharmacist. If you feel you need a refill of pain medication, your condition will need re-evaluation. Please do not call for a refill of any medication. ABOUT YOUR SIGNATURE: Signature of this document acknowledges to followin. Understanding that you received emergency treatment and that you may be released before al medical problems are known or treated. Please be certain the ED has a correct phone number & address where you can be reached. 2. Acknowledgement that you will arrange for follow-up care as recommended. 3. Authorization for the Emergency Physician to provide information to your follow-up Physician in order to maximize your care. AT ANY TIME, IF YOUR SYMPTOMS CHANGE SIGNIFICANTLY OR WORSEN OR YOU DEVELOP NEW SYMPTOMS, RETURN TO THE EMERGENCY DEPARTMENT IMMEDIATELY FOR RE-EVALUATION. OUR GOAL IS TO PROVIDE EXCELLENT MEDICAL CARE! WE HOPE THAT WE HAVE MET YOUR EXPECTATIONS DURING YOUR EMERGENCY DEPARTMENT VISIT AND THAT YOU FEEL YOU HAVE RECEIVED EXCELLENT CARE! Referrals: EFRAÍN CALVERT MD [ACTIVE STAFF] - Follow up as needed
[2020-03-10 16:09] LABS: ABSOLUTE BASOPHILS # (AUTO) 0.1 10^3/uL (0.0-0.2); ABSOLUTE EOSINOPHILS # (AUTO) 0.1 10^3/uL (0.0-0.6); ABSOLUTE LYMPHOCYTES (AUTO) 1.4 10^3/uL (0.5-4.7); ABSOLUTE MONOCYTES (AUTO) 1.4 10^3/uL (0.1-1.4); ABSOLUTE NEUT (AUTO) 7.1 10^3/uL (1.7-8.2); BASOPHILS % (AUTO) 0.9 % (0-2); EOSINOPHILS % (AUTO) 1.3 % (0-6); HEMATOCRIT 30.4 % (36.0-47.0); HEMOGLOBIN 9.7 g/dL (12.0-15.5); LYMPHOCYTES % (AUTO) 13.6 % (13-45); MEAN CORPUSCULAR HEMOGLOBIN 23.6 pg (27.0-33.4); MEAN CORPUSCULAR HGB CONC 31.9 g/dL (32.0-36.0); MEAN CORPUSCULAR VOLUME 74 fl (80-97); MONOCYTES % (AUTO) 13.9 % (3-13); PLATELET COUNT 667 10^3/uL (150-450); RED BLOOD COUNT 4.12 10^6/uL (3.72-5.28); RED CELL DISTRIBUTION WIDTH 18.2 % (11.5-14.0); SEGMENTED NEUTROPHILS % (AUTO) 70.3 % (42-78); TOTAL CELLS COUNTED % (AUTO) 100 %; WHITE BLOOD COUNT 10.1 10^3/uL (4.0-10.5)
[2020-03-10 16:21] LABS: ALBUMIN 4.1 g/dL (3.5-5.0); ALKALINE PHOSPHATASE 182 U/L (38-126); ANION GAP 10 (5-19); ASPARTATE AMINO TRANSFERASE 31 U/L (14-36); BILIRUBIN,DIRECT 0.2 mg/dL (0.0-0.4); BILIRUBIN,TOTAL 0.3 mg/dL (0.2-1.3); BLOOD UREA NITROGEN 42 mg/dL (7-20); CALCIUM 9.9 mg/dL (8.4-10.2); CARBON DIOXIDE 25 mmol/L (22-30); CHLORIDE 99 mmol/L (98-107); GLUCOSE 135 mg/dL (75-110); TOTAL PROTEIN 7.4 g/dL (6.3-8.2)
[2020-03-10 16:28] LABS: POTASSIUM 6.9 mmol/L (3.6-5.0)
[2020-03-10 16:36] LABS: TOXIC GRANULATION SLIGHT
[2020-03-10 16:37] LABS: ANISOCYTOSIS 2+; HYPOCHROMASIA 1+; OVALOCYTES 1+; PLATELET COMMENT INCREASED; POIKILOCYTOSIS 1+
[2020-03-10 16:41] LABS: INTERNATIONAL RATION (INR) 0.96
--- NOTE | 2020-03-10 18:00 | RADIOLOGY REPORT (SQ) ---
EXAM DESCRIPTION: U/S NON-OB PELVIS LTD W/O DOP IMAGES COMPLETED DATE/TIME: 03/10/2020 5:19 pm REASON FOR STUDY: Postmenopausal bleeding COMPARISON: None. TECHNIQUE: Dynamic and static grayscale images acquired of the pelvis via transabdominal approach an d recorded on PACS. Additional selected color Doppler and spectral images recorded. LIMITATIONS: Limited study due to bowel gas. FINDINGS: UTERUS: Contour normal. No mass. ENDOMETRIAL STRIPE: No focal or generalized thickening. No masses. CERVIX: No nabothian cysts. RIGHT OVARY AND DOPPLER: Ovary not visualized due to overlying bowel gas. LEFT OVARY AND DOPPLER: Ovary not visualized due to overlying bowel gas. FREE FLUID: None noted. OTHER: No other significant finding. MEASUREMENTS: UTERUS: 2.6 x 4.1 x 5.1 cm. ENDOMETRIAL STRIPE: 5 mm. RIGHT OVARY: Not visualized. LEFT OVARY: Not visualized. IMPRESSION: LIMITED STUDY. OVARIES NOT VISUALIZED. NO ABNORMAL FINDINGS IN THE UTERUS VISUALIZE D. TECHNICAL DOCUMENTATION: JOB ID: [id number] 2010 [employer]- All Rights Reserved Rev Reading location - IP/workstation name: [email or web address]
== END 2020-03-10 18:05 | disposition home or self-care (01) ==
LOC: ER 13:13
DX: E87.5 Hyperkalemia (principal); N95.0 Postmenopausal bleeding; I50.9 Heart failure, unspecified; I11.0 Hypertensive heart disease with heart failure; E78.00 Pure hypercholesterolemia, unspecified; E11.9 Type 2 diabetes mellitus without complications; Z86.73 Personal history of transient ischemic attack (TIA), and cerebral infarction without residual deficits
CPT/HCPCS: 36415; 76857; 80053; 84132; 85025; 85610; 85730; 99284

== ENCOUNTER 2020-03-15 22:19 | Inpatient (IN) | payer MEDICARE, OTHER ==
[2020-03-15 22:50] LABS: ABSOLUTE BASOPHILS # (AUTO) 0.1 10^3/uL (0.0-0.2); ABSOLUTE EOSINOPHILS # (AUTO) 0.3 10^3/uL (0.0-0.6); ABSOLUTE LYMPHOCYTES (AUTO) 1.7 10^3/uL (0.5-4.7); ABSOLUTE MONOCYTES (AUTO) 1.2 10^3/uL (0.1-1.4); BASOPHILS % (AUTO) 0.8 % (0-2); EOSINOPHILS % (AUTO) 3.1 % (0-6); HEMATOCRIT 29.5 % (36.0-47.0); HEMOGLOBIN 9.8 g/dL (12.0-15.5); LYMPHOCYTES % (AUTO) 20.2 % (13-45); MEAN CORPUSCULAR HEMOGLOBIN 24.1 pg (27.0-33.4); MEAN CORPUSCULAR HGB CONC 33.2 g/dL (32.0-36.0); MEAN CORPUSCULAR VOLUME 73 fl (80-97); MONOCYTES % (AUTO) 15.1 % (3-13); PLATELET COUNT 606 10^3/uL (150-450); RED BLOOD COUNT 4.07 10^6/uL (3.72-5.28); SEGMENTED NEUTROPHILS % (AUTO) 60.8 % (42-78); TOTAL CELLS COUNTED % (AUTO) 100 %; WHITE BLOOD COUNT 8.2 10^3/uL (4.0-10.5)
--- NOTE | 2020-03-15 22:51 | EKG REPORT ---
SEVERITY:- ABNORMAL ECG - SINUS RHYTHM INCOMPLETE RIGHT BUNDLE BRANCH BLOCK LEFT VENTRICULAR HYPERTROPHY : Confirmed by: Regino Aguayo MD 15-Mar-2020 22:49:32
[2020-03-15 23:01] LABS: ALBUMIN 3.9 g/dL (3.5-5.0); ALCOHOL < 10 mg/dL (NONE DETECTED); ALKALINE PHOSPHATASE 167 U/L (38-126); ANION GAP 8 (5-19); ASPARTATE AMINO TRANSFERASE 33 U/L (14-36); BILIRUBIN,DIRECT 0.2 mg/dL (0.0-0.4); BILIRUBIN,TOTAL 0.2 mg/dL (0.2-1.3); BLOOD UREA NITROGEN 35 mg/dL (7-20); CALCIUM 9.6 mg/dL (8.4-10.2); CARBON DIOXIDE 25 mmol/L (22-30); CHLORIDE 96 mmol/L (98-107); GLUCOSE 137 mg/dL (75-110)
[2020-03-15 23:02] LABS: POTASSIUM 6.2 mmol/L (3.6-5.0)
[2020-03-15 23:05] LABS: APPEARANCE,URINE SLIGHTLY-CLOUDY; BILIRUBIN,URINE NEGATIVE (NEGATIVE); COLOR,URINE STRAW; GLUCOSE, URINE NEGATIVE (NEGATIVE); KETONES,URINE NEGATIVE (NEGATIVE); LEUKOCYTE ESTERASE,URINE LARGE (NEGATIVE); NITRITE,URINE NEGATIVE (NEGATIVE); PROTEIN,URINE NEGATIVE (NEGATIVE); URINE SPECIFIC GRAVITY 1.005; UROBILINOGEN,URINE NEGATIVE mg/dL (<2.0)
[2020-03-15 23:37] LABS: URINE AMPHETAMINES SCREEN NEGATIVE; URINE BARBITURATES SCREEN NEGATIVE; URINE BENZODIAZEPINES SCREEN NEGATIVE; URINE COCAINE SCREEN NEGATIVE; URINE MARIJUANA (THC) SCREEN NEGATIVE; URINE METHADONE SCREEN NEGATIVE; URINE PHENCYCLIDINE SCREEN NEGATIVE
--- NOTE | 2020-03-15 23:38 | ER Document Report ---
ED General - General Chief Complaint: Dizziness Stated Complaint: DIZZY,LIGHTHEADED Primary Care Provider: CORAZON CARRION PA-C [Primary Care Provider] - Follow up as needed Mode of Arrival: Medic Information source: Patient, Emergency Med Personnel Notes: Patient is an 89-year-old female presenting to the emergency department chief complaint of dizziness shortness of breath and generalized weakness. Patient has been seen recently for a totally different complaint. Patient's states that the patient has been dizzy today and he was concerned for her wellbeing because she basically cannot take care of herself. He denies any recent change in medications no slip or falls however she is prone to falls and prone to pneumonia. TRAVEL OUTSIDE OF THE [place] IN LAST 30 DAYS: No - Related Data Allergies/Adverse Reactions: diazepam [From Valium] Allergy (Verified 03/10/20 13:46) Past Medical History - Social History Smoking Status: Never Smoker Frequency of alcohol use: None Drug Abuse: None Family History: Reviewed & Not Pertinent, CAD, Hypertension Patient has homicidal ideation: No - Past Medical History Cardiac Medical History: Reports: Hx Congestive Heart Failure, Hx Hypercholesterolemia, Hx Hypertension Denies: Hx Coronary Artery Disease, Hx Heart Attack Pulmonary Medical History: Reports: Hx COPD, Hx Pneumonia, Hx Respiratory Failure Denies: Hx Asthma, Hx Bronchitis, Hx Tuberculosis Neurological Medical History: Reports: Hx Cerebrovascular Accident. 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 Denies: Hx Hysterectomy - Immunizations Hx Diphtheria, Pertussis, Tetanus Vaccination: Yes Hx Pneumococcal Vaccination: 06/14/12 Review of Systems - Review of Systems Notes: REVIEW OF SYSTEMS: CONSTITUTIONAL : Denies fever, chills, or sweats. Patient reports generalized weakness EENT: Denies eye, ear, throat, or mouth pain or symptoms. Denies nasal or sinus congestion. CARDIOVASCULAR: Denies chest pain. RESPIRATORY: Denies cough, cold, or chest congestion. Denies shortness of breath, difficulty breathing, or wheezing. GASTROINTESTINAL: Denies abdominal pain. Denies nausea, vomiting, or diarrhea. Denies constipation. GENITOURINARY: Denies difficulty urinating, painful urination, burning, frequency, or blood in urine. MUSCULOSKELETAL: Denies neck or back pain or joint pain or swelling. SKIN: Denies rash or skin lesions. HEMATOLOGIC : Denies easy bruising or bleeding. NEUROLOGICAL: Per HPI PSYCHIATRIC: Denies suicidal or homicidal ideations 10 Systems are negative unless otherwise specified above Physical Exam - Vital signs Vitals: Resp Pulse Ox 12 96 03/15/20 22:27 03/15/20 22:27 - Notes Notes: PHYSICAL EXAMINATION: GENERAL: Patient is an 89-year-old female presenting to the emergency department chief complaint of dizziness and generalized weakness HEAD: Atraumatic, normocephalic. EYES: Pupils equal round and reactive to light, extraocular movements intact, sclera anicteric, conjunctiva are normal. ENT: nares patent, oropharynx clear without exudates. Tachy mucous membranes. NECK: Normal range of motion, supple without lymphadenopathy, no appreciable JVD LUNGS: No obvious wheezes rales or rhonchi however there are crackles to the bases HEART: Regular rhythm and rate however patient does have a holosystolic murmur best heard over left chest ABDOMEN: Soft, nontender, normal bowel sounds. No guarding, no rebound. No masses appreciated. EXTREMITIES: Active full range of motion, no pitting or edema. No cyanosis. 2+ pulses x4 NEUROLOGICAL: No focal neurological deficits. Moves all extremities spontaneously and on command. However patient does show signs of some confusion SKIN: Warm, Dry, and intact. Normal turgor, no rashes or lesions noted. Course - Re-evaluation Re-evalutation: 03/15/20 23:49 Patient has been found to have elevated potassium level of 6.2. I have ordered calcium gluconate IV albuterol nebulizer insulin and glucose for initiation of normalization. Patient is also been found to have a urinary tract infection however I informed nursing staff to wait approximately half an hour after treating hyperkalemia until giving the Rocephin because of possible interaction between calcium and Rocephin. Currently waiting on radiologic results as well as remainder of the patient's lab work. 03/16/20 00:37 Patient has remained stable while in emergency department patient has been maintained on a pin maker without signs of decompensation. Patient is being treated as mentioned above I have spoken with the hospitalist who is agreeable with admission for same. Currently patient's heart rate is 75 blood pressure is 92/79 and will be placed on 2 L of oxygen nasal cannula. 03/16/20 00:42 On reevaluation patient apparently was moving during the last set of vital signs. Currently heart rate of 96 oxygen saturation on room air is 94 and blood pressure 126/84. I did discuss with the patient and her the need for admission both are agreeable with same. Patient is stable at this time. - Vital Signs Vital signs: Temp Pulse Resp BP Pulse Ox 98.7 F 73 17 146/50 H 94 03/15/20 22:45 03/15/20 22:46 03/15/20 23:19 03/15/20 23:19 03/15/20 23:19 - Laboratory Result Diagrams: 03/15/20 22:32 03/15/20 22:32 Laboratory results interpreted by me: 03/15/20 03/15/20 03/15/20 22:32 22:32 22:43 Hgb 9.8 L Hct 29.5 L MCV 73 L MCH 24.1 L RDW 19.0 H Plt Count 606 H [place] % (Auto) 15.1 H Sodium 128.8 L Potassium 6.2 H* Chloride 96 L BUN 35 H Glucose 137 H POC Glucose Alkaline Phosphatase 167 H Ur Leukocyte Esterase LARGE H 03/15/20 23:49 Hgb Hct MCV MCH RDW Plt Count [place] % (Auto) Sodium Potassium Chloride BUN Glucose POC Glucose 152 H Alkaline Phosphatase Ur Leukocyte Esterase - Diagnostic Test Radiology reviewed: Reports reviewed - EKG Interpretation by Me EKG shows normal: Sinus rhythm Rate: Normal Rhythm: NSR [place]/QRS: RBBB - All Voltage: Consistent with LVH When compared to previous EKG there are: No significant change Critical Care Note - Critical Care Note Total time excluding time spent on procedures (mins): 40 Comments: Please allow 40 minutes of critical care time spent obtaining history from patient or surrogate, discussions with consultants, development of treatment plan with patient or surrogate, evaluation of patient's response to treatment, examination of patient. This also includes ordering and reviewing laboratory, EKG and / or radiologic studies, performing and reassessing treatments and interventions as well as reviewing previous visits and old charts. This is exclusive of separately billable procedures. Discharge - Discharge Clinical Impression: Hyponatremia, Hyperkalemia, Dizziness Condition: Stable Disposition: ADMITTED OBSERVATION Admitting Provider: Ayesha (Hospitalist) Unit Admitted: Medical Floor Referrals: CORAZON CARRION PA-C [Primary Care Provider] - Follow up as needed
[2020-03-15] MEDS ORDERED: CALCIUM GLUCONATE 1000 MG/10 ML INJ IV ONE (23:45)
[2020-03-15] MEDS ORDERED: DEXTROSE 50%-WATER 25 GM/50 ML DISP.SYRIN IV ONE (23:46)
[2020-03-15] MEDS ORDERED: INSULIN REG, HUMAN 100 UNIT/ML 3 ML VIAL (PYX) IV ONE (23:46)
--- NOTE | 2020-03-15 23:49 | RADIOLOGY REPORT (SQ) ---
CLINICAL HISTORY: cough COMPARISON: 01/28/2020. TECHNIQUE: XR CHEST 1 VIEW 03/15/2020 10:37 PM CDT FINDINGS: The heart is borderline in size. There is minimal right basilar airspace disease.. There is no pleural effusion. There is no pneumothorax. There are no acute osseous findings. Right diaphragm is elevated. IMPRESSION: Questionable right basilar pneumonia.
--- NOTE | 2020-03-15 23:50 | RADIOLOGY REPORT (SQ) ---
CLINICAL HISTORY: weakness, h/o stroke, tia COMPARISON: 01/28/2020. TECHNIQUE: CT HEAD WITHOUT IV CONTRAST on 03/15/2020 10:36 PM CDT This exam was performed according to our departmental dose-optimization program, which includes automated exposure control, adjustment of the mA and/or kV according to patient size and/or use of iterative reconstruction technique. FINDINGS: There is no acute hemorrhage, mass effect or midline shift. There is an old lacunar infarct in the right basal ganglia laterally. There is no hydrocephalus. There is no significant volume loss for age. The calvarium is intact. Orbits and globes are unremarkable. The paranasal sinuses are clear. Mastoid air cells are clear. IMPRESSION: No acute intracranial findings.
[2020-03-15] MEDS ORDERED: CEFTRIAXONE 1 GM/D5W RTU 1 GM/50 ML RTUPB IV ONE (23:59)
[2020-03-16 00:13] LABS: CREATINE KINASE MB 3.58 ng/mL (<4.55); NT PRO BNP 394 pg/mL (<450)
[2020-03-16 00:24] LABS: TROPONIN I < 0.012 ng/mL
[2020-03-16] MEDS ORDERED: DEXTROSE 40% GEL 15 GM TUBE PO PRN ×2 (01:14)
[2020-03-16] MEDS ORDERED: DEXTROSE 50%-WATER 25 GM/50 ML DISP.SYRIN IV PRN ×2 (01:14)
[2020-03-16] MEDS ORDERED: MAGNESIUM HYDROXIDE SUSP 30 ML UDCUP PO PRN (01:14)
[2020-03-16] MEDS ORDERED: GLUCAGON,HUMAN RECOMB 1 MG INJ IM PRN (01:14)
[2020-03-16] MEDS ORDERED: LEVALBUTEROL HCL NEB 0.63 MG/3 ML AMPUL NEB PRN (01:14)
[2020-03-16] MEDS ORDERED: MAG HYDROX/AL HYDROX/SIMETH SUSP 30 ML UDCUP PO PRN (01:14)
[2020-03-16] MEDS ORDERED: METOPROLOL TARTRATE PF/INJ 5 MG/5 ML SDV IV PRN (01:20)
[2020-03-16] MEDS ORDERED: MORPHINE SULFATE 10 MG/ML INJ IV PRN ×4 (01:20→01:37)
[2020-03-16] MEDS ORDERED: MELATONIN 5 MG TABLET PO PRN (01:20)
[2020-03-16] MEDS ORDERED: GUAIFENESIN SYRP 200 MG/10 ML UDC PO PRN (01:20)
[2020-03-16] MEDS ORDERED: ACETAMINOPHEN 325 MG TABLET PO PRN (01:20)
[2020-03-16] MEDS ORDERED: HALOPERIDOL LACTATE INJ 5 MG/1 ML VIAL IV PRN (01:21)
[2020-03-16] MEDS: NORMAL SALINE 1000 ML 1,000 ML IV PRN ×2 (04:13→17:36)
--- NOTE | 2020-03-16 05:13 | PDOC H&P ---
History of Present Illness Admission Date/PCP: 03/16/2020 00:42 CORAZON CARRION PA-C Patient complains of: Lightheadedness/dizziness History of Present Illness: SANDY URRUTIA is a 89 year old female who presented to the emergency room with a 2-day history of lightheadedness/dizziness. The patient was noted to have dementia and her historical input is of limited reliability. She admits dev eloping lightheadedness 2 days ago with gradual worsening resulting in her presentation to the emergency room for evaluation and treatment. Her lightheadedness was accompanied by mild generalized weakness and was associated with mild dyspnea. She denies other associated or accompanying signs and s ymptoms. She admits prior similar episodes with past illnesses. In the emergency room she was noted to have pyuria and was also clinically dehydrated. Her serum sodium was 128 and potassium was 6.2. Her hyperkalemia was treated with an IV medication cocktail in the ER. Blood and urine cultures were obtained. IV antibiotic therapy was initiated. She was subsequently admitted to the hospital for further evaluation and treatment. Past Medical History Cardiac Medical History: Reports: Congestive Heart Failure, Hyperlipidema, Hypertension Denies: Atrial Fibrillation, Coronary Artery Disease, DVT, Myocardial Infarction, Peripheral Vascular Disease, Pulmonary Embolism Pulmonary Medical History: Reports: Chronic Obstructive Pulmonary Disease (COPD), Pneumonia, Respiratory Failure Denies: Asthma, Bronchitis, Tuberculosis EENT Medical History: Denies: Cataracts, Ears - Hearing aids Neurological Medical History: Denies: Hemorrhagic CVA, Ischemic CVA, Seizures Endocrine Medical History: Reports: Diabetes Mellitus Type 2, Hypothyroidism Denies: Diabetes Mellitus Type 1, Hyperthyroidism Renal/ Medical History: Denies: Chronic Kidney Disease, Nephrolithiasis Malignancy Medical History: Reports: Breast Cancer GI Medical History: Reports: Gastroesophageal Reflux Disease Denies: Cirrhosis, Hepatitis, Peptic Ulcer Disease Musculoskeltal Medical History: Reports: Arthritis - Neck Denies: Fibromyalgia Skin Medical History: Denies: Eczema, Psoriasis Psychiatric Medical History: Reports: Dementia Denies: Alcohol Dependency, Depression, Substance Abuse, Tobacco Dependency Traumatic Medical History: Reports: None Hematology: Reports: Anemia, Bleeding Tendencies Infectious Medical History: Reports: None Past Surgical History Past Surgical History: Reports: Appendectomy, Cholecystectomy, Mastectomy - right, Other - Colonoscopy with biopsy Social History Information Source: Patient, [facility] Records Lives with: Spouse/Significant other Smoking Status: Former Smoker Electronic Cigarette use?: No Frequency of Alcohol Use: None Hx Recreational Drug Use: No Drugs: None Hx Prescription Drug Abuse: No - Advance Directive Resuscitation Status: Full Code Surrogate healthcare decision maker:: Dex Urrutia Family History Family History: CAD, Hypertension Parental Family History Reviewed: Yes Children Family History Reviewed: No Sibling(s) Family History Reviewed.: Yes Medication/Allergy Home Medications: Acetaminophen [Tylenol 325 mg Tablet] 650 mg PO Q4HP PRN 01/29/20 Anastrozole [Arimidex 1 mg Tablet] 1 mg PO DAILY 01/29/20 Aspirin [Ecotrin 81 mg EC Tablet] 81 mg PO DAILY 01/29/20 Atorvastatin Calcium [Lipitor 20 mg Tablet] 20 mg PO QHS 01/29/20 C,E,Zinc,Copper 11/Anjdr0g/Lut [Ocuvite Adult 50 Plus Softgel] 1 cap PO DAILY 01/29/20 Calcium Carbonate/Vitamin D3 [Calcium 500 mg-Vit D3 600 Unit] 1 tab PO DAILY 01/29/20 Carvedilol [Coreg 12.5 mg Tablet] 12.5 mg PO Q12 01/29/20 Cholestyramine [Questran 4 gm Packet] 4 gm PO BID 01/29/20 Clonidine HCl [Catapres 0.1 mg Tablet] 0.3 mg PO QHS 01/29/20 Docusate Sodium [Colace 100 mg Capsule] 100 mg PO BID 01/29/20 Eplerenone [Inspra 25 mg Tablet] 25 mg PO DAILY #0 01/29/20 Escitalopram Oxalate [Lexapro 10 mg Tablet] 20 mg PO DAILY 01/29/20 Furosemide [Lasix 20 mg Tablet] 20 mg PO BID 01/29/20 Hydralazine HCl 100 mg PO TID 01/29/20 Levothyroxine Sodium [Synthroid 0.15 mg Tablet] 0.15 mg PO Q6AM 01/29/20 Losartan Potassium [Cozaar 50 mg Tablet] 50 mg PO DAILY #0 01/29/20 Magnesium Oxide [Mag-Ox 400 mg Tablet] 400 mg PO DAILY 01/29/20 Metformin HCl [Glucophage 500 mg Tablet] 500 mg PO BID 01/29/20 Multivitamin 1 tab PO DAILY 01/29/20 Nifedipine [Nifedipine ER] 60 mg PO DAILY 01/29/20 Pantoprazole Sodium [Protonix [address] Tablet] 40 mg PO BID 01/29/20 Ropinirole HCl [Requip 2 mg Tablet] 2 mg PO Q12 01/29/20 Allergies/Adverse Reactions: diazepam [From Valium] Allergy (Verified 03/10/20 13:46) Review of Systems Constitutional: PRESENT: as per HPI, weakness - Generalized. ABSENT: chills, fever(s) Eyes: ABSENT: visual disturbances, other - Eye pain Ears: ABSENT: hearing changes, other - Ear pain Nose, Mouth, and Throat: ABSENT: headache(s), sore throat Cardiovascular: PRESENT: other - Lightheadedness. ABSENT: chest pain, palpitations Respiratory: PRESENT: as per HPI, dyspnea. ABSENT: cough Gastrointestinal: ABSENT: abdominal pain, constipation, diarrhea, nausea, vomiting Genitourinary: ABSENT: dysuria, hematuria Integumentary: ABSENT: pruritus, rash Neurological: ABSENT: confusion, convulsions, focal weakness, memory loss, syncope Psychiatric: ABSENT: anxiety, depression Endocrine: ABSENT: cold intolerance, heat intolerance Hematologic/Lymphatic: ABSENT: easy bleeding, easy bruising Allergic/Immunologic: ABSENT: seasonal rhinorrhea Physical Exam Vital Signs: Temp Pulse Resp BP Pulse Ox 98.7 F 73 17 146/50 H 94 03/15/20 22:45 03/15/20 22:46 03/15/20 23:19 03/15/20 23:19 03/15/20 23:19 General appearance: PRESENT: no acute distress, cooperative Head exam: PRESENT: atraumatic, normocephalic Eye exam: PRESENT: conjunctiva pink. ABSENT: conjunctival injection, scleral icterus Ear exam: PRESENT: bleeding, drainage, normal external ear exam Mouth exam: PRESENT: dry mucosa, neck supple Neck exam: ABSENT: thyromegaly, tracheal deviation Respiratory exam: PRESENT: clear to auscultation stella, symmetrical, unlabored Cardiovascular exam: PRESENT: RRR. ABSENT: clicks, gallop, rubs Pulses: PRESENT: normal radial pulses, normal dorsalis pedis pul Vascular exam: PRESENT: normal capillary refill. ABSENT: pallor GI/Abdominal exam: PRESENT: normal bowel sounds, soft Rectal exam: PRESENT: deferred Extremities exam: ABSENT: joint swelling, pedal edema Musculoskeletal exam: ABSENT: deformity, dislocation Neurological exam: PRESENT: alert, oriented to person, CN II-XII grossly intact, other - Mildly confused Psychiatric exam: PRESENT: appropriate affect, normal mood Skin exam: PRESENT: dry, intact, warm. ABSENT: jaundice, rash, urticaria Results Laboratory Results: 03/15/20 22:32 03/15/20 22:32 03/15/20 03/15/20 03/15/20 22:32 22:32 22:43 WBC 8.2 RBC 4.07 Hgb 9.8 L Hct 29.5 L MCV 73 L MCH 24.1 L MCHC 33.2 RDW 19.0 H Plt Count 606 H Seg Neutrophils % 60.8 Sodium 128.8 L Potassium 6.2 H* Chloride 96 L Carbon Dioxide 25 Anion Gap 8 BUN 35 H Creatinine 0.84 Est GFR ( Amer) > 60 Glucose 137 H Calcium 9.6 Magnesium 1.9 Total Bilirubin 0.2 AST 33 Alkaline Phosphatase 167 H Total Protein 7.0 Albumin 3.9 Urine Color STRAW Urine Appearance SLIGHTLY-CLOUDY Urine pH 5.0 Ur Specific [place] 1.005 Urine Protein NEGATIVE Urine Glucose (UA) NEGATIVE Urine Ketones NEGATIVE Urine Blood NEGATIVE Urine Nitrite NEGATIVE Ur Leukocyte Esterase LARGE H Urine WBC (Auto) 55 Urine RBC (Auto) 2 03/15/20 03/15/20 22:32 22:32 Creatine Kinase 78 CK-MB (CK-2) 3.58 Troponin I < 0.012 NT-Pro-B Natriuret Pep 394 Impressions: Head CT 03/15/20 22:36 IMPRESSION: No acute intracranial findings. Chest X-Ray 03/15/20 22:37 IMPRESSION: Questionable right basilar pneumonia. Assessment and Plan - Diagnosis (1) Hyperkalemia Is this a current diagnosis for this admission?: Yes (2) UTI (urinary tract infection) Qualifiers: Urinary tract infection type: site unspecified Hematuria presence: without hematuria Qualified Code(s): N39.0 - Urinary tract infection, site not specified Is this a current diagnosis for this admission?: Yes (3) Hyponatremia Is this a current diagnosis for this admission?: Yes (4) Dementia Qualifiers: Dementia type: Alzheimer's disease Alzheimer's disease onset: late-onset Dementia behavioral disturbance: without behavioral disturbance Qualified Code(s): G30.1 - Alzheimer's disease with late onset; F02.80 - Dementia in other diseases classified elsewhere without behavioral disturbance Is this a current diagnosis for this admission?: Yes (5) Hypothyroidism Qualifiers: Hypothyroidism type: unspecified Qualified Code(s): E03.9 - Hypothyroidism, unspecified Is this a current diagnosis for this admission?: Yes (6) Diabetes mellitus type 2 in nonobese Is this a current diagnosis for this admission?: Yes (7) CHF (congestive heart failure) Qualifiers: Heart failure type: unspecified Heart failure chronicity: chronic Qualified Code(s): I50.9 - Heart failure, unspecified Is this a current diagnosis for this admission?: Yes (8) HLD (hyperlipidemia) Qualifiers: Hyperlipidemia type: unspecified Qualified Code(s): E78.5 - Hyperlipidemia, unspecified Is this a current diagnosis for this admission?: Yes (9) HTN (hypertension) Qualifiers: Hypertension type: essential hypertension Qualified Code(s): I10 - [place] l (primary) hypertension Is this a current diagnosis for this admission?: Yes - Plan Summary Summary: Patient will be admitted to the medical floor where she will receive routine supportive and symptomatic cares. A hyperkalemia therapeutic IV cocktail was administered in the ER. Antibiotic therapy will be continued utilizing Rocephin 1 g IV daily. Before meals and at bedtime Accu-Cheks will be obtained with sliding scale insulin for hyper glycemia and a hypoglycemic protocol in place. Patient will be treated with a cardiac and diabetic restricted diet. She will receive IV fluids utilizing normal saline at 167 mL an hour initially. Serial metabolic profiles will be obtained. CBCs and other laboratory and/or radiog raphic evaluations will be obtained as needed. Patient will receive Haldol 2 mg IV every 4 hours as needed for anxiety or restlessness. She will receive morphine sulfate 2 to 4 mg IV every 2 hours as needed for pain. The patient's usual home medication regiment will be continued, as appropriate, once her medication list has been verified and reconciled. - Time Time Spent with patient: Less than 15 minutes Medications reviewed and adjusted accordingly: Yes Anticipated Discharge Disposition: Home with Home Health Anticipated Discharge Timeframe: within 72 hours - Inpatient Certification Based on my medical assessment, after consideration of the patient's comorbidities, presenting symptoms, or acuity I expect that the services needed warrant INPATIENT care.: Yes I certify that my determination is in accordance with my understanding of Medicare's requirements for reasonable and necessary INPATIENT services [42 CFR 412.3e].: Yes Medical Necessity: Need Close Monitoring Due to Risk of Patient Decompensation, Need For IV Fluids, Need For Continuous Telemetry Monitoring, Risk of Compli cation if Not Cared For in Hospital
[2020-03-16] MEDS: HEPARIN SOD (PORCINE) 5,000 UNIT/ML 1 ML VIAL SUBCUT SCH ×3 (05:42→21:36)
[2020-03-16] MEDS: INSULIN REG, HUMAN 100 UNIT/ML 3 ML VIAL (PYX) SUBCUT SCH ×4 (07:34→21:31)
[2020-03-16] MEDS: FAMOTIDINE 20 MG TABLET PO SCH ×2 (10:22→21:37)
[2020-03-16] MEDS: DOCUSATE SODIUM 100 MG CAPSULE PO SCH ×2 (10:22→17:30)
[2020-03-16 11:05] LABS: ANION GAP 8 (5-19); BLOOD UREA NITROGEN 30 mg/dL (7-20); CALCIUM 9.4 mg/dL (8.4-10.2); CARBON DIOXIDE 23 mmol/L (22-30); CHLORIDE 102 mmol/L (98-107); GLUCOSE 143 mg/dL (75-110); POTASSIUM 5.9 mmol/L (3.6-5.0)
--- NOTE | 2020-03-16 15:08 | Progress Note ---
Provider Note Provider Note: Patient admitted early this morning with dehydration and hyperkalemia. She is been getting some IV fluids and resting. Potassium is starting to trend down. Will monitor urine output and electrolytes, continue on telemetry.
[2020-03-17 04:31] LABS: HEMATOCRIT 30.4 % (36.0-47.0); MEAN CORPUSCULAR HEMOGLOBIN 23.9 pg (27.0-33.4); MEAN CORPUSCULAR VOLUME 73 fl (80-97); PLATELET COUNT 605 10^3/uL (150-450); RED CELL DISTRIBUTION WIDTH 19.1 % (11.5-14.0); WHITE BLOOD COUNT 6.5 10^3/uL (4.0-10.5)
[2020-03-17 05:02] LABS: ANION GAP 7 (5-19); BLOOD UREA NITROGEN 22 mg/dL (7-20); CALCIUM 9.6 mg/dL (8.4-10.2); CARBON DIOXIDE 26 mmol/L (22-30); CHLORIDE 102 mmol/L (98-107); GLUCOSE 105 mg/dL (75-110); POTASSIUM 5.4 mmol/L (3.6-5.0); TRIGLYCERIDES 124 mg/dL (<150)
[2020-03-17 05:12] LABS: DIRECT LDL 71 mg/dL (<100)
[2020-03-17] MEDS: NORMAL SALINE 1000 ML 1,000 ML IV PRN (05:37)
[2020-03-17] MEDS: HEPARIN SOD (PORCINE) 5,000 UNIT/ML 1 ML VIAL SUBCUT SCH ×3 (05:37→21:11)
[2020-03-17] MEDS: INSULIN REG, HUMAN 100 UNIT/ML 3 ML VIAL (PYX) SUBCUT SCH ×4 (08:30→21:05)
[2020-03-17] MEDS: FAMOTIDINE 20 MG TABLET PO SCH ×2 (09:07→21:11)
[2020-03-17] MEDS: DOCUSATE SODIUM 100 MG CAPSULE PO SCH ×2 (09:07→17:14)
--- NOTE | 2020-03-17 15:17 | PDOC PROGRESS REPORT ---
Subjective Progress Note for:: 03/17/20 Subjective:: No adverse events overnight. No new complaints. She been eating and drinking without difficulty. She does not seem to really know what is going on. She does not know why she is here or how she got here. She is awake and alert. I do not know what her normal mental status is like. Reason For Visit: HYPERKALEMIA,UTI,HYPONATREMIA Physical Exam Vital Signs: Temp Pulse Resp BP Pulse Ox 98.1 F 70 16 108/48 L 96 03/17/20 10:00 03/17/20 09:16 03/17/20 09:16 03/17/20 08:25 03/17/20 09:16 Intake & Output 03/16/20 03/17/20 03/18/20 06:59 06:59 06:59 Intake Total 50 2600 1000 Output Total 50 Balance 0 2600 1000 Weight 59.9 kg 58.5 kg General appearance: PRESENT: no acute distress, cooperative, disheveled Teeth exam: PRESENT: edentulous Respiratory exam: PRESENT: clear to auscultation stella, symmetrical, unlabored. ABSENT: accessory muscle use, chest wall tenderness, crackles, prolonged expiratory phas, rhonchi, tachypnea, wheezes Cardiovascular exam: PRESENT: RRR, +S1, +S2 Pulses: PRESENT: normal carotid pulses Vascular exam: PRESENT: normal capillary refill GI/Abdominal exam: PRESENT: normal bowel sounds, soft. ABSENT: distended, guarding, rebound, tenderness Extremities exam: ABSENT: clubbing, pedal edema Musculoskeletal exam: PRESENT: other - She prefers to lay with her knees flexed and her hips flexed, abducted, and her pelvis rotated to the left Neurological exam: PRESENT: alert, awake, oriented to person, oriented to place. ABSENT: oriented to situation Skin exam: PRESENT: dry, warm Results Laboratory Results: 03/17/20 03:39 03/17/20 03:39 03/17/20 03/17/20 03/17/20 03:39 03:39 03:39 WBC 6.5 RBC 4.20 Hgb 10.0 L Hct 30.4 L MCV 73 L MCH 23.9 L MCHC 33.0 RDW 19.1 H Plt Count 605 H Sodium 134.7 L Potassium 5.4 H Chloride 102 Carbon Dioxide 26 Anion Gap 7 BUN 22 H Creatinine 0.79 Est GFR ( Amer) > 60 Glucose 105 Calcium 9.6 Magnesium 2.0 Triglycerides 124 Cholesterol 136.50 LDL Cholesterol Direct 71 VLDL Cholesterol 25.0 HDL Cholesterol 38 L TSH 0.58 03/15/20 03/15/20 22:32 22:32 Creatine Kinase 78 CK-MB (CK-2) 3.58 Troponin I < 0.012 NT-Pro-B Natriuret Pep 394 Impressions: Head CT 03/15/20 22:36 IMPRESSION: No acute intracranial findings. Chest X-Ray 03/15/20 22:37 IMPRESSION: Questionable right basilar pneumonia. Assessment and Plan - Diagnosis (1) Hyperkalemia Is this a current diagnosis for this admission?: Yes Plan: Improving with hydration and cessation of Aldactone (2) Hyponatremia Is this a current diagnosis for this admission?: Yes Plan: Essentially resolved (3) Acute encephalopathy Is this a current diagnosis for this admission?: Yes Plan: I believe this is resolved. I think she is probably at her baseline. (4) Dizziness Is this a current diagnosis for this admission?: Yes Plan: Resolved (5) Dementia Qualifiers: Dementia type: unspecified type Dementia behavioral disturbance: without behavioral disturbance Qualified Code(s): F03.90 - Unspecified dementia without behavioral disturbance Is this a current diagnosis for this admission?: Yes Plan: Believe her mental status is at baseline - Plan Summary Summary: Patient will be admitted to the medical floor where she will receive routine supportive and symptomatic cares. A hyperkalemia therapeutic IV cocktail was administered in the ER. Antibiotic therapy will be continued utilizing Rocephin 1 g IV daily. Before meals and at bedtime Accu-Cheks will be obtained with sliding scale insulin for hyper glycemia and a hypoglycemic protocol in place. Patient will be treated with a cardiac and diabetic restricted diet. She will receive IV fluids utilizing normal saline at 167 mL an hour initially. Serial metabolic profiles will be obtained. CBCs and other laboratory and/or radiographic evaluations will be obtained as needed. Patient will receive Haldol 2 mg IV every 4 hours as needed for anxiety or restlessness. She will receive morphine sulfate 2 to 4 mg IV every 2 hours as needed for pain. The patient's usual home medication regiment will be continued, as appropriate, once her medication list has been verified and reconciled. - Time Time Spent with patient: 15-24 minutes Anticipated Discharge Disposition: Home with Home Health Anticipated Discharge Timeframe: within 72 hours
[2020-03-18] MEDS: HYDRALAZINE HCL INJ/PF 20 MG/1 ML SDV IV PRN (00:40)
[2020-03-18] MEDS: HEPARIN SOD (PORCINE) 5,000 UNIT/ML 1 ML VIAL SUBCUT SCH ×3 (05:35→22:20)
[2020-03-18] MEDS: INSULIN REG, HUMAN 100 UNIT/ML 3 ML VIAL (PYX) SUBCUT SCH ×4 (07:43→22:19)
[2020-03-18] MEDS: DOCUSATE SODIUM 100 MG CAPSULE PO SCH ×2 (09:57→17:09)
[2020-03-18] MEDS: FAMOTIDINE 20 MG TABLET PO SCH ×2 (09:57→22:20)
[2020-03-18 09:58] LABS: ANION GAP 15 (5-19); BLOOD UREA NITROGEN 14 mg/dL (7-20); CALCIUM 8.9 mg/dL (8.4-10.2); CARBON DIOXIDE 21 mmol/L (22-30); CHLORIDE 95 mmol/L (98-107); GLUCOSE 188 mg/dL (75-110); POTASSIUM 4.6 mmol/L (3.6-5.0)
--- NOTE | 2020-03-18 15:57 | PDOC PROGRESS REPORT ---
Subjective Progress Note for:: 03/18/20 Subjective:: No adverse events overnight. No new complaints. Vital signs been stable. She has been eating and drinking without difficulty. No chest pain or palpitations. Reason For Visit: HYPERKALEMIA,UTI,HYPONATREMIA Physical Exam Vital Signs: Temp Pulse Resp BP Pulse Ox 97.5 F 68 12 149/56 H 97 03/18/20 11:21 03/18/20 14:00 03/18/20 11:21 03/18/20 11:21 03/18/20 11:21 Intake & Output 03/17/20 03/18/20 03/19/20 06:59 06:59 06:59 Intake Total 2600 1900 Balance 2600 1900 Weight 58.5 kg 58.3 kg General appearance: PRESENT: no acute distress, cooperative, disheveled Teeth exam: PRESENT: edentulous Respiratory exam: PRESENT: clear to auscultation stella, symmetrical, unlabored. ABSENT: accessory muscle use, chest wall tenderness, crackles, prolonged expiratory phas, rhonchi, tachypnea, wheezes Cardiovascular exam: PRESENT: RRR, +S1, +S2 Pulses: PRESENT: normal carotid pulses Vascular exam: PRESENT: normal capillary refill GI/Abdominal exam: PRESENT: normal bowel sounds, soft. ABSENT: distended, guarding, rebound, tenderness Extremities exam: ABSENT: clubbing, pedal edema Musculoskeletal exam: PRESENT: other - She prefers to lay with her knees flexed and her hips flexed, abducted, and her pelvis rotated to the left Neurological exam: PRESENT: alert, awake, oriented to person, oriented to place. ABSENT: oriented to situation Skin exam: PRESENT: dry, warm Results Laboratory Results: 03/17/20 03:39 03/18/20 08:42 03/18/20 08:42 Sodium 130.8 L Potassium 4.6 Chloride 95 L Carbon Dioxide 21 L Anion Gap 15 BUN 14 Creatinine 0.49 L Est GFR ( Amer) > 60 Glucose 188 H Calcium 8.9 03/15/20 03/15/20 22:32 22:32 Creatine Kinase 78 CK-MB (CK-2) 3.58 Troponin I < 0.012 NT-Pro-B Natriuret Pep 394 Impressions: Head CT 03/15/20 22:36 IMPRESSION: No acute intracranial findings. Chest X-Ray 03/15/20 22:37 IMPRESSION: Questionable right basilar pneumonia. Assessment and Plan - Diagnosis (1) Hyperkalemia Is this a current diagnosis for this admission?: Yes Plan: Resolved (2) Hyponatremia Is this a current diagnosis for this admission?: Yes Plan: Essentially resolved (3) Acute encephalopathy Is this a current diagnosis for this admission?: Yes Plan: I believe this is resolved. I think she is probably at her baseline. (4) Dizziness Is this a current diagnosis for this admission?: Yes Plan: Resolved (5) Dementia Qualifiers: Dementia type: unspecified type Dementia behavioral disturbance: without behavioral disturbance Qualified Code(s): F03.90 - Unspecified dementia without behavioral disturbance Is this a current diagnosis for this admission?: Yes Plan: Believe her mental status is at baseline. Her would like to see if we can get her into rehab, and this may not be a bad idea for this patient. We will send out referrals. - Plan Summary Summary: Patient will be admitted to the medical floor where she will receive routine supportive and symptomatic cares. A hyperkalemia therapeutic IV cocktail was administered in the ER. Antibiotic therapy will be continued utilizing Rocephin 1 g IV daily. Before meals and at bedtime Accu-Cheks will be obtained with sliding scale insulin for hyper glycemia and a hypoglycemic protocol in place. Patient will be treated with a cardiac and diabetic restricted diet. She will r eceive IV fluids utilizing normal saline at 167 mL an hour initially. Serial metabolic profiles will be obtained. CBCs and other laboratory and/or radiographic evaluations will be obtained as needed. Patient will receive Haldol 2 mg IV every 4 hours as needed for anxiety or restlessness. She will receive morphine sulfate 2 to 4 mg IV every 2 hours as needed for pain. The patient's usual home medication regiment will be continued, as appropriate, once her medication list has been verified and reconciled. - Time Time Spent with patient: 15-24 minutes Anticipated Discharge Disposition: Care Home Facility Anticipated Discharge Timeframe: within 72 hours
[2020-03-19] MEDS: HEPARIN SOD (PORCINE) 5,000 UNIT/ML 1 ML VIAL SUBCUT SCH ×3 (05:49→21:39)
[2020-03-19] MEDS: DOCUSATE SODIUM 100 MG CAPSULE PO SCH ×2 (09:04→17:11)
[2020-03-19] MEDS: INSULIN REG, HUMAN 100 UNIT/ML 3 ML VIAL (PYX) SUBCUT SCH ×4 (09:07→21:36)
[2020-03-19] MEDS: FAMOTIDINE 20 MG TABLET PO SCH ×2 (09:08→21:39)
--- NOTE | 2020-03-19 17:19 | PDOC PROGRESS REPORT ---
Subjective Progress Note for:: 03/19/20 Subjective:: No adverse events overnight. No new complaints. Vital signs been stable. She has been eating and drinking without difficulty. No chest pain or palpitations. She is agreeable to going to a rehab center. Reason For Visit: HYPERKALEMIA,UTI,HYPONATREMIA Physical Exam Vital Signs: Temp Pulse Resp BP Pulse Ox 98.7 F 84 12 136/64 H 94 03/19/20 16:00 03/19/20 16:00 03/19/20 16:00 03/19/20 16:00 03/19/20 12:00 Intake & Output 03/18/20 03/19/20 03/20/20 06:59 06:59 06:59 Intake Total 1900 Balance 1900 Weight 58.3 kg 58.5 kg General appearance: PRESENT: no acute distress, cooperative, disheveled Teeth exam: PRESENT: edentulous Respiratory exam: PRESENT: clear to auscultation stella, symmetrical, unlabored. ABSENT: accessory muscle use, chest wall tenderness, crackles, prolonged expiratory phas, rhonchi, tachypnea, wheezes Cardiovascular exam: PRESENT: RRR, +S1, +S2 Pulses: PRESENT: normal carotid pulses Vascular exam: PRESENT: normal capillary refill GI/Abdominal exam: PRESENT: normal bowel sounds, soft. ABSENT: distended, guarding, rebound, tenderness Extremities exam: ABSENT: clubbing, pedal edema Neurological exam: PRESENT: alert, awake, oriented to person, oriented to place. ABSENT: oriented to situation Skin exam: PRESENT: dry, warm Results Laboratory Results: 03/17/20 03:39 03/18/20 08:42 03/15/20 03/15/20 22:32 22:32 Creatine Kinase 78 CK-MB (CK-2) 3.58 Troponin I < 0.012 NT-Pro-B Natriuret Pep 394 Impressions: Head CT 03/15/20 22:36 IMPRESSION: No acute intracranial findings. Chest X-Ray 03/15/20 22:37 IMPRESSION: Questionable right basilar pneumonia. Assessment and Plan - Diagnosis (1) Hyperkalemia Is this a current diagnosis for this admission?: Yes Plan: Resolved (2) Hyponatremia Is this a current diagnosis for this admission?: Yes Plan: Essentially resolved (3) Acute encephalopathy Is this a current diagnosis for this admission?: Yes Plan: I believe this is resolved. I think she is probably at her baseline. (4) Dizziness Is this a current diagnosis for this admission?: Yes Plan: Resolved (5) Dementia Qualifiers: Dementia type: unspecified type Dementia behavioral disturbance: without behavioral disturbance Qualified Code(s): F03.90 - Unspecified dementia without behavioral disturbance Is this a current diagnosis for this admission?: Yes Plan: Believe her mental status is at baseline. Her would like to see if we can get her into rehab, and this may not be a bad idea for this patient. We will send out referrals. Her would prefer that she go to [facility]. He said she has been there before. - Plan Summary Summary: Patient will be admitted to the medical floor where she will receive routine supportive and symptomatic cares. A hyperkalemia therapeutic IV cocktail was administered in the ER. Antibiotic therapy will be continued utilizing Rocephin 1 g IV daily. Before meals and at bedtime Accu-Cheks will be obtained with sliding scale insulin for hyper glycemia and a hypoglycemic protocol in place. Patient will be treated with a cardiac and diabetic restricted diet. She will receive IV fluids utilizing normal saline at 167 mL an hour initially. Serial metabolic profiles will be obtained. CBCs and other laboratory and/or radiographic evaluations will be obtained as needed. Patient will receive Haldol 2 mg IV every 4 hours as needed for anxiety or restlessness. She will receive morphine sulfate 2 to 4 mg IV every 2 hours as needed for pain. The pat ient's usual home medication regiment will be continued, as appropriate, once her medication list has been verified and reconciled. - Time Time Spent with patient: 15-24 minutes Anticipated Discharge Disposition: Intermediate Facility Anticipated Discharge Timeframe: within 72 hours
[2020-03-20] MEDS: HEPARIN SOD (PORCINE) 5,000 UNIT/ML 1 ML VIAL SUBCUT SCH ×3 (05:14→21:55)
[2020-03-20] MEDS: DOCUSATE SODIUM 100 MG CAPSULE PO SCH ×2 (09:04→17:13)
[2020-03-20] MEDS: INSULIN REG, HUMAN 100 UNIT/ML 3 ML VIAL (PYX) SUBCUT SCH ×4 (09:05→21:52)
[2020-03-20] MEDS: FAMOTIDINE 20 MG TABLET PO SCH ×2 (09:14→21:55)
[2020-03-20 09:44] LABS: ANION GAP 11 (5-19); BLOOD UREA NITROGEN 23 mg/dL (7-20); CARBON DIOXIDE 25 mmol/L (22-30); CHLORIDE 96 mmol/L (98-107); GLUCOSE 260 mg/dL (75-110); POTASSIUM 5.1 mmol/L (3.6-5.0)
--- NOTE | 2020-03-20 18:25 | PDOC PROGRESS REPORT ---
Subjective Progress Note for:: 03/20/20 Subjective:: SANDY DANG is a 89 year old female who presented to the emergency room with a 2-day history of lightheadedness/dizziness. The patient was noted to have dementia and her historical input is of limited reliability. She admits developing lightheadedness 2 days ago with gradual worsening resulting in her presentation to the emergency room for evaluation and treatment. Her lightheadedness was accompanied by mild generalized weakness and was associated with mild dyspnea. She denies other associated or accompanying signs and symptoms. She admits prior similar episodes with past illnesses. In the emergency room she was noted to have pyuria and was also clinically dehydrated. Her serum sodium was 128 and potassium was 6.2. Her hyperkalemia was treated wi th an IV medication cocktail in the ER. Blood and urine cultures were obtained. IV antibiotic therapy was initiated. She was subsequently admitted to the hospital for further evaluation and treatment. 03/20/2020. No acute events overnight. In no apparent distress, denies any fever, chills, nausea, vomiting. Pending transfer to rehab. Reason For Visit: HYPERKALEMIA,UTI,HYPONATREMIA Physical Exam Vital Signs: Temp Pulse Resp BP Pulse Ox 98.0 F 86 28 H 174/70 H 99 03/20/20 16:00 03/20/20 16:00 03/20/20 16:00 03/20/20 16:00 03/20/20 16:00 Intake & Output 03/19/20 03/20/20 03/21/20 06:59 06:59 06:59 Intake Total 600 617 Balance 600 617 Weight 58.5 kg 58.3 kg General appearance: PRESENT: no acute distress, well-developed, well-nourished Head exam: PRESENT: atraumatic, normocephalic Respiratory exam: PRESENT: clear to auscultation stella. ABSENT: rales, rhonchi, wheezes Cardiovascular exam: PRESENT: RRR. ABSENT: diastolic murmur, rubs, systolic murmur GI/Abdominal exam: PRESENT: normal bowel sounds, soft. ABSENT: distended, guarding, mass, organolmegaly, rebound, tenderness Neurological exam: PRESENT: alert, awake, oriented to person, oriented to place, CN II-XII grossly intact. ABSENT: motor sensory deficit Results Laboratory Results: 03/17/20 03:39 10/07/20 08:51 03/20/20 08:51 Sodium 131.7 L Potassium 5.1 H Chloride 96 L Carbon Dioxide 25 Anion Gap 11 BUN 23 H Creatinine 0.65 Est GFR ( Amer) > 60 Glucose 260 H Calcium 9.0 03/15/20 03/15/20 22:32 22:32 Creatine Kinase 78 CK-MB (CK-2) 3.58 Troponin I < 0.012 NT-Pro-B Natriuret Pep 394 Impressions: Head CT 03/15/20 22:36 IMPRESSION: No acute intracranial findings. Chest X-Ray 03/15/20 22:37 IMPRESSION: Questionable right basilar pneumonia. Assessment and Plan - Diagnosis (1) Hyponatremia Is this a current diagnosis for this admission?: Yes Plan: Improving. Possibly due to SSRIs. Continue daily BMP, monitor for seizure. (2) Acute encephalopathy Is this a current diagnosis for this admission?: Yes Plan: Likely due to UTI. Seems to be at baseline. Alert and oriented. (3) CAD (coronary artery disease) Is this a current diagnosis for this admission?: Yes Plan: Denies any anginal symptoms. Continue statins, beta-blockers and ARB. (4) Dementia Qualifiers: Dementia type: unspecified type Dementia behavioral disturbance: without behavioral disturbance Qualified Code(s): F03.90 - Unspecified dementia without behavioral disturbance Is this a current diagnosis for this admission?: Yes Plan: Supportive measures. Pending transition to SNF. (5) HTN (hypertension) Qualifiers: Hypertension type: essential hypertension Qualified Code(s): I10 - Essential (primary) hypertension Is this a current diagnosis for this admission?: Yes Plan: Euvolemic. Normotensive. Continue current meds. Adjust meds as needed. (6) Hypothyroidism Qualifiers: Hypothyroidism type: unspecified Qualified Code(s): E03.9 - Hypothyroidism, unspecified Is this a current diagnosis for this admission?: Yes Plan: Continue current meds. Outpatient PCP follow-up. (7) Type 2 diabetes mellitus Is this a current diagnosis for this admission?: Yes Plan: Diabetic diet. Basal, sliding scale and correctional insulin. Hypoglycemic protocol. Accu-Chek. Resume home meds upon discharge. Outpatient follow-up (8) UTI (urinary tract infection) Qualifiers: Urinary tract infection type: site unspecified Hematuria presence: without hematuria Qualified Code(s): N39.0 - Urinary tract infection, site not specified Is this a current diagnosis for this admission?: Yes Plan: Likely due to gram-negative sherie. Empiric broad-spectrum IV antibiotics. Urine culture. (9) Hyperkalemia Is this a current diagnosis for this admission?: Yes Plan: Resolved - Plan Summary Summary: Patient will be admitted to the medical floor where she will receive routine supportive and symptomatic cares. A hyperkalemia therapeutic IV cocktail was administered in the ER. Antibiotic therapy will be continued utilizing Rocephin 1 g IV daily. Before meals and at bedtime Accu-Cheks will be obtained with sliding scale insulin for hyper glycemia and a hypoglycemic protocol in place. Patient will be treated with a cardiac and diabetic restricted diet. She will receive IV fluids utilizing normal saline at 167 mL an hour initially. Serial metabolic profiles will be obtained. CBCs and other laboratory and/or radiographic evaluations will be obtained as needed. Patient will receive H aldol 2 mg IV every 4 hours as needed for anxiety or restlessness. She will receive morphine sulfate 2 to 4 mg IV every 2 hours as needed for pain. The patient's usual home medication regiment will be continued, as appropriate, once her medication list has been verified and reconciled. - Time Time Spent with patient: 35 or more minutes Medications reviewed and adjusted accordingly: Yes Anticipated Discharge Disposition: Long-Term Facility Anticipated Discharge Timeframe: when bed available
[2020-03-21] MEDS: HYDRALAZINE HCL INJ/PF 20 MG/1 ML SDV IV PRN (00:56)
[2020-03-21] MEDS: HEPARIN SOD (PORCINE) 5,000 UNIT/ML 1 ML VIAL SUBCUT SCH ×3 (05:16→22:13)
[2020-03-21 05:25] LABS: HEMATOCRIT 32.8 % (36.0-47.0); HEMOGLOBIN 10.6 g/dL (12.0-15.5); MEAN CORPUSCULAR HEMOGLOBIN 23.7 pg (27.0-33.4); MEAN CORPUSCULAR HGB CONC 32.4 g/dL (32.0-36.0); MEAN CORPUSCULAR VOLUME 73 fl (80-97); PLATELET COUNT 529 10^3/uL (150-450); RED CELL DISTRIBUTION WIDTH 20.1 % (11.5-14.0); WHITE BLOOD COUNT 11.4 10^3/uL (4.0-10.5)
[2020-03-21 05:51] LABS: ANION GAP 11 (5-19); BLOOD UREA NITROGEN 23 mg/dL (7-20); CALCIUM 9.3 mg/dL (8.4-10.2); CARBON DIOXIDE 24 mmol/L (22-30); CHLORIDE 97 mmol/L (98-107); GLUCOSE 161 mg/dL (75-110); POTASSIUM 4.7 mmol/L (3.6-5.0)
[2020-03-21] MEDS: INSULIN REG, HUMAN 100 UNIT/ML 3 ML VIAL (PYX) SUBCUT SCH ×4 (07:40→22:13)
[2020-03-21] MEDS: DOCUSATE SODIUM 100 MG CAPSULE PO SCH ×2 (11:25→17:30)
[2020-03-21] MEDS: FAMOTIDINE 20 MG TABLET PO SCH ×2 (11:25→22:13)
--- NOTE | 2020-03-21 12:56 | PDOC PROGRESS REPORT ---
Subjective Progress Note for:: 03/21/20 Subjective:: SANDY DANG is a 89 year old female who presented to the emergency room with a 2-day history of lightheadedness/dizziness. The patient was noted to have dementia and her historical input is of limited reliability. She admits developing lightheadedness 2 days ago with gradual worsening resulting in her presentation to the emergency room for evaluation and treatment. Her lightheadedness was accompanied by mild generalized weakness and was associated with mild dyspnea. She denies other associated or accompanying signs and symptoms. She admits prior similar episodes with past illnesses. In the emergency room she was noted to have pyuria and was also clinically dehydrated. Her serum sodium was 128 and potassium was 6.2. Her hyperkalemia was treated wi th an IV medication cocktail in the ER. Blood and urine cultures were obtained. IV antibiotic therapy was initiated. She was subsequently admitted to the hospital for further evaluation and treatment. 03/20/2020. No acute events overnight. In no apparent distress, denies any fever, chills, nausea, vomiting. Pending transfer to rehab. 03/21/2020. No acute events overnight. Denies any fever, chills, nausea,, constipation or enuresis. Comfortable resting in bed not producing, cooperative with physical examination. Pending transfer to rehab. Reason For Visit: HYPERKALEMIA,UTI,HYPONATREMIA Physical Exam Vital Signs: Temp Pulse Resp BP Pulse Ox 98.2 F 91 18 169/59 H 99 03/21/20 10:00 03/21/20 07:00 03/21/20 00:22 03/21/20 00:22 03/21/20 00:22 Intake & Output 03/20/20 03/21/20 03/22/20 06:59 06:59 06:59 Intake Total 600 617 Balance 600 617 Weight 58.3 kg 58.1 kg General appearance: PRESENT: no acute distress, well-developed, well-nourished Head exam: PRESENT: atraumatic, normocephalic Respiratory exam: PRESENT: clear to auscultation stella. ABSENT: rales, rhonchi, wheezes Cardiovascular exam: PRESENT: RRR. ABSENT: diastolic murmur, rubs, systolic murmur Extremities exam: PRESENT: full ROM. ABSENT: calf tenderness, clubbing, pedal edema Neurological exam: PRESENT: alert, awake, oriented to person, oriented to place, CN II-XII grossly intact. ABSENT: motor sensory deficit Results Laboratory Results: 03/21/20 04:54 03/21/20 04:54 03/21/20 03/21/20 04:54 04:54 WBC 11.4 H RBC 4.50 Hgb 10.6 L Hct 32.8 L MCV 73 L MCH 23.7 L MCHC 32.4 RDW 20.1 H Plt Count 529 H Sodium 132.0 L Potassium 4.7 Chloride 97 L Carbon Dioxide 24 Anion Gap 11 BUN 23 H Creatinine 0.68 Est GFR ( Amer) > 60 Glucose 161 H Calcium 9.3 Magnesium 2.0 03/15/20 03/15/20 22:32 22:32 Creatine Kinase 78 CK-MB (CK-2) 3.58 Troponin I < 0.012 NT-Pro-B Natriuret Pep 394 Impressions: Head CT 03/15/20 22:36 IMPRESSION: No acute intracranial findings. Chest X-Ray 03/15/20 22:37 IMPRESSION: Questionable right basilar pneumonia. Assessment and Plan - Diagnosis (1) Hyponatremia Is this a current diagnosis for this admission?: Yes Plan: Improving. Possibly due to SSRIs. Continue daily BMP, monitor for seizure. (2) Acute encephalopathy Is this a current diagnosis for this admission?: Yes Plan: Likely due to UTI. Seems to be at baseline. Alert and oriented. (3) CAD (coronary artery disease) Is this a current diagnosis for this admission?: Yes Plan: Denies any anginal symptoms. Continue statins, beta-blockers and ARB. (4) Dementia Qualifiers: Dementia type: unspecified type Dementia behavioral disturbance: without behavioral disturbance Qualified Code(s): F03.90 - Unspecified dementia without behavioral disturbance Is this a current diagnosis for this admission?: Yes Plan: Supportive measures. Pending transition to SNF. (5) HTN (hypertension) Qualifiers: Hypertension type: essential hypertension Qualified Code(s): I10 - Essential (primary) hypertension Is this a current diagnosis for this admission?: Yes Plan: Euvolemic. Normotensive. Continue current meds. Adjust meds as needed. (6) Hypothyroidism Qualifiers: Hypothyroidism type: unspecified Qualified Code(s): E03.9 - Hypothyroidism, unspecified Is this a current diagnosis for this admission?: Yes Plan: Continue current meds. Outpatient PCP follow-up. (7) Type 2 diabetes mellitus Is this a current diagnosis for this admission?: Yes Plan: Diabetic diet. Basal, sliding scale and correctional insulin. Hypoglycemic protocol. Accu-Chek. Resume home meds upon discharge. Outpatient follow-up (8) UTI (urinary tract infection) Qualifiers: Urinary tract infection type: site unspecified Hematuria presence: without hematuria Qualified Code(s): N39.0 - Urinary tract infection, site not specified Is this a current diagnosis for this admission?: Yes Plan: Likely due to gram-negative sherie. Empiric broad-spectrum IV antibiotics. Urine culture. (9) Hyperkalemia Is this a current diagnosis for this admission?: Yes Plan: Resolved - Plan Summary Summary: Patient will be admitted to the medical floor where she will receive routine supportive and symptomatic cares. A hyperkalemia therapeutic IV cocktail was administered in the ER. Antibiotic therapy will be continued utilizing Rocephin 1 g IV daily. Before meals and at bedtime Accu-Cheks will be obtained with sliding scale insulin for hyper glycemia and a hypoglycemic protocol in place. Patient will be treated with a cardiac and diabetic restricted diet. She will receive IV fluids utilizing normal saline at 167 mL an hour initially. Serial m etabolic profiles will be obtained. CBCs and other laboratory and/or radiographic evaluations will be obtained as needed. Patient will receive Haldol 2 mg IV every 4 hours as needed for anxiety or restlessness. She will receive morphine sulfate 2 to 4 mg IV every 2 hours as needed for pain. The patient's usual home medication regiment will be continued, as appropriate, once her medication list has been verified and reconciled. - Time Time Spent with patient: 25-34 minutes Medications reviewed and adjusted accordingly: Yes Anticipated Discharge Disposition[facility] Jail Facility Anticipated Discharge Timeframe: when bed available
[2020-03-21] MEDS ORDERED: CEFTRIAXONE 1 GM/D5W RTU 1 GM/50 ML RTUPB IV SCH (14:00)
[2020-03-21] MEDS: CEFTRIAXONE 1 GM/D5W RTU 1 GM/50 ML RTUPB IV SCH (22:45)
[2020-03-22] MEDS: HEPARIN SOD (PORCINE) 5,000 UNIT/ML 1 ML VIAL SUBCUT SCH ×3 (05:21→21:38)
[2020-03-22 05:45] LABS: ABSOLUTE BASOPHILS # (AUTO) 0.1 10^3/uL (0.0-0.2); ABSOLUTE EOSINOPHILS # (AUTO) 0.1 10^3/uL (0.0-0.6); ABSOLUTE LYMPHOCYTES (AUTO) 1.5 10^3/uL (0.5-4.7); ABSOLUTE MONOCYTES (AUTO) 1.6 10^3/uL (0.1-1.4); ABSOLUTE NEUT (AUTO) 6.8 10^3/uL (1.7-8.2); BASOPHILS % (AUTO) 1.1 % (0-2); EOSINOPHILS % (AUTO) 1.2 % (0-6); HEMATOCRIT 29.4 % (36.0-47.0); HEMOGLOBIN 9.9 g/dL (12.0-15.5); LYMPHOCYTES % (AUTO) 14.8 % (13-45); MEAN CORPUSCULAR HEMOGLOBIN 24.6 pg (27.0-33.4); MEAN CORPUSCULAR HGB CONC 33.6 g/dL (32.0-36.0); MEAN CORPUSCULAR VOLUME 73 fl (80-97); MONOCYTES % (AUTO) 16.2 % (3-13); PLATELET COUNT 558 10^3/uL (150-450); RED BLOOD COUNT 4.01 10^6/uL (3.72-5.28); RED CELL DISTRIBUTION WIDTH 19.8 % (11.5-14.0); SEGMENTED NEUTROPHILS % (AUTO) 66.7 % (42-78); TOTAL CELLS COUNTED % (AUTO) 100 %; WHITE BLOOD COUNT 10.1 10^3/uL (4.0-10.5)
[2020-03-22 06:13] LABS: ANION GAP 10 (5-19); BLOOD UREA NITROGEN 30 mg/dL (7-20); CALCIUM 9.2 mg/dL (8.4-10.2); CARBON DIOXIDE 25 mmol/L (22-30); CHLORIDE 100 mmol/L (98-107); GLUCOSE 123 mg/dL (75-110); POTASSIUM 5.5 mmol/L (3.6-5.0)
[2020-03-22] MEDS: INSULIN REG, HUMAN 100 UNIT/ML 3 ML VIAL (PYX) SUBCUT SCH ×4 (07:22→21:38)
[2020-03-22] MEDS ORDERED: SODIUM POLYSTYRENE SULFONATE 15 GM/60 ML PO ONE ×2 (09:30→17:15)
[2020-03-22] MEDS: FAMOTIDINE 20 MG TABLET PO SCH ×2 (09:34→21:38)
[2020-03-22] MEDS: DOCUSATE SODIUM 100 MG CAPSULE PO SCH ×2 (09:49→17:15)
[2020-03-22] MEDS ORDERED: CALCIUM GLUCONATE 1000 MG/10 ML INJ IV ONE (17:15)
[2020-03-22] MEDS: CARVEDILOL 12.5 MG TABLET PO SCH (17:25)
[2020-03-22] MEDS ORDERED: CALCIUM GLUCONATE 1 GM/NS 50 ML RTU IV ONE (17:30)
[2020-03-22] MEDS: ASPIRIN 81 MG TABLET, ENT COATED PO SCH (21:38)
[2020-03-22] MEDS: ATORVASTATIN CALCIUM 20 MG TABLET PO SCH (21:38)
[2020-03-22] MEDS: ROPINIROLE HCL 2 MG TABLET PO SCH (21:38)
[2020-03-22] MEDS: ESCITALOPRAM OXALATE 10 MG TABLET PO SCH (21:38)
[2020-03-22] MEDS: LOSARTAN POTASSIUM 50 MG TABLET PO SCH (21:38)
[2020-03-22] MEDS: LEVOTHYROXINE SODIUM 0.15 MG TABLET PO SCH (21:38)
[2020-03-22] MEDS: CEFTRIAXONE 1 GM/D5W RTU 1 GM/50 ML RTUPB IV SCH (21:39)
[2020-03-23] MEDS: CARVEDILOL 12.5 MG TABLET PO SCH ×2 (05:15→17:08)
[2020-03-23] MEDS: HEPARIN SOD (PORCINE) 5,000 UNIT/ML 1 ML VIAL SUBCUT SCH ×3 (05:15→21:40)
[2020-03-23] MEDS: INSULIN REG, HUMAN 100 UNIT/ML 3 ML VIAL (PYX) SUBCUT SCH ×4 (07:53→21:40)
[2020-03-23] MEDS: ROPINIROLE HCL 2 MG TABLET PO SCH ×2 (10:12→21:39)
[2020-03-23] MEDS: FAMOTIDINE 20 MG TABLET PO SCH ×2 (10:12→21:39)
[2020-03-23] MEDS: DOCUSATE SODIUM 100 MG CAPSULE PO SCH ×2 (10:12→17:08)
[2020-03-23] MEDS: ANASTROZOLE 1 MG TABLET PO SCH (10:12)
[2020-03-23 11:30] LABS: ANION GAP 8 (5-19); BLOOD UREA NITROGEN 24 mg/dL (7-20); CALCIUM 9.1 mg/dL (8.4-10.2); CARBON DIOXIDE 27 mmol/L (22-30); CHLORIDE 100 mmol/L (98-107); GLUCOSE 183 mg/dL (75-110); POTASSIUM 4.2 mmol/L (3.6-5.0)
--- NOTE | 2020-03-23 14:26 | PDOC PROGRESS REPORT ---
Subjective Progress Note for:: 03/22/20 Subjective:: SANDY DANG is a 89 year old female who presented to the emergency room with a 2-day history of lightheadedness/dizziness. The patient was noted to have dementia and her historical input is of limited reliability. She admits developing lightheadedness 2 days ago with gradual worsening resulting in her presentation to the emergency room for evaluation and treatment. Her lightheadedness was accompanied by mild generalized weakness and was associated with mild dyspnea. She denies other associated or accompanying signs and symptoms. She admits prior similar episodes with past illnesses. In the emergency room she was noted to have pyuria and was also clinically dehydrated. Her serum sodium was 128 and potassium was 6.2. Her hyperkalemia was treated wi th an IV medication cocktail in the ER. Blood and urine cultures were obtained. IV antibiotic therapy was initiated. She was subsequently admitted to the hospital for further evaluation and treatment. 03/20/2020. No acute events overnight. In no apparent distress, denies any fever, chills, nausea, vomiting. Pending transfer to rehab. 03/22/2020. No acute events overnight. He denies any fever, chills, nausea, vomiting. Comfortably sleeping in bed easily arousable, alert and oriented. Pe nding transfer to rehab. Reason For Visit: HYPERKALEMIA,UTI,HYPONATREMIA Physical Exam Vital Signs: Temp Pulse Resp BP Pulse Ox 97.6 F 74 20 135/45 H 100 03/23/20 11:13 03/23/20 14:00 03/23/20 11:13 03/23/20 11:13 03/23/20 11:13 Intake & Output 03/22/20 03/23/20 03/24/20 06:59 06:59 06:59 Intake Total 610 528 Balance 610 528 Weight 57.9 kg 58.1 kg General appearance: PRESENT: no acute distress, well-developed, well-nourished Head exam: PRESENT: atraumatic, normocephalic Neck exam: ABSENT: carotid bruit, JVD, lymphadenopathy, thyromegaly Cardiovascular exam: PRESENT: RRR. ABSENT: diastolic murmur, rubs, systolic murmur GI/Abdominal exam: PRESENT: normal bowel sounds, soft. ABSENT: distended, guarding, mass, organolmegaly, rebound, tenderness Extremities exam: PRESENT: full ROM. ABSENT: calf tenderness, clubbing, pedal edema Neurological exam: PRESENT: alert, awake, oriented to person, oriented to place, CN II-XII grossly intact Results Laboratory Results: 03/22/20 04:34 03/23/20 10:47 03/22/20 03/23/20 15:53 10:47 Sodium 134.7 L Potassium 5.1 H 4.2 Chloride 100 Carbon Dioxide 27 Anion Gap 8 BUN 24 H Creatinine 0.60 Est GFR ( Amer) > 60 Glucose 183 H Calcium 9.1 Magnesium 2.0 03/21/20 18:55 Clean Catch Midstream Urine Culture - Final Klebsiella(Enterobac)Aerogenes 03/15/20 03/15/20 22:32 22:32 Creatine Kinase 78 CK-MB (CK-2) 3.58 Troponin I < 0.012 NT-Pro-B Natriuret Pep 394 Impressions: Head CT 03/15/20 22:36 IMPRESSION: No acute intracranial findings. Chest X-Ray 03/15/20 22:37 IMPRESSION: Questionable right basilar pneumonia. Assessment and Plan - Diagnosis (1) Hyponatremia Is this a current diagnosis for this admission?: Yes Plan: Improving. Possibly due to SSRIs. Continue daily BMP, monitor for seizure. (2) Acute encephalopathy Is this a current diagnosis for this admission?: Yes Plan: Likely due to UTI. Seems to be at baseline. Alert and oriented. (3) CAD (coronary artery disease) Is this a current diagnosis for this admission?: Yes Plan: Denies any anginal symptoms. Continue statins, beta-blockers and ARB. (4) Dementia Qualifiers: Dementia type: unspecified type Dementia behavioral disturbance: without behavioral disturbance Qualified Code(s): F03.90 - Unspecified dementia without behavioral disturbance Is this a current diagnosis for this admission?: Yes Plan: Supportive measures. Pending transition to SNF. (5) HTN (hypertension) Qualifiers: Hypertension type: essential hypertension Qualified Code(s): I10 - Essential (primary) hypertension Is this a current diagnosis for this admission?: Yes Plan: Euvolemic. Normotensive. Continue current meds. Adjust meds as needed. (6) Hypothyroidism Qualifiers: Hypothyroidism type: unspecified Qualified Code(s): E03.9 - Hypothyroidism, unspecified Is this a current diagnosis for this admission?: Yes Plan: Continue current meds. Outpatient PCP follow-up. (7) Type 2 diabetes mellitus Is this a current diagnosis for this admission?: Yes Plan: Diabetic diet. Basal, sliding scale and correctional insulin. Hypoglycemic protocol. Accu-Chek. Resume home meds upon discharge. Outpatient follow-up (8) UTI (urinary tract infection) Qualifiers: Urinary tract infection type: site unspecified Hematuria presence: without hematuria Qualified Code(s): N39.0 - Urinary tract infection, site not specified Is this a current diagnosis for this admission?: Yes Plan: Likely due to gram-negative sherie. Empiric broad-spectrum IV antibiotics. Urine culture. (9) Hyperkalemia Is this a current diagnosis for this admission?: Yes Plan: Resolved - Plan Summary Summary: Patient will be admitted to the medical floor where she will receive routine supportive and symptomatic cares. A hyperkalemia therapeutic IV cocktail was administered in the ER. Antibiotic therapy will be continued utilizing Rocephin 1 g IV daily. Before meals and at bedtime Accu-Cheks will be obtained with sliding scale insulin for hyper glycemia and a hypoglycemic protocol in place. Patient will be treated with a cardiac and diabetic restricted diet. She will receive IV fluids utilizing normal saline at 167 mL an hour initially. Serial metabolic profiles will be obtained. CBCs and other laboratory and/or radiographic evaluations will be obtained as needed. Patient will receive Haldol 2 mg IV every 4 hours as needed for anxiety or restlessness. She will receive morphine sulfate 2 to 4 mg IV every 2 hours as needed for pain. The patient's usual home medication regiment will be continued, as appropriate, once her medication list has been verified and reconciled. - Time Time Spent with patient: 15-24 minutes Medications reviewed and adjusted accordingly: Yes Anticipated Discharge Disposition: Detention Facility Anticipated Discharge Timeframe: when bed available
[2020-03-23] MEDS: LEVOTHYROXINE SODIUM 0.15 MG TABLET PO SCH (21:39)
[2020-03-23] MEDS: ESCITALOPRAM OXALATE 10 MG TABLET PO SCH (21:39)
[2020-03-23] MEDS: LOSARTAN POTASSIUM 50 MG TABLET PO SCH (21:39)
[2020-03-23] MEDS: ATORVASTATIN CALCIUM 20 MG TABLET PO SCH (21:39)
[2020-03-23] MEDS: CEFTRIAXONE 1 GM/D5W RTU 1 GM/50 ML RTUPB IV SCH (21:39)
[2020-03-23] MEDS: ASPIRIN 81 MG TABLET, ENT COATED PO SCH (21:39)
[2020-03-24] MEDS: HEPARIN SOD (PORCINE) 5,000 UNIT/ML 1 ML VIAL SUBCUT SCH ×3 (05:28→22:04)
[2020-03-24] MEDS: CARVEDILOL 12.5 MG TABLET PO SCH ×2 (05:28→18:04)
[2020-03-24 06:12] LABS: ANION GAP 7 (5-19); BLOOD UREA NITROGEN 27 mg/dL (7-20); CALCIUM 8.9 mg/dL (8.4-10.2); CARBON DIOXIDE 29 mmol/L (22-30); CHLORIDE 99 mmol/L (98-107); GLUCOSE 164 mg/dL (75-110); POTASSIUM 4.2 mmol/L (3.6-5.0)
[2020-03-24] MEDS: INSULIN REG, HUMAN 100 UNIT/ML 3 ML VIAL (PYX) SUBCUT SCH ×4 (08:25→22:10)
[2020-03-24] MEDS: ANASTROZOLE 1 MG TABLET PO SCH (08:25)
[2020-03-24] MEDS: FAMOTIDINE 20 MG TABLET PO SCH ×2 (09:43→22:03)
[2020-03-24] MEDS: ROPINIROLE HCL 2 MG TABLET PO SCH ×2 (09:43→22:03)
[2020-03-24] MEDS: DOCUSATE SODIUM 100 MG CAPSULE PO SCH ×2 (09:43→18:02)
--- NOTE | 2020-03-24 13:00 | PDOC PROGRESS REPORT ---
Subjective Progress Note for:: 03/24/20 Subjective:: SANDY DANG is a 89 year old female who presented to the emergency room with a 2-day history of lightheadedness/dizziness. The patient was noted to have dementia and her historical input is of limited reliability. She admits developing lightheadedness 2 days ago with gradual worsening resulting in her presentation to the emergency room for evaluation and treatment. Her lightheadedness was accompanied by mild generalized weakness and was associated with mild dyspnea. She denies other associated or accompanying signs and symptoms. She admits prior similar episodes with past illnesses. In the emergency room she was noted to have pyuria and was also clinically dehydrated. Her serum sodium was 128 and potassium was 6.2. Her hyperkalemia was treated wi th an IV medication cocktail in the ER. Blood and urine cultures were obtained. IV antibiotic therapy was initiated. She was subsequently admitted to the hospital for further evaluation and treatment. 03/20/2020. No acute events overnight. In no apparent distress, denies any fever, chills, nausea, vomiting. Pending transfer to rehab. 03/22/2020. No acute events overnight. He denies any fever, chills, nausea, vomiting. Comfortably sleeping in bed easily arousable, alert and oriented. Pe nding transfer to rehab. 03/24/2020. No acute events overnight. Patient comfortably resting in the bed enjoying her breakfast, denies any fever, chills, nausea, vomiting, diarrhea, constipation or any urinary symptoms. Patient is pending transfer to rehab. Reason For Visit: HYPERKALEMIA,UTI,HYPONATREMIA Physical Exam Vital Signs: Temp Pulse Resp BP Pulse Ox 97.8 F 54 L 22 H 115/49 L 97 03/24/20 11:25 03/24/20 11:25 03/24/20 11:25 03/24/20 11:25 03/24/20 11:25 Intake & Output 03/23/20 03/24/20 03/25/20 06:59 06:59 06:59 Intake Total 528 1170 Balance 528 1170 Weight 58.1 kg 61.6 kg General appearance: PRESENT: no acute distress, well-developed, well-nourished Head exam: PRESENT: atraumatic, normocephalic Respiratory exam: PRESENT: clear to auscultation stella. ABSENT: rales, rhonchi, wheezes Cardiovascular exam: PRESENT: RRR. ABSENT: diastolic murmur, rubs, systolic murmur GI/Abdominal exam: PRESENT: normal bowel sounds, soft. ABSENT: distended, guarding, mass, organolmegaly, rebound, tenderness Neurological exam: PRESENT: alert, awake, oriented to person, oriented to place, CN II-XII grossly intact. ABSENT: motor sensory deficit Results Laboratory Results: 03/22/20 04:34 03/24/20 05:06 03/24/20 05:06 Sodium 134.5 L Potassium 4.2 Chloride 99 Carbon Dioxide 29 Anion Gap 7 BUN 27 H Creatinine 0.63 Est GFR ( Amer) > 60 Glucose 164 H Calcium 8.9 03/15/20 03/15/20 22:32 22:32 Creatine Kinase 78 CK-MB (CK-2) 3.58 Troponin I < 0.012 NT-Pro-B Natriuret Pep 394 Impressions: Head CT 03/15/20 22:36 IMPRESSION: No acute intracranial findings. Chest X-Ray 03/15/20 22:37 IMPRESSION: Questionable right basilar pneumonia. Assessment and Plan - Diagnosis (1) Hyponatremia Is this a current diagnosis for this admission?: Yes Plan: Improving. Possibly due to SSRIs. Continue daily BMP, monitor for seizure. (2) Acute encephalopathy Is this a current diagnosis for this admission?: Yes Plan: Likely due to UTI. Seems to be at baseline. Alert and oriented. (3) CAD (coronary artery disease) Is this a current diagnosis for this admission?: Yes Plan: Denies any anginal symptoms. Continue statins, beta-blockers and ARB. (4) Dementia Qualifiers: Dementia type: unspecified type Dementia behavioral disturbance: without behavioral disturbance Qualified Code(s): F03.90 - Unspecified dementia without behavioral disturbance Is this a current diagnosis for this admission?: Yes Plan: Supportive measures. Pending transition to SNF. (5) HTN (hypertension) Qualifiers: Hypertension type: essential hypertension Qualified Code(s): I10 - Essential (primary) hypertension Is this a current diagnosis for this admission?: Yes Plan: Euvolemic. Normotensive. Continue current meds. Adjust meds as needed. (6) Hypothyroidism Qualifiers: Hypothyroidism type: unspecified Qualified Code(s): E03.9 - Hypothyroidism, unspecified Is this a current diagnosis for this admission?: Yes Plan: Continue current meds. Outpatient PCP follow-up. (7) Type 2 diabetes mellitus Is this a current diagnosis for this admission?: Yes Plan: Diabetic diet. Basal, sliding scale and correctional insulin. Hypoglycemic protocol. Accu-Chek. Resume home meds upon discharge. Outpatient follow-up (8) UTI (urinary tract infection) Qualifiers: Urinary tract infection type: site unspecified Hematuria presence: without hematuria Qualified Code(s): N39.0 - Urinary tract infection, site not specified Is this a current diagnosis for this admission?: Yes Plan: Likely due to gram-negative sherie. Empiric broad-spectrum IV antibiotics. Urine culture. (9) Hyperkalemia Is this a current diagnosis for this admission?: Yes Plan: Resolved - Plan Summary Summary: Patient will be admitted to the medical floor where she will receive routine sup portive and symptomatic cares. A hyperkalemia therapeutic IV cocktail was administered in the ER. Antibiotic therapy will be continued utilizing Rocephin 1 g IV daily. Before meals and at bedtime Accu-Cheks will be obtained with sliding scale insulin for hyper glycemia and a hypoglycemic protocol in place. Patient will be treated with a cardiac and diabetic restricted diet. She will receive IV fluids utilizing normal saline at 167 mL an hour initially. Serial metabolic profiles will be obtained. CBCs and other laboratory and/or radiographic evaluations will be obtained as needed. Patient will receive Haldol 2 mg IV every 4 hours as needed for anxiety or restlessness. She will receive morphine sulfate 2 to 4 mg IV every 2 hours as needed for pain. The patient's usual home medication regiment will be continued, as appropriate, once her medication list has been verified and reconciled. - Time Time Spent with patient: 25-34 minutes Medications reviewed and adjusted accordingly: Yes Anticipated Discharge Disposition: Alf Facility Anticipated Discharge Timeframe: when bed available
[2020-03-24] MEDS ORDERED: LEVALBUTEROL HCL NEB 0.63 MG/3 ML AMPUL NEB SCH (14:00)
[2020-03-24] MEDS ORDERED: LEVALBUTEROL HCL NEB 0.63 MG/3 ML AMPUL NEB PRN (15:21)
[2020-03-24] MEDS: LOSARTAN POTASSIUM 50 MG TABLET PO SCH (22:03)
[2020-03-24] MEDS: LEVOTHYROXINE SODIUM 0.15 MG TABLET PO SCH (22:03)
[2020-03-24] MEDS: ESCITALOPRAM OXALATE 10 MG TABLET PO SCH (22:03)
[2020-03-24] MEDS: ATORVASTATIN CALCIUM 20 MG TABLET PO SCH (22:04)
[2020-03-24] MEDS: CEFTRIAXONE 1 GM/D5W RTU 1 GM/50 ML RTUPB IV SCH (22:04)
[2020-03-24] MEDS: ASPIRIN 81 MG TABLET, ENT COATED PO SCH (22:10)
[2020-03-25] MEDS: CARVEDILOL 12.5 MG TABLET PO SCH (05:17)
[2020-03-25] MEDS: HEPARIN SOD (PORCINE) 5,000 UNIT/ML 1 ML VIAL SUBCUT SCH (05:17)
[2020-03-25] MEDS: ANASTROZOLE 1 MG TABLET PO SCH (09:16)
[2020-03-25] MEDS: ROPINIROLE HCL 2 MG TABLET PO SCH (09:16)
[2020-03-25] MEDS: DOCUSATE SODIUM 100 MG CAPSULE PO SCH (09:16)
[2020-03-25] MEDS: INSULIN REG, HUMAN 100 UNIT/ML 3 ML VIAL (PYX) SUBCUT SCH ×2 (09:16→12:06)
[2020-03-25] MEDS: FAMOTIDINE 20 MG TABLET PO SCH (09:16)
--- NOTE | 2020-03-25 10:33 | PDOC PROGRESS REPORT ---
Subjective Progress Note for:: 03/23/20 Subjective:: SANDY DANG is a 89 year old female who presented to the emergency room with a 2-day history of lightheadedness/dizziness. The patient was noted to have dementia and her historical input is of limited reliability. She admits developing lightheadedness 2 days ago with gradual worsening resulting in her presentation to the emergency room for evaluation and treatment. Her lightheadedness was accompanied by mild generalized weakness and was associated with mild dyspnea. She denies other associated or accompanying signs and symptoms. She admits prior similar episodes with past illnesses. In the emergency room she was noted to have pyuria and was also clinically dehydrated. Her serum sodium was 128 and potassium was 6.2. Her hyperkalemia was treated wi th an IV medication cocktail in the ER. Blood and urine cultures were obtained. IV antibiotic therapy was initiated. She was subsequently admitted to the hospital for further evaluation and treatment. 03/20/2020. No acute events overnight. In no apparent distress, denies any fever, chills, nausea, vomiting. Pending transfer to rehab. 03/22/2020. No acute events overnight. He denies any fever, chills, nausea, vomiting. Comfortably sleeping in bed easily arousable, alert and oriented. Pe nding transfer to rehab. 03/23/2020. No acute events overnight. Patient comfortably resting in the bed enjoying her breakfast, denies any fever, chills, nausea, vomiting, diarrhea, constipation or any urinary symptoms. Reason For Visit: HYPERKALEMIA,UTI,HYPONATREMIA Physical Exam Vital Signs: Temp Pulse Resp BP Pulse Ox 97.6 F 58 L 16 149/52 H 96 03/25/20 09:57 03/25/20 07:45 03/25/20 07:45 03/25/20 07:45 03/25/20 07:45 Intake & Output 03/24/20 03/25/20 03/26/20 06:59 06:59 06:59 Intake Total 1170 170 236 Balance 1170 170 236 Weight 61.6 kg 63.4 kg General appearance: PRESENT: no acute distress, well-developed, well-nourished Head exam: PRESENT: atraumatic, normocephalic Respiratory exam: PRESENT: clear to auscultation stella. ABSENT: rales, rhonchi, wheezes Cardiovascular exam: PRESENT: RRR. ABSENT: diastolic murmur, rubs, systolic murmur GI/Abdominal exam: PRESENT: normal bowel sounds, soft. ABSENT: distended, guarding, mass, organolmegaly, rebound, tenderness Neurological exam: PRESENT: alert, awake, oriented to person, oriented to place, oriented to time, oriented to situation, CN II-XII grossly intact. ABSENT: motor sensory deficit Results Laboratory Results: 03/22/20 04:34 03/24/20 05:06 03/15/20 03/15/20 22:32 22:32 Creatine Kinase 78 CK-MB (CK-2) 3.58 Troponin I < 0.012 NT-Pro-B Natriuret Pep 394 Impressions: Head CT 03/15/20 22:36 IMPRESSION: No acute intracranial findings. Chest X-Ray 03/15/20 22:37 IMPRESSION: Questionable right basilar pneumonia. Assessment and Plan - Diagnosis (1) Hyponatremia Is this a current diagnosis for this admission?: Yes Plan: Improving. Possibly due to SSRIs. Continue daily BMP, monitor for seizure. (2) Acute encephalopathy Is this a current diagnosis for this admission?: Yes Plan: Likely due to UTI. Seems to be at baseline. Alert and oriented. (3) CAD (coronary artery disease) Is this a current diagnosis for this admission?: Yes Plan: Denies any anginal symptoms. Continue statins, beta-blockers and ARB. (4) Dementia Qualifiers: Dementia type: unspecified type Dementia behavioral disturbance: without behavioral disturbance Qualified Code(s): F03.90 - Unspecified dementia without behavioral disturbance Is this a current diagnosis for this admission?: Yes Plan: Supportive measures. Pending transition to SNF. (5) HTN (hypertension) Qualifiers: Hypertension type: essential hypertension Qualified Code(s): I10 - Essential (primary) hypertension Is this a current diagnosis for this admission?: Yes Plan: Euvolemic. Normotensive. Continue current meds. Adjust meds as needed. (6) Hypothyroidism Qualifiers: Hypothyroidism type: unspecified Qualified Code(s): E03.9 - Hypothyroidism, unspecified Is this a current diagnosis for this admission?: Yes Plan: Continue current meds. Outpatient PCP follow-up. (7) Type 2 diabetes mellitus Is this a current diagnosis for this admission?: Yes Plan: Diabetic diet. Basal, sliding scale and correctional insulin. Hypoglycemic protocol. Accu-Chek. Resume home meds upon discharge. Outpatient follow-up (8) UTI (urinary tract infection) Qualifiers: Urinary tract infection type: site unspecified Hematuria presence: without hematuria Qualified Code(s): N39.0 - Urinary tract infection, site not specified Is this a current diagnosis for this admission?: Yes Plan: Likely due to gram-negative sherie. Empiric broad-spectrum IV antibiotics. Urine culture. (9) Hyperkalemia Is this a current diagnosis for this admission?: Yes Plan: Resolved - Plan Summary Summary: Patient will be admitted to the medical floor where she will receive routine supportive and symptomatic cares. A hyperkalemia therapeutic IV cocktail was administered in the ER. Antibiotic therapy will be continued utilizing Rocephin 1 g IV daily. Before meals and at bedtime Accu-Cheks will be obtained with sliding scale insulin for hyper glycemia and a hypoglycemic protocol in place. Patient will be treated with a cardiac and diabetic restricted diet. She will receive IV fluids utilizing normal saline at 167 mL an hour initially. Serial metabolic profiles will be obtained. CBCs and other laboratory and/or radiographic evaluations will be obtained as needed. Patient will receive Haldol 2 mg IV every 4 hours as needed for anxiety or restlessness. She will receive morphine sulfate 2 to 4 mg IV every 2 hours as needed for pain. The patient's usual home medication regiment will be continued, as appropriate, once her medication list has been verified and reconciled. - Time Time Spent with patient: 25-34 minutes Medications reviewed and adjusted accordingly: Yes Anticipated Discharge Disposition: [facility] Facility Anticipated Discharge Timeframe: when bed available
--- NOTE | 2020-03-25 10:45 | PDOC TRANSFER SUMMARY ---
Impression - Admit/DC Date/PCP Admission Date/Primary Care Provider: 03/16/20 01:11 CORAZON CARRION PA-C Discharge Date: 03/25/20 - Discharge Diagnosis (1) Hyponatremia Is this a current diagnosis for this admission?: Yes (2) Acute encephalopathy Is this a current diagnosis for this admission?: Yes (3) CAD (coronary artery disease) Is this a current diagnosis for this admission?: Yes (4) Dementia Is this a current diagnosis for this admission?: Yes (5) HTN (hypertension) Is this a current diagnosis for this admission?: Yes (6) Hypothyroidism Is this a current diagnosis for this admission?: Yes (7) Type 2 diabetes mellitus Is this a current diagnosis for this admission?: Yes (8) UTI (urinary tract infection) Is this a current diagnosis for this admission?: Yes (9) Hyperkalemia Is this a current diagnosis for this admission?: Yes - Assessment Summary: Patient will be admitted to the medical floor where she will receive routine supportive and symptomatic cares. A hyperkalemia therapeutic IV cocktail was administered in the ER. Antibiotic therapy will be continued utilizing Rocephin 1 g IV daily. Before meals and at bedtime Accu-Cheks will be obtained with sliding scale insulin for hyper glycemia and a hypoglycemic protocol in place. Patient will be treated with a cardiac and diabetic restricted diet. She will receive IV fluids utilizing normal saline at 167 mL an hour initially. Serial metabolic profiles will be obtained. CBCs and other laboratory and/or radiographic evaluations will be obtained as needed. Patient will receive Haldol 2 mg IV every 4 hours as needed for anxiety or restlessness. She will receive morphine sulfate 2 to 4 mg IV every 2 hours as needed for pain. The patient's usual home medication regiment will be continued, as appropriate, once her medication list has been verified and reconciled. - Additional Information Resuscitation Status: Full Code Referrals: CORAZON CARRION PA-C [Primary Care Provider] - Follow up as needed Home Medications: Anastrozole [Arimidex 1 mg Tablet] 1 mg PO QAM 01/29/20 Aspirin [Ecotrin 81 mg EC Tablet] 81 mg PO QHS 01/29/20 Atorvastatin Calcium [Lipitor 20 mg Tablet] 20 mg PO QHS 01/29/20 Carvedilol [Coreg 12.5 mg Tablet] 12.5 mg PO Q12 01/29/20 Escitalopram Oxalate [Lexapro 10 mg Tablet] 20 mg PO QHS 01/29/20 Furosemide [Lasix 20 mg Tablet] 20 mg PO BID 01/29/20 Levothyroxine Sodium [Synthroid 0.15 mg Tablet] 0.15 mg PO QHS 01/29/20 Metformin HCl [Glucophage 500 mg Tablet] 500 mg PO BID 01/29/20 Ropinirole HCl [Requip 2 mg Tablet] 2 mg PO Q12 01/29/20 Losartan Potassium [Cozaar 50 mg Tablet] 50 mg PO QHS 03/16/20 Spironolactone [Aldactone 25 mg Tablet] 25 mg PO QAM 03/16/20 History of Present Illiness History of Present Illness: SANDY DANG is a 89 year old female who presented to the emergency room with a 2-day history of lightheadedness/dizziness. The patient was noted to have dem entia and her historical input is of limited reliability. She admits developing lightheadedness 2 days ago with gradual worsening resulting in her presentation to the emergency room for evaluation and treatment. Her lightheadedness was accompanied by mild generalized weakness and was associated with mild dyspnea. She denies other associated or accompanying signs and symptoms. She admits prior similar episodes with past illnesses. In the emergency room she was noted to have pyuria and was also clinically dehydrated. Her serum sodium was 128 and potassium was 6.2. Her hyperkalemia was treated with an IV medication cocktail in the ER. Blood and urine cultures were obtained. IV antibiotic therapy was initiated. She was subsequently admitted to the hospital for further evaluation and treatment. Hospital Course Hospital Course: (1) Hyponatremia Resolved. Possibly due to SSRIs. Continue daily BMP, seizure precautions implemented. Outpatient PCP follow-up for routine electrolyte monitoring. (2) Acute encephalopathy Resolved. Likely due to UTI. Alert and oriented x3. (3) CAD (coronary artery disease) Denied any anginal symptoms. Continued statins, beta-blockers and ARB. Outpatient PCP and cardiology follow-up. (4) Dementia Supportive measures. Outpatient PCP follow-up. (5) HTN (hypertension) Euvolemic. Normotensive. Continue current meds. Outpatient PCP follow-up. (6) Hypothyroidism Continue current meds. Outpatient PCP follow-up. (7) Type 2 diabetes mellitus Well-controlled. Was a started on diabetic diet. Basal, sliding scale and correctional insulin. Hypoglycemic protocol. Accu-Chek. Resume home meds upon discharge. Outpatient follow-up (8) UTI (urinary tract infection) E. coli pansensitive. Received a complete course of IV ceftriaxone. (9) Hyperkalemia Resolved. Spironolactone held during hospitalization. Resume upon discharge with close follow-up of potassium level and follow-up with PCP. If still hyperkalemic spironolactone may be DC'd in the future. Physical Exam Vital Signs: Temp Pulse Resp BP Pulse Ox 97.6 F 58 L 16 149/52 H 96 03/25/20 09:57 03/25/20 07:45 03/25/20 07:45 03/25/20 07:45 03/25/20 07:45 Intake & Output 03/24/20 03/25/20 03/26/20 06:59 06:59 06:59 Intake Total 1170 170 236 Balance 1170 170 236 Weight 61.6 kg 63.4 kg Neck exam: ABSENT: carotid bruit, JVD, lymphadenopathy, thyromegaly Respiratory exam: PRESENT: clear to auscultation stella. ABSENT: rales, rhonchi, wheezes GI/Abdominal exam: PRESENT: normal bowel sounds, soft. ABSENT: distended, guarding, mass, organolmegaly, rebound, tenderness Neurological exam: PRESENT: alert, awake, oriented to person, oriented to place, oriented to time, CN II-XII grossly intact. ABSENT: motor sensory deficit Results Laboratory Results: WBC 10.1 10^3/uL (4.0-10.5) 03/22/20 04:34 RBC 4.01 10^6/uL (3.72-5.28) 03/22/20 04:34 Hgb 9.9 g/dL (12.0-15.5) L 03/22/20 04:34 Hct 29.4 % (36.0-47.0) L 03/22/20 04:34 MCV 73 fl (80-97) L 03/22/20 04:34 MCH 24.6 pg (27.0-33.4) L 03/22/20 04:34 MCHC 33.6 g/dL (32.0-36.0) 03/22/20 04:34 RDW 19.8 % (11.5-14.0) H 03/22/20 04:34 Plt Count 558 10^3/uL (150-450) H 03/22/20 04:34 Lymph % (Auto) 14.8 % (13-45) 03/22/20 04:34 Hardy % (Auto) 16.2 % (3-13) H 03/22/20 04:34 Eos % (Auto) 1.2 % (0-6) 03/22/20 04:34 Baso % (Auto) 1.1 % (0-2) 03/22/20 04:34 Absolute Neuts (auto) 6.8 10^3/uL (1.7-8.2) 03/22/20 04:34 Absolute Lymphs (auto) 1.5 10^3/uL (0.5-4.7) 03/22/20 04:34 Absolute Monos (auto) 1.6 10^3/uL (0.1-1.4) H 03/22/20 04:34 Absolute Eos (auto) 0.1 10^3/uL (0.0-0.6) 03/22/20 04:34 Absolute Basos (auto) 0.1 10^3/uL (0.0-0.2) 03/22/20 04:34 Seg Neutrophils % 66.7 % (42-78) 03/22/20 04:34 Sodium 134.5 mmol/L (137-145) L 03/24/20 05:06 Potassium 4.2 mmol/L (3.6-5.0) 03/24/20 05:06 Chloride 99 mmol/L (98-107) 03/24/20 05:06 Carbon Dioxide 29 mmol/L (22-30) 03/24/20 05:06 Anion Gap 7 (5-19) 03/24/20 05:06 BUN 27 mg/dL (7-20) H 03/24/20 05:06 Creatinine 0.63 mg/dL (0.52-1.25) 03/24/20 05:06 Est GFR ( Amer) > 60 (>60) 03/24/20 05:06 Est GFR (MDRD) Non-Af > 60 (>60) 03/24/20 05:06 Glucose 164 mg/dL (75-110) H 03/24/20 05:06 POC Glucose 192 mg/dL (70-110) H 03/25/20 06:17 Hemoglobin A1c % 8.0 % (4.7-6.0) H 03/17/20 03:39 Calcium 8.9 mg/dL (8.4-10.2) 03/24/20 05:06 Magnesium 2.0 mg/dL (1.6-2.3) 03/23/20 10:47 Total Bilirubin 0.2 mg/dL (0.2-1.3) 03/15/20 22:32 Direct Bilirubin 0.2 mg/dL (0.0-0.4) 03/15/20 22:32 Neonat Total Bilirubin Not Reportable 03/15/20 22:32 Neonat Direct Bilirubin Not Reportable 03/15/20 22:32 Neonat Indirect Bili Not Reportable 03/15/20 22:32 AST 33 U/L (14-36) 03/15/20 22:32 ALT 21 U/L (<35) 03/15/20 22:32 Alkaline Phosphatase 167 U/L (38-126) H 03/15/20 22:32 Creatine Kinase 78 U/L (30-135) 03/15/20 22:32 CK-MB (CK-2) 3.58 ng/mL (<4.55) 03/15/20 22:32 Troponin I < 0.012 ng/mL 03/15/20 22:32 NT-Pro-B Natriuret Pep 394 pg/mL (<450) 03/15/20 22:32 Total Protein 7.0 g/dL (6.3-8.2) 03/15/20 22:32 Albumin 3.9 g/dL (3.5-5.0) 03/15/20 22:32 Triglycerides 124 mg/dL (<150) 03/17/20 03:39 Cholesterol 136.50 mg/dL (0-200) 03/17/20 03:39 LDL Cholesterol Direct 71 mg/dL (<100) 03/17/20 03:39 VLDL Cholesterol 25.0 mg/dL (10-31) 03/17/20 03:39 HDL Cholesterol 38 mg/dL (>40) L 03/17/20 03:39 TSH 0.58 uIU/mL (0.47-4.68) 03/17/20 03:39 Urine Color STRAW 03/15/20 22:43 Urine Appearance SLIGHTLY-CLOUDY 03/15/20 22:43 Urine pH 5.0 (5.0-9.0) 03/15/20 22:43 Ur Specific [place] 1.005 03/15/20 22:43 Urine Protein NEGATIVE mg/dL (NEGATIVE) 03/15/20 22:43 Urine Glucose (UA) NEGATIVE mg/dL (NEGATIVE) 03/15/20 22:43 Urine Ketones NEGATIVE mg/dL (NEGATIVE) 03/15/20 22:43 Urine Blood NEGATIVE (NEGATIVE) 03/15/20 22:43 Urine Nitrite NEGATIVE (NEGATIVE) 03/15/20 22:43 Urine Bilirubin NEGATIVE (NEGATIVE) 03/15/20 22:43 Urine Urobilinogen NEGATIVE mg/dL (<2.0) 03/15/20 22:43 Ur Leukocyte Esterase LARGE (NEGATIVE) H 03/15/20 22:43 Urine WBC (Auto) 55 /HPF 03/15/20 22:43 Urine RBC (Auto) 2 /HPF 03/15/20 22:43 U Hyaline Cast (Auto) 3 /LPF 03/15/20 22:43 Urine Bacteria (Auto) 3+ /HPF 03/15/20 22:43 Urine WBC Clumps FEW /HPF 03/15/20 22:43 Squamous Epi Cells Auto 1 /HPF 03/15/20 22:43 Urine Mucus (Auto) RARE /LPF 03/15/20 22:43 Urine Ascorbic Acid NEGATIVE (NEGATIVE) 03/15/20 22:43 Urine Opiates Screen NEGATIVE 03/15/20 22:43 Urine Methadone Screen NEGATIVE 03/15/20 22:43 Ur Barbiturates Screen NEGATIVE 03/15/20 22:43 Ur Phencyclidine Scrn NEGATIVE 03/15/20 22:43 Ur Amphetamines Screen NEGATIVE 03/15/20 22:43 U Benzodiazepines Scrn NEGATIVE 03/15/20 22:43 Urine Cocaine Screen NEGATIVE 03/15/20 22:43 U Marijuana (THC) Screen NEGATIVE 03/15/20 22:43 Serum Alcohol < 10 mg/dL (NONE DETECTED) 03/15/20 22:32 COVID-19 Source See comment 03/20/20 10:02 COVID-19 (KT) Not Detected (Not Detect) 03/20/20 10:02 03/15/20 22:32 CK-MB (CK-2) 3.58 Troponin I < 0.012 NT-Pro-B Natriuret Pep 394 Impressions: Head CT 03/15/20 22:36 IMPRESSION: No acute intracranial findings. Chest X-Ray 03/15/20 22:37 IMPRESSION: Questionable right basilar pneumonia. Stroke Is this a Stroke Patient?: No Acute Heart Failure Is this a Heart Failure Patient?: No
[2020-03-25 14:10] VITALS: BP 157/52
== END 2020-03-25 14:31 | DRG 641 ==
LOC: ER 22:19 → OBSVTOIN 03-16 01:11 → EH 03-16 01:11 → 4N 03-16 02:30
PROVIDERS: ADMIT Emergency Medicine; ATTEND Internal Medicine
DX: E87.1 Hypo-osmolality and hyponatremia (principal); G93.40 Encephalopathy, unspecified; N39.0 Urinary tract infection, site not specified; E87.5 Hyperkalemia; R42 Dizziness and giddiness; I50.9 Heart failure, unspecified; I11.0 Hypertensive heart disease with heart failure; E78.00 Pure hypercholesterolemia, unspecified; E86.0 Dehydration; E03.9 Hypothyroidism, unspecified; J44.9 Chronic obstructive pulmonary disease, unspecified; E11.65 Type 2 diabetes mellitus with hyperglycemia; K21.9 Gastro-esophageal reflux disease without esophagitis; F03.90 Unspecified dementia, unspecified severity, without behavioral disturbance, psychotic disturbance, mood disturbance, and anxiety; B96.89 Other specified bacterial agents as the cause of diseases classified elsewhere; Z20.828 Contact with and (suspected) exposure to other viral communicable diseases; Z86.73 Personal history of transient ischemic attack (TIA), and cerebral infarction without residual deficits; Z79.84 Long term (current) use of oral hypoglycemic drugs; Z79.82 Long term (current) use of aspirin; Z79.899 Other long term (current) drug therapy
CPT/HCPCS: 36415; 70450; 71045; 80048; 80053; 80061; 80307; 81001; 82550; 82553; 82962; 83036; 83735; 83880; 84132; 84443; 84484; 85025; 85027; 87086; 87088; 87186; 87635; 93005; 93010; 94640; 96365; 96375; 99291; J0610; C9803; J0360; J0696; J1644; J1815; J3490; J7030

== ENCOUNTER 2020-04-26 13:59 | Emergency (ER) | payer MEDICARE, OTHER ==
[2020-04-26] MEDS ORDERED: LIDOCAINE 4%/TETRACAINE 0.5%/EPI 0.18% 5 ML TOPICAL SOLN TOP ONE (15:21)
--- NOTE | 2020-04-26 15:31 | ER Document Report ---
ED Fall - General Chief Complaint: Fall Stated Complaint: EYE PAIN Time Seen by Provider: 04/26/20 15:10 Primary Care Provider: CORAZON CARRION PA-C [Primary Care Provider] - Follow up as needed TRAVEL OUTSIDE OF THE [place] IN LAST 30 DAYS: No - HPI Notes: Patient is an 89-year-old female with a past medical history of dementia who presents after a fall. She lives with her . He went out to do groceries. When he came home, patient was sitting on the carpet. She has a la ceration to her left eyebrow. He thinks that she may have hit her head on the table. Patient is declining any pain. She states she has not been sick. She is not on any blood thinners. She normally uses her walker at home. - Related data Allergies/Adverse Reactions: diazepam [From Valium] Allergy (Verified 03/10/20 13:46) Past Medical History - General Information source: Patient, Relative - Social History Smoking Status: Never Smoker Family History: CAD, Hypertension - Past Medical History Cardiac Medical History: Reports: Hx Congestive Heart Failure, Hx Hypercholesterolemia, Hx Hypertension Denies: Hx Atrial Fibrillation, Hx Coronary Artery Disease, Hx DVT, Hx Heart Attack, Hx Peripheral Vascular Disease, Hx Pulmonary Embolism Pulmonary Medical History: Reports: Hx COPD, Hx Pneumonia, Hx Respiratory Failure Denies: Hx Asthma, Hx Bronchitis, Hx Tuberculosis Neurological Medical History: Reports: Hx Cerebrovascular Accident. Denies: Hx Seizures Endocrine Medical History: Reports: Hx Diabetes Mellitus Type 2, Hx Hypothyroidism. Denies: Hx Diabetes Mellitus Type 1, Hx Hyperthyroidism Renal/ Medical History: Denies: Hx Peritoneal Dialysis Malignancy Medical History: Reports: Hx Breast Cancer GI Medical History: Reports: Hx Gastroesophageal Reflux Disease. 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 Denies: Hx Hysterectomy - Immunizations Hx Diphtheria, Pertussis, Tetanus Vaccination: Yes Hx Pneumococcal Vaccination: 06/14/12 Review of Systems - Review of Systems Notes: CONSTITUTIONAL: No fever, fatigue or weight loss. SKIN: No rash. HENT: No congestion, ear pain, or sore throat. Laceration over left eyebrow EYES: No recent vision problems or eye pain. ENDOCRINE: No thyroid problems. No polyuria or polydipsia. CARDIOVASCULAR: No chest pain or edema. RESPIRATORY: No cough, shortness of breath, congestion, or wheezing. GASTROINTESTINAL: No abdominal pain, nausea, vomiting, bloody stools or diarrhea. GENITOURINARY: Chronic urinary incontinence MUSCULOSKELETAL: No joint pain or swelling. LYMPHATIC: No swollen glands. NEUROLOGIC: No seizures. No headache, focal weakness or sensory changes. HEMATOLOGIC: No unusual bruising or bleeding. PSYCHIATRIC: No depression or anxiety. Physical Exam - Vital signs Vitals: Temp 98.1 F 04/26/20 14:15 - General General appearance: Appears well Notes: VITAL SIGNS: Within normal limits. GENERAL: No acute distress, non-toxic appearance. HEAD: Normal with no signs of head trauma. EYES: PERRLA, EOMI, conjunctiva normal, no discharge. EARS: Hard of hearing NOSE: Normal. THROAT: Oropharynx is normal. NECK: Normal range of motion, no tenderness, supple, no lymphadenopathy, No adenopathy, no JVD. CHEST: Clear breath sounds bilaterally. No wheezes, rales, or rhonchi. CARDIAC: Regular rate and rhythm. S1 and S2, without murmurs, gallops, or rubs. VASCULAR: No Edema. Peripheral pulses normal and equal in all extremities. ABDOMEN: Normal and soft with no tenderness GENITOURINARY: Normal, No tenderness LYMPATHTIC: No lymphadenopathy noted. MUSCULOSKELETAL: Good range of motion of all major joints. Shoulder with slight bruise on the left. Range of motion intact. Nontender to palpation of upper and lower extremities. Nontender to palpation of spine. No spinal step- offs. NEUROLOGICAL: No focal sensory or strength deficits. Speech normal. Follows commands appropriately. PSYCHIATRIC: Normal Affect, judgement and mood. SKIN: Approximately 2 cm laceration over left eyebrow. Bleeding controlled. Course - Re-evaluation Re-evalutation: 04/26/20 18:10 Patient appears well on exam. She is denying any complaints. Her laceration was sutured without difficulty. Lab work is unremarkable and comparable to her usual. Urinalysis is pending. Likely she will be discharged home. Patient's urinalysis shows a UTI. Her states she always has a UTI on her urinalysis. She has been susceptible to Keflex in the past. Patient will be given Keflex and a prescription. Urine culture sent. is unsure when her last tetanus was and I do not have records of it in the computer. We will update her tetanus today. Patient was given strict return precautions. Her is in agreement. He states he would like to take him home now as she is getting hungry. Patient was told to follow-up with her PCP. 04/27/20 02:18 - Vital Signs Vital signs: Temp Pulse Resp BP Pulse Ox 98.4 F 18 167/69 H 98 04/26/20 18:32 04/26/20 19:31 04/26/20 19:31 04/26/20 19:01 - Laboratory Result Diagrams: 04/26/20 14:38 04/26/20 14:38 Laboratory results interpreted by me: 04/26/20 04/26/20 04/26/20 14:38 14:38 18:14 Hgb 9.4 L Hct 29.2 L MCV 76 L MCH 24.5 L RDW 21.0 H Plt Count 593 H Lamar % (Auto) 15.0 H Sodium 135.1 L Potassium 5.3 H BUN 28 H Glucose 146 H AST 39 H Alkaline Phosphatase 169 H Albumin 3.4 L Urine Nitrite POSITIVE H Ur Leukocyte Esterase LARGE H - Diagnostic Test Radiology reviewed: Image reviewed, Reports reviewed - EKG Interpretation by Me EKG shows normal: Sinus rhythm Rate: Normal [place]/QRS: Left axis deviation When compared to previous EKG there are: No significant change Procedures - Laceration/Wound Repair Left Face Time completed: 18:10 Wound length (cm): 2 Wound's Depth, Shape: Superficial Laceration pre-procedure: Sterile PPE donned, Sterile drapes applied, Other - Normal saline Anesthetic type: Other - LET Wound explored: Clean Wound Repaired With: Sutures Suture Size/Type: 6:0, Nylon Number of Sutures: 3 Post-procedure wound care: Sterile dressing applied Complications: No Discharge - Discharge Clinical Impression: Laceration Fall Qualifiers: Encounter type: initial encounter Qualified Code(s): W19.XXXA - Unspecified fall, initial encounter UTI (urinary tract infection) Qualifiers: Urinary tract infection type: site unspecified Hematuria presence: without hematuria Qualified Code(s): N39.0 - Urinary tract infection, site not specified Head injury Qualifiers: Encounter type: initial encounter Qualified Code(s): S09.90XA - Unspecified injury of head, initial encounter Condition: Stable Disposition: HOME, SELF-CARE Instructions: Laceration Care ([facility]), Urinary Tract Infection ([facility]) Additional Instructions: Please have your sutures removed in 5 days. Return to the ER for any fevers, redness, pain. Take your antibiotics as prescribed. Prescriptions: Cephalexin Monohydrate [Keflex 500 mg Capsule] 500 mg PO BID 7 Days #14 capsule Referrals: CORAZON CARRION PA-C [Primary Care Provider] - Follow up as needed
[2020-04-26 15:41] LABS: ABSOLUTE BASOPHILS # (AUTO) 0.1 10^3/uL (0.0-0.2); ABSOLUTE EOSINOPHILS # (AUTO) 0.2 10^3/uL (0.0-0.6); ABSOLUTE LYMPHOCYTES (AUTO) 1.2 10^3/uL (0.5-4.7); ABSOLUTE MONOCYTES (AUTO) 1.1 10^3/uL (0.1-1.4); ABSOLUTE NEUT (AUTO) 4.8 10^3/uL (1.7-8.2); EOSINOPHILS % (AUTO) 2.2 % (0-6); HEMATOCRIT 29.2 % (36.0-47.0); HEMOGLOBIN 9.4 g/dL (12.0-15.5); LYMPHOCYTES % (AUTO) 16.7 % (13-45); MEAN CORPUSCULAR HEMOGLOBIN 24.5 pg (27.0-33.4); MEAN CORPUSCULAR HGB CONC 32.2 g/dL (32.0-36.0); MEAN CORPUSCULAR VOLUME 76 fl (80-97); PLATELET COUNT 593 10^3/uL (150-450); RED BLOOD COUNT 3.84 10^6/uL (3.72-5.28); SEGMENTED NEUTROPHILS % (AUTO) 65.1 % (42-78); TOTAL CELLS COUNTED % (AUTO) 100 %; WHITE BLOOD COUNT 7.4 10^3/uL (4.0-10.5)
[2020-04-26 15:54] LABS: ALBUMIN 3.4 g/dL (3.5-5.0); ALKALINE PHOSPHATASE 169 U/L (38-126); ANION GAP 8 (5-19); ASPARTATE AMINO TRANSFERASE 39 U/L (14-36); BILIRUBIN,DIRECT 0.1 mg/dL (0.0-0.4); BILIRUBIN,TOTAL 0.4 mg/dL (0.2-1.3); BLOOD UREA NITROGEN 28 mg/dL (7-20); CALCIUM 9.5 mg/dL (8.4-10.2); CARBON DIOXIDE 28 mmol/L (22-30); CHLORIDE 99 mmol/L (98-107); CREATINE KINASE 49 U/L (30-135); GLUCOSE 146 mg/dL (75-110); POTASSIUM 5.3 mmol/L (3.6-5.0); TOTAL PROTEIN 6.4 g/dL (6.3-8.2)
--- NOTE | 2020-04-26 16:03 | RADIOLOGY REPORT (SQ) ---
EXAM DESCRIPTION: CT HEAD WITHOUT IMAGES COMPLETED DATE/TIME: 04/26/2020 3:53 pm REASON FOR STUDY: fall, head injury COMPARISON: 03/15/2020 TECHNIQUE: Axial images acquired through the brain without intravenous contrast. Images reviewed wi th bone, brain and subdural windows. Additional sagittal and coronal reconstructions were generated. Images stored on PACS. All CT scanners at this facility use dose modulation, iterative reconstruction, and/or weight based d osing when appropriate to reduce radiation dose to as low as reasonably achievable (ALARA). [facility]: Dose Right [facility]: CareDose [facility]: Dose Right [facility]: Teradose 4D [facility]: [place] RADIATION DOSE: CT Rad equipment meets quality standard of care and radiation dose reduction techniq ues were employed. CTDIvol: 53.2 - 55.2 mGy. DLP: 2128 mGy-cm.mGy. LIMITATIONS: Study is very limited secondary to patient motion. FINDINGS: VENTRICLES: Prominent. CEREBRUM: No masses. No hemorrhage. No midline shift. Areas of low density in the white matter mos t likely due to chronic micro-vascular ischemic change. No evidence for acute infarction. CEREBELLUM: No masses. No hemorrhage. No alteration of density. No evidence for acute infarction. EXTRAAXIAL SPACES: Age-related involutional change. No fluid collections. No masses. ORBITS AND GLOBE: No intra- or extraconal masses. Normal contour of globe without masses. CALVARIUM: No fracture. PARANASAL SINUSES: No fluid or mucosal thickening. SOFT TISSUES: No mass or hematoma. OTHER: No other significant finding. IMPRESSION: CHRONIC CHANGES OF ATROPHY AND MICROVASCULAR ISCHEMIA. NO ACUTE PROCESS. EVIDENCE OF ACUTE STROKE: NO. TECHNICAL DOCUMENTATION: JOB ID: [id number] Quality ID # [id number]: Final reports with documentation of one or more dose reduction techniques (e.g., Au tomated exposure control, adjustment of the mA and/or kV according to patient size, use of iterative reconstruction technique) 2010 [employer]- All Rights Reserved Reading location - IP/workstation name: [email or web address]
--- NOTE | 2020-04-26 16:07 | RADIOLOGY REPORT (SQ) ---
EXAM DESCRIPTION: CT CERVICAL SPINE WITHOUT IMAGES COMPLETED DATE/TIME: 04/26/2020 3:53 pm REASON FOR STUDY: fall, head injury COMPARISON: 01/14/2019 TECHNIQUE: Axial images acquired through the cervical spine without intravenous contrast. Images re viewed with lung, soft tissue and bone windows. Reconstructed coronal and sagittal MPR images review ed. Images stored on PACS. All CT scanners at this facility use dose modulation, iterative reconstruction, and/or weight based d osing when appropriate to reduce radiation dose to as low as reasonably achievable (ALARA). [facility]: Dose Right [facility]: CareDose [facility]: Dose Right [facility]: Teradose 4D [facility]: [place] RADIATION DOSE: CT Rad equipment meets quality standard of care and radiation dose reduction techniq ues were employed. CTDIvol: 21.3 mGy. DLP: 389 mGy-cm. mGy. LIMITATIONS: None. FINDINGS: ALIGNMENT: Grade 1 anterolisthesis of C6 on C7. MINERALIZATION: Normal. VERTEBRAL BODIES: No fractures or dislocation. DISCS: Multilevel disc space narrowing with osteophytes. FACETS, LATERAL MASSES, POSTERIOR ELEMENTS: Facet arthropathy. No fractures. No dislocation. No ac afognak findings. HARDWARE: None in the spine. VISUALIZED RIBS: Upper lobe airspace disease nonspecific most likely atelectasis. LUNG APICES AND SOFT TISSUES: No significant or acute findings. OTHER: No other significant finding. IMPRESSION: CHRONIC DEGENERATIVE CHANGES. NO ACUTE FINDINGS. TECHNICAL DOCUMENTATION: JOB ID: [id number] Quality ID # [id number]: Final reports with documentation of one or more dose reduction techniques (e.g., Au tomated exposure control, adjustment of the mA and/or kV according to patient size, use of iterative reconstruction technique) 2010 [employer]- All Rights Reserved Reading location - IP/workstation name: [email or web address]
--- NOTE | 2020-04-26 16:09 | RADIOLOGY REPORT (SQ) ---
EXAM DESCRIPTION: CT FACIAL AREA WITHOUT IMAGES COMPLETED DATE/TIME: 04/26/2020 3:53 pm REASON FOR STUDY: fall, left eyebrow laceration COMPARISON: 01/19/2012 TECHNIQUE: Noncontrasted images through the facial bones and orbits windowed for bone and soft tissu e. Additional coronal and sagittal reconstructed images reviewed. All images stored on PACS. All CT scanners at this facility use dose modulation, iterative reconstruction, and/or weight based d osing when appropriate to reduce radiation dose to as low as reasonably achievable (ALARA). [facility]: Dose Right [facility]: CareDose [facility]: Dose Right [facility]: Teradose 4D [facility]: [employer] RADIATION DOSE: CT Rad equipment meets quality standard of care and radiation dose reduction techniq ues were employed. CTDIvol: 30.4 mGy. DLP: 574 mGy-cm. mGy. LIMITATIONS: Patient motion. FINDINGS: FACIAL BONES: No fracture or bone lesion. ORBITS: Intact. No fracture. Symmetric intact globes and retroorbital soft tissues. PARANASAL SINUSES: Clear. No significant mucosal thickening, mass or fluid. No nasal polyps. Maxill carlton sinus outlets are patent. SOFT TISSUES: No mass or edema. INFERIOR BRAIN: Limited view. No acute findings. OTHER: No other significant finding. IMPRESSION: Limited study due to patient motion. No definite fractures. Mandible cannot be adequat giovanni assessed. TECHNICAL DOCUMENTATION: JOB ID: [id number] Quality ID # [id number]: Final reports with documentation of one or more dose reduction techniques (e.g., Au tomated exposure control, adjustment of the mA and/or kV according to patient size, use of iterative reconstruction technique) 2010 [employer]- All Rights Reserved Reading location - IP/workstation name: [email or web address]
--- NOTE | 2020-04-26 18:26 | RADIOLOGY REPORT (SQ) ---
EXAM DESCRIPTION: CHEST SINGLE VIEW IMAGES COMPLETED DATE/TIME: 04/26/2020 5:08 pm REASON FOR STUDY: fall COMPARISON: 03/15/2020 EXAM PARAMETERS: NUMBER OF VIEWS: One view. TECHNIQUE: Single frontal radiographic view of the chest acquired. RADIATION DOSE: NA LIMITATIONS: None. FINDINGS: LUNGS AND PLEURA: Lungs are hyperinflated. Elevation the right hemidiaphragm is stable. No focal consolidation or pleural effusion. No pneumothorax. MEDIASTINUM AND HILAR STRUCTURES: No masses. Contour normal. HEART AND VASCULAR STRUCTURES: Heart normal in size. Normal vasculature. BONES: No acute findings. HARDWARE: None in the chest. OTHER: No other significant finding. IMPRESSION: No significant interval change. No acute cardiopulmonary disease. TECHNICAL DOCUMENTATION: JOB ID: [id number] 2010 [employer]- All Rights Reserved Reading location - IP/workstation name: [email or web address]
[2020-04-26 18:44] LABS: APPEARANCE,URINE CLOUDY; BILIRUBIN,URINE NEGATIVE (NEGATIVE); COLOR,URINE YELLOW; GLUCOSE, URINE NEGATIVE (NEGATIVE); KETONES,URINE NEGATIVE (NEGATIVE); LEUKOCYTE ESTERASE,URINE LARGE (NEGATIVE); NITRITE,URINE POSITIVE (NEGATIVE); PROTEIN,URINE NEGATIVE (NEGATIVE); UROBILINOGEN,URINE NEGATIVE mg/dL (<2.0)
[2020-04-26] MEDS ORDERED: CEPHALEXIN 500 MG CAPSULE PO ONE (18:59)
[2020-04-26] MEDS ORDERED: DIPH/PERTUSS(ACELL)/TETANUS VAC/PF 0.5 ML SYR (>=10YO) IM ONE (19:09)
[2020-04-26 19:44] VITALS: BP 167/69
--- NOTE | 2020-04-27 09:51 | EKG REPORT ---
SEVERITY:- OTHERWISE NORMAL ECG - SINUS RHYTHM LEFT AXIS DEVIATION : Confirmed by: Roel Cordero 27-Apr-2020 09:50:37
== END 2020-04-26 19:44 | disposition home or self-care (01) ==
LOC: ER 13:59
DX: S01.112A Laceration without foreign body of left eyelid and periocular area, initial encounter (principal); W01.0XXA Fall on same level from slipping, tripping and stumbling without subsequent striking against object, initial encounter; Y92.009 Unspecified place in unspecified non-institutional (private) residence as the place of occurrence of the external cause; M47.812 Spondylosis without myelopathy or radiculopathy, cervical region; N39.0 Urinary tract infection, site not specified; F03.90 Unspecified dementia, unspecified severity, without behavioral disturbance, psychotic disturbance, mood disturbance, and anxiety; I10 Essential (primary) hypertension; J44.9 Chronic obstructive pulmonary disease, unspecified; E11.9 Type 2 diabetes mellitus without complications; Z23 Encounter for immunization; Z88.8 Allergy status to other drugs, medicaments and biological substances
CPT/HCPCS: 93005; 99285; 90471; 36415; 87086; 82550; 83735; 85025; 87088; 80053; 81001; 84484; 87186; 71045; 70450; 70486; 72125; 90715; 93010; 12011; A9270; J3490